=== PATIENT | male | born 1945 | race Caucasian/White ===

== ENCOUNTER 2017-04-10 08:46 | Day surgery (SDC) | payer OTHER ==
[~2017-04-10 08:46] MED LIST: ASPI-630 PO; ATOR40TA PO; CHOL500016 PO; DULA1.5P SQ; GLIM4TAB2 PO; HYDR12.58 PO; HYDROmorphone 2 MG/ML VIAL IV PRN; INSU300I SQ; IOHEXOL 300 MG/ML 50 ML VIAL. ONE; IV RINGERS,LACTATED 1000ML 1,000 ML IV SCH; LEVO50TA PO; LIDOCAINE 1% 1 ML SYRINGE. ID PRN; METO25TA9 PO; MORPHINE SULFATE 2 MG/ML DISP.SYRIN. IV PRN; NIAC500T PO; ONDANSETRON PF 4 MG/2 ML VIAL. IV PRN; PROCHLORPERAZINE 10 MG/2 ML VIAL. IV PRN; fentaNYL PF VIAL 100 MCG/2 ML VIAL IV PRN
[2017-04-10] MEDS ORDERED: IV RINGERS,LACTATED 1000ML 1,000 ML IV SCH (10:30)
[2017-04-10] MEDS ORDERED: LIDOCAINE 2% PF Vial for OR 5 ML VIAL. ONE (11:03)
[2017-04-10] MEDS ORDERED: DEXAMETHASONE SOD PHOS 20 MG/5 ML VIAL. ONE (11:03)
[2017-04-10] MEDS ORDERED: PROPOFOL 20 ML IV ONE (11:03)
[2017-04-10] MEDS ORDERED: fentaNYL PF VIAL 100 MCG/2 ML VIAL ONE (11:03)
[2017-04-10] MEDS ORDERED: ONDANSETRON PF 4 MG/2 ML VIAL. ONE (11:03)
[2017-04-10] MEDS ORDERED: SEVOFLURANE 31 TO 60 MINUTES. IH ONE (12:05)
--- NOTE | 2017-04-10 12:33 | PDOC ---
BRIEF OPERATIVE NOTE Date: Apr 10, 2017 Pre-Op Diagnosis Left hydronephrosis, atrophic left kidney Post-Op Diagnosis same, obstructed Left ureter Procedure Performed Cystoscopy left retrograde pyelogram Surgeon Beverly Anesthesia Type: General Specimens Obtained None Findings obstructed left ureter-etiology? Complications None Additional Remarks Ureter obstructed at level of sacral-iliac joint left MORENO RODRIGUEZ DO Apr 10, 2017 12:33
--- NOTE | 2017-04-10 12:34 | DISCH ---
DISCHARGE INSTRUCTIONS Condition on Discharge Condition on Discharge: Stable Activity After Discharge Activity Instructions for Disc: Activity as tolerated Driving Instructions after Dis: Do not drive today Diet after Discharge Diet after Discharge: Regular Contacting the DR. after DC Call your doctor for: Concerns you may have Follow-Up Follow up with: follow up with MORENO Owen DO Apr 10, 2017 12:34
[2017-04-10] MEDS ORDERED: CIPR500T94 PO (12:40)
[2017-04-10 13:06] VITALS: BP 150/70
--- NOTE | 2017-04-10 15:50 | OP ---
DATE OF SURGERY: 04/10/2017 PREOPERATIVE DIAGNOSIS: Left hydronephrosis, renal insufficiency. POSTOPERATIVE DIAGNOSIS: Left hydronephrosis, renal insufficiency, and obstructed left ureter. PROCEDURE: Cystoscopy, left retrograde pyelograms. SURGEON: Moreno Rodriguez DO ANESTHESIA: General. INDICATIONS AND JUDGMENT: This is a 72-year-old obese male, patient of Dr. Hernandez, who has renal insufficiency and is found to have left hydronephrosis and atrophic left kidney. It was felt that he should undergo cystoscopy, left retrograde pyelogram to investigate the etiology. The procedure was explained to the patient. He appeared to understand and was agreeable. DESCRIPTION OF PROCEDURE: The patient was preloaded with IV antibiotic. He was taken to the Operating Room and placed on the operating room table in supine position, given a general anesthetic and then placed in a dorsal lithotomy position using Ezekiel stirrup since we do not have a cystoscopy table. A C-arm was moved into position. Rigid cystoscopy was performed with a 21-[place] rigid cystoscope. The urethra was normal in course and caliber. He has a very high bladder neck and tight suspensory ligament, and it was somewhat difficult to get into the bladder. Once into the bladder, I was able to find the left ureteral orifice which was difficult to cannulate. I initially cannulated with an 8-[place] cone tip catheter and injected contrast. There was a hook defect in the distal ureter, and the contrast only went up to the level of the sacroiliac junction. I then attempted to pass a guide wire, but it became obstructed at the same level. Therefore, I passed a 5-[place] open-ended ureteral catheter up the ureter and then passed a wire through that, and even at that, the wire would not pass this obstruction of the ureter at the level of the sacroiliac joint. I injected contrast, and contrast would not pass this level either. Apparently, something has completely obstructed that ureter at this level. I was not able to get any type of wire or stent or contrast past this obstruction. The instruments were removed. The patient tolerated the procedure well and was sent to Recovery Room in satisfactory condition. The patient has a history of atrophic left kidney. Today's procedure reveals a complete obstruction of the distal left ureter at the level of the sacroiliac joint. Etiology is uncertain. 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 If there is a desire to proceed, it would have to be percutaneously through the kidney which may be difficult since the kidney is severely atrophic. The patient will be sent home on 3 days of Cipro antibiotics. He will follow up with Dr. Hernandez. MORENO RODRIGUEZ DO DR: PURNIMA/marcial JOB#: [id number] / [id number] Dr. Beverly Conde Dr.
== END 2017-04-10 13:23 | disposition home or self-care (01) ==
LOC: SURG 08:46
PROVIDERS: ATTEND Urology
DX: N13.1 Hydronephrosis with ureteral stricture, not elsewhere classified (principal); N28.9 Disorder of kidney and ureter, unspecified; N26.1 Atrophy of kidney (terminal); E78.00 Pure hypercholesterolemia, unspecified; I10 Essential (primary) hypertension; E03.9 Hypothyroidism, unspecified; E11.9 Type 2 diabetes mellitus without complications; Z98.42 Cataract extraction status, left eye; Z86.39 Personal history of other endocrine, nutritional and metabolic disease
CPT/HCPCS: 52005; 74420; 82962; C1769; J1100; J1956; J2405; J2704; J3010; Q9967

== ENCOUNTER 2018-12-27 14:07 | Inpatient (IN) | payer OTHER ==
[~2018-12-27] VITALS: Ht 170.2 cm; Wt 101.2 kg
[~2018-12-27 14:07] MED LIST changes: +CIPR500T94 PO; -HYDROmorphone 2 MG/ML VIAL IV PRN; -IOHEXOL 300 MG/ML 50 ML VIAL. ONE; -IV RINGERS,LACTATED 1000ML 1,000 ML IV SCH; -LIDOCAINE 1% 1 ML SYRINGE. ID PRN; +METO-239 PO; -METO25TA9 PO; -MORPHINE SULFATE 2 MG/ML DISP.SYRIN. IV PRN; -ONDANSETRON PF 4 MG/2 ML VIAL. IV PRN; -PROCHLORPERAZINE 10 MG/2 ML VIAL. IV PRN; -fentaNYL PF VIAL 100 MCG/2 ML VIAL IV PRN
[2018-12-27 15:00] VITALS: BP 130/54
--- NOTE | 2018-12-27 15:00 | NUR ---
Dr. Erickson notified while on the floor of consult, this nurse will continue to assist as needed.
--- NOTE | 2018-12-27 16:30 | NUR ---
This nurse discussed with Astrid, patient's niece, at [phone] about patient's home medications. Reviewed patient's home medications, preferred pharmacy, discussed with Trever RN, and will continue to assist as needed.
[2018-12-27] MEDS ORDERED: DEXTROSE 50% 25 GM / 50ML DISP.SYRIN. IV PRN (16:45)
[2018-12-27] MEDS ORDERED: INSULIN LISPRO 300 UNITS/3 ML INSULN.PEN. SQ SCH (17:00)
--- NOTE | 2018-12-27 18:01 | PDOC1 ---
History and Physical Date of Admission Date of Admission DATE: 12/27/18 TIME: 17:56 Identification/Chief Complaint Chief Complaint dark toes Source Source: Chart review, Patient History of Present Illness History of Present Illness Mr. Watson was transferred from ER at [facility]. he presented there today when he noticed his toes on his right foot had turned black. 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 toes are dry. He describes injuring them trying to nahed them into a shoe last week. He walks with a walker at baseline and lives at home His PCP is Noelle Andre Past Medical History Cardiovascular: HTN CENTRAL NERVOUS SYSTEM: CVA Endocrine: Diabetes Past Surgical History Past Surgical History: Other Family History Family History: Diabetes Social History ALCOHOL: none Current Medications Current Medications Current Medications Insulin Human Lispro (HumaLOG) 0-9 UNITS TIDWMEALS SQ ; Start 12/27/18 at 17:00 Dextrose (Dextrose 50%-Water Syringe) 12.5 gm PRN Q15MIN PRN IV SEE COMMENTS; Start 12/27/18 at 16:45 Active Scripts Active Reported Cipro (Ciprofloxacin Hcl) 500 Mg Tablet 1 Tab PO BID Niaspan (Niacin) 500 Mg Tab.er.24h 500 Mg PO HS Hydrochlorothiazide Tablet (Hydrochlorothiazide) 12.5 Mg Tablet 25 Mg PO DAILY Metoprolol Succinate ( Xl ) (Metoprolol Succinate) 25 Mg Tab.er.24h 25 Mg PO DAILY Lipitor (Atorvastatin Calcium) 40 Mg Tablet 40 Mg PO HS Trulicity (Dulaglutide) 1.5 Mg/0.5 Ml Pen.injctr 1.5 Mg SQ WEEKLY Toujeo Solostar (Insulin Glargine,Hum.rec.anlog) 300 Unit/1 Ml Insuln.pen 40 Unit SQ HS Aspirin 81 Mg Tab.chew 81 Mg PO BID Glimepiride 4 Mg Tablet 4 Mg PO BIDAC Synthroid (Levothyroxine Sodium) 50 Mcg Tablet 50 Mcg PO DAILYAC Vitamin D3 (Cholecalciferol (Vitamin D3)) 5,000 Unit Tablet 5,000 Unit PO DAILY Allergies Allergies: Coded Allergies: No Known Drug Allergies (Unverified , 04/10/17) ROS General: No: Chills, Night Sweats, Fatigue, Malaise, Appetite, Other PSYCHOLOGICAL ROS: YES: Sleep disturbances; No: Anxiety, Behavioral Disorder, Concentration difficultie, Decreased libido , Depression, Disorientation, Hallucinations, Hostility, Irritablity, Memory difficulties, Mood Swings, Obsessive thoughts, Other Eyes: No Blurry vision, No Decreased vision, No Double vision, No Dry eyes, No Excessive tearing, No Eye Pain, No Itchy Eyes, No Loss of vision, No Photophobia , No Scotomata, No Uses contacts, No Uses glasses, No Other Respiratory: YES: Cough; No: Hemoptysis, Orthopnea, Pleuritic Pain, Shortness of breath, SOB with excertion, Sputum Changes, Stridor, Tachypnea, Wheezing, Other Cardiovascular: No Chest Pain, No Palpitations, No Orthopnea, No Paroxysmal Noc. Dyspnea, No Edema, No Lt Headedness, No Other Gastrointestinal: No Nausea, No Vomiting, No Abdominal Pain, No Diarrhea, No Constipation, No Melena, No Hematochezia, No Other Genitourinary: No Dysuria, No Frequency, No Incontinence, No Hematuria, No Retention, No Discharge, No Urgency, No Pain, No Flank Pain, No Other, No , No , No , No , No , No , No Musculoskeletal: No Gait Disturbance, No Joint Pain, No Joint Stiffness, No Joint Swelling, No Muscle Pain, No Muscular Weakness, No Pain In:, No Swelling In:, No Other Neurological: No Behavorial Changes, No Bowel/Bladder ControlChng, No Confusion , No Dizziness, No Gait Disturbance, No Headaches, No Impaired Coord/balance, No Memory Loss, No Numbness/Tingling, No Seizures, No Speech Problems, No Tremors, No Visual Changes, No Weakness, No Other Physical Exam General: Oriented X3, No acute distress HEENT: Atraumatic, PERRLA, EOMI Lungs: Normal air movement Heart: murmurs, jugular vein distention Abdomen: Normal bowel sounds, Soft Rectal Exam: not examined Extremities: No clubbing, No edema Skin: Other (left great toe with ulcer, black and dry toes to right foot, all and malordorous) Neuro: Normal gait, Normal speech, Normal tone, Sensation intact Psych/Mental Status: Mood NL Vitals Vitals Vital Signs Date Time Temp Pulse Resp B/P (MAP) Pulse Ox O2 Delivery O2 Flow Rate FiO2 12/27/18 16:03 Room Air 12/27/18 15:00 98.8 88 18 130/54 (79) 93 98.8 VTE Prophylaxis Ordered VTE Prophylaxis Devices: Yes VTE Pharmacological Prophylaxi: No Assessment/Plan Assessment/Plan dry gangrene, ischemic toes, peripheral vascular disease and osteomyelitis, will prob need amputation, consult Vascular and orhto DM2 prior CVA, vasculopathy, his family had stopped his aspirin and substituted tylenol obese, BMI 33 admit KARLA RODRIGUEZ MD Dec 27, 2018 18:01
[2018-12-27 18:02] LABS: BASO # 0.1 x10^3/uL (0.0-0.2); BASO % 1 % (0-3); EOS # 0.1 x10^3/uL (0.0-0.7); EOS % 1 % (0-3); HEMATOCRIT 34.1 % (39.0-53.0); HEMOGLOBIN 11.1 g/dL (13.0-17.5); LYMPH # 1.6 x10^3/uL (1.0-4.8); LYMPH % 12 % (24-48); MEAN CORPUSCULAR HEMOGLOBIN 30 pg (25-35); MEAN CORPUSCULAR HGB CONC 33 g/dL (31-37); MEAN CORPUSCULAR VOLUME 91 fL (79-100); MONO # 1.2 x10^3/uL (0.0-1.1); MONO % 9 % (0-9); NEUT # 10.4 x10^3uL (1.8-7.7); NEUT % 77 % (31-73); PLATELET COUNT 505 x10^3/uL (140-400); RED BLOOD COUNT 3.75 x10^6/uL (4.30-5.70); RED CELL DISTRIBUTION WIDTH 13.8 % (11.5-14.5); WHITE BLOOD COUNT 13.5 x10^3/uL (4.0-11.0)
[2018-12-27 18:11] LABS: C-REACTIVE PROTEIN 71.8 mg/L (0-3.3); CALCIUM 9.2 mg/dL (8.5-10.1); CREATININE 1.9 mg/dL (0.7-1.3); POTASSIUM 4.3 mmol/L (3.5-5.1)
[2018-12-27] MEDS: GLIMEPIRIDE 2 MG TABLET. PO SCH (18:30)
[2018-12-27 19:00] VITALS: BP 142/67
[2018-12-27] MEDS: NIACIN ER 500 MG TABLET.ER PO SCH (21:18)
[2018-12-27] MEDS: ATORVASTATIN CALCIUM 40 MG TABLET. PO SCH (21:18)
[2018-12-27] MEDS: INSULIN GLARGINE 300 UNITS/3 ML INSULN.PEN. SQ SCH (21:24)
[2018-12-27 23:00] VITALS: BP 116/67
[2018-12-28 03:00] VITALS: BP 157/50
[2018-12-28] MEDS: LEVOTHYROXINE 50 MCG TABLET PO SCH (05:41)
[2018-12-28 06:45] LABS: ALBUMIN 2.5 g/dL (3.4-5.0); ALBUMIN/GLOBULIN RATIO 0.5 (1.0-1.7); CALCIUM 9.5 mg/dL (8.5-10.1); CREATININE 1.9 mg/dL (0.7-1.3); POTASSIUM 4.2 mmol/L (3.5-5.1); TOTAL BILIRUBIN 0.8 mg/dL (0.2-1.0); TOTAL PROTEIN 7.9 g/dL (6.4-8.2)
[2018-12-28 06:59] LABS: BASO # 0.1 x10^3/uL (0.0-0.2); BASO % 1 % (0-3); EOS # 0.1 x10^3/uL (0.0-0.7); EOS % 1 % (0-3); HEMATOCRIT 35.9 % (39.0-53.0); HEMOGLOBIN 11.7 g/dL (13.0-17.5); LYMPH # 1.3 x10^3/uL (1.0-4.8); LYMPH % 11 % (24-48); MEAN CORPUSCULAR HEMOGLOBIN 30 pg (25-35); MEAN CORPUSCULAR HGB CONC 33 g/dL (31-37); MEAN CORPUSCULAR VOLUME 91 fL (79-100); MONO # 0.9 x10^3/uL (0.0-1.1); MONO % 8 % (0-9); NEUT % 79 % (31-73); PLATELET COUNT 472 x10^3/uL (140-400); RED BLOOD COUNT 3.94 x10^6/uL (4.30-5.70); WHITE BLOOD COUNT 11.4 x10^3/uL (4.0-11.0)
[2018-12-28 07:00] VITALS: BP 108/49
[2018-12-28] MEDS ORDERED: LABETALOL 20 MG/4 ML DISP.SYRIN. IVP PRN (08:00)
[2018-12-28] MEDS ORDERED: ONDANSETRON PF 4 MG/2 ML VIAL. IV PRN (08:00)
[2018-12-28] MEDS ORDERED: ACETAMINOPHEN 500 MG TABLET PO PRN (08:00)
[2018-12-28] MEDS ORDERED: ONDANSETRON ODT 4 MG TAB.RAPDIS. PO PRN (08:00)
[2018-12-28] MEDS ORDERED: ACETAMINOPHEN/CODEINE 300/30MG TABLET. PO PRN (08:00)
--- NOTE | 2018-12-28 08:37 | NUR ---
SW reviewed pt's chart and evaluated for dc needs. Pt is from home and was admitted for gangrene and may need toes amputated. PT/OT has been ordered. SW will await PT/OT recommendations and proceed accordingly.
--- NOTE | 2018-12-28 08:50 | PDOC2 ---
CONSULT Date of Consult Date of Consult DATE: 12/28/18 TIME: 08:15 Reason for Consult Reason for Consult: Right foot gangrene Referring Physician Referring Physician: Noni Mcclendon MD History of Present Illness Reason for Visit: Pt is a pleasant 73 year old male with history of CAD, DM, PAD, CVA, eye problems who is admitted for right foot black toes. He reports he only noticed this 4 or 5 days ago, however he's been told in the past to keep his feet covered to protect them without checking them often and he can't see well so it may have been present longer. He believes it was injury related because he repeatedly "shoved" his feet into shoes that were too small and that it started with a sore on his 5th toe. He does not have any pain associated with this, but does report some discomfort to the balls of his feet. All 5 of his toes are black on his right foot and he has noticed some swelling and redness. The patient reports he used to smoke for many years, but quit in 2004 when he had his heart stent placed. The patient reports having a doctor in [place] look at the circulation in his legs where they "opened em up" and his foot pain resolved, he denies peripheral stents. He had heart stent placed in 2004. The patient reports having a CVA in September of 2018, without residual deficits. Unsure if his carotids have been examined. He denies recent antibiotic use. His arterial duplex shows monophasic flow from distal SFA throughout distal right leg. His left leg has triphasic flow throughout common fem to popliteal, monophasic from Posterior tib to dorsalis pedis. Surgical history consists of abdominal surgery (pt has scar, but reports it was a colonoscopy) and right ankle surgery with metal repair. The patient reports he only has one kidney. Past Medical History Cardiovascular: HTN CENTRAL NERVOUS SYSTEM: CVA Endocrine: Diabetes Past Surgical History Past Surgical History: Other Family History Family History Mother - DM and parkinsons disease Father - DM Family History: Diabetes Social History ALCOHOL: none Current Medications Current Medications Current Medications Insulin Human Lispro (HumaLOG) 0-9 UNITS TIDWMEALS SQ Last administered on 12/27at 18:33; Start 12/27/18 at 17:00; Stop 12/28/18 at 07:59; Status DC Dextrose (Dextrose 50%-Water Syringe) 12.5 gm PRN Q15MIN PRN IV SEE COMMENTS; Start 12/27/18 at 16:45 Atorvastatin Calcium (Lipitor) 40 mg HS PO Last administered on 12/27/18at 21:18 ; Start 12/27/18 at 21:00 Metoprolol Succinate (Toprol Xl) 25 mg DAILY PO ; Start 12/28/18 at 09:00 Niacin (Slo-Niacin) 500 mg HS PO Last administered on 12/27/18at 21:18; Start at 21:00 Vitamin D (Vitamin D3) 5,000 unit DAILY PO ; Start 12/28/18 at 09:00 Non-Formulary Medication (Dulaglutide (Trulicity)) 1.5 mg WEEKLY SQ ; Start 01/03 at 09:00; Status UNV Glimepiride (Amaryl) 4 mg BIDAC PO Last administered on 12/27/18at 18:30; Start 12/27/18 at 18:30 Hydrochlorothiazide (Hydrodiuril) 25 mg DAILY PO ; Start 12/28/18 at 09:00 Insulin Glargine (Lantus) 32 units QHS SQ Last administered on 12/27/18at 21:24 ; Start 12/27/18 at 21:00 Levothyroxine Sodium (Synthroid) 50 mcg DAILY06 PO Last administered on at 05:41; Start 12/28/18 at 06:00 Insulin Human Lispro (HumaLOG) 0-9 UNITS TIDACHC SQ ; Start 12/28/18 at 11:30; Status UNV Labetalol HCl (Normodyne Iv Push) 10 mg PRN Q2HR PRN IVP HYPERTENSION, SEE COMMENTS; Start 12/28/18 at 08:00; Status UNV Acetaminophen (Tylenol) 500 mg PRN Q6HRS PRN PO MILD PAIN / TEMP; Start at 08:00; Status UNV Acetaminophen/ Codeine Phosphate (Tylenol #3) 1 tab PRN Q6HRS PRN PO PAIN; Start 12/28/18 at 08:00; Status UNV Ondansetron HCl (Zofran) 4 mg PRN Q6HRS PRN IV NAUSEA/VOMITING; Start 12/28/18 at 08:00; Status UNV Ondansetron HCl (Zofran Odt) 4 mg PRN Q6HRS PRN PO NAUSEA/VOMITING; Start 12/28 at 08:00; Status UNV Active Scripts Active Reported Cipro (Ciprofloxacin Hcl) 500 Mg Tablet 1 Tab PO BID Niaspan (Niacin) 500 Mg Tab.er.24h 500 Mg PO HS Hydrochlorothiazide Tablet (Hydrochlorothiazide) 12.5 Mg Tablet 25 Mg PO DAILY Metoprolol Succinate ( Xl ) (Metoprolol Succinate) 25 Mg Tab.er.24h 25 Mg PO DAILY Lipitor (Atorvastatin Calcium) 40 Mg Tablet 40 Mg PO HS Trulicity (Dulaglutide) 1.5 Mg/0.5 Ml Pen.injctr 1.5 Mg SQ WEEKLY Toujeo Solostar (Insulin Glargine,Hum.rec.anlog) 300 Unit/1 Ml Insuln.pen 40 Unit SQ HS Aspirin 81 Mg Tab.chew 81 Mg PO BID Glimepiride 4 Mg Tablet 4 Mg PO BIDAC Synthroid (Levothyroxine Sodium) 50 Mcg Tablet 50 Mcg PO DAILYAC Vitamin D3 (Cholecalciferol (Vitamin D3)) 5,000 Unit Tablet 5,000 Unit PO DAILY Allergies Allergies: Coded Allergies: No Known Drug Allergies (Unverified , 04/10/17) ROS General: No: Chills, Fatigue PSYCHOLOGICAL ROS: No: Anxiety, Depression Eyes: Yes Blurry vision, Yes Decreased vision, Yes Loss of vision HEENT: No: Heacaches, Nasal congestion ALLERGY AND IMMUNOLOGY: No: Nasal Congestion Hematological and Lymphatic: No: Bleeding Problems, Blood Clots, Brusing Respiratory: No: Cough, Shortness of breath Cardiovascular: No Chest Pain, No Palpitations Gastrointestinal: No Nausea, No Vomiting, No Abdominal Pain, No Diarrhea Musculoskeletal: Yes Swelling In: (right foot); No Gait Disturbance, No Joint Pain, No Muscular Weakness Neurological: No Behavorial Changes, No Confusion, No Gait Disturbance Skin: Yes Dry Skin, Yes Rash, Yes Skin Lesion Changes Physical Exam General: Alert, Oriented X3, Cooperative, No acute distress HEENT: Atraumatic Lungs: Clear to auscultation, Normal air movement Heart: Regular rate, Normal S1, Normal S2, No murmurs Abdomen: Soft, No tenderness Extremities: No clubbing, No cyanosis, Other (Right foot edema up to mid armijo) Skin: Other (Left foot with hard calloused ulcer to left great toe medial plantar surface. Right foot with dry, hard eschar to all 5 toes, more prominent on plantar surface. There is no drainage throughout. The right foot had erythema and edema extending just above ankle. ) Neuro: Normal speech, Other (Poor sensation to right plantar foot, limited to proximal plantar surface. Same on left foot. ) Psych/Mental Status: Mental status NL, Mood NL Vitals VITALS Vital Signs Date Time Temp Pulse Resp B/P (MAP) Pulse Ox O2 Delivery O2 Flow Rate FiO2 12/28/18 03:00 98.0 86 18 157/50 (85) 92 Room Air 98.0 Labs Labs Laboratory Tests Test 12/27/18 17:20 12/27/18 20:55 12/28/18 05:00 White Blood Count 13.5 x10^3/uL (4.0-11.0) 11.4 x10^3/uL (4.0-11.0) Red Blood Count 3.75 x10^6/uL (4.30-5.70) 3.94 x10^6/uL (4.30-5.70) Hemoglobin 11.1 g/dL (13.0-17.5) 11.7 g/dL (13.0-17.5) Hematocrit 34.1 % (39.0-53.0) 35.9 % (39.0-53.0) Mean Corpuscular Volume 91 fL (79-100) 91 fL (79-100) Mean Corpuscular Hemoglobin 30 pg (25-35) 30 pg (25-35) Mean Corpuscular Hemoglobin Concent 33 g/dL (31-37) 33 g/dL (31-37) Red Cell Distribution Width 13.8 % (11.5-14.5) 14.0 % (11.5-14.5) Platelet Count 505 x10^3/uL (140-400) 472 x10^3/uL (140-400) Neutrophils (%) (Auto) 77 % (31-73) 79 % (31-73) Lymphocytes (%) (Auto) 12 % (24-48) 11 % (24-48) Monocytes (%) (Auto) 9 % (0-9) 8 % (0-9) Eosinophils (%) (Auto) 1 % (0-3) 1 % (0-3) Basophils (%) (Auto) 1 % (0-3) 1 % (0-3) Neutrophils # (Auto) 10.4 x10^3uL (1.8-7.7) 9.0 x10^3uL (1.8-7.7) Lymphocytes # (Auto) 1.6 x10^3/uL (1.0-4.8) 1.3 x10^3/uL (1.0-4.8) Monocytes # (Auto) 1.2 x10^3/uL (0.0-1.1) 0.9 x10^3/uL (0.0-1.1) Eosinophils # (Auto) 0.1 x10^3/uL (0.0-0.7) 0.1 x10^3/uL (0.0-0.7) Basophils # (Auto) 0.1 x10^3/uL (0.0-0.2) 0.1 x10^3/uL (0.0-0.2) Sodium Level 139 mmol/L (136-145) 142 mmol/L (136-145) Potassium Level 4.3 mmol/L (3.5-5.1) 4.2 mmol/L (3.5-5.1) Chloride Level 100 mmol/L (98-107) 102 mmol/L (98-107) Carbon Dioxide Level 27 mmol/L (21-32) 27 mmol/L (21-32) Anion Gap 12 (6-14) 13 (6-14) Blood Urea Nitrogen 41 mg/dL (8-26) 38 mg/dL (8-26) Creatinine 1.9 mg/dL (0.7-1.3) 1.9 mg/dL (0.7-1.3) Estimated GFR (Cockcroft-Gault) 35.0 35.0 Glucose Level 189 mg/dL (70-99) 106 mg/dL (70-99) Calcium Level 9.2 mg/dL (8.5-10.1) 9.5 mg/dL (8.5-10.1) C-Reactive Protein, Quantitative 71.8 mg/L (0-3.3) Procalcitonin < 0.10 ng/mL (0.00-0.10) Glucose (Fingerstick) 142 mg/dL (70-99) BUN/Creatinine Ratio 20 (6-20) Total Bilirubin 0.8 mg/dL (0.2-1.0) Aspartate Amino Transf (AST/SGOT) 20 U/L (15-37) Alanine Aminotransferase (ALT/SGPT) 18 U/L (16-63) Alkaline Phosphatase 129 U/L (46-116) Total Protein 7.9 g/dL (6.4-8.2) Albumin 2.5 g/dL (3.4-5.0) Albumin/Globulin Ratio 0.5 (1.0-1.7) Laboratory Tests Test 12/27/18 17:20 12/27/18 20:55 12/28/18 05:00 White Blood Count 13.5 x10^3/uL (4.0-11.0) 11.4 x10^3/uL (4.0-11.0) Red Blood Count 3.75 x10^6/uL (4.30-5.70) 3.94 x10^6/uL (4.30-5.70) Hemoglobin 11.1 g/dL (13.0-17.5) 11.7 g/dL (13.0-17.5) Hematocrit 34.1 % (39.0-53.0) 35.9 % (39.0-53.0) Mean Corpuscular Volume 91 fL (79-100) 91 fL (79-100) Mean Corpuscular Hemoglobin 30 pg (25-35) 30 pg (25-35) Mean Corpuscular Hemoglobin Concent 33 g/dL (31-37) 33 g/dL (31-37) Red Cell Distribution Width 13.8 % (11.5-14.5) 14.0 % (11.5-14.5) Platelet Count 505 x10^3/uL (140-400) 472 x10^3/uL (140-400) Neutrophils (%) (Auto) 77 % (31-73) 79 % (31-73) Lymphocytes (%) (Auto) 12 % (24-48) 11 % (24-48) Monocytes (%) (Auto) 9 % (0-9) 8 % (0-9) Eosinophils (%) (Auto) 1 % (0-3) 1 % (0-3) Basophils (%) (Auto) 1 % (0-3) 1 % (0-3) Neutrophils # (Auto) 10.4 x10^3uL (1.8-7.7) 9.0 x10^3uL (1.8-7.7) Lymphocytes # (Auto) 1.6 x10^3/uL (1.0-4.8) 1.3 x10^3/uL (1.0-4.8) Monocytes # (Auto) 1.2 x10^3/uL (0.0-1.1) 0.9 x10^3/uL (0.0-1.1) Eosinophils # (Auto) 0.1 x10^3/uL (0.0-0.7) 0.1 x10^3/uL (0.0-0.7) Basophils # (Auto) 0.1 x10^3/uL (0.0-0.2) 0.1 x10^3/uL (0.0-0.2) Sodium Level 139 mmol/L (136-145) 142 mmol/L (136-145) Potassium Level 4.3 mmol/L (3.5-5.1) 4.2 mmol/L (3.5-5.1) Chloride Level 100 mmol/L (98-107) 102 mmol/L (98-107) Carbon Dioxide Level 27 mmol/L (21-32) 27 mmol/L (21-32) Anion Gap 12 (6-14) 13 (6-14) Blood Urea Nitrogen 41 mg/dL (8-26) 38 mg/dL (8-26) Creatinine 1.9 mg/dL (0.7-1.3) 1.9 mg/dL (0.7-1.3) Estimated GFR (Cockcroft-Gault) 35.0 35.0 Glucose Level 189 mg/dL (70-99) 106 mg/dL (70-99) Calcium Level 9.2 mg/dL (8.5-10.1) 9.5 mg/dL (8.5-10.1) C-Reactive Protein, Quantitative 71.8 mg/L (0-3.3) Procalcitonin < 0.10 ng/mL (0.00-0.10) Glucose (Fingerstick) 142 mg/dL (70-99) BUN/Creatinine Ratio 20 (6-20) Total Bilirubin 0.8 mg/dL (0.2-1.0) Aspartate Amino Transf (AST/SGOT) 20 U/L (15-37) Alanine Aminotransferase (ALT/SGPT) 18 U/L (16-63) Alkaline Phosphatase 129 U/L (46-116) Total Protein 7.9 g/dL (6.4-8.2) Albumin 2.5 g/dL (3.4-5.0) Albumin/Globulin Ratio 0.5 (1.0-1.7) Assessment/Plan Assessment/Plan Diabetic patient with dry gangrene to all 5 of his right toes. Arterial US showed monophasic flow from distal SFA throughout distal right leg. His left leg has triphasic flow throughout common fem to popliteal, monophasic from Posterior tib to dorsalis pedis. He reportedly has had arteriogram in the past with likely intervention, however the patient denies stents. I have been unable to find records of this, he reports it was done in [place]. The patient has mild leukocytosis. We recommend repeat arteriogram with possible intervention to optimize circulation for healing. The patient will then require a right transmetatarsal amputation. I have discussed this at length with the patient who exhibited understanding and agreed to proceed. I will get a foot xray to see exact location of the metal plate and screws from his right ankle reconstructive surgery. We recommend the patient begin daily baby aspirin and be started on antibiotics as there is some cellulitic changes to proximal right foot and ankle. The arteriogram will take place tomorrow with Dr. Yung at 1330. TATI HATCH Dec 28, 2018 08:50
--- NOTE | 2018-12-28 09:05 | PDOC ---
PROGRESS NOTES Subjective Subjective Problems overnight: Objective Vital Signs Vital Signs Date Time Temp Pulse Resp B/P (MAP) Pulse Ox O2 Delivery O2 Flow Rate FiO2 12/28/18 07:00 97.8 90 18 108/49 (68) 95 Room Air 97.8 Labs Laboratory Tests Test 12/27/18 17:20 12/27/18 20:55 12/28/18 05:00 12/28/18 07:28 White Blood Count 13.5 x10^3/uL (4.0-11.0) 11.4 x10^3/uL (4.0-11.0) Red Blood Count 3.75 x10^6/uL (4.30-5.70) 3.94 x10^6/uL (4.30-5.70) Hemoglobin 11.1 g/dL (13.0-17.5) 11.7 g/dL (13.0-17.5) Hematocrit 34.1 % (39.0-53.0) 35.9 % (39.0-53.0) Mean Corpuscular Volume 91 fL (79-100) 91 fL (79-100) Mean Corpuscular Hemoglobin 30 pg (25-35) 30 pg (25-35) Mean Corpuscular Hemoglobin Concent 33 g/dL (31-37) 33 g/dL (31-37) Red Cell Distribution Width 13.8 % (11.5-14.5) 14.0 % (11.5-14.5) Platelet Count 505 x10^3/uL (140-400) 472 x10^3/uL (140-400) Neutrophils (%) (Auto) 77 % (31-73) 79 % (31-73) Lymphocytes (%) (Auto) 12 % (24-48) 11 % (24-48) Monocytes (%) (Auto) 9 % (0-9) 8 % (0-9) Eosinophils (%) (Auto) 1 % (0-3) 1 % (0-3) Basophils (%) (Auto) 1 % (0-3) 1 % (0-3) Neutrophils # (Auto) 10.4 x10^3uL (1.8-7.7) 9.0 x10^3uL (1.8-7.7) Lymphocytes # (Auto) 1.6 x10^3/uL (1.0-4.8) 1.3 x10^3/uL (1.0-4.8) Monocytes # (Auto) 1.2 x10^3/uL (0.0-1.1) 0.9 x10^3/uL (0.0-1.1) Eosinophils # (Auto) 0.1 x10^3/uL (0.0-0.7) 0.1 x10^3/uL (0.0-0.7) Basophils # (Auto) 0.1 x10^3/uL (0.0-0.2) 0.1 x10^3/uL (0.0-0.2) Sodium Level 139 mmol/L (136-145) 142 mmol/L (136-145) Potassium Level 4.3 mmol/L (3.5-5.1) 4.2 mmol/L (3.5-5.1) Chloride Level 100 mmol/L (98-107) 102 mmol/L (98-107) Carbon Dioxide Level 27 mmol/L (21-32) 27 mmol/L (21-32) Anion Gap 12 (6-14) 13 (6-14) Blood Urea Nitrogen 41 mg/dL (8-26) 38 mg/dL (8-26) Creatinine 1.9 mg/dL (0.7-1.3) 1.9 mg/dL (0.7-1.3) Estimated GFR (Cockcroft-Gault) 35.0 35.0 Glucose Level 189 mg/dL (70-99) 106 mg/dL (70-99) Calcium Level 9.2 mg/dL (8.5-10.1) 9.5 mg/dL (8.5-10.1) C-Reactive Protein, Quantitative 71.8 mg/L (0-3.3) Procalcitonin < 0.10 ng/mL (0.00-0.10) Glucose (Fingerstick) 142 mg/dL (70-99) 95 mg/dL (70-99) BUN/Creatinine Ratio 20 (6-20) Total Bilirubin 0.8 mg/dL (0.2-1.0) Aspartate Amino Transf (AST/SGOT) 20 U/L (15-37) Alanine Aminotransferase (ALT/SGPT) 18 U/L (16-63) Alkaline Phosphatase 129 U/L (46-116) Total Protein 7.9 g/dL (6.4-8.2) Albumin 2.5 g/dL (3.4-5.0) Albumin/Globulin Ratio 0.5 (1.0-1.7) Laboratory Tests Test 12/27/18 17:20 12/27/18 20:55 12/28/18 05:00 12/28/18 07:28 White Blood Count 13.5 x10^3/uL (4.0-11.0) 11.4 x10^3/uL (4.0-11.0) Red Blood Count 3.75 x10^6/uL (4.30-5.70) 3.94 x10^6/uL (4.30-5.70) Hemoglobin 11.1 g/dL (13.0-17.5) 11.7 g/dL (13.0-17.5) Hematocrit 34.1 % (39.0-53.0) 35.9 % (39.0-53.0) Mean Corpuscular Volume 91 fL (79-100) 91 fL (79-100) Mean Corpuscular Hemoglobin 30 pg (25-35) 30 pg (25-35) Mean Corpuscular Hemoglobin Concent 33 g/dL (31-37) 33 g/dL (31-37) Red Cell Distribution Width 13.8 % (11.5-14.5) 14.0 % (11.5-14.5) Platelet Count 505 x10^3/uL (140-400) 472 x10^3/uL (140-400) Neutrophils (%) (Auto) 77 % (31-73) 79 % (31-73) Lymphocytes (%) (Auto) 12 % (24-48) 11 % (24-48) Monocytes (%) (Auto) 9 % (0-9) 8 % (0-9) Eosinophils (%) (Auto) 1 % (0-3) 1 % (0-3) Basophils (%) (Auto) 1 % (0-3) 1 % (0-3) Neutrophils # (Auto) 10.4 x10^3uL (1.8-7.7) 9.0 x10^3uL (1.8-7.7) Lymphocytes # (Auto) 1.6 x10^3/uL (1.0-4.8) 1.3 x10^3/uL (1.0-4.8) Monocytes # (Auto) 1.2 x10^3/uL (0.0-1.1) 0.9 x10^3/uL (0.0-1.1) Eosinophils # (Auto) 0.1 x10^3/uL (0.0-0.7) 0.1 x10^3/uL (0.0-0.7) Basophils # (Auto) 0.1 x10^3/uL (0.0-0.2) 0.1 x10^3/uL (0.0-0.2) Sodium Level 139 mmol/L (136-145) 142 mmol/L (136-145) Potassium Level 4.3 mmol/L (3.5-5.1) 4.2 mmol/L (3.5-5.1) Chloride Level 100 mmol/L (98-107) 102 mmol/L (98-107) Carbon Dioxide Level 27 mmol/L (21-32) 27 mmol/L (21-32) Anion Gap 12 (6-14) 13 (6-14) Blood Urea Nitrogen 41 mg/dL (8-26) 38 mg/dL (8-26) Creatinine 1.9 mg/dL (0.7-1.3) 1.9 mg/dL (0.7-1.3) Estimated GFR (Cockcroft-Gault) 35.0 35.0 Glucose Level 189 mg/dL (70-99) 106 mg/dL (70-99) Calcium Level 9.2 mg/dL (8.5-10.1) 9.5 mg/dL (8.5-10.1) C-Reactive Protein, Quantitative 71.8 mg/L (0-3.3) Procalcitonin < 0.10 ng/mL (0.00-0.10) Glucose (Fingerstick) 142 mg/dL (70-99) 95 mg/dL (70-99) BUN/Creatinine Ratio 20 (6-20) Total Bilirubin 0.8 mg/dL (0.2-1.0) Aspartate Amino Transf (AST/SGOT) 20 U/L (15-37) Alanine Aminotransferase (ALT/SGPT) 18 U/L (16-63) Alkaline Phosphatase 129 U/L (46-116) Total Protein 7.9 g/dL (6.4-8.2) Albumin 2.5 g/dL (3.4-5.0) Albumin/Globulin Ratio 0.5 (1.0-1.7) Assessment Assessment POD# [], S/P [] Plan Plan of Care [employer] surgery consult at and following due to circulatory issues including peripheral vascular disease and question of previous intervention with foot necrosis Plans noted for arteriogram and likely amputation with possible other vascular intervention No need for orthopedic intervention as a result SMITA KEANE MD Dec 28, 2018 09:05
[2018-12-28] MEDS: CHOLECALCIFEROL (VITAMIN D3) 5,000 UNIT CAPSULE PO SCH (09:06)
[2018-12-28] MEDS: hydroCHLOROthiazide 25 MG TABLET PO SCH (09:06)
[2018-12-28] MEDS: GLIMEPIRIDE 2 MG TABLET. PO SCH ×2 (09:07→16:30)
[2018-12-28] MEDS: METOPROLOL SUCC 24HR ER 25 MG TAB.ER.24H. PO SCH (09:07)
--- NOTE | 2018-12-28 09:44 | PDOC ---
PROGRESS NOTES Chief Complaint Chief Complaint dry gangrene, ischemic toes, peripheral vascular disease and poss osteo? will prob need amputation, DM2 prior CVA, vasculopathy, his family had stopped his aspirin and substituted tylenol obese, BMI 33 History of Present Illness History of Present Illness Right foot inspected, all 4 toes gangrenous Minimal sensation on that extremity Surgeon has seen the patient - talks about vein mapping? IR involvement? Blood sugars okay, unknown hemoglobin A1c Patient tells me he takes trulicity and another medication for DM WBC 11, hemoglobin 11, platelets 482, creatinine 1.9-likely CK D component PLAN: xray RT foot and duplex bilateral extremities ordered Continue current insulin regimen seems to be working Hemoglobin A1c still pending Blood pressure high, add labetalol when necessary Avoid Nephrotoxins-creatinine 1.9 in this diabetic with PVD CAn ff up OP renal Vitals Vitals Vital Signs Date Time Temp Pulse Resp B/P (MAP) Pulse Ox O2 Delivery O2 Flow Rate FiO2 12/28/18 09:07 90 108/49 12/28/18 07:00 97.8 18 95 Room Air 97.8 Physical Exam General: Alert, Oriented X3, Cooperative, No acute distress Heart: Regular rate, Normal S1, Normal S2, No murmurs Abdomen: Soft, No tenderness Extremities: No clubbing, No cyanosis, Other (Right foot edema up to mid armijo) Skin: Other (Left foot with hard calloused ulcer to left great toe medial plantar surface. Right foot with dry, hard eschar to all 5 toes, more prominent on plantar surface. There is no drainage throughout. The right foot had erythema and edema extending just above ankle. ) Labs LABS Laboratory Tests Test 12/27/18 17:20 12/27/18 20:55 12/28/18 05:00 12/28/18 07:28 White Blood Count 13.5 x10^3/uL (4.0-11.0) 11.4 x10^3/uL (4.0-11.0) Red Blood Count 3.75 x10^6/uL (4.30-5.70) 3.94 x10^6/uL (4.30-5.70) Hemoglobin 11.1 g/dL (13.0-17.5) 11.7 g/dL (13.0-17.5) Hematocrit 34.1 % (39.0-53.0) 35.9 % (39.0-53.0) Mean Corpuscular Volume 91 fL (79-100) 91 fL (79-100) Mean Corpuscular Hemoglobin 30 pg (25-35) 30 pg (25-35) Mean Corpuscular Hemoglobin Concent 33 g/dL (31-37) 33 g/dL (31-37) Red Cell Distribution Width 13.8 % (11.5-14.5) 14.0 % (11.5-14.5) Platelet Count 505 x10^3/uL (140-400) 472 x10^3/uL (140-400) Neutrophils (%) (Auto) 77 % (31-73) 79 % (31-73) Lymphocytes (%) (Auto) 12 % (24-48) 11 % (24-48) Monocytes (%) (Auto) 9 % (0-9) 8 % (0-9) Eosinophils (%) (Auto) 1 % (0-3) 1 % (0-3) Basophils (%) (Auto) 1 % (0-3) 1 % (0-3) Neutrophils # (Auto) 10.4 x10^3uL (1.8-7.7) 9.0 x10^3uL (1.8-7.7) Lymphocytes # (Auto) 1.6 x10^3/uL (1.0-4.8) 1.3 x10^3/uL (1.0-4.8) Monocytes # (Auto) 1.2 x10^3/uL (0.0-1.1) 0.9 x10^3/uL (0.0-1.1) Eosinophils # (Auto) 0.1 x10^3/uL (0.0-0.7) 0.1 x10^3/uL (0.0-0.7) Basophils # (Auto) 0.1 x10^3/uL (0.0-0.2) 0.1 x10^3/uL (0.0-0.2) Sodium Level 139 mmol/L (136-145) 142 mmol/L (136-145) Potassium Level 4.3 mmol/L (3.5-5.1) 4.2 mmol/L (3.5-5.1) Chloride Level 100 mmol/L (98-107) 102 mmol/L (98-107) Carbon Dioxide Level 27 mmol/L (21-32) 27 mmol/L (21-32) Anion Gap 12 (6-14) 13 (6-14) Blood Urea Nitrogen 41 mg/dL (8-26) 38 mg/dL (8-26) Creatinine 1.9 mg/dL (0.7-1.3) 1.9 mg/dL (0.7-1.3) Estimated GFR (Cockcroft-Gault) 35.0 35.0 Glucose Level 189 mg/dL (70-99) 106 mg/dL (70-99) Calcium Level 9.2 mg/dL (8.5-10.1) 9.5 mg/dL (8.5-10.1) C-Reactive Protein, Quantitative 71.8 mg/L (0-3.3) Procalcitonin < 0.10 ng/mL (0.00-0.10) Glucose (Fingerstick) 142 mg/dL (70-99) 95 mg/dL (70-99) Erythrocyte Sedimentation Rate 120 (0-15) BUN/Creatinine Ratio 20 (6-20) Total Bilirubin 0.8 mg/dL (0.2-1.0) Aspartate Amino Transf (AST/SGOT) 20 U/L (15-37) Alanine Aminotransferase (ALT/SGPT) 18 U/L (16-63) Alkaline Phosphatase 129 U/L (46-116) Total Protein 7.9 g/dL (6.4-8.2) Albumin 2.5 g/dL (3.4-5.0) Albumin/Globulin Ratio 0.5 (1.0-1.7) Review of Systems Review of Systems A 14 point ROS was completed with the following noted as positive: Other systems reviewed and negative. \CONSTITUTIONAL: No fever or chills EYES: No recent changes SKIN: No rash or itching CARDIOVASCULAR: No chest pain, syncope, palpitations, or edema RESPIRATORY: No SOB or cough GASTROINTESTINAL: No nausea, vomiting or abdominal pain NEUROLOGICAL: No headaches or weakness ENDOCRINE: No cold or heat intolerance GENITOURINARY: No urgency or frequency of urination MUSCULOSKELETAL: No back pain or joint pain LYMPHATICS: No enlarged lymph nodes PSYCHIATRIC: No anxiety or depression Comment Review of Relevant I have reviewed the following items magalie (where applicable) has been applied. Labs Laboratory Tests Test 12/27/18 17:20 12/27/18 20:55 12/28/18 05:00 12/28/18 07:28 White Blood Count 13.5 x10^3/uL (4.0-11.0) 11.4 x10^3/uL (4.0-11.0) Red Blood Count 3.75 x10^6/uL (4.30-5.70) 3.94 x10^6/uL (4.30-5.70) Hemoglobin 11.1 g/dL (13.0-17.5) 11.7 g/dL (13.0-17.5) Hematocrit 34.1 % (39.0-53.0) 35.9 % (39.0-53.0) Mean Corpuscular Volume 91 fL (79-100) 91 fL (79-100) Mean Corpuscular Hemoglobin 30 pg (25-35) 30 pg (25-35) Mean Corpuscular Hemoglobin Concent 33 g/dL (31-37) 33 g/dL (31-37) Red Cell Distribution Width 13.8 % (11.5-14.5) 14.0 % (11.5-14.5) Platelet Count 505 x10^3/uL (140-400) 472 x10^3/uL (140-400) Neutrophils (%) (Auto) 77 % (31-73) 79 % (31-73) Lymphocytes (%) (Auto) 12 % (24-48) 11 % (24-48) Monocytes (%) (Auto) 9 % (0-9) 8 % (0-9) Eosinophils (%) (Auto) 1 % (0-3) 1 % (0-3) Basophils (%) (Auto) 1 % (0-3) 1 % (0-3) Neutrophils # (Auto) 10.4 x10^3uL (1.8-7.7) 9.0 x10^3uL (1.8-7.7) Lymphocytes # (Auto) 1.6 x10^3/uL (1.0-4.8) 1.3 x10^3/uL (1.0-4.8) Monocytes # (Auto) 1.2 x10^3/uL (0.0-1.1) 0.9 x10^3/uL (0.0-1.1) Eosinophils # (Auto) 0.1 x10^3/uL (0.0-0.7) 0.1 x10^3/uL (0.0-0.7) Basophils # (Auto) 0.1 x10^3/uL (0.0-0.2) 0.1 x10^3/uL (0.0-0.2) Sodium Level 139 mmol/L (136-145) 142 mmol/L (136-145) Potassium Level 4.3 mmol/L (3.5-5.1) 4.2 mmol/L (3.5-5.1) Chloride Level 100 mmol/L (98-107) 102 mmol/L (98-107) Carbon Dioxide Level 27 mmol/L (21-32) 27 mmol/L (21-32) Anion Gap 12 (6-14) 13 (6-14) Blood Urea Nitrogen 41 mg/dL (8-26) 38 mg/dL (8-26) Creatinine 1.9 mg/dL (0.7-1.3) 1.9 mg/dL (0.7-1.3) Estimated GFR (Cockcroft-Gault) 35.0 35.0 Glucose Level 189 mg/dL (70-99) 106 mg/dL (70-99) Calcium Level 9.2 mg/dL (8.5-10.1) 9.5 mg/dL (8.5-10.1) C-Reactive Protein, Quantitative 71.8 mg/L (0-3.3) Procalcitonin < 0.10 ng/mL (0.00-0.10) Glucose (Fingerstick) 142 mg/dL (70-99) 95 mg/dL (70-99) Erythrocyte Sedimentation Rate 120 (0-15) BUN/Creatinine Ratio 20 (6-20) Total Bilirubin 0.8 mg/dL (0.2-1.0) Aspartate Amino Transf (AST/SGOT) 20 U/L (15-37) Alanine Aminotransferase (ALT/SGPT) 18 U/L (16-63) Alkaline Phosphatase 129 U/L (46-116) Total Protein 7.9 g/dL (6.4-8.2) Albumin 2.5 g/dL (3.4-5.0) Albumin/Globulin Ratio 0.5 (1.0-1.7) Laboratory Tests Test 12/27/18 17:20 12/27/18 20:55 12/28/18 05:00 12/28/18 07:28 White Blood Count 13.5 x10^3/uL (4.0-11.0) 11.4 x10^3/uL (4.0-11.0) Red Blood Count 3.75 x10^6/uL (4.30-5.70) 3.94 x10^6/uL (4.30-5.70) Hemoglobin 11.1 g/dL (13.0-17.5) 11.7 g/dL (13.0-17.5) Hematocrit 34.1 % (39.0-53.0) 35.9 % (39.0-53.0) Mean Corpuscular Volume 91 fL (79-100) 91 fL (79-100) Mean Corpuscular Hemoglobin 30 pg (25-35) 30 pg (25-35) Mean Corpuscular Hemoglobin Concent 33 g/dL (31-37) 33 g/dL (31-37) Red Cell Distribution Width 13.8 % (11.5-14.5) 14.0 % (11.5-14.5) Platelet Count 505 x10^3/uL (140-400) 472 x10^3/uL (140-400) Neutrophils (%) (Auto) 77 % (31-73) 79 % (31-73) Lymphocytes (%) (Auto) 12 % (24-48) 11 % (24-48) Monocytes (%) (Auto) 9 % (0-9) 8 % (0-9) Eosinophils (%) (Auto) 1 % (0-3) 1 % (0-3) Basophils (%) (Auto) 1 % (0-3) 1 % (0-3) Neutrophils # (Auto) 10.4 x10^3uL (1.8-7.7) 9.0 x10^3uL (1.8-7.7) Lymphocytes # (Auto) 1.6 x10^3/uL (1.0-4.8) 1.3 x10^3/uL (1.0-4.8) Monocytes # (Auto) 1.2 x10^3/uL (0.0-1.1) 0.9 x10^3/uL (0.0-1.1) Eosinophils # (Auto) 0.1 x10^3/uL (0.0-0.7) 0.1 x10^3/uL (0.0-0.7) Basophils # (Auto) 0.1 x10^3/uL (0.0-0.2) 0.1 x10^3/uL (0.0-0.2) Sodium Level 139 mmol/L (136-145) 142 mmol/L (136-145) Potassium Level 4.3 mmol/L (3.5-5.1) 4.2 mmol/L (3.5-5.1) Chloride Level 100 mmol/L (98-107) 102 mmol/L (98-107) Carbon Dioxide Level 27 mmol/L (21-32) 27 mmol/L (21-32) Anion Gap 12 (6-14) 13 (6-14) Blood Urea Nitrogen 41 mg/dL (8-26) 38 mg/dL (8-26) Creatinine 1.9 mg/dL (0.7-1.3) 1.9 mg/dL (0.7-1.3) Estimated GFR (Cockcroft-Gault) 35.0 35.0 Glucose Level 189 mg/dL (70-99) 106 mg/dL (70-99) Calcium Level 9.2 mg/dL (8.5-10.1) 9.5 mg/dL (8.5-10.1) C-Reactive Protein, Quantitative 71.8 mg/L (0-3.3) Procalcitonin < 0.10 ng/mL (0.00-0.10) Glucose (Fingerstick) 142 mg/dL (70-99) 95 mg/dL (70-99) Erythrocyte Sedimentation Rate 120 (0-15) BUN/Creatinine Ratio 20 (6-20) Total Bilirubin 0.8 mg/dL (0.2-1.0) Aspartate Amino Transf (AST/SGOT) 20 U/L (15-37) Alanine Aminotransferase (ALT/SGPT) 18 U/L (16-63) Alkaline Phosphatase 129 U/L (46-116) Total Protein 7.9 g/dL (6.4-8.2) Albumin 2.5 g/dL (3.4-5.0) Albumin/Globulin Ratio 0.5 (1.0-1.7) Medications Current Medications Insulin Human Lispro (HumaLOG) 0-9 UNITS TIDWMEALS SQ Last administered on 12/27 18:33; Start 12/27/18 at 17:00; Stop 12/28/18 at 07:59; Status DC Dextrose (Dextrose 50%-Water Syringe) 12.5 gm PRN Q15MIN PRN IV SEE COMMENTS; Start 12/27/18 at 16:45 Atorvastatin Calcium (Lipitor) 40 mg HS PO Last administered on 12/27/18 21:18 ; Start 12/27/18 at 21:00 Metoprolol Succinate (Toprol Xl) 25 mg DAILY PO Last administered on 12/28/18 09:07; Start 12/28/18 at 09:00 Niacin (Slo-Niacin) 500 mg HS PO Last administered on 12/27/18 21:18; Start at 21:00 Vitamin D (Vitamin D3) 5,000 unit DAILY PO Last administered on 12/28/18 09:06 ; Start 12/28/18 at 09:00 Non-Formulary Medication (Dulaglutide (Trulicity)) 1.5 mg WEEKLY SQ ; Start 01/03 at 09:00; Status UNV Glimepiride (Amaryl) 4 mg BIDAC PO Last administered on 12/28/18 09:07; Start 12/27/18 at 18:30 Hydrochlorothiazide (Hydrodiuril) 25 mg DAILY PO Last administered on 09:06; Start 12/28/18 at 09:00 Insulin Glargine (Lantus) 32 units QHS SQ Last administered on 12/27/18 21:24 ; Start 12/27/18 at 21:00 Levothyroxine Sodium (Synthroid) 50 mcg DAILY06 PO Last administered on 05:41; Start 12/28/18 at 06:00 Insulin Human Lispro (HumaLOG) 0-9 UNITS TIDACHC SQ ; Start 12/28/18 at 11:30 Labetalol HCl (Normodyne Iv Push) 10 mg PRN Q2HR PRN IVP HYPERTENSION, SEE COMMENTS; Start 12/28/18 at 08:00 Acetaminophen (Tylenol) 500 mg PRN Q6HRS PRN PO MILD PAIN / TEMP; Start at 08:00 Acetaminophen/ Codeine Phosphate (Tylenol #3) 1 tab PRN Q6HRS PRN PO MODERATE PAIN; Start 12/28/18 at 08:00 Ondansetron HCl (Zofran) 4 mg PRN Q6HRS PRN IV NAUSEA/VOMITING; Start 12/28/18 at 08:00 Ondansetron HCl (Zofran Odt) 4 mg PRN Q6HRS PRN PO NAUSEA/VOMITING; Start 12/28 at 08:00 Active Scripts Active Reported Cipro (Ciprofloxacin Hcl) 500 Mg Tablet 1 Tab PO BID Niaspan (Niacin) 500 Mg Tab.er.24h 500 Mg PO HS Hydrochlorothiazide Tablet (Hydrochlorothiazide) 12.5 Mg Tablet 25 Mg PO DAILY Metoprolol Succinate ( Xl ) (Metoprolol Succinate) 25 Mg Tab.er.24h 25 Mg PO DAILY Lipitor (Atorvastatin Calcium) 40 Mg Tablet 40 Mg PO HS Trulicity (Dulaglutide) 1.5 Mg/0.5 Ml Pen.injctr 1.5 Mg SQ WEEKLY [place] Solostar (Insulin Glargine,Hum.rec.anlog) 300 Unit/1 Ml Insuln.pen 40 Unit SQ HS Aspirin 81 Mg Tab.chew 81 Mg PO BID Glimepiride 4 Mg Tablet 4 Mg PO BIDAC Synthroid (Levothyroxine Sodium) 50 Mcg Tablet 50 Mcg PO DAILYAC Vitamin D3 (Cholecalciferol (Vitamin D3)) 5,000 Unit Tablet 5,000 Unit PO DAILY Vitals/I & O Vital Sign - Last 24 Hours 12/27/18 12/27/18 12/27/18 12/27/18 15:00 16:03 19:00 19:29 Temp 98.8 97.8 98.8 97.8 Pulse 88 91 Resp 18 18 B/P (MAP) 130/54 (79) 142/67 (92) Pulse Ox 93 93 O2 Delivery Room Air Room Air Room Air Room Air 2/2412/28/18 12/28/18 12/28/18 23:00 03:00 07:00 09:07 Temp 97.5 98.0 97.8 97.5 98.0 97.8 Pulse 93 86 90 90 Resp 18 18 18 B/P (MAP) 116/67 (83) 157/50 (85) 108/49 (68) 108/49 Pulse Ox 92 92 95 O2 Delivery Room Air Room Air Room Air Intake and Output 12/27/18 12/27/18 12/28/18 14:59 22:59 06:59 Intake Total 250 ml Balance 250 ml SALLY ALEJANDRA MD Dec 28, 2018 09:44
[2018-12-28 11:00] VITALS: BP 132/70
--- NOTE | 2018-12-28 11:19 | RAD ---
DUPLEX SONOGRAPHY OF THE PERIPHERAL ARTERIAL SYSTEM OF [ ] Clinical indications: Right foot black toes i.e. necrosis. Left foot toe ulcer. Findings: Duplex sonography of the peripheral arterial system of both lower extremities including alcantar scale and color flow and spectral waveform analysis was performed. On the right side, monophasic waveform is seen within the anterior tibial artery. On the left side, monophasic waveform is seen within the proximal tibial artery. The distal left posterior tibial artery is not visualized. Biphasic waveforms are seen within the femoral popliteal segments bilaterally. No flow-limiting stenosis is identified within the femoral popliteal segment on either side. The measurements were performed using the NASCET criteria. Peak systolic flow velocities are as follows: Right leg: common femoral artery- 111 cm/sec, profunda femoral artery -122 cm/sec, proximal superficial femoral artery -92 cm/sec, mid superficial femoral artery -135 cm/sec, distal superficial femoral artery- 150 cm/sec, popliteal artery -148 cm/sec, proximal posterior tibial artery- 147 cm/sec, distal posterior tibial artery- 124 cm/sec, peroneal artery- 127 cm/sec, anterior tibial artery- 56 cm/sec, dorsalis pedis artery -41 cm/sec. Left leg: common femoral artery- 81 cm/sec, profunda femoral artery -52 cm/sec, proximal superficial femoral artery- 114cm/sec, mid superficial femoral artery- 103 cm/sec, distal superficial femoral artery- 123 cm/sec, popliteal artery -93 cm/sec, proximal posterior tibial artery -90 cm/sec, distal posterior tibial artery- not visualized, peroneal artery -113 cm/sec, anterior tibial artery -70 cm/sec, dorsalis pedis artery- 28 cm/sec. Impression: Distal left posterior tibial artery is not visualized and therefore may be occluded. Monophasic waveform is seen within the right anterior tibial artery indicative of a significant more distal stenosis. However, flow is evident within the right dorsalis pedis artery. No occlusive disease or flow-limiting stenosis is seen within the femoral popliteal segment on either side. Electronically signed by: Lamont Mcpherson MD (12/28/2018 11:16 AM) [facility]
--- NOTE | 2018-12-28 11:27 | RAD ---
Three-view right foot study Clinical indications: Preoperative evaluation. History of metallic plates. FINDINGS: There is cortical disruption of the lateral aspect of the proximal metaphysis of the fifth proximal phalanx seen in only one view. This may represent a nondisplaced fracture. No lytic process is seen. No dislocation is seen. Metallic surgical hardware is seen within the distal tibia including the medial malleolus and the distal fibula. There is a moderate-sized plantar spur of the calcaneus. Arterial calcified atheromatous disease is seen which may be noted with diabetes. IMPRESSION: Possible fracture of the fifth proximal phalanx. Clinical correlation is recommended. No lytic process. Electronically signed by: Lamont Mcpherson MD (12/28/2018 11:24 AM) [facility]
[2018-12-28] MEDS: INSULIN LISPRO 300 UNITS/3 ML INSULN.PEN. SQ SCH ×3 (11:30→21:00)
[2018-12-28] MEDS ORDERED: IV NORMAL SALINE 1000ML BAG 1,000 ML IV ONE (14:30)
[2018-12-28 15:00] VITALS: BP 136/62
[2018-12-28 15:12] LABS: PROTHROMBIN TIME PATIENT 15.2 SEC (11.7-14.0)
--- NOTE | 2018-12-28 16:15 | NUR ---
wound care patient seen per wound care consult. see wound assessment. patient has DFU's to all 5 toes on the right foot that are blackened with bright red periwound, no drainage noted from the toes. patient also has a DFU to the left plantar great toe the wound was cleaned, measured and redressed at this time with Iodoflex, and a Telfa dressing. patient assessed from head to toe and no other wounds noted at this time. patient has some some calloused areas to bilateral buttocks, recommendations of Calazime cream, prn. patient educated about pressure ulcer prevention. wound care team will continue to f/u.
[2018-12-28 19:00] VITALS: BP 135/53
[2018-12-28] MEDS: INSULIN GLARGINE 300 UNITS/3 ML INSULN.PEN. SQ SCH (21:00)
[2018-12-28] MEDS: NIACIN ER 500 MG TABLET.ER PO SCH (22:13)
[2018-12-28] MEDS: ATORVASTATIN CALCIUM 40 MG TABLET. PO SCH (22:13)
[2018-12-28 22:56] VITALS: BP 142/54
[2018-12-28 23:13] LABS: HEMOGLOBIN A1C 8.4 % (4.8-5.6)
--- NOTE | 2018-12-28 23:42 | NUR ---
at 2100 cap blood sugar 61, treated per protocol, re-checked at 2200, blood sugar 83, pt denies discomfort, Dr Bandar Cotter notified made new order to hold insulin tonight.
[2018-12-29 02:49] VITALS: BP 119/55
[2018-12-29 07:00] VITALS: BP 147/69
[2018-12-29] MEDS: LEVOTHYROXINE 50 MCG TABLET PO SCH (07:01)
[2018-12-29] MEDS: GLIMEPIRIDE 2 MG TABLET. PO SCH ×2 (07:24→16:59)
[2018-12-29] MEDS: INSULIN LISPRO 300 UNITS/3 ML INSULN.PEN. SQ SCH ×4 (07:30→21:00)
[2018-12-29] MEDS: METOPROLOL SUCC 24HR ER 25 MG TAB.ER.24H. PO SCH (08:50)
[2018-12-29] MEDS: CHOLECALCIFEROL (VITAMIN D3) 5,000 UNIT CAPSULE PO SCH (08:52)
[2018-12-29] MEDS: hydroCHLOROthiazide 25 MG TABLET PO SCH (08:52)
[2018-12-29 11:00] VITALS: BP 145/63
[2018-12-29] MEDS ORDERED: IV NORMAL SALINE 500ML BAG 500 ML IV ONE (11:00)
--- NOTE | 2018-12-29 11:43 | PDOC ---
Provider Note Provider Note no complaints AF VSS awake and alert right forefoot with dry gangrene of all toes, erythema of the forefoot, no palpable pulses left 1st toe with small clean ulcer A/P 73 year old male with right leg peripheral artery disease and gangrene of all toes with cellulitis of the foot, left 1st toe ulcer with mild peripheral artery disease on duplex scan - plan angiogram of the right leg with possible intervention tomorrow, will angio the left leg if low amount of contrast is used - will need right transmetatarsal amputation for the gangrene, will schedule on or friday pending angio results - start antibiotics and consult ID - start daily aspirin - continue wound care to the left 1st toe ulcer BRADLEY HENDRICKS MD Dec 29, 2018 11:43
[2018-12-29] MEDS ORDERED: PIP/TAZO PER PHARMACY MC PRN (11:45)
[2018-12-29] MEDS: ASPIRIN ENTERIC COATED 81 MG TABLET.DR. PO SCH (12:11)
[2018-12-29] MEDS: PIPERACILLIN/TAZOBACTAM 3.375 GM in IV NORMAL SALINE 50ML 50 ML IV SCH ×2 (12:11→17:55)
--- NOTE | 2018-12-29 12:40 | NUR ---
Patient request that his flu vaccine be given at discharge.
[2018-12-29 15:00] VITALS: BP 106/56
[2018-12-29 19:00] VITALS: BP 119/38
--- NOTE | 2018-12-29 19:45 | PDOC ---
PROGRESS NOTES Chief Complaint Chief Complaint dry gangrene, ischemic toes, peripheral vascular disease and poss osteo will prob need amputation, DM2 prior CVA, vasculopathy, his family had stopped his aspirin and substituted tylenol obese, BMI 33 History of Present Illness History of Present Illness Right foot inspected, all 4 toes gangrenous Minimal sensation on that extremity Surgeon has seen the patient -vascular surgery consulted recommendations greatly appreciated Blood sugars okay, unknown hemoglobin A1c Patient resting comfortably in bed PLAN: Scooter studies as per [facility] w[facility] consultant Continue current insulin regimen seems to be working Continue current antibiotics with Zyvox and Zosyn Follow Hemoglobin A1c Blood pressure high, add labetalol when necessary Avoid Nephrotoxins-creatinine 1.9 in this diabetic with PVD Vitals Vitals Vital Signs Date Time Temp Pulse Resp B/P (MAP) Pulse Ox O2 Delivery O2 Flow Rate FiO2 12/29/18 15:00 97.8 83 18 106/56 (73) 97 Room Air 97.8 Physical Exam General: Alert, Oriented X3, Cooperative, No acute distress Heart: Regular rate, Normal S1, Normal S2, No murmurs Abdomen: Soft, No tenderness Extremities: No clubbing, No cyanosis, Other (Right foot edema up to mid armijo) Skin: Other (Left foot with hard calloused ulcer to left great toe medial plantar surface. Right foot with dry, hard eschar to all 5 toes, more prominent on plantar surface. There is no drainage throughout. The right foot had erythema and edema extending just above ankle. ) Labs LABS Laboratory Tests Test 12/28/18 21:07 12/28/18 22:14 12/29/18 07:52 12/29/18 11:02 Glucose (Fingerstick) 61 mg/dL (70-99) 83 mg/dL (70-99) 126 mg/dL (70-99) 157 mg/dL (70-99) Test 12/29/18 16:46 Glucose (Fingerstick) 178 mg/dL (70-99) Review of Systems Review of Systems Pertinent as per history of present illness otherwise 14 point review of system is negative Comment Review of Relevant I have reviewed the following items magalie (where applicable) has been applied. Labs Laboratory Tests Test 12/27/18 20:55 12/28/18 05:00 12/28/18 07:28 12/28/18 11:31 Glucose (Fingerstick) 142 mg/dL (70-99) 95 mg/dL (70-99) 104 mg/dL (70-99) White Blood Count 11.4 x10^3/uL (4.0-11.0) Red Blood Count 3.94 x10^6/uL (4.30-5.70) Hemoglobin 11.7 g/dL (13.0-17.5) Hematocrit 35.9 % (39.0-53.0) Mean Corpuscular Volume 91 fL (79-100) Mean Corpuscular Hemoglobin 30 pg (25-35) Mean Corpuscular Hemoglobin Concent 33 g/dL (31-37) Red Cell Distribution Width 14.0 % (11.5-14.5) Platelet Count 472 x10^3/uL (140-400) Neutrophils (%) (Auto) 79 % (31-73) Lymphocytes (%) (Auto) 11 % (24-48) Monocytes (%) (Auto) 8 % (0-9) Eosinophils (%) (Auto) 1 % (0-3) Basophils (%) (Auto) 1 % (0-3) Neutrophils # (Auto) 9.0 x10^3uL (1.8-7.7) Lymphocytes # (Auto) 1.3 x10^3/uL (1.0-4.8) Monocytes # (Auto) 0.9 x10^3/uL (0.0-1.1) Eosinophils # (Auto) 0.1 x10^3/uL (0.0-0.7) Basophils # (Auto) 0.1 x10^3/uL (0.0-0.2) Erythrocyte Sedimentation Rate 120 (0-15) Sodium Level 142 mmol/L (136-145) Potassium Level 4.2 mmol/L (3.5-5.1) Chloride Level 102 mmol/L (98-107) Carbon Dioxide Level 27 mmol/L (21-32) Anion Gap 13 (6-14) Blood Urea Nitrogen 38 mg/dL (8-26) Creatinine 1.9 mg/dL (0.7-1.3) Estimated GFR (Cockcroft-Gault) 35.0 BUN/Creatinine Ratio 20 (6-20) Glucose Level 106 mg/dL (70-99) Hemoglobin A1c 8.4 % (4.8-5.6) Calcium Level 9.5 mg/dL (8.5-10.1) Total Bilirubin 0.8 mg/dL (0.2-1.0) Aspartate Amino Transf (AST/SGOT) 20 U/L (15-37) Alanine Aminotransferase (ALT/SGPT) 18 U/L (16-63) Alkaline Phosphatase 129 U/L (46-116) Total Protein 7.9 g/dL (6.4-8.2) Albumin 2.5 g/dL (3.4-5.0) Albumin/Globulin Ratio 0.5 (1.0-1.7) Test 12/28/18 15:00 12/28/18 16:42 12/28/18 21:07 12/28/18 22:14 Prothrombin Time 15.2 SEC (11.7-14.0) Prothromb Time International Ratio 1.2 (0.8-1.1) Glucose (Fingerstick) 152 mg/dL (70-99) 61 mg/dL (70-99) 83 mg/dL (70-99) Test 12/29/18 07:52 12/29/18 11:02 12/29/18 16:46 Glucose (Fingerstick) 126 mg/dL (70-99) 157 mg/dL (70-99) 178 mg/dL (70-99) Laboratory Tests Test 12/28/18 21:07 12/28/18 22:14 12/29/18 07:52 12/29/18 11:02 Glucose (Fingerstick) 61 mg/dL (70-99) 83 mg/dL (70-99) 126 mg/dL (70-99) 157 mg/dL (70-99) Test 12/29/18 16:46 Glucose (Fingerstick) 178 mg/dL (70-99) Medications Current Medications Insulin Human Lispro (HumaLOG) 0-9 UNITS TIDWMEALS SQ Last administered on 12/27at 18:33; Start 12/27/18 at 17:00; Stop 12/28/18 at 07:59; Status DC Dextrose (Dextrose 50%-Water Syringe) 12.5 gm PRN Q15MIN PRN IV SEE COMMENTS; Start 12/27/18 at 16:45 Atorvastatin Calcium (Lipitor) 40 mg HS PO Last administered on 12/28/18 22:13 ; Start 12/27/18 at 21:00 Metoprolol Succinate (Toprol Xl) 25 mg DAILY PO Last administered on 12/29/18at 08:50; Start 12/28/18 at 09:00 Niacin (Slo-Niacin) 500 mg HS PO Last administered on 12/28/18 22:13; Start at 21:00 Vitamin D (Vitamin D3) 5,000 unit DAILY PO Last administered on 12/28/18at 09:06 ; Start 12/28/18 at 09:00 Non-Formulary Medication (Dulaglutide (Trulicity)) 1.5 mg WEEKLY SQ ; Start 01/03 at 09:00; Status UNV Glimepiride (Amaryl) 4 mg BIDAC PO Last administered on 12/29/18at 16:59; Start 12/27/18 at 18:30 Hydrochlorothiazide (Hydrodiuril) 25 mg DAILY PO Last administered on 09:06; Start 12/28/18 at 09:00 Insulin Glargine (Lantus) 32 units QHS SQ Last administered on 12/27/18 21:24 ; Start 12/27/18 at 21:00 Levothyroxine Sodium (Synthroid) 50 mcg DAILY06 PO Last administered on at 07:01; Start 12/28/18 at 06:00 Insulin Human Lispro (HumaLOG) 0-9 UNITS TIDACHC SQ Last administered on at 17:02; Start 12/28/18 at 11:30 Labetalol HCl (Normodyne Iv Push) 10 mg PRN Q2HR PRN IVP HYPERTENSION, SEE COMMENTS; Start 12/28/18 at 08:00 Acetaminophen (Tylenol) 500 mg PRN Q6HRS PRN PO MILD PAIN / TEMP; Start at 08:00 Acetaminophen/ Codeine Phosphate (Tylenol #3) 1 tab PRN Q6HRS PRN PO MODERATE PAIN; Start 12/28/18 at 08:00 Ondansetron HCl (Zofran) 4 mg PRN Q6HRS PRN IV NAUSEA/VOMITING; Start 12/28/18 at 08:00 Ondansetron HCl (Zofran Odt) 4 mg PRN Q6HRS PRN PO NAUSEA/VOMITING; Start 12/28 at 08:00 Sodium Chloride 1,000 ml @ 75 mls/hr 1X ONCE IV Last administered on at 15:23; Start 12/28/18 at 14:30; Stop 12/29/18 at 03:49; Status DC Sodium Chloride 500 ml @ 250 mls/hr 1X ONCE IV ; Start 12/29/18 at 11:00; Stop 12/29/18 at 12:51; Status DC Influenza Virus Vaccine (Afluria Trivalent [id number] Syringe) 0.5 ml ONCE ONCE VAX IM ; Start 12/29/18 at 10:00; Stop 12/29/18 at 10:01; Status DC Piperacillin Sod/ Tazobactam Sod (Zosyn Per Pharmacy) 1 each PRN DAILY PRN MC SEE COMMENTS; Start 12/29/18 at 11:45 Aspirin (Ecotrin) 81 mg DAILYWBKFT PO Last administered on 12/29/18at 12:11; Start 12/29/18 at 12:00 Piperacillin Sod/ Tazobactam Sod 3.375 gm/Sodium Chloride 50 ml @ 100 mls/hr Q6HRS IV Last administered on 12/29/18at 17:55; Start 12/29/18 at 12:00 Sodium Chloride 1,000 ml @ 75 mls/hr 1X ONCE IV ; Start 12/30/18 at 00:00; Stop 12/30/18 at 13:19 Sodium Chloride 500 ml @ 250 mls/hr 1X ONCE IV ; Start 12/30/18 at 09:30; Stop 12/30/18 at 11:29 Lactobacillus Rhamnosus (Culturelle) 1 cap BID PO ; Start 12/29/18 at 21:00 Multivitamins (Thera M Plus) 1 tab DAILY PO ; Start 12/30/18 at 09:00 Linezolid/Dextrose 300 ml @ 300 mls/hr Q12HR IV Last administered on at 15:50; Start 12/29/18 at 15:00 Active Scripts Active Reported Cipro (Ciprofloxacin Hcl) 500 Mg Tablet 1 Tab PO BID Niaspan (Niacin) 500 Mg Tab.er.24h 500 Mg PO HS Hydrochlorothiazide Tablet (Hydrochlorothiazide) 12.5 Mg Tablet 25 Mg PO DAILY Metoprolol Succinate ( Xl ) (Metoprolol Succinate) 25 Mg Tab.er.24h 25 Mg PO DAILY Lipitor (Atorvastatin Calcium) 40 Mg Tablet 40 Mg PO HS Trulicity (Dulaglutide) 1.5 Mg/0.5 Ml Pen.injctr 1.5 Mg SQ WEEKLY [place] Solostar (Insulin Glargine,Hum.rec.anlog) 300 Unit/1 Ml Insuln.pen 40 Unit SQ HS Aspirin 81 Mg Tab.chew 81 Mg PO BID Glimepiride 4 Mg Tablet 4 Mg PO BIDAC Synthroid (Levothyroxine Sodium) 50 Mcg Tablet 50 Mcg PO DAILYAC Vitamin D3 (Cholecalciferol (Vitamin D3)) 5,000 Unit Tablet 5,000 Unit PO DAILY Vitals/I & O Vital Sign - Last 24 Hours 12/28/18 12/28/18 12/29/18 12/29/18 20:00 22:56 02:49 07:00 Temp 98.9 98.7 97.9 98.9 98.7 97.9 Pulse 91 93 80 Resp 16 18 18 B/P (MAP) 142/54 (83) 119/55 (76) 147/69 (95) Pulse Ox 98 97 97 O2 Delivery Room Air Room Air Room Air Room Air 12/29/18 12/29/18 12/29/18 12/29/18 08:00 08:50 11:00 15:00 Temp 98.3 97.8 98.3 97.8 Pulse 80 88 83 Resp 18 18 B/P (MAP) 147/69 145/63 (90) 106/56 (73) Pulse Ox 96 97 O2 Delivery Room Air Room Air Room Air MARY CARMEN DE GUZMAN MD Dec 29, 2018 19:45
[2018-12-29] MEDS: LACTOBACILLUS RHAMNOSUS GG 1 CAPSULE. PO SCH (19:59)
[2018-12-29] MEDS: NIACIN ER 500 MG TABLET.ER PO SCH (19:59)
[2018-12-29] MEDS: ATORVASTATIN CALCIUM 40 MG TABLET. PO SCH (19:59)
[2018-12-29] MEDS: INSULIN GLARGINE 300 UNITS/3 ML INSULN.PEN. SQ SCH (21:00)
[2018-12-29 22:35] VITALS: BP 134/52
[2018-12-30] VITALS (14 sets, daily range): BP systolic 85–150; BP diastolic 34–83
[2018-12-30] MEDS ORDERED: IV NORMAL SALINE 1000ML BAG 1,000 ML IV ONE
[2018-12-30] MEDS: PIPERACILLIN/TAZOBACTAM 3.375 GM in IV NORMAL SALINE 50ML 50 ML IV SCH ×5 (01:12→23:56)
--- NOTE | 2018-12-30 01:41 | CONS ---
DATE OF CONSULTATION: 12/29/2018 REQUESTING PHYSICIAN: Dr. Garrison. REASON FOR CONSULTATION: Foot cellulitis and gangrene. HISTORY OF PRESENT ILLNESS: This is a 73-year-old gentleman, with history of diabetes, who came in with right foot gangrene. The patient has also redness of the foot, leukocytosis and gangrenous, all the toes. The patient is supposed to have an angiogram today and subsequently, he is going need a TMA. His sed rate is 120. The patient has been put on Zosyn and consult has been requested. The patient denies any nausea, vomiting, diarrhea. Denies any fever, denies any trauma. Denies any other complaints. PAST MEDICAL HISTORY: Positive for diabetes mellitus, hypertension, CVA, coronary artery disease with stenting done. SOCIAL HISTORY: Remote history positive for smoking and alcohol use, but now, he quit. ALLERGIES: No known drug allergies. CURRENT MEDICATIONS: Reviewed. REVIEW OF SYSTEMS: As per HPI. All other systems reviewed are negative. PHYSICAL EXAMINATION: GENERAL: Alert, oriented gentleman, not in distress. VITAL SIGNS: Stable, afebrile. HEENT: NAD. NECK: Supple, no JVP, no lymphadenopathy. LUNGS: Clear. HEART: S1, S2 regular. ABDOMEN: Benign. EXTREMITIES: Left lower extremity is unremarkable. Right lower extremity has extensive gangrene of all the toes with crusted skin with some drainage and smell to it. There is erythema of the foot, and pulses are not palpable. NEUROLOGIC: Alert, awake and appropriate. No focal neurologic deficit. LABORATORY DATA: White count is 13.5. Sed rate 120. BUN and creatinine is 41 and 1.9. Foot x-ray is showing fracture of the fifth proximal phalanx. Duplex arterial scan showed distal left posterior tibial artery not visualized and likely occluded, monophasic waveform, right anterior tibial indicative of significant distal stenosis. IMPRESSION: 1. Right foot cellulitis. 2. Right foot all toes gangrene. 3. Leukocytosis. 4. Diabetes. 5. Coronary artery disease. 6. Renal insufficiency. RECOMMENDATIONS: Continue Zosyn, add Zyvox. Leg elevation, supportive care. Angiogram and TMA is pending. Thank you very much, Dr. Garrison, for giving me the opportunity to participate in this patient's care. JUAN DAVID CALLAHAN MD DR: FLAVIO/marcial JOB#: [id number] / [id number]
[2018-12-30 04:22] LABS: HEMATOCRIT 36.4 % (39.0-53.0); HEMOGLOBIN 11.9 g/dL (13.0-17.5); RED BLOOD COUNT 3.99 x10^6/uL (4.30-5.70); RED CELL DISTRIBUTION WIDTH 13.7 % (11.5-14.5); WHITE BLOOD COUNT 11.9 x10^3/uL (4.0-11.0)
[2018-12-30 05:36] LABS: CALCIUM 9.4 mg/dL (8.5-10.1); CREATININE 2.1 mg/dL (0.7-1.3); GFR 31.2; POTASSIUM 3.6 mmol/L (3.5-5.1)
[2018-12-30] MEDS: LEVOTHYROXINE 50 MCG TABLET PO SCH (06:00)
[2018-12-30] MEDS: INSULIN LISPRO 300 UNITS/3 ML INSULN.PEN. SQ SCH ×4 (07:30→20:53)
[2018-12-30] MEDS: GLIMEPIRIDE 2 MG TABLET. PO SCH ×2 (07:30→17:08)
[2018-12-30] MEDS: ASPIRIN ENTERIC COATED 81 MG TABLET.DR. PO SCH (07:36)
[2018-12-30] MEDS ORDERED: HEPARIN for IV BOLUS 10,000 UNIT/10 ML VIAL. ONE (08:07)
[2018-12-30] MEDS ORDERED: LIDOCAINE 1% Multi-Dose 20 ML VIAL. ONE ×2 (08:07→10:06)
[2018-12-30] MEDS ORDERED: fentaNYL PF VIAL 100 MCG/2 ML VIAL ONE (08:07)
[2018-12-30] MEDS ORDERED: HEPARIN for ARTERIAL LINE 1,500 ML ONE (08:07)
[2018-12-30] MEDS ORDERED: MIDAZOLAM HCL/PF 5 MG/5 ML VIAL. ONE (08:07)
[2018-12-30] MEDS ORDERED: IODIXANOL 320 MG/ML 100 ML VIAL. ONE ×2 (08:07→09:42)
--- NOTE | 2018-12-30 08:15 | PDOC ---
Infectious Disease Note Subjective Subjective feeling good ROS ROS no n/v/d/sob/fever Vital Sign Vital Signs Vital Signs Date Time Temp Pulse Resp B/P (MAP) Pulse Ox O2 Delivery O2 Flow Rate FiO2 12/30/18 03:00 98.6 75 18 114/53 (73) 97 Room Air 98.6 Physical Exam PHYSICAL EXAM GENERAL: Alert, oriented gentleman, not in distress. VITAL SIGNS: Stable, afebrile. HEENT: NAD. NECK: Supple, no JVP, no lymphadenopathy. LUNGS: Clear. HEART: S1, S2 regular. ABDOMEN: Benign. EXTREMITIES: Left lower extremity is unremarkable. Right lower extremity has extensive gangrene of all the toes with crusted skin with some drainage and smell to it. There is erythema of the foot, and pulses are not palpable. NEUROLOGIC: Alert, awake and appropriate. No focal neurologic deficit. Labs Lab Laboratory Tests Test 12/29/18 11:02 12/29/18 16:46 12/29/18 20:33 12/30/18 03:05 Glucose (Fingerstick) 157 mg/dL (70-99) 178 mg/dL (70-99) 92 mg/dL (70-99) White Blood Count 11.9 x10^3/uL (4.0-11.0) Red Blood Count 3.99 x10^6/uL (4.30-5.70) Hemoglobin 11.9 g/dL (13.0-17.5) Hematocrit 36.4 % (39.0-53.0) Mean Corpuscular Volume 91 fL (79-100) Mean Corpuscular Hemoglobin 30 pg (25-35) Mean Corpuscular Hemoglobin Concent 33 g/dL (31-37) Red Cell Distribution Width 13.7 % (11.5-14.5) Platelet Count 505 x10^3/uL (140-400) Sodium Level 141 mmol/L (136-145) Potassium Level 3.6 mmol/L (3.5-5.1) Chloride Level 101 mmol/L (98-107) Carbon Dioxide Level 28 mmol/L (21-32) Anion Gap 12 (6-14) Blood Urea Nitrogen 31 mg/dL (8-26) Creatinine 2.1 mg/dL (0.7-1.3) Estimated GFR (Cockcroft-Gault) 31.2 Glucose Level 136 mg/dL (70-99) Calcium Level 9.4 mg/dL (8.5-10.1) Test 12/30/18 07:27 Glucose (Fingerstick) 114 mg/dL (70-99) Objective Assessment 1. Right foot cellulitis. 2. Right foot all toes gangrene. 3. Leukocytosis. 4. Diabetes. 5. Coronary artery disease. 6. Renal insufficiency. Plan Plan of Care angio today TMA later cont antibiotics cont supportive care JUAN DAVID CALLAHAN MD Dec 30, 2018 08:15
[2018-12-30] MEDS: METOPROLOL SUCC 24HR ER 25 MG TAB.ER.24H. PO SCH (08:25)
[2018-12-30] MEDS: MULTIVITAMIN with MINERAL TABLET. PO SCH (08:29)
[2018-12-30] MEDS: hydroCHLOROthiazide 25 MG TABLET PO SCH (08:29)
[2018-12-30] MEDS: LACTOBACILLUS RHAMNOSUS GG 1 CAPSULE. PO SCH ×2 (08:29→20:53)
[2018-12-30] MEDS: CHOLECALCIFEROL (VITAMIN D3) 5,000 UNIT CAPSULE PO SCH (08:30)
[2018-12-30] MEDS ORDERED: fentaNYL PF VIAL 100 MCG/2 ML VIAL IV ONE (09:15)
[2018-12-30] MEDS ORDERED: MIDAZOLAM HCL/PF 5 MG/5 ML VIAL. IV ONE (09:15)
[2018-12-30] MEDS ORDERED: LIDOCAINE 1% Multi-Dose 20 ML VIAL. INJ ONE (09:15)
[2018-12-30] MEDS ORDERED: IODIXANOL 320 MG/ML 100 ML VIAL. IART ONE (09:15)
[2018-12-30] MEDS ORDERED: HEPARIN for IV BOLUS 10,000 UNIT/10 ML VIAL. IV ONE (09:16)
[2018-12-30] MEDS ORDERED: IV NORMAL SALINE 500ML BAG 500 ML IV ONE (09:30)
[2018-12-30] MEDS ORDERED: NITROGLYCERIN 200 MCG/2 ML SYRINGE FOR CATH/VASC LAB. IART ONE (10:15)
--- NOTE | 2018-12-30 10:34 | NUR ---
SW following, discussed with RN. Pt is from home with sister and uses a walker at home. RN advised no SW needs at this time. SW will continue to follow.
[2018-12-30] MEDS ORDERED: PROTAMINE 50 MG/5 ML VIAL. IV ONE ×2 (10:39→10:48)
--- NOTE | 2018-12-30 11:28 | PDOC4 ---
OPERATIVE NOTE Date: Date: Dec 30, 2018 Pre-Op Diagnosis: Atherosclerosis of [place] arteries of right lower extremity with gangrene of the toes (other part of the foot) Post-Op Diagnosis: same as above Procedure Performed: 1) Ultrasound guided access right COMPUTER ARCHITECT in an antegrade approach 2) right leg runoff S&I [id number] (no previous contrast imaging of the leg) 3) Right peroneal artery angioplasty (CPT 28099) 4) placement of closure device right COMPUTER ARCHITECT Surgeon: hAsan Rodriguez MD Anesthesia Type: Conscious sedation under RN and physician supervision Fentanyl 100 g Versed 4 mg 133 minutes total sedationinitial 15 minutes 1, subsequent 15 minutes x 8 Blood Loss: 10cc Specimans Obtained: none Findings: 1) right common and superficial femoral and popliteal arteries are widely patent 2) right PT is small but gives in-line flow to the foot 3) right peroneal occludes in the distal segment and then reconstitutes via collaterals --> recanalized with 2.5 mm balloon angioplasty with minimal residual stenosis 4) right JULIO CESAR occludes shortly after the origin then reconstitues as a very small dorsalis pedis in the distal foot -- was unable to cross this Complications: none Operative Note: The patient was escorted to the Ecclesiastical Worker and placed supine on the table. The bilateral groins were prepped and draped in usual sterile fashion. An appropriate timeout was performed. With appropriate monitoring devices in place , sedation was induced with intravenous fentanyl and Versed under M.D. and RN supervision. Attention was directed to the right groin where the common femoral artery was marked or the femoral head using fluoroscopy and then examined with ultrasound. On ultrasound the vessels found to be widely patent with good flow and imaging vessels taken and saved for the medical record. Number real-time ultrasound guidance local anesthetic was injected in the right groin and the right common femoral artery was accessed in an antegrade fashion using a micropuncture needle. This was used to pass a Inderjit puncture wire into the SFA under fluoroscopic guidance and exchanged the needle for a micropuncture sheath which backbled easily. This was used to introduce a long J- wire into the right SFA and exchanged the micropuncture sheath for a 5 Tunisian 10cm sheath which was aspirated and flushed without difficulty. The patient was given intravenous heparin. This sheath was used to perform carbon dioxide angiography of the SFA and tibial vessels. I introduce a Cosme wire and passed angled glide catheter over this. I used this to perform selective tibial and grams using carbon dioxide and then dilute 50% contrast. I decided to try to intervene of the tibial vessels for limb salvage. I advanced supra core wire into the popliteal artery under fluoroscopic guidance , removed the catheter, and used this wire to exchange the 5 Tunisian sheath for a 6 Tunisian 45 cm trauma destination sheath passed in antegrade fashion to the popliteal artery under fluoroscopic guidance. I used this to introduce an angled catheter, a 0.018 Glidewire advantage, and a quick cross catheter and used this to cross the peroneal artery WEALTH MANAGEMENT CONSULTANT and reenter the true lumen distally. I treated this with balloon angioplasty with a 2.5 x 150 Terumo angioplasty balloon with good results. Follow-up angiogram showed the peroneal artery was now widely patent with good collaterals into the foot with no residual stenosis and no dissection or complication. I pulled the catheter back and used the angled catheter and the Glidewire advantage and in the 18 to select to the anterior tibial artery origin and try to cross the JULIO CESAR long segment occlusion. I was unable to do so. I directed attention to the right foot which was prepped and draped in usual sterile fashion and attempted retrograde pedal access however this was a small vessel circumferentially calcified with perhaps a 1 mm lumen and I was unable to successfully do so. Antrum showed in-line flow to the foot via the posterior tibial and improved flow to the 4 foot via the peroneal wounds collaterals. I felt that this should be adequate for healing is transmetatarsal amputation. 30 mg of protamine was given to reverse the heparin. The right femoral sheath was removed over a wire and the access site was closed with a 6 Tunisian Angio-Seal device which was deployed without difficulty with excellent hemostasis. The groin was examined, excellent hemostasis was ensured, there was no evidence of extravasation or access site complication, and there was an excellent posterior tibial and peroneal signal in the foot. I discussed the findings with the patient and we will plan on right transmetatarsal amputation in the morning AHSAN RODRIGUEZ MD Dec 30, 2018 11:28
--- NOTE | 2018-12-30 15:00 | NUR ---
Assisted pt to restroom using walker. Gait is unsteady and weaving side to side. Asked pt if he was feeling ok. He stated "he was fine just weak from not moving much." While in the restroom pt requesting to stand at the toilet to void. Requested pt sit on toilet and use the urinal but he refused. He pushed the walker all the way to the back of the toilet. Asked pt to move his feet forward so they would be lined up better. As he was moving his feet he began to fall backwards. Assisted pt to the floor. No injury occurred. Dr. Santos notified. Assisted pt to chair. Family at bedside. Call light within reach. Pt RN was updated and in the room taking vitals.
--- NOTE | 2018-12-30 17:44 | PDOC ---
PROGRESS NOTES Chief Complaint Chief Complaint dry gangrene, ischemic toes, peripheral vascular disease and poss osteo will prob need amputation, DM2 prior CVA, vasculopathy, his family had stopped his aspirin and substituted tylenol obese, BMI 33 History of Present Illness History of Present Illness Right foot inspected, all 4 toes gangrenous Minimal sensation on that extremity Surgeon has seen the patient -vascular surgery consulted recommendations greatly appreciated Blood sugars okay, unknown hemoglobin A1c Patient resting comfortably in bed PLAN: Continue current insulin regimen seems to be working Continue current antibiotics with Zyvox and Zosyn further recommendations as per vascular discussed with son at bedside, patient is probably uncergoing amputation on Friday Blood pressure high, add labetalol when necessary Avoid Nephrotoxins-creatinine 1.9 in this diabetic with PVD Vitals Vitals Vital Signs Date Time Temp Pulse Resp B/P (MAP) Pulse Ox O2 Delivery O2 Flow Rate FiO2 12/30/18 15:00 99.0 75 16 140/71 (94) 96 Room Air 99.0 12/30/18 10:57 2.0 Physical Exam Physical Exam GENERAL: Alert, oriented gentleman, not in distress. VITAL SIGNS: Stable, afebrile. HEENT: NAD. NECK: Supple, no JVP, no lymphadenopathy. LUNGS: Clear. HEART: S1, S2 regular. ABDOMEN: Benign. EXTREMITIES: Left lower extremity is unremarkable. Right lower extremity has extensive gangrene of all the toes with crusted skin with some drainage and smell to it. There is erythema of the foot, and pulses are not palpable. NEUROLOGIC: Alert, awake and appropriate. No focal neurologic deficit. General: Alert, Oriented X3, Cooperative, No acute distress Heart: Regular rate, Normal S1, Normal S2, No murmurs Abdomen: Soft, No tenderness Extremities: No clubbing, No cyanosis, Other (Right foot edema up to mid armijo) Skin: Other (Left foot with hard calloused ulcer to left great toe medial plantar surface. Right foot with dry, hard eschar to all 5 toes, more prominent on plantar surface. There is no drainage throughout. The right foot had erythema and edema extending just above ankle. ) Labs LABS Laboratory Tests Test 12/29/18 20:33 12/30/18 03:05 12/30/18 07:27 12/30/18 09:57 Glucose (Fingerstick) 92 mg/dL (70-99) 114 mg/dL (70-99) White Blood Count 11.9 x10^3/uL (4.0-11.0) Red Blood Count 3.99 x10^6/uL (4.30-5.70) Hemoglobin 11.9 g/dL (13.0-17.5) Hematocrit 36.4 % (39.0-53.0) Mean Corpuscular Volume 91 fL (79-100) Mean Corpuscular Hemoglobin 30 pg (25-35) Mean Corpuscular Hemoglobin Concent 33 g/dL (31-37) Red Cell Distribution Width 13.7 % (11.5-14.5) Platelet Count 505 x10^3/uL (140-400) Sodium Level 141 mmol/L (136-145) Potassium Level 3.6 mmol/L (3.5-5.1) Chloride Level 101 mmol/L (98-107) Carbon Dioxide Level 28 mmol/L (21-32) Anion Gap 12 (6-14) Blood Urea Nitrogen 31 mg/dL (8-26) Creatinine 2.1 mg/dL (0.7-1.3) Estimated GFR (Cockcroft-Gault) 31.2 Glucose Level 136 mg/dL (70-99) Calcium Level 9.4 mg/dL (8.5-10.1) Activated Clotting Time 213 sec (92-181) Test 12/30/18 11:19 12/30/18 16:29 Glucose (Fingerstick) 112 mg/dL (70-99) 111 mg/dL (70-99) Review of Systems Review of Systems negative 10 point ROS only pertinent as per HPI Comment Review of Relevant I have reviewed the following items magalie (where applicable) has been applied. Labs Laboratory Tests Test 12/28/18 21:07 12/28/18 22:14 12/29/18 07:52 12/29/18 11:02 Glucose (Fingerstick) 61 mg/dL (70-99) 83 mg/dL (70-99) 126 mg/dL (70-99) 157 mg/dL (70-99) Test 12/29/18 16:46 12/29/18 20:33 12/30/18 03:05 12/30/18 07:27 Glucose (Fingerstick) 178 mg/dL (70-99) 92 mg/dL (70-99) 114 mg/dL (70-99) White Blood Count 11.9 x10^3/uL (4.0-11.0) Red Blood Count 3.99 x10^6/uL (4.30-5.70) Hemoglobin 11.9 g/dL (13.0-17.5) Hematocrit 36.4 % (39.0-53.0) Mean Corpuscular Volume 91 fL (79-100) Mean Corpuscular Hemoglobin 30 pg (25-35) Mean Corpuscular Hemoglobin Concent 33 g/dL (31-37) Red Cell Distribution Width 13.7 % (11.5-14.5) Platelet Count 505 x10^3/uL (140-400) Sodium Level 141 mmol/L (136-145) Potassium Level 3.6 mmol/L (3.5-5.1) Chloride Level 101 mmol/L (98-107) Carbon Dioxide Level 28 mmol/L (21-32) Anion Gap 12 (6-14) Blood Urea Nitrogen 31 mg/dL (8-26) Creatinine 2.1 mg/dL (0.7-1.3) Estimated GFR (Cockcroft-Gault) 31.2 Glucose Level 136 mg/dL (70-99) Calcium Level 9.4 mg/dL (8.5-10.1) Test 12/30/18 09:57 12/30/18 11:19 12/30/18 16:29 Activated Clotting Time 213 sec (92-181) Glucose (Fingerstick) 112 mg/dL (70-99) 111 mg/dL (70-99) Laboratory Tests Test 12/29/18 20:33 12/30/18 03:05 12/30/18 07:27 12/30/18 09:57 Glucose (Fingerstick) 92 mg/dL (70-99) 114 mg/dL (70-99) White Blood Count 11.9 x10^3/uL (4.0-11.0) Red Blood Count 3.99 x10^6/uL (4.30-5.70) Hemoglobin 11.9 g/dL (13.0-17.5) Hematocrit 36.4 % (39.0-53.0) Mean Corpuscular Volume 91 fL (79-100) Mean Corpuscular Hemoglobin 30 pg (25-35) Mean Corpuscular Hemoglobin Concent 33 g/dL (31-37) Red Cell Distribution Width 13.7 % (11.5-14.5) Platelet Count 505 x10^3/uL (140-400) Sodium Level 141 mmol/L (136-145) Potassium Level 3.6 mmol/L (3.5-5.1) Chloride Level 101 mmol/L (98-107) Carbon Dioxide Level 28 mmol/L (21-32) Anion Gap 12 (6-14) Blood Urea Nitrogen 31 mg/dL (8-26) Creatinine 2.1 mg/dL (0.7-1.3) Estimated GFR (Cockcroft-Gault) 31.2 Glucose Level 136 mg/dL (70-99) Calcium Level 9.4 mg/dL (8.5-10.1) Activated Clotting Time 213 sec (92-181) Test 12/30/18 11:19 12/30/18 16:29 Glucose (Fingerstick) 112 mg/dL (70-99) 111 mg/dL (70-99) Medications Current Medications Insulin Human Lispro (HumaLOG) 0-9 UNITS TIDWMEALS SQ Last administered on 12/27at 18:33; Start 12/27/18 at 17:00; Stop 12/28/18 at 07:59; Status DC Dextrose (Dextrose 50%-Water Syringe) 12.5 gm PRN Q15MIN PRN IV SEE COMMENTS; Start 12/27/18 at 16:45 Atorvastatin Calcium (Lipitor) 40 mg HS PO Last administered on 12/29/18at 19:59 ; Start 12/27/18 at 21:00 Metoprolol Succinate (Toprol Xl) 25 mg DAILY PO Last administered on 12/30/18at 08:25; Start 12/28/18 at 09:00 Niacin (Slo-Niacin) 500 mg HS PO Last administered on 12/29/18at 19:59; Start at 21:00 Vitamin D (Vitamin D3) 5,000 unit DAILY PO Last administered on 12/28/18at 09:06 ; Start 12/28/18 at 09:00 Non-Formulary Medication (Dulaglutide (Trulicity)) 1.5 mg WEEKLY SQ ; Start 01/03 at 09:00; Status UNV Glimepiride (Amaryl) 4 mg BIDAC PO Last administered on 12/30/18at 17:08; Start 12/27/18 at 18:30 Hydrochlorothiazide (Hydrodiuril) 25 mg DAILY PO Last administered on at 09:06; Start 12/28/18 at 09:00 Insulin Glargine (Lantus) 32 units QHS SQ Last administered on 12/27/18at 21:24 ; Start 12/27/18 at 21:00 Levothyroxine Sodium (Synthroid) 50 mcg DAILY06 PO Last administered on at 07:01; Start 12/28/18 at 06:00 Insulin Human Lispro (HumaLOG) 0-9 UNITS TIDACHC SQ Last administered on at 17:02; Start 12/28/18 at 11:30 Labetalol HCl (Normodyne Iv Push) 10 mg PRN Q2HR PRN IVP HYPERTENSION, SEE COMMENTS; Start 12/28/18 at 08:00 Acetaminophen (Tylenol) 500 mg PRN Q6HRS PRN PO MILD PAIN / TEMP; Start at 08:00 Acetaminophen/ Codeine Phosphate (Tylenol #3) 1 tab PRN Q6HRS PRN PO MODERATE PAIN; Start 12/28/18 at 08:00 Ondansetron HCl (Zofran) 4 mg PRN Q6HRS PRN IV NAUSEA/VOMITING; Start 12/28/18 at 08:00 Ondansetron HCl (Zofran Odt) 4 mg PRN Q6HRS PRN PO NAUSEA/VOMITING; Start 12/28 at 08:00 Sodium Chloride 1,000 ml @ 75 mls/hr 1X ONCE IV Last administered on at 15:23; Start 12/28/18 at 14:30; Stop 12/29/18 at 03:49; Status DC Sodium Chloride 500 ml @ 250 mls/hr 1X ONCE IV ; Start 12/29/18 at 11:00; Stop 12/29/18 at 12:51; Status DC Influenza Virus Vaccine (Afluria Trivalent [id number] Syringe) 0.5 ml ONCE ONCE VAX IM ; Start 12/29/18 at 10:00; Stop 12/29/18 at 10:01; Status DC Piperacillin Sod/ Tazobactam Sod (Zosyn Per Pharmacy) 1 each PRN DAILY PRN MC SEE COMMENTS; Start 12/29/18 at 11:45 Aspirin (Ecotrin) 81 mg DAILYWBKFT PO Last administered on 12/29/18at 12:11; Start 12/29/18 at 12:00 Piperacillin Sod/ Tazobactam Sod 3.375 gm/Sodium Chloride 50 ml @ 100 mls/hr Q6HRS IV Last administered on 12/30/18at 17:32; Start 12/29/18 at 12:00 Sodium Chloride 1,000 ml @ 75 mls/hr 1X ONCE IV Last administered on at 01:12; Start 12/30/18 at 00:00; Stop 12/30/18 at 13:19; Status DC Sodium Chloride 500 ml @ 250 mls/hr 1X ONCE IV Last administered on at 08:13; Start 12/30/18 at 09:30; Stop 12/30/18 at 11:29; Status DC Lactobacillus Rhamnosus (Culturelle) 1 cap BID PO Last administered on at 19:59; Start 12/29/18 at 21:00 Multivitamins (Thera M Plus) 1 tab DAILY PO ; Start 12/30/18 at 09:00 Linezolid/Dextrose 300 ml @ 300 mls/hr Q12HR IV Last administered on at 22:43; Start 12/29/18 at 15:00 Midazolam HCl (Versed) 5 mg STK-MED ONCE .ROUTE ; Start 12/30/18 at 08:07; Stop 12/30/18 at 08:08; Status DC Fentanyl Citrate (Fentanyl 2ml Vial) 100 mcg STK-MED ONCE .ROUTE ; Start at 08:07; Stop 12/30/18 at 08:08; Status DC Heparin Sodium (Porcine) (Heparin Sodium) 10,000 unit STK-MED ONCE .ROUTE ; Start 12/30/18 at 08:07; Stop 12/30/18 at 08:08; Status DC Iodixanol (Visipaque 320) 100 ml STK-MED ONCE .ROUTE ; Start 12/30/18 at 08:07; Stop 12/30/18 at 08:08; Status DC Lidocaine HCl (Lidocaine 1% 20ml Vial) 20 ml STK-MED ONCE .ROUTE ; Start at 08:07; Stop 12/30/18 at 08:08; Status DC Heparin Sodium/ Sodium Chloride 1,500 ml @ As Directed STK-MED ONCE .ROUTE ; Start 12/30/18 at 08:07; Stop 12/30/18 at 08:08; Status DC Heparin Sodium/ Sodium Chloride (HEPARIN for ARTERIAL LINE FLUSH) 1,000 unit 1X ONCE IART Last administered on 12/30/18at 10:53; Start 12/30/18 at 09:15; Stop 12/30/18 at 09:16; Status DC Midazolam HCl (Versed) 5 mg 1X ONCE IV Last administered on 12/30/18at 11:01; Start 12/30/18 at 09:15; Stop 12/30/18 at 09:16; Status DC Fentanyl Citrate (Fentanyl 2ml Vial) 100 mcg 1X ONCE IV Last administered on at 10:55; Start 12/30/18 at 09:15; Stop 12/30/18 at 09:16; Status DC Iodixanol (Visipaque 320) 100 ml 1X ONCE IART Last administered on 12/30/18at 11:01; Start 12/30/18 at 09:15; Stop 12/30/18 at 09:16; Status DC Lidocaine HCl (Lidocaine 1% 20ml Vial) 20 ml 1X ONCE INJ Last administered on 12/30/18 11:01; Start 12/30/18 at 09:15; Stop 12/30/18 at 09:16; Status DC Iodixanol (Visipaque 320) 100 ml STK-MED ONCE .ROUTE ; Start 12/30/18 at 09:42; Stop 12/30/18 at 09:43; Status DC Heparin Sodium (Porcine) (Heparin Sodium) 6,000 unit 1X ONCE IV Last administered on 12/30/18at 11:00; Start 12/30/18 at 09:16; Stop 12/30/18 at 10:06 ; Status DC Lidocaine HCl (Lidocaine 1% 20ml Vial) 20 ml STK-MED ONCE .ROUTE ; Start at 10:06; Stop 12/30/18 at 10:07; Status DC Nitroglycerin (Nitroglycerin) 200 mcg 1X ONCE IART Last administered on at 11:01; Start 12/30/18 at 10:15; Stop 12/30/18 at 10:16; Status DC Protamine Sulfate (Protamine) 50 mg STK-MED ONCE IV ; Start 12/30/18 at 10:39; Stop 12/30/18 at 10:40; Status DC Protamine Sulfate (Protamine) 30 mg 1X ONCE IV Last administered on 12/30/18at 10:48; Start 12/30/18 at 10:48; Stop 12/30/18 at 10:58; Status DC Morphine Sulfate (Morphine Sulfate) 1 mg PRN Q10MIN PRN IV SEVERE PAIN; Start 12/31/18 at 07:00; Stop 01/01/19 at 06:59 Ringer's Solution 1,000 ml @ 30 mls/hr Q24H IV ; Start 12/31/18 at 07:00; Stop 12/31/18 at 18:59 Lidocaine HCl (Xylocaine-Mpf 1% 2ml Vial) 2 ml PRN 1X PRN ID PRIOR TO IV START ; Start 12/31/18 at 07:00; Stop 01/01/19 at 06:59 Hydromorphone HCl (Dilaudid) 0.5 mg PRN Q10MIN PRN IV SEV PAIN, Second choice; Start 12/31/18 at 07:00; Stop 01/01/19 at 06:59 Prochlorperazine Edisylate (Compazine) 5 mg PACU PRN PRN IV NAUSEA, MRX1; Start 12/31/18 at 07:00; Stop 01/01/19 at 06:59 Active Scripts Active Reported Cipro (Ciprofloxacin Hcl) 500 Mg Tablet 1 Tab PO BID Niaspan (Niacin) 500 Mg Tab.er.24h 500 Mg PO HS Hydrochlorothiazide Tablet (Hydrochlorothiazide) 12.5 Mg Tablet 25 Mg PO DAILY Metoprolol Succinate ( Xl ) (Metoprolol Succinate) 25 Mg Tab.er.24h 25 Mg PO DAILY Lipitor (Atorvastatin Calcium) 40 Mg Tablet 40 Mg PO HS Trulicity (Dulaglutide) 1.5 Mg/0.5 Ml Pen.injctr 1.5 Mg SQ WEEKLY [place] Solostar (Insulin Glargine,Hum.rec.anlog) 300 Unit/1 Ml Insuln.pen 40 Unit SQ HS Aspirin 81 Mg Tab.chew 81 Mg PO BID Glimepiride 4 Mg Tablet 4 Mg PO BIDAC Synthroid (Levothyroxine Sodium) 50 Mcg Tablet 50 Mcg PO DAILYAC Vitamin D3 (Cholecalciferol (Vitamin D3)) 5,000 Unit Tablet 5,000 Unit PO DAILY Vitals/I & O Vital Sign - Last 24 Hours 12/29/18 12/29/18 12/29/18 12/30/18 19:00 20:00 22:35 03:00 Temp 98.1 98.4 98.6 98.1 98.4 98.6 Pulse 81 73 75 Resp 18 18 18 B/P (MAP) 119/38 (65) 134/52 (79) 114/53 (73) Pulse Ox 97 97 97 O2 Delivery Room Air Room Air Room Air Room Air 12/30/18 12/30/18 12/30/18 12/30/18 07:00 08:00 08:25 10:55 Temp 97.7 97.7 Pulse 74 74 Resp 18 16 B/P (MAP) 115/57 (76) 115/57 Pulse Ox 98 99 O2 Delivery Room Air Room Air Nasal Cannula O2 Flow Rate 2.0 12/30/18 12/30/18 12/30/18 12/30/18 10:57 11:15 11:30 11:45 Temp 98.4 98.4 Pulse 78 84 76 78 Resp 16 18 18 18 B/P (MAP) 133/60 (84) 130/60 (83) 125/65 (85) Pulse Ox 99 98 98 94 O2 Delivery Nasal Cannula Room Air Room Air Room Air O2 Flow Rate 2.0 12/30/18 12/30/18 12/30/18 12/30/18 12:00 12:15 12:45 13:15 Pulse 76 84 75 72 Resp 18 18 18 18 B/P (MAP) 128/68 (88) 127/69 (88) 136/71 (92) 128/58 (81) Pulse Ox 98 99 94 99 O2 Delivery Room Air Room Air Room Air Room Air 12/30/18 12/30/18 13:45 15:00 Temp 99.0 99.0 Pulse 88 75 Resp 18 16 B/P (MAP) 94/49 (64) 140/71 (94) Pulse Ox 96 96 O2 Delivery Room Air Room Air Intake and Output 12/29/18 12/29/18 12/30/18 15:00 23:00 07:00 Intake Total 0 ml Output Total 500 ml Balance -500 ml MARY CARMEN DE GUZMAN MD Dec 30, 2018 17:44
[2018-12-30] MEDS: NIACIN ER 500 MG TABLET.ER PO SCH (20:52)
[2018-12-30] MEDS: ATORVASTATIN CALCIUM 40 MG TABLET. PO SCH (20:52)
[2018-12-30] MEDS: INSULIN GLARGINE 300 UNITS/3 ML INSULN.PEN. SQ SCH (20:55)
[2018-12-31] VITALS (11 sets, daily range): BP systolic 114–166; BP diastolic 50–89
[2018-12-31] MEDS: LEVOTHYROXINE 50 MCG TABLET PO SCH (05:53)
[2018-12-31] MEDS: PIPERACILLIN/TAZOBACTAM 3.375 GM in IV NORMAL SALINE 50ML 50 ML IV SCH ×3 (05:53→17:30)
[2018-12-31] MEDS ORDERED: PROCHLORPERAZINE 10 MG/2 ML VIAL. IV PRN (07:00)
[2018-12-31] MEDS ORDERED: IV RINGERS,LACTATED 1000ML 1,000 ML IV SCH (07:00)
[2018-12-31] MEDS ORDERED: HYDROmorphone 2 MG/ML VIAL IV PRN (07:00)
[2018-12-31] MEDS ORDERED: LIDOCAINE 1% PF 2 ML VIAL. ID PRN (07:00)
[2018-12-31] MEDS ORDERED: MORPHINE SULFATE 2 MG/ML VIAL. IV PRN (07:00)
[2018-12-31] MEDS ORDERED: BUPIVACAINE MPF 0.5% 30 ML VIAL. ONE (07:02)
[2018-12-31] MEDS ORDERED: LIDOCAINE 1% PF 30 ML VIAL. ONE ×2 (07:02)
[2018-12-31] MEDS ORDERED: LIDOCAINE 2% PF 5 ML VIAL. ONE (07:05)
[2018-12-31] MEDS ORDERED: PROPOFOL 20 ML IV ONE (07:05)
[2018-12-31] MEDS ORDERED: DEXAMETHASONE SOD PHOS 20 MG/5 ML VIAL. ONE (07:05)
[2018-12-31] MEDS ORDERED: FAMOTIDINE 20 MG/2 ML VIAL ONE (07:05)
[2018-12-31] MEDS ORDERED: ONDANSETRON PF 4 MG/2 ML VIAL. ONE ×2 (07:05→09:39)
[2018-12-31] MEDS ORDERED: fentaNYL PF VIAL 100 MCG/2 ML VIAL ONE (07:06)
--- NOTE | 2018-12-31 07:18 | PDOC ---
PROGRESS NOTES Subjective Subjective Pt has no c/o he denies any pain or fullness in the right groin at the access site for yesterday's angiogram We discussed the procedure today (right trans-metatarsal amputation and left great toe wound debridement) and he and his son (present for discussion) wish to proceed Right foot and left great toe marked consent signed he was seen and examined this morning and there are no changes other than now improved blood flow to the right foot from yesterday's angiogram plan to proceed with RIGHT trans-met amputation and debridement of LEFT great toe wound Objective Objective Vital Signs Date Time Temp Pulse Resp B/P (MAP) Pulse Ox O2 Delivery O2 Flow Rate FiO2 12/31/18 03:00 98.3 80 18 114/50 (71) 93 Room Air 98.3 12/30/18 10:57 2.0 Intake and Output 12/31/18 06:59 Intake Total 250 ml Output Total 450 ml Balance -200 ml Intake Oral 250 ml Output Urine Total 450 ml # Voids 8 Physical Exam COMMENT right groin access site soft, non-tender no mass no hematoma excellent right peroneal and PT signals at the ankle right forefoot marked; left great toe marked otherwise no changes to previous Diagnosis DIAGNOSIS 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 Labs Laboratory Tests Test 12/29/18 07:52 12/29/18 11:02 12/29/18 16:46 12/29/18 20:33 Glucose (Fingerstick) 126 mg/dL (70-99) 157 mg/dL (70-99) 178 mg/dL (70-99) 92 mg/dL (70-99) Test 12/30/18 03:05 12/30/18 07:27 12/30/18 09:57 12/30/18 11:19 White Blood Count 11.9 x10^3/uL (4.0-11.0) Red Blood Count 3.99 x10^6/uL (4.30-5.70) Hemoglobin 11.9 g/dL (13.0-17.5) Hematocrit 36.4 % (39.0-53.0) Mean Corpuscular Volume 91 fL (79-100) Mean Corpuscular Hemoglobin 30 pg (25-35) Mean Corpuscular Hemoglobin Concent 33 g/dL (31-37) Red Cell Distribution Width 13.7 % (11.5-14.5) Platelet Count 505 x10^3/uL (140-400) Sodium Level 141 mmol/L (136-145) Potassium Level 3.6 mmol/L (3.5-5.1) Chloride Level 101 mmol/L (98-107) Carbon Dioxide Level 28 mmol/L (21-32) Anion Gap 12 (6-14) Blood Urea Nitrogen 31 mg/dL (8-26) Creatinine 2.1 mg/dL (0.7-1.3) Estimated GFR (Cockcroft-Gault) 31.2 Glucose Level 136 mg/dL (70-99) Calcium Level 9.4 mg/dL (8.5-10.1) Glucose (Fingerstick) 114 mg/dL (70-99) 112 mg/dL (70-99) Activated Clotting Time 213 sec (92-181) Test 12/30/18 16:29 12/30/18 20:37 Glucose (Fingerstick) 111 mg/dL (70-99) 180 mg/dL (70-99) Laboratory Tests Test 12/30/18 07:27 12/30/18 09:57 12/30/18 11:19 12/30/18 16:29 Glucose (Fingerstick) 114 mg/dL (70-99) 112 mg/dL (70-99) 111 mg/dL (70-99) Activated Clotting Time 213 sec (92-181) Test 12/30/18 20:37 Glucose (Fingerstick) 180 mg/dL (70-99) Medications Current Medications Insulin Human Lispro (HumaLOG) 0-9 UNITS TIDWMEALS SQ Last administered on 12/27at 18:33; Start 12/27/18 at 17:00; Stop 12/28/18 at 07:59; Status DC Dextrose (Dextrose 50%-Water Syringe) 12.5 gm PRN Q15MIN PRN IV SEE COMMENTS; Start 12/27/18 at 16:45 Atorvastatin Calcium (Lipitor) 40 mg HS PO Last administered on 12/30/18at 20:52 ; Start 12/27/18 at 21:00 Metoprolol Succinate (Toprol Xl) 25 mg DAILY PO Last administered on 12/30/18 08:25; Start 12/28/18 at 09:00 Niacin (Slo-Niacin) 500 mg HS PO Last administered on 12/30/18at 20:52; Start at 21:00 Vitamin D (Vitamin D3) 5,000 unit DAILY PO Last administered on 12/28/18 09:06 ; Start 12/28/18 at 09:00 Non-Formulary Medication (Dulaglutide (Trulicity)) 1.5 mg WEEKLY SQ ; Start 01/03 at 09:00; Status UNV Glimepiride (Amaryl) 4 mg BIDAC PO Last administered on 12/30/18 17:08; Start 12/27/18 at 18:30 Hydrochlorothiazide (Hydrodiuril) 25 mg DAILY PO Last administered on 09:06; Start 12/28/18 at 09:00 Insulin Glargine (Lantus) 32 units QHS SQ Last administered on 12/30/18 20:55 ; Start 12/27/18 at 21:00 Levothyroxine Sodium (Synthroid) 50 mcg DAILY06 PO Last administered on 07:01; Start 12/28/18 at 06:00 Insulin Human Lispro (HumaLOG) 0-9 UNITS TIDACHC SQ Last administered on at 17:02; Start 12/28/18 at 11:30 Labetalol HCl (Normodyne Iv Push) 10 mg PRN Q2HR PRN IVP HYPERTENSION, SEE COMMENTS; Start 12/28/18 at 08:00 Acetaminophen (Tylenol) 500 mg PRN Q6HRS PRN PO MILD PAIN / TEMP; Start at 08:00 Acetaminophen/ Codeine Phosphate (Tylenol #3) 1 tab PRN Q6HRS PRN PO MODERATE PAIN; Start 12/28/18 at 08:00 Ondansetron HCl (Zofran) 4 mg PRN Q6HRS PRN IV NAUSEA/VOMITING; Start 12/28/18 at 08:00 Ondansetron HCl (Zofran Odt) 4 mg PRN Q6HRS PRN PO NAUSEA/VOMITING; Start 12/28 at 08:00 Sodium Chloride 1,000 ml @ 75 mls/hr 1X ONCE IV Last administered on at 15:23; Start 12/28/18 at 14:30; Stop 12/29/18 at 03:49; Status DC Sodium Chloride 500 ml @ 250 mls/hr 1X ONCE IV ; Start 12/29/18 at 11:00; Stop 12/29/18 at 12:51; Status DC Influenza Virus Vaccine (Afluria Trivalent [id number] Syringe) 0.5 ml ONCE ONCE VAX IM ; Start 12/29/18 at 10:00; Stop 12/29/18 at 10:01; Status DC Piperacillin Sod/ Tazobactam Sod (Zosyn Per Pharmacy) 1 each PRN DAILY PRN MC SEE COMMENTS; Start 12/29/18 at 11:45 Aspirin (Ecotrin) 81 mg DAILYWBKFT PO Last administered on 12/29/18at 12:11; Start 12/29/18 at 12:00 Piperacillin Sod/ Tazobactam Sod 3.375 gm/Sodium Chloride 50 ml @ 100 mls/hr Q6HRS IV Last administered on 12/31/18at 05:53; Start 12/29/18 at 12:00 Sodium Chloride 1,000 ml @ 75 mls/hr 1X ONCE IV Last administered on at 01:12; Start 12/30/18 at 00:00; Stop 12/30/18 at 13:19; Status DC Sodium Chloride 500 ml @ 250 mls/hr 1X ONCE IV Last administered on at 08:13; Start 12/30/18 at 09:30; Stop 12/30/18 at 11:29; Status DC Lactobacillus Rhamnosus (Culturelle) 1 cap BID PO Last administered on at 20:53; Start 12/29/18 at 21:00 Multivitamins (Thera M Plus) 1 tab DAILY PO ; Start 12/30/18 at 09:00 Linezolid/Dextrose 300 ml @ 300 mls/hr Q12HR IV Last administered on at 20:57; Start 12/29/18 at 15:00 Midazolam HCl (Versed) 5 mg STK-MED ONCE .ROUTE ; Start 12/30/18 at 08:07; Stop 12/30/18 at 08:08; Status DC Fentanyl Citrate (Fentanyl 2ml Vial) 100 mcg STK-MED ONCE .ROUTE ; Start at 08:07; Stop 12/30/18 at 08:08; Status DC Heparin Sodium (Porcine) (Heparin Sodium) 10,000 unit STK-MED ONCE .ROUTE ; Start 12/30/18 at 08:07; Stop 12/30/18 at 08:08; Status DC Iodixanol (Visipaque 320) 100 ml STK-MED ONCE .ROUTE ; Start 12/30/18 at 08:07; Stop 12/30/18 at 08:08; Status DC Lidocaine HCl (Lidocaine 1% 20ml Vial) 20 ml STK-MED ONCE .ROUTE ; Start at 08:07; Stop 12/30/18 at 08:08; Status DC Heparin Sodium/ Sodium Chloride 1,500 ml @ As Directed STK-MED ONCE .ROUTE ; Start 12/30/18 at 08:07; Stop 12/30/18 at 08:08; Status DC Heparin Sodium/ Sodium Chloride (HEPARIN for ARTERIAL LINE FLUSH) 1,000 unit 1X ONCE IART Last administered on 12/30/18at 10:53; Start 12/30/18 at 09:15; Stop 12/30/18 at 09:16; Status DC Midazolam HCl (Versed) 5 mg 1X ONCE IV Last administered on 12/30/18at 11:01; Start 12/30/18 at 09:15; Stop 12/30/18 at 09:16; Status DC Fentanyl Citrate (Fentanyl 2ml Vial) 100 mcg 1X ONCE IV Last administered on at 10:55; Start 12/30/18 at 09:15; Stop 12/30/18 at 09:16; Status DC Iodixanol (Visipaque 320) 100 ml 1X ONCE IART Last administered on 12/30/18at 11:01; Start 12/30/18 at 09:15; Stop 12/30/18 at 09:16; Status DC Lidocaine HCl (Lidocaine 1% 20ml Vial) 20 ml 1X ONCE INJ Last administered on 12/30/18at 11:01; Start 12/30/18 at 09:15; Stop 12/30/18 at 09:16; Status DC Iodixanol (Visipaque 320) 100 ml STK-MED ONCE .ROUTE ; Start 12/30/18 at 09:42; Stop 12/30/18 at 09:43; Status DC Heparin Sodium (Porcine) (Heparin Sodium) 6,000 unit 1X ONCE IV Last administered on 12/30/18at 11:00; Start 12/30/18 at 09:16; Stop 12/30/18 at 10:06 ; Status DC Lidocaine HCl (Lidocaine 1% 20ml Vial) 20 ml STK-MED ONCE .ROUTE ; Start at 10:06; Stop 12/30/18 at 10:07; Status DC Nitroglycerin (Nitroglycerin) 200 mcg 1X ONCE IART Last administered on at 11:01; Start 12/30/18 at 10:15; Stop 12/30/18 at 10:16; Status DC Protamine Sulfate (Protamine) 50 mg STK-MED ONCE IV ; Start 12/30/18 at 10:39; Stop 12/30/18 at 10:40; Status DC Protamine Sulfate (Protamine) 30 mg 1X ONCE IV Last administered on 12/30/18at 10:48; Start 12/30/18 at 10:48; Stop 12/30/18 at 10:58; Status DC Morphine Sulfate (Morphine Sulfate) 1 mg PRN Q10MIN PRN IV SEVERE PAIN; Start 12/31/18 at 07:00; Stop 01/01/19 at 06:59 Ringer's Solution 1,000 ml @ 30 mls/hr Q24H IV ; Start 12/31/18 at 07:00; Stop 12/31/18 at 18:59 Lidocaine HCl (Xylocaine-Mpf 1% 2ml Vial) 2 ml PRN 1X PRN ID PRIOR TO IV START ; Start 12/31/18 at 07:00; Stop 01/01/19 at 06:59 Hydromorphone HCl (Dilaudid) 0.5 mg PRN Q10MIN PRN IV SEV PAIN, Second choice; Start 12/31/18 at 07:00; Stop 01/01/19 at 06:59 Prochlorperazine Edisylate (Compazine) 5 mg PACU PRN PRN IV NAUSEA, MRX1; Start 12/31/18 at 07:00; Stop 01/01/19 at 06:59 Lidocaine HCl (Xylocaine 1% Pf 30ml Vial) 30 ml STK-MED ONCE .ROUTE ; Start at 07:02; Stop 12/31/18 at 07:03; Status DC Lidocaine HCl (Xylocaine 1% Pf 30ml Vial) 30 ml STK-MED ONCE .ROUTE ; Start at 07:02; Stop 12/31/18 at 07:03; Status DC Bupivacaine HCl (Sensorcaine Mpf 0.5%) 30 ml STK-MED ONCE .ROUTE ; Start at 07:02; Stop 12/31/18 at 07:03; Status DC Ondansetron HCl (Zofran) 4 mg STK-MED ONCE .ROUTE ; Start 12/31/18 at 07:05; Stop 12/31/18 at 07:06; Status DC Lidocaine HCl (Lidocaine Pf 2% Vial) 5 ml STK-MED ONCE .ROUTE ; Start 12/31/18 at 07:05; Stop 12/31/18 at 07:06; Status DC Propofol 20 ml @ As Directed STK-MED ONCE IV ; Start 12/31/18 at 07:05; Stop at 07:06; Status DC Famotidine (Pepcid Vial) 20 mg STK-MED ONCE .ROUTE ; Start 12/31/18 at 07:05; Stop 12/31/18 at 07:06; Status DC Dexamethasone Sodium Phosphate (Decadron) 20 mg STK-MED ONCE .ROUTE ; Start at 07:05; Stop 12/31/18 at 07:06; Status DC Fentanyl Citrate (Fentanyl 2ml Vial) 100 mcg STK-MED ONCE .ROUTE ; Start at 07:06; Stop 12/31/18 at 07:07; Status DC Active Scripts Active Reported Cipro (Ciprofloxacin Hcl) 500 Mg Tablet 1 Tab PO BID Niaspan (Niacin) 500 Mg Tab.er.24h 500 Mg PO HS Hydrochlorothiazide Tablet (Hydrochlorothiazide) 12.5 Mg Tablet 25 Mg PO DAILY Metoprolol Succinate ( Xl ) (Metoprolol Succinate) 25 Mg Tab.er.24h 25 Mg PO DAILY Lipitor (Atorvastatin Calcium) 40 Mg Tablet 40 Mg PO HS Trulicity (Dulaglutide) 1.5 Mg/0.5 Ml Pen.injctr 1.5 Mg SQ WEEKLY Re Solostar (Insulin Glargine,Hum.rec.anlog) 300 Unit/1 Ml Insuln.pen 40 Unit SQ HS Aspirin 81 Mg Tab.chew 81 Mg PO BID Glimepiride 4 Mg Tablet 4 Mg PO BIDAC Synthroid (Levothyroxine Sodium) 50 Mcg Tablet 50 Mcg PO DAILYAC Vitamin D3 (Cholecalciferol (Vitamin D3)) 5,000 Unit Tablet 5,000 Unit PO DAILY Vitals/I & O Vital Sign - Last 24 Hours 12/30/18 12/30/18 12/30/18 12/30/18 08:00 08:25 10:55 10:57 Pulse 74 78 Resp 16 16 B/P (MAP) 115/57 Pulse Ox 99 99 O2 Delivery Room Air Nasal Cannula Nasal Cannula O2 Flow Rate 2.0 2.0 12/30/18 12/30/18 12/30/18 12/30/18 11:15 11:30 11:45 12:00 Temp 98.4 98.4 Pulse 84 76 78 76 Resp 18 18 18 18 B/P (MAP) 133/60 (84) 130/60 (83) 125/65 (85) 128/68 (88) Pulse Ox 98 98 94 98 O2 Delivery Room Air Room Air Room Air Room Air 12/30/18 12/30/18 12/30/18 12/30/18 12:15 12:45 13:15 13:45 Pulse 84 75 72 88 Resp 18 18 18 18 B/P (MAP) 127/69 (88) 136/71 (92) 128/58 (81) 94/49 (64) Pulse Ox 99 94 99 96 O2 Delivery Room Air Room Air Room Air Room Air 12/30/18 12/30/18 12/30/18 12/30/18 15:00 19:00 20:03 23:00 Temp 99.0 98.1 98.4 99.0 98.1 98.4 Pulse 75 82 84 Resp 16 18 18 B/P (MAP) 140/71 (94) 85/34 (51) 111/44 (66) Pulse Ox 96 90 92 O2 Delivery Room Air Room Air Room Air Room Air 12/31/18 03:00 Temp 98.3 98.3 Pulse 80 Resp 18 B/P (MAP) 114/50 (71) Pulse Ox 93 O2 Delivery Room Air Intake and Output 12/30/18 12/30/18 12/31/18 14:59 22:59 06:59 Intake Total 250 ml Output Total 450 ml Balance 250 ml -450 ml RILEY RODRIGUEZ MD Dec 31, 2018 07:18
[2018-12-31] MEDS: INSULIN LISPRO 300 UNITS/3 ML INSULN.PEN. SQ SCH ×4 (07:30→21:12)
[2018-12-31] MEDS: GLIMEPIRIDE 2 MG TABLET. PO SCH ×2 (07:30→17:30)
[2018-12-31] MEDS ORDERED: DESFLURANE 61 TO 120 MINUTES IH ONE (08:45)
[2018-12-31] MEDS ORDERED: PROCHLORPERAZINE 10 MG/2 ML VIAL. ONE (08:57)
--- NOTE | 2018-12-31 09:07 | PDOC4 ---
OPERATIVE NOTE Date: Date: Dec 31, 2018 Pre-Op Diagnosis: 1) Gangrene right 1st through 5th toes 2) Open ulcer left great toe Post-Op Diagnosis: same as above Procedure Performed: 1) right transmetatarsal amputation with primary closure (dry gangrene on Abx) 2) debridement of left great toe ulcer less than 20 sq cm skin and deep tissues to the level of bone and tendon Surgeon: Riley Rodriguez MD Anesthesia Type: general Blood Loss: minimal -- less than 10cc Specimans Obtained: right forefoot Findings: 1) good blood flow at the posterior flap and anterior skin edge and at all of the wound edges at right trans-met amputation 2) left toe debridement site taken to healthy skin edges Complications: none Operative Note: The patient was escorted operating room placed supine on the table. Anesthesia was induced without difficulty after placement of appropriate lines and monitoring devices. Both feet were prepped and draped in the usual sterile fashion. An appropriate timeout was performed. Attention was directed to the right foot or marking pen was used to magalie the area for incision in the standard posterior flap approach for a transmetatarsal amputation. Local anesthetic was injected in a #10 scalpel was used to make an incision of the dorsal aspect of the foot along the skin line. This was carried down with Bovie cautery through the underlying tissue. Good bleeding was observed and excellent hemostasis was obtained with the cautery. This is carried down until the metatarsal bones were identified and then a periosteal elevator was used to free these up proximal incision. Once these were freely mobilized the posterior skin was incised with a #10 scalpel and again there was good bleeding and good hemostasis was achieved with the Bovie cautery. The transmetatarsal bones were divided with a saw and then shortened with a rongeur and smoothed up with the saw. The wound was irrigated aggressively next hemostasis was ensured throughout the wound bed. The tissue edges all appeared viable without evidence of infection and with good bleeding. The tendons were removed as proximally within the wound as possible. The posterior flap was brought forward and found to have good closure of the wound with no tension. The wound was then closed with deep interrupted buried [id number] sutures with the 3-0 Vicryl and running subdermal 3-0 Vicryl. The skin was then closed with a series of interrupted vertical mattress sutures using 2-0 nylon. Attention was then directed to the left foot where an ulcer in the plantar aspect of the left great toe was examined. There was necrotic tissue at the edges of this and this was debrided by cutting away the tissue with a curet and Bovie cautery. This was done until all tissue was removed and it was healthy tissue at all skin edges. Hemostasis was assured and the wound was packed with strip gauze. Both feet were cleaned and dried and sterile dressings were placed over the incisions/wounds. The patient was awakened in the operating room and escorted to recovery in stable condition. Her were No complications. The patient tolerated the procedure well throughout and at the end of the case all sponge, needle, and instrument counts reported to me as correct 2 RILEY RODRIGUEZ MD Dec 31, 2018 09:07
--- NOTE | 2018-12-31 09:22 | NUR ---
SW following for discharge planning. Discussed with RN, pt having surgery today. SW will continue to follow for PT/OT recommendations upon discharge.
--- NOTE | 2018-12-31 10:55 | PDOC ---
Provider Note Provider Note Pt seen in recovery s/p trans-met amputation he is awake and alert, VSS I discussed findings with Pt and his son -- successful trans-met with good bleeding, expect it to heal Will plan on left leg angiogram on Friday -- will need IVF overnight on Friday RILEY RODRIGUEZ MD Dec 31, 2018 10:55
--- NOTE | 2018-12-31 11:00 | NUR ---
Pt returning from surgery via bed. Report received from SUMMER Donahue. A&O x2 confused, dressings CDI, IVF infusing. Lunch tray ordered, water pitcher filled. Family at bedside. Call light within reach. Will continue to monitor.
[2018-12-31] MEDS: LACTOBACILLUS RHAMNOSUS GG 1 CAPSULE. PO SCH ×2 (11:22→21:05)
[2018-12-31] MEDS: MULTIVITAMIN with MINERAL TABLET. PO SCH (11:22)
[2018-12-31] MEDS: hydroCHLOROthiazide 25 MG TABLET PO SCH (11:22)
[2018-12-31] MEDS: CHOLECALCIFEROL (VITAMIN D3) 5,000 UNIT CAPSULE PO SCH (11:22)
[2018-12-31] MEDS: METOPROLOL SUCC 24HR ER 25 MG TAB.ER.24H. PO SCH (11:24)
[2018-12-31] MEDS: ASPIRIN ENTERIC COATED 81 MG TABLET.DR. PO SCH (11:26)
--- NOTE | 2018-12-31 11:55 | PDOC ---
PROGRESS NOTES Chief Complaint Chief Complaint dry gangrene, ischemic toes, atherosclerosis of [place] arteries of right leg with gangrene of all toes --> s/ p perc revascularization yesterday --> 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 severe peripheral vascular disease DM2 prior CVA, vasculopathy, his family had stopped his aspirin and substituted tylenol obese, BMI 33 History of Present Illness History of Present Illness Right foot with surgical dressings status post ransmetatarsal amputation Patient resting comfortably in bed PLAN: Continue current insulin regimen seems to be working Continue current antibiotics with Zyvox and Zosyn further recommendations as per vascular discussed with son at bedside Blood pressure fairly controlled, add labetalol when necessary Avoid Nephrotoxins-creatinine 1.9 in this diabetic with PVD Vitals Vitals Vital Signs Date Time Temp Pulse Resp B/P (MAP) Pulse Ox O2 Delivery O2 Flow Rate FiO2 12/31/18 11:24 80 165/89 12/31/18 09:55 97.7 20 94 Room Air 97.7 12/31/18 09:10 10 Physical Exam Physical Exam GENERAL: Alert, oriented gentleman, not in distress. VITAL SIGNS: Stable, afebrile. HEENT: NAD. NECK: Supple, no JVP, no lymphadenopathy. LUNGS: Clear. HEART: S1, S2 regular. ABDOMEN: Benign. EXTREMITIES: Left lower extremity is unremarkable. Right lower extremity has extensive gangrene of all the toes with crusted skin with some drainage and smell to it. There is erythema of the foot, and pulses are not palpable. NEUROLOGIC: Alert, awake and appropriate. No focal neurologic deficit. General: Alert, Oriented X3, Cooperative, No acute distress Heart: Regular rate, Normal S1, Normal S2, No murmurs Abdomen: Soft, No tenderness Extremities: No clubbing, No cyanosis, Other (Right foot edema up to mid armijo) Skin: Other (Left foot with hard calloused ulcer to left great toe medial plantar surface. Right foot with dry, hard eschar to all 5 toes, more prominent on plantar surface. There is no drainage throughout. The right foot had erythema and edema extending just above ankle. ) Labs LABS Laboratory Tests Test 12/30/18 16:29 12/30/18 20:37 12/31/18 09:57 12/31/18 11:26 Glucose (Fingerstick) 111 mg/dL (70-99) 180 mg/dL (70-99) 95 mg/dL (70-99) 114 mg/dL (70-99) Review of Systems Review of Systems 10 point review of system is negative Comment Review of Relevant I have reviewed the following items magalie (where applicable) has been applied. Labs Laboratory Tests Test 12/29/18 16:46 12/29/18 20:33 12/30/18 03:05 12/30/18 07:27 Glucose (Fingerstick) 178 mg/dL (70-99) 92 mg/dL (70-99) 114 mg/dL (70-99) White Blood Count 11.9 x10^3/uL (4.0-11.0) Red Blood Count 3.99 x10^6/uL (4.30-5.70) Hemoglobin 11.9 g/dL (13.0-17.5) Hematocrit 36.4 % (39.0-53.0) Mean Corpuscular Volume 91 fL (79-100) Mean Corpuscular Hemoglobin 30 pg (25-35) Mean Corpuscular Hemoglobin Concent 33 g/dL (31-37) Red Cell Distribution Width 13.7 % (11.5-14.5) Platelet Count 505 x10^3/uL (140-400) Sodium Level 141 mmol/L (136-145) Potassium Level 3.6 mmol/L (3.5-5.1) Chloride Level 101 mmol/L (98-107) Carbon Dioxide Level 28 mmol/L (21-32) Anion Gap 12 (6-14) Blood Urea Nitrogen 31 mg/dL (8-26) Creatinine 2.1 mg/dL (0.7-1.3) Estimated GFR (Cockcroft-Gault) 31.2 Glucose Level 136 mg/dL (70-99) Calcium Level 9.4 mg/dL (8.5-10.1) Test 12/30/18 09:57 12/30/18 11:19 12/30/18 16:29 12/30/18 20:37 Activated Clotting Time 213 sec (92-181) Glucose (Fingerstick) 112 mg/dL (70-99) 111 mg/dL (70-99) 180 mg/dL (70-99) Test 12/31/18 09:57 12/31/18 11:26 Glucose (Fingerstick) 95 mg/dL (70-99) 114 mg/dL (70-99) Laboratory Tests Test 12/30/18 16:29 12/30/18 20:37 12/31/18 09:57 12/31/18 11:26 Glucose (Fingerstick) 111 mg/dL (70-99) 180 mg/dL (70-99) 95 mg/dL (70-99) 114 mg/dL (70-99) Medications Current Medications Insulin Human Lispro (HumaLOG) 0-9 UNITS TIDWMEALS SQ Last administered on 12/27 18:33; Start 12/27/18 at 17:00; Stop 12/28/18 at 07:59; Status DC Dextrose (Dextrose 50%-Water Syringe) 12.5 gm PRN Q15MIN PRN IV SEE COMMENTS; Start 12/27/18 at 16:45 Atorvastatin Calcium (Lipitor) 40 mg HS PO Last administered on 12/30/18at 20:52 ; Start 12/27/18 at 21:00 Metoprolol Succinate (Toprol Xl) 25 mg DAILY PO Last administered on 12/31/18 11:24; Start 12/28/18 at 09:00 Niacin (Slo-Niacin) 500 mg HS PO Last administered on 12/30/18 20:52; Start at 21:00 Vitamin D (Vitamin D3) 5,000 unit DAILY PO Last administered on 12/31/18 11:22 ; Start 12/28/18 at 09:00 Non-Formulary Medication (Dulaglutide (Trulicity)) 1.5 mg WEEKLY SQ ; Start 01/03 at 09:00; Status UNV Glimepiride (Amaryl) 4 mg BIDAC PO Last administered on 12/30/18at 17:08; Start 12/27/18 at 18:30 Hydrochlorothiazide (Hydrodiuril) 25 mg DAILY PO Last administered on 11:22; Start 12/28/18 at 09:00 Insulin Glargine (Lantus) 32 units QHS SQ Last administered on 12/30/18at 20:55 ; Start 12/27/18 at 21:00 Levothyroxine Sodium (Synthroid) 50 mcg DAILY06 PO Last administered on at 07:01; Start 12/28/18 at 06:00 Insulin Human Lispro (HumaLOG) 0-9 UNITS TIDACHC SQ Last administered on at 17:02; Start 12/28/18 at 11:30 Labetalol HCl (Normodyne Iv Push) 10 mg PRN Q2HR PRN IVP HYPERTENSION, SEE COMMENTS; Start 12/28/18 at 08:00 Acetaminophen (Tylenol) 500 mg PRN Q6HRS PRN PO MILD PAIN / TEMP; Start at 08:00 Acetaminophen/ Codeine Phosphate (Tylenol #3) 1 tab PRN Q6HRS PRN PO MODERATE PAIN; Start 12/28/18 at 08:00 Ondansetron HCl (Zofran) 4 mg PRN Q6HRS PRN IV NAUSEA/VOMITING; Start 12/28/18 at 08:00 Ondansetron HCl (Zofran Odt) 4 mg PRN Q6HRS PRN PO NAUSEA/VOMITING; Start 12/28 at 08:00 Sodium Chloride 1,000 ml @ 75 mls/hr 1X ONCE IV Last administered on at 15:23; Start 12/28/18 at 14:30; Stop 12/29/18 at 03:49; Status DC Sodium Chloride 500 ml @ 250 mls/hr 1X ONCE IV ; Start 12/29/18 at 11:00; Stop 12/29/18 at 12:51; Status DC Influenza Virus Vaccine (Afluria Trivalent [id number] Syringe) 0.5 ml ONCE ONCE VAX IM ; Start 12/29/18 at 10:00; Stop 12/29/18 at 10:01; Status DC Piperacillin Sod/ Tazobactam Sod (Zosyn Per Pharmacy) 1 each PRN DAILY PRN MC SEE COMMENTS; Start 12/29/18 at 11:45 Aspirin (Ecotrin) 81 mg DAILYWBKFT PO Last administered on 12/31/18at 11:26; Start 12/29/18 at 12:00 Piperacillin Sod/ Tazobactam Sod 3.375 gm/Sodium Chloride 50 ml @ 100 mls/hr Q6HRS IV Last administered on 12/31/18at 05:53; Start 12/29/18 at 12:00 Sodium Chloride 1,000 ml @ 75 mls/hr 1X ONCE IV Last administered on at 01:12; Start 12/30/18 at 00:00; Stop 12/30/18 at 13:19; Status DC Sodium Chloride 500 ml @ 250 mls/hr 1X ONCE IV Last administered on at 08:13; Start 12/30/18 at 09:30; Stop 12/30/18 at 11:29; Status DC Lactobacillus Rhamnosus (Culturelle) 1 cap BID PO Last administered on at 11:22; Start 12/29/18 at 21:00 Multivitamins (Thera M Plus) 1 tab DAILY PO Last administered on 12/31/18at 11: 22; Start 12/30/18 at 09:00 Linezolid/Dextrose 300 ml @ 300 mls/hr Q12HR IV Last administered on at 11:21; Start 12/29/18 at 15:00 Midazolam HCl (Versed) 5 mg STK-MED ONCE .ROUTE ; Start 12/30/18 at 08:07; Stop 12/30/18 at 08:08; Status DC Fentanyl Citrate (Fentanyl 2ml Vial) 100 mcg STK-MED ONCE .ROUTE ; Start at 08:07; Stop 12/30/18 at 08:08; Status DC Heparin Sodium (Porcine) (Heparin Sodium) 10,000 unit STK-MED ONCE .ROUTE ; Start 12/30/18 at 08:07; Stop 12/30/18 at 08:08; Status DC Iodixanol (Visipaque 320) 100 ml STK-MED ONCE .ROUTE ; Start 12/30/18 at 08:07; Stop 12/30/18 at 08:08; Status DC Lidocaine HCl (Lidocaine 1% 20ml Vial) 20 ml STK-MED ONCE .ROUTE ; Start at 08:07; Stop 12/30/18 at 08:08; Status DC Heparin Sodium/ Sodium Chloride 1,500 ml @ As Directed STK-MED ONCE .ROUTE ; Start 12/30/18 at 08:07; Stop 12/30/18 at 08:08; Status DC Heparin Sodium/ Sodium Chloride (HEPARIN for ARTERIAL LINE FLUSH) 1,000 unit 1X ONCE IART Last administered on 12/30/18at 10:53; Start 12/30/18 at 09:15; Stop 12/30/18 at 09:16; Status DC Midazolam HCl (Versed) 5 mg 1X ONCE IV Last administered on 12/30/18 11:01; Start 12/30/18 at 09:15; Stop 12/30/18 at 09:16; Status DC Fentanyl Citrate (Fentanyl 2ml Vial) 100 mcg 1X ONCE IV Last administered on 10:55; Start 12/30/18 at 09:15; Stop 12/30/18 at 09:16; Status DC Iodixanol (Visipaque 320) 100 ml 1X ONCE IART Last administered on 12/30/18 11:01; Start 12/30/18 at 09:15; Stop 12/30/18 at 09:16; Status DC Lidocaine HCl (Lidocaine 1% 20ml Vial) 20 ml 1X ONCE INJ Last administered on 12/30/18 11:01; Start 12/30/18 at 09:15; Stop 12/30/18 at 09:16; Status DC Iodixanol (Visipaque 320) 100 ml STK-MED ONCE .ROUTE ; Start 12/30/18 at 09:42; Stop 12/30/18 at 09:43; Status DC Heparin Sodium (Porcine) (Heparin Sodium) 6,000 unit 1X ONCE IV Last administered on 12/30/18 11:00; Start 12/30/18 at 09:16; Stop 12/30/18 at 10:06 ; Status DC Lidocaine HCl (Lidocaine 1% 20ml Vial) 20 ml STK-MED ONCE .ROUTE ; Start at 10:06; Stop 12/30/18 at 10:07; Status DC Nitroglycerin (Nitroglycerin) 200 mcg 1X ONCE IART Last administered on 11:01; Start 12/30/18 at 10:15; Stop 12/30/18 at 10:16; Status DC Protamine Sulfate (Protamine) 50 mg STK-MED ONCE IV ; Start 12/30/18 at 10:39; Stop 12/30/18 at 10:40; Status DC Protamine Sulfate (Protamine) 30 mg 1X ONCE IV Last administered on 12/30/18at 10:48; Start 12/30/18 at 10:48; Stop 12/30/18 at 10:58; Status DC Morphine Sulfate (Morphine Sulfate) 1 mg PRN Q10MIN PRN IV SEVERE PAIN; Start 12/31/18 at 07:00; Stop 01/01/19 at 06:59 Ringer's Solution 1,000 ml @ 30 mls/hr Q24H IV ; Start 12/31/18 at 07:00; Stop 12/31/18 at 18:59 Lidocaine HCl (Xylocaine-Mpf 1% 2ml Vial) 2 ml PRN 1X PRN ID PRIOR TO IV START ; Start 12/31/18 at 07:00; Stop 01/01/19 at 06:59 Hydromorphone HCl (Dilaudid) 0.5 mg PRN Q10MIN PRN IV SEV PAIN, Second choice; Start 12/31/18 at 07:00; Stop 01/01/19 at 06:59 Prochlorperazine Edisylate (Compazine) 5 mg PACU PRN PRN IV NAUSEA, MRX1 Last administered on 12/31/18at 09:31; Start 12/31/18 at 07:00; Stop 01/01/19 at 06:59 Lidocaine HCl (Xylocaine 1% Pf 30ml Vial) 30 ml STK-MED ONCE .ROUTE Last administered on 12/31/18at 07:18; Start 12/31/18 at 07:02; Stop 12/31/18 at 07:03 ; Status DC Lidocaine HCl (Xylocaine 1% Pf 30ml Vial) 30 ml STK-MED ONCE .ROUTE ; Start at 07:02; Stop 12/31/18 at 07:03; Status DC Bupivacaine HCl (Sensorcaine Mpf 0.5%) 30 ml STK-MED ONCE .ROUTE Last administered on 12/31/18at 07:18; Start 12/31/18 at 07:02; Stop 12/31/18 at 07:03 ; Status DC Ondansetron HCl (Zofran) 4 mg STK-MED ONCE .ROUTE ; Start 12/31/18 at 07:05; Stop 12/31/18 at 07:06; Status DC Lidocaine HCl (Lidocaine Pf 2% Vial) 5 ml STK-MED ONCE .ROUTE ; Start 12/31/18 at 07:05; Stop 12/31/18 at 07:06; Status DC Propofol 20 ml @ As Directed STK-MED ONCE IV ; Start 12/31/18 at 07:05; Stop at 07:06; Status DC Famotidine (Pepcid Vial) 20 mg STK-MED ONCE .ROUTE ; Start 12/31/18 at 07:05; Stop 12/31/18 at 07:06; Status DC Dexamethasone Sodium Phosphate (Decadron) 20 mg STK-MED ONCE .ROUTE ; Start at 07:05; Stop 12/31/18 at 07:06; Status DC Fentanyl Citrate (Fentanyl 2ml Vial) 100 mcg STK-MED ONCE .ROUTE ; Start at 07:06; Stop 12/31/18 at 07:07; Status DC Desflurane (Suprane) 60 ml STK-MED ONCE IH ; Start 12/31/18 at 08:45; Stop 12/31 at 08:46; Status DC Prochlorperazine Edisylate (Compazine) 10 mg STK-MED ONCE .ROUTE ; Start at 08:57; Stop 12/31/18 at 08:58; Status DC Ondansetron HCl (Zofran) 4 mg STK-MED ONCE .ROUTE ; Start 12/31/18 at 09:39; Stop 12/31/18 at 09:40; Status DC Active Scripts Active Reported Cipro (Ciprofloxacin Hcl) 500 Mg Tablet 1 Tab PO BID Niaspan (Niacin) 500 Mg Tab.er.24h 500 Mg PO HS Hydrochlorothiazide Tablet (Hydrochlorothiazide) 12.5 Mg Tablet 25 Mg PO DAILY Metoprolol Succinate ( Xl ) (Metoprolol Succinate) 25 Mg Tab.er.24h 25 Mg PO DAILY Lipitor (Atorvastatin Calcium) 40 Mg Tablet 40 Mg PO HS Trulicity (Dulaglutide) 1.5 Mg/0.5 Ml Pen.injctr 1.5 Mg SQ WEEKLY [place] Solostar (Insulin Glargine,Hum.rec.anlog) 300 Unit/1 Ml Insuln.pen 40 Unit SQ HS Aspirin 81 Mg Tab.chew 81 Mg PO BID Glimepiride 4 Mg Tablet 4 Mg PO BIDAC Synthroid (Levothyroxine Sodium) 50 Mcg Tablet 50 Mcg PO DAILYAC Vitamin D3 (Cholecalciferol (Vitamin D3)) 5,000 Unit Tablet 5,000 Unit PO DAILY Vitals/I & O Vital Sign - Last 24 Hours 12/30/18 12/30/18 12/30/18 12/30/18 11:45 12:00 12:15 12:45 Pulse 78 76 84 75 Resp 18 18 18 18 B/P (MAP) 125/65 (85) 128/68 (88) 127/69 (88) 136/71 (92) Pulse Ox 94 98 99 94 O2 Delivery Room Air Room Air Room Air Room Air 12/30/18 12/30/18 12/30/18 12/30/18 13:15 13:45 15:00 19:00 Temp 99.0 98.1 99.0 98.1 Pulse 72 88 75 82 Resp 18 18 16 18 B/P (MAP) 128/58 (81) 94/49 (64) 140/71 (94) 85/34 (51) Pulse Ox 99 96 96 90 O2 Delivery Room Air Room Air Room Air Room Air 12/30/18 12/30/18 12/31/18 12/31/18 20:03 23:00 03:00 07:04 Temp 98.4 98.3 97.7 98.4 98.3 97.7 Pulse 84 80 75 Resp 18 18 20 B/P (MAP) 111/44 (66) 114/50 (71) 158/71 Pulse Ox 92 93 99 O2 Delivery Room Air Room Air Room Air Room Air 12/31/18 12/31/18 12/31/18 12/31/18 08:55 09:00 09:10 09:25 Temp 97.7 97.7 97.7 97.7 97.7 97.7 Pulse 83 80 79 Resp 16 18 18 B/P (MAP) 144/74 144/66 149/62 Pulse Ox 99 93 94 O2 Delivery Simple Mask Room Air Simple Mask Room Air O2 Flow Rate 10 10 10 12/31/18 12/31/18 12/31/18 09:40 09:55 11:24 Temp 97.7 97.7 97.7 97.7 Pulse 76 78 80 Resp 18 20 B/P (MAP) 147/70 152/70 165/89 Pulse Ox 93 94 O2 Delivery Room Air Room Air Intake and Output 12/30/18 12/30/18 12/31/18 15:00 23:00 07:00 Intake Total 250 ml Output Total 450 ml Balance 250 ml -450 ml MARY CARMEN DE GUZMAN MD Dec 31, 2018 11:55
--- NOTE | 2018-12-31 11:59 | PDOC ---
Infectious Disease Note Subjective Subjective feeling good ROS ROS no n/v/d/sob Vital Sign Vital Signs Vital Signs Date Time Temp Pulse Resp B/P (MAP) Pulse Ox O2 Delivery O2 Flow Rate FiO2 12/31/18 11:24 80 165/89 12/31/18 09:55 97.7 20 94 Room Air 97.7 12/31/18 09:10 10 Physical Exam PHYSICAL EXAM GENERAL: Alert, oriented gentleman, not in distress. VITAL SIGNS: Stable, afebrile. HEENT: NAD. NECK: Supple, no JVP, no lymphadenopathy. LUNGS: Clear. HEART: S1, S2 regular. ABDOMEN: Benign. EXTREMITIES: Left lower extremity ulcer debrided, rt closed TMA, dressing not opened NEUROLOGIC: Alert, awake and appropriate. No focal neurologic deficit. Labs Lab Laboratory Tests Test 12/30/18 16:29 12/30/18 20:37 12/31/18 09:57 12/31/18 11:26 Glucose (Fingerstick) 111 mg/dL (70-99) 180 mg/dL (70-99) 95 mg/dL (70-99) 114 mg/dL (70-99) Objective Assessment 1. Right foot cellulitis. 2. Right foot all toes gangrene. s/p TMA 3. Leukocytosis. 4. Diabetes. 5. Coronary artery disease. 6. Renal insufficiency. 7. Left big toe ulcer s/p debridement Plan Plan of Care cont antibiotics cont supportive care d/w son JUAN DAVID CALLAHAN MD Dec 31, 2018 11:59
--- NOTE | 2018-12-31 12:00 | NUR ---
SW following for discharge planning. Discussed with RN, pt will be switched to PO abx and will follow with wound care center at [facility]. Pt does not have a primary care doctor and does not have a permanent location to stay. SW will continue to follow. Addendum: 12/31/18 at 1203 by ARON ZARAGOZA AMEND charted on incorrect patient. Disregard this note.
--- NOTE | 2018-12-31 15:37 | NUR ---
SW following for discharge planning. Discussed with RN, pt had surgery today. SW will continue to follow for PT/OT recommendations upon discharge.
[2018-12-31] MEDS: NIACIN ER 500 MG TABLET.ER PO SCH (21:05)
[2018-12-31] MEDS: INSULIN GLARGINE 300 UNITS/3 ML INSULN.PEN. SQ SCH (21:15)
[2018-12-31] MEDS: ATORVASTATIN CALCIUM 40 MG TABLET. PO SCH (21:18)
[2019-01-01] MEDS: PIPERACILLIN/TAZOBACTAM 3.375 GM in IV NORMAL SALINE 50ML 50 ML IV SCH ×5 (00:15→23:00)
[2019-01-01 03:06] VITALS: BP 126/69
[2019-01-01] MEDS: LEVOTHYROXINE 50 MCG TABLET PO SCH (06:00)
[2019-01-01 07:00] VITALS: BP 120/48
[2019-01-01] MEDS: INSULIN LISPRO 300 UNITS/3 ML INSULN.PEN. SQ SCH ×4 (07:30→21:13)
--- NOTE | 2019-01-01 09:21 | PDOC ---
Infectious Disease Note Subjective Subjective feeling good ROS ROS no n/v/d/sob Vital Sign Vital Signs Vital Signs Date Time Temp Pulse Resp B/P (MAP) Pulse Ox O2 Delivery O2 Flow Rate FiO2 01/01/19 07:00 97.7 74 18 120/48 (72) 98 Room Air 97.7 12/31/18 09:10 10 Physical Exam PHYSICAL EXAM GENERAL: Alert, oriented gentleman, not in distress. VITAL SIGNS: Stable, afebrile. HEENT: NAD. NECK: Supple, no JVP, no lymphadenopathy. LUNGS: Clear. HEART: S1, S2 regular. ABDOMEN: Benign. EXTREMITIES: Left lower extremity ulcer debrided, rt closed TMA, dressing not opened NEUROLOGIC: Alert, awake and appropriate. No focal neurologic deficit. Labs Lab Laboratory Tests Test 12/31/18 09:57 12/31/18 11:26 12/31/18 17:11 12/31/18 21:09 Glucose (Fingerstick) 95 mg/dL (70-99) 114 mg/dL (70-99) 229 mg/dL (70-99) 204 mg/dL (70-99) Objective Assessment 1. Right foot cellulitis. 2. Right foot all toes gangrene. s/p TMA 3. Leukocytosis. 4. Diabetes. 5. Coronary artery disease. 6. Renal insufficiency. 7. Left big toe ulcer s/p debridement Plan Plan of Care cont antibiotics cont supportive care d/w vascular surgery JUAN DAVID CALLAHAN MD Jan 01, 2019 09:21
[2019-01-01] MEDS: METOPROLOL SUCC 24HR ER 25 MG TAB.ER.24H. PO SCH (09:40)
[2019-01-01] MEDS: hydroCHLOROthiazide 25 MG TABLET PO SCH (09:41)
[2019-01-01] MEDS: LACTOBACILLUS RHAMNOSUS GG 1 CAPSULE. PO SCH ×2 (09:41→21:09)
[2019-01-01] MEDS: ASPIRIN ENTERIC COATED 81 MG TABLET.DR. PO SCH (09:41)
[2019-01-01] MEDS: MULTIVITAMIN with MINERAL TABLET. PO SCH (09:41)
[2019-01-01] MEDS: CHOLECALCIFEROL (VITAMIN D3) 5,000 UNIT CAPSULE PO SCH (09:41)
[2019-01-01] MEDS: GLIMEPIRIDE 2 MG TABLET. PO SCH ×2 (09:48→16:54)
--- NOTE | 2019-01-01 09:51 | PDOC ---
PROGRESS NOTES Subjective Subjective Patient seen and examined in room. No complaints. Objective Objective Vital Signs Date Time Temp Pulse Resp B/P (MAP) Pulse Ox O2 Delivery O2 Flow Rate FiO2 01/01/19 07:00 97.7 74 18 120/48 (72) 98 Room Air 97.7 12/31/18 09:10 10 Intake and Output 01/01/19 06:59 Intake Total 1480 ml Output Total 1110 ml Balance 370 ml Intake Oral 1080 ml IV Total 400 ml Output Urine Total 1100 ml Estimated Blood Loss 10 ml # Voids 1 # Bowel Movements 1 Physical Exam Physical Exam Awake and alert Right TMA site incision dry and intact, foot warm, mild swelling and erythema in forefoot. Biphasic Doppler PT and DP. Left toe with small open ulcer, clean, foot warm. 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 Yung IVF hydration ordered and NPO after MN ordered Repeat labs in am 01/04/2019 Comment Review of Relevant I have reviewed the following items magalie (where applicable) has been applied. Labs Laboratory Tests Test 12/30/18 09:57 12/30/18 11:19 12/30/18 16:29 12/30/18 20:37 Activated Clotting Time 213 sec (92-181) Glucose (Fingerstick) 112 mg/dL (70-99) 111 mg/dL (70-99) 180 mg/dL (70-99) Test 12/31/18 09:57 12/31/18 11:26 12/31/18 17:11 12/31/18 21:09 Glucose (Fingerstick) 95 mg/dL (70-99) 114 mg/dL (70-99) 229 mg/dL (70-99) 204 mg/dL (70-99) Laboratory Tests Test 12/31/18 09:57 12/31/18 11:26 12/31/18 17:11 12/31/18 21:09 Glucose (Fingerstick) 95 mg/dL (70-99) 114 mg/dL (70-99) 229 mg/dL (70-99) 204 mg/dL (70-99) Medications Current Medications Insulin Human Lispro (HumaLOG) 0-9 UNITS TIDWMEALS SQ Last administered on 12/27 18:33; Start 12/27/18 at 17:00; Stop 12/28/18 at 07:59; Status DC Dextrose (Dextrose 50%-Water Syringe) 12.5 gm PRN Q15MIN PRN IV SEE COMMENTS; Start 12/27/18 at 16:45 Atorvastatin Calcium (Lipitor) 40 mg HS PO Last administered on 12/31/18 21:18 ; Start 12/27/18 at 21:00 Metoprolol Succinate (Toprol Xl) 25 mg DAILY PO Last administered on 12/31/18 11:24; Start 12/28/18 at 09:00 Niacin (Slo-Niacin) 500 mg HS PO Last administered on 12/31/18 21:05; Start at 21:00 Vitamin D (Vitamin D3) 5,000 unit DAILY PO Last administered on 12/31/18 11:22 ; Start 12/28/18 at 09:00 Non-Formulary Medication (Dulaglutide (Trulicity)) 1.5 mg WEEKLY SQ ; Start 01/03 at 09:00; Status UNV Glimepiride (Amaryl) 4 mg BIDAC PO Last administered on 12/31/18 17:30; Start 12/27/18 at 18:30 Hydrochlorothiazide (Hydrodiuril) 25 mg DAILY PO Last administered on 11:22; Start 12/28/18 at 09:00 Insulin Glargine (Lantus) 32 units QHS SQ Last administered on 12/31/18 21:15 ; Start 12/27/18 at 21:00 Levothyroxine Sodium (Synthroid) 50 mcg DAILY06 PO Last administered on 06:00; Start 12/28/18 at 06:00 Insulin Human Lispro (HumaLOG) 0-9 UNITS TIDACHC SQ Last administered on 2/28/ 19at 21:12; Start 12/28/18 at 11:30 Labetalol HCl (Normodyne Iv Push) 10 mg PRN Q2HR PRN IVP HYPERTENSION, SEE COMMENTS; Start 12/28/18 at 08:00 Acetaminophen (Tylenol) 500 mg PRN Q6HRS PRN PO MILD PAIN / TEMP; Start at 08:00 Acetaminophen/ Codeine Phosphate (Tylenol #3) 1 tab PRN Q6HRS PRN PO MODERATE PAIN; Start 12/28/18 at 08:00 Ondansetron HCl (Zofran) 4 mg PRN Q6HRS PRN IV NAUSEA/VOMITING; Start 12/28/18 at 08:00 Ondansetron HCl (Zofran Odt) 4 mg PRN Q6HRS PRN PO NAUSEA/VOMITING; Start 12/28 at 08:00 Sodium Chloride 1,000 ml @ 75 mls/hr 1X ONCE IV Last administered on at 15:23; Start 12/28/18 at 14:30; Stop 12/29/18 at 03:49; Status DC Sodium Chloride 500 ml @ 250 mls/hr 1X ONCE IV ; Start 12/29/18 at 11:00; Stop 12/29/18 at 12:51; Status DC Influenza Virus Vaccine (Afluria Trivalent [id number] Syringe) 0.5 ml ONCE ONCE VAX IM ; Start 12/29/18 at 10:00; Stop 12/29/18 at 10:01; Status DC Piperacillin Sod/ Tazobactam Sod (Zosyn Per Pharmacy) 1 each PRN DAILY PRN MC SEE COMMENTS; Start 12/29/18 at 11:45 Aspirin (Ecotrin) 81 mg DAILYWBKFT PO Last administered on 12/31/18at 11:26; Start 12/29/18 at 12:00 Piperacillin Sod/ Tazobactam Sod 3.375 gm/Sodium Chloride 50 ml @ 100 mls/hr Q6HRS IV Last administered on 01/01/19at 06:01; Start 12/29/18 at 12:00 Sodium Chloride 1,000 ml @ 75 mls/hr 1X ONCE IV Last administered on at 01:12; Start 12/30/18 at 00:00; Stop 12/30/18 at 13:19; Status DC Sodium Chloride 500 ml @ 250 mls/hr 1X ONCE IV Last administered on at 08:13; Start 12/30/18 at 09:30; Stop 12/30/18 at 11:29; Status DC Lactobacillus Rhamnosus (Culturelle) 1 cap BID PO Last administered on at 21:05; Start 12/29/18 at 21:00 Multivitamins (Thera M Plus) 1 tab DAILY PO Last administered on 12/31/18at 11: 22; Start 12/30/18 at 09:00 Linezolid/Dextrose 300 ml @ 300 mls/hr Q12HR IV Last administered on at 21:04; Start 12/29/18 at 15:00 Midazolam HCl (Versed) 5 mg STK-MED ONCE .ROUTE ; Start 12/30/18 at 08:07; Stop 12/30/18 at 08:08; Status DC Fentanyl Citrate (Fentanyl 2ml Vial) 100 mcg STK-MED ONCE .ROUTE ; Start at 08:07; Stop 12/30/18 at 08:08; Status DC Heparin Sodium (Porcine) (Heparin Sodium) 10,000 unit STK-MED ONCE .ROUTE ; Start 12/30/18 at 08:07; Stop 12/30/18 at 08:08; Status DC Iodixanol (Visipaque 320) 100 ml STK-MED ONCE .ROUTE ; Start 12/30/18 at 08:07; Stop 12/30/18 at 08:08; Status DC Lidocaine HCl (Lidocaine 1% 20ml Vial) 20 ml STK-MED ONCE .ROUTE ; Start at 08:07; Stop 12/30/18 at 08:08; Status DC Heparin Sodium/ Sodium Chloride 1,500 ml @ As Directed STK-MED ONCE .ROUTE ; Start 12/30/18 at 08:07; Stop 12/30/18 at 08:08; Status DC Heparin Sodium/ Sodium Chloride (HEPARIN for ARTERIAL LINE FLUSH) 1,000 unit 1X ONCE IART Last administered on 12/30/18at 10:53; Start 12/30/18 at 09:15; Stop 12/30/18 at 09:16; Status DC Midazolam HCl (Versed) 5 mg 1X ONCE IV Last administered on 12/30/18 11:01; Start 12/30/18 at 09:15; Stop 12/30/18 at 09:16; Status DC Fentanyl Citrate (Fentanyl 2ml Vial) 100 mcg 1X ONCE IV Last administered on at 10:55; Start 12/30/18 at 09:15; Stop 12/30/18 at 09:16; Status DC Iodixanol (Visipaque 320) 100 ml 1X ONCE IART Last administered on 12/30/18 11:01; Start 12/30/18 at 09:15; Stop 12/30/18 at 09:16; Status DC Lidocaine HCl (Lidocaine 1% 20ml Vial) 20 ml 1X ONCE INJ Last administered on 12/30/18 11:01; Start 12/30/18 at 09:15; Stop 12/30/18 at 09:16; Status DC Iodixanol (Visipaque 320) 100 ml STK-MED ONCE .ROUTE ; Start 12/30/18 at 09:42; Stop 12/30/18 at 09:43; Status DC Heparin Sodium (Porcine) (Heparin Sodium) 6,000 unit 1X ONCE IV Last administered on 12/30/18 11:00; Start 12/30/18 at 09:16; Stop 12/30/18 at 10:06 ; Status DC Lidocaine HCl (Lidocaine 1% 20ml Vial) 20 ml STK-MED ONCE .ROUTE ; Start at 10:06; Stop 12/30/18 at 10:07; Status DC Nitroglycerin (Nitroglycerin) 200 mcg 1X ONCE IART Last administered on 11:01; Start 12/30/18 at 10:15; Stop 12/30/18 at 10:16; Status DC Protamine Sulfate (Protamine) 50 mg STK-MED ONCE IV ; Start 12/30/18 at 10:39; Stop 12/30/18 at 10:40; Status DC Protamine Sulfate (Protamine) 30 mg 1X ONCE IV Last administered on 12/30/18at 10:48; Start 12/30/18 at 10:48; Stop 12/30/18 at 10:58; Status DC Morphine Sulfate (Morphine Sulfate) 1 mg PRN Q10MIN PRN IV SEVERE PAIN; Start 12/31/18 at 07:00; Stop 01/01/19 at 06:59; Status DC Ringer's Solution 1,000 ml @ 30 mls/hr Q24H IV ; Start 12/31/18 at 07:00; Stop 12/31/18 at 18:59; Status DC Lidocaine HCl (Xylocaine-Mpf 1% 2ml Vial) 2 ml PRN 1X PRN ID PRIOR TO IV START ; Start 12/31/18 at 07:00; Stop 01/01/19 at 06:59; Status DC Hydromorphone HCl (Dilaudid) 0.5 mg PRN Q10MIN PRN IV SEV PAIN, Second choice; Start 12/31/18 at 07:00; Stop 01/01/19 at 06:59; Status DC Prochlorperazine Edisylate (Compazine) 5 mg PACU PRN PRN IV NAUSEA, MRX1 Last administered on 12/31/18at 09:31; Start 12/31/18 at 07:00; Stop 01/01/19 at 06:59 ; Status DC Lidocaine HCl (Xylocaine 1% Pf 30ml Vial) 30 ml STK-MED ONCE .ROUTE Last administered on 12/31/18at 07:18; Start 12/31/18 at 07:02; Stop 12/31/18 at 07:03 ; Status DC Lidocaine HCl (Xylocaine 1% Pf 30ml Vial) 30 ml STK-MED ONCE .ROUTE ; Start at 07:02; Stop 12/31/18 at 07:03; Status DC Bupivacaine HCl (Sensorcaine Mpf 0.5%) 30 ml STK-MED ONCE .ROUTE Last administered on 12/31/18at 07:18; Start 12/31/18 at 07:02; Stop 12/31/18 at 07:03 ; Status DC Ondansetron HCl (Zofran) 4 mg STK-MED ONCE .ROUTE ; Start 12/31/18 at 07:05; Stop 12/31/18 at 07:06; Status DC Lidocaine HCl (Lidocaine Pf 2% Vial) 5 ml STK-MED ONCE .ROUTE ; Start 12/31/18 at 07:05; Stop 12/31/18 at 07:06; Status DC Propofol 20 ml @ As Directed STK-MED ONCE IV ; Start 12/31/18 at 07:05; Stop at 07:06; Status DC Famotidine (Pepcid Vial) 20 mg STK-MED ONCE .ROUTE ; Start 12/31/18 at 07:05; Stop 12/31/18 at 07:06; Status DC Dexamethasone Sodium Phosphate (Decadron) 20 mg STK-MED ONCE .ROUTE ; Start at 07:05; Stop 12/31/18 at 07:06; Status Cancel Fentanyl Citrate (Fentanyl 2ml Vial) 100 mcg STK-MED ONCE .ROUTE ; Start at 07:06; Stop 12/31/18 at 07:07; Status DC Desflurane (Suprane) 60 ml STK-MED ONCE IH ; Start 12/31/18 at 08:45; Stop 12/31 at 08:46; Status DC Prochlorperazine Edisylate (Compazine) 10 mg STK-MED ONCE .ROUTE ; Start at 08:57; Stop 12/31/18 at 08:58; Status DC Ondansetron HCl (Zofran) 4 mg STK-MED ONCE .ROUTE ; Start 12/31/18 at 09:39; Stop 12/31/18 at 09:40; Status DC Sodium Chloride 1,000 ml @ 100 mls/hr Q10H IV ; Start 01/03/19 at 12:00 Active Scripts Active Reported Cipro (Ciprofloxacin Hcl) 500 Mg Tablet 1 Tab PO BID Niaspan (Niacin) 500 Mg Tab.er.24h 500 Mg PO HS Hydrochlorothiazide Tablet (Hydrochlorothiazide) 12.5 Mg Tablet 25 Mg PO DAILY Metoprolol Succinate ( Xl ) (Metoprolol Succinate) 25 Mg Tab.er.24h 25 Mg PO DAILY Lipitor (Atorvastatin Calcium) 40 Mg Tablet 40 Mg PO HS Trulicity (Dulaglutide) 1.5 Mg/0.5 Ml Pen.injctr 1.5 Mg SQ WEEKLY [place] Solostar (Insulin Glargine,Hum.rec.anlog) 300 Unit/1 Ml Insuln.pen 40 Unit SQ HS Aspirin 81 Mg Tab.chew 81 Mg PO BID Glimepiride 4 Mg Tablet 4 Mg PO BIDAC Synthroid (Levothyroxine Sodium) 50 Mcg Tablet 50 Mcg PO DAILYAC Vitamin D3 (Cholecalciferol (Vitamin D3)) 5,000 Unit Tablet 5,000 Unit PO DAILY Vitals/I & O Vital Sign - Last 24 Hours 12/31/18 12/31/18 12/31/18 12/31/18 09:55 10:15 10:30 10:45 Temp 97.7 98.7 97.7 98.7 Pulse 78 81 78 80 Resp 20 18 18 18 B/P (MAP) 152/70 155/75 (101) 154/71 (98) 160/80 (106) Pulse Ox 94 93 94 95 O2 Delivery Room Air Room Air Room Air Room Air 12/31/18 12/31/18 12/31/18 12/31/18 11:00 11:00 11:15 11:24 Pulse 83 81 80 Resp 18 B/P (MAP) 166/79 (108) 165/89 (114) 165/89 Pulse Ox 94 94 O2 Delivery Room Air Room Air Room Air 12/31/18 12/31/18 12/31/18 12/31/18 11:45 12:45 15:22 19:15 Temp 97.9 97.3 97.9 97.3 Pulse 87 87 71 75 Resp 18 17 18 B/P (MAP) 164/76 (105) 164/77 (106) 138/68 (91) 140/66 (90) Pulse Ox 92 92 93 93 O2 Delivery Room Air Room Air Room Air Room Air 12/31/18 12/31/18 01/01/19 01/01/19 20:02 23:09 03:06 07:00 Temp 98.8 98.3 97.7 98.8 98.3 97.7 Pulse 74 83 74 Resp 18 18 B/P (MAP) 125/55 (78) 126/69 (88) 120/48 (72) Pulse Ox 94 95 98 O2 Delivery Room Air Room Air Room Air Room Air Intake and Output 12/31/18 12/31/18 01/01/19 14:59 22:59 06:59 Intake Total 750 ml 250 ml 480 ml Output Total 10 ml 600 ml 500 ml Balance 740 ml -350 ml -20 ml CHRISTIE ARECHIGA APRN Jan 01, 2019 09:51
--- NOTE | 2019-01-01 10:05 | NUR ---
SW following. Discussed with RN, pt is from home with sister and has a very involved son. Pt is confused currently. RN advised pt is having a procedure on Friday (01/04/19). PT/OT needs to be reordered. RN notified. SW will continue to follow.
[2019-01-01 11:00] VITALS: BP 103/37
--- NOTE | 2019-01-01 13:44 | NUR ---
Wound Care Wound care follow up for post op assessment. R TMA and left great toe pictured, measured and redressed. TMA with Xeroform and Kerlix, recommend to change daily. Left great toe packed with Iodoflex and covered with bandaid, recommend to change every 2-3 days. No other wounds noted on full skin inspection. Pt was very restless during visit and tried to remove gown and blankets multiple times. Pt educated on PU prevention. No other wounds noted on full skin inspection. WC will continue to follow for possible changes.
[2019-01-01 15:00] VITALS: BP 119/56
--- NOTE | 2019-01-01 15:54 | PDOC ---
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 --> s/ p perc revascularization yesterday --> 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 severe peripheral vascular disease DM2 prior CVA, vasculopathy, his family had stopped his aspirin and substituted tylenol obese, BMI 33 History of Present Illness History of Present Illness Right foot with surgical dressings status post ransmetatarsal amputation Patient resting comfortably in bed Continue current insulin regimen seems to be working Continue current antibiotics with Zyvox and Zosyn further recommendations as per vascular discussed with son at bedside Blood pressure fairly controlled, add labetalol when necessary Avoid Nephrotoxins-creatinine 1.9 in this diabetic with PVD Vitals Vitals Vital Signs Date Time Temp Pulse Resp B/P (MAP) Pulse Ox O2 Delivery O2 Flow Rate FiO2 01/01/19 11:00 97.9 83 18 103/37 (59) 95 Room Air 97.9 12/31/18 09:10 10 Physical Exam Physical Exam GENERAL: Alert, oriented gentleman, not in distress. VITAL SIGNS: Stable, afebrile. HEENT: NAD. NECK: Supple, no JVP, no lymphadenopathy. LUNGS: Clear. HEART: S1, S2 regular. ABDOMEN: Benign. EXTREMITIES: Left lower extremity ulcer debrided, rt closed TMA, dressing not opened NEUROLOGIC: Alert, awake and appropriate. No focal neurologic deficit. General: Alert, Oriented X3, Cooperative, No acute distress Heart: Regular rate, Normal S1, Normal S2, No murmurs Abdomen: Soft, No tenderness Extremities: No clubbing, No cyanosis, Other (Right foot edema up to mid armijo) Skin: Other (Left foot with hard calloused ulcer to left great toe medial plantar surface. Right foot with dry, hard eschar to all 5 toes, more prominent on plantar surface. There is no drainage throughout. The right foot had erythema and edema extending just above ankle. ) Labs LABS Laboratory Tests Test 12/31/18 17:11 12/31/18 21:09 01/01/19 07:36 01/01/19 11:18 Glucose (Fingerstick) 229 mg/dL (70-99) 204 mg/dL (70-99) 129 mg/dL (70-99) 234 mg/dL (70-99) Review of Systems Review of Systems no n.vd. Comment Review of Relevant I have reviewed the following items magalie (where applicable) has been applied. Labs Laboratory Tests Test 12/30/18 16:29 12/30/18 20:37 12/31/18 09:57 12/31/18 11:26 Glucose (Fingerstick) 111 mg/dL (70-99) 180 mg/dL (70-99) 95 mg/dL (70-99) 114 mg/dL (70-99) Test 12/31/18 17:11 12/31/18 21:09 01/01/19 07:36 01/01/19 11:18 Glucose (Fingerstick) 229 mg/dL (70-99) 204 mg/dL (70-99) 129 mg/dL (70-99) 234 mg/dL (70-99) Laboratory Tests Test 12/31/18 17:11 12/31/18 21:09 01/01/19 07:36 01/01/19 11:18 Glucose (Fingerstick) 229 mg/dL (70-99) 204 mg/dL (70-99) 129 mg/dL (70-99) 234 mg/dL (70-99) Medications Current Medications Insulin Human Lispro (HumaLOG) 0-9 UNITS TIDWMEALS SQ Last administered on 12/27at 18:33; Start 12/27/18 at 17:00; Stop 12/28/18 at 07:59; Status DC Dextrose (Dextrose 50%-Water Syringe) 12.5 gm PRN Q15MIN PRN IV SEE COMMENTS; Start 12/27/18 at 16:45 Atorvastatin Calcium (Lipitor) 40 mg HS PO Last administered on 12/31/18at 21:18 ; Start 12/27/18 at 21:00 Metoprolol Succinate (Toprol Xl) 25 mg DAILY PO Last administered on 01/01/19at 09:40; Start 12/28/18 at 09:00 Niacin (Slo-Niacin) 500 mg HS PO Last administered on 12/31/18at 21:05; Start at 21:00 Vitamin D (Vitamin D3) 5,000 unit DAILY PO Last administered on 01/01/19at 09:41 ; Start 12/28/18 at 09:00 Non-Formulary Medication (Dulaglutide (Trulicity)) 1.5 mg WEEKLY SQ ; Start 01/03 at 09:00; Status UNV Glimepiride (Amaryl) 4 mg BIDAC PO Last administered on 01/01/19at 09:48; Start 12/27/18 at 18:30 Hydrochlorothiazide (Hydrodiuril) 25 mg DAILY PO Last administered on 01/01/19at 09:41; Start 12/28/18 at 09:00 Insulin Glargine (Lantus) 32 units QHS SQ Last administered on 12/31/18at 21:15 ; Start 12/27/18 at 21:00 Levothyroxine Sodium (Synthroid) 50 mcg DAILY06 PO Last administered on at 06:00; Start 12/28/18 at 06:00 Insulin Human Lispro (HumaLOG) 0-9 UNITS TIDACHC SQ Last administered on at 12:48; Start 12/28/18 at 11:30 Labetalol HCl (Normodyne Iv Push) 10 mg PRN Q2HR PRN IVP HYPERTENSION, SEE COMMENTS; Start 12/28/18 at 08:00 Acetaminophen (Tylenol) 500 mg PRN Q6HRS PRN PO MILD PAIN / TEMP; Start at 08:00 Acetaminophen/ Codeine Phosphate (Tylenol #3) 1 tab PRN Q6HRS PRN PO MODERATE PAIN; Start 12/28/18 at 08:00 Ondansetron HCl (Zofran) 4 mg PRN Q6HRS PRN IV NAUSEA/VOMITING; Start 12/28/18 at 08:00 Ondansetron HCl (Zofran Odt) 4 mg PRN Q6HRS PRN PO NAUSEA/VOMITING; Start 12/28 at 08:00 Sodium Chloride 1,000 ml @ 75 mls/hr 1X ONCE IV Last administered on at 15:23; Start 12/28/18 at 14:30; Stop 12/29/18 at 03:49; Status DC Sodium Chloride 500 ml @ 250 mls/hr 1X ONCE IV ; Start 12/29/18 at 11:00; Stop 12/29/18 at 12:51; Status DC Influenza Virus Vaccine (Afluria Trivalent [id number] Syringe) 0.5 ml ONCE ONCE VAX IM ; Start 12/29/18 at 10:00; Stop 12/29/18 at 10:01; Status DC Piperacillin Sod/ Tazobactam Sod (Zosyn Per Pharmacy) 1 each PRN DAILY PRN MC SEE COMMENTS; Start 12/29/18 at 11:45 Aspirin (Ecotrin) 81 mg DAILYWBKFT PO Last administered on 01/01/19at 09:41; Start 12/29/18 at 12:00 Piperacillin Sod/ Tazobactam Sod 3.375 gm/Sodium Chloride 50 ml @ 100 mls/hr Q6HRS IV Last administered on 01/01/19at 12:50; Start 12/29/18 at 12:00 Sodium Chloride 1,000 ml @ 75 mls/hr 1X ONCE IV Last administered on at 01:12; Start 12/30/18 at 00:00; Stop 12/30/18 at 13:19; Status DC Sodium Chloride 500 ml @ 250 mls/hr 1X ONCE IV Last administered on at 08:13; Start 12/30/18 at 09:30; Stop 12/30/18 at 11:29; Status DC Lactobacillus Rhamnosus (Culturelle) 1 cap BID PO Last administered on at 09:41; Start 12/29/18 at 21:00 Multivitamins (Thera M Plus) 1 tab DAILY PO Last administered on 01/01/19at 09:41 ; Start 12/30/18 at 09:00 Linezolid/Dextrose 300 ml @ 300 mls/hr Q12HR IV Last administered on 01/01/19at 09:42; Start 12/29/18 at 15:00 Midazolam HCl (Versed) 5 mg STK-MED ONCE .ROUTE ; Start 12/30/18 at 08:07; Stop 12/30/18 at 08:08; Status DC Fentanyl Citrate (Fentanyl 2ml Vial) 100 mcg STK-MED ONCE .ROUTE ; Start at 08:07; Stop 12/30/18 at 08:08; Status DC Heparin Sodium (Porcine) (Heparin Sodium) 10,000 unit STK-MED ONCE .ROUTE ; Start 12/30/18 at 08:07; Stop 12/30/18 at 08:08; Status DC Iodixanol (Visipaque 320) 100 ml STK-MED ONCE .ROUTE ; Start 12/30/18 at 08:07; Stop 12/30/18 at 08:08; Status DC Lidocaine HCl (Lidocaine 1% 20ml Vial) 20 ml STK-MED ONCE .ROUTE ; Start at 08:07; Stop 12/30/18 at 08:08; Status DC Heparin Sodium/ Sodium Chloride 1,500 ml @ As Directed STK-MED ONCE .ROUTE ; Start 12/30/18 at 08:07; Stop 12/30/18 at 08:08; Status DC Heparin Sodium/ Sodium Chloride (HEPARIN for ARTERIAL LINE FLUSH) 1,000 unit 1X ONCE IART Last administered on 12/30/18at 10:53; Start 12/30/18 at 09:15; Stop 12/30/18 at 09:16; Status DC Midazolam HCl (Versed) 5 mg 1X ONCE IV Last administered on 12/30/18at 11:01; Start 12/30/18 at 09:15; Stop 12/30/18 at 09:16; Status DC Fentanyl Citrate (Fentanyl 2ml Vial) 100 mcg 1X ONCE IV Last administered on at 10:55; Start 12/30/18 at 09:15; Stop 12/30/18 at 09:16; Status DC Iodixanol (Visipaque 320) 100 ml 1X ONCE IART Last administered on 12/30/18at 11:01; Start 12/30/18 at 09:15; Stop 12/30/18 at 09:16; Status DC Lidocaine HCl (Lidocaine 1% 20ml Vial) 20 ml 1X ONCE INJ Last administered on 12/30/18at 11:01; Start 12/30/18 at 09:15; Stop 12/30/18 at 09:16; Status DC Iodixanol (Visipaque 320) 100 ml STK-MED ONCE .ROUTE ; Start 12/30/18 at 09:42; Stop 12/30/18 at 09:43; Status DC Heparin Sodium (Porcine) (Heparin Sodium) 6,000 unit 1X ONCE IV Last administered on 12/30/18at 11:00; Start 12/30/18 at 09:16; Stop 12/30/18 at 10:06 ; Status DC Lidocaine HCl (Lidocaine 1% 20ml Vial) 20 ml STK-MED ONCE .ROUTE ; Start at 10:06; Stop 12/30/18 at 10:07; Status DC Nitroglycerin (Nitroglycerin) 200 mcg 1X ONCE IART Last administered on at 11:01; Start 12/30/18 at 10:15; Stop 12/30/18 at 10:16; Status DC Protamine Sulfate (Protamine) 50 mg STK-MED ONCE IV ; Start 12/30/18 at 10:39; Stop 12/30/18 at 10:40; Status DC Protamine Sulfate (Protamine) 30 mg 1X ONCE IV Last administered on 12/30/18at 10:48; Start 12/30/18 at 10:48; Stop 12/30/18 at 10:58; Status DC Morphine Sulfate (Morphine Sulfate) 1 mg PRN Q10MIN PRN IV SEVERE PAIN; Start 12/31/18 at 07:00; Stop 01/01/19 at 06:59; Status DC Ringer's Solution 1,000 ml @ 30 mls/hr Q24H IV ; Start 12/31/18 at 07:00; Stop 12/31/18 at 18:59; Status DC Lidocaine HCl (Xylocaine-Mpf 1% 2ml Vial) 2 ml PRN 1X PRN ID PRIOR TO IV START ; Start 12/31/18 at 07:00; Stop 01/01/19 at 06:59; Status DC Hydromorphone HCl (Dilaudid) 0.5 mg PRN Q10MIN PRN IV SEV PAIN, Second choice; Start 12/31/18 at 07:00; Stop 01/01/19 at 06:59; Status DC Prochlorperazine Edisylate (Compazine) 5 mg PACU PRN PRN IV NAUSEA, MRX1 Last administered on 12/31/18at 09:31; Start 12/31/18 at 07:00; Stop 01/01/19 at 06:59 ; Status DC Lidocaine HCl (Xylocaine 1% Pf 30ml Vial) 30 ml STK-MED ONCE .ROUTE Last administered on 12/31/18at 07:18; Start 12/31/18 at 07:02; Stop 12/31/18 at 07:03 ; Status DC Lidocaine HCl (Xylocaine 1% Pf 30ml Vial) 30 ml STK-MED ONCE .ROUTE ; Start at 07:02; Stop 12/31/18 at 07:03; Status DC Bupivacaine HCl (Sensorcaine Mpf 0.5%) 30 ml STK-MED ONCE .ROUTE Last administered on 12/31/18at 07:18; Start 12/31/18 at 07:02; Stop 12/31/18 at 07:03 ; Status DC Ondansetron HCl (Zofran) 4 mg STK-MED ONCE .ROUTE ; Start 12/31/18 at 07:05; Stop 12/31/18 at 07:06; Status DC Lidocaine HCl (Lidocaine Pf 2% Vial) 5 ml STK-MED ONCE .ROUTE ; Start 12/31/18 at 07:05; Stop 12/31/18 at 07:06; Status DC Propofol 20 ml @ As Directed STK-MED ONCE IV ; Start 12/31/18 at 07:05; Stop at 07:06; Status DC Famotidine (Pepcid Vial) 20 mg STK-MED ONCE .ROUTE ; Start 12/31/18 at 07:05; Stop 12/31/18 at 07:06; Status DC Dexamethasone Sodium Phosphate (Decadron) 20 mg STK-MED ONCE .ROUTE ; Start at 07:05; Stop 12/31/18 at 07:06; Status Cancel Fentanyl Citrate (Fentanyl 2ml Vial) 100 mcg STK-MED ONCE .ROUTE ; Start at 07:06; Stop 12/31/18 at 07:07; Status DC Desflurane (Suprane) 60 ml STK-MED ONCE IH ; Start 12/31/18 at 08:45; Stop 12/31 at 08:46; Status DC Prochlorperazine Edisylate (Compazine) 10 mg STK-MED ONCE .ROUTE ; Start at 08:57; Stop 12/31/18 at 08:58; Status DC Ondansetron HCl (Zofran) 4 mg STK-MED ONCE .ROUTE ; Start 12/31/18 at 09:39; Stop 12/31/18 at 09:40; Status DC Sodium Chloride 1,000 ml @ 100 mls/hr Q10H IV ; Start 01/03/19 at 12:00 Active Scripts Active Reported Cipro (Ciprofloxacin Hcl) 500 Mg Tablet 1 Tab PO BID Niaspan (Niacin) 500 Mg Tab.er.24h 500 Mg PO HS Hydrochlorothiazide Tablet (Hydrochlorothiazide) 12.5 Mg Tablet 25 Mg PO DAILY Metoprolol Succinate ( Xl ) (Metoprolol Succinate) 25 Mg Tab.er.24h 25 Mg PO DAILY Lipitor (Atorvastatin Calcium) 40 Mg Tablet 40 Mg PO HS Trulicity (Dulaglutide) 1.5 Mg/0.5 Ml Pen.injctr 1.5 Mg SQ WEEKLY Toujeo Solostar (Insulin Glargine,Hum.rec.anlog) 300 Unit/1 Ml Insuln.pen 40 Unit SQ HS Aspirin 81 Mg Tab.chew 81 Mg PO BID Glimepiride 4 Mg Tablet 4 Mg PO BIDAC Synthroid (Levothyroxine Sodium) 50 Mcg Tablet 50 Mcg PO DAILYAC Vitamin D3 (Cholecalciferol (Vitamin D3)) 5,000 Unit Tablet 5,000 Unit PO DAILY Vitals/I & O Vital Sign - Last 24 Hours 12/31/18 12/31/18 12/31/18 01/01/19 19:15 20:02 23:09 03:06 Temp 97.3 98.8 98.3 97.3 98.8 98.3 Pulse 75 74 83 Resp 18 18 18 B/P (MAP) 140/66 (90) 125/55 (78) 126/69 (88) Pulse Ox 93 94 95 O2 Delivery Room Air Room Air Room Air Room Air 01/01/19 01/01/19 01/01/19 01/01/19 07:00 07:45 09:40 11:00 Temp 97.7 97.9 97.7 97.9 Pulse 74 74 83 Resp 18 18 B/P (MAP) 120/48 (72) 120/48 103/37 (59) Pulse Ox 98 95 O2 Delivery Room Air Room Air Room Air Intake and Output 12/31/18 12/31/18 01/01/19 15:00 23:00 07:00 Intake Total 750 ml 250 ml 480 ml Output Total 10 ml 600 ml 500 ml Balance 740 ml -350 ml -20 ml KARLA RODRIGUEZ MD Jan 01, 2019 15:54
[2019-01-01] MEDS: NIACIN ER 500 MG TABLET.ER PO SCH (21:09)
[2019-01-01] MEDS: ATORVASTATIN CALCIUM 40 MG TABLET. PO SCH (21:13)
[2019-01-01] MEDS: INSULIN GLARGINE 300 UNITS/3 ML INSULN.PEN. SQ SCH (21:16)
--- NOTE | 2019-01-01 22:50 | NUR ---
Pt. noted to be anxious and after frequent attempts of getting out of bed, Dr. Yoana alarcon, orders received,will continue to monitor.
[2019-01-01 23:00] VITALS: BP 145/62
[2019-01-01] MEDS: LORazepam 0.5 MG TABLET PO PRN (23:00)
[2019-01-02 03:00] VITALS: BP 148/52
[2019-01-02] MEDS: LEVOTHYROXINE 50 MCG TABLET PO SCH (05:50)
[2019-01-02] MEDS: PIPERACILLIN/TAZOBACTAM 3.375 GM in IV NORMAL SALINE 50ML 50 ML IV SCH ×3 (05:50→18:05)
--- NOTE | 2019-01-02 06:53 | PDOC ---
Infectious Disease Note Subjective Subjective feeling good ROS ROS no n/v/d/sob Vital Sign Vital Signs Vital Signs Date Time Temp Pulse Resp B/P (MAP) Pulse Ox O2 Delivery O2 Flow Rate FiO2 01/02/19 03:18 16 Room Air 01/02/19 03:00 98.8 78 148/52 (84) 98 98.8 01/01/19 20:15 10.0 Physical Exam PHYSICAL EXAM GENERAL: Alert, oriented gentleman, not in distress. VITAL SIGNS: Stable, afebrile. HEENT: NAD. NECK: Supple, no JVP, no lymphadenopathy. LUNGS: Clear. HEART: S1, S2 regular. ABDOMEN: Benign. EXTREMITIES: Left lower extremity ulcer debrided, rt closed TMA, dressing not opened NEUROLOGIC: Alert, awake and appropriate. No focal neurologic deficit. Labs Lab Laboratory Tests Test 01/01/19 07:36 01/01/19 11:18 01/01/19 16:27 01/01/19 21:06 Glucose (Fingerstick) 129 mg/dL (70-99) 234 mg/dL (70-99) 133 mg/dL (70-99) 232 mg/dL (70-99) Objective Assessment 1. Right foot cellulitis. 2. Right foot all toes gangrene. s/p TMA 3. Leukocytosis. 4. Diabetes. 5. Coronary artery disease. 6. Renal insufficiency. 7. Left big toe ulcer s/p debridement Plan Plan of Care cont antibiotics cont supportive care d/w vascular surgery JUAN DAVID CALLAHAN MD Jan 02, 2019 06:53
[2019-01-02 07:00] VITALS: BP 105/52
[2019-01-02] MEDS: GLIMEPIRIDE 2 MG TABLET. PO SCH ×2 (07:30→17:03)
[2019-01-02] MEDS: INSULIN LISPRO 300 UNITS/3 ML INSULN.PEN. SQ SCH ×4 (07:30→21:00)
[2019-01-02] MEDS: CHOLECALCIFEROL (VITAMIN D3) 5,000 UNIT CAPSULE PO SCH (08:42)
[2019-01-02] MEDS: LACTOBACILLUS RHAMNOSUS GG 1 CAPSULE. PO SCH ×2 (08:42→21:51)
[2019-01-02] MEDS: MULTIVITAMIN with MINERAL TABLET. PO SCH (08:42)
[2019-01-02] MEDS: ASPIRIN ENTERIC COATED 81 MG TABLET.DR. PO SCH (08:42)
[2019-01-02 11:00] VITALS: BP 118/64
--- NOTE | 2019-01-02 12:13 | PDOC ---
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 --> s/ p perc revascularization yesterday --> 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 severe peripheral vascular disease DM2 prior CVA, vasculopathy, his family had stopped his aspirin and substituted tylenol obese, BMI 33 History of Present Illness History of Present Illness Right foot with surgical dressings status post amputation Has been oob with assist, Continue insulin Continue current antibiotics further recommendations as per vascular discussed with son at bedside Blood pressure fairly controlled, add labetalol when necessary Vitals Vitals Vital Signs Date Time Temp Pulse Resp B/P (MAP) Pulse Ox O2 Delivery O2 Flow Rate FiO2 01/02/19 08:15 Room Air 01/02/19 07:00 97.9 65 18 105/52 (69) 96 97.9 01/01/19 20:15 10.0 Physical Exam Physical Exam GENERAL: Alert, oriented gentleman, not in distress. VITAL SIGNS: Stable, afebrile. HEENT: NAD. NECK: Supple, no JVP, no lymphadenopathy. LUNGS: Clear. HEART: S1, S2 regular. ABDOMEN: Benign. EXTREMITIES: Left lower extremity ulcer debrided, rt closed TMA, dressing not opened NEUROLOGIC: Alert, awake and appropriate. No focal neurologic deficit. General: Alert, Oriented X3, Cooperative, No acute distress Heart: Regular rate, Normal S1, Normal S2, No murmurs Abdomen: Soft, No tenderness Extremities: No clubbing, No cyanosis, Other (Right foot edema up to mid [place]ijo) Skin: Other (Left foot with hard calloused ulcer to left great toe medial plantar surface. Right foot with dry, hard eschar to all 5 toes, more prominent on plantar surface. There is no drainage throughout. The right foot had erythema and edema extending just above ankle. ) Labs LABS Laboratory Tests Test 01/01/19 16:27 01/01/19 21:06 01/02/19 08:16 01/02/19 08:43 Glucose (Fingerstick) 133 mg/dL (70-99) 232 mg/dL (70-99) 64 mg/dL (70-99) 64 mg/dL (70-99) Test 01/02/19 09:23 01/02/19 11:51 Glucose (Fingerstick) 129 mg/dL (70-99) 192 mg/dL (70-99) Review of Systems Review of Systems no n.v.d str ok Comment Review of Relevant I have reviewed the following items magalie (where applicable) has been applied. Labs Laboratory Tests Test 12/31/18 17:11 12/31/18 21:09 01/01/19 07:36 01/01/19 11:18 Glucose (Fingerstick) 229 mg/dL (70-99) 204 mg/dL (70-99) 129 mg/dL (70-99) 234 mg/dL (70-99) Test 01/01/19 16:27 01/01/19 21:06 01/02/19 08:16 01/02/19 08:43 Glucose (Fingerstick) 133 mg/dL (70-99) 232 mg/dL (70-99) 64 mg/dL (70-99) 64 mg/dL (70-99) Test 01/02/19 09:23 01/02/19 11:51 Glucose (Fingerstick) 129 mg/dL (70-99) 192 mg/dL (70-99) Laboratory Tests Test 01/01/19 16:27 01/01/19 21:06 01/02/19 08:16 01/02/19 08:43 Glucose (Fingerstick) 133 mg/dL (70-99) 232 mg/dL (70-99) 64 mg/dL (70-99) 64 mg/dL (70-99) Test 01/02/19 09:23 01/02/19 11:51 Glucose (Fingerstick) 129 mg/dL (70-99) 192 mg/dL (70-99) Medications Current Medications Insulin Human Lispro (HumaLOG) 0-9 UNITS TIDWMEALS SQ Last administered on 12/27at 18:33; Start 12/27/18 at 17:00; Stop 12/28/18 at 07:59; Status DC Dextrose (Dextrose 50%-Water Syringe) 12.5 gm PRN Q15MIN PRN IV SEE COMMENTS; Start 12/27/18 at 16:45 Atorvastatin Calcium (Lipitor) 40 mg HS PO Last administered on 01/01/19at 21:13 ; Start 12/27/18 at 21:00 Metoprolol Succinate (Toprol Xl) 25 mg DAILY PO Last administered on 01/01/19 09:40; Start 12/28/18 at 09:00 Niacin (Slo-Niacin) 500 mg HS PO Last administered on 01/01/19 21:09; Start at 21:00 Vitamin D (Vitamin D3) 5,000 unit DAILY PO Last administered on 01/02/19 08:42 ; Start 12/28/18 at 09:00 Non-Formulary Medication (Dulaglutide (Trulicity)) 1.5 mg WEEKLY SQ ; Start 01/03 at 09:00; Status UNV Glimepiride (Amaryl) 4 mg BIDAC PO Last administered on 01/01/19 16:54; Start 12/27/18 at 18:30 Hydrochlorothiazide (Hydrodiuril) 25 mg DAILY PO Last administered on 01/01/19 09:41; Start 12/28/18 at 09:00 Insulin Glargine (Lantus) 32 units QHS SQ Last administered on 01/01/19 21:16; Start 12/27/18 at 21:00 Levothyroxine Sodium (Synthroid) 50 mcg DAILY06 PO Last administered on 05:50; Start 12/28/18 at 06:00 Insulin Human Lispro (HumaLOG) 0-9 UNITS TIDACHC SQ Last administered on 21:13; Start 12/28/18 at 11:30 Labetalol HCl (Normodyne Iv Push) 10 mg PRN Q2HR PRN IVP HYPERTENSION, SEE COMMENTS; Start 12/28/18 at 08:00 Acetaminophen (Tylenol) 500 mg PRN Q6HRS PRN PO MILD PAIN / TEMP; Start at 08:00 Acetaminophen/ Codeine Phosphate (Tylenol #3) 1 tab PRN Q6HRS PRN PO MODERATE PAIN Last administered on 01/02/19 02:15; Start 12/28/18 at 08:00 Ondansetron HCl (Zofran) 4 mg PRN Q6HRS PRN IV NAUSEA/VOMITING; Start 12/28/18 at 08:00 Ondansetron HCl (Zofran Odt) 4 mg PRN Q6HRS PRN PO NAUSEA/VOMITING; Start 12/28 at 08:00 Sodium Chloride 1,000 ml @ 75 mls/hr 1X ONCE IV Last administered on at 15:23; Start 12/28/18 at 14:30; Stop 12/29/18 at 03:49; Status DC Sodium Chloride 500 ml @ 250 mls/hr 1X ONCE IV ; Start 12/29/18 at 11:00; Stop 12/29/18 at 12:51; Status DC Influenza Virus Vaccine (Afluria Trivalent [id number] Syringe) 0.5 ml ONCE ONCE VAX IM ; Start 12/29/18 at 10:00; Stop 12/29/18 at 10:01; Status DC Piperacillin Sod/ Tazobactam Sod (Zosyn Per Pharmacy) 1 each PRN DAILY PRN MC SEE COMMENTS; Start 12/29/18 at 11:45 Aspirin (Ecotrin) 81 mg DAILYWBKFT PO Last administered on 01/02/19at 08:42; Start 12/29/18 at 12:00 Piperacillin Sod/ Tazobactam Sod 3.375 gm/Sodium Chloride 50 ml @ 100 mls/hr Q6HRS IV Last administered on 01/02/19at 05:50; Start 12/29/18 at 12:00 Sodium Chloride 1,000 ml @ 75 mls/hr 1X ONCE IV Last administered on at 01:12; Start 12/30/18 at 00:00; Stop 12/30/18 at 13:19; Status DC Sodium Chloride 500 ml @ 250 mls/hr 1X ONCE IV Last administered on at 08:13; Start 12/30/18 at 09:30; Stop 12/30/18 at 11:29; Status DC Lactobacillus Rhamnosus (Culturelle) 1 cap BID PO Last administered on at 08:42; Start 12/29/18 at 21:00 Multivitamins (Thera M Plus) 1 tab DAILY PO Last administered on 01/02/19at 08:42 ; Start 12/30/18 at 09:00 Linezolid/Dextrose 300 ml @ 300 mls/hr Q12HR IV Last administered on 01/02/19at 08:43; Start 12/29/18 at 15:00 Midazolam HCl (Versed) 5 mg STK-MED ONCE .ROUTE ; Start 12/30/18 at 08:07; Stop 12/30/18 at 08:08; Status DC Fentanyl Citrate (Fentanyl 2ml Vial) 100 mcg STK-MED ONCE .ROUTE ; Start at 08:07; Stop 12/30/18 at 08:08; Status DC Heparin Sodium (Porcine) (Heparin Sodium) 10,000 unit STK-MED ONCE .ROUTE ; Start 12/30/18 at 08:07; Stop 12/30/18 at 08:08; Status DC Iodixanol (Visipaque 320) 100 ml STK-MED ONCE .ROUTE ; Start 12/30/18 at 08:07; Stop 12/30/18 at 08:08; Status DC Lidocaine HCl (Lidocaine 1% 20ml Vial) 20 ml STK-MED ONCE .ROUTE ; Start at 08:07; Stop 12/30/18 at 08:08; Status DC Heparin Sodium/ Sodium Chloride 1,500 ml @ As Directed STK-MED ONCE .ROUTE ; Start 12/30/18 at 08:07; Stop 12/30/18 at 08:08; Status DC Heparin Sodium/ Sodium Chloride (HEPARIN for ARTERIAL LINE FLUSH) 1,000 unit 1X ONCE IART Last administered on 12/30/18at 10:53; Start 12/30/18 at 09:15; Stop 12/30/18 at 09:16; Status DC Midazolam HCl (Versed) 5 mg 1X ONCE IV Last administered on 12/30/18at 11:01; Start 12/30/18 at 09:15; Stop 12/30/18 at 09:16; Status DC Fentanyl Citrate (Fentanyl 2ml Vial) 100 mcg 1X ONCE IV Last administered on at 10:55; Start 12/30/18 at 09:15; Stop 12/30/18 at 09:16; Status DC Iodixanol (Visipaque 320) 100 ml 1X ONCE IART Last administered on 12/30/18at 11:01; Start 12/30/18 at 09:15; Stop 12/30/18 at 09:16; Status DC Lidocaine HCl (Lidocaine 1% 20ml Vial) 20 ml 1X ONCE INJ Last administered on 12/30/18at 11:01; Start 12/30/18 at 09:15; Stop 12/30/18 at 09:16; Status DC Iodixanol (Visipaque 320) 100 ml STK-MED ONCE .ROUTE ; Start 12/30/18 at 09:42; Stop 12/30/18 at 09:43; Status DC Heparin Sodium (Porcine) (Heparin Sodium) 6,000 unit 1X ONCE IV Last administered on 12/30/18at 11:00; Start 12/30/18 at 09:16; Stop 12/30/18 at 10:06 ; Status DC Lidocaine HCl (Lidocaine 1% 20ml Vial) 20 ml STK-MED ONCE .ROUTE ; Start at 10:06; Stop 12/30/18 at 10:07; Status DC Nitroglycerin (Nitroglycerin) 200 mcg 1X ONCE IART Last administered on at 11:01; Start 12/30/18 at 10:15; Stop 12/30/18 at 10:16; Status DC Protamine Sulfate (Protamine) 50 mg STK-MED ONCE IV ; Start 12/30/18 at 10:39; Stop 12/30/18 at 10:40; Status DC Protamine Sulfate (Protamine) 30 mg 1X ONCE IV Last administered on 12/30/18at 10:48; Start 12/30/18 at 10:48; Stop 12/30/18 at 10:58; Status DC Morphine Sulfate (Morphine Sulfate) 1 mg PRN Q10MIN PRN IV SEVERE PAIN; Start 12/31/18 at 07:00; Stop 01/01/19 at 06:59; Status DC Ringer's Solution 1,000 ml @ 30 mls/hr Q24H IV ; Start 12/31/18 at 07:00; Stop 12/31/18 at 18:59; Status DC Lidocaine HCl (Xylocaine-Mpf 1% 2ml Vial) 2 ml PRN 1X PRN ID PRIOR TO IV START ; Start 12/31/18 at 07:00; Stop 01/01/19 at 06:59; Status DC Hydromorphone HCl (Dilaudid) 0.5 mg PRN Q10MIN PRN IV SEV PAIN, Second choice; Start 12/31/18 at 07:00; Stop 01/01/19 at 06:59; Status DC Prochlorperazine Edisylate (Compazine) 5 mg PACU PRN PRN IV NAUSEA, MRX1 Last administered on 12/31/18at 09:31; Start 12/31/18 at 07:00; Stop 01/01/19 at 06:59 ; Status DC Lidocaine HCl (Xylocaine 1% Pf 30ml Vial) 30 ml STK-MED ONCE .ROUTE Last administered on 12/31/18at 07:18; Start 12/31/18 at 07:02; Stop 12/31/18 at 07:03 ; Status DC Lidocaine HCl (Xylocaine 1% Pf 30ml Vial) 30 ml STK-MED ONCE .ROUTE ; Start at 07:02; Stop 12/31/18 at 07:03; Status DC Bupivacaine HCl (Sensorcaine Mpf 0.5%) 30 ml STK-MED ONCE .ROUTE Last administered on 12/31/18at 07:18; Start 12/31/18 at 07:02; Stop 12/31/18 at 07:03 ; Status DC Ondansetron HCl (Zofran) 4 mg STK-MED ONCE .ROUTE ; Start 12/31/18 at 07:05; Stop 12/31/18 at 07:06; Status DC Lidocaine HCl (Lidocaine Pf 2% Vial) 5 ml STK-MED ONCE .ROUTE ; Start 12/31/18 at 07:05; Stop 12/31/18 at 07:06; Status DC Propofol 20 ml @ As Directed STK-MED ONCE IV ; Start 12/31/18 at 07:05; Stop at 07:06; Status DC Famotidine (Pepcid Vial) 20 mg STK-MED ONCE .ROUTE ; Start 12/31/18 at 07:05; Stop 12/31/18 at 07:06; Status DC Dexamethasone Sodium Phosphate (Decadron) 20 mg STK-MED ONCE .ROUTE ; Start at 07:05; Stop 12/31/18 at 07:06; Status Cancel Fentanyl Citrate (Fentanyl 2ml Vial) 100 mcg STK-MED ONCE .ROUTE ; Start at 07:06; Stop 12/31/18 at 07:07; Status DC Desflurane (Suprane) 60 ml STK-MED ONCE IH ; Start 12/31/18 at 08:45; Stop 12/31 at 08:46; Status DC Prochlorperazine Edisylate (Compazine) 10 mg STK-MED ONCE .ROUTE ; Start at 08:57; Stop 12/31/18 at 08:58; Status DC Ondansetron HCl (Zofran) 4 mg STK-MED ONCE .ROUTE ; Start 12/31/18 at 09:39; Stop 12/31/18 at 09:40; Status DC Sodium Chloride 1,000 ml @ 100 mls/hr Q10H IV ; Start 01/03/19 at 12:00 Lorazepam (Ativan) 0.5 mg PRN Q6HRS PRN PO ANXIETY / AGITATION Last administered on 01/01/19at 23:00; Start 01/01/19 at 23:00 Active Scripts Active Reported Cipro (Ciprofloxacin Hcl) 500 Mg Tablet 1 Tab PO BID Niaspan (Niacin) 500 Mg Tab.er.24h 500 Mg PO HS Hydrochlorothiazide Tablet (Hydrochlorothiazide) 12.5 Mg Tablet 25 Mg PO DAILY Metoprolol Succinate ( Xl ) (Metoprolol Succinate) 25 Mg Tab.er.24h 25 Mg PO DAILY Lipitor (Atorvastatin Calcium) 40 Mg Tablet 40 Mg PO HS Trulicity (Dulaglutide) 1.5 Mg/0.5 Ml Pen.injctr 1.5 Mg SQ WEEKLY [place] Solostar (Insulin Glargine,Hum.rec.anlog) 300 Unit/1 Ml Insuln.pen 40 Unit SQ HS Aspirin 81 Mg Tab.chew 81 Mg PO BID Glimepiride 4 Mg Tablet 4 Mg PO BIDAC Synthroid (Levothyroxine Sodium) 50 Mcg Tablet 50 Mcg PO DAILYAC Vitamin D3 (Cholecalciferol (Vitamin D3)) 5,000 Unit Tablet 5,000 Unit PO DAILY Vitals/I & O Vital Sign - Last 24 Hours 01/01/19 01/01/19 01/01/19 01/02/19 15:00 20:15 23:00 02:15 Temp 97.4 98.0 97.4 98.0 Pulse 78 53 Resp 18 18 18 B/P (MAP) 119/56 (77) 145/62 (89) Pulse Ox 94 93 O2 Delivery Room Air Room Air Room Air Room Air O2 Flow Rate 10.0 01/02/19 01/02/19 01/02/19 01/02/19 03:00 03:18 07:00 08:15 Temp 98.8 97.9 98.8 97.9 Pulse 78 65 Resp 18 16 18 B/P (MAP) 148/52 (84) 105/52 (69) Pulse Ox 98 96 O2 Delivery Room Air Room Air Room Air Room Air Intake and Output 01/01/19 01/01/19 01/02/19 15:00 23:00 07:00 Output Total 100 ml 100 ml Balance -100 ml -100 ml KARLA RODRIGUEZ MD Jan 02, 2019 12:12
--- NOTE | 2019-01-02 13:19 | PDOC ---
Provider Note Provider Note AF VSS awake and alert right TMA incision intact with sutures, mild improving erythema on dorsal foot, minimal bloody drainage left 1st toe ulcer A/P s/p right leg arterial angioplasty and closed TMA - dry dressing to the right foot daily, dressing care to left toe ulcer - plan angiogram with possible left leg angioplasty on friday with Dr. Yung - aspirin and plavix - antibiotics per BRADLEY CALERO MD Jan 02, 2019 13:19
[2019-01-02] MEDS: hydroCHLOROthiazide 25 MG TABLET PO SCH (13:37)
[2019-01-02] MEDS: METOPROLOL SUCC 24HR ER 25 MG TAB.ER.24H. PO SCH (13:38)
[2019-01-02] MEDS: CLOPIDOGREL BISULFATE 75 MG TABLET PO SCH (13:38)
[2019-01-02 15:00] VITALS: BP 139/70
[2019-01-02 19:15] VITALS: BP 119/48
[2019-01-02] MEDS: ATORVASTATIN CALCIUM 40 MG TABLET. PO SCH (21:51)
[2019-01-02] MEDS: NIACIN ER 500 MG TABLET.ER PO SCH (21:51)
[2019-01-02] MEDS: INSULIN GLARGINE 300 UNITS/3 ML INSULN.PEN. SQ SCH (22:05)
[2019-01-02 23:18] VITALS: BP 126/52
[2019-01-03] MEDS: PIPERACILLIN/TAZOBACTAM 3.375 GM in IV NORMAL SALINE 50ML 50 ML IV SCH ×4 (00:06→18:02)
[2019-01-03 03:04] VITALS: BP 150/67
[2019-01-03] MEDS: LEVOTHYROXINE 50 MCG TABLET PO SCH (06:38)
[2019-01-03 07:00] VITALS: BP 124/106
[2019-01-03] MEDS: GLIMEPIRIDE 2 MG TABLET. PO SCH ×2 (07:30→18:02)
[2019-01-03] MEDS: INSULIN LISPRO 300 UNITS/3 ML INSULN.PEN. SQ SCH ×4 (07:30→21:00)
[2019-01-03] MEDS ORDERED: NON FORMULARY ITEM (Dulaglutide (Trulicity) 1.5 MG) SQ SCH (09:00)
[2019-01-03] MEDS: LACTOBACILLUS RHAMNOSUS GG 1 CAPSULE. PO SCH ×2 (09:29→22:12)
[2019-01-03] MEDS: METOPROLOL SUCC 24HR ER 25 MG TAB.ER.24H. PO SCH (09:29)
[2019-01-03] MEDS: CHOLECALCIFEROL (VITAMIN D3) 5,000 UNIT CAPSULE PO SCH (09:30)
[2019-01-03] MEDS: MULTIVITAMIN with MINERAL TABLET. PO SCH (09:30)
[2019-01-03] MEDS: hydroCHLOROthiazide 25 MG TABLET PO SCH (09:30)
[2019-01-03] MEDS: ASPIRIN ENTERIC COATED 81 MG TABLET.DR. PO SCH (09:30)
[2019-01-03] MEDS: CLOPIDOGREL BISULFATE 75 MG TABLET PO SCH (09:30)
--- NOTE | 2019-01-03 09:59 | PDOC ---
Infectious Disease Note Subjective Subjective c/o pain on ball of right foot Also says has diarrhea Appetite good Denies cramps/bloating/N/V or loss of appetite No F/C/S ROS ROS per HPI otherwise neg Vital Sign Vital Signs Vital Signs Date Time Temp Pulse Resp B/P (MAP) Pulse Ox O2 Delivery O2 Flow Rate FiO2 01/03/19 09:29 66 124/106 01/03/19 07:00 98.0 18 96 Room Air 98.0 Physical Exam PHYSICAL EXAM GENERAL: Sitting in the chair, alert, NAD HEENT: Oral cavity clear NECK: Supple LUNGS: Clear. HEART: S1, S2 ABDOMEN: Obese, soft, NT, BS present EXTREMITIES: 2+ edema BLE. Right foot bandaged NEUROLOGIC: Alert, responds appropriately PIV ok Labs Lab Laboratory Tests Test 01/02/19 11:51 01/02/19 16:22 01/02/19 20:53 01/03/19 07:37 Glucose (Fingerstick) 192 mg/dL (70-99) 145 mg/dL (70-99) 126 mg/dL (70-99) 77 mg/dL (70-99) Objective Assessment Right foot cellulitis. Right foot all toes gangrene. s/p right leg angioplasty and TMA w/ primary closure on 12/31. Left big toe ulcer s/p debridement to level of bone and tendon on 12/31 Leukocytosis. Diabetes. Coronary artery disease. Renal insufficiency. Diarrhea Plan Plan of Care Zyvox, Zosyn Probiotics Wound care C. diff PCR pending Possible left leg angioplasty on Friday with Dr. Yung Supportive care D/w nursing Attending Co-Sign The patient was seen and interviewed as well as examined at the bedside. The chart was reviewed. The case was discussed. Agree with the plan of care. PAUL CRAIG APRN Jan 03, 2019 09:59 JUAN DAVID CALLAHAN MD Jan 03, 2019 11:31
[2019-01-03 11:00] VITALS: BP 148/67
[2019-01-03] MEDS ORDERED: IV NORMAL SALINE 1000ML BAG 1,000 ML IV SCH (12:00)
[2019-01-03] MEDS: IV NORMAL SALINE 1000ML BAG 1,000 ML IV SCH (12:18)
--- NOTE | 2019-01-03 12:38 | PDOC ---
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 --> s/ p perc revascularization yesterday --> 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 severe peripheral vascular disease DM2 prior CVA, vasculopathy, his family had stopped his aspirin and substituted tylenol obese, BMI 33 History of Present Illness History of Present Illness Right foot with surgical dressings status post amputation Has been oob with assist, Continue insulin Continue current antibiotics further recommendations as per vascular discussed with son at bedside Blood pressure fairly controlled, add labetalol when necessary Vitals Vitals Vital Signs Date Time Temp Pulse Resp B/P (MAP) Pulse Ox O2 Delivery O2 Flow Rate FiO2 01/03/19 09:29 66 124/106 01/03/19 07:00 98.0 18 96 Room Air 98.0 Physical Exam Physical Exam GENERAL: Sitting in the chair, alert, NAD HEENT: Oral cavity clear NECK: Supple LUNGS: Clear. HEART: S1, S2 ABDOMEN: Obese, soft, NT, BS present EXTREMITIES: 2+ edema BLE. Right foot bandaged NEUROLOGIC: Alert, responds appropriately PIV ok General: Alert, Oriented X3, Cooperative, No acute distress Heart: Regular rate, Normal S1, Normal S2, No murmurs Abdomen: Soft, No tenderness Extremities: No clubbing, No cyanosis, Other (Right foot edema up to mid armijo) Skin: Other (Left foot with hard calloused ulcer to left great toe medial plantar surface. Right foot with dry, hard eschar to all 5 toes, more prominent on plantar surface. There is no drainage throughout. The right foot had erythema and edema extending just above ankle. ) Labs LABS Laboratory Tests Test 01/02/19 16:22 01/02/19 20:53 01/03/19 07:37 Glucose (Fingerstick) 145 mg/dL (70-99) 126 mg/dL (70-99) 77 mg/dL (70-99) Review of Systems Review of Systems some confusion today, able to orient fully no n.v.d Comment Review of Relevant I have reviewed the following items magalie (where applicable) has been applied. Labs Laboratory Tests Test 01/01/19 16:27 01/01/19 21:06 01/02/19 08:16 01/02/19 08:43 Glucose (Fingerstick) 133 mg/dL (70-99) 232 mg/dL (70-99) 64 mg/dL (70-99) 64 mg/dL (70-99) Test 01/02/19 09:23 01/02/19 11:51 01/02/19 16:22 01/02/19 20:53 Glucose (Fingerstick) 129 mg/dL (70-99) 192 mg/dL (70-99) 145 mg/dL (70-99) 126 mg/dL (70-99) Test 01/03/19 07:37 Glucose (Fingerstick) 77 mg/dL (70-99) Laboratory Tests Test 01/02/19 16:22 01/02/19 20:53 01/03/19 07:37 Glucose (Fingerstick) 145 mg/dL (70-99) 126 mg/dL (70-99) 77 mg/dL (70-99) Medications Current Medications Insulin Human Lispro (HumaLOG) 0-9 UNITS TIDWMEALS SQ Last administered on 12/27at 18:33; Start 12/27/18 at 17:00; Stop 12/28/18 at 07:59; Status DC Dextrose (Dextrose 50%-Water Syringe) 12.5 gm PRN Q15MIN PRN IV SEE COMMENTS; Start 12/27/18 at 16:45 Atorvastatin Calcium (Lipitor) 40 mg HS PO Last administered on 01/02/19at 21:51 ; Start 12/27/18 at 21:00 Metoprolol Succinate (Toprol Xl) 25 mg DAILY PO Last administered on 01/03/19at 09:29; Start 12/28/18 at 09:00 Niacin (Slo-Niacin) 500 mg HS PO Last administered on 01/02/19at 21:51; Start at 21:00 Vitamin D (Vitamin D3) 5,000 unit DAILY PO Last administered on 01/03/19at 09:30 ; Start 12/28/18 at 09:00 Non-Formulary Medication (Dulaglutide (Trulicity)) 1.5 mg WEEKLY SQ ; Start 01/03 at 09:00; Status UNV Glimepiride (Amaryl) 4 mg BIDAC PO Last administered on 01/02/19at 17:03; Start 12/27/18 at 18:30 Hydrochlorothiazide (Hydrodiuril) 25 mg DAILY PO Last administered on 01/03/19at 09:30; Start 12/28/18 at 09:00 Insulin Glargine (Lantus) 32 units QHS SQ Last administered on 01/02/19at 22:05; Start 12/27/18 at 21:00 Levothyroxine Sodium (Synthroid) 50 mcg DAILY06 PO Last administered on at 06:38; Start 12/28/18 at 06:00 Insulin Human Lispro (HumaLOG) 0-9 UNITS TIDACHC SQ Last administered on at 12:31; Start 12/28/18 at 11:30 Labetalol HCl (Normodyne Iv Push) 10 mg PRN Q2HR PRN IVP HYPERTENSION, SEE COMMENTS; Start 12/28/18 at 08:00 Acetaminophen (Tylenol) 500 mg PRN Q6HRS PRN PO MILD PAIN / TEMP; Start at 08:00 Acetaminophen/ Codeine Phosphate (Tylenol #3) 1 tab PRN Q6HRS PRN PO MODERATE TO SEVERE PAIN Last administered on 01/02/19at 02:15; Start 12/28/18 at 08:00 Ondansetron HCl (Zofran) 4 mg PRN Q6HRS PRN IV NAUSEA/VOMITING; Start 12/28/18 at 08:00 Ondansetron HCl (Zofran Odt) 4 mg PRN Q6HRS PRN PO NAUSEA/VOMITING; Start 12/28 at 08:00 Sodium Chloride 1,000 ml @ 75 mls/hr 1X ONCE IV Last administered on at 15:23; Start 12/28/18 at 14:30; Stop 12/29/18 at 03:49; Status DC Sodium Chloride 500 ml @ 250 mls/hr 1X ONCE IV ; Start 12/29/18 at 11:00; Stop 12/29/18 at 12:51; Status DC Influenza Virus Vaccine (Afluria Trivalent [id number] Syringe) 0.5 ml ONCE ONCE VAX IM ; Start 12/29/18 at 10:00; Stop 12/29/18 at 10:01; Status DC Piperacillin Sod/ Tazobactam Sod (Zosyn Per Pharmacy) 1 each PRN DAILY PRN MC SEE COMMENTS; Start 12/29/18 at 11:45 Aspirin (Ecotrin) 81 mg DAILYWBKFT PO Last administered on 01/03/19at 09:30; Start 12/29/18 at 12:00 Piperacillin Sod/ Tazobactam Sod 3.375 gm/Sodium Chloride 50 ml @ 100 mls/hr Q6HRS IV Last administered on 01/03/19at 12:17; Start 12/29/18 at 12:00 Sodium Chloride 1,000 ml @ 75 mls/hr 1X ONCE IV Last administered on at 01:12; Start 12/30/18 at 00:00; Stop 12/30/18 at 13:19; Status DC Sodium Chloride 500 ml @ 250 mls/hr 1X ONCE IV Last administered on at 08:13; Start 12/30/18 at 09:30; Stop 12/30/18 at 11:29; Status DC Lactobacillus Rhamnosus (Culturelle) 1 cap BID PO Last administered on at 09:29; Start 12/29/18 at 21:00 Multivitamins (Thera M Plus) 1 tab DAILY PO Last administered on 01/03/19at 09:30 ; Start 12/30/18 at 09:00 Linezolid/Dextrose 300 ml @ 300 mls/hr Q12HR IV Last administered on 01/03/19at 09:29; Start 12/29/18 at 15:00 Midazolam HCl (Versed) 5 mg STK-MED ONCE .ROUTE ; Start 12/30/18 at 08:07; Stop 12/30/18 at 08:08; Status DC Fentanyl Citrate (Fentanyl 2ml Vial) 100 mcg STK-MED ONCE .ROUTE ; Start at 08:07; Stop 12/30/18 at 08:08; Status DC Heparin Sodium (Porcine) (Heparin Sodium) 10,000 unit STK-MED ONCE .ROUTE ; Start 12/30/18 at 08:07; Stop 12/30/18 at 08:08; Status DC Iodixanol (Visipaque 320) 100 ml STK-MED ONCE .ROUTE ; Start 12/30/18 at 08:07; Stop 12/30/18 at 08:08; Status DC Lidocaine HCl (Lidocaine 1% 20ml Vial) 20 ml STK-MED ONCE .ROUTE ; Start at 08:07; Stop 12/30/18 at 08:08; Status DC Heparin Sodium/ Sodium Chloride 1,500 ml @ As Directed STK-MED ONCE .ROUTE ; Start 12/30/18 at 08:07; Stop 12/30/18 at 08:08; Status DC Heparin Sodium/ Sodium Chloride (HEPARIN for ARTERIAL LINE FLUSH) 1,000 unit 1X ONCE IART Last administered on 12/30/18at 10:53; Start 12/30/18 at 09:15; Stop 12/30/18 at 09:16; Status DC Midazolam HCl (Versed) 5 mg 1X ONCE IV Last administered on 12/30/18 11:01; Start 12/30/18 at 09:15; Stop 12/30/18 at 09:16; Status DC Fentanyl Citrate (Fentanyl 2ml Vial) 100 mcg 1X ONCE IV Last administered on at 10:55; Start 12/30/18 at 09:15; Stop 12/30/18 at 09:16; Status DC Iodixanol (Visipaque 320) 100 ml 1X ONCE IART Last administered on 12/30/18 11:01; Start 12/30/18 at 09:15; Stop 12/30/18 at 09:16; Status DC Lidocaine HCl (Lidocaine 1% 20ml Vial) 20 ml 1X ONCE INJ Last administered on 12/30/18 11:01; Start 12/30/18 at 09:15; Stop 12/30/18 at 09:16; Status DC Iodixanol (Visipaque 320) 100 ml STK-MED ONCE .ROUTE ; Start 12/30/18 at 09:42; Stop 12/30/18 at 09:43; Status DC Heparin Sodium (Porcine) (Heparin Sodium) 6,000 unit 1X ONCE IV Last administered on 12/30/18at 11:00; Start 12/30/18 at 09:16; Stop 12/30/18 at 10:06 ; Status DC Lidocaine HCl (Lidocaine 1% 20ml Vial) 20 ml STK-MED ONCE .ROUTE ; Start at 10:06; Stop 12/30/18 at 10:07; Status DC Nitroglycerin (Nitroglycerin) 200 mcg 1X ONCE IART Last administered on at 11:01; Start 12/30/18 at 10:15; Stop 12/30/18 at 10:16; Status DC Protamine Sulfate (Protamine) 50 mg STK-MED ONCE IV ; Start 12/30/18 at 10:39; Stop 12/30/18 at 10:40; Status DC Protamine Sulfate (Protamine) 30 mg 1X ONCE IV Last administered on 12/30/18at 10:48; Start 12/30/18 at 10:48; Stop 12/30/18 at 10:58; Status DC Morphine Sulfate (Morphine Sulfate) 1 mg PRN Q10MIN PRN IV SEVERE PAIN; Start 12/31/18 at 07:00; Stop 01/01/19 at 06:59; Status DC Ringer's Solution 1,000 ml @ 30 mls/hr Q24H IV ; Start 12/31/18 at 07:00; Stop 12/31/18 at 18:59; Status DC Lidocaine HCl (Xylocaine-Mpf 1% 2ml Vial) 2 ml PRN 1X PRN ID PRIOR TO IV START ; Start 12/31/18 at 07:00; Stop 01/01/19 at 06:59; Status DC Hydromorphone HCl (Dilaudid) 0.5 mg PRN Q10MIN PRN IV SEV PAIN, Second choice; Start 12/31/18 at 07:00; Stop 01/01/19 at 06:59; Status DC Prochlorperazine Edisylate (Compazine) 5 mg PACU PRN PRN IV NAUSEA, MRX1 Last administered on 12/31/18at 09:31; Start 12/31/18 at 07:00; Stop 01/01/19 at 06:59 ; Status DC Lidocaine HCl (Xylocaine 1% Pf 30ml Vial) 30 ml STK-MED ONCE .ROUTE Last administered on 12/31/18at 07:18; Start 12/31/18 at 07:02; Stop 12/31/18 at 07:03 ; Status DC Lidocaine HCl (Xylocaine 1% Pf 30ml Vial) 30 ml STK-MED ONCE .ROUTE ; Start at 07:02; Stop 12/31/18 at 07:03; Status DC Bupivacaine HCl (Sensorcaine Mpf 0.5%) 30 ml STK-MED ONCE .ROUTE Last administered on 12/31/18at 07:18; Start 12/31/18 at 07:02; Stop 12/31/18 at 07:03 ; Status DC Ondansetron HCl (Zofran) 4 mg STK-MED ONCE .ROUTE ; Start 12/31/18 at 07:05; Stop 12/31/18 at 07:06; Status DC Lidocaine HCl (Lidocaine Pf 2% Vial) 5 ml STK-MED ONCE .ROUTE ; Start 12/31/18 at 07:05; Stop 12/31/18 at 07:06; Status DC Propofol 20 ml @ As Directed STK-MED ONCE IV ; Start 12/31/18 at 07:05; Stop at 07:06; Status DC Famotidine (Pepcid Vial) 20 mg STK-MED ONCE .ROUTE ; Start 12/31/18 at 07:05; Stop 12/31/18 at 07:06; Status DC Dexamethasone Sodium Phosphate (Decadron) 20 mg STK-MED ONCE .ROUTE ; Start at 07:05; Stop 12/31/18 at 07:06; Status Cancel Fentanyl Citrate (Fentanyl 2ml Vial) 100 mcg STK-MED ONCE .ROUTE ; Start at 07:06; Stop 12/31/18 at 07:07; Status DC Desflurane (Suprane) 60 ml STK-MED ONCE IH ; Start 12/31/18 at 08:45; Stop 12/31 at 08:46; Status DC Prochlorperazine Edisylate (Compazine) 10 mg STK-MED ONCE .ROUTE ; Start at 08:57; Stop 12/31/18 at 08:58; Status DC Ondansetron HCl (Zofran) 4 mg STK-MED ONCE .ROUTE ; Start 12/31/18 at 09:39; Stop 12/31/18 at 09:40; Status DC Sodium Chloride 1,000 ml @ 100 mls/hr Q10H IV ; Start 01/03/19 at 12:00; Stop at 12:00; Status DC Lorazepam (Ativan) 0.5 mg PRN Q6HRS PRN PO ANXIETY / AGITATION Last administered on 01/01/19at 23:00; Start 01/01/19 at 23:00 Clopidogrel Bisulfate (Plavix) 75 mg DAILYWBKFT PO Last administered on at 09:30; Start 01/02/19 at 14:00 Sodium Chloride 1,000 ml @ 75 mls/hr [id number] IV Last administered on 01/03/19at 12:18; Start 01/03/19 at 12:00 Active Scripts Active Reported Cipro (Ciprofloxacin Hcl) 500 Mg Tablet 1 Tab PO BID Niaspan (Niacin) 500 Mg Tab.er.24h 500 Mg PO HS Hydrochlorothiazide Tablet (Hydrochlorothiazide) 12.5 Mg Tablet 25 Mg PO DAILY Metoprolol Succinate ( Xl ) (Metoprolol Succinate) 25 Mg Tab.er.24h 25 Mg PO DAILY Lipitor (Atorvastatin Calcium) 40 Mg Tablet 40 Mg PO HS Trulicity (Dulaglutide) 1.5 Mg/0.5 Ml Pen.injctr 1.5 Mg SQ WEEKLY Toujeo Solostar (Insulin Glargine,Hum.rec.anlog) 300 Unit/1 Ml Insuln.pen 40 Unit SQ HS Aspirin 81 Mg Tab.chew 81 Mg PO BID Glimepiride 4 Mg Tablet 4 Mg PO BIDAC Synthroid (Levothyroxine Sodium) 50 Mcg Tablet 50 Mcg PO DAILYAC Vitamin D3 (Cholecalciferol (Vitamin D3)) 5,000 Unit Tablet 5,000 Unit PO DAILY Vitals/I & O Vital Sign - Last 24 Hours 01/02/19 01/02/19 01/02/19 01/02/19 13:38 15:00 19:15 20:00 Temp 98.0 98.0 98.0 98.0 Pulse 76 66 87 Resp 18 16 B/P (MAP) 118/64 139/70 (93) 119/48 (71) Pulse Ox 98 93 O2 Delivery Room Air Room Air Room Air 01/02/19 01/03/19 01/03/19 01/03/19 23:18 03:04 07:00 09:29 Temp 98.7 98.5 98.0 98.7 98.5 98.0 Pulse 74 78 66 66 Resp 20 18 18 B/P (MAP) 126/52 (76) 150/67 (94) 124/106 (112) 124/106 Pulse Ox 92 95 96 O2 Delivery Room Air Room Air Room Air Intake and Output 301/02/19 01/03/19 15:00 23:00 07:00 Intake Total 200 ml 440 ml Output Total 3 ml Balance 200 ml 437 ml KARLA RODRIGUEZ MD Jan 03, 2019 12:38
[2019-01-03 15:00] VITALS: BP 132/59
[2019-01-03] MEDS: NIACIN ER 500 MG TABLET.ER PO SCH (22:12)
[2019-01-03] MEDS: ATORVASTATIN CALCIUM 40 MG TABLET. PO SCH (22:12)
[2019-01-03] MEDS: LORazepam 0.5 MG TABLET PO PRN (22:12)
[2019-01-03] MEDS: INSULIN GLARGINE 300 UNITS/3 ML INSULN.PEN. SQ SCH (22:15)
[2019-01-03 23:09] VITALS: BP 111/52
[2019-01-04] VITALS (13 sets, daily range): BP systolic 120–177; BP diastolic 51–89
[2019-01-04 05:14] LABS: CALCIUM 8.6 mg/dL (8.5-10.1); CREATININE 2.1 mg/dL (0.7-1.3); GFR 31.2; POTASSIUM 3.5 mmol/L (3.5-5.1)
[2019-01-04] MEDS: LEVOTHYROXINE 50 MCG TABLET PO SCH (05:50)
[2019-01-04] MEDS: PIPERACILLIN/TAZOBACTAM 3.375 GM in IV NORMAL SALINE 50ML 50 ML IV SCH ×5 (05:50→18:16)
[2019-01-04] MEDS: GLIMEPIRIDE 2 MG TABLET. PO SCH (07:30)
[2019-01-04] MEDS: INSULIN LISPRO 300 UNITS/3 ML INSULN.PEN. SQ SCH ×4 (07:30→20:38)
[2019-01-04] MEDS: CHOLECALCIFEROL (VITAMIN D3) 5,000 UNIT CAPSULE PO SCH (07:33)
[2019-01-04] MEDS: CLOPIDOGREL BISULFATE 75 MG TABLET PO SCH (07:33)
[2019-01-04] MEDS: LACTOBACILLUS RHAMNOSUS GG 1 CAPSULE. PO SCH ×2 (07:33→20:32)
[2019-01-04] MEDS: ASPIRIN ENTERIC COATED 81 MG TABLET.DR. PO SCH (07:33)
[2019-01-04] MEDS: MULTIVITAMIN with MINERAL TABLET. PO SCH (07:33)
--- NOTE | 2019-01-04 07:49 | PDOC ---
PROGRESS NOTES Chief Complaint Chief Complaint dry gangrene, ischemic toes, atherosclerosis of north fork arteries of right leg with gangrene of all toes --> s/ p perc revascularization 01/02/19 --> 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 severe peripheral vascular disease DM2 prior CVA, vasculopathy, his family had stopped his aspirin and substituted tylenol obese, BMI 33 History of Present Illness History of Present Illness Right foot with surgical dressings status post amputation Has been oob with assist. He is seen ambulating halls today. He is anxious about plan for left leg angioplasty today with vascular surgery. Pain reasonably controlled. Plan: Continue insulin Continue current antibiotics Will d/c nephrotoxic meds ID consulted for antibiotic recs further recommendations as per vascular discussed with son at bedside Blood pressure fairly controlled, add labetalol when necessary Vitals Vitals Vital Signs Date Time Temp Pulse Resp B/P (MAP) Pulse Ox O2 Delivery O2 Flow Rate FiO2 01/04/19 07:00 98.4 80 18 131/71 (91) 99 Room Air 98.4 Physical Exam Physical Exam GENERAL: Sitting in the chair, alert, NAD HEENT: Oral cavity clear NECK: Supple LUNGS: Clear. HEART: S1, S2 ABDOMEN: Obese, soft, NT, BS present EXTREMITIES: 2+ edema BLE. Right foot bandaged NEUROLOGIC: Alert, responds appropriately PIV ok General: Alert, Oriented X3, Cooperative, No acute distress Heart: Regular rate, Normal S1, Normal S2, No murmurs Abdomen: Soft, No tenderness Extremities: No clubbing, No cyanosis, Other (Right foot edema up to mid armijo) Skin: Other (Left foot with hard calloused ulcer to left great toe medial plantar surface. Right foot with dry, hard eschar to all 5 toes, more prominent on plantar surface. There is no drainage throughout. The right foot had erythema and edema extending just above ankle. ) Labs LABS Laboratory Tests Test 01/03/19 16:44 01/03/19 21:07 01/04/19 04:23 01/04/19 07:07 Glucose (Fingerstick) 126 mg/dL (70-99) 170 mg/dL (70-99) 103 mg/dL (70-99) Prothrombin Time 15.0 SEC (11.7-14.0) Prothromb Time International Ratio 1.2 (0.8-1.1) Sodium Level 143 mmol/L (136-145) Potassium Level 3.5 mmol/L (3.5-5.1) Chloride Level 103 mmol/L (98-107) Carbon Dioxide Level 23 mmol/L (21-32) Anion Gap 17 (6-14) Blood Urea Nitrogen 24 mg/dL (8-26) Creatinine 2.1 mg/dL (0.7-1.3) Estimated GFR (Cockcroft-Gault) 31.2 Glucose Level 119 mg/dL (70-99) Calcium Level 8.6 mg/dL (8.5-10.1) Comment Review of Relevant I have reviewed the following items magalie (where applicable) has been applied. Labs Laboratory Tests Test 01/02/19 08:16 01/02/19 08:43 01/02/19 09:23 01/02/19 11:51 Glucose (Fingerstick) 64 mg/dL (70-99) 64 mg/dL (70-99) 129 mg/dL (70-99) 192 mg/dL (70-99) Test 01/02/19 16:22 01/02/19 20:53 01/03/19 07:37 01/03/19 16:44 Glucose (Fingerstick) 145 mg/dL (70-99) 126 mg/dL (70-99) 77 mg/dL (70-99) 126 mg/dL (70-99) Test 01/03/19 21:07 01/04/19 04:23 01/04/19 07:07 Glucose (Fingerstick) 170 mg/dL (70-99) 103 mg/dL (70-99) Prothrombin Time 15.0 SEC (11.7-14.0) Prothromb Time International Ratio 1.2 (0.8-1.1) Sodium Level 143 mmol/L (136-145) Potassium Level 3.5 mmol/L (3.5-5.1) Chloride Level 103 mmol/L (98-107) Carbon Dioxide Level 23 mmol/L (21-32) Anion Gap 17 (6-14) Blood Urea Nitrogen 24 mg/dL (8-26) Creatinine 2.1 mg/dL (0.7-1.3) Estimated GFR (Cockcroft-Gault) 31.2 Glucose Level 119 mg/dL (70-99) Calcium Level 8.6 mg/dL (8.5-10.1) Laboratory Tests Test 01/03/19 16:44 01/03/19 21:07 01/04/19 04:23 01/04/19 07:07 Glucose (Fingerstick) 126 mg/dL (70-99) 170 mg/dL (70-99) 103 mg/dL (70-99) Prothrombin Time 15.0 SEC (11.7-14.0) Prothromb Time International Ratio 1.2 (0.8-1.1) Sodium Level 143 mmol/L (136-145) Potassium Level 3.5 mmol/L (3.5-5.1) Chloride Level 103 mmol/L (98-107) Carbon Dioxide Level 23 mmol/L (21-32) Anion Gap 17 (6-14) Blood Urea Nitrogen 24 mg/dL (8-26) Creatinine 2.1 mg/dL (0.7-1.3) Estimated GFR (Cockcroft-Gault) 31.2 Glucose Level 119 mg/dL (70-99) Calcium Level 8.6 mg/dL (8.5-10.1) Medications Current Medications Insulin Human Lispro (HumaLOG) 0-9 UNITS TIDWMEALS SQ Last administered on 12/27 18:33; Start 12/27/18 at 17:00; Stop 12/28/18 at 07:59; Status DC Dextrose (Dextrose 50%-Water Syringe) 12.5 gm PRN Q15MIN PRN IV SEE COMMENTS; Start 12/27/18 at 16:45 Atorvastatin Calcium (Lipitor) 40 mg HS PO Last administered on 01/03/19at 22:12 ; Start 12/27/18 at 21:00 Metoprolol Succinate (Toprol Xl) 25 mg DAILY PO Last administered on 01/03/19at 09:29; Start 12/28/18 at 09:00 Niacin (Slo-Niacin) 500 mg HS PO Last administered on 01/03/19at 22:12; Start at 21:00 Vitamin D (Vitamin D3) 5,000 unit DAILY PO Last administered on 01/03/19at 09:30 ; Start 12/28/18 at 09:00 Non-Formulary Medication (Dulaglutide (Trulicity)) 1.5 mg WEEKLY SQ ; Start 01/03 at 09:00; Status UNV Glimepiride (Amaryl) 4 mg BIDAC PO Last administered on 01/03/19 18:02; Start 12/27/18 at 18:30 Hydrochlorothiazide (Hydrodiuril) 25 mg DAILY PO Last administered on 01/03/19 09:30; Start 12/28/18 at 09:00 Insulin Glargine (Lantus) 32 units QHS SQ Last administered on 01/03/19at 22:15; Start 12/27/18 at 21:00 Levothyroxine Sodium (Synthroid) 50 mcg DAILY06 PO Last administered on 05:50; Start 12/28/18 at 06:00 Insulin Human Lispro (HumaLOG) 0-9 UNITS TIDACHC SQ Last administered on at 12:31; Start 12/28/18 at 11:30 Labetalol HCl (Normodyne Iv Push) 10 mg PRN Q2HR PRN IVP HYPERTENSION, SEE COMMENTS; Start 12/28/18 at 08:00 Acetaminophen (Tylenol) 500 mg PRN Q6HRS PRN PO MILD PAIN / TEMP; Start at 08:00 Acetaminophen/ Codeine Phosphate (Tylenol #3) 1 tab PRN Q6HRS PRN PO MODERATE TO SEVERE PAIN Last administered on 01/02/19 02:15; Start 12/28/18 at 08:00 Ondansetron HCl (Zofran) 4 mg PRN Q6HRS PRN IV NAUSEA/VOMITING; Start 12/28/18 at 08:00 Ondansetron HCl (Zofran Odt) 4 mg PRN Q6HRS PRN PO NAUSEA/VOMITING; Start 12/28 at 08:00 Sodium Chloride 1,000 ml @ 75 mls/hr 1X ONCE IV Last administered on 15:23; Start 12/28/18 at 14:30; Stop 12/29/18 at 03:49; Status DC Sodium Chloride 500 ml @ 250 mls/hr 1X ONCE IV ; Start 12/29/18 at 11:00; Stop 12/29/18 at 12:51; Status DC Influenza Virus Vaccine (Afluria Trivalent 6084-6080 Syringe) 0.5 ml ONCE ONCE VAX IM ; Start 12/29/18 at 10:00; Stop 12/29/18 at 10:01; Status DC Piperacillin Sod/ Tazobactam Sod (Zosyn Per Pharmacy) 1 each PRN DAILY PRN MC SEE COMMENTS; Start 12/29/18 at 11:45 Aspirin (Ecotrin) 81 mg DAILYWBKFT PO Last administered on 01/03/19at 09:30; Start 12/29/18 at 12:00 Piperacillin Sod/ Tazobactam Sod 3.375 gm/Sodium Chloride 50 ml @ 100 mls/hr Q6HRS IV Last administered on 01/04/19at 05:50; Start 12/29/18 at 12:00 Sodium Chloride 1,000 ml @ 75 mls/hr 1X ONCE IV Last administered on at 01:12; Start 12/30/18 at 00:00; Stop 12/30/18 at 13:19; Status DC Sodium Chloride 500 ml @ 250 mls/hr 1X ONCE IV Last administered on at 08:13; Start 12/30/18 at 09:30; Stop 12/30/18 at 11:29; Status DC Lactobacillus Rhamnosus (Culturelle) 1 cap BID PO Last administered on at 22:12; Start 12/29/18 at 21:00 Multivitamins (Thera M Plus) 1 tab DAILY PO Last administered on 01/03/19at 09:30 ; Start 12/30/18 at 09:00 Linezolid/Dextrose 300 ml @ 300 mls/hr Q12HR IV Last administered on 01/03/19at 22:13; Start 12/29/18 at 15:00 Midazolam HCl (Versed) 5 mg STK-MED ONCE .ROUTE ; Start 12/30/18 at 08:07; Stop 12/30/18 at 08:08; Status DC Fentanyl Citrate (Fentanyl 2ml Vial) 100 mcg STK-MED ONCE .ROUTE ; Start at 08:07; Stop 12/30/18 at 08:08; Status DC Heparin Sodium (Porcine) (Heparin Sodium) 10,000 unit STK-MED ONCE .ROUTE ; Start 12/30/18 at 08:07; Stop 12/30/18 at 08:08; Status DC Iodixanol (Visipaque 320) 100 ml STK-MED ONCE .ROUTE ; Start 12/30/18 at 08:07; Stop 12/30/18 at 08:08; Status DC Lidocaine HCl (Lidocaine 1% 20ml Vial) 20 ml STK-MED ONCE .ROUTE ; Start at 08:07; Stop 12/30/18 at 08:08; Status DC Heparin Sodium/ Sodium Chloride 1,500 ml @ As Directed STK-MED ONCE .ROUTE ; Start 12/30/18 at 08:07; Stop 12/30/18 at 08:08; Status DC Heparin Sodium/ Sodium Chloride (HEPARIN for ARTERIAL LINE FLUSH) 1,000 unit 1X ONCE IART Last administered on 12/30/18at 10:53; Start 12/30/18 at 09:15; Stop 12/30/18 at 09:16; Status DC Midazolam HCl (Versed) 5 mg 1X ONCE IV Last administered on 12/30/18at 11:01; Start 12/30/18 at 09:15; Stop 12/30/18 at 09:16; Status DC Fentanyl Citrate (Fentanyl 2ml Vial) 100 mcg 1X ONCE IV Last administered on at 10:55; Start 12/30/18 at 09:15; Stop 12/30/18 at 09:16; Status DC Iodixanol (Visipaque 320) 100 ml 1X ONCE IART Last administered on 12/30/18at 11:01; Start 12/30/18 at 09:15; Stop 12/30/18 at 09:16; Status DC Lidocaine HCl (Lidocaine 1% 20ml Vial) 20 ml 1X ONCE INJ Last administered on 12/30/18at 11:01; Start 12/30/18 at 09:15; Stop 12/30/18 at 09:16; Status DC Iodixanol (Visipaque 320) 100 ml STK-MED ONCE .ROUTE ; Start 12/30/18 at 09:42; Stop 12/30/18 at 09:43; Status DC Heparin Sodium (Porcine) (Heparin Sodium) 6,000 unit 1X ONCE IV Last administered on 12/30/18at 11:00; Start 12/30/18 at 09:16; Stop 12/30/18 at 10:06 ; Status DC Lidocaine HCl (Lidocaine 1% 20ml Vial) 20 ml STK-MED ONCE .ROUTE ; Start at 10:06; Stop 12/30/18 at 10:07; Status DC Nitroglycerin (Nitroglycerin) 200 mcg 1X ONCE IART Last administered on at 11:01; Start 12/30/18 at 10:15; Stop 12/30/18 at 10:16; Status DC Protamine Sulfate (Protamine) 50 mg STK-MED ONCE IV ; Start 12/30/18 at 10:39; Stop 12/30/18 at 10:40; Status DC Protamine Sulfate (Protamine) 30 mg 1X ONCE IV Last administered on 12/30/18at 10:48; Start 12/30/18 at 10:48; Stop 12/30/18 at 10:58; Status DC Morphine Sulfate (Morphine Sulfate) 1 mg PRN Q10MIN PRN IV SEVERE PAIN; Start 12/31/18 at 07:00; Stop 01/01/19 at 06:59; Status DC Ringer's Solution 1,000 ml @ 30 mls/hr Q24H IV ; Start 12/31/18 at 07:00; Stop 12/31/18 at 18:59; Status DC Lidocaine HCl (Xylocaine-Mpf 1% 2ml Vial) 2 ml PRN 1X PRN ID PRIOR TO IV START ; Start 12/31/18 at 07:00; Stop 01/01/19 at 06:59; Status DC Hydromorphone HCl (Dilaudid) 0.5 mg PRN Q10MIN PRN IV SEV PAIN, Second choice; Start 12/31/18 at 07:00; Stop 01/01/19 at 06:59; Status DC Prochlorperazine Edisylate (Compazine) 5 mg PACU PRN PRN IV NAUSEA, MRX1 Last administered on 12/31/18at 09:31; Start 12/31/18 at 07:00; Stop 01/01/19 at 06:59 ; Status DC Lidocaine HCl (Xylocaine 1% Pf 30ml Vial) 30 ml STK-MED ONCE .ROUTE Last administered on 12/31/18at 07:18; Start 12/31/18 at 07:02; Stop 12/31/18 at 07:03 ; Status DC Lidocaine HCl (Xylocaine 1% Pf 30ml Vial) 30 ml STK-MED ONCE .ROUTE ; Start at 07:02; Stop 12/31/18 at 07:03; Status DC Bupivacaine HCl (Sensorcaine Mpf 0.5%) 30 ml STK-MED ONCE .ROUTE Last administered on 12/31/18at 07:18; Start 12/31/18 at 07:02; Stop 12/31/18 at 07:03 ; Status DC Ondansetron HCl (Zofran) 4 mg STK-MED ONCE .ROUTE ; Start 12/31/18 at 07:05; Stop 12/31/18 at 07:06; Status DC Lidocaine HCl (Lidocaine Pf 2% Vial) 5 ml STK-MED ONCE .ROUTE ; Start 12/31/18 at 07:05; Stop 12/31/18 at 07:06; Status DC Propofol 20 ml @ As Directed STK-MED ONCE IV ; Start 12/31/18 at 07:05; Stop at 07:06; Status DC Famotidine (Pepcid Vial) 20 mg STK-MED ONCE .ROUTE ; Start 12/31/18 at 07:05; Stop 12/31/18 at 07:06; Status DC Dexamethasone Sodium Phosphate (Decadron) 20 mg STK-MED ONCE .ROUTE ; Start at 07:05; Stop 12/31/18 at 07:06; Status Cancel Fentanyl Citrate (Fentanyl 2ml Vial) 100 mcg STK-MED ONCE .ROUTE ; Start at 07:06; Stop 12/31/18 at 07:07; Status DC Desflurane (Suprane) 60 ml STK-MED ONCE IH ; Start 12/31/18 at 08:45; Stop 12/31 at 08:46; Status DC Prochlorperazine Edisylate (Compazine) 10 mg STK-MED ONCE .ROUTE ; Start at 08:57; Stop 12/31/18 at 08:58; Status DC Ondansetron HCl (Zofran) 4 mg STK-MED ONCE .ROUTE ; Start 12/31/18 at 09:39; Stop 12/31/18 at 09:40; Status DC Sodium Chloride 1,000 ml @ 100 mls/hr Q10H IV ; Start 01/03/19 at 12:00; Stop at 12:00; Status DC Lorazepam (Ativan) 0.5 mg PRN Q6HRS PRN PO ANXIETY / AGITATION Last administered on 01/03/19at 22:12; Start 01/01/19 at 23:00 Clopidogrel Bisulfate (Plavix) 75 mg DAILYWBKFT PO Last administered on at 09:30; Start 01/02/19 at 14:00 Sodium Chloride 1,000 ml @ 75 mls/hr [id number] IV Last administered on 01/03/19at 12:18; Start 01/03/19 at 12:00 Active Scripts Active Reported Cipro (Ciprofloxacin Hcl) 500 Mg Tablet 1 Tab PO BID Niaspan (Niacin) 500 Mg Tab.er.24h 500 Mg PO HS Hydrochlorothiazide Tablet (Hydrochlorothiazide) 12.5 Mg Tablet 25 Mg PO DAILY Metoprolol Succinate ( Xl ) (Metoprolol Succinate) 25 Mg Tab.er.24h 25 Mg PO DAILY Lipitor (Atorvastatin Calcium) 40 Mg Tablet 40 Mg PO HS Trulicity (Dulaglutide) 1.5 Mg/0.5 Ml Pen.injctr 1.5 Mg SQ WEEKLY Toujeo Solostar (Insulin Glargine,Hum.rec.anlog) 300 Unit/1 Ml Insuln.pen 40 Unit SQ HS Aspirin 81 Mg Tab.chew 81 Mg PO BID Glimepiride 4 Mg Tablet 4 Mg PO BIDAC Synthroid (Levothyroxine Sodium) 50 Mcg Tablet 50 Mcg PO DAILYAC Vitamin D3 (Cholecalciferol (Vitamin D3)) 5,000 Unit Tablet 5,000 Unit PO DAILY Vitals/I & O Vital Sign - Last 24 Hours 01/03/19 01/03/19 01/03/19 01/03/19 08:00 09:29 11:00 15:00 Temp 98.0 98.9 98.0 98.9 Pulse 66 73 62 Resp 18 18 B/P (MAP) 124/106 148/67 (94) 132/59 (83) Pulse Ox 96 96 O2 Delivery Room Air Room Air Room Air 01/03/19 01/03/19 01/04/19 01/04/19 20:00 23:09 03:18 07:00 Temp 98.1 98.2 98.4 98.1 98.2 98.4 Pulse 72 78 80 Resp 18 18 18 B/P (MAP) 111/52 (71) 120/51 (74) 131/71 (91) Pulse Ox 93 94 99 O2 Delivery Room Air Room Air Room Air Room Air Intake and Output 01/03/19 01/03/19 01/04/19 14:59 22:59 06:59 Intake Total 240 ml 240 ml 360 ml Balance 240 ml 240 ml 360 ml RASHARD PATEL MD Jan 04, 2019 07:48
[2019-01-04] MEDS ORDERED: POTASSIUM CHLORIDE 20 MEQ TABLET.ER. PO ONE (08:30)
--- NOTE | 2019-01-04 09:00 | PDOC ---
Infectious Disease Note Subjective: Subjective c/o pain on ball of right foot Appetite good awaiting arteriogram this am Denies cramps/bloating/N/V or loss of appetite No F/C/S has some diarrhea ROS: ROS Negative except for above. Vital Signs: Vital Signs Vital Signs Date Time Temp Pulse Resp B/P (MAP) Pulse Ox O2 Delivery O2 Flow Rate FiO2 01/04/19 07:00 98.4 80 18 131/71 (91) 99 Room Air 98.4 Physical Exam: PHYSICAL EXAM GENERAL: Sitting in the chair, alert, NAD HEENT: Oral cavity clear NECK: Supple LUNGS: Clear. HEART: S1, S2 ABDOMEN: Obese, soft, NT, BS present EXTREMITIES: 2+ edema BLE. Right foot bandaged NEUROLOGIC: Alert, responds appropriately PIV ok Medications: Inpatient Meds: Current Medications Medications (Trade) Dose Ordered Sig/Zeeshan Start Time Stop Time Status Last Admin Dose Admin Acetaminophen (Tylenol) 500 mg PRN Q6HRS PRN 12/28/18 08:00 Acetaminophen/ Codeine Phosphate (Tylenol #3) 1 tab PRN Q6HRS PRN 12/28/18 08:00 01/02/19 02:15 1 TAB Aspirin (Ecotrin) 81 mg DAILYWBKFT 12/29/18 12:00 01/03/19 09:30 81 MG Atorvastatin Calcium (Lipitor) 40 mg HS 12/27/18 21:00 01/03/19 22:12 40 MG Bupivacaine HCl (Sensorcaine Mpf 0.5%) 30 ml STK-MED ONCE 12/31/18 07:02 12/31/18 07:03 DC 12/31/18 07:18 4 ML Clopidogrel Bisulfate (Plavix) 75 mg DAILYWBKFT 01/02/19 14:00 01/03/19 09:30 75 MG Desflurane (Suprane) 60 ml STK-MED ONCE 12/31/18 08:45 12/31/18 08:46 DC Dexamethasone Sodium Phosphate (Decadron) 20 mg STK-MED ONCE 12/31/18 07:05 12/31/18 07:06 Cancel Dextrose (Dextrose 50%-Water Syringe) 12.5 gm PRN Q15MIN PRN 12/27/18 16:45 Famotidine (Pepcid Vial) 20 mg STK-MED ONCE 12/31/18 07:05 12/31/18 07:06 DC Fentanyl Citrate (Fentanyl 2ml Vial) 100 mcg STK-MED ONCE 12/31/18 07:06 12/31/18 07:07 DC Glimepiride (Amaryl) 4 mg BIDAC 12/27/18 18:30 01/04/19 07:48 DC 01/03/19 18:02 4 MG Heparin Sodium (Porcine) (Heparin Sodium) 6,000 unit 1X ONCE 12/30/18 09:16 12/30/18 10:06 DC 12/30/18 11:00 8,000 UNIT Heparin Sodium/ Sodium Chloride (HEPARIN for ARTERIAL LINE FLUSH) 1,000 unit 1X ONCE 12/30/18 09:15 12/30/18 09:16 DC 12/30/18 10:53 1,000 UNIT Hydrochlorothiazide (Hydrodiuril) 25 mg DAILY 12/28/18 09:00 01/04/19 07:48 DC 01/03/19 09:30 25 MG Hydromorphone HCl (Dilaudid) 0.5 mg PRN Q10MIN PRN 12/31/18 07:00 01/01/19 06:59 DC Influenza Virus Vaccine (Afluria Trivalent [id number] Syringe) 0.5 ml ONCE ONCE 12/29/18 10:00 12/29/18 10:01 DC Insulin Glargine (Lantus) 32 units QHS 12/27/18 21:00 01/03/19 22:15 16 UNITS Insulin Human Lispro (HumaLOG) 0-9 UNITS TIDACHC 12/28/18 11:30 01/03/19 12:31 5 UNITS Iodixanol (Visipaque 320) 100 ml STK-MED ONCE 12/30/18 09:42 12/30/18 09:43 DC Labetalol HCl (Normodyne Iv Push) 10 mg PRN Q2HR PRN 12/28/18 08:00 Lactobacillus Rhamnosus (Culturelle) 1 cap BID 12/29/18 21:00 01/03/19 22:12 1 CAP Levothyroxine Sodium (Synthroid) 50 mcg DAILY06 12/28/18 06:00 01/04/19 05:50 50 MCG Lidocaine HCl (Lidocaine 1% 20ml Vial) 20 ml STK-MED ONCE 12/30/18 10:06 12/30/18 10:07 DC Lidocaine HCl (Lidocaine Pf 2% Vial) 5 ml STK-MED ONCE 12/31/18 07:05 12/31/18 07:06 DC Lidocaine HCl (Xylocaine 1% Pf 30ml Vial) 30 ml STK-MED ONCE 12/31/18 07:02 12/31/18 07:03 DC Lidocaine HCl (Xylocaine-Mpf 1% 2ml Vial) 2 ml PRN 1X PRN 12/31/18 07:00 01/01/19 06:59 DC Linezolid/Dextrose 300 ml @ 300 mls/hr Q12HR 12/29/18 15:00 01/03/19 22:13 300 MLS/HR Lorazepam (Ativan) 0.5 mg PRN Q6HRS PRN 01/01/19 23:00 01/03/19 22:12 0.5 MG Metoprolol Succinate (Toprol Xl) 25 mg DAILY 12/28/18 09:00 01/03/19 09:29 25 MG Midazolam HCl (Versed) 5 mg 1X ONCE 12/30/18 09:15 12/30/18 09:16 DC 12/30/18 11:01 4 MG Morphine Sulfate (Morphine Sulfate) 1 mg PRN Q10MIN PRN 12/31/18 07:00 01/01/19 06:59 DC Multivitamins (Thera M Plus) 1 tab DAILY 12/30/18 09:00 01/03/19 09:30 1 TAB Niacin (Slo-Niacin) 500 mg HS 12/27/18 21:00 01/03/19 22:12 500 MG Nitroglycerin (Nitroglycerin) 200 mcg 1X ONCE 12/30/18 10:15 12/30/18 10:16 DC 12/30/18 11:01 400 MCG Non-Formulary Medication (Dulaglutide (Trulicity)) 1.5 mg WEEKLY 01/03/19 09:00 UNV Ondansetron HCl (Zofran Odt) 4 mg PRN Q6HRS PRN 12/28/18 08:00 Ondansetron HCl (Zofran) 4 mg STK-MED ONCE 12/31/18 09:39 12/31/18 09:40 DC Piperacillin Sod/ Tazobactam Sod (Zosyn Per Pharmacy) 1 each PRN DAILY PRN 12/29/18 11:45 Piperacillin Sod/ Tazobactam Sod 3.375 gm/Sodium Chloride 50 ml @ 100 mls/hr Q6HRS 12/29/18 12:00 01/04/19 05:50 100 MLS/HR Potassium Chloride (Klor-Con) 20 meq 1X ONCE 01/04/19 08:30 01/04/19 08:31 DC Prochlorperazine Edisylate (Compazine) 10 mg STK-MED ONCE 12/31/18 08:57 12/31/18 08:58 DC Propofol 20 ml @ As Directed STK-MED ONCE 12/31/18 07:05 12/31/18 07:06 DC Protamine Sulfate (Protamine) 30 mg 1X ONCE 12/30/18 10:48 12/30/18 10:58 DC 12/30/18 10:48 30 MG Ringer's Solution 1,000 ml @ 30 mls/hr Q24H 12/31/18 07:00 12/31/18 18:59 DC Sodium Chloride 1,000 ml @ 75 mls/hr [id number] 01/03/19 12:00 01/03/19 12:18 75 MLS/HR Vitamin D (Vitamin D3) 5,000 unit DAILY 12/28/18 09:00 01/03/19 09:30 5,000 UNIT Labs: Lab Laboratory Tests Test 01/03/19 16:44 01/03/19 21:07 01/04/19 04:23 01/04/19 07:07 Glucose (Fingerstick) 126 mg/dL (70-99) 170 mg/dL (70-99) 103 mg/dL (70-99) Prothrombin Time 15.0 SEC (11.7-14.0) Prothromb Time International Ratio 1.2 (0.8-1.1) Sodium Level 143 mmol/L (136-145) Potassium Level 3.5 mmol/L (3.5-5.1) Chloride Level 103 mmol/L (98-107) Carbon Dioxide Level 23 mmol/L (21-32) Anion Gap 17 (6-14) Blood Urea Nitrogen 24 mg/dL (8-26) Creatinine 2.1 mg/dL (0.7-1.3) Estimated GFR (Cockcroft-Gault) 31.2 Glucose Level 119 mg/dL (70-99) Calcium Level 8.6 mg/dL (8.5-10.1) Objective: Assessment: Right foot cellulitis. Right foot all toes gangrene. s/p right leg angioplasty and TMA w/ primary closure on 12/31. Left big toe ulcer s/p debridement to level of bone and tendon on 12/31 Leukocytosis. Diabetes. Coronary artery disease. Renal insufficiency. Diarrhea Plan: Plan of Care Zyvox, Zosyn Probiotics Wound care C. diff PCR pending awaiting arteriogram and then possible left leg angioplasty per vascular surgery Supportive care D/w nursing JESSA CALLAHAN MD Jan 04, 2019 09:00
[2019-01-04] MEDS: METOPROLOL SUCC 24HR ER 25 MG TAB.ER.24H. PO SCH (09:13)
[2019-01-04] MEDS: IV NORMAL SALINE 1000ML BAG 1,000 ML IV SCH ×3 (09:14→18:16)
--- NOTE | 2019-01-04 11:23 | NUR ---
SW following. Discussed with RN, pt having a procedure today. SW awaiting PT/OT recommendations after procedure. SW will continue to follow.
--- NOTE | 2019-01-04 14:14 | PATHOLOGY ---
[facility] Accession Number: [id number] . 01 Material submitted: . RIGHT FOOT METATARSALS . 01 Clinical history: . None provided. . 02 Diagnosis: Right foot transmetatarsal amputation: - Gangrenous necrosis and ulceration of all five toes with acute cellulitis and focal acute osteomyelitis. - Proximal skin and subcutaneous tissue and bone amputation margins appear viable. (JPM:fish; 01/04/2019) QMS/01/04/2019 . 02 Electronically signed: . Wai Cain MD, Pathologist NPI- [id number] . 01 Gross description: . Received in formalin labeled "Tyler Watson, right foot metatarsals" is a right transmetatarsal amputation specimen measuring 9.6 cm from medial to lateral, 9.1 cm from proximal to distal, and 3.6 cm from dorsal to plantar. The proximal skin and soft tissue margin is smooth and grossly viable and is inked black. The proximal bone margins are smooth and consistent with surgical margins. The specimen displays 5 intact toes, which are diffusely green-alcantar and necrotic over a 10.2 x 4.5 x 2.4 cm total area. This area is located 0.8 cm from the closest skin margin (lateral aspect) and 2.0 cm from the closest resection margin (fifth metatarsal). The uninvolved skin is mesa-white. [employer] sections of the specimen are submitted as follows: A1 discolored area to closest skin and soft tissue margin A2 first metatarsal margin (decalcified) A3 second and third metatarsal margin (decalcified) A4 fourth and fifth metatarsal margin (decalcified) A5 discolored area to fourth toe bone (decalcified) A6 discolored area to fifth toe bone (decalcified) [place] [place] SYC/SYC . 02 Pathologist provided ICD-10: M86.171, L03.031, I96 . 02 CPT . 810323, 679333 Specimen Comment: A courtesy copy of this report has been sent to Specimen Comment: [phone], , . Specimen Comment: Report sent to ,DR RODRIGUEZ / DR WALLER Specimen Comment: A duplicate report has been generated due to demographic updates. Performed at: 01 [facility] [address] [facility] [address], [place] [id number] MD Mychal Cosme MD Phone: [phone] Performed at: 02 [facility] [address] [place], [place] [id number] MD Wai Cain MD Phone: [phone]
[2019-01-04] MEDS ORDERED: LIDOCAINE 1% Multi-Dose 20 ML VIAL. ONE (14:40)
[2019-01-04] MEDS ORDERED: MIDAZOLAM HCL/PF 5 MG/5 ML VIAL. ONE (14:44)
[2019-01-04] MEDS ORDERED: HEPARIN for IV BOLUS 10,000 UNIT/10 ML VIAL. ONE (14:45)
[2019-01-04] MEDS ORDERED: fentaNYL PF VIAL 100 MCG/2 ML VIAL ONE (14:45)
[2019-01-04] MEDS ORDERED: HEPARIN for IV BOLUS 10,000 UNIT/10 ML VIAL. IV ONE (15:30)
[2019-01-04] MEDS ORDERED: fentaNYL PF VIAL 100 MCG/2 ML VIAL IV ONE (15:30)
[2019-01-04] MEDS ORDERED: MIDAZOLAM HCL/PF 5 MG/5 ML VIAL. IV ONE (15:30)
[2019-01-04] MEDS ORDERED: LIDOCAINE 1% Multi-Dose 20 ML VIAL. INJ ONE (15:30)
[2019-01-04] MEDS ORDERED: IODIXANOL 320 MG/ML 100 ML VIAL. IART ONE ×2 (15:30→16:30)
--- NOTE | 2019-01-04 15:47 | NUR ---
Pt will transfer to room 207 after surgery. Called and gave report to SUMMER Thorpe
[2019-01-04] MEDS ORDERED: CONTRAST GIVEN. MC PRN (16:30)
--- NOTE | 2019-01-04 17:51 | PDOC ---
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 Post-Op Diagnosis SAME Procedure Performed RIGHT MANAGER CLIENT ACCESS LEFT SFA ANGIOPLASTY LEFT TIBIAL ANGIOPLASTY Surgeon Diana RODRIGUEZ MD Machine Quilt Stuffer NONE Blood Loss 50CC IV Fluid SALINE 100 CC PER HOUR Specimens Obtained NONE Findings LEFT DISTAL SFA HIGH GRADE STENOSIS --> ANGIOPLASTY LEFT PT TOTALLY OCCLUDED LEFT JULIO CESAR TOTALLY OCCLUDED LEFT PERONEAL WITH STENOSIS --> ANGIOPLASTY Complications NONE Operative Note RIGHT MANAGER CLIENT ACCESS, UP AND OVER AND LEFT SFA ANGIOPLASTY, LEFT TIBIAL ANGIOPLASTY ABOVE SEE FULL OP NOTE FOR DETAILS RILEY RODRIGUEZ MD Jan 04, 2019 17:51
[2019-01-04] MEDS: ATORVASTATIN CALCIUM 40 MG TABLET. PO SCH (20:32)
[2019-01-04] MEDS: NIACIN ER 500 MG TABLET.ER PO SCH (20:32)
[2019-01-04] MEDS: INSULIN GLARGINE 300 UNITS/3 ML INSULN.PEN. SQ SCH (20:45)
[2019-01-05] MEDS: PIPERACILLIN/TAZOBACTAM 3.375 GM in IV NORMAL SALINE 50ML 50 ML IV SCH ×5 (00:14→23:06)
[2019-01-05 03:10] VITALS: BP 170/79
[2019-01-05] MEDS: LEVOTHYROXINE 50 MCG TABLET PO SCH (05:56)
[2019-01-05 07:00] VITALS: BP 150/71
[2019-01-05] MEDS: INSULIN LISPRO 300 UNITS/3 ML INSULN.PEN. SQ SCH ×4 (07:30→21:00)
[2019-01-05] MEDS ORDERED: IPRATRPIUM/ALBUTEROL 0.5/2.5MG 3 ML NEBU. NEB SCH (08:00)
--- NOTE | 2019-01-05 08:56 | PDOC ---
Infectious Disease Note Subjective: Subjective pt says feels ok underwent angioplasty yesterday Appetite good Denies cramps/bloating/N/V or loss of appetite No F/C/S has some diarrhea ROS: ROS Negative except for above. Vital Signs: Vital Signs Vital Signs Date Time Temp Pulse Resp B/P (MAP) Pulse Ox O2 Delivery O2 Flow Rate FiO2 01/05/19 07:58 Room Air 01/05/19 07:00 98.5 81 20 150/71 (97) 97 98.5 01/04/19 17:50 2.0 Physical Exam: PHYSICAL EXAM GENERAL: Sitting in the chair, alert, NAD HEENT: Oral cavity clear NECK: Supple LUNGS: Clear. HEART: S1, S2 ABDOMEN: Obese, soft, NT, BS present EXTREMITIES: 2+ edema BLE. Right foot bandaged NEUROLOGIC: Alert, responds appropriately PIV ok Medications: Inpatient Meds: Current Medications Medications (Trade) Dose Ordered Sig/Zeeshan Start Time Stop Time Status Last Admin Dose Admin Acetaminophen (Tylenol) 500 mg PRN Q6HRS PRN 12/28/18 08:00 Acetaminophen/ Codeine Phosphate (Tylenol #3) 1 tab PRN Q6HRS PRN 12/28/18 08:00 01/02/19 02:15 1 TAB Albuterol/ Ipratropium (Duoneb) 3 ml RTQID 01/05/19 08:00 01/05/19 08:00 DC Aspirin (Ecotrin) 81 mg DAILYWBKFT 12/29/18 12:00 01/03/19 09:30 81 MG Atorvastatin Calcium (Lipitor) 40 mg HS 12/27/18 21:00 01/04/19 20:32 40 MG Bupivacaine HCl (Sensorcaine Mpf 0.5%) 30 ml STK-MED ONCE 12/31/18 07:02 12/31/18 07:03 DC 12/31/18 07:18 4 ML Clopidogrel Bisulfate (Plavix) 75 mg DAILYWBKFT 01/02/19 14:00 01/03/19 09:30 75 MG Desflurane (Suprane) 60 ml STK-MED ONCE 12/31/18 08:45 12/31/18 08:46 DC Dexamethasone Sodium Phosphate (Decadron) 20 mg STK-MED ONCE 12/31/18 07:05 12/31/18 07:06 Cancel Dextrose (Dextrose 50%-Water Syringe) 12.5 gm PRN Q15MIN PRN 12/27/18 16:45 Famotidine (Pepcid Vial) 20 mg STK-MED ONCE 12/31/18 07:05 12/31/18 07:06 DC Fentanyl Citrate (Fentanyl 2ml Vial) 100 mcg 1X ONCE 01/04/19 15:30 01/04/19 15:38 DC 01/04/19 15:30 100 MCG Glimepiride (Amaryl) 4 mg BIDAC 12/27/18 18:30 01/04/19 07:48 DC 01/03/19 18:02 4 MG Heparin Sodium (Porcine) (Heparin Sodium) 5,000 unit 1X ONCE 01/04/19 15:30 01/04/19 15:39 DC 01/04/19 15:30 7,000 UNIT Heparin Sodium/ Sodium Chloride (HEPARIN for ARTERIAL LINE FLUSH) 1,000 unit 1X ONCE 01/04/19 15:30 01/04/19 15:38 DC 01/04/19 15:30 1,000 UNIT Hydrochlorothiazide (Hydrodiuril) 25 mg DAILY 12/28/18 09:00 01/04/19 07:48 DC 01/03/19 09:30 25 MG Hydromorphone HCl (Dilaudid) 0.5 mg PRN Q10MIN PRN 12/31/18 07:00 01/01/19 06:59 DC Influenza Virus Vaccine (Afluria Trivalent [id number] Syringe) 0.5 ml ONCE ONCE 12/29/18 10:00 12/29/18 10:01 DC Info (CONTRAST GIVEN -- Rx MONITORING) 1 each PRN DAILY PRN 01/04/19 16:30 01/06/19 16:29 Insulin Glargine (Lantus) 18 units QHS 01/04/19 21:00 01/04/19 20:45 18 UNITS Insulin Human Lispro (HumaLOG) 0-9 UNITS TIDACHC 12/28/18 11:30 01/03/19 12:31 5 UNITS Iodixanol (Visipaque 320) 100 ml 1X ONCE 01/04/19 16:30 01/04/19 16:31 DC 01/04/19 16:30 80 ML Labetalol HCl (Normodyne Iv Push) 10 mg PRN Q2HR PRN 12/28/18 08:00 Lactobacillus Rhamnosus (Culturelle) 1 cap BID 12/29/18 21:00 01/04/19 20:32 1 CAP Levothyroxine Sodium (Synthroid) 50 mcg DAILY06 12/28/18 06:00 01/05/19 05:56 50 MCG Lidocaine HCl (Lidocaine 1% 20ml Vial) 20 ml 1X ONCE 01/04/19 15:30 01/04/19 15:39 DC 01/04/19 15:30 6 ML Lidocaine HCl (Lidocaine Pf 2% Vial) 5 ml STK-MED ONCE 12/31/18 07:05 12/31/18 07:06 DC Lidocaine HCl (Xylocaine 1% Pf 30ml Vial) 30 ml STK-MED ONCE 12/31/18 07:02 12/31/18 07:03 DC Lidocaine HCl (Xylocaine-Mpf 1% 2ml Vial) 2 ml PRN 1X PRN 12/31/18 07:00 01/01/19 06:59 DC Linezolid/Dextrose 300 ml @ 300 mls/hr Q12HR 12/29/18 15:00 01/04/19 20:32 300 MLS/HR Lorazepam (Ativan) 0.5 mg PRN Q6HRS PRN 01/01/19 23:00 01/03/19 22:12 0.5 MG Metoprolol Succinate (Toprol Xl) 25 mg DAILY 12/28/18 09:00 01/04/19 09:13 25 MG Midazolam HCl (Versed) 5 mg 1X ONCE 01/04/19 15:30 01/04/19 15:38 DC 01/04/19 15:30 2 MG Morphine Sulfate (Morphine Sulfate) 1 mg PRN Q10MIN PRN 12/31/18 07:00 01/01/19 06:59 DC Multivitamins (Thera M Plus) 1 tab DAILY 12/30/18 09:00 01/03/19 09:30 1 TAB Niacin (Slo-Niacin) 500 mg HS 12/27/18 21:00 01/04/19 20:32 500 MG Nitroglycerin (Nitroglycerin) 200 mcg 1X ONCE 12/30/18 10:15 12/30/18 10:16 DC 12/30/18 11:01 400 MCG Non-Formulary Medication (Dulaglutide (Trulicity)) 1.5 mg WEEKLY 01/03/19 09:00 UNV Ondansetron HCl (Zofran Odt) 4 mg PRN Q6HRS PRN 12/28/18 08:00 Ondansetron HCl (Zofran) 4 mg STK-MED ONCE 12/31/18 09:39 12/31/18 09:40 DC Piperacillin Sod/ Tazobactam Sod (Zosyn Per Pharmacy) 1 each PRN DAILY PRN 12/29/18 11:45 Piperacillin Sod/ Tazobactam Sod 3.375 gm/Sodium Chloride 50 ml @ 100 mls/hr Q6HRS 12/29/18 12:00 01/05/19 05:56 100 MLS/HR Potassium Chloride (Klor-Con) 20 meq 1X ONCE 01/04/19 08:30 01/04/19 08:31 DC Prochlorperazine Edisylate (Compazine) 10 mg STK-MED ONCE 12/31/18 08:57 12/31/18 08:58 DC Propofol 20 ml @ As Directed STK-MED ONCE 12/31/18 07:05 12/31/18 07:06 DC Protamine Sulfate (Protamine) 30 mg 1X ONCE 12/30/18 10:48 12/30/18 10:58 DC 12/30/18 10:48 30 MG Ringer's Solution 1,000 ml @ 30 mls/hr Q24H 12/31/18 07:00 12/31/18 18:59 DC Sodium Chloride 1,000 ml @ 75 mls/hr [id number] 01/03/19 12:00 01/04/19 18:16 75 MLS/HR Vitamin D (Vitamin D3) 5,000 unit DAILY 12/28/18 09:00 01/03/19 09:30 5,000 UNIT Labs: Lab Laboratory Tests Test 01/04/19 11:37 01/04/19 18:13 01/04/19 20:36 01/05/19 08:17 Glucose (Fingerstick) 122 mg/dL (70-99) 72 mg/dL (70-99) 124 mg/dL (70-99) 108 mg/dL (70-99) Objective: Assessment: Right foot cellulitis. Right foot all toes gangrene. s/p right leg angioplasty and TMA w/ primary closure on 12/31. Left big toe ulcer s/p debridement to level of bone and tendon on 12/31 PAD Jan 04 2019 S/P LEFT SFA angioplasty,S/P LEFT TIBIAL angioplasty Leukocytosis. Diabetes. Coronary artery disease. Renal insufficiency. Diarrhea C diff neg Plan: Plan of Care Zyvox, Zosyn Probiotics Wound care awaiting angioplasty midweek Supportive care D/w nursing JESSA CALLAHAN MD Jan 05, 2019 08:56
[2019-01-05] MEDS: ASPIRIN ENTERIC COATED 81 MG TABLET.DR. PO SCH (09:02)
[2019-01-05] MEDS: MULTIVITAMIN with MINERAL TABLET. PO SCH (09:02)
[2019-01-05] MEDS: LACTOBACILLUS RHAMNOSUS GG 1 CAPSULE. PO SCH ×2 (09:02→21:12)
[2019-01-05] MEDS: METOPROLOL SUCC 24HR ER 25 MG TAB.ER.24H. PO SCH (09:03)
[2019-01-05] MEDS: CLOPIDOGREL BISULFATE 75 MG TABLET PO SCH (09:03)
[2019-01-05] MEDS: CHOLECALCIFEROL (VITAMIN D3) 5,000 UNIT CAPSULE PO SCH (09:07)
--- NOTE | 2019-01-05 09:53 | PDOC ---
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 PMH of HTN, CVA , DM2 Pt was seen and examined this morning Pt was resting in bed with NAD Discussed with RN Per RN, further imaging and potential surgery scheduled for 01/06 Vitals Vitals Vital Signs Date Time Temp Pulse Resp B/P (MAP) Pulse Ox O2 Delivery O2 Flow Rate FiO2 01/05/19 09:03 78 150/71 01/05/19 07:58 Room Air 01/05/19 07:00 98.5 20 97 98.5 01/04/19 17:50 2.0 Physical Exam General: Alert, Oriented X3, Cooperative, No acute distress Heart: Regular rate, Normal S1, Normal S2, No murmurs Lungs: Clear Abdomen: Soft, No tenderness Extremities: No clubbing, No cyanosis, Other (R foot with bandage CDI, L foot with bandage on dorsal aspect of MCP joint) Skin: Other (R groin surgical access site has a clean/dry/intact dressing ) Labs LABS Laboratory Tests Test 01/04/19 11:37 01/04/19 18:13 01/04/19 20:36 01/05/19 08:17 Glucose (Fingerstick) 122 mg/dL (70-99) 72 mg/dL (70-99) 124 mg/dL (70-99) 108 mg/dL (70-99) Review of Systems Review of Systems Pt denies CP, SOB, PEARSON, dizziness, weakness, N/V/D Assessment and Plan Assessmemt and Plan Assessment dry gangrene, ischemic toes, atherosclerosis of kiana arteries of right leg with gangrene of all toes --> s/ p perc revascularization 01/02/19 --> 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 Labs Laboratory Tests Test 01/03/19 16:44 01/03/19 21:07 01/04/19 04:23 01/04/19 07:07 Glucose (Fingerstick) 126 mg/dL (70-99) 170 mg/dL (70-99) 103 mg/dL (70-99) Prothrombin Time 15.0 SEC (11.7-14.0) Prothromb Time International Ratio 1.2 (0.8-1.1) Sodium Level 143 mmol/L (136-145) Potassium Level 3.5 mmol/L (3.5-5.1) Chloride Level 103 mmol/L (98-107) Carbon Dioxide Level 23 mmol/L (21-32) Anion Gap 17 (6-14) Blood Urea Nitrogen 24 mg/dL (8-26) Creatinine 2.1 mg/dL (0.7-1.3) Estimated GFR (Cockcroft-Gault) 31.2 Glucose Level 119 mg/dL (70-99) Calcium Level 8.6 mg/dL (8.5-10.1) Test 01/04/19 11:37 01/04/19 18:13 01/04/19 20:36 01/05/19 08:17 Glucose (Fingerstick) 122 mg/dL (70-99) 72 mg/dL (70-99) 124 mg/dL (70-99) 108 mg/dL (70-99) Laboratory Tests Test 01/04/19 11:37 01/04/19 18:13 01/04/19 20:36 01/05/19 08:17 Glucose (Fingerstick) 122 mg/dL (70-99) 72 mg/dL (70-99) 124 mg/dL (70-99) 108 mg/dL (70-99) Medications Current Medications Insulin Human Lispro (HumaLOG) 0-9 UNITS TIDWMEALS SQ Last administered on 12/27 18:33; Start 12/27/18 at 17:00; Stop 12/28/18 at 07:59; Status DC Dextrose (Dextrose 50%-Water Syringe) 12.5 gm PRN Q15MIN PRN IV SEE COMMENTS; Start 12/27/18 at 16:45 Atorvastatin Calcium (Lipitor) 40 mg HS PO Last administered on 01/04/19 20:32 ; Start 12/27/18 at 21:00 Metoprolol Succinate (Toprol Xl) 25 mg DAILY PO Last administered on 01/05/19 09:03; Start 12/28/18 at 09:00 Niacin (Slo-Niacin) 500 mg HS PO Last administered on 01/04/19 20:32; Start at 21:00 Vitamin D (Vitamin D3) 5,000 unit DAILY PO Last administered on 01/05/19 09:07 ; Start 12/28/18 at 09:00 Non-Formulary Medication (Dulaglutide (Trulicity)) 1.5 mg WEEKLY SQ ; Start 01/03 at 09:00; Status UNV Glimepiride (Amaryl) 4 mg BIDAC PO Last administered on 01/03/19 18:02; Start 12/27/18 at 18:30; Stop 01/04/19 at 07:48; Status DC Hydrochlorothiazide (Hydrodiuril) 25 mg DAILY PO Last administered on 01/03/19 09:30; Start 12/28/18 at 09:00; Stop 01/04/19 at 07:48; Status DC Insulin Glargine (Lantus) 32 units QHS SQ Last administered on 01/03/19 22:15; Start 12/27/18 at 21:00; Stop 01/04/19 at 16:05; Status DC Levothyroxine Sodium (Synthroid) 50 mcg DAILY06 PO Last administered on 05:56; Start 12/28/18 at 06:00 Insulin Human Lispro (HumaLOG) 0-9 UNITS TIDACHC SQ Last administered on 12:31; Start 12/28/18 at 11:30 Labetalol HCl (Normodyne Iv Push) 10 mg PRN Q2HR PRN IVP HYPERTENSION, SEE COMMENTS; Start 12/28/18 at 08:00 Acetaminophen (Tylenol) 500 mg PRN Q6HRS PRN PO MILD PAIN / TEMP; Start at 08:00 Acetaminophen/ Codeine Phosphate (Tylenol #3) 1 tab PRN Q6HRS PRN PO MODERATE TO SEVERE PAIN Last administered on 01/02/19at 02:15; Start 12/28/18 at 08:00 Ondansetron HCl (Zofran) 4 mg PRN Q6HRS PRN IV NAUSEA/VOMITING; Start 12/28/18 at 08:00 Ondansetron HCl (Zofran Odt) 4 mg PRN Q6HRS PRN PO NAUSEA/VOMITING; Start 12/28 at 08:00 Sodium Chloride 1,000 ml @ 75 mls/hr 1X ONCE IV Last administered on at 15:23; Start 12/28/18 at 14:30; Stop 12/29/18 at 03:49; Status DC Sodium Chloride 500 ml @ 250 mls/hr 1X ONCE IV ; Start 12/29/18 at 11:00; Stop 12/29/18 at 12:51; Status DC Influenza Virus Vaccine (Afluria Trivalent [id number] Syringe) 0.5 ml ONCE ONCE VAX IM ; Start 12/29/18 at 10:00; Stop 12/29/18 at 10:01; Status DC Piperacillin Sod/ Tazobactam Sod (Zosyn Per Pharmacy) 1 each PRN DAILY PRN MC SEE COMMENTS; Start 12/29/18 at 11:45 Aspirin (Ecotrin) 81 mg DAILYWBKFT PO Last administered on 01/05/19at 09:02; Start 12/29/18 at 12:00 Piperacillin Sod/ Tazobactam Sod 3.375 gm/Sodium Chloride 50 ml @ 100 mls/hr Q6HRS IV Last administered on 01/05/19at 05:56; Start 12/29/18 at 12:00 Sodium Chloride 1,000 ml @ 75 mls/hr 1X ONCE IV Last administered on at 01:12; Start 12/30/18 at 00:00; Stop 12/30/18 at 13:19; Status DC Sodium Chloride 500 ml @ 250 mls/hr 1X ONCE IV Last administered on at 08:13; Start 12/30/18 at 09:30; Stop 12/30/18 at 11:29; Status DC Lactobacillus Rhamnosus (Culturelle) 1 cap BID PO Last administered on at 09:02; Start 12/29/18 at 21:00 Multivitamins (Thera M Plus) 1 tab DAILY PO Last administered on 01/05/19 09:02 ; Start 12/30/18 at 09:00 Linezolid/Dextrose 300 ml @ 300 mls/hr Q12HR IV Last administered on 01/05/19at 09:07; Start 12/29/18 at 15:00 Midazolam HCl (Versed) 5 mg STK-MED ONCE .ROUTE ; Start 12/30/18 at 08:07; Stop 12/30/18 at 08:08; Status DC Fentanyl Citrate (Fentanyl 2ml Vial) 100 mcg STK-MED ONCE .ROUTE ; Start at 08:07; Stop 12/30/18 at 08:08; Status DC Heparin Sodium (Porcine) (Heparin Sodium) 10,000 unit STK-MED ONCE .ROUTE ; Start 12/30/18 at 08:07; Stop 12/30/18 at 08:08; Status DC Iodixanol (Visipaque 320) 100 ml STK-MED ONCE .ROUTE ; Start 12/30/18 at 08:07; Stop 12/30/18 at 08:08; Status DC Lidocaine HCl (Lidocaine 1% 20ml Vial) 20 ml STK-MED ONCE .ROUTE ; Start at 08:07; Stop 12/30/18 at 08:08; Status DC Heparin Sodium/ Sodium Chloride 1,500 ml @ As Directed STK-MED ONCE .ROUTE ; Start 12/30/18 at 08:07; Stop 12/30/18 at 08:08; Status DC Heparin Sodium/ Sodium Chloride (HEPARIN for ARTERIAL LINE FLUSH) 1,000 unit 1X ONCE IART Last administered on 12/30/18at 10:53; Start 12/30/18 at 09:15; Stop 12/30/18 at 09:16; Status DC Midazolam HCl (Versed) 5 mg 1X ONCE IV Last administered on 12/30/18at 11:01; Start 12/30/18 at 09:15; Stop 12/30/18 at 09:16; Status DC Fentanyl Citrate (Fentanyl 2ml Vial) 100 mcg 1X ONCE IV Last administered on at 10:55; Start 12/30/18 at 09:15; Stop 12/30/18 at 09:16; Status DC Iodixanol (Visipaque 320) 100 ml 1X ONCE IART Last administered on 12/30/18at 11:01; Start 12/30/18 at 09:15; Stop 12/30/18 at 09:16; Status DC Lidocaine HCl (Lidocaine 1% 20ml Vial) 20 ml 1X ONCE INJ Last administered on 12/30/18at 11:01; Start 12/30/18 at 09:15; Stop 12/30/18 at 09:16; Status DC Iodixanol (Visipaque 320) 100 ml STK-MED ONCE .ROUTE ; Start 12/30/18 at 09:42; Stop 12/30/18 at 09:43; Status DC Heparin Sodium (Porcine) (Heparin Sodium) 6,000 unit 1X ONCE IV Last administered on 12/30/18at 11:00; Start 12/30/18 at 09:16; Stop 12/30/18 at 10:06 ; Status DC Lidocaine HCl (Lidocaine 1% 20ml Vial) 20 ml STK-MED ONCE .ROUTE ; Start at 10:06; Stop 12/30/18 at 10:07; Status DC Nitroglycerin (Nitroglycerin) 200 mcg 1X ONCE IART Last administered on at 11:01; Start 12/30/18 at 10:15; Stop 12/30/18 at 10:16; Status DC Protamine Sulfate (Protamine) 50 mg STK-MED ONCE IV ; Start 12/30/18 at 10:39; Stop 12/30/18 at 10:40; Status DC Protamine Sulfate (Protamine) 30 mg 1X ONCE IV Last administered on 12/30/18at 10:48; Start 12/30/18 at 10:48; Stop 12/30/18 at 10:58; Status DC Morphine Sulfate (Morphine Sulfate) 1 mg PRN Q10MIN PRN IV SEVERE PAIN; Start 12/31/18 at 07:00; Stop 01/01/19 at 06:59; Status DC Ringer's Solution 1,000 ml @ 30 mls/hr Q24H IV ; Start 12/31/18 at 07:00; Stop 12/31/18 at 18:59; Status DC Lidocaine HCl (Xylocaine-Mpf 1% 2ml Vial) 2 ml PRN 1X PRN ID PRIOR TO IV START ; Start 12/31/18 at 07:00; Stop 01/01/19 at 06:59; Status DC Hydromorphone HCl (Dilaudid) 0.5 mg PRN Q10MIN PRN IV SEV PAIN, Second choice; Start 12/31/18 at 07:00; Stop 01/01/19 at 06:59; Status DC Prochlorperazine Edisylate (Compazine) 5 mg PACU PRN PRN IV NAUSEA, MRX1 Last administered on 12/31/18at 09:31; Start 12/31/18 at 07:00; Stop 01/01/19 at 06:59 ; Status DC Lidocaine HCl (Xylocaine 1% Pf 30ml Vial) 30 ml STK-MED ONCE .ROUTE Last administered on 12/31/18at 07:18; Start 12/31/18 at 07:02; Stop 12/31/18 at 07:03 ; Status DC Lidocaine HCl (Xylocaine 1% Pf 30ml Vial) 30 ml STK-MED ONCE .ROUTE ; Start at 07:02; Stop 12/31/18 at 07:03; Status DC Bupivacaine HCl (Sensorcaine Mpf 0.5%) 30 ml STK-MED ONCE .ROUTE Last administered on 12/31/18at 07:18; Start 12/31/18 at 07:02; Stop 12/31/18 at 07:03 ; Status DC Ondansetron HCl (Zofran) 4 mg STK-MED ONCE .ROUTE ; Start 12/31/18 at 07:05; Stop 12/31/18 at 07:06; Status DC Lidocaine HCl (Lidocaine Pf 2% Vial) 5 ml STK-MED ONCE .ROUTE ; Start 12/31/18 at 07:05; Stop 12/31/18 at 07:06; Status DC Propofol 20 ml @ As Directed STK-MED ONCE IV ; Start 12/31/18 at 07:05; Stop at 07:06; Status DC Famotidine (Pepcid Vial) 20 mg STK-MED ONCE .ROUTE ; Start 12/31/18 at 07:05; Stop 12/31/18 at 07:06; Status DC Dexamethasone Sodium Phosphate (Decadron) 20 mg STK-MED ONCE .ROUTE ; Start at 07:05; Stop 12/31/18 at 07:06; Status Cancel Fentanyl Citrate (Fentanyl 2ml Vial) 100 mcg STK-MED ONCE .ROUTE ; Start at 07:06; Stop 12/31/18 at 07:07; Status DC Desflurane (Suprane) 60 ml STK-MED ONCE IH ; Start 12/31/18 at 08:45; Stop 12/31 at 08:46; Status DC Prochlorperazine Edisylate (Compazine) 10 mg STK-MED ONCE .ROUTE ; Start at 08:57; Stop 12/31/18 at 08:58; Status DC Ondansetron HCl (Zofran) 4 mg STK-MED ONCE .ROUTE ; Start 12/31/18 at 09:39; Stop 12/31/18 at 09:40; Status DC Sodium Chloride 1,000 ml @ 100 mls/hr Q10H IV ; Start 01/03/19 at 12:00; Stop at 12:00; Status DC Lorazepam (Ativan) 0.5 mg PRN Q6HRS PRN PO ANXIETY / AGITATION Last administered on 01/03/19at 22:12; Start 01/01/19 at 23:00 Clopidogrel Bisulfate (Plavix) 75 mg DAILYWBKFT PO Last administered on at 09:03; Start 01/02/19 at 14:00 Sodium Chloride 1,000 ml @ 75 mls/hr [id number] IV Last administered on 01/04/19at 18:16; Start 01/03/19 at 12:00 Potassium Chloride (Klor-Con) 20 meq 1X ONCE PO ; Start 01/04/19 at 08:30; Stop 01/04/19 at 08:31; Status DC Lidocaine HCl (Lidocaine 1% 20ml Vial) 20 ml STK-MED ONCE .ROUTE ; Start at 14:40; Stop 01/04/19 at 14:41; Status DC Heparin Sodium/ Sodium Chloride 500 ml @ As Directed STK-MED ONCE .ROUTE ; Start 01/04/19 at 14:40; Stop 01/04/19 at 14:41; Status DC Midazolam HCl (Versed) 5 mg STK-MED ONCE .ROUTE ; Start 01/04/19 at 14:44; Stop 01/04/19 at 14:45; Status DC Fentanyl Citrate (Fentanyl 2ml Vial) 100 mcg STK-MED ONCE .ROUTE ; Start at 14:45; Stop 01/04/19 at 14:46; Status DC Heparin Sodium (Porcine) (Heparin Sodium) 10,000 unit STK-MED ONCE .ROUTE ; Start 01/04/19 at 14:45; Stop 01/04/19 at 14:46; Status DC Heparin Sodium/ Sodium Chloride (HEPARIN for ARTERIAL LINE FLUSH) 1,000 unit 1X ONCE IART Last administered on 01/04/19 15:30; Start 01/04/19 at 15:30; Stop 01/04/19 at 15:38; Status DC Midazolam HCl (Versed) 5 mg 1X ONCE IV Last administered on 01/04/19 15:30; Start 01/04/19 at 15:30; Stop 01/04/19 at 15:38; Status DC Fentanyl Citrate (Fentanyl 2ml Vial) 100 mcg 1X ONCE IV Last administered on 15:30; Start 01/04/19 at 15:30; Stop 01/04/19 at 15:38; Status DC Iodixanol (Visipaque 320) 100 ml 1X ONCE IART ; Start 01/04/19 at 15:30; Stop at 15:56; Status DC Heparin Sodium (Porcine) (Heparin Sodium) 5,000 unit 1X ONCE IV Last administered on 01/04/19 15:30; Start 01/04/19 at 15:30; Stop 01/04/19 at 15:39; Status DC Lidocaine HCl (Lidocaine 1% 20ml Vial) 20 ml 1X ONCE INJ Last administered on 01/04/19 15:30; Start 01/04/19 at 15:30; Stop 01/04/19 at 15:39; Status DC Insulin Glargine (Lantus) 18 units QHS SQ Last administered on 01/04/19at 20:45; Start 01/04/19 at 21:00 Iodixanol (Visipaque 320) 100 ml 1X ONCE IART Last administered on 01/04/19at 16 :30; Start 01/04/19 at 16:30; Stop 01/04/19 at 16:31; Status DC Info (CONTRAST GIVEN -- Rx MONITORING) 1 each PRN DAILY PRN MC SEE COMMENTS; Start 01/04/19 at 16:30; Stop 01/06/19 at 16:29 Albuterol/ Ipratropium (Duoneb) 3 ml RTQID NEB ; Start 01/05/19 at 08:00; Stop at 08:00; Status DC Amlodipine Besylate (Norvasc) 5 mg DAILY PO ; Start 01/06/19 at 09:00; Status UNV Active Scripts Active Reported Cipro (Ciprofloxacin Hcl) 500 Mg Tablet 1 Tab PO BID Niaspan (Niacin) 500 Mg Tab.er.24h 500 Mg PO HS Hydrochlorothiazide Tablet (Hydrochlorothiazide) 12.5 Mg Tablet 25 Mg PO DAILY Metoprolol Succinate ( Xl ) (Metoprolol Succinate) 25 Mg Tab.er.24h 25 Mg PO DAILY Lipitor (Atorvastatin Calcium) 40 Mg Tablet 40 Mg PO HS Trulicity (Dulaglutide) 1.5 Mg/0.5 Ml Pen.injctr 1.5 Mg SQ WEEKLY Toujeo Solostar (Insulin Glargine,Hum.rec.anlog) 300 Unit/1 Ml Insuln.pen 40 Unit SQ HS Aspirin 81 Mg Tab.chew 81 Mg PO BID Glimepiride 4 Mg Tablet 4 Mg PO BIDAC Synthroid (Levothyroxine Sodium) 50 Mcg Tablet 50 Mcg PO DAILYAC Vitamin D3 (Cholecalciferol (Vitamin D3)) 5,000 Unit Tablet 5,000 Unit PO DAILY Vitals/I & O Vital Sign - Last 24 Hours 01/04/19 01/04/19 01/04/19 01/04/19 11:00 15:30 17:50 18:00 Temp 97.7 97.7 Pulse 70 73 74 Resp 18 14 14 B/P (MAP) 156/63 (94) 177/76 (109) Pulse Ox 100 100 100 O2 Delivery Room Air Nasal Cannula Nasal Cannula O2 Flow Rate 2.0 2.0 01/04/19 01/04/19 01/04/19 01/04/19 18:15 18:19 18:30 18:45 Temp 98.0 98.0 Pulse 72 68 70 70 Resp 18 B/P (MAP) 161/75 (103) 177/76 (109) 159/74 (102) 156/71 (99) Pulse Ox 96 O2 Delivery Room Air 01/04/19 01/04/19 01/04/19 01/04/19 19:25 20:00 20:05 20:35 Temp 97.5 97.5 Pulse 70 73 80 Resp 20 B/P (MAP) 145/66 (92) 171/72 (105) 168/72 (104) Pulse Ox 97 O2 Delivery Room Air Room Air 01/04/19 01/05/19 01/05/19 01/05/19 23:15 03:10 07:00 07:58 Temp 97.8 97.8 98.5 97.8 97.8 98.5 Pulse 77 82 81 Resp 18 20 20 B/P (MAP) 162/70 (100) 170/79 (109) 150/71 (97) Pulse Ox 97 97 97 O2 Delivery Room Air Room Air Room Air Room Air 01/05/19 09:03 Pulse 78 B/P (MAP) 150/71 Intake and Output 01/04/19 01/04/19 01/05/19 15:00 23:00 07:00 Intake Total 300 ml 350 ml Output Total 300 ml 600 ml Balance 0 ml -250 ml PATIENCE ACUÑA III DO Jan 05, 2019 09:53
[2019-01-05] MEDS: amLODIPine BESYLATE 5 MG TABLET PO SCH (10:13)
[2019-01-05 11:00] VITALS: BP 142/108
--- NOTE | 2019-01-05 11:49 | NUR ---
SS following for discharge planning. PT/OT recommended half-way unit at discharge. SS met with pt to discuss discharge planning and pt requested that SS contact his son and sister. SS contacted pt's son and sister and discussed. Pt's son reported that pt was previously at [facility] and was dissatisfied with care. Pt's son requested that half-way referral be sent to [facility] and [facility] in [place], [place]. SS phoned and faxed referral to [facility], ; fax [phone]. SS will await acceptance decision and insurance determination and will proceed accordingly. Pt's RN notified.
[2019-01-05 15:00] VITALS: BP 144/67
--- NOTE | 2019-01-05 15:22 | PDOC ---
Provider Note Provider Note He was sitting up on commode. Dressing intact on both feet. He is tentatively scheduled for left leg arterial intervention to optimize healing of the left foot wound. Continue local wound care. SEGUNDO VIZCAINO MD Jan 05, 2019 15:22
--- NOTE | 2019-01-05 16:56 | PDOC4 ---
OPERATIVE NOTE Date: Date: Jan 04, 2019 Pre-Op Diagnosis: Atherosclerosis of [place] arteries of left lower extremity with ulceration of the great toe (other part of the foot) Post-Op Diagnosis: Same as above Procedure Performed: #1 ultrasound-guided access right common femoral artery #2 left leg runoff radiologic supervision interpretation (carbon dioxide angiography) #3 left SFA angioplasty #4 left peroneal artery angioplasty Surgeon: Riley Rodriguez M.D. 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 After placement of appropriate monitoring devices a timeout was performed and sedation was induced under nurse and physician supervision. The groins were prepped and draped in usual sterile fashion. Attention was directed the right common femoral artery which is fluoroscopically marked over the femoral head and examined with ultrasound. The vessels found to be widely patent with good flow and an image of the vessel was taken and saved for the medical record. Under real-time ultrasound guidance local anesthetic was injected in the right groin and the right common femoral artery was accessed in retrograde fashion with a magalie puncture needle. The knee was used to place a magalie puncture wire and the iliac artery under fluoroscopic guidance and exchanged the needle for a stiff Inderjit puncture sheath which backbled easily. This was used to introduce a Cosme wire aorta and exchanged the sheath for a 5 Micronesian sheath was aspirated and flushed with difficulty. I used a rim catheter and Glidewire advantage to cross the aortic bifurcation and passed the catheter to the left common femoral artery. Carbon dioxide angiography was used to perform left leg runoff. I then advanced along ankle catheter over the Glidewire advantage to the left distal SFA and carbon dioxide and limited contrast tibial angiography was performed. Patient was given intravenous heparin and along stiff wire was used to exchange the 5 Micronesian sheath for a 6 Micronesian 90 cm Terumo destination sheath passed up and over the bifurcation with the distal tip in the left SFA adductor canal. 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 I was unable to reenter the dorsalis pedis the ankle. The catheter was pulled back and I used the wire to cross a peroneal artery stenosis/occlusion. The treated with balloon angioplasty with a 2.5 mm balloon with in-line flow to the ankle via the peroneal and collaterals to the DP and lateral tarsal branch of the posterior tibial. At this point felt like I given her enough contrast given the patient's elevated creatinine and I deferred pedal access for retrograde cannulation of the JULIO CESAR. We'll bring the patient back in a couple days for pedal access and likely JULIO CESAR recanalization via the DP. Sheath was removed over a stiff wire and a 6 Micronesian Angio-Seal device was inflated the right groin with excellent hemostasis. Patient was escorted to recovery in stable condition. No complications. He had excellent peroneal and dorsalis pedis signal and access site was soft without evidence computation RILEY RODRIGUEZ MD Jan 05, 2019 16:56
[2019-01-05] MEDS: IV NORMAL SALINE 1000ML BAG 1,000 ML IV SCH (17:20)
[2019-01-05 19:30] VITALS: BP 145/66
[2019-01-05] MEDS: NIACIN ER 500 MG TABLET.ER PO SCH (21:12)
[2019-01-05] MEDS: ATORVASTATIN CALCIUM 40 MG TABLET. PO SCH (21:12)
[2019-01-05] MEDS: INSULIN GLARGINE 300 UNITS/3 ML INSULN.PEN. SQ SCH (21:23)
[2019-01-05 23:05] VITALS: BP 152/66
[2019-01-06 03:50] VITALS: BP 117/56
[2019-01-06] MEDS: LEVOTHYROXINE 50 MCG TABLET PO SCH (05:27)
[2019-01-06] MEDS: PIPERACILLIN/TAZOBACTAM 3.375 GM in IV NORMAL SALINE 50ML 50 ML IV SCH ×3 (05:27→18:01)
[2019-01-06 05:28] LABS: ALBUMIN 1.8 g/dL (3.4-5.0); ALBUMIN/GLOBULIN RATIO 0.4 (1.0-1.7); CALCIUM 8.5 mg/dL (8.5-10.1); CREATININE 1.8 mg/dL (0.7-1.3); GFR 37.3; POTASSIUM 3.2 mmol/L (3.5-5.1); TOTAL BILIRUBIN 0.7 mg/dL (0.2-1.0); TOTAL PROTEIN 6.3 g/dL (6.4-8.2)
[2019-01-06 07:26] VITALS: BP 157/69
[2019-01-06] MEDS: INSULIN LISPRO 300 UNITS/3 ML INSULN.PEN. SQ SCH ×4 (07:30→21:00)
--- NOTE | 2019-01-06 08:53 | PDOC ---
Infectious Disease Note Subjective: Subjective pt says feels ok Appetite good Denies cramps/bloating/N/V or loss of appetite No F/C/S has some diarrhea ROS: ROS Negative except for above. Vital Signs: Vital Signs Vital Signs Date Time Temp Pulse Resp B/P (MAP) Pulse Ox O2 Delivery O2 Flow Rate FiO2 01/06/19 07:26 98.7 82 20 157/69 (98) 97 Room Air 98.7 Physical Exam: PHYSICAL EXAM GENERAL: Sitting in the chair, alert, NAD HEENT: Oral cavity clear NECK: Supple LUNGS: Clear. HEART: S1, S2 ABDOMEN: Obese, soft, NT, BS present EXTREMITIES: 2+ edema BLE. Right foot bandaged NEUROLOGIC: Alert, responds appropriately PIV ok Medications: Inpatient Meds: Current Medications Medications (Trade) Dose Ordered Sig/Zeeshan Start Time Stop Time Status Last Admin Dose Admin Acetaminophen (Tylenol) 500 mg PRN Q6HRS PRN 12/28/18 08:00 Acetaminophen/ Codeine Phosphate (Tylenol #3) 1 tab PRN Q6HRS PRN 12/28/18 08:00 01/02/19 02:15 1 TAB Albuterol/ Ipratropium (Duoneb) 3 ml RTQID 01/05/19 08:00 01/05/19 08:00 DC Amlodipine Besylate (Norvasc) 5 mg DAILY 01/05/19 10:30 01/05/19 10:13 5 MG Aspirin (Ecotrin) 81 mg [id number] 12/29/18 12:00 01/05/19 09:02 81 MG Atorvastatin Calcium (Lipitor) 40 mg HS 12/27/18 21:00 01/05/19 21:12 40 MG Bupivacaine HCl (Sensorcaine Mpf 0.5%) 30 ml STK-MED ONCE 12/31/18 07:02 12/31/18 07:03 DC 12/31/18 07:18 4 ML Clopidogrel Bisulfate (Plavix) 75 mg DAILYWBKFT 01/02/19 14:00 01/05/19 09:03 75 MG Desflurane (Suprane) 60 ml STK-MED ONCE 12/31/18 08:45 12/31/18 08:46 DC Dexamethasone Sodium Phosphate (Decadron) 20 mg STK-MED ONCE 12/31/18 07:05 12/31/18 07:06 Cancel Dextrose (Dextrose 50%-Water Syringe) 12.5 gm PRN Q15MIN PRN 12/27/18 16:45 01/06/19 08:06 12.5 GM Famotidine (Pepcid Vial) 20 mg STK-MED ONCE 12/31/18 07:05 12/31/18 07:06 DC Fentanyl Citrate (Fentanyl 2ml Vial) 100 mcg 1X ONCE 01/04/19 15:30 01/04/19 15:38 DC 01/04/19 15:30 100 MCG Glimepiride (Amaryl) 4 mg BIDAC 12/27/18 18:30 01/04/19 07:48 DC 01/03/19 18:02 4 MG Heparin Sodium (Porcine) (Heparin Sodium) 5,000 unit 1X ONCE 01/04/19 15:30 01/04/19 15:39 DC 01/04/19 15:30 7,000 UNIT Heparin Sodium/ Sodium Chloride (HEPARIN for ARTERIAL LINE FLUSH) 1,000 unit 1X ONCE 01/04/19 15:30 01/04/19 15:38 DC 01/04/19 15:30 1,000 UNIT Hydrochlorothiazide (Hydrodiuril) 25 mg DAILY 12/28/18 09:00 01/04/19 07:48 DC 01/03/19 09:30 25 MG Hydromorphone HCl (Dilaudid) 0.5 mg PRN Q10MIN PRN 12/31/18 07:00 01/01/19 06:59 DC Influenza Virus Vaccine (Afluria Trivalent 2619-6490 Syringe) 0.5 ml ONCE ONCE 12/29/18 10:00 12/29/18 10:01 DC Info (CONTRAST GIVEN -- Rx MONITORING) 1 each PRN DAILY PRN 01/04/19 16:30 01/06/19 16:29 Insulin Glargine (Lantus) 18 units QHS 01/04/19 21:00 01/05/19 21:23 18 UNITS Insulin Human Lispro (HumaLOG) 0-9 UNITS TIDACHC 12/28/18 11:30 01/05/19 17:30 4 UNITS Iodixanol (Visipaque 320) 100 ml 1X ONCE 01/04/19 16:30 01/04/19 16:31 DC 01/04/19 16:30 80 ML Labetalol HCl (Normodyne Iv Push) 10 mg PRN Q2HR PRN 12/28/18 08:00 Lactobacillus Rhamnosus (Culturelle) 1 cap BID 12/29/18 21:00 01/05/19 21:12 1 CAP Levothyroxine Sodium (Synthroid) 50 mcg DAILY06 12/28/18 06:00 01/06/19 05:27 50 MCG Lidocaine HCl (Lidocaine 1% 20ml Vial) 20 ml 1X ONCE 01/04/19 15:30 01/04/19 15:39 DC 01/04/19 15:30 6 ML Lidocaine HCl (Lidocaine Pf 2% Vial) 5 ml STK-MED ONCE 12/31/18 07:05 12/31/18 07:06 DC Lidocaine HCl (Xylocaine 1% Pf 30ml Vial) 30 ml STK-MED ONCE 12/31/18 07:02 12/31/18 07:03 DC Lidocaine HCl (Xylocaine-Mpf 1% 2ml Vial) 2 ml PRN 1X PRN 12/31/18 07:00 01/01/19 06:59 DC Linezolid/Dextrose 300 ml @ 300 mls/hr Q12HR 12/29/18 15:00 01/05/19 21:12 300 MLS/HR Lorazepam (Ativan) 0.5 mg PRN Q6HRS PRN 01/01/19 23:00 01/03/19 22:12 0.5 MG Metoprolol Succinate (Toprol Xl) 25 mg DAILY 12/28/18 09:00 01/05/19 09:03 25 MG Midazolam HCl (Versed) 5 mg 1X ONCE 01/04/19 15:30 01/04/19 15:38 DC 01/04/19 15:30 2 MG Morphine Sulfate (Morphine Sulfate) 1 mg PRN Q10MIN PRN 12/31/18 07:00 01/01/19 06:59 DC Multivitamins (Thera M Plus) 1 tab DAILY 12/30/18 09:00 01/05/19 09:02 1 TAB Niacin (Slo-Niacin) 500 mg HS 12/27/18 21:00 01/05/19 21:12 500 MG Nitroglycerin (Nitroglycerin) 200 mcg 1X ONCE 12/30/18 10:15 12/30/18 10:16 DC 12/30/18 11:01 400 MCG Non-Formulary Medication (Dulaglutide (Trulicity)) 1.5 mg WEEKLY 01/03/19 09:00 UNV Ondansetron HCl (Zofran Odt) 4 mg PRN Q6HRS PRN 12/28/18 08:00 Ondansetron HCl (Zofran) 4 mg STK-MED ONCE 12/31/18 09:39 12/31/18 09:40 DC Piperacillin Sod/ Tazobactam Sod (Zosyn Per Pharmacy) 1 each PRN DAILY PRN 12/29/18 11:45 Piperacillin Sod/ Tazobactam Sod 3.375 gm/Sodium Chloride 50 ml @ 100 mls/hr Q6HRS 12/29/18 12:00 01/06/19 05:27 100 MLS/HR Potassium Chloride (Klor-Con) 20 meq 1X ONCE 01/04/19 08:30 01/04/19 08:31 DC Prochlorperazine Edisylate (Compazine) 10 mg STK-MED ONCE 12/31/18 08:57 12/31/18 08:58 DC Propofol 20 ml @ As Directed STK-MED ONCE 12/31/18 07:05 12/31/18 07:06 DC Protamine Sulfate (Protamine) 30 mg 1X ONCE 12/30/18 10:48 12/30/18 10:58 DC 12/30/18 10:48 30 MG Ringer's Solution 1,000 ml @ 30 mls/hr Q24H 12/31/18 07:00 12/31/18 18:59 DC Sodium Chloride 1,000 ml @ 75 mls/hr [id number] 01/03/19 12:00 01/05/19 18:17 DC 01/04/19 18:16 75 MLS/HR Vitamin D (Vitamin D3) 5,000 unit DAILY 12/28/18 09:00 01/05/19 09:07 5,000 UNIT Labs: Lab Laboratory Tests Test 01/05/19 12:07 01/05/19 17:24 01/05/19 21:19 01/06/19 04:25 Glucose (Fingerstick) 198 mg/dL (70-99) 168 mg/dL (70-99) 128 mg/dL (70-99) Sodium Level 142 mmol/L (136-145) Potassium Level 3.2 mmol/L (3.5-5.1) Chloride Level 104 mmol/L (98-107) Carbon Dioxide Level 28 mmol/L (21-32) Anion Gap 10 (6-14) Blood Urea Nitrogen 22 mg/dL (8-26) Creatinine 1.8 mg/dL (0.7-1.3) Estimated GFR (Cockcroft-Gault) 37.3 BUN/Creatinine Ratio 12 (6-20) Glucose Level 61 mg/dL (70-99) Calcium Level 8.5 mg/dL (8.5-10.1) Total Bilirubin 0.7 mg/dL (0.2-1.0) Aspartate Amino Transf (AST/SGOT) 18 U/L (15-37) Alanine Aminotransferase (ALT/SGPT) 15 U/L (16-63) Alkaline Phosphatase 68 U/L (46-116) Total Protein 6.3 g/dL (6.4-8.2) Albumin 1.8 g/dL (3.4-5.0) Albumin/Globulin Ratio 0.4 (1.0-1.7) Test 01/06/19 07:09 01/06/19 08:04 Glucose (Fingerstick) 51 mg/dL (70-99) 55 mg/dL (70-99) Objective: Assessment: Right foot cellulitis. Right foot all toes gangrene. s/p right leg angioplasty and TMA w/ primary closure on 12/31. Left big toe ulcer s/p debridement to level of bone and tendon on 12/31 PAD Jan 04 2019 S/P LEFT SFA angioplasty,S/P LEFT TIBIAL angioplasty Leukocytosis. Diabetes. Coronary artery disease. Renal insufficiency. Diarrhea C diff neg Plan: Plan of Care Zyvox, Zosyn Probiotics Wound care awaiting Lt arterial intervention Supportive care D/w nursing JESSA CALLAHAN MD Jan 06, 2019 08:53
--- NOTE | 2019-01-06 08:55 | PDOC ---
Provider Note Provider Note Vascular S: Patient without complaints. O: AF VSS awake and alert right TMA incision intact with sutures, mild improving erythema on dorsal foot, minimal bloody drainage, Doppler DP and PT left 1st toe ulcer, Doppler DP and PT Cr. 1.8 A/P: s/p right leg arterial angioplasty and closed TMA - dry dressing to the right foot daily, dressing care to left toe ulcer - left SFA and peroneal artery angioplasty - possible left pedal access with tibial angioplasty planned tentatively for tomorrow with Dr. Yung - aspirin and plavix - antibiotics per CHRISTIE RIGGS APRN Jan 06, 2019 08:55
[2019-01-06] MEDS: ASPIRIN ENTERIC COATED 81 MG TABLET.DR. PO SCH (10:03)
[2019-01-06] MEDS: CLOPIDOGREL BISULFATE 75 MG TABLET PO SCH (10:03)
[2019-01-06] MEDS: CHOLECALCIFEROL (VITAMIN D3) 5,000 UNIT CAPSULE PO SCH (10:03)
[2019-01-06] MEDS: MULTIVITAMIN with MINERAL TABLET. PO SCH (10:04)
[2019-01-06] MEDS: amLODIPine BESYLATE 5 MG TABLET PO SCH (10:04)
[2019-01-06] MEDS: METOPROLOL SUCC 24HR ER 25 MG TAB.ER.24H. PO SCH (10:04)
[2019-01-06] MEDS: LACTOBACILLUS RHAMNOSUS GG 1 CAPSULE. PO SCH ×2 (10:04→19:41)
[2019-01-06 10:52] VITALS: BP 128/44
[2019-01-06] MEDS ORDERED: POTASSIUM CHLORIDE 20 MEQ TABLET.ER. PO ONE (11:30)
--- NOTE | 2019-01-06 12:21 | PDOC2 ---
CONSULT Date of Consult Date of Consult DATE: 01/06/19 TIME: 12:11 History of Present Illness Reason for Visit: Pt was transferred from ER at [facility] to [facility], has been hospitalized since 12/27 with c/o toes on his right foot had turned black, denied any pain. He describes injuring them trying to nahed them into a shoe He has some expressive aphasia from prior CVA.He has Dx of DM2 poor control He states currently he feels ok, Appetite good Denies N/V ,No F/C/S. has some diarrhea s/p right leg angioplasty and TMA w/ primary closure on 12/31. Left big toe ulcer s/p debridement to level of bone and tendon on 12/31 S/P LEFT SFA angioplasty,S/P LEFT TIBIAL angioplasty 01/04/2019 Renal consulted today for CKD, he was seen in my office in Sep 2018 Past Medical History Cardiovascular: HTN CENTRAL NERVOUS SYSTEM: CVA Endocrine: Diabetes Past Surgical History Past Surgical History: Other Family History Family History: Diabetes Social History ALCOHOL: none Current Medications Current Medications Current Medications Insulin Human Lispro (HumaLOG) 0-9 UNITS TIDWMEALS SQ Last administered on 12/27 18:33; Start 12/27/18 at 17:00; Stop 12/28/18 at 07:59; Status DC Dextrose (Dextrose 50%-Water Syringe) 12.5 gm PRN Q15MIN PRN IV SEE COMMENTS Last administered on 01/06/19at 08:06; Start 12/27/18 at 16:45 Atorvastatin Calcium (Lipitor) 40 mg HS PO Last administered on 01/05/19at 21:12 ; Start 12/27/18 at 21:00 Metoprolol Succinate (Toprol Xl) 25 mg DAILY PO Last administered on 01/06/19at 10:04; Start 12/28/18 at 09:00 Niacin (Slo-Niacin) 500 mg HS PO Last administered on 01/05/19 21:12; Start at 21:00 Vitamin D (Vitamin D3) 5,000 unit DAILY PO Last administered on 01/06/19at 10:03 ; Start 12/28/18 at 09:00 Non-Formulary Medication (Dulaglutide (Trulicity)) 1.5 mg WEEKLY SQ ; Start 01/03 at 09:00; Status UNV Glimepiride (Amaryl) 4 mg BIDAC PO Last administered on 01/03/19 18:02; Start 12/27/18 at 18:30; Stop 01/04/19 at 07:48; Status DC Hydrochlorothiazide (Hydrodiuril) 25 mg DAILY PO Last administered on 01/03/19 09:30; Start 12/28/18 at 09:00; Stop 01/04/19 at 07:48; Status DC Insulin Glargine (Lantus) 32 units QHS SQ Last administered on 01/03/19at 22:15; Start 12/27/18 at 21:00; Stop 01/04/19 at 16:05; Status DC Levothyroxine Sodium (Synthroid) 50 mcg DAILY06 PO Last administered on at 05:27; Start 12/28/18 at 06:00 Insulin Human Lispro (HumaLOG) 0-9 UNITS TIDACHC SQ Last administered on at 17:30; Start 12/28/18 at 11:30 Labetalol HCl (Normodyne Iv Push) 10 mg PRN Q2HR PRN IVP HYPERTENSION, SEE COMMENTS; Start 12/28/18 at 08:00 Acetaminophen (Tylenol) 500 mg PRN Q6HRS PRN PO MILD PAIN / TEMP; Start at 08:00 Acetaminophen/ Codeine Phosphate (Tylenol #3) 1 tab PRN Q6HRS PRN PO MODERATE TO SEVERE PAIN Last administered on 01/02/19at 02:15; Start 12/28/18 at 08:00 Ondansetron HCl (Zofran) 4 mg PRN Q6HRS PRN IV NAUSEA/VOMITING; Start 12/28/18 at 08:00 Ondansetron HCl (Zofran Odt) 4 mg PRN Q6HRS PRN PO NAUSEA/VOMITING; Start 12/28 at 08:00 Sodium Chloride 1,000 ml @ 75 mls/hr 1X ONCE IV Last administered on at 15:23; Start 12/28/18 at 14:30; Stop 12/29/18 at 03:49; Status DC Sodium Chloride 500 ml @ 250 mls/hr 1X ONCE IV ; Start 12/29/18 at 11:00; Stop 12/29/18 at 12:51; Status DC Influenza Virus Vaccine (Afluria Trivalent [id number] Syringe) 0.5 ml ONCE ONCE VAX IM ; Start 12/29/18 at 10:00; Stop 12/29/18 at 10:01; Status DC Piperacillin Sod/ Tazobactam Sod (Zosyn Per Pharmacy) 1 each PRN DAILY PRN MC SEE COMMENTS; Start 12/29/18 at 11:45 Aspirin (Ecotrin) 81 mg DAILYWBKFT PO Last administered on 01/06/19at 10:03; Start 12/29/18 at 12:00 Piperacillin Sod/ Tazobactam Sod 3.375 gm/Sodium Chloride 50 ml @ 100 mls/hr Q6HRS IV Last administered on 01/06/19at 05:27; Start 12/29/18 at 12:00 Sodium Chloride 1,000 ml @ 75 mls/hr 1X ONCE IV Last administered on at 01:12; Start 12/30/18 at 00:00; Stop 12/30/18 at 13:19; Status DC Sodium Chloride 500 ml @ 250 mls/hr 1X ONCE IV Last administered on at 08:13; Start 12/30/18 at 09:30; Stop 12/30/18 at 11:29; Status DC Lactobacillus Rhamnosus (Culturelle) 1 cap BID PO Last administered on at 10:04; Start 12/29/18 at 21:00 Multivitamins (Thera M Plus) 1 tab DAILY PO Last administered on 01/06/19at 10:04 ; Start 12/30/18 at 09:00 Linezolid/Dextrose 300 ml @ 300 mls/hr Q12HR IV Last administered on 01/06/19at 10:04; Start 12/29/18 at 15:00 Midazolam HCl (Versed) 5 mg STK-MED ONCE .ROUTE ; Start 12/30/18 at 08:07; Stop 12/30/18 at 08:08; Status DC Fentanyl Citrate (Fentanyl 2ml Vial) 100 mcg STK-MED ONCE .ROUTE ; Start at 08:07; Stop 12/30/18 at 08:08; Status DC Heparin Sodium (Porcine) (Heparin Sodium) 10,000 unit STK-MED ONCE .ROUTE ; Start 12/30/18 at 08:07; Stop 12/30/18 at 08:08; Status DC Iodixanol (Visipaque 320) 100 ml STK-MED ONCE .ROUTE ; Start 12/30/18 at 08:07; Stop 12/30/18 at 08:08; Status DC Lidocaine HCl (Lidocaine 1% 20ml Vial) 20 ml STK-MED ONCE .ROUTE ; Start at 08:07; Stop 12/30/18 at 08:08; Status DC Heparin Sodium/ Sodium Chloride 1,500 ml @ As Directed STK-MED ONCE .ROUTE ; Start 12/30/18 at 08:07; Stop 12/30/18 at 08:08; Status DC Heparin Sodium/ Sodium Chloride (HEPARIN for ARTERIAL LINE FLUSH) 1,000 unit 1X ONCE IART Last administered on 12/30/18at 10:53; Start 12/30/18 at 09:15; Stop 12/30/18 at 09:16; Status DC Midazolam HCl (Versed) 5 mg 1X ONCE IV Last administered on 12/30/18at 11:01; Start 12/30/18 at 09:15; Stop 12/30/18 at 09:16; Status DC Fentanyl Citrate (Fentanyl 2ml Vial) 100 mcg 1X ONCE IV Last administered on at 10:55; Start 12/30/18 at 09:15; Stop 12/30/18 at 09:16; Status DC Iodixanol (Visipaque 320) 100 ml 1X ONCE IART Last administered on 12/30/18at 11:01; Start 12/30/18 at 09:15; Stop 12/30/18 at 09:16; Status DC Lidocaine HCl (Lidocaine 1% 20ml Vial) 20 ml 1X ONCE INJ Last administered on 12/30/18at 11:01; Start 12/30/18 at 09:15; Stop 12/30/18 at 09:16; Status DC Iodixanol (Visipaque 320) 100 ml STK-MED ONCE .ROUTE ; Start 12/30/18 at 09:42; Stop 12/30/18 at 09:43; Status DC Heparin Sodium (Porcine) (Heparin Sodium) 6,000 unit 1X ONCE IV Last administered on 12/30/18at 11:00; Start 12/30/18 at 09:16; Stop 12/30/18 at 10:06 ; Status DC Lidocaine HCl (Lidocaine 1% 20ml Vial) 20 ml STK-MED ONCE .ROUTE ; Start at 10:06; Stop 12/30/18 at 10:07; Status DC Nitroglycerin (Nitroglycerin) 200 mcg 1X ONCE IART Last administered on at 11:01; Start 12/30/18 at 10:15; Stop 12/30/18 at 10:16; Status DC Protamine Sulfate (Protamine) 50 mg STK-MED ONCE IV ; Start 12/30/18 at 10:39; Stop 12/30/18 at 10:40; Status DC Protamine Sulfate (Protamine) 30 mg 1X ONCE IV Last administered on 12/30/18at 10:48; Start 12/30/18 at 10:48; Stop 12/30/18 at 10:58; Status DC Morphine Sulfate (Morphine Sulfate) 1 mg PRN Q10MIN PRN IV SEVERE PAIN; Start 12/31/18 at 07:00; Stop 01/01/19 at 06:59; Status DC Ringer's Solution 1,000 ml @ 30 mls/hr Q24H IV ; Start 12/31/18 at 07:00; Stop 12/31/18 at 18:59; Status DC Lidocaine HCl (Xylocaine-Mpf 1% 2ml Vial) 2 ml PRN 1X PRN ID PRIOR TO IV START ; Start 12/31/18 at 07:00; Stop 01/01/19 at 06:59; Status DC Hydromorphone HCl (Dilaudid) 0.5 mg PRN Q10MIN PRN IV SEV PAIN, Second choice; Start 12/31/18 at 07:00; Stop 01/01/19 at 06:59; Status DC Prochlorperazine Edisylate (Compazine) 5 mg PACU PRN PRN IV NAUSEA, MRX1 Last administered on 12/31/18at 09:31; Start 12/31/18 at 07:00; Stop 01/01/19 at 06:59 ; Status DC Lidocaine HCl (Xylocaine 1% Pf 30ml Vial) 30 ml STK-MED ONCE .ROUTE Last administered on 12/31/18at 07:18; Start 12/31/18 at 07:02; Stop 12/31/18 at 07:03 ; Status DC Lidocaine HCl (Xylocaine 1% Pf 30ml Vial) 30 ml STK-MED ONCE .ROUTE ; Start at 07:02; Stop 12/31/18 at 07:03; Status DC Bupivacaine HCl (Sensorcaine Mpf 0.5%) 30 ml STK-MED ONCE .ROUTE Last administered on 12/31/18at 07:18; Start 12/31/18 at 07:02; Stop 12/31/18 at 07:03 ; Status DC Ondansetron HCl (Zofran) 4 mg STK-MED ONCE .ROUTE ; Start 12/31/18 at 07:05; Stop 12/31/18 at 07:06; Status DC Lidocaine HCl (Lidocaine Pf 2% Vial) 5 ml STK-MED ONCE .ROUTE ; Start 12/31/18 at 07:05; Stop 12/31/18 at 07:06; Status DC Propofol 20 ml @ As Directed STK-MED ONCE IV ; Start 12/31/18 at 07:05; Stop at 07:06; Status DC Famotidine (Pepcid Vial) 20 mg STK-MED ONCE .ROUTE ; Start 12/31/18 at 07:05; Stop 12/31/18 at 07:06; Status DC Dexamethasone Sodium Phosphate (Decadron) 20 mg STK-MED ONCE .ROUTE ; Start at 07:05; Stop 12/31/18 at 07:06; Status Cancel Fentanyl Citrate (Fentanyl 2ml Vial) 100 mcg STK-MED ONCE .ROUTE ; Start at 07:06; Stop 12/31/18 at 07:07; Status DC Desflurane (Suprane) 60 ml STK-MED ONCE IH ; Start 12/31/18 at 08:45; Stop 12/31 at 08:46; Status DC Prochlorperazine Edisylate (Compazine) 10 mg STK-MED ONCE .ROUTE ; Start at 08:57; Stop 12/31/18 at 08:58; Status DC Ondansetron HCl (Zofran) 4 mg STK-MED ONCE .ROUTE ; Start 12/31/18 at 09:39; Stop 12/31/18 at 09:40; Status DC Sodium Chloride 1,000 ml @ 100 mls/hr Q10H IV ; Start 01/03/19 at 12:00; Stop at 12:00; Status DC Lorazepam (Ativan) 0.5 mg PRN Q6HRS PRN PO ANXIETY / AGITATION Last administered on 01/03/19at 22:12; Start 01/01/19 at 23:00 Clopidogrel Bisulfate (Plavix) 75 mg DAILYWBKFT PO Last administered on at 10:03; Start 01/02/19 at 14:00 Sodium Chloride 1,000 ml @ 75 mls/hr [id number] IV Last administered on 01/04/19at 18:16; Start 01/03/19 at 12:00; Stop 01/05/19 at 18:17; Status DC Potassium Chloride (Klor-Con) 20 meq 1X ONCE PO ; Start 01/04/19 at 08:30; Stop 01/04/19 at 08:31; Status DC Lidocaine HCl (Lidocaine 1% 20ml Vial) 20 ml STK-MED ONCE .ROUTE ; Start at 14:40; Stop 01/04/19 at 14:41; Status DC Heparin Sodium/ Sodium Chloride 500 ml @ As Directed STK-MED ONCE .ROUTE ; Start 01/04/19 at 14:40; Stop 01/04/19 at 14:41; Status DC Midazolam HCl (Versed) 5 mg STK-MED ONCE .ROUTE ; Start 01/04/19 at 14:44; Stop 01/04/19 at 14:45; Status DC Fentanyl Citrate (Fentanyl 2ml Vial) 100 mcg STK-MED ONCE .ROUTE ; Start at 14:45; Stop 01/04/19 at 14:46; Status DC Heparin Sodium (Porcine) (Heparin Sodium) 10,000 unit STK-MED ONCE .ROUTE ; Start 01/04/19 at 14:45; Stop 01/04/19 at 14:46; Status DC Heparin Sodium/ Sodium Chloride (HEPARIN for ARTERIAL LINE FLUSH) 1,000 unit 1X ONCE IART Last administered on 01/04/19at 15:30; Start 01/04/19 at 15:30; Stop 01/04/19 at 15:38; Status DC Midazolam HCl (Versed) 5 mg 1X ONCE IV Last administered on 01/04/19 15:30; Start 01/04/19 at 15:30; Stop 01/04/19 at 15:38; Status DC Fentanyl Citrate (Fentanyl 2ml Vial) 100 mcg 1X ONCE IV Last administered on 15:30; Start 01/04/19 at 15:30; Stop 01/04/19 at 15:38; Status DC Iodixanol (Visipaque 320) 100 ml 1X ONCE IART ; Start 01/04/19 at 15:30; Stop at 15:56; Status DC Heparin Sodium (Porcine) (Heparin Sodium) 5,000 unit 1X ONCE IV Last administered on 01/04/19 15:30; Start 01/04/19 at 15:30; Stop 01/04/19 at 15:39; Status DC Lidocaine HCl (Lidocaine 1% 20ml Vial) 20 ml 1X ONCE INJ Last administered on 01/04/19 15:30; Start 01/04/19 at 15:30; Stop 01/04/19 at 15:39; Status DC Insulin Glargine (Lantus) 18 units QHS SQ Last administered on 01/05/19 21:23; Start 01/04/19 at 21:00 Iodixanol (Visipaque 320) 100 ml 1X ONCE IART Last administered on 01/04/19 16 :30; Start 01/04/19 at 16:30; Stop 01/04/19 at 16:31; Status DC Info (CONTRAST GIVEN -- Rx MONITORING) 1 each PRN DAILY PRN MC SEE COMMENTS; Start 01/04/19 at 16:30; Stop 01/06/19 at 16:29 Albuterol/ Ipratropium (Duoneb) 3 ml RTQID NEB ; Start 01/05/19 at 08:00; Stop at 08:00; Status DC Amlodipine Besylate (Norvasc) 5 mg DAILY PO Last administered on 01/06/19at 10:04 ; Start 01/05/19 at 10:30 Sodium Chloride 1,000 ml @ 75 mls/hr [id number] IV ; Start 01/06/19 at 18:00 Potassium Chloride (Klor-Con) 40 meq 1X ONCE PO ; Start 01/06/19 at 11:30; Stop 01/06/19 at 11:37; Status DC Active Scripts Active Reported Cipro (Ciprofloxacin Hcl) 500 Mg Tablet 1 Tab PO BID Niaspan (Niacin) 500 Mg Tab.er.24h 500 Mg PO HS Hydrochlorothiazide Tablet (Hydrochlorothiazide) 12.5 Mg Tablet 25 Mg PO DAILY Metoprolol Succinate ( Xl ) (Metoprolol Succinate) 25 Mg Tab.er.24h 25 Mg PO DAILY Lipitor (Atorvastatin Calcium) 40 Mg Tablet 40 Mg PO HS Trulicity (Dulaglutide) 1.5 Mg/0.5 Ml Pen.injctr 1.5 Mg SQ WEEKLY Toujeo Solostar (Insulin Glargine,Hum.rec.anlog) 300 Unit/1 Ml Insuln.pen 40 Unit SQ HS Aspirin 81 Mg Tab.chew 81 Mg PO BID Glimepiride 4 Mg Tablet 4 Mg PO BIDAC Synthroid (Levothyroxine Sodium) 50 Mcg Tablet 50 Mcg PO DAILYAC Vitamin D3 (Cholecalciferol (Vitamin D3)) 5,000 Unit Tablet 5,000 Unit PO DAILY Allergies Allergies: Coded Allergies: No Known Drug Allergies (Unverified , 04/10/17) ROS Review of System As per HPI Physical Exam Physical Exam GENERAL: NAD HEENT: Oral cavity clear NECK: Supple LUNGS: Clear. HEART: S1, S2 ABDOMEN: Obese, soft, NT, EXTREMITIES: 2+ edema BLE. Right foot bandaged NEUROLOGIC: Alert, responds appropriately - No [place] Skin No RASH Vital Signs Vital Signs Date Time Temp Pulse Resp B/P (MAP) Pulse Ox O2 Delivery O2 Flow Rate FiO2 01/06/19 10:52 98.0 72 20 128/44 (72) 99 Room Air 98.0 01/04/19 17:50 2.0 Assessment & Plan CKD 3- Renal function at baseline Follows with us, last seen by me in Sep 2018 Baseline Cr 1.8-2 with egFR cw stage 3 Hypokalemia- Mild Replace as needed Right foot cellulitis- On Abx Right foot all toes gangrene. s/p right leg angioplasty and TMA w/ primary closure on 12/31. Left big toe ulcer s/p debridement to level of bone and tendon on 12/31 PAD Jan 04 2019 S/P LEFT SFA angioplasty,S/P LEFT TIBIAL angioplasty Diabetes- as per Primary Coronary artery disease. Diarrhea C diff neg Discussed with pt and RN at bedside Labs Labs Laboratory Tests Test 01/04/19 18:13 01/04/19 20:36 01/05/19 08:17 01/05/19 12:07 Glucose (Fingerstick) 72 mg/dL (70-99) 124 mg/dL (70-99) 108 mg/dL (70-99) 198 mg/dL (70-99) Test 01/05/19 17:24 01/05/19 21:19 01/06/19 04:25 01/06/19 07:09 Glucose (Fingerstick) 168 mg/dL (70-99) 128 mg/dL (70-99) 51 mg/dL (70-99) Sodium Level 142 mmol/L (136-145) Potassium Level 3.2 mmol/L (3.5-5.1) Chloride Level 104 mmol/L (98-107) Carbon Dioxide Level 28 mmol/L (21-32) Anion Gap 10 (6-14) Blood Urea Nitrogen 22 mg/dL (8-26) Creatinine 1.8 mg/dL (0.7-1.3) Estimated GFR (Cockcroft-Gault) 37.3 BUN/Creatinine Ratio 12 (6-20) Glucose Level 61 mg/dL (70-99) Calcium Level 8.5 mg/dL (8.5-10.1) Total Bilirubin 0.7 mg/dL (0.2-1.0) Aspartate Amino Transf (AST/SGOT) 18 U/L (15-37) Alanine Aminotransferase (ALT/SGPT) 15 U/L (16-63) Alkaline Phosphatase 68 U/L (46-116) Total Protein 6.3 g/dL (6.4-8.2) Albumin 1.8 g/dL (3.4-5.0) Albumin/Globulin Ratio 0.4 (1.0-1.7) Test 01/06/19 08:04 01/06/19 08:50 Glucose (Fingerstick) 55 mg/dL (70-99) 120 mg/dL (70-99) Laboratory Tests Test 01/05/19 17:24 01/05/19 21:19 01/06/19 04:25 01/06/19 07:09 Glucose (Fingerstick) 168 mg/dL (70-99) 128 mg/dL (70-99) 51 mg/dL (70-99) Sodium Level 142 mmol/L (136-145) Potassium Level 3.2 mmol/L (3.5-5.1) Chloride Level 104 mmol/L (98-107) Carbon Dioxide Level 28 mmol/L (21-32) Anion Gap 10 (6-14) Blood Urea Nitrogen 22 mg/dL (8-26) Creatinine 1.8 mg/dL (0.7-1.3) Estimated GFR (Cockcroft-Gault) 37.3 BUN/Creatinine Ratio 12 (6-20) Glucose Level 61 mg/dL (70-99) Calcium Level 8.5 mg/dL (8.5-10.1) Total Bilirubin 0.7 mg/dL (0.2-1.0) Aspartate Amino Transf (AST/SGOT) 18 U/L (15-37) Alanine Aminotransferase (ALT/SGPT) 15 U/L (16-63) Alkaline Phosphatase 68 U/L (46-116) Total Protein 6.3 g/dL (6.4-8.2) Albumin 1.8 g/dL (3.4-5.0) Albumin/Globulin Ratio 0.4 (1.0-1.7) Test 01/06/19 08:04 01/06/19 08:50 Glucose (Fingerstick) 55 mg/dL (70-99) 120 mg/dL (70-99) Review All relevant outside records, renal labs, imaging studies, telemetry/EKG's were reviewed. RICHIE GONZALEZ MD Jan 06, 2019 12:21
--- NOTE | 2019-01-06 12:35 | PDOC ---
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 PMH of HTN, CVA , DM2 Pt was seen and examined this morning Pt was resting in bed with NAD Discussed with RN Further imaging of LLE scheduled for today Vitals Vitals Vital Signs Date Time Temp Pulse Resp B/P (MAP) Pulse Ox O2 Delivery O2 Flow Rate FiO2 01/06/19 10:52 98.0 72 20 128/44 (72) 99 Room Air 98.0 Physical Exam General: Alert, Oriented X3, Cooperative, No acute distress Heart: Regular rate, Normal S1, Normal S2, No murmurs Lungs: Clear Abdomen: Soft, No tenderness Extremities: No clubbing, No cyanosis, Other (R foot with bandage CDI, L foot with bandage on dorsal aspect of MCP joint) Skin: Other (R groin surgical access site has a clean/dry/intact dressing ) Labs LABS Laboratory Tests Test 01/05/19 17:24 01/05/19 21:19 01/06/19 04:25 01/06/19 07:09 Glucose (Fingerstick) 168 mg/dL (70-99) 128 mg/dL (70-99) 51 mg/dL (70-99) Sodium Level 142 mmol/L (136-145) Potassium Level 3.2 mmol/L (3.5-5.1) Chloride Level 104 mmol/L (98-107) Carbon Dioxide Level 28 mmol/L (21-32) Anion Gap 10 (6-14) Blood Urea Nitrogen 22 mg/dL (8-26) Creatinine 1.8 mg/dL (0.7-1.3) Estimated GFR (Cockcroft-Gault) 37.3 BUN/Creatinine Ratio 12 (6-20) Glucose Level 61 mg/dL (70-99) Calcium Level 8.5 mg/dL (8.5-10.1) Total Bilirubin 0.7 mg/dL (0.2-1.0) Aspartate Amino Transf (AST/SGOT) 18 U/L (15-37) Alanine Aminotransferase (ALT/SGPT) 15 U/L (16-63) Alkaline Phosphatase 68 U/L (46-116) Total Protein 6.3 g/dL (6.4-8.2) Albumin 1.8 g/dL (3.4-5.0) Albumin/Globulin Ratio 0.4 (1.0-1.7) Test 01/06/19 08:04 01/06/19 08:50 01/06/19 12:06 Glucose (Fingerstick) 55 mg/dL (70-99) 120 mg/dL (70-99) 185 mg/dL (70-99) Review of Systems Review of Systems Pt denies CP, SOB, N/V Assessment and Plan Assessmemt and Plan Assessment dry gangrene, ischemic toes, 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 Labs Laboratory Tests Test 01/04/19 18:13 01/04/19 20:36 01/05/19 08:17 01/05/19 12:07 Glucose (Fingerstick) 72 mg/dL (70-99) 124 mg/dL (70-99) 108 mg/dL (70-99) 198 mg/dL (70-99) Test 01/05/19 17:24 01/05/19 21:19 01/06/19 04:25 01/06/19 07:09 Glucose (Fingerstick) 168 mg/dL (70-99) 128 mg/dL (70-99) 51 mg/dL (70-99) Sodium Level 142 mmol/L (136-145) Potassium Level 3.2 mmol/L (3.5-5.1) Chloride Level 104 mmol/L (98-107) Carbon Dioxide Level 28 mmol/L (21-32) Anion Gap 10 (6-14) Blood Urea Nitrogen 22 mg/dL (8-26) Creatinine 1.8 mg/dL (0.7-1.3) Estimated GFR (Cockcroft-Gault) 37.3 BUN/Creatinine Ratio 12 (6-20) Glucose Level 61 mg/dL (70-99) Calcium Level 8.5 mg/dL (8.5-10.1) Total Bilirubin 0.7 mg/dL (0.2-1.0) Aspartate Amino Transf (AST/SGOT) 18 U/L (15-37) Alanine Aminotransferase (ALT/SGPT) 15 U/L (16-63) Alkaline Phosphatase 68 U/L (46-116) Total Protein 6.3 g/dL (6.4-8.2) Albumin 1.8 g/dL (3.4-5.0) Albumin/Globulin Ratio 0.4 (1.0-1.7) Test 01/06/19 08:04 01/06/19 08:50 01/06/19 12:06 Glucose (Fingerstick) 55 mg/dL (70-99) 120 mg/dL (70-99) 185 mg/dL (70-99) Laboratory Tests Test 01/05/19 17:24 01/05/19 21:19 01/06/19 04:25 01/06/19 07:09 Glucose (Fingerstick) 168 mg/dL (70-99) 128 mg/dL (70-99) 51 mg/dL (70-99) Sodium Level 142 mmol/L (136-145) Potassium Level 3.2 mmol/L (3.5-5.1) Chloride Level 104 mmol/L (98-107) Carbon Dioxide Level 28 mmol/L (21-32) Anion Gap 10 (6-14) Blood Urea Nitrogen 22 mg/dL (8-26) Creatinine 1.8 mg/dL (0.7-1.3) Estimated GFR (Cockcroft-Gault) 37.3 BUN/Creatinine Ratio 12 (6-20) Glucose Level 61 mg/dL (70-99) Calcium Level 8.5 mg/dL (8.5-10.1) Total Bilirubin 0.7 mg/dL (0.2-1.0) Aspartate Amino Transf (AST/SGOT) 18 U/L (15-37) Alanine Aminotransferase (ALT/SGPT) 15 U/L (16-63) Alkaline Phosphatase 68 U/L (46-116) Total Protein 6.3 g/dL (6.4-8.2) Albumin 1.8 g/dL (3.4-5.0) Albumin/Globulin Ratio 0.4 (1.0-1.7) Test 01/06/19 08:04 01/06/19 08:50 01/06/19 12:06 Glucose (Fingerstick) 55 mg/dL (70-99) 120 mg/dL (70-99) 185 mg/dL (70-99) Medications Current Medications Insulin Human Lispro (HumaLOG) 0-9 UNITS TIDWMEALS SQ Last administered on 12/27 18:33; Start 12/27/18 at 17:00; Stop 12/28/18 at 07:59; Status DC Dextrose (Dextrose 50%-Water Syringe) 12.5 gm PRN Q15MIN PRN IV SEE COMMENTS Last administered on 01/06/19 08:06; Start 12/27/18 at 16:45 Atorvastatin Calcium (Lipitor) 40 mg HS PO Last administered on 01/05/19 21:12 ; Start 12/27/18 at 21:00 Metoprolol Succinate (Toprol Xl) 25 mg DAILY PO Last administered on 01/06/19at 10:04; Start 12/28/18 at 09:00 Niacin (Slo-Niacin) 500 mg HS PO Last administered on 01/05/19 21:12; Start at 21:00 Vitamin D (Vitamin D3) 5,000 unit DAILY PO Last administered on 01/06/19 10:03 ; Start 12/28/18 at 09:00 Non-Formulary Medication (Dulaglutide (Trulicity)) 1.5 mg WEEKLY SQ ; Start 01/03 at 09:00; Status UNV Glimepiride (Amaryl) 4 mg BIDAC PO Last administered on 01/03/19 18:02; Start 12/27/18 at 18:30; Stop 01/04/19 at 07:48; Status DC Hydrochlorothiazide (Hydrodiuril) 25 mg DAILY PO Last administered on 01/03/19 09:30; Start 12/28/18 at 09:00; Stop 01/04/19 at 07:48; Status DC Insulin Glargine (Lantus) 32 units QHS SQ Last administered on 01/03/19at 22:15; Start 12/27/18 at 21:00; Stop 01/04/19 at 16:05; Status DC Levothyroxine Sodium (Synthroid) 50 mcg DAILY06 PO Last administered on at 05:27; Start 12/28/18 at 06:00 Insulin Human Lispro (HumaLOG) 0-9 UNITS TIDACHC SQ Last administered on at 17:30; Start 12/28/18 at 11:30 Labetalol HCl (Normodyne Iv Push) 10 mg PRN Q2HR PRN IVP HYPERTENSION, SEE COMMENTS; Start 12/28/18 at 08:00 Acetaminophen (Tylenol) 500 mg PRN Q6HRS PRN PO MILD PAIN / TEMP; Start at 08:00 Acetaminophen/ Codeine Phosphate (Tylenol #3) 1 tab PRN Q6HRS PRN PO MODERATE TO SEVERE PAIN Last administered on 01/02/19at 02:15; Start 12/28/18 at 08:00 Ondansetron HCl (Zofran) 4 mg PRN Q6HRS PRN IV NAUSEA/VOMITING; Start 12/28/18 at 08:00 Ondansetron HCl (Zofran Odt) 4 mg PRN Q6HRS PRN PO NAUSEA/VOMITING; Start 12/28 at 08:00 Sodium Chloride 1,000 ml @ 75 mls/hr 1X ONCE IV Last administered on at 15:23; Start 12/28/18 at 14:30; Stop 12/29/18 at 03:49; Status DC Sodium Chloride 500 ml @ 250 mls/hr 1X ONCE IV ; Start 12/29/18 at 11:00; Stop 12/29/18 at 12:51; Status DC Influenza Virus Vaccine (Afluria Trivalent [id number] Syringe) 0.5 ml ONCE ONCE VAX IM ; Start 12/29/18 at 10:00; Stop 12/29/18 at 10:01; Status DC Piperacillin Sod/ Tazobactam Sod (Zosyn Per Pharmacy) 1 each PRN DAILY PRN MC SEE COMMENTS; Start 12/29/18 at 11:45 Aspirin (Ecotrin) 81 mg DAILYWBKFT PO Last administered on 01/06/19at 10:03; Start 12/29/18 at 12:00 Piperacillin Sod/ Tazobactam Sod 3.375 gm/Sodium Chloride 50 ml @ 100 mls/hr Q6HRS IV Last administered on 01/06/19at 05:27; Start 12/29/18 at 12:00 Sodium Chloride 1,000 ml @ 75 mls/hr 1X ONCE IV Last administered on at 01:12; Start 12/30/18 at 00:00; Stop 12/30/18 at 13:19; Status DC Sodium Chloride 500 ml @ 250 mls/hr 1X ONCE IV Last administered on at 08:13; Start 12/30/18 at 09:30; Stop 12/30/18 at 11:29; Status DC Lactobacillus Rhamnosus (Culturelle) 1 cap BID PO Last administered on at 10:04; Start 12/29/18 at 21:00 Multivitamins (Thera M Plus) 1 tab DAILY PO Last administered on 01/06/19at 10:04 ; Start 12/30/18 at 09:00 Linezolid/Dextrose 300 ml @ 300 mls/hr Q12HR IV Last administered on 01/06/19at 10:04; Start 12/29/18 at 15:00 Midazolam HCl (Versed) 5 mg STK-MED ONCE .ROUTE ; Start 12/30/18 at 08:07; Stop 12/30/18 at 08:08; Status DC Fentanyl Citrate (Fentanyl 2ml Vial) 100 mcg STK-MED ONCE .ROUTE ; Start at 08:07; Stop 12/30/18 at 08:08; Status DC Heparin Sodium (Porcine) (Heparin Sodium) 10,000 unit STK-MED ONCE .ROUTE ; Start 12/30/18 at 08:07; Stop 12/30/18 at 08:08; Status DC Iodixanol (Visipaque 320) 100 ml STK-MED ONCE .ROUTE ; Start 12/30/18 at 08:07; Stop 12/30/18 at 08:08; Status DC Lidocaine HCl (Lidocaine 1% 20ml Vial) 20 ml STK-MED ONCE .ROUTE ; Start at 08:07; Stop 12/30/18 at 08:08; Status DC Heparin Sodium/ Sodium Chloride 1,500 ml @ As Directed STK-MED ONCE .ROUTE ; Start 12/30/18 at 08:07; Stop 12/30/18 at 08:08; Status DC Heparin Sodium/ Sodium Chloride (HEPARIN for ARTERIAL LINE FLUSH) 1,000 unit 1X ONCE IART Last administered on 12/30/18at 10:53; Start 12/30/18 at 09:15; Stop 12/30/18 at 09:16; Status DC Midazolam HCl (Versed) 5 mg 1X ONCE IV Last administered on 12/30/18 11:01; Start 12/30/18 at 09:15; Stop 12/30/18 at 09:16; Status DC Fentanyl Citrate (Fentanyl 2ml Vial) 100 mcg 1X ONCE IV Last administered on at 10:55; Start 12/30/18 at 09:15; Stop 12/30/18 at 09:16; Status DC Iodixanol (Visipaque 320) 100 ml 1X ONCE IART Last administered on 12/30/18 11:01; Start 12/30/18 at 09:15; Stop 12/30/18 at 09:16; Status DC Lidocaine HCl (Lidocaine 1% 20ml Vial) 20 ml 1X ONCE INJ Last administered on 12/30/18 11:01; Start 12/30/18 at 09:15; Stop 12/30/18 at 09:16; Status DC Iodixanol (Visipaque 320) 100 ml STK-MED ONCE .ROUTE ; Start 12/30/18 at 09:42; Stop 12/30/18 at 09:43; Status DC Heparin Sodium (Porcine) (Heparin Sodium) 6,000 unit 1X ONCE IV Last administered on 12/30/18at 11:00; Start 12/30/18 at 09:16; Stop 12/30/18 at 10:06 ; Status DC Lidocaine HCl (Lidocaine 1% 20ml Vial) 20 ml STK-MED ONCE .ROUTE ; Start at 10:06; Stop 12/30/18 at 10:07; Status DC Nitroglycerin (Nitroglycerin) 200 mcg 1X ONCE IART Last administered on at 11:01; Start 12/30/18 at 10:15; Stop 12/30/18 at 10:16; Status DC Protamine Sulfate (Protamine) 50 mg STK-MED ONCE IV ; Start 12/30/18 at 10:39; Stop 12/30/18 at 10:40; Status DC Protamine Sulfate (Protamine) 30 mg 1X ONCE IV Last administered on 12/30/18at 10:48; Start 12/30/18 at 10:48; Stop 12/30/18 at 10:58; Status DC Morphine Sulfate (Morphine Sulfate) 1 mg PRN Q10MIN PRN IV SEVERE PAIN; Start 12/31/18 at 07:00; Stop 01/01/19 at 06:59; Status DC Ringer's Solution 1,000 ml @ 30 mls/hr Q24H IV ; Start 12/31/18 at 07:00; Stop 12/31/18 at 18:59; Status DC Lidocaine HCl (Xylocaine-Mpf 1% 2ml Vial) 2 ml PRN 1X PRN ID PRIOR TO IV START ; Start 12/31/18 at 07:00; Stop 01/01/19 at 06:59; Status DC Hydromorphone HCl (Dilaudid) 0.5 mg PRN Q10MIN PRN IV SEV PAIN, Second choice; Start 12/31/18 at 07:00; Stop 01/01/19 at 06:59; Status DC Prochlorperazine Edisylate (Compazine) 5 mg PACU PRN PRN IV NAUSEA, MRX1 Last administered on 12/31/18at 09:31; Start 12/31/18 at 07:00; Stop 01/01/19 at 06:59 ; Status DC Lidocaine HCl (Xylocaine 1% Pf 30ml Vial) 30 ml STK-MED ONCE .ROUTE Last administered on 12/31/18at 07:18; Start 12/31/18 at 07:02; Stop 12/31/18 at 07:03 ; Status DC Lidocaine HCl (Xylocaine 1% Pf 30ml Vial) 30 ml STK-MED ONCE .ROUTE ; Start at 07:02; Stop 12/31/18 at 07:03; Status DC Bupivacaine HCl (Sensorcaine Mpf 0.5%) 30 ml STK-MED ONCE .ROUTE Last administered on 12/31/18at 07:18; Start 12/31/18 at 07:02; Stop 12/31/18 at 07:03 ; Status DC Ondansetron HCl (Zofran) 4 mg STK-MED ONCE .ROUTE ; Start 12/31/18 at 07:05; Stop 12/31/18 at 07:06; Status DC Lidocaine HCl (Lidocaine Pf 2% Vial) 5 ml STK-MED ONCE .ROUTE ; Start 12/31/18 at 07:05; Stop 12/31/18 at 07:06; Status DC Propofol 20 ml @ As Directed STK-MED ONCE IV ; Start 12/31/18 at 07:05; Stop at 07:06; Status DC Famotidine (Pepcid Vial) 20 mg STK-MED ONCE .ROUTE ; Start 12/31/18 at 07:05; Stop 12/31/18 at 07:06; Status DC Dexamethasone Sodium Phosphate (Decadron) 20 mg STK-MED ONCE .ROUTE ; Start at 07:05; Stop 12/31/18 at 07:06; Status Cancel Fentanyl Citrate (Fentanyl 2ml Vial) 100 mcg STK-MED ONCE .ROUTE ; Start at 07:06; Stop 12/31/18 at 07:07; Status DC Desflurane (Suprane) 60 ml STK-MED ONCE IH ; Start 12/31/18 at 08:45; Stop 12/31 at 08:46; Status DC Prochlorperazine Edisylate (Compazine) 10 mg STK-MED ONCE .ROUTE ; Start at 08:57; Stop 12/31/18 at 08:58; Status DC Ondansetron HCl (Zofran) 4 mg STK-MED ONCE .ROUTE ; Start 12/31/18 at 09:39; Stop 12/31/18 at 09:40; Status DC Sodium Chloride 1,000 ml @ 100 mls/hr Q10H IV ; Start 01/03/19 at 12:00; Stop at 12:00; Status DC Lorazepam (Ativan) 0.5 mg PRN Q6HRS PRN PO ANXIETY / AGITATION Last administered on 01/03/19 22:12; Start 01/01/19 at 23:00 Clopidogrel Bisulfate (Plavix) 75 mg DAILYWBKFT PO Last administered on at 10:03; Start 01/02/19 at 14:00 Sodium Chloride 1,000 ml @ 75 mls/hr [id number] IV Last administered on 01/04/19at 18:16; Start 01/03/19 at 12:00; Stop 01/05/19 at 18:17; Status DC Potassium Chloride (Klor-Con) 20 meq 1X ONCE PO ; Start 01/04/19 at 08:30; Stop 01/04/19 at 08:31; Status DC Lidocaine HCl (Lidocaine 1% 20ml Vial) 20 ml STK-MED ONCE .ROUTE ; Start at 14:40; Stop 01/04/19 at 14:41; Status DC Heparin Sodium/ Sodium Chloride 500 ml @ As Directed STK-MED ONCE .ROUTE ; Start 01/04/19 at 14:40; Stop 01/04/19 at 14:41; Status DC Midazolam HCl (Versed) 5 mg STK-MED ONCE .ROUTE ; Start 01/04/19 at 14:44; Stop 01/04/19 at 14:45; Status DC Fentanyl Citrate (Fentanyl 2ml Vial) 100 mcg STK-MED ONCE .ROUTE ; Start at 14:45; Stop 01/04/19 at 14:46; Status DC Heparin Sodium (Porcine) (Heparin Sodium) 10,000 unit STK-MED ONCE .ROUTE ; Start 01/04/19 at 14:45; Stop 01/04/19 at 14:46; Status DC Heparin Sodium/ Sodium Chloride (HEPARIN for ARTERIAL LINE FLUSH) 1,000 unit 1X ONCE IART Last administered on 01/04/19at 15:30; Start 01/04/19 at 15:30; Stop 01/04/19 at 15:38; Status DC Midazolam HCl (Versed) 5 mg 1X ONCE IV Last administered on 01/04/19at 15:30; Start 01/04/19 at 15:30; Stop 01/04/19 at 15:38; Status DC Fentanyl Citrate (Fentanyl 2ml Vial) 100 mcg 1X ONCE IV Last administered on at 15:30; Start 01/04/19 at 15:30; Stop 01/04/19 at 15:38; Status DC Iodixanol (Visipaque 320) 100 ml 1X ONCE IART ; Start 01/04/19 at 15:30; Stop at 15:56; Status DC Heparin Sodium (Porcine) (Heparin Sodium) 5,000 unit 1X ONCE IV Last administered on 01/04/19at 15:30; Start 01/04/19 at 15:30; Stop 01/04/19 at 15:39; Status DC Lidocaine HCl (Lidocaine 1% 20ml Vial) 20 ml 1X ONCE INJ Last administered on 01/04/19at 15:30; Start 01/04/19 at 15:30; Stop 01/04/19 at 15:39; Status DC Insulin Glargine (Lantus) 18 units QHS SQ Last administered on 01/05/19at 21:23; Start 01/04/19 at 21:00 Iodixanol (Visipaque 320) 100 ml 1X ONCE IART Last administered on 01/04/19at 16 :30; Start 01/04/19 at 16:30; Stop 01/04/19 at 16:31; Status DC Info (CONTRAST GIVEN -- Rx MONITORING) 1 each PRN DAILY PRN MC SEE COMMENTS; Start 01/04/19 at 16:30; Stop 01/06/19 at 16:29 Albuterol/ Ipratropium (Duoneb) 3 ml RTQID NEB ; Start 01/05/19 at 08:00; Stop at 08:00; Status DC Amlodipine Besylate (Norvasc) 5 mg DAILY PO Last administered on 01/06/19at 10:04 ; Start 01/05/19 at 10:30 Sodium Chloride 1,000 ml @ 75 mls/hr [id number] IV ; Start 01/06/19 at 18:00 Potassium Chloride (Klor-Con) 40 meq 1X ONCE PO ; Start 01/06/19 at 11:30; Stop 01/06/19 at 11:37; Status DC Active Scripts Active Reported Cipro (Ciprofloxacin Hcl) 500 Mg Tablet 1 Tab PO BID Niaspan (Niacin) 500 Mg Tab.er.24h 500 Mg PO HS Hydrochlorothiazide Tablet (Hydrochlorothiazide) 12.5 Mg Tablet 25 Mg PO DAILY Metoprolol Succinate ( Xl ) (Metoprolol Succinate) 25 Mg Tab.er.24h 25 Mg PO DAILY Lipitor (Atorvastatin Calcium) 40 Mg Tablet 40 Mg PO HS Trulicity (Dulaglutide) 1.5 Mg/0.5 Ml Pen.injctr 1.5 Mg SQ WEEKLY [place] Solostar (Insulin Glargine,Hum.rec.anlog) 300 Unit/1 Ml Insuln.pen 40 Unit SQ HS Aspirin 81 Mg Tab.chew 81 Mg PO BID Glimepiride 4 Mg Tablet 4 Mg PO BIDAC Synthroid (Levothyroxine Sodium) 50 Mcg Tablet 50 Mcg PO DAILYAC Vitamin D3 (Cholecalciferol (Vitamin D3)) 5,000 Unit Tablet 5,000 Unit PO DAILY Vitals/I & O Vital Sign - Last 24 Hours 01/05/19 01/05/19 01/05/19 01/05/19 15:00 19:30 20:00 23:05 Temp 98.0 98.0 97.7 98.0 98.0 97.7 Pulse 88 82 89 Resp 18 20 20 B/P (MAP) 144/67 (92) 145/66 (92) 152/66 (94) Pulse Ox 96 96 97 O2 Delivery Room Air Room Air Room Air Room Air 01/06/19 01/06/19 01/06/19 01/06/19 03:50 07:26 10:04 10:04 Temp 97.6 98.7 97.6 98.7 Pulse 71 82 82 82 Resp 20 20 B/P (MAP) 117/56 (76) 157/69 (98) 157/69 157/69 Pulse Ox 98 97 O2 Delivery Room Air Room Air 01/06/19 10:52 Temp 98.0 98.0 Pulse 72 Resp 20 B/P (MAP) 128/44 (72) Pulse Ox 99 O2 Delivery Room Air Intake and Output 01/05/19 01/05/19 01/06/19 15:00 23:00 07:00 Intake Total 350 ml 350 ml 200 ml Output Total 100 ml 100 ml Balance 250 ml 350 ml 100 ml PATIENCE ACUÑA III DO Jan 06, 2019 12:34
[2019-01-06 14:45] VITALS: BP 132/79
[2019-01-06] MEDS: IV NORMAL SALINE 1000ML BAG 1,000 ML IV SCH (18:01)
[2019-01-06 19:00] VITALS: BP_SYST 156; BP_SYST 161; BP_DIAS 67; BP_DIAS 93
[2019-01-06] MEDS: TAMSULOSIN 0.4 MG CAP.ER.24H. PO SCH (19:41)
[2019-01-06] MEDS: NIACIN ER 500 MG TABLET.ER PO SCH (19:41)
[2019-01-06] MEDS: LORazepam 0.5 MG TABLET PO PRN (19:41)
[2019-01-06] MEDS: ATORVASTATIN CALCIUM 40 MG TABLET. PO SCH (19:41)
[2019-01-06] MEDS: INSULIN GLARGINE 300 UNITS/3 ML INSULN.PEN. SQ SCH (21:21)
[2019-01-06 22:27] VITALS: BP 137/64
[2019-01-07] VITALS (20 sets, daily range): BP systolic 115–174; BP diastolic 56–83
[2019-01-07 05:05] LABS: BASO # 0.1 x10^3/uL (0.0-0.2); BASO % 1 % (0-3); EOS # 0.5 x10^3/uL (0.0-0.7); EOS % 5 % (0-3); HEMATOCRIT 29.1 % (39.0-53.0); HEMOGLOBIN 9.6 g/dL (13.0-17.5); LYMPH # 1.1 x10^3/uL (1.0-4.8); LYMPH % 11 % (24-48); MEAN CORPUSCULAR HEMOGLOBIN 30 pg (25-35); MEAN CORPUSCULAR HGB CONC 33 g/dL (31-37); MEAN CORPUSCULAR VOLUME 90 fL (79-100); MONO # 0.6 x10^3/uL (0.0-1.1); MONO % 6 % (0-9); NEUT # 7.5 x10^3uL (1.8-7.7); NEUT % 77 % (31-73); PLATELET COUNT 199 x10^3/uL (140-400); RED BLOOD COUNT 3.25 x10^6/uL (4.30-5.70); RED CELL DISTRIBUTION WIDTH 14.1 % (11.5-14.5); WHITE BLOOD COUNT 9.8 x10^3/uL (4.0-11.0)
[2019-01-07] MEDS: LEVOTHYROXINE 50 MCG TABLET PO SCH ×2 (05:25→05:26)
[2019-01-07 05:37] LABS: ALBUMIN/GLOBULIN RATIO 0.4 (1.0-1.7); CALCIUM 8.9 mg/dL (8.5-10.1); CREATININE 1.8 mg/dL (0.7-1.3); GFR 37.3; POTASSIUM 3.5 mmol/L (3.5-5.1); TOTAL BILIRUBIN 0.9 mg/dL (0.2-1.0); TOTAL PROTEIN 6.9 g/dL (6.4-8.2)
[2019-01-07] MEDS: IV NORMAL SALINE 1000ML BAG 1,000 ML IV SCH ×4 (07:20→20:21)
[2019-01-07] MEDS: INSULIN LISPRO 300 UNITS/3 ML INSULN.PEN. SQ SCH ×4 (07:30→21:00)
[2019-01-07] MEDS ORDERED: LIDOCAINE 1% Multi-Dose 20 ML VIAL. ONE (07:40)
[2019-01-07] MEDS ORDERED: IODIXANOL 320 MG/ML 100 ML VIAL. ONE (07:40)
[2019-01-07] MEDS ORDERED: HEPARIN for ARTERIAL LINE 1,500 ML ONE (07:40)
[2019-01-07] MEDS: ASPIRIN ENTERIC COATED 81 MG TABLET.DR. PO SCH (08:00)
[2019-01-07] MEDS: CLOPIDOGREL BISULFATE 75 MG TABLET PO SCH (08:00)
--- NOTE | 2019-01-07 08:31 | PDOC ---
Infectious Disease Note Subjective: Subjective pt says feels ok no f/c/n/v awaiting surgery lt leg today ROS: ROS Negative except for above. Vital Signs: Vital Signs Vital Signs Date Time Temp Pulse Resp B/P (MAP) Pulse Ox O2 Delivery O2 Flow Rate FiO2 01/07/19 07:00 97.4 120 20 115/57 (76) 97 Room Air 97.4 01/06/19 20:00 2.0 Physical Exam: PHYSICAL EXAM GENERAL: Sitting in the chair, alert, NAD HEENT: Oral cavity clear NECK: Supple LUNGS: Clear. HEART: S1, S2 ABDOMEN: Obese, soft, NT, BS present EXTREMITIES: 2+ edema BLE. Right foot bandaged NEUROLOGIC: Alert, responds appropriately PIV ok Medications: Inpatient Meds: Current Medications Medications (Trade) Dose Ordered Sig/Zeeshan Start Time Stop Time Status Last Admin Dose Admin Acetaminophen (Tylenol) 500 mg PRN Q6HRS PRN 12/28/18 08:00 Acetaminophen/ Codeine Phosphate (Tylenol #3) 1 tab PRN Q6HRS PRN 12/28/18 08:00 01/02/19 02:15 1 TAB Albuterol/ Ipratropium (Duoneb) 3 ml RTQID 01/05/19 08:00 01/05/19 08:00 DC Amlodipine Besylate (Norvasc) 5 mg DAILY 01/05/19 10:30 01/06/19 10:04 5 MG Aspirin (Ecotrin) 81 mg [id number] 12/29/18 12:00 01/06/19 10:03 81 MG Atorvastatin Calcium (Lipitor) 40 mg HS 12/27/18 21:00 01/06/19 19:41 40 MG Bupivacaine HCl (Sensorcaine Mpf 0.5%) 30 ml STK-MED ONCE 12/31/18 07:02 12/31/18 07:03 DC 12/31/18 07:18 4 ML Clopidogrel Bisulfate (Plavix) 75 mg DAILYWBKFT 01/02/19 14:00 01/06/19 10:03 75 MG Desflurane (Suprane) 60 ml STK-MED ONCE 12/31/18 08:45 12/31/18 08:46 DC Dexamethasone Sodium Phosphate (Decadron) 20 mg STK-MED ONCE 12/31/18 07:05 12/31/18 07:06 Cancel Dextrose (Dextrose 50%-Water Syringe) 12.5 gm PRN Q15MIN PRN 12/27/18 16:45 01/06/19 08:06 12.5 GM Famotidine (Pepcid Vial) 20 mg STK-MED ONCE 12/31/18 07:05 12/31/18 07:06 DC Fentanyl Citrate (Fentanyl 2ml Vial) 100 mcg 1X ONCE 01/04/19 15:30 01/04/19 15:38 DC 01/04/19 15:30 100 MCG Glimepiride (Amaryl) 4 mg BIDAC 12/27/18 18:30 01/04/19 07:48 DC 01/03/19 18:02 4 MG Heparin Sodium (Porcine) (Heparin Sodium) 5,000 unit 1X ONCE 01/04/19 15:30 01/04/19 15:39 DC 01/04/19 15:30 7,000 UNIT Heparin Sodium/ Sodium Chloride 1,500 ml @ As Directed STK-MED ONCE 01/07/19 07:40 01/07/19 07:41 DC Heparin Sodium/ Sodium Chloride (HEPARIN for ARTERIAL LINE FLUSH) 1,000 unit 1X ONCE 01/04/19 15:30 01/04/19 15:38 DC 01/04/19 15:30 1,000 UNIT Hydrochlorothiazide (Hydrodiuril) 25 mg DAILY 12/28/18 09:00 01/04/19 07:48 DC 01/03/19 09:30 25 MG Hydromorphone HCl (Dilaudid) 0.5 mg PRN Q10MIN PRN 12/31/18 07:00 01/01/19 06:59 DC Influenza Virus Vaccine (Afluria Trivalent [id number] Syringe) 0.5 ml ONCE ONCE 12/29/18 10:00 12/29/18 10:01 DC 01/06/19 17:59 0.5 ML Info (CONTRAST GIVEN -- Rx MONITORING) 1 each PRN DAILY PRN 01/04/19 16:30 01/06/19 16:29 DC Insulin Glargine (Lantus) 18 units QHS 01/04/19 21:00 01/06/19 21:21 18 UNITS Insulin Human Lispro (HumaLOG) 0-9 UNITS TIDACHC 12/28/18 11:30 01/06/19 13:01 4 UNITS Iodixanol (Visipaque 320) 100 ml STK-MED ONCE 01/07/19 07:40 01/07/19 07:41 DC Labetalol HCl (Normodyne Iv Push) 10 mg PRN Q2HR PRN 12/28/18 08:00 Lactobacillus Rhamnosus (Culturelle) 1 cap BID 12/29/18 21:00 01/06/19 19:41 1 CAP Levothyroxine Sodium (Synthroid) 50 mcg DAILY06 12/28/18 06:00 01/06/19 05:27 50 MCG Lidocaine HCl (Lidocaine 1% 20ml Vial) 20 ml STK-MED ONCE 01/07/19 07:40 01/07/19 07:41 DC Lidocaine HCl (Lidocaine Pf 2% Vial) 5 ml STK-MED ONCE 12/31/18 07:05 12/31/18 07:06 DC Lidocaine HCl (Xylocaine 1% Pf 30ml Vial) 30 ml STK-MED ONCE 12/31/18 07:02 12/31/18 07:03 DC Lidocaine HCl (Xylocaine-Mpf 1% 2ml Vial) 2 ml PRN 1X PRN 12/31/18 07:00 01/01/19 06:59 DC Linezolid/Dextrose 300 ml @ 300 mls/hr Q12HR 12/29/18 15:00 01/06/19 19:42 300 MLS/HR Lorazepam (Ativan) 0.5 mg PRN Q6HRS PRN 01/01/19 23:00 01/06/19 19:41 0.5 MG Metoprolol Succinate (Toprol Xl) 25 mg DAILY 12/28/18 09:00 01/06/19 10:04 25 MG Midazolam HCl (Versed) 5 mg 1X ONCE 01/04/19 15:30 01/04/19 15:38 DC 01/04/19 15:30 2 MG Morphine Sulfate (Morphine Sulfate) 1 mg PRN Q10MIN PRN 12/31/18 07:00 01/01/19 06:59 DC Multivitamins (Thera M Plus) 1 tab DAILY 12/30/18 09:00 01/06/19 10:04 1 TAB Niacin (Slo-Niacin) 500 mg HS 12/27/18 21:00 01/06/19 19:41 500 MG Nitroglycerin (Nitroglycerin) 200 mcg 1X ONCE 12/30/18 10:15 12/30/18 10:16 DC 12/30/18 11:01 400 MCG Non-Formulary Medication (Dulaglutide (Trulicity)) 1.5 mg WEEKLY 01/03/19 09:00 UNV Ondansetron HCl (Zofran Odt) 4 mg PRN Q6HRS PRN 12/28/18 08:00 Ondansetron HCl (Zofran) 4 mg STK-MED ONCE 12/31/18 09:39 12/31/18 09:40 DC Piperacillin Sod/ Tazobactam Sod (Zosyn Per Pharmacy) 1 each PRN DAILY PRN 12/29/18 11:45 Piperacillin Sod/ Tazobactam Sod 3.375 gm/Sodium Chloride 50 ml @ 100 mls/hr Q6HRS 12/29/18 12:00 01/07/19 00:00 100 MLS/HR Potassium Chloride (Klor-Con) 40 meq 1X ONCE 01/06/19 11:30 01/06/19 11:37 DC 01/06/19 12:50 40 MEQ Prochlorperazine Edisylate (Compazine) 10 mg STK-MED ONCE 12/31/18 08:57 12/31/18 08:58 DC Propofol 20 ml @ As Directed STK-MED ONCE 12/31/18 07:05 12/31/18 07:06 DC Protamine Sulfate (Protamine) 30 mg 1X ONCE 12/30/18 10:48 12/30/18 10:58 DC 12/30/18 10:48 30 MG Ringer's Solution 1,000 ml @ 30 mls/hr Q24H 12/31/18 07:00 12/31/18 18:59 DC Sodium Chloride 1,000 ml @ 75 mls/hr [id number] 01/06/19 18:00 01/06/19 18:01 75 MLS/HR Tamsulosin HCl (Flomax) 0.4 mg QHS 01/06/19 21:00 01/06/19 19:41 0.4 MG Vitamin D (Vitamin D3) 5,000 unit DAILY 12/28/18 09:00 01/06/19 10:03 5,000 UNIT Labs: Lab Laboratory Tests Test 01/06/19 08:50 01/06/19 12:06 01/06/19 17:12 01/06/19 20:59 Glucose (Fingerstick) 120 mg/dL (70-99) 185 mg/dL (70-99) 131 mg/dL (70-99) 170 mg/dL (70-99) Test 01/07/19 03:45 01/07/19 08:18 White Blood Count 9.8 x10^3/uL (4.0-11.0) Red Blood Count 3.25 x10^6/uL (4.30-5.70) Hemoglobin 9.6 g/dL (13.0-17.5) Hematocrit 29.1 % (39.0-53.0) Mean Corpuscular Volume 90 fL (79-100) Mean Corpuscular Hemoglobin 30 pg (25-35) Mean Corpuscular Hemoglobin Concent 33 g/dL (31-37) Red Cell Distribution Width 14.1 % (11.5-14.5) Platelet Count 199 x10^3/uL (140-400) Neutrophils (%) (Auto) 77 % (31-73) Lymphocytes (%) (Auto) 11 % (24-48) Monocytes (%) (Auto) 6 % (0-9) Eosinophils (%) (Auto) 5 % (0-3) Basophils (%) (Auto) 1 % (0-3) Neutrophils # (Auto) 7.5 x10^3uL (1.8-7.7) Lymphocytes # (Auto) 1.1 x10^3/uL (1.0-4.8) Monocytes # (Auto) 0.6 x10^3/uL (0.0-1.1) Eosinophils # (Auto) 0.5 x10^3/uL (0.0-0.7) Basophils # (Auto) 0.1 x10^3/uL (0.0-0.2) Sodium Level 142 mmol/L (136-145) Potassium Level 3.5 mmol/L (3.5-5.1) Chloride Level 104 mmol/L (98-107) Carbon Dioxide Level 27 mmol/L (21-32) Anion Gap 11 (6-14) Blood Urea Nitrogen 21 mg/dL (8-26) Creatinine 1.8 mg/dL (0.7-1.3) Estimated GFR (Cockcroft-Gault) 37.3 BUN/Creatinine Ratio 12 (6-20) Glucose Level 99 mg/dL (70-99) Calcium Level 8.9 mg/dL (8.5-10.1) Total Bilirubin 0.9 mg/dL (0.2-1.0) Aspartate Amino Transf (AST/SGOT) 20 U/L (15-37) Alanine Aminotransferase (ALT/SGPT) 17 U/L (16-63) Alkaline Phosphatase 74 U/L (46-116) Total Protein 6.9 g/dL (6.4-8.2) Albumin 2.0 g/dL (3.4-5.0) Albumin/Globulin Ratio 0.4 (1.0-1.7) Glucose (Fingerstick) 81 mg/dL (70-99) Objective: Assessment: Right foot cellulitis. Right foot all toes gangrene. s/p right leg angioplasty and TMA w/ primary closure on 12/31. Left big toe ulcer s/p debridement to level of bone and tendon on 12/31 PAD Jan 04 2019 S/P LEFT SFA angioplasty,S/P LEFT TIBIAL angioplasty Leukocytosis. Diabetes. Coronary artery disease. Renal insufficiency. Diarrhea C diff neg Plan: Plan of Care Zyvox, Zosyn Probiotics Wound care awaiting Lt leg arterial intervention Supportive care JESSA CALLAHAN MD Jan 07, 2019 08:31
[2019-01-07] MEDS: CHOLECALCIFEROL (VITAMIN D3) 5,000 UNIT CAPSULE PO SCH (09:00)
[2019-01-07] MEDS: METOPROLOL SUCC 24HR ER 25 MG TAB.ER.24H. PO SCH ×2 (09:00→18:49)
[2019-01-07] MEDS: LACTOBACILLUS RHAMNOSUS GG 1 CAPSULE. PO SCH ×2 (09:00→20:17)
[2019-01-07] MEDS: amLODIPine BESYLATE 5 MG TABLET PO SCH (09:00)
[2019-01-07] MEDS: MULTIVITAMIN with MINERAL TABLET. PO SCH (09:00)
[2019-01-07] MEDS ORDERED: fentaNYL PF VIAL 100 MCG/2 ML VIAL ONE ×2 (09:35→12:01)
[2019-01-07] MEDS ORDERED: MIDAZOLAM HCL/PF 2 MG/2 ML VIAL. ONE ×2 (09:35→12:00)
[2019-01-07] MEDS ORDERED: NITROGLYCERIN 200 MCG/2 ML SYRINGE FOR CATH/VASC LAB. ONE ×2 (09:58→12:26)
[2019-01-07] MEDS ORDERED: VERAPAMIL 5 MG/2 ML VIAL. ONE (09:58)
[2019-01-07] MEDS ORDERED: HEPARIN for IV BOLUS 10,000 UNIT/10 ML VIAL. ONE (09:58)
--- NOTE | 2019-01-07 10:16 | PDOC ---
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 PMH of HTN, CVA , DM2 Mr Watson was seen and examined this morning Pt was resting in chair at bedside, NAD, eating breakfast Discussed with RN Plan to have LLE angiogram TODAY Discussed with Pt discharge plans, likely D/C to SNF by early next week Vitals Vitals Vital Signs Date Time Temp Pulse Resp B/P (MAP) Pulse Ox O2 Delivery O2 Flow Rate FiO2 01/07/19 07:00 97.4 120 20 115/57 (76) 97 Room Air 97.4 01/06/19 20:00 2.0 Physical Exam General: Alert, Oriented X3, Cooperative, No acute distress Heart: Regular rate, Normal S1, Normal S2, No murmurs Lungs: Clear Abdomen: Soft, No tenderness Extremities: No clubbing, No cyanosis, Other (R foot with bandage CDI, L foot with bandage on dorsal aspect of MCP joint) Skin: Other (R groin surgical access site has a clean/dry/intact dressing ) Labs LABS Laboratory Tests Test 01/06/19 12:06 01/06/19 17:12 01/06/19 20:59 01/07/19 03:45 Glucose (Fingerstick) 185 mg/dL (70-99) 131 mg/dL (70-99) 170 mg/dL (70-99) White Blood Count 9.8 x10^3/uL (4.0-11.0) Red Blood Count 3.25 x10^6/uL (4.30-5.70) Hemoglobin 9.6 g/dL (13.0-17.5) Hematocrit 29.1 % (39.0-53.0) Mean Corpuscular Volume 90 fL (79-100) Mean Corpuscular Hemoglobin 30 pg (25-35) Mean Corpuscular Hemoglobin Concent 33 g/dL (31-37) Red Cell Distribution Width 14.1 % (11.5-14.5) Platelet Count 199 x10^3/uL (140-400) Neutrophils (%) (Auto) 77 % (31-73) Lymphocytes (%) (Auto) 11 % (24-48) Monocytes (%) (Auto) 6 % (0-9) Eosinophils (%) (Auto) 5 % (0-3) Basophils (%) (Auto) 1 % (0-3) Neutrophils # (Auto) 7.5 x10^3uL (1.8-7.7) Lymphocytes # (Auto) 1.1 x10^3/uL (1.0-4.8) Monocytes # (Auto) 0.6 x10^3/uL (0.0-1.1) Eosinophils # (Auto) 0.5 x10^3/uL (0.0-0.7) Basophils # (Auto) 0.1 x10^3/uL (0.0-0.2) Sodium Level 142 mmol/L (136-145) Potassium Level 3.5 mmol/L (3.5-5.1) Chloride Level 104 mmol/L (98-107) Carbon Dioxide Level 27 mmol/L (21-32) Anion Gap 11 (6-14) Blood Urea Nitrogen 21 mg/dL (8-26) Creatinine 1.8 mg/dL (0.7-1.3) Estimated GFR (Cockcroft-Gault) 37.3 BUN/Creatinine Ratio 12 (6-20) Glucose Level 99 mg/dL (70-99) Calcium Level 8.9 mg/dL (8.5-10.1) Total Bilirubin 0.9 mg/dL (0.2-1.0) Aspartate Amino Transf (AST/SGOT) 20 U/L (15-37) Alanine Aminotransferase (ALT/SGPT) 17 U/L (16-63) Alkaline Phosphatase 74 U/L (46-116) Total Protein 6.9 g/dL (6.4-8.2) Albumin 2.0 g/dL (3.4-5.0) Albumin/Globulin Ratio 0.4 (1.0-1.7) Test 01/07/19 08:18 Glucose (Fingerstick) 81 mg/dL (70-99) Review of Systems Review of Systems Pt denies CP, SOB, PEARSON, dizziness, weakness, n/v Assessment and Plan Assessmemt and Plan Assessment dry gangrene, ischemic toes, 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 with gangrene of all toes --> s/ p perc revascularization 01/02/19 --> 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 Labs Laboratory Tests Test 01/05/19 12:07 01/05/19 17:24 01/05/19 21:19 01/06/19 04:25 Glucose (Fingerstick) 198 mg/dL (70-99) 168 mg/dL (70-99) 128 mg/dL (70-99) Sodium Level 142 mmol/L (136-145) Potassium Level 3.2 mmol/L (3.5-5.1) Chloride Level 104 mmol/L (98-107) Carbon Dioxide Level 28 mmol/L (21-32) Anion Gap 10 (6-14) Blood Urea Nitrogen 22 mg/dL (8-26) Creatinine 1.8 mg/dL (0.7-1.3) Estimated GFR (Cockcroft-Gault) 37.3 BUN/Creatinine Ratio 12 (6-20) Glucose Level 61 mg/dL (70-99) Calcium Level 8.5 mg/dL (8.5-10.1) Total Bilirubin 0.7 mg/dL (0.2-1.0) Aspartate Amino Transf (AST/SGOT) 18 U/L (15-37) Alanine Aminotransferase (ALT/SGPT) 15 U/L (16-63) Alkaline Phosphatase 68 U/L (46-116) Total Protein 6.3 g/dL (6.4-8.2) Albumin 1.8 g/dL (3.4-5.0) Albumin/Globulin Ratio 0.4 (1.0-1.7) Test 01/06/19 07:09 01/06/19 08:04 01/06/19 08:50 01/06/19 12:06 Glucose (Fingerstick) 51 mg/dL (70-99) 55 mg/dL (70-99) 120 mg/dL (70-99) 185 mg/dL (70-99) Test 01/06/19 17:12 01/06/19 20:59 01/07/19 03:45 01/07/19 08:18 Glucose (Fingerstick) 131 mg/dL (70-99) 170 mg/dL (70-99) 81 mg/dL (70-99) White Blood Count 9.8 x10^3/uL (4.0-11.0) Red Blood Count 3.25 x10^6/uL (4.30-5.70) Hemoglobin 9.6 g/dL (13.0-17.5) Hematocrit 29.1 % (39.0-53.0) Mean Corpuscular Volume 90 fL (79-100) Mean Corpuscular Hemoglobin 30 pg (25-35) Mean Corpuscular Hemoglobin Concent 33 g/dL (31-37) Red Cell Distribution Width 14.1 % (11.5-14.5) Platelet Count 199 x10^3/uL (140-400) Neutrophils (%) (Auto) 77 % (31-73) Lymphocytes (%) (Auto) 11 % (24-48) Monocytes (%) (Auto) 6 % (0-9) Eosinophils (%) (Auto) 5 % (0-3) Basophils (%) (Auto) 1 % (0-3) Neutrophils # (Auto) 7.5 x10^3uL (1.8-7.7) Lymphocytes # (Auto) 1.1 x10^3/uL (1.0-4.8) Monocytes # (Auto) 0.6 x10^3/uL (0.0-1.1) Eosinophils # (Auto) 0.5 x10^3/uL (0.0-0.7) Basophils # (Auto) 0.1 x10^3/uL (0.0-0.2) Sodium Level 142 mmol/L (136-145) Potassium Level 3.5 mmol/L (3.5-5.1) Chloride Level 104 mmol/L (98-107) Carbon Dioxide Level 27 mmol/L (21-32) Anion Gap 11 (6-14) Blood Urea Nitrogen 21 mg/dL (8-26) Creatinine 1.8 mg/dL (0.7-1.3) Estimated GFR (Cockcroft-Gault) 37.3 BUN/Creatinine Ratio 12 (6-20) Glucose Level 99 mg/dL (70-99) Calcium Level 8.9 mg/dL (8.5-10.1) Total Bilirubin 0.9 mg/dL (0.2-1.0) Aspartate Amino Transf (AST/SGOT) 20 U/L (15-37) Alanine Aminotransferase (ALT/SGPT) 17 U/L (16-63) Alkaline Phosphatase 74 U/L (46-116) Total Protein 6.9 g/dL (6.4-8.2) Albumin 2.0 g/dL (3.4-5.0) Albumin/Globulin Ratio 0.4 (1.0-1.7) Laboratory Tests Test 01/06/19 12:06 01/06/19 17:12 01/06/19 20:59 01/07/19 03:45 Glucose (Fingerstick) 185 mg/dL (70-99) 131 mg/dL (70-99) 170 mg/dL (70-99) White Blood Count 9.8 x10^3/uL (4.0-11.0) Red Blood Count 3.25 x10^6/uL (4.30-5.70) Hemoglobin 9.6 g/dL (13.0-17.5) Hematocrit 29.1 % (39.0-53.0) Mean Corpuscular Volume 90 fL (79-100) Mean Corpuscular Hemoglobin 30 pg (25-35) Mean Corpuscular Hemoglobin Concent 33 g/dL (31-37) Red Cell Distribution Width 14.1 % (11.5-14.5) Platelet Count 199 x10^3/uL (140-400) Neutrophils (%) (Auto) 77 % (31-73) Lymphocytes (%) (Auto) 11 % (24-48) Monocytes (%) (Auto) 6 % (0-9) Eosinophils (%) (Auto) 5 % (0-3) Basophils (%) (Auto) 1 % (0-3) Neutrophils # (Auto) 7.5 x10^3uL (1.8-7.7) Lymphocytes # (Auto) 1.1 x10^3/uL (1.0-4.8) Monocytes # (Auto) 0.6 x10^3/uL (0.0-1.1) Eosinophils # (Auto) 0.5 x10^3/uL (0.0-0.7) Basophils # (Auto) 0.1 x10^3/uL (0.0-0.2) Sodium Level 142 mmol/L (136-145) Potassium Level 3.5 mmol/L (3.5-5.1) Chloride Level 104 mmol/L (98-107) Carbon Dioxide Level 27 mmol/L (21-32) Anion Gap 11 (6-14) Blood Urea Nitrogen 21 mg/dL (8-26) Creatinine 1.8 mg/dL (0.7-1.3) Estimated GFR (Cockcroft-Gault) 37.3 BUN/Creatinine Ratio 12 (6-20) Glucose Level 99 mg/dL (70-99) Calcium Level 8.9 mg/dL (8.5-10.1) Total Bilirubin 0.9 mg/dL (0.2-1.0) Aspartate Amino Transf (AST/SGOT) 20 U/L (15-37) Alanine Aminotransferase (ALT/SGPT) 17 U/L (16-63) Alkaline Phosphatase 74 U/L (46-116) Total Protein 6.9 g/dL (6.4-8.2) Albumin 2.0 g/dL (3.4-5.0) Albumin/Globulin Ratio 0.4 (1.0-1.7) Test 01/07/19 08:18 Glucose (Fingerstick) 81 mg/dL (70-99) Medications Current Medications Insulin Human Lispro (HumaLOG) 0-9 UNITS TIDWMEALS SQ Last administered on 12/27at 18:33; Start 12/27/18 at 17:00; Stop 12/28/18 at 07:59; Status DC Dextrose (Dextrose 50%-Water Syringe) 12.5 gm PRN Q15MIN PRN IV SEE COMMENTS Last administered on 01/06/19 08:06; Start 12/27/18 at 16:45 Atorvastatin Calcium (Lipitor) 40 mg HS PO Last administered on 01/06/19 19:41 ; Start 12/27/18 at 21:00 Metoprolol Succinate (Toprol Xl) 25 mg DAILY PO Last administered on 01/06/19 10:04; Start 12/28/18 at 09:00 Niacin (Slo-Niacin) 500 mg HS PO Last administered on 01/06/19 19:41; Start at 21:00 Vitamin D (Vitamin D3) 5,000 unit DAILY PO Last administered on 01/06/19 10:03 ; Start 12/28/18 at 09:00 Non-Formulary Medication (Dulaglutide (Trulicity)) 1.5 mg WEEKLY SQ ; Start 01/03 at 09:00; Status UNV Glimepiride (Amaryl) 4 mg BIDAC PO Last administered on 01/03/19 18:02; Start 12/27/18 at 18:30; Stop 01/04/19 at 07:48; Status DC Hydrochlorothiazide (Hydrodiuril) 25 mg DAILY PO Last administered on 01/03/19 09:30; Start 12/28/18 at 09:00; Stop 01/04/19 at 07:48; Status DC Insulin Glargine (Lantus) 32 units QHS SQ Last administered on 01/03/19 22:15; Start 12/27/18 at 21:00; Stop 01/04/19 at 16:05; Status DC Levothyroxine Sodium (Synthroid) 50 mcg DAILY06 PO Last administered on 05:27; Start 12/28/18 at 06:00 Insulin Human Lispro (HumaLOG) 0-9 UNITS TIDACHC SQ Last administered on 13:01; Start 12/28/18 at 11:30 Labetalol HCl (Normodyne Iv Push) 10 mg PRN Q2HR PRN IVP HYPERTENSION, SEE COMMENTS; Start 12/28/18 at 08:00 Acetaminophen (Tylenol) 500 mg PRN Q6HRS PRN PO MILD PAIN / TEMP; Start at 08:00 Acetaminophen/ Codeine Phosphate (Tylenol #3) 1 tab PRN Q6HRS PRN PO MODERATE TO SEVERE PAIN Last administered on 01/02/19at 02:15; Start 12/28/18 at 08:00 Ondansetron HCl (Zofran) 4 mg PRN Q6HRS PRN IV NAUSEA/VOMITING; Start 12/28/18 at 08:00 Ondansetron HCl (Zofran Odt) 4 mg PRN Q6HRS PRN PO NAUSEA/VOMITING; Start 12/28 at 08:00 Sodium Chloride 1,000 ml @ 75 mls/hr 1X ONCE IV Last administered on at 15:23; Start 12/28/18 at 14:30; Stop 12/29/18 at 03:49; Status DC Sodium Chloride 500 ml @ 250 mls/hr 1X ONCE IV ; Start 12/29/18 at 11:00; Stop 12/29/18 at 12:51; Status DC Influenza Virus Vaccine (Afluria Trivalent [id number] Syringe) 0.5 ml ONCE ONCE VAX IM Last administered on 01/06/19at 17:59; Start 12/29/18 at 10:00; Stop 12/29 at 10:01; Status DC Piperacillin Sod/ Tazobactam Sod (Zosyn Per Pharmacy) 1 each PRN DAILY PRN MC SEE COMMENTS; Start 12/29/18 at 11:45 Aspirin (Ecotrin) 81 mg DAILYWBKFT PO Last administered on 01/06/19at 10:03; Start 12/29/18 at 12:00 Piperacillin Sod/ Tazobactam Sod 3.375 gm/Sodium Chloride 50 ml @ 100 mls/hr Q6HRS IV Last administered on 01/07/19at 00:00; Start 12/29/18 at 12:00 Sodium Chloride 1,000 ml @ 75 mls/hr 1X ONCE IV Last administered on at 01:12; Start 12/30/18 at 00:00; Stop 12/30/18 at 13:19; Status DC Sodium Chloride 500 ml @ 250 mls/hr 1X ONCE IV Last administered on at 08:13; Start 12/30/18 at 09:30; Stop 12/30/18 at 11:29; Status DC Lactobacillus Rhamnosus (Culturelle) 1 cap BID PO Last administered on 19:41; Start 12/29/18 at 21:00 Multivitamins (Thera M Plus) 1 tab DAILY PO Last administered on 01/06/19at 10:04 ; Start 12/30/18 at 09:00 Linezolid/Dextrose 300 ml @ 300 mls/hr Q12HR IV Last administered on 01/06/19 19:42; Start 12/29/18 at 15:00 Midazolam HCl (Versed) 5 mg STK-MED ONCE .ROUTE ; Start 12/30/18 at 08:07; Stop 12/30/18 at 08:08; Status DC Fentanyl Citrate (Fentanyl 2ml Vial) 100 mcg STK-MED ONCE .ROUTE ; Start at 08:07; Stop 12/30/18 at 08:08; Status DC Heparin Sodium (Porcine) (Heparin Sodium) 10,000 unit STK-MED ONCE .ROUTE ; Start 12/30/18 at 08:07; Stop 12/30/18 at 08:08; Status DC Iodixanol (Visipaque 320) 100 ml STK-MED ONCE .ROUTE ; Start 12/30/18 at 08:07; Stop 12/30/18 at 08:08; Status DC Lidocaine HCl (Lidocaine 1% 20ml Vial) 20 ml STK-MED ONCE .ROUTE ; Start at 08:07; Stop 12/30/18 at 08:08; Status DC Heparin Sodium/ Sodium Chloride 1,500 ml @ As Directed STK-MED ONCE .ROUTE ; Start 12/30/18 at 08:07; Stop 12/30/18 at 08:08; Status DC Heparin Sodium/ Sodium Chloride (HEPARIN for ARTERIAL LINE FLUSH) 1,000 unit 1X ONCE IART Last administered on 12/30/18at 10:53; Start 12/30/18 at 09:15; Stop 12/30/18 at 09:16; Status DC Midazolam HCl (Versed) 5 mg 1X ONCE IV Last administered on 12/30/18at 11:01; Start 12/30/18 at 09:15; Stop 12/30/18 at 09:16; Status DC Fentanyl Citrate (Fentanyl 2ml Vial) 100 mcg 1X ONCE IV Last administered on at 10:55; Start 12/30/18 at 09:15; Stop 12/30/18 at 09:16; Status DC Iodixanol (Visipaque 320) 100 ml 1X ONCE IART Last administered on 12/30/18at 11:01; Start 12/30/18 at 09:15; Stop 12/30/18 at 09:16; Status DC Lidocaine HCl (Lidocaine 1% 20ml Vial) 20 ml 1X ONCE INJ Last administered on 12/30/18at 11:01; Start 12/30/18 at 09:15; Stop 12/30/18 at 09:16; Status DC Iodixanol (Visipaque 320) 100 ml STK-MED ONCE .ROUTE ; Start 12/30/18 at 09:42; Stop 12/30/18 at 09:43; Status DC Heparin Sodium (Porcine) (Heparin Sodium) 6,000 unit 1X ONCE IV Last administered on 12/30/18at 11:00; Start 12/30/18 at 09:16; Stop 12/30/18 at 10:06 ; Status DC Lidocaine HCl (Lidocaine 1% 20ml Vial) 20 ml STK-MED ONCE .ROUTE ; Start at 10:06; Stop 12/30/18 at 10:07; Status DC Nitroglycerin (Nitroglycerin) 200 mcg 1X ONCE IART Last administered on at 11:01; Start 12/30/18 at 10:15; Stop 12/30/18 at 10:16; Status DC Protamine Sulfate (Protamine) 50 mg STK-MED ONCE IV ; Start 12/30/18 at 10:39; Stop 12/30/18 at 10:40; Status DC Protamine Sulfate (Protamine) 30 mg 1X ONCE IV Last administered on 12/30/18at 10:48; Start 12/30/18 at 10:48; Stop 12/30/18 at 10:58; Status DC Morphine Sulfate (Morphine Sulfate) 1 mg PRN Q10MIN PRN IV SEVERE PAIN; Start 12/31/18 at 07:00; Stop 01/01/19 at 06:59; Status DC Ringer's Solution 1,000 ml @ 30 mls/hr Q24H IV ; Start 12/31/18 at 07:00; Stop 12/31/18 at 18:59; Status DC Lidocaine HCl (Xylocaine-Mpf 1% 2ml Vial) 2 ml PRN 1X PRN ID PRIOR TO IV START ; Start 12/31/18 at 07:00; Stop 01/01/19 at 06:59; Status DC Hydromorphone HCl (Dilaudid) 0.5 mg PRN Q10MIN PRN IV SEV PAIN, Second choice; Start 12/31/18 at 07:00; Stop 01/01/19 at 06:59; Status DC Prochlorperazine Edisylate (Compazine) 5 mg PACU PRN PRN IV NAUSEA, MRX1 Last administered on 12/31/18at 09:31; Start 12/31/18 at 07:00; Stop 01/01/19 at 06:59 ; Status DC Lidocaine HCl (Xylocaine 1% Pf 30ml Vial) 30 ml STK-MED ONCE .ROUTE Last administered on 12/31/18at 07:18; Start 12/31/18 at 07:02; Stop 12/31/18 at 07:03 ; Status DC Lidocaine HCl (Xylocaine 1% Pf 30ml Vial) 30 ml STK-MED ONCE .ROUTE ; Start at 07:02; Stop 12/31/18 at 07:03; Status DC Bupivacaine HCl (Sensorcaine Mpf 0.5%) 30 ml STK-MED ONCE .ROUTE Last administered on 12/31/18at 07:18; Start 12/31/18 at 07:02; Stop 12/31/18 at 07:03 ; Status DC Ondansetron HCl (Zofran) 4 mg STK-MED ONCE .ROUTE ; Start 12/31/18 at 07:05; Stop 12/31/18 at 07:06; Status DC Lidocaine HCl (Lidocaine Pf 2% Vial) 5 ml STK-MED ONCE .ROUTE ; Start 12/31/18 at 07:05; Stop 12/31/18 at 07:06; Status DC Propofol 20 ml @ As Directed STK-MED ONCE IV ; Start 12/31/18 at 07:05; Stop at 07:06; Status DC Famotidine (Pepcid Vial) 20 mg STK-MED ONCE .ROUTE ; Start 12/31/18 at 07:05; Stop 12/31/18 at 07:06; Status DC Dexamethasone Sodium Phosphate (Decadron) 20 mg STK-MED ONCE .ROUTE ; Start at 07:05; Stop 12/31/18 at 07:06; Status Cancel Fentanyl Citrate (Fentanyl 2ml Vial) 100 mcg STK-MED ONCE .ROUTE ; Start at 07:06; Stop 12/31/18 at 07:07; Status DC Desflurane (Suprane) 60 ml STK-MED ONCE IH ; Start 12/31/18 at 08:45; Stop 12/31 at 08:46; Status DC Prochlorperazine Edisylate (Compazine) 10 mg STK-MED ONCE .ROUTE ; Start at 08:57; Stop 12/31/18 at 08:58; Status DC Ondansetron HCl (Zofran) 4 mg STK-MED ONCE .ROUTE ; Start 12/31/18 at 09:39; Stop 12/31/18 at 09:40; Status DC Sodium Chloride 1,000 ml @ 100 mls/hr Q10H IV ; Start 01/03/19 at 12:00; Stop at 12:00; Status DC Lorazepam (Ativan) 0.5 mg PRN Q6HRS PRN PO ANXIETY / AGITATION Last administered on 01/06/19at 19:41; Start 01/01/19 at 23:00 Clopidogrel Bisulfate (Plavix) 75 mg DAILYWBKFT PO Last administered on at 10:03; Start 01/02/19 at 14:00 Sodium Chloride 1,000 ml @ 75 mls/hr [id number] IV Last administered on 01/04/19at 18:16; Start 01/03/19 at 12:00; Stop 01/05/19 at 18:17; Status DC Potassium Chloride (Klor-Con) 20 meq 1X ONCE PO ; Start 01/04/19 at 08:30; Stop 01/04/19 at 08:31; Status DC Lidocaine HCl (Lidocaine 1% 20ml Vial) 20 ml STK-MED ONCE .ROUTE ; Start at 14:40; Stop 01/04/19 at 14:41; Status DC Heparin Sodium/ Sodium Chloride 500 ml @ As Directed STK-MED ONCE .ROUTE ; Start 01/04/19 at 14:40; Stop 01/04/19 at 14:41; Status DC Midazolam HCl (Versed) 5 mg STK-MED ONCE .ROUTE ; Start 01/04/19 at 14:44; Stop 01/04/19 at 14:45; Status DC Fentanyl Citrate (Fentanyl 2ml Vial) 100 mcg STK-MED ONCE .ROUTE ; Start at 14:45; Stop 01/04/19 at 14:46; Status DC Heparin Sodium (Porcine) (Heparin Sodium) 10,000 unit STK-MED ONCE .ROUTE ; Start 01/04/19 at 14:45; Stop 01/04/19 at 14:46; Status DC Heparin Sodium/ Sodium Chloride (HEPARIN for ARTERIAL LINE FLUSH) 1,000 unit 1X ONCE IART Last administered on 01/04/19 15:30; Start 01/04/19 at 15:30; Stop 01/04/19 at 15:38; Status DC Midazolam HCl (Versed) 5 mg 1X ONCE IV Last administered on 01/04/19 15:30; Start 01/04/19 at 15:30; Stop 01/04/19 at 15:38; Status DC Fentanyl Citrate (Fentanyl 2ml Vial) 100 mcg 1X ONCE IV Last administered on 15:30; Start 01/04/19 at 15:30; Stop 01/04/19 at 15:38; Status DC Iodixanol (Visipaque 320) 100 ml 1X ONCE IART ; Start 01/04/19 at 15:30; Stop at 15:56; Status DC Heparin Sodium (Porcine) (Heparin Sodium) 5,000 unit 1X ONCE IV Last administered on 01/04/19 15:30; Start 01/04/19 at 15:30; Stop 01/04/19 at 15:39; Status DC Lidocaine HCl (Lidocaine 1% 20ml Vial) 20 ml 1X ONCE INJ Last administered on 01/04/19 15:30; Start 01/04/19 at 15:30; Stop 01/04/19 at 15:39; Status DC Insulin Glargine (Lantus) 18 units QHS SQ Last administered on 01/06/19 21:21; Start 01/04/19 at 21:00 Iodixanol (Visipaque 320) 100 ml 1X ONCE IART Last administered on 01/04/19at 16 :30; Start 01/04/19 at 16:30; Stop 01/04/19 at 16:31; Status DC Info (CONTRAST GIVEN -- Rx MONITORING) 1 each PRN DAILY PRN MC SEE COMMENTS; Start 01/04/19 at 16:30; Stop 01/06/19 at 16:29; Status DC Albuterol/ Ipratropium (Duoneb) 3 ml RTQID NEB ; Start 01/05/19 at 08:00; Stop at 08:00; Status DC Amlodipine Besylate (Norvasc) 5 mg DAILY PO Last administered on 01/06/19at 10:04 ; Start 01/05/19 at 10:30 Sodium Chloride 1,000 ml @ 75 mls/hr [id number] IV Last administered on 01/06/19at 18:01; Start 01/06/19 at 18:00 Potassium Chloride (Klor-Con) 40 meq 1X ONCE PO Last administered on 01/06/19at 12:50; Start 01/06/19 at 11:30; Stop 01/06/19 at 11:37; Status DC Tamsulosin HCl (Flomax) 0.4 mg QHS PO Last administered on 01/06/19at 19:41; Start 01/06/19 at 21:00 Iodixanol (Visipaque 320) 100 ml STK-MED ONCE .ROUTE ; Start 01/07/19 at 07:40; Stop 01/07/19 at 07:41; Status DC Lidocaine HCl (Lidocaine 1% 20ml Vial) 20 ml STK-MED ONCE .ROUTE ; Start at 07:40; Stop 01/07/19 at 07:41; Status DC Heparin Sodium/ Sodium Chloride 1,500 ml @ As Directed STK-MED ONCE .ROUTE ; Start 01/07/19 at 07:40; Stop 01/07/19 at 07:41; Status DC Midazolam HCl (Versed) 2 mg STK-MED ONCE .ROUTE ; Start 01/07/19 at 09:35; Stop 01/07/19 at 09:36; Status DC Fentanyl Citrate (Fentanyl 2ml Vial) 100 mcg STK-MED ONCE .ROUTE ; Start at 09:35; Stop 01/07/19 at 09:36; Status DC Verapamil HCl (Verapamil) 5 mg STK-MED ONCE .ROUTE ; Start 01/07/19 at 09:58; Stop 01/07/19 at 09:59; Status DC Heparin Sodium (Porcine) (Heparin Sodium) 10,000 unit STK-MED ONCE .ROUTE ; Start 01/07/19 at 09:58; Stop 01/07/19 at 09:59; Status DC Nitroglycerin (Nitroglycerin) 200 mcg STK-MED ONCE .ROUTE ; Start 01/07/19 at 09: 58; Stop 01/07/19 at 09:59; Status DC Active Scripts Active Reported Cipro (Ciprofloxacin Hcl) 500 Mg Tablet 1 Tab PO BID Niaspan (Niacin) 500 Mg Tab.er.24h 500 Mg PO HS Hydrochlorothiazide Tablet (Hydrochlorothiazide) 12.5 Mg Tablet 25 Mg PO DAILY Metoprolol Succinate ( Xl ) (Metoprolol Succinate) 25 Mg Tab.er.24h 25 Mg PO DAILY Lipitor (Atorvastatin Calcium) 40 Mg Tablet 40 Mg PO HS Trulicity (Dulaglutide) 1.5 Mg/0.5 Ml Pen.injctr 1.5 Mg SQ WEEKLY [place] Solostar (Insulin Glargine,Hum.rec.anlog) 300 Unit/1 Ml Insuln.pen 40 Unit SQ HS Aspirin 81 Mg Tab.chew 81 Mg PO BID Glimepiride 4 Mg Tablet 4 Mg PO BIDAC Synthroid (Levothyroxine Sodium) 50 Mcg Tablet 50 Mcg PO DAILYAC Vitamin D3 (Cholecalciferol (Vitamin D3)) 5,000 Unit Tablet 5,000 Unit PO DAILY Vitals/I & O Vital Sign - Last 24 Hours 01/06/19 01/06/19 01/06/19 01/06/19 10:52 14:45 19:00 20:00 Temp 98.0 97.9 98.0 98.0 97.9 98.0 Pulse 72 73 71 Resp 20 20 20 B/P (MAP) 128/44 (72) 132/79 (96) 161/67 (98) Pulse Ox 99 100 98 O2 Delivery Room Air Room Air Room Air Room Air O2 Flow Rate 2.0 01/06/19 01/07/19 01/07/19 01/07/19 22:27 03:10 05:45 07:00 Temp 98.0 97.6 97.4 98.0 97.6 97.4 Pulse 83 80 80 120 Resp 19 19 20 B/P (MAP) 137/64 (88) 174/83 (113) 116/56 (76) 115/57 (76) Pulse Ox 98 98 97 O2 Delivery Room Air Room Air Room Air Intake and Output 01/06/19 01/06/19 01/07/19 14:59 22:59 06:59 Intake Total 240 ml 800 ml 1300 ml Output Total 450 ml 600 ml Balance 240 ml 350 ml 700 ml PATIENCE ACUÑA III DO Jan 07, 2019 10:16
--- NOTE | 2019-01-07 11:10 | NUR ---
Patient left for procedure at approx 0930.
[2019-01-07] MEDS ORDERED: fentaNYL PF VIAL 100 MCG/2 ML VIAL IV ONE (11:30)
[2019-01-07] MEDS ORDERED: VERAPAMIL 5 MG/2 ML VIAL. IART ONE (11:30)
[2019-01-07] MEDS ORDERED: LIDOCAINE 1% Multi-Dose 20 ML VIAL. INJ ONE (11:30)
[2019-01-07] MEDS ORDERED: HEPARIN for IV BOLUS 10,000 UNIT/10 ML VIAL. IART ONE (11:30)
[2019-01-07] MEDS ORDERED: MIDAZOLAM HCL/PF 2 MG/2 ML VIAL. IV ONE (11:30)
[2019-01-07] MEDS ORDERED: NITROGLYCERIN 200 MCG/2 ML SYRINGE FOR CATH/VASC LAB. IART ONE (11:30)
[2019-01-07] MEDS ORDERED: HEPARIN for IV BOLUS 10,000 UNIT/10 ML VIAL. IV ONE (11:30)
[2019-01-07] MEDS ORDERED: IODIXANOL 320 MG/ML 100 ML VIAL. IART ONE (11:30)
--- NOTE | 2019-01-07 11:46 | PDOC ---
SUBJECTIVE ROS No complaints s/p Arteriogram today OBJECTIVE Vital Signs Vital Signs Date Time Temp Pulse Resp B/P (MAP) Pulse Ox O2 Delivery O2 Flow Rate FiO2 01/07/19 07:00 97.4 120 20 115/57 (76) 97 Room Air 97.4 01/06/19 20:00 2.0 I & 0 Intake and Output 01/07/19 07:00 Intake Total 2340 ml Output Total 1050 ml Balance 1290 ml Intake Oral 1040 ml Other 1300 ml Output Urine Total 1050 ml # Bowel Movements 3 PHYSICAL EXAM Physical Exam GENERAL: NAD HEENT: Oral cavity clear NECK: Supple LUNGS: Clear. HEART: S1, S2 ABDOMEN: Obese, soft, NT, EXTREMITIES: 2+ edema BLE. Right foot bandaged NEUROLOGIC: Alert, responds appropriately - No Alvares Skin No RASH DIAGNOSIS/ASSESSMENT Assessment & Plan CKD 3- Renal function at baseline Follows with us, last seen by me in Sep 2018 Baseline Cr 1.8-2 with egFR cw stage 3 Monitor for XAVIER Hypokalemia- normal Replace as needed Anemia- Noted drop in Hgb Defer to primary Right foot cellulitis- On Abx Right foot all toes gangrene. s/p right leg angioplasty and TMA w/ primary closure on 12/31. Left big toe ulcer s/p debridement to level of bone and tendon on 12/31 PAD Jan 04 2019 S/P LEFT SFA angioplasty,S/P LEFT TIBIAL angioplasty Diabetes- as per Primary Coronary artery disease. Diarrhea C diff neg COMMENT/RELEVANT DATA Meds Current Medications Medications (Trade) Dose Ordered Sig/Zeeshan Start Time Stop Time Status Last Admin Dose Admin Acetaminophen (Tylenol) 500 mg PRN Q6HRS PRN 12/28/18 08:00 Acetaminophen/ Codeine Phosphate (Tylenol #3) 1 tab PRN Q6HRS PRN 12/28/18 08:00 01/02/19 02:15 1 TAB Albuterol/ Ipratropium (Duoneb) 3 ml RTQID 01/05/19 08:00 01/05/19 08:00 DC Amlodipine Besylate (Norvasc) 5 mg DAILY 01/05/19 10:30 01/06/19 10:04 5 MG Aspirin (Ecotrin) 81 mg DAILYWBKFT 12/29/18 12:00 01/06/19 10:03 81 MG Atorvastatin Calcium (Lipitor) 40 mg HS 12/27/18 21:00 01/06/19 19:41 40 MG Bupivacaine HCl (Sensorcaine Mpf 0.5%) 30 ml STK-MED ONCE 12/31/18 07:02 12/31/18 07:03 DC 12/31/18 07:18 4 ML Clopidogrel Bisulfate (Plavix) 75 mg DAILYWBKFT 01/02/19 14:00 01/06/19 10:03 75 MG Desflurane (Suprane) 60 ml STK-MED ONCE 12/31/18 08:45 12/31/18 08:46 DC Dexamethasone Sodium Phosphate (Decadron) 20 mg STK-MED ONCE 12/31/18 07:05 12/31/18 07:06 Cancel Dextrose (Dextrose 50%-Water Syringe) 12.5 gm PRN Q15MIN PRN 12/27/18 16:45 01/06/19 08:06 12.5 GM Famotidine (Pepcid Vial) 20 mg STK-MED ONCE 12/31/18 07:05 12/31/18 07:06 DC Fentanyl Citrate (Fentanyl 2ml Vial) 100 mcg 1X ONCE 01/07/19 11:30 01/07/19 11:32 DC Glimepiride (Amaryl) 4 mg BIDAC 12/27/18 18:30 01/04/19 07:48 DC 01/03/19 18:02 4 MG Heparin Sodium (Porcine) (Heparin Sodium) 6,000 unit 1X ONCE 01/07/19 11:30 01/07/19 11:32 DC Heparin Sodium/ Sodium Chloride (HEPARIN for ARTERIAL LINE FLUSH) 1,000 unit 1X ONCE 01/07/19 11:30 01/07/19 11:32 DC Hydrochlorothiazide (Hydrodiuril) 25 mg DAILY 12/28/18 09:00 01/04/19 07:48 DC 01/03/19 09:30 25 MG Hydromorphone HCl (Dilaudid) 0.5 mg PRN Q10MIN PRN 12/31/18 07:00 01/01/19 06:59 DC Influenza Virus Vaccine (Afluria Trivalent [id number] Syringe) 0.5 ml ONCE ONCE 12/29/18 10:00 12/29/18 10:01 DC 01/06/19 17:59 0.5 ML Info (CONTRAST GIVEN -- Rx MONITORING) 1 each PRN DAILY PRN 01/04/19 16:30 01/06/19 16:29 DC Insulin Glargine (Lantus) 18 units QHS 01/04/19 21:00 01/06/19 21:21 18 UNITS Insulin Human Lispro (HumaLOG) 0-9 UNITS TIDACHC 12/28/18 11:30 01/06/19 13:01 4 UNITS Iodixanol (Visipaque 320) 100 ml 1X ONCE 01/07/19 11:30 01/07/19 11:32 DC Labetalol HCl (Normodyne Iv Push) 10 mg PRN Q2HR PRN 12/28/18 08:00 Lactobacillus Rhamnosus (Culturelle) 1 cap BID 12/29/18 21:00 01/06/19 19:41 1 CAP Levothyroxine Sodium (Synthroid) 50 mcg DAILY06 12/28/18 06:00 01/06/19 05:27 50 MCG Lidocaine HCl (Lidocaine 1% 20ml Vial) 20 ml 1X ONCE 01/07/19 11:30 01/07/19 11:32 DC Lidocaine HCl (Lidocaine Pf 2% Vial) 5 ml STK-MED ONCE 12/31/18 07:05 12/31/18 07:06 DC Lidocaine HCl (Xylocaine 1% Pf 30ml Vial) 30 ml STK-MED ONCE 12/31/18 07:02 12/31/18 07:03 DC Lidocaine HCl (Xylocaine-Mpf 1% 2ml Vial) 2 ml PRN 1X PRN 12/31/18 07:00 01/01/19 06:59 DC Linezolid/Dextrose 300 ml @ 300 mls/hr Q12HR 12/29/18 15:00 01/06/19 19:42 300 MLS/HR Lorazepam (Ativan) 0.5 mg PRN Q6HRS PRN 01/01/19 23:00 01/06/19 19:41 0.5 MG Metoprolol Succinate (Toprol Xl) 25 mg DAILY 12/28/18 09:00 01/06/19 10:04 25 MG Midazolam HCl (Versed) 2 mg 1X ONCE 01/07/19 11:30 01/07/19 11:32 DC Morphine Sulfate (Morphine Sulfate) 1 mg PRN Q10MIN PRN 12/31/18 07:00 01/01/19 06:59 DC Multivitamins (Thera M Plus) 1 tab DAILY 12/30/18 09:00 01/06/19 10:04 1 TAB Niacin (Slo-Niacin) 500 mg HS 12/27/18 21:00 01/06/19 19:41 500 MG Nitroglycerin (Nitroglycerin) 200 mcg 1X ONCE 01/07/19 11:30 01/07/19 11:32 DC Non-Formulary Medication (Dulaglutide (Trulicity)) 1.5 mg WEEKLY 01/03/19 09:00 UNV Ondansetron HCl (Zofran Odt) 4 mg PRN Q6HRS PRN 12/28/18 08:00 Ondansetron HCl (Zofran) 4 mg STK-MED ONCE 12/31/18 09:39 12/31/18 09:40 DC Piperacillin Sod/ Tazobactam Sod (Zosyn Per Pharmacy) 1 each PRN DAILY PRN 12/29/18 11:45 Piperacillin Sod/ Tazobactam Sod 3.375 gm/Sodium Chloride 50 ml @ 100 mls/hr Q6HRS 12/29/18 12:00 01/07/19 00:00 100 MLS/HR Potassium Chloride (Klor-Con) 40 meq 1X ONCE 01/06/19 11:30 01/06/19 11:37 DC 01/06/19 12:50 40 MEQ Prochlorperazine Edisylate (Compazine) 10 mg STK-MED ONCE 12/31/18 08:57 12/31/18 08:58 DC Propofol 20 ml @ As Directed STK-MED ONCE 12/31/18 07:05 12/31/18 07:06 DC Protamine Sulfate (Protamine) 30 mg 1X ONCE 12/30/18 10:48 12/30/18 10:58 DC 12/30/18 10:48 30 MG Ringer's Solution 1,000 ml @ 30 mls/hr Q24H 12/31/18 07:00 12/31/18 18:59 DC Sodium Chloride 1,000 ml @ 75 mls/hr [id number] 01/06/19 18:00 01/06/19 18:01 75 MLS/HR Tamsulosin HCl (Flomax) 0.4 mg QHS 01/06/19 21:00 01/06/19 19:41 0.4 MG Verapamil HCl (Verapamil) 2.5 mg 1X ONCE 01/07/19 11:30 01/07/19 11:32 DC Vitamin D (Vitamin D3) 5,000 unit DAILY 12/28/18 09:00 01/06/19 10:03 5,000 UNIT Lab Laboratory Tests Test 01/06/19 12:06 01/06/19 17:12 01/06/19 20:59 01/07/19 03:45 Glucose (Fingerstick) 185 mg/dL (70-99) 131 mg/dL (70-99) 170 mg/dL (70-99) White Blood Count 9.8 x10^3/uL (4.0-11.0) Red Blood Count 3.25 x10^6/uL (4.30-5.70) Hemoglobin 9.6 g/dL (13.0-17.5) Hematocrit 29.1 % (39.0-53.0) Mean Corpuscular Volume 90 fL (79-100) Mean Corpuscular Hemoglobin 30 pg (25-35) Mean Corpuscular Hemoglobin Concent 33 g/dL (31-37) Red Cell Distribution Width 14.1 % (11.5-14.5) Platelet Count 199 x10^3/uL (140-400) Neutrophils (%) (Auto) 77 % (31-73) Lymphocytes (%) (Auto) 11 % (24-48) Monocytes (%) (Auto) 6 % (0-9) Eosinophils (%) (Auto) 5 % (0-3) Basophils (%) (Auto) 1 % (0-3) Neutrophils # (Auto) 7.5 x10^3uL (1.8-7.7) Lymphocytes # (Auto) 1.1 x10^3/uL (1.0-4.8) Monocytes # (Auto) 0.6 x10^3/uL (0.0-1.1) Eosinophils # (Auto) 0.5 x10^3/uL (0.0-0.7) Basophils # (Auto) 0.1 x10^3/uL (0.0-0.2) Sodium Level 142 mmol/L (136-145) Potassium Level 3.5 mmol/L (3.5-5.1) Chloride Level 104 mmol/L (98-107) Carbon Dioxide Level 27 mmol/L (21-32) Anion Gap 11 (6-14) Blood Urea Nitrogen 21 mg/dL (8-26) Creatinine 1.8 mg/dL (0.7-1.3) Estimated GFR (Cockcroft-Gault) 37.3 BUN/Creatinine Ratio 12 (6-20) Glucose Level 99 mg/dL (70-99) Calcium Level 8.9 mg/dL (8.5-10.1) Total Bilirubin 0.9 mg/dL (0.2-1.0) Aspartate Amino Transf (AST/SGOT) 20 U/L (15-37) Alanine Aminotransferase (ALT/SGPT) 17 U/L (16-63) Alkaline Phosphatase 74 U/L (46-116) Total Protein 6.9 g/dL (6.4-8.2) Albumin 2.0 g/dL (3.4-5.0) Albumin/Globulin Ratio 0.4 (1.0-1.7) Test 01/07/19 08:18 Glucose (Fingerstick) 81 mg/dL (70-99) Results All relevant outside records, renal labs, imaging studies, telemetry/EKG's were reviewed. RICHIE GONZALEZ MD Jan 07, 2019 11:46
[2019-01-07] MEDS: PIPERACILLIN/TAZOBACTAM 3.375 GM in IV NORMAL SALINE 50ML 50 ML IV SCH ×4 (12:00→18:15)
[2019-01-07] MEDS ORDERED: PROTAMINE 50 MG/5 ML VIAL. IV ONE ×2 (12:28→12:45)
--- NOTE | 2019-01-07 13:23 | PDOC4 ---
OPERATIVE NOTE Date: Date: Jan 07, 2019 Pre-Op Diagnosis: Atherosclerosis of tejon arteries of left leg with ulceration of left great toe (other part of foot) Severe tibial occlusive disease Post-Op Diagnosis: same as above Procedure Performed: Ultrasound guided access left Dorsalis pedis artery Ultrasound guided access left common femoral artery Angioplasty of left Anterior tibial artery Angioplasty of left peroneal artery Surgeon: Riley Rodriguez MD Anesthesia Type: Conscious sedation under nurse and physician supervision Blood Loss: 20 mL Specimans Obtained: None Findings: Left anterior tibial artery completely occluded, recanalized via balloon angioplasty after body floss technique to cross long segment JULIO CESAR occlusion from left dorsalis pedis access and left common femoral access Left peroneal artery with focal stenosis improved with balloon angioplasty Complications: None Operative Note: Patient was escorted to the Security Infrastructure Engineer and placed supine on the table in the left groin and left foot were prepped and draped in usual sterile fashion. An appropriate timeout was performed. After placement of appropriate monitoring devices conscious patient was induced under physician and nurse supervision using intravenous fentanyl and Versed. 4 doses please see catheter lab report, 120 minutes total Tension was directed to the left dorsum of the foot where the ultrasound was used to guide examination the dorsalis pedis artery. Was found to be patent but with a very small lumen. An image of the vessels taken and saved for the medical record. The DP was identified and local anesthetic was injected in the foot. After couple of attempts we were able to access the left dorsalis pedis and retrograde fashion using a Bruin Brake Cables micropuncture kit and passed a Bruin Brake Cables micropuncture sheath retrograde in the dorsalis pedis artery. Angiography through the sheath confirmed luminal placement. I then introduced a V 18 wire retrograde into the anterior tibial artery and attempted across this only from a retrograde tibial approach but was unable to reenter the true lumen retrograde at the JULIO CESAR proximally. Unfortunately he did not have a small angled catheter to go through the sheath so I directed attention to the left groin with a left common femoral artery was fluoroscopically marked or the femoral head. This was examined under ultrasound and found to be widely patent with good flow. An image of the vessels taken and saved for the medical record. Under ultrasound guidance local anesthetic was injected in the left groin and left common femoral artery was accessed in antegrade fashion with Inderjit puncture needle. The Seldinger technique was used to pass a micro-puncture wire into the SFA under fluoroscopic guidance and exchanged the needle for a micropuncture sheath. This backbled easily and was used to introduce a supra core wire into the left popliteal artery under fluoroscopic guidance. This was used to exchange the micro-puncture sheath for a 6 Kinyarwanda 45 cm trauma destination sheath passed down to the popliteal artery under fluoroscopic guidance. Patient was given intravenous heparin. I used an angled Navicross catheter and a Glidewire to select origin anterior tibial artery and then passed another V 18 wire antegrade down the JULIO CESAR until the wires crossed. I attempted the past this out into the foot but it would not pass distally, even with the retrograde wire acting as a eda wire. The catheter was advanced down to the mid JULIO CESAR and then the V 18 from the foot was pulled back. I was able to then pass of the 18 wire retrograde from the foot into the JULIO CESAR and passed this under fluoroscopic guidance into the lumen of the Navicross catheter retrograde through the tip of the catheter. The wire was advanced until it came out the proximal end of the catheter at the groin and the patient was thus by flossed. At this point we do not have appropriate 0.018 balloon available and so I advanced the Navicross catheter all the way down to the ankle over the 018 wire and then removed the wire. I used this to pass a 0.014 command wire out into the pedal arch and then removed the pedal access sheath after angiography around the wire through the 035 catheter confirmed luminal placement of the wire. I then used the wire to introduce a series of angioplasty balloons including a 3.5 x 150 balloon to angioplasty the proximal two thirds of the JULIO CESAR and a 2.5 x 200 Jacobs balloon to angioplasty the very distal JULIO CESAR at the ankle and knee dorsalis pedis onto the foot. Completion angiogram showed in-line flow to the foot via a recannulated JULIO CESAR and her cells pedis with good collateralization onto the great toe over the wound is. There was a focal stenosis visualized and the peroneal artery and so the wire was pulled back in the popliteal redirected by the peroneal and a 2.5 mm balloon was advanced and the peroneal artery and used to angioplasty the stenosis of the peroneal with good results. Angiogram showed good 2 vessel runoff to the ankle with the JULIO CESAR and DP extending out into the foot. There was an excellent Doppler signal at the left dorsalis pedis and the midfoot. Protamine was used to reverse the heparin and after listening given adequate time for circulation the sheath was removed over the supra core wire and a Angio-Seal device was deployed at the left femoral access site with excellent hemostasis. After this was done there was still excellent signal in the left foot. Patient was escorted back to his room in stable condition without access site location with a good signal in the foot. He's artery on aspirin and Plavix, we' ll continue IV hydration overnight for renal insufficiency. RILEY RODRIGUEZ MD Jan 07, 2019 13:23
--- NOTE | 2019-01-07 16:37 | PDOC ---
Provider Note Provider Note Pt seen and examined in his hospital bed just now s/p left leg percutaneous revascularization earlier today He has no c/o other than wanting to sit up He denies any abdominal pain, groin pain, back pain, etc VSS left BRICKLAYER access site is soft, non-tender no mass no hematoma left ankle now with easily palpable DP pulse and strong peroneal signal right TMA dressing taken down -- looks good doing well May be up out of bed now forefoot wedge for both feet will need IV hydration overnight Likely home tomorrow -- will need wound care for left great toe wound RILEY RODRIGUEZ MD Jan 07, 2019 16:37
[2019-01-07] MEDS: ATORVASTATIN CALCIUM 40 MG TABLET. PO SCH (20:17)
[2019-01-07] MEDS: LORazepam 0.5 MG TABLET PO PRN (20:18)
[2019-01-07] MEDS: NIACIN ER 500 MG TABLET.ER PO SCH (20:18)
[2019-01-07] MEDS: TAMSULOSIN 0.4 MG CAP.ER.24H. PO SCH (20:18)
[2019-01-07] MEDS: INSULIN GLARGINE 300 UNITS/3 ML INSULN.PEN. SQ SCH (22:16)
[2019-01-08] MEDS: PIPERACILLIN/TAZOBACTAM 3.375 GM in IV NORMAL SALINE 50ML 50 ML IV SCH ×5 (01:07→21:07)
[2019-01-08 02:46] VITALS: BP 148/69
[2019-01-08 03:36] LABS: BASO # 0.1 x10^3/uL (0.0-0.2); BASO % 1 % (0-3); EOS # 0.2 x10^3/uL (0.0-0.7); EOS % 3 % (0-3); HEMATOCRIT 26.2 % (39.0-53.0); HEMOGLOBIN 8.6 g/dL (13.0-17.5); LYMPH # 0.7 x10^3/uL (1.0-4.8); LYMPH % 8 % (24-48); MEAN CORPUSCULAR HEMOGLOBIN 30 pg (25-35); MEAN CORPUSCULAR HGB CONC 33 g/dL (31-37); MEAN CORPUSCULAR VOLUME 91 fL (79-100); MONO # 0.6 x10^3/uL (0.0-1.1); MONO % 7 % (0-9); NEUT # 6.9 x10^3uL (1.8-7.7); NEUT % 81 % (31-73); PLATELET COUNT 148 x10^3/uL (140-400); RED BLOOD COUNT 2.88 x10^6/uL (4.30-5.70); RED CELL DISTRIBUTION WIDTH 13.9 % (11.5-14.5); WHITE BLOOD COUNT 8.5 x10^3/uL (4.0-11.0)
[2019-01-08 04:10] LABS: ALBUMIN 1.9 g/dL (3.4-5.0); ALBUMIN/GLOBULIN RATIO 0.4 (1.0-1.7); CALCIUM 8.4 mg/dL (8.5-10.1); CREATININE 1.7 mg/dL (0.7-1.3); GFR 39.8; POTASSIUM 4.3 mmol/L (3.5-5.1); TOTAL BILIRUBIN 0.7 mg/dL (0.2-1.0); TOTAL PROTEIN 6.2 g/dL (6.4-8.2)
[2019-01-08] MEDS: IV NORMAL SALINE 1000ML BAG 1,000 ML IV SCH ×3 (05:54→20:58)
[2019-01-08] MEDS: LEVOTHYROXINE 50 MCG TABLET PO SCH (05:56)
[2019-01-08 07:00] VITALS: BP 139/63
--- NOTE | 2019-01-08 07:29 | PDOC ---
Infectious Disease Note Subjective: Subjective pt sleepy ,arousable, says pain is under control no f/c/n/v occ loose bm ROS: ROS Negative except for above. Vital Signs: Vital Signs Vital Signs Date Time Temp Pulse Resp B/P (MAP) Pulse Ox O2 Delivery O2 Flow Rate FiO2 01/08/19 02:46 98.2 98 17 148/69 (95) 96 Room Air 98.2 01/07/19 20:00 2.0 Medications: Inpatient Meds: Current Medications Medications (Trade) Dose Ordered Sig/Zeeshan Start Time Stop Time Status Last Admin Dose Admin Acetaminophen (Tylenol) 500 mg PRN Q6HRS PRN 12/28/18 08:00 Acetaminophen/ Codeine Phosphate (Tylenol #3) 1 tab PRN Q6HRS PRN 12/28/18 08:00 01/02/19 02:15 1 TAB Albuterol/ Ipratropium (Duoneb) 3 ml RTQID 01/05/19 08:00 01/05/19 08:00 DC Amlodipine Besylate (Norvasc) 5 mg DAILY 01/05/19 10:30 01/07/19 09:00 5 MG Aspirin (Ecotrin) 81 mg DAILYWBKFT 12/29/18 12:00 01/06/19 10:03 81 MG Atorvastatin Calcium (Lipitor) 40 mg HS 12/27/18 21:00 01/07/19 20:17 40 MG Bupivacaine HCl (Sensorcaine Mpf 0.5%) 30 ml STK-MED ONCE 12/31/18 07:02 12/31/18 07:03 DC 12/31/18 07:18 4 ML Clopidogrel Bisulfate (Plavix) 75 mg DAILYWBKFT 01/02/19 14:00 01/06/19 10:03 75 MG Desflurane (Suprane) 60 ml STK-MED ONCE 12/31/18 08:45 12/31/18 08:46 DC Dexamethasone Sodium Phosphate (Decadron) 20 mg STK-MED ONCE 12/31/18 07:05 12/31/18 07:06 Cancel Dextrose (Dextrose 50%-Water Syringe) 12.5 gm PRN Q15MIN PRN 12/27/18 16:45 01/06/19 08:06 12.5 GM Famotidine (Pepcid Vial) 20 mg STK-MED ONCE 12/31/18 07:05 12/31/18 07:06 DC Fentanyl Citrate (Fentanyl 2ml Vial) 100 mcg STK-MED ONCE 01/07/19 12:01 01/07/19 12:02 DC Glimepiride (Amaryl) 4 mg BIDAC 12/27/18 18:30 01/04/19 07:48 DC 01/03/19 18:02 4 MG Heparin Sodium (Porcine) (Heparin Sodium) 6,000 unit 1X ONCE 01/07/19 11:30 01/07/19 11:32 DC 01/07/19 12:46 8,000 UNIT Heparin Sodium/ Sodium Chloride (HEPARIN for ARTERIAL LINE FLUSH) 1,000 unit 1X ONCE 01/07/19 11:30 01/07/19 11:32 DC 01/07/19 12:44 1,000 UNIT Hydrochlorothiazide (Hydrodiuril) 25 mg DAILY 12/28/18 09:00 01/04/19 07:48 DC 01/03/19 09:30 25 MG Hydromorphone HCl (Dilaudid) 0.5 mg PRN Q10MIN PRN 12/31/18 07:00 01/01/19 06:59 DC Influenza Virus Vaccine (Afluria Trivalent [id number] Syringe) 0.5 ml ONCE ONCE 12/29/18 10:00 12/29/18 10:01 DC 01/06/19 17:59 0.5 ML Info (CONTRAST GIVEN -- Rx MONITORING) 1 each PRN DAILY PRN 01/04/19 16:30 01/06/19 16:29 DC Insulin Glargine (Lantus) 18 units QHS 01/04/19 21:00 01/07/19 22:16 18 UNITS Insulin Human Lispro (HumaLOG) 0-9 UNITS TIDACHC 12/28/18 11:30 01/06/19 13:01 4 UNITS Iodixanol (Visipaque 320) 100 ml 1X ONCE 01/07/19 11:30 01/07/19 11:32 DC 01/07/19 12:46 45 ML Labetalol HCl (Normodyne Iv Push) 10 mg PRN Q2HR PRN 12/28/18 08:00 Lactobacillus Rhamnosus (Culturelle) 1 cap BID 12/29/18 21:00 01/07/19 20:17 1 CAP Levothyroxine Sodium (Synthroid) 50 mcg DAILY06 12/28/18 06:00 01/08/19 05:56 50 MCG Lidocaine HCl (Lidocaine 1% 20ml Vial) 20 ml 1X ONCE 01/07/19 11:30 01/07/19 11:32 DC 01/07/19 12:44 9 ML Lidocaine HCl (Lidocaine Pf 2% Vial) 5 ml STK-MED ONCE 12/31/18 07:05 12/31/18 07:06 DC Lidocaine HCl (Xylocaine 1% Pf 30ml Vial) 30 ml STK-MED ONCE 12/31/18 07:02 12/31/18 07:03 DC Lidocaine HCl (Xylocaine-Mpf 1% 2ml Vial) 2 ml PRN 1X PRN 12/31/18 07:00 01/01/19 06:59 DC Linezolid/Dextrose 300 ml @ 300 mls/hr Q12HR 12/29/18 15:00 01/07/19 20:17 300 MLS/HR Lorazepam (Ativan) 0.5 mg PRN Q6HRS PRN 01/01/19 23:00 01/07/19 20:18 0.5 MG Metoprolol Succinate (Toprol Xl) 25 mg DAILY 12/28/18 09:00 01/07/19 18:49 25 MG Midazolam HCl (Versed) 2 mg STK-MED ONCE 01/07/19 12:00 01/07/19 12:01 DC Morphine Sulfate (Morphine Sulfate) 1 mg PRN Q10MIN PRN 12/31/18 07:00 01/01/19 06:59 DC Multivitamins (Thera M Plus) 1 tab DAILY 12/30/18 09:00 01/06/19 10:04 1 TAB Niacin (Slo-Niacin) 500 mg HS 12/27/18 21:00 01/07/19 20:18 500 MG Nitroglycerin (Nitroglycerin) 200 mcg STK-MED ONCE 01/07/19 12:26 01/07/19 12:27 DC Non-Formulary Medication (Dulaglutide (Trulicity)) 1.5 mg WEEKLY 01/03/19 09:00 UNV Ondansetron HCl (Zofran Odt) 4 mg PRN Q6HRS PRN 12/28/18 08:00 Ondansetron HCl (Zofran) 4 mg STK-MED ONCE 12/31/18 09:39 12/31/18 09:40 DC Piperacillin Sod/ Tazobactam Sod (Zosyn Per Pharmacy) 1 each PRN DAILY PRN 12/29/18 11:45 Piperacillin Sod/ Tazobactam Sod 3.375 gm/Sodium Chloride 50 ml @ 100 mls/hr Q6HRS 12/29/18 12:00 01/08/19 05:54 100 MLS/HR Potassium Chloride (Klor-Con) 40 meq 1X ONCE 01/06/19 11:30 01/06/19 11:37 DC 01/06/19 12:50 40 MEQ Prochlorperazine Edisylate (Compazine) 10 mg STK-MED ONCE 12/31/18 08:57 12/31/18 08:58 DC Propofol 20 ml @ As Directed STK-MED ONCE 12/31/18 07:05 12/31/18 07:06 DC Protamine Sulfate (Protamine) 30 mg 1X ONCE 01/07/19 12:45 01/07/19 12:46 DC 01/07/19 12:45 30 MG Ringer's Solution 1,000 ml @ 30 mls/hr Q24H 12/31/18 07:00 12/31/18 18:59 DC Sodium Chloride 1,000 ml @ 150 mls/hr Q6H40M 01/07/19 13:15 01/08/19 09:00 01/08/19 05:54 150 MLS/HR Tamsulosin HCl (Flomax) 0.4 mg QHS 01/06/19 21:00 01/07/19 20:18 0.4 MG Verapamil HCl (Verapamil) 2.5 mg 1X ONCE 01/07/19 11:30 01/07/19 12:34 DC Vitamin D (Vitamin D3) 5,000 unit DAILY 12/28/18 09:00 01/06/19 10:03 5,000 UNIT Labs: Lab Laboratory Tests Test 01/07/19 08:18 01/07/19 12:22 01/07/19 17:51 01/07/19 21:39 Glucose (Fingerstick) 81 mg/dL (70-99) 152 mg/dL (70-99) 171 mg/dL (70-99) Activated Clotting Time 253 sec (92-181) Test 01/08/19 03:00 White Blood Count 8.5 x10^3/uL (4.0-11.0) Red Blood Count 2.88 x10^6/uL (4.30-5.70) Hemoglobin 8.6 g/dL (13.0-17.5) Hematocrit 26.2 % (39.0-53.0) Mean Corpuscular Volume 91 fL (79-100) Mean Corpuscular Hemoglobin 30 pg (25-35) Mean Corpuscular Hemoglobin Concent 33 g/dL (31-37) Red Cell Distribution Width 13.9 % (11.5-14.5) Platelet Count 148 x10^3/uL (140-400) Neutrophils (%) (Auto) 81 % (31-73) Lymphocytes (%) (Auto) 8 % (24-48) Monocytes (%) (Auto) 7 % (0-9) Eosinophils (%) (Auto) 3 % (0-3) Basophils (%) (Auto) 1 % (0-3) Neutrophils # (Auto) 6.9 x10^3uL (1.8-7.7) Lymphocytes # (Auto) 0.7 x10^3/uL (1.0-4.8) Monocytes # (Auto) 0.6 x10^3/uL (0.0-1.1) Eosinophils # (Auto) 0.2 x10^3/uL (0.0-0.7) Basophils # (Auto) 0.1 x10^3/uL (0.0-0.2) Sodium Level 140 mmol/L (136-145) Potassium Level 4.3 mmol/L (3.5-5.1) Chloride Level 104 mmol/L (98-107) Carbon Dioxide Level 28 mmol/L (21-32) Anion Gap 8 (6-14) Blood Urea Nitrogen 19 mg/dL (8-26) Creatinine 1.7 mg/dL (0.7-1.3) Estimated GFR (Cockcroft-Gault) 39.8 BUN/Creatinine Ratio 11 (6-20) Glucose Level 194 mg/dL (70-99) Calcium Level 8.4 mg/dL (8.5-10.1) Total Bilirubin 0.7 mg/dL (0.2-1.0) Aspartate Amino Transf (AST/SGOT) 24 U/L (15-37) Alanine Aminotransferase (ALT/SGPT) 18 U/L (16-63) Alkaline Phosphatase 70 U/L (46-116) Total Protein 6.2 g/dL (6.4-8.2) Albumin 1.9 g/dL (3.4-5.0) Albumin/Globulin Ratio 0.4 (1.0-1.7) Objective: Assessment: Right foot cellulitis. Right foot all toes gangrene. s/p right leg angioplasty and TMA w/ primary closure on 12/31. Left big toe ulcer s/p debridement to level of bone and tendon on 12/31 PAD Jan 04 2019 S/P LEFT SFA angioplasty,S/P LEFT TIBIAL angioplasty January 07 2019 Angioplasty of left Anterior tibial artery Angioplasty of left peroneal artery Leukocytosis. Diabetes. Coronary artery disease. Renal insufficiency. Diarrhea C diff neg Plan: Plan of Care Zyvox, Zosyn Probiotics Wound care Supportive care JESSA CALLAHAN MD Jan 08, 2019 07:29
[2019-01-08] MEDS: INSULIN LISPRO 300 UNITS/3 ML INSULN.PEN. SQ SCH ×4 (07:30→21:00)
[2019-01-08] MEDS: ASPIRIN ENTERIC COATED 81 MG TABLET.DR. PO SCH (08:46)
[2019-01-08] MEDS: LACTOBACILLUS RHAMNOSUS GG 1 CAPSULE. PO SCH ×2 (08:47→21:06)
[2019-01-08] MEDS: CHOLECALCIFEROL (VITAMIN D3) 5,000 UNIT CAPSULE PO SCH (08:47)
[2019-01-08] MEDS: MULTIVITAMIN with MINERAL TABLET. PO SCH (08:47)
[2019-01-08] MEDS: CLOPIDOGREL BISULFATE 75 MG TABLET PO SCH (08:47)
[2019-01-08] MEDS: amLODIPine BESYLATE 5 MG TABLET PO SCH (08:48)
[2019-01-08] MEDS: METOPROLOL SUCC 24HR ER 25 MG TAB.ER.24H. PO SCH (08:49)
--- NOTE | 2019-01-08 10:55 | SNU/HH DC ---
DISCHARGE ORDERS DISCHARGE INFORMATION: CONDITION ON DISCHARGE: Stable CODE STATUS: Code Status: Full ALF: SNF STAY <30 DAYS: Yes HOSPICE: HOSPICE: No HOSPICE EVAL & TREAT: No POST DISCHARGE ORDERS: WEIGHT BEARING STATUS: Partial weight bearing DIET AFTER DISCHARGE: Cardiac TREATMENT/EQUIPMENT ORDERS: Physical Therapy For: Evalulation/Treatment Occupational Therapy For: Evaluation/Treatment DISCHARGE MEDICATIONS: Home Meds Reported Medications Niacin (NIASPAN) 500 Mg Tab.er.24h, 500 MG PO HS, TAB.SR 04/09/17 Hydrochlorothiazide (HYDROCHLOROTHIAZIDE TABLET) 12.5 Mg Tablet, 25 MG PO DAILY for DIURETIC, TAB 0 Refills 04/09/17 Metoprolol Succinate (METOPROLOL SUCCINATE ( XL )) 25 Mg Tab.er.24h, 25 MG PO DAILY for FOR HYPERTENSION, #30 TAB 0 Refills 04/09/17 Atorvastatin Calcium (LIPITOR) 40 Mg Tablet, 40 MG PO HS for FOR CHOLESTEROL, # 30 TAB 0 Refills 04/09/17 Dulaglutide (Trulicity) 1.5 Mg/0.5 Ml Pen.injctr, 1.5 MG SQ WEEKLY, EACH 04/09/17 Insulin Glargine,Hum.rec.anlog (Re Solsarahi) 300 Unit/1 Ml Insuln.pen, 40 UNIT SQ HS, EACH 04/09/17 Aspirin (ASPIRIN) 81 Mg Tab.chew, 81 MG PO BID, TAB.CHEW 04/09/17 Glimepiride (GLIMEPIRIDE) 4 Mg Tablet, 4 MG PO BIDAC, TAB 04/09/17 Levothyroxine Sodium (SYNTHROID) 50 Mcg Tablet, 50 MCG PO DAILYAC for THYROID SUPPLEMENT, #30 TAB 0 Refills 04/09/17 Cholecalciferol (Vitamin D3) (VITAMIN D3) 5,000 Unit Tablet, 5000 UNIT PO DAILY , TAB 04/09/17 Discontinued Reported Medications Ciprofloxacin Hcl (CIPRO) 500 Mg Tablet, 1 TAB PO BID, #6 TAB 04/10/17 PATIENCE ACUÑA III DO Jan 08, 2019 10:55
[2019-01-08 11:00] VITALS: BP 120/51
--- NOTE | 2019-01-08 11:07 | PDOC ---
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 PMH of HTN, CVA , DM2 Mr Watson was seen and examined this morning, resting in chair at bedside, NAD Discussed with RN Discussed angiogram and angioplasty procedure done yesterday Discussed discharge plans, hope to D/C to SNF in the next few days Vitals Vitals Vital Signs Date Time Temp Pulse Resp B/P (MAP) Pulse Ox O2 Delivery O2 Flow Rate FiO2 01/08/19 08:49 84 139/63 01/08/19 07:00 98.1 16 93 Room Air 98.1 01/07/19 20:00 2.0 Physical Exam General: Alert, Oriented X3, Cooperative, No acute distress Heart: Regular rate, Normal S1, Normal S2, No murmurs Lungs: Clear Abdomen: Soft, No tenderness Extremities: No clubbing, No cyanosis, Other (R foot with bandage CDI, L foot with bandage on dorsal aspect of MCP joint) Skin: Other (R groin surgical access site has a clean/dry/intact dressing ) Labs LABS Laboratory Tests Test 01/07/19 12:22 01/07/19 17:51 01/07/19 21:39 01/08/19 03:00 Activated Clotting Time 253 sec (92-181) Glucose (Fingerstick) 152 mg/dL (70-99) 171 mg/dL (70-99) White Blood Count 8.5 x10^3/uL (4.0-11.0) Red Blood Count 2.88 x10^6/uL (4.30-5.70) Hemoglobin 8.6 g/dL (13.0-17.5) Hematocrit 26.2 % (39.0-53.0) Mean Corpuscular Volume 91 fL (79-100) Mean Corpuscular Hemoglobin 30 pg (25-35) Mean Corpuscular Hemoglobin Concent 33 g/dL (31-37) Red Cell Distribution Width 13.9 % (11.5-14.5) Platelet Count 148 x10^3/uL (140-400) Neutrophils (%) (Auto) 81 % (31-73) Lymphocytes (%) (Auto) 8 % (24-48) Monocytes (%) (Auto) 7 % (0-9) Eosinophils (%) (Auto) 3 % (0-3) Basophils (%) (Auto) 1 % (0-3) Neutrophils # (Auto) 6.9 x10^3uL (1.8-7.7) Lymphocytes # (Auto) 0.7 x10^3/uL (1.0-4.8) Monocytes # (Auto) 0.6 x10^3/uL (0.0-1.1) Eosinophils # (Auto) 0.2 x10^3/uL (0.0-0.7) Basophils # (Auto) 0.1 x10^3/uL (0.0-0.2) Sodium Level 140 mmol/L (136-145) Potassium Level 4.3 mmol/L (3.5-5.1) Chloride Level 104 mmol/L (98-107) Carbon Dioxide Level 28 mmol/L (21-32) Anion Gap 8 (6-14) Blood Urea Nitrogen 19 mg/dL (8-26) Creatinine 1.7 mg/dL (0.7-1.3) Estimated GFR (Cockcroft-Gault) 39.8 BUN/Creatinine Ratio 11 (6-20) Glucose Level 194 mg/dL (70-99) Calcium Level 8.4 mg/dL (8.5-10.1) Total Bilirubin 0.7 mg/dL (0.2-1.0) Aspartate Amino Transf (AST/SGOT) 24 U/L (15-37) Alanine Aminotransferase (ALT/SGPT) 18 U/L (16-63) Alkaline Phosphatase 70 U/L (46-116) Total Protein 6.2 g/dL (6.4-8.2) Albumin 1.9 g/dL (3.4-5.0) Albumin/Globulin Ratio 0.4 (1.0-1.7) Test 01/08/19 08:16 Glucose (Fingerstick) 164 mg/dL (70-99) Review of Systems Review of Systems Pt reports mild generalized weakness Pt denies CP, SOB, PEARSON, n/v Assessment and Plan Assessmemt and Plan dry gangrene, ischemic toes, atherosclerosis of [place] arteries of right leg with gangrene of all toes --> s/ p perc revascularization 01/02/19 --> 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 Labs Laboratory Tests Test 01/06/19 12:06 01/06/19 17:12 01/06/19 20:59 01/07/19 03:45 Glucose (Fingerstick) 185 mg/dL (70-99) 131 mg/dL (70-99) 170 mg/dL (70-99) White Blood Count 9.8 x10^3/uL (4.0-11.0) Red Blood Count 3.25 x10^6/uL (4.30-5.70) Hemoglobin 9.6 g/dL (13.0-17.5) Hematocrit 29.1 % (39.0-53.0) Mean Corpuscular Volume 90 fL (79-100) Mean Corpuscular Hemoglobin 30 pg (25-35) Mean Corpuscular Hemoglobin Concent 33 g/dL (31-37) Red Cell Distribution Width 14.1 % (11.5-14.5) Platelet Count 199 x10^3/uL (140-400) Neutrophils (%) (Auto) 77 % (31-73) Lymphocytes (%) (Auto) 11 % (24-48) Monocytes (%) (Auto) 6 % (0-9) Eosinophils (%) (Auto) 5 % (0-3) Basophils (%) (Auto) 1 % (0-3) Neutrophils # (Auto) 7.5 x10^3uL (1.8-7.7) Lymphocytes # (Auto) 1.1 x10^3/uL (1.0-4.8) Monocytes # (Auto) 0.6 x10^3/uL (0.0-1.1) Eosinophils # (Auto) 0.5 x10^3/uL (0.0-0.7) Basophils # (Auto) 0.1 x10^3/uL (0.0-0.2) Sodium Level 142 mmol/L (136-145) Potassium Level 3.5 mmol/L (3.5-5.1) Chloride Level 104 mmol/L (98-107) Carbon Dioxide Level 27 mmol/L (21-32) Anion Gap 11 (6-14) Blood Urea Nitrogen 21 mg/dL (8-26) Creatinine 1.8 mg/dL (0.7-1.3) Estimated GFR (Cockcroft-Gault) 37.3 BUN/Creatinine Ratio 12 (6-20) Glucose Level 99 mg/dL (70-99) Calcium Level 8.9 mg/dL (8.5-10.1) Total Bilirubin 0.9 mg/dL (0.2-1.0) Aspartate Amino Transf (AST/SGOT) 20 U/L (15-37) Alanine Aminotransferase (ALT/SGPT) 17 U/L (16-63) Alkaline Phosphatase 74 U/L (46-116) Total Protein 6.9 g/dL (6.4-8.2) Albumin 2.0 g/dL (3.4-5.0) Albumin/Globulin Ratio 0.4 (1.0-1.7) Test 01/07/19 08:18 01/07/19 12:22 01/07/19 17:51 01/07/19 21:39 Glucose (Fingerstick) 81 mg/dL (70-99) 152 mg/dL (70-99) 171 mg/dL (70-99) Activated Clotting Time 253 sec (92-181) Test 01/08/19 03:00 01/08/19 08:16 White Blood Count 8.5 x10^3/uL (4.0-11.0) Red Blood Count 2.88 x10^6/uL (4.30-5.70) Hemoglobin 8.6 g/dL (13.0-17.5) Hematocrit 26.2 % (39.0-53.0) Mean Corpuscular Volume 91 fL (79-100) Mean Corpuscular Hemoglobin 30 pg (25-35) Mean Corpuscular Hemoglobin Concent 33 g/dL (31-37) Red Cell Distribution Width 13.9 % (11.5-14.5) Platelet Count 148 x10^3/uL (140-400) Neutrophils (%) (Auto) 81 % (31-73) Lymphocytes (%) (Auto) 8 % (24-48) Monocytes (%) (Auto) 7 % (0-9) Eosinophils (%) (Auto) 3 % (0-3) Basophils (%) (Auto) 1 % (0-3) Neutrophils # (Auto) 6.9 x10^3uL (1.8-7.7) Lymphocytes # (Auto) 0.7 x10^3/uL (1.0-4.8) Monocytes # (Auto) 0.6 x10^3/uL (0.0-1.1) Eosinophils # (Auto) 0.2 x10^3/uL (0.0-0.7) Basophils # (Auto) 0.1 x10^3/uL (0.0-0.2) Sodium Level 140 mmol/L (136-145) Potassium Level 4.3 mmol/L (3.5-5.1) Chloride Level 104 mmol/L (98-107) Carbon Dioxide Level 28 mmol/L (21-32) Anion Gap 8 (6-14) Blood Urea Nitrogen 19 mg/dL (8-26) Creatinine 1.7 mg/dL (0.7-1.3) Estimated GFR (Cockcroft-Gault) 39.8 BUN/Creatinine Ratio 11 (6-20) Glucose Level 194 mg/dL (70-99) Calcium Level 8.4 mg/dL (8.5-10.1) Total Bilirubin 0.7 mg/dL (0.2-1.0) Aspartate Amino Transf (AST/SGOT) 24 U/L (15-37) Alanine Aminotransferase (ALT/SGPT) 18 U/L (16-63) Alkaline Phosphatase 70 U/L (46-116) Total Protein 6.2 g/dL (6.4-8.2) Albumin 1.9 g/dL (3.4-5.0) Albumin/Globulin Ratio 0.4 (1.0-1.7) Glucose (Fingerstick) 164 mg/dL (70-99) Laboratory Tests Test 01/07/19 12:22 01/07/19 17:51 01/07/19 21:39 01/08/19 03:00 Activated Clotting Time 253 sec (92-181) Glucose (Fingerstick) 152 mg/dL (70-99) 171 mg/dL (70-99) White Blood Count 8.5 x10^3/uL (4.0-11.0) Red Blood Count 2.88 x10^6/uL (4.30-5.70) Hemoglobin 8.6 g/dL (13.0-17.5) Hematocrit 26.2 % (39.0-53.0) Mean Corpuscular Volume 91 fL (79-100) Mean Corpuscular Hemoglobin 30 pg (25-35) Mean Corpuscular Hemoglobin Concent 33 g/dL (31-37) Red Cell Distribution Width 13.9 % (11.5-14.5) Platelet Count 148 x10^3/uL (140-400) Neutrophils (%) (Auto) 81 % (31-73) Lymphocytes (%) (Auto) 8 % (24-48) Monocytes (%) (Auto) 7 % (0-9) Eosinophils (%) (Auto) 3 % (0-3) Basophils (%) (Auto) 1 % (0-3) Neutrophils # (Auto) 6.9 x10^3uL (1.8-7.7) Lymphocytes # (Auto) 0.7 x10^3/uL (1.0-4.8) Monocytes # (Auto) 0.6 x10^3/uL (0.0-1.1) Eosinophils # (Auto) 0.2 x10^3/uL (0.0-0.7) Basophils # (Auto) 0.1 x10^3/uL (0.0-0.2) Sodium Level 140 mmol/L (136-145) Potassium Level 4.3 mmol/L (3.5-5.1) Chloride Level 104 mmol/L (98-107) Carbon Dioxide Level 28 mmol/L (21-32) Anion Gap 8 (6-14) Blood Urea Nitrogen 19 mg/dL (8-26) Creatinine 1.7 mg/dL (0.7-1.3) Estimated GFR (Cockcroft-Gault) 39.8 BUN/Creatinine Ratio 11 (6-20) Glucose Level 194 mg/dL (70-99) Calcium Level 8.4 mg/dL (8.5-10.1) Total Bilirubin 0.7 mg/dL (0.2-1.0) Aspartate Amino Transf (AST/SGOT) 24 U/L (15-37) Alanine Aminotransferase (ALT/SGPT) 18 U/L (16-63) Alkaline Phosphatase 70 U/L (46-116) Total Protein 6.2 g/dL (6.4-8.2) Albumin 1.9 g/dL (3.4-5.0) Albumin/Globulin Ratio 0.4 (1.0-1.7) Test 01/08/19 08:16 Glucose (Fingerstick) 164 mg/dL (70-99) Medications Current Medications Insulin Human Lispro (HumaLOG) 0-9 UNITS TIDWMEALS SQ Last administered on 12/27 18:33; Start 12/27/18 at 17:00; Stop 12/28/18 at 07:59; Status DC Dextrose (Dextrose 50%-Water Syringe) 12.5 gm PRN Q15MIN PRN IV SEE COMMENTS Last administered on 01/06/19at 08:06; Start 12/27/18 at 16:45 Atorvastatin Calcium (Lipitor) 40 mg HS PO Last administered on 01/07/19 20:17 ; Start 12/27/18 at 21:00 Metoprolol Succinate (Toprol Xl) 25 mg DAILY PO Last administered on 01/08/19at 08:49; Start 12/28/18 at 09:00 Niacin (Slo-Niacin) 500 mg HS PO Last administered on 01/07/19 20:18; Start at 21:00 Vitamin D (Vitamin D3) 5,000 unit DAILY PO Last administered on 01/08/19at 08:47 ; Start 12/28/18 at 09:00 Non-Formulary Medication (Dulaglutide (Trulicity)) 1.5 mg WEEKLY SQ ; Start 01/03 at 09:00; Status UNV Glimepiride (Amaryl) 4 mg BIDAC PO Last administered on 01/03/19 18:02; Start 12/27/18 at 18:30; Stop 01/04/19 at 07:48; Status DC Hydrochlorothiazide (Hydrodiuril) 25 mg DAILY PO Last administered on 01/03/19 09:30; Start 12/28/18 at 09:00; Stop 01/04/19 at 07:48; Status DC Insulin Glargine (Lantus) 32 units QHS SQ Last administered on 01/03/19 22:15; Start 12/27/18 at 21:00; Stop 01/04/19 at 16:05; Status DC Levothyroxine Sodium (Synthroid) 50 mcg DAILY06 PO Last administered on 05:56; Start 12/28/18 at 06:00 Insulin Human Lispro (HumaLOG) 0-9 UNITS TIDACHC SQ Last administered on at 13:01; Start 12/28/18 at 11:30 Labetalol HCl (Normodyne Iv Push) 10 mg PRN Q2HR PRN IVP HYPERTENSION, SEE COMMENTS; Start 12/28/18 at 08:00 Acetaminophen (Tylenol) 500 mg PRN Q6HRS PRN PO MILD PAIN / TEMP; Start at 08:00 Acetaminophen/ Codeine Phosphate (Tylenol #3) 1 tab PRN Q6HRS PRN PO MODERATE TO SEVERE PAIN Last administered on 01/02/19 02:15; Start 12/28/18 at 08:00 Ondansetron HCl (Zofran) 4 mg PRN Q6HRS PRN IV NAUSEA/VOMITING; Start 12/28/18 at 08:00 Ondansetron HCl (Zofran Odt) 4 mg PRN Q6HRS PRN PO NAUSEA/VOMITING; Start 12/28 at 08:00 Sodium Chloride 1,000 ml @ 75 mls/hr 1X ONCE IV Last administered on at 15:23; Start 12/28/18 at 14:30; Stop 12/29/18 at 03:49; Status DC Sodium Chloride 500 ml @ 250 mls/hr 1X ONCE IV ; Start 12/29/18 at 11:00; Stop 12/29/18 at 12:51; Status DC Influenza Virus Vaccine (Afluria Trivalent [id number] Syringe) 0.5 ml ONCE ONCE VAX IM Last administered on 01/06/19 17:59; Start 12/29/18 at 10:00; Stop 12/29 at 10:01; Status DC Piperacillin Sod/ Tazobactam Sod (Zosyn Per Pharmacy) 1 each PRN DAILY PRN MC SEE COMMENTS; Start 12/29/18 at 11:45 Aspirin (Ecotrin) 81 mg DAILYWBKFT PO Last administered on 01/08/19 08:46; Start 12/29/18 at 12:00 Piperacillin Sod/ Tazobactam Sod 3.375 gm/Sodium Chloride 50 ml @ 100 mls/hr Q6HRS IV Last administered on 01/08/19 05:54; Start 12/29/18 at 12:00 Sodium Chloride 1,000 ml @ 75 mls/hr 1X ONCE IV Last administered on at 01:12; Start 12/30/18 at 00:00; Stop 12/30/18 at 13:19; Status DC Sodium Chloride 500 ml @ 250 mls/hr 1X ONCE IV Last administered on at 08:13; Start 12/30/18 at 09:30; Stop 12/30/18 at 11:29; Status DC Lactobacillus Rhamnosus (Culturelle) 1 cap BID PO Last administered on 08:47; Start 12/29/18 at 21:00 Multivitamins (Thera M Plus) 1 tab DAILY PO Last administered on 01/08/19 08:47 ; Start 12/30/18 at 09:00 Linezolid/Dextrose 300 ml @ 300 mls/hr Q12HR IV Last administered on 01/08/19 08:49; Start 12/29/18 at 15:00 Midazolam HCl (Versed) 5 mg STK-MED ONCE .ROUTE ; Start 12/30/18 at 08:07; Stop 12/30/18 at 08:08; Status DC Fentanyl Citrate (Fentanyl 2ml Vial) 100 mcg STK-MED ONCE .ROUTE ; Start at 08:07; Stop 12/30/18 at 08:08; Status DC Heparin Sodium (Porcine) (Heparin Sodium) 10,000 unit STK-MED ONCE .ROUTE ; Start 12/30/18 at 08:07; Stop 12/30/18 at 08:08; Status DC Iodixanol (Visipaque 320) 100 ml STK-MED ONCE .ROUTE ; Start 12/30/18 at 08:07; Stop 12/30/18 at 08:08; Status DC Lidocaine HCl (Lidocaine 1% 20ml Vial) 20 ml STK-MED ONCE .ROUTE ; Start at 08:07; Stop 12/30/18 at 08:08; Status DC Heparin Sodium/ Sodium Chloride 1,500 ml @ As Directed STK-MED ONCE .ROUTE ; Start 12/30/18 at 08:07; Stop 12/30/18 at 08:08; Status DC Heparin Sodium/ Sodium Chloride (HEPARIN for ARTERIAL LINE FLUSH) 1,000 unit 1X ONCE IART Last administered on 12/30/18at 10:53; Start 12/30/18 at 09:15; Stop 12/30/18 at 09:16; Status DC Midazolam HCl (Versed) 5 mg 1X ONCE IV Last administered on 12/30/18at 11:01; Start 12/30/18 at 09:15; Stop 12/30/18 at 09:16; Status DC Fentanyl Citrate (Fentanyl 2ml Vial) 100 mcg 1X ONCE IV Last administered on at 10:55; Start 12/30/18 at 09:15; Stop 12/30/18 at 09:16; Status DC Iodixanol (Visipaque 320) 100 ml 1X ONCE IART Last administered on 12/30/18at 11:01; Start 12/30/18 at 09:15; Stop 12/30/18 at 09:16; Status DC Lidocaine HCl (Lidocaine 1% 20ml Vial) 20 ml 1X ONCE INJ Last administered on 12/30/18at 11:01; Start 12/30/18 at 09:15; Stop 12/30/18 at 09:16; Status DC Iodixanol (Visipaque 320) 100 ml STK-MED ONCE .ROUTE ; Start 12/30/18 at 09:42; Stop 12/30/18 at 09:43; Status DC Heparin Sodium (Porcine) (Heparin Sodium) 6,000 unit 1X ONCE IV Last administered on 12/30/18at 11:00; Start 12/30/18 at 09:16; Stop 12/30/18 at 10:06 ; Status DC Lidocaine HCl (Lidocaine 1% 20ml Vial) 20 ml STK-MED ONCE .ROUTE ; Start at 10:06; Stop 12/30/18 at 10:07; Status DC Nitroglycerin (Nitroglycerin) 200 mcg 1X ONCE IART Last administered on at 11:01; Start 12/30/18 at 10:15; Stop 12/30/18 at 10:16; Status DC Protamine Sulfate (Protamine) 50 mg STK-MED ONCE IV ; Start 12/30/18 at 10:39; Stop 12/30/18 at 10:40; Status DC Protamine Sulfate (Protamine) 30 mg 1X ONCE IV Last administered on 12/30/18at 10:48; Start 12/30/18 at 10:48; Stop 12/30/18 at 10:58; Status DC Morphine Sulfate (Morphine Sulfate) 1 mg PRN Q10MIN PRN IV SEVERE PAIN; Start 12/31/18 at 07:00; Stop 01/01/19 at 06:59; Status DC Ringer's Solution 1,000 ml @ 30 mls/hr Q24H IV ; Start 12/31/18 at 07:00; Stop 12/31/18 at 18:59; Status DC Lidocaine HCl (Xylocaine-Mpf 1% 2ml Vial) 2 ml PRN 1X PRN ID PRIOR TO IV START ; Start 12/31/18 at 07:00; Stop 01/01/19 at 06:59; Status DC Hydromorphone HCl (Dilaudid) 0.5 mg PRN Q10MIN PRN IV SEV PAIN, Second choice; Start 12/31/18 at 07:00; Stop 01/01/19 at 06:59; Status DC Prochlorperazine Edisylate (Compazine) 5 mg PACU PRN PRN IV NAUSEA, MRX1 Last administered on 12/31/18at 09:31; Start 12/31/18 at 07:00; Stop 01/01/19 at 06:59 ; Status DC Lidocaine HCl (Xylocaine 1% Pf 30ml Vial) 30 ml STK-MED ONCE .ROUTE Last administered on 12/31/18at 07:18; Start 12/31/18 at 07:02; Stop 12/31/18 at 07:03 ; Status DC Lidocaine HCl (Xylocaine 1% Pf 30ml Vial) 30 ml STK-MED ONCE .ROUTE ; Start at 07:02; Stop 12/31/18 at 07:03; Status DC Bupivacaine HCl (Sensorcaine Mpf 0.5%) 30 ml STK-MED ONCE .ROUTE Last administered on 12/31/18at 07:18; Start 12/31/18 at 07:02; Stop 12/31/18 at 07:03 ; Status DC Ondansetron HCl (Zofran) 4 mg STK-MED ONCE .ROUTE ; Start 12/31/18 at 07:05; Stop 12/31/18 at 07:06; Status DC Lidocaine HCl (Lidocaine Pf 2% Vial) 5 ml STK-MED ONCE .ROUTE ; Start 12/31/18 at 07:05; Stop 12/31/18 at 07:06; Status DC Propofol 20 ml @ As Directed STK-MED ONCE IV ; Start 12/31/18 at 07:05; Stop at 07:06; Status DC Famotidine (Pepcid Vial) 20 mg STK-MED ONCE .ROUTE ; Start 12/31/18 at 07:05; Stop 12/31/18 at 07:06; Status DC Dexamethasone Sodium Phosphate (Decadron) 20 mg STK-MED ONCE .ROUTE ; Start at 07:05; Stop 12/31/18 at 07:06; Status Cancel Fentanyl Citrate (Fentanyl 2ml Vial) 100 mcg STK-MED ONCE .ROUTE ; Start at 07:06; Stop 12/31/18 at 07:07; Status DC Desflurane (Suprane) 60 ml STK-MED ONCE IH ; Start 12/31/18 at 08:45; Stop 12/31 at 08:46; Status DC Prochlorperazine Edisylate (Compazine) 10 mg STK-MED ONCE .ROUTE ; Start at 08:57; Stop 12/31/18 at 08:58; Status DC Ondansetron HCl (Zofran) 4 mg STK-MED ONCE .ROUTE ; Start 12/31/18 at 09:39; Stop 12/31/18 at 09:40; Status DC Sodium Chloride 1,000 ml @ 100 mls/hr Q10H IV ; Start 01/03/19 at 12:00; Stop at 12:00; Status DC Lorazepam (Ativan) 0.5 mg PRN Q6HRS PRN PO ANXIETY / AGITATION Last administered on 01/07/19at 20:18; Start 01/01/19 at 23:00 Clopidogrel Bisulfate (Plavix) 75 mg DAILYWBKFT PO Last administered on at 08:47; Start 01/02/19 at 14:00 Sodium Chloride 1,000 ml @ 75 mls/hr [id number] IV Last administered on 01/04/19at 18:16; Start 01/03/19 at 12:00; Stop 01/05/19 at 18:17; Status DC Potassium Chloride (Klor-Con) 20 meq 1X ONCE PO ; Start 01/04/19 at 08:30; Stop 01/04/19 at 08:31; Status DC Lidocaine HCl (Lidocaine 1% 20ml Vial) 20 ml STK-MED ONCE .ROUTE ; Start at 14:40; Stop 01/04/19 at 14:41; Status DC Heparin Sodium/ Sodium Chloride 500 ml @ As Directed STK-MED ONCE .ROUTE ; Start 01/04/19 at 14:40; Stop 01/04/19 at 14:41; Status DC Midazolam HCl (Versed) 5 mg STK-MED ONCE .ROUTE ; Start 01/04/19 at 14:44; Stop 01/04/19 at 14:45; Status DC Fentanyl Citrate (Fentanyl 2ml Vial) 100 mcg STK-MED ONCE .ROUTE ; Start at 14:45; Stop 01/04/19 at 14:46; Status DC Heparin Sodium (Porcine) (Heparin Sodium) 10,000 unit STK-MED ONCE .ROUTE ; Start 01/04/19 at 14:45; Stop 01/04/19 at 14:46; Status DC Heparin Sodium/ Sodium Chloride (HEPARIN for ARTERIAL LINE FLUSH) 1,000 unit 1X ONCE IART Last administered on 01/04/19at 15:30; Start 01/04/19 at 15:30; Stop 01/04/19 at 15:38; Status DC Midazolam HCl (Versed) 5 mg 1X ONCE IV Last administered on 3/4/19at 15:30; Start 01/04/19 at 15:30; Stop 01/04/19 at 15:38; Status DC Fentanyl Citrate (Fentanyl 2ml Vial) 100 mcg 1X ONCE IV Last administered on 15:30; Start 01/04/19 at 15:30; Stop 01/04/19 at 15:38; Status DC Iodixanol (Visipaque 320) 100 ml 1X ONCE IART ; Start 01/04/19 at 15:30; Stop at 15:56; Status DC Heparin Sodium (Porcine) (Heparin Sodium) 5,000 unit 1X ONCE IV Last administered on 01/04/19 15:30; Start 01/04/19 at 15:30; Stop 01/04/19 at 15:39; Status DC Lidocaine HCl (Lidocaine 1% 20ml Vial) 20 ml 1X ONCE INJ Last administered on 01/04/19 15:30; Start 01/04/19 at 15:30; Stop 01/04/19 at 15:39; Status DC Insulin Glargine (Lantus) 18 units QHS SQ Last administered on 01/07/19 22:16; Start 01/04/19 at 21:00 Iodixanol (Visipaque 320) 100 ml 1X ONCE IART Last administered on 01/04/19 16 :30; Start 01/04/19 at 16:30; Stop 01/04/19 at 16:31; Status DC Info (CONTRAST GIVEN -- Rx MONITORING) 1 each PRN DAILY PRN MC SEE COMMENTS; Start 01/04/19 at 16:30; Stop 01/06/19 at 16:29; Status DC Albuterol/ Ipratropium (Duoneb) 3 ml RTQID NEB ; Start 01/05/19 at 08:00; Stop at 08:00; Status DC Amlodipine Besylate (Norvasc) 5 mg DAILY PO Last administered on 01/08/19 08:48 ; Start 01/05/19 at 10:30 Sodium Chloride 1,000 ml @ 75 mls/hr [id number] IV Last administered on 01/06/19 18:01; Start 01/06/19 at 18:00 Potassium Chloride (Klor-Con) 40 meq 1X ONCE PO Last administered on 01/06/19at 12:50; Start 01/06/19 at 11:30; Stop 01/06/19 at 11:37; Status DC Tamsulosin HCl (Flomax) 0.4 mg QHS PO Last administered on 01/07/19at 20:18; Start 01/06/19 at 21:00 Iodixanol (Visipaque 320) 100 ml STK-MED ONCE .ROUTE ; Start 01/07/19 at 07:40; Stop 01/07/19 at 07:41; Status DC Lidocaine HCl (Lidocaine 1% 20ml Vial) 20 ml STK-MED ONCE .ROUTE ; Start at 07:40; Stop 01/07/19 at 07:41; Status DC Heparin Sodium/ Sodium Chloride 1,500 ml @ As Directed STK-MED ONCE .ROUTE ; Start 01/07/19 at 07:40; Stop 01/07/19 at 07:41; Status DC Midazolam HCl (Versed) 2 mg STK-MED ONCE .ROUTE ; Start 01/07/19 at 09:35; Stop 01/07/19 at 09:36; Status DC Fentanyl Citrate (Fentanyl 2ml Vial) 100 mcg STK-MED ONCE .ROUTE ; Start at 09:35; Stop 01/07/19 at 09:36; Status DC Verapamil HCl (Verapamil) 5 mg STK-MED ONCE .ROUTE ; Start 01/07/19 at 09:58; Stop 01/07/19 at 09:59; Status DC Heparin Sodium (Porcine) (Heparin Sodium) 10,000 unit STK-MED ONCE .ROUTE ; Start 01/07/19 at 09:58; Stop 01/07/19 at 09:59; Status DC Nitroglycerin (Nitroglycerin) 200 mcg STK-MED ONCE .ROUTE ; Start 01/07/19 at 09: 58; Stop 01/07/19 at 09:59; Status DC Nitroglycerin (Nitroglycerin) 200 mcg 1X ONCE IART Last administered on at 12:44; Start 01/07/19 at 11:30; Stop 01/07/19 at 11:32; Status DC Verapamil HCl (Verapamil) 2.5 mg 1X ONCE IART ; Start 01/07/19 at 11:30; Stop at 12:34; Status DC Heparin Sodium (Porcine) (Heparin Sodium) 2,500 unit 1X ONCE IART ; Start at 11:30; Stop 01/07/19 at 12:34; Status DC Heparin Sodium/ Sodium Chloride (HEPARIN for ARTERIAL LINE FLUSH) 1,000 unit 1X ONCE IART Last administered on 01/07/19at 12:43; Start 01/07/19 at 11:30; Stop 01/07/19 at 11:32; Status DC Heparin Sodium/ Sodium Chloride (HEPARIN for ARTERIAL LINE FLUSH) 1,000 unit 1X ONCE IART Last administered on 01/07/19 12:44; Start 01/07/19 at 11:30; Stop 01/07/19 at 11:32; Status DC Midazolam HCl (Versed) 2 mg 1X ONCE IV Last administered on 01/07/19 12:45; Start 01/07/19 at 11:30; Stop 01/07/19 at 11:32; Status DC Fentanyl Citrate (Fentanyl 2ml Vial) 100 mcg 1X ONCE IV Last administered on 12:45; Start 01/07/19 at 11:30; Stop 01/07/19 at 11:32; Status DC Iodixanol (Visipaque 320) 100 ml 1X ONCE IART Last administered on 01/07/19 12 :46; Start 01/07/19 at 11:30; Stop 01/07/19 at 11:32; Status DC Heparin Sodium (Porcine) (Heparin Sodium) 6,000 unit 1X ONCE IV Last administered on 01/07/19 12:46; Start 01/07/19 at 11:30; Stop 01/07/19 at 11:32; Status DC Lidocaine HCl (Lidocaine 1% 20ml Vial) 20 ml 1X ONCE INJ Last administered on 01/07/19 12:44; Start 01/07/19 at 11:30; Stop 01/07/19 at 11:32; Status DC Midazolam HCl (Versed) 2 mg STK-MED ONCE .ROUTE ; Start 01/07/19 at 12:00; Stop 01/07/19 at 12:01; Status DC Fentanyl Citrate (Fentanyl 2ml Vial) 100 mcg STK-MED ONCE .ROUTE ; Start at 12:01; Stop 01/07/19 at 12:02; Status DC Nitroglycerin (Nitroglycerin) 200 mcg STK-MED ONCE .ROUTE ; Start 01/07/19 at 12: 26; Stop 01/07/19 at 12:27; Status DC Protamine Sulfate (Protamine) 50 mg STK-MED ONCE IV ; Start 01/07/19 at 12:28; Stop 01/07/19 at 12:29; Status DC Protamine Sulfate (Protamine) 30 mg 1X ONCE IV Last administered on 01/07/19at 12:45; Start 01/07/19 at 12:45; Stop 01/07/19 at 12:46; Status DC Sodium Chloride 1,000 ml @ 150 mls/hr [id number] IV Last administered on 01/08/19at 05:54; Start 01/07/19 at 13:15; Stop 01/08/19 at 09:00; Status DC Active Scripts Active Reported Niaspan (Niacin) 500 Mg Tab.er.24h 500 Mg PO HS Hydrochlorothiazide Tablet (Hydrochlorothiazide) 12.5 Mg Tablet 25 Mg PO DAILY Metoprolol Succinate ( Xl ) (Metoprolol Succinate) 25 Mg Tab.er.24h 25 Mg PO DAILY Lipitor (Atorvastatin Calcium) 40 Mg Tablet 40 Mg PO HS Trulicity (Dulaglutide) 1.5 Mg/0.5 Ml Pen.injctr 1.5 Mg SQ WEEKLY Toujeo Solostar (Insulin Glargine,Hum.rec.anlog) 300 Unit/1 Ml Insuln.pen 40 Unit SQ HS Aspirin 81 Mg Tab.chew 81 Mg PO BID Glimepiride 4 Mg Tablet 4 Mg PO BIDAC Synthroid (Levothyroxine Sodium) 50 Mcg Tablet 50 Mcg PO DAILYAC Vitamin D3 (Cholecalciferol (Vitamin D3)) 5,000 Unit Tablet 5,000 Unit PO DAILY Vitals/I & O Vital Sign - Last 24 Hours 01/07/19 01/07/19 01/07/19 01/07/19 12:45 13:04 13:15 13:30 Pulse 80 80 80 Resp 11 15 15 15 Pulse Ox 100 100 100 100 O2 Delivery Nasal Cannula Nasal Cannula Nasal Cannula Nasal Cannula O2 Flow Rate 4.0 2.0 2.0 2.0 01/07/19 01/07/19 01/07/19 01/07/19 13:45 13:45 14:00 14:00 Pulse 80 80 Resp 15 15 B/P (MAP) 140/67 (91) 138/66 (90) Pulse Ox 100 100 O2 Delivery Nasal Cannula Room Air Nasal Cannula Room Air O2 Flow Rate 2.0 2.0 01/07/19 01/07/19 01/07/19 01/07/19 14:15 14:30 14:30 15:00 Temp 97.5 97.5 Pulse 80 80 Resp 15 18 B/P (MAP) 158/71 (100) 147/71 (96) 141/64 (89) Pulse Ox 100 96 O2 Delivery Room Air Nasal Cannula Room Air Room Air O2 Flow Rate 2.0 01/07/19 01/07/19 01/07/19 01/07/19 15:00 15:00 15:30 15:30 Pulse 80 80 Resp 15 15 B/P (MAP) 125/60 (81) 115/58 (77) Pulse Ox 100 100 O2 Delivery Room Air Nasal Cannula Nasal Cannula Room Air O2 Flow Rate 2.0 2.0 01/07/19 01/07/19 01/07/19 01/07/19 16:00 16:00 16:30 17:00 Pulse 88 80 86 80 Resp 15 15 B/P (MAP) 141/64 (89) 151/67 (95) Pulse Ox 100 100 O2 Delivery Room Air Nasal Cannula Room Air Nasal Cannula O2 Flow Rate 2.0 2.0 01/07/19 01/07/19 01/07/19 01/07/19 17:30 18:00 18:30 18:49 Pulse 96 80 84 97 Resp 15 B/P (MAP) 170/77 (108) 155/68 (97) 155/68 Pulse Ox 100 O2 Delivery Room Air Nasal Cannula Room Air O2 Flow Rate 2.0 01/07/19 01/07/19 01/07/19 01/08/19 19:38 20:00 22:07 02:46 Temp 97.9 98.1 98.2 97.9 98.1 98.2 Pulse 93 88 98 Resp 18 20 17 B/P (MAP) 147/65 (92) 149/63 (91) 148/69 (95) Pulse Ox 97 96 96 O2 Delivery Room Air Room Air Room Air Room Air O2 Flow Rate 2.0 01/08/19 01/08/19 01/08/19 07:00 08:48 08:49 Temp 98.1 98.1 Pulse 89 80 84 Resp 16 B/P (MAP) 139/63 (88) 139/63 139/63 Pulse Ox 93 O2 Delivery Room Air Intake and Output 01/07/19 01/07/19 01/08/19 14:59 22:59 06:59 Intake Total 500 ml 800 ml Output Total 200 ml Balance 500 ml 600 ml PATIENCE ACUÑA III DO Jan 08, 2019 11:07
--- NOTE | 2019-01-08 11:34 | NUR ---
SS following up with discharge planning. Discharge orders received for [facility]. SS phoned and faxed discharge orders to [facility]. Pt is accepted pending insurance [facility].
--- NOTE | 2019-01-08 11:39 | PDOC ---
Provider Note Provider Note Vascular S: Patient without complaints. Awaiting placement to rehab. O: AF VSS awake and alert Dressing intact right TMA and left first toe. Bilateral groin dressings dry and intact. Doppler DP and PT Bilaterally. Cr. 1.7 A/P: s/p right leg arterial angioplasty and closed TMA - dry dressing to the right foot daily, dressing care to left toe ulcer - left SFA and peroneal artery angioplasty and anterior tibial angioplasty - aspirin and plavix - antibiotics per ID -Front off loading shoe right and post op shoe left - Follow up with Dr. Yung as scheduled. CHRISTIE ARECHIGA APRN Jan 08, 2019 11:39
--- NOTE | 2019-01-08 12:34 | DS ---
DATE OF DISCHARGE: 01/08/2019 ADMISSION DIAGNOSES: Severe peripheral vascular disease with dry gangrene and ischemic toes and osteomyelitis. DISCHARGE DIAGNOSES: 1. Postoperative day 1 angioplasty of the left anterior tibial artery and left peroneal artery. 2. Postoperative day 3 of the left leg runoff with carbon dioxide angiography and left superficial femoral artery angioplasty and left peroneal artery angioplasty. 3. Postoperative day 8 right transmetatarsal amputation with primary closure and debridement of a left great toe ulcer. 4. Postoperative day 9 right peroneal artery angioplasty and placement of closure device graft. 5. History of diabetes, previous stroke, vasculopathy and obesity. CONSULTS: Dr. Ahsan Yung, Dr. Vigil and Dr. Baljinder Hernandez. HOSPITAL COURSE: The patient is a pleasant middle-aged male who basically presented with dry gangrene of the toes on the left. He was admitted. The above consults were obtained. He had some renal failure. We did IV antibiotics and wound care for a few days, but his wounds were so severe he had to go for multiple procedures, please see above. Yesterday, he went for his final procedure. It was a reverse runoff with angioplasty. Overall, he looks great this morning. We plan to discharge to skilled. DISPOSITION: Skilled. ACTIVITY: As tolerated. DIET: Renal. MEDICATIONS: Please see the MRAD. TOTAL TIME: 39 minutes. PATIENCE ACUÑA DO DR: AALIYAH/marcial JOB#: [id number] / [id number]
--- NOTE | 2019-01-08 13:02 | PDOC ---
SUBJECTIVE ROS No complaints OBJECTIVE Vital Signs Vital Signs Date Time Temp Pulse Resp B/P (MAP) Pulse Ox O2 Delivery O2 Flow Rate FiO2 01/08/19 08:49 84 139/63 01/08/19 07:00 98.1 16 93 Room Air 98.1 01/07/19 20:00 2.0 I & 0 Intake and Output 01/08/19 06:59 Intake Total 1300 ml Output Total 200 ml Balance 1100 ml Intake Oral 1300 ml Output Urine Total 200 ml # Voids 4 # Bowel Movements 1 PHYSICAL EXAM Physical Exam GENERAL: NAD HEENT: Oral cavity clear NECK: Supple LUNGS: Clear. HEART: S1, S2 ABDOMEN: Obese, soft, NT, EXTREMITIES: 2+ edema BLE. Right foot bandaged NEUROLOGIC: Alert, responds appropriately - No Alvares Skin No RASH DIAGNOSIS/ASSESSMENT Assessment & Plan CKD 3- Renal function at baseline Follows with us, last seen by me in Sep 2018 Baseline Cr 1.8-2 with egFR cw stage 3 Hypokalemia- normal Replace as needed Anemia- Noted drop in Hgb Defer to primary Right foot cellulitis- On Abx Right foot all toes gangrene. s/p right leg angioplasty and TMA w/ primary closure on 12/31. Left big toe ulcer s/p debridement to level of bone and tendon on 12/31 PAD Jan 04 2019 S/P LEFT SFA angioplasty,S/P LEFT TIBIAL angioplasty Diabetes- as per Primary Coronary artery disease. Diarrhea C diff neg COMMENT/RELEVANT DATA Meds Current Medications Medications (Trade) Dose Ordered Sig/Zeeshan Start Time Stop Time Status Last Admin Dose Admin Acetaminophen (Tylenol) 500 mg PRN Q6HRS PRN 12/28/18 08:00 Acetaminophen/ Codeine Phosphate (Tylenol #3) 1 tab PRN Q6HRS PRN 12/28/18 08:00 01/02/19 02:15 1 TAB Albuterol/ Ipratropium (Duoneb) 3 ml RTQID 01/05/19 08:00 01/05/19 08:00 DC Amlodipine Besylate (Norvasc) 5 mg DAILY 01/05/19 10:30 01/08/19 08:48 5 MG Aspirin (Ecotrin) 81 mg DAILYWBKFT 12/29/18 12:00 01/08/19 08:46 81 MG Atorvastatin Calcium (Lipitor) 40 mg HS 12/27/18 21:00 01/07/19 20:17 40 MG Bupivacaine HCl (Sensorcaine Mpf 0.5%) 30 ml STK-MED ONCE 12/31/18 07:02 12/31/18 07:03 DC 12/31/18 07:18 4 ML Clopidogrel Bisulfate (Plavix) 75 mg DAILYWBKFT 01/02/19 14:00 01/08/19 08:47 75 MG Desflurane (Suprane) 60 ml STK-MED ONCE 12/31/18 08:45 12/31/18 08:46 DC Dexamethasone Sodium Phosphate (Decadron) 20 mg STK-MED ONCE 12/31/18 07:05 12/31/18 07:06 Cancel Dextrose (Dextrose 50%-Water Syringe) 12.5 gm PRN Q15MIN PRN 12/27/18 16:45 01/06/19 08:06 12.5 GM Famotidine (Pepcid Vial) 20 mg STK-MED ONCE 12/31/18 07:05 12/31/18 07:06 DC Fentanyl Citrate (Fentanyl 2ml Vial) 100 mcg STK-MED ONCE 01/07/19 12:01 01/07/19 12:02 DC Glimepiride (Amaryl) 4 mg BIDAC 12/27/18 18:30 01/04/19 07:48 DC 01/03/19 18:02 4 MG Heparin Sodium (Porcine) (Heparin Sodium) 6,000 unit 1X ONCE 01/07/19 11:30 01/07/19 11:32 DC 01/07/19 12:46 8,000 UNIT Heparin Sodium/ Sodium Chloride (HEPARIN for ARTERIAL LINE FLUSH) 1,000 unit 1X ONCE 01/07/19 11:30 01/07/19 11:32 DC 01/07/19 12:44 1,000 UNIT Hydrochlorothiazide (Hydrodiuril) 25 mg DAILY 12/28/18 09:00 01/04/19 07:48 DC 01/03/19 09:30 25 MG Hydromorphone HCl (Dilaudid) 0.5 mg PRN Q10MIN PRN 12/31/18 07:00 01/01/19 06:59 DC Influenza Virus Vaccine (Afluria Trivalent [id number] Syringe) 0.5 ml ONCE ONCE 12/29/18 10:00 12/29/18 10:01 DC 01/06/19 17:59 0.5 ML Info (CONTRAST GIVEN -- Rx MONITORING) 1 each PRN DAILY PRN 01/04/19 16:30 01/06/19 16:29 DC Insulin Glargine (Lantus) 18 units QHS 01/04/19 21:00 01/07/19 22:16 18 UNITS Insulin Human Lispro (HumaLOG) 0-9 UNITS TIDACHC 12/28/18 11:30 01/06/19 13:01 4 UNITS Iodixanol (Visipaque 320) 100 ml 1X ONCE 01/07/19 11:30 01/07/19 11:32 DC 01/07/19 12:46 45 ML Labetalol HCl (Normodyne Iv Push) 10 mg PRN Q2HR PRN 12/28/18 08:00 Lactobacillus Rhamnosus (Culturelle) 1 cap BID 12/29/18 21:00 01/08/19 08:47 1 CAP Levothyroxine Sodium (Synthroid) 50 mcg DAILY06 12/28/18 06:00 01/08/19 05:56 50 MCG Lidocaine HCl (Lidocaine 1% 20ml Vial) 20 ml 1X ONCE 01/07/19 11:30 01/07/19 11:32 DC 01/07/19 12:44 9 ML Lidocaine HCl (Lidocaine Pf 2% Vial) 5 ml STK-MED ONCE 12/31/18 07:05 12/31/18 07:06 DC Lidocaine HCl (Xylocaine 1% Pf 30ml Vial) 30 ml STK-MED ONCE 12/31/18 07:02 12/31/18 07:03 DC Lidocaine HCl (Xylocaine-Mpf 1% 2ml Vial) 2 ml PRN 1X PRN 12/31/18 07:00 01/01/19 06:59 DC Linezolid/Dextrose 300 ml @ 300 mls/hr Q12HR 12/29/18 15:00 01/08/19 08:49 300 MLS/HR Lorazepam (Ativan) 0.5 mg PRN Q6HRS PRN 01/01/19 23:00 01/07/19 20:18 0.5 MG Metoprolol Succinate (Toprol Xl) 25 mg DAILY 12/28/18 09:00 01/08/19 08:49 25 MG Midazolam HCl (Versed) 2 mg STK-MED ONCE 01/07/19 12:00 01/07/19 12:01 DC Morphine Sulfate (Morphine Sulfate) 1 mg PRN Q10MIN PRN 12/31/18 07:00 01/01/19 06:59 DC Multivitamins (Thera M Plus) 1 tab DAILY 12/30/18 09:00 01/08/19 08:47 1 TAB Niacin (Slo-Niacin) 500 mg HS 12/27/18 21:00 01/07/19 20:18 500 MG Nitroglycerin (Nitroglycerin) 200 mcg STK-MED ONCE 01/07/19 12:26 01/07/19 12:27 DC Non-Formulary Medication (Dulaglutide (Trulicity)) 1.5 mg WEEKLY 01/03/19 09:00 UNV Ondansetron HCl (Zofran Odt) 4 mg PRN Q6HRS PRN 12/28/18 08:00 Ondansetron HCl (Zofran) 4 mg STK-MED ONCE 12/31/18 09:39 12/31/18 09:40 DC Piperacillin Sod/ Tazobactam Sod (Zosyn Per Pharmacy) 1 each PRN DAILY PRN 12/29/18 11:45 Piperacillin Sod/ Tazobactam Sod 3.375 gm/Sodium Chloride 50 ml @ 100 mls/hr Q6HRS 12/29/18 12:00 01/08/19 05:54 100 MLS/HR Potassium Chloride (Klor-Con) 40 meq 1X ONCE 01/06/19 11:30 01/06/19 11:37 DC 01/06/19 12:50 40 MEQ Prochlorperazine Edisylate (Compazine) 10 mg STK-MED ONCE 12/31/18 08:57 12/31/18 08:58 DC Propofol 20 ml @ As Directed STK-MED ONCE 12/31/18 07:05 12/31/18 07:06 DC Protamine Sulfate (Protamine) 30 mg 1X ONCE 01/07/19 12:45 01/07/19 12:46 DC 01/07/19 12:45 30 MG Ringer's Solution 1,000 ml @ 30 mls/hr Q24H 12/31/18 07:00 12/31/18 18:59 DC Sodium Chloride 1,000 ml @ 150 mls/hr Q6H40M 01/07/19 13:15 01/08/19 09:00 DC 01/08/19 05:54 150 MLS/HR Tamsulosin HCl (Flomax) 0.4 mg QHS 01/06/19 21:00 01/07/19 20:18 0.4 MG Verapamil HCl (Verapamil) 2.5 mg 1X ONCE 01/07/19 11:30 01/07/19 12:34 DC Vitamin D (Vitamin D3) 5,000 unit DAILY 12/28/18 09:00 01/08/19 08:47 5,000 UNIT Lab Laboratory Tests Test 01/07/19 17:51 01/07/19 21:39 01/08/19 03:00 01/08/19 08:16 Glucose (Fingerstick) 152 mg/dL (70-99) 171 mg/dL (70-99) 164 mg/dL (70-99) White Blood Count 8.5 x10^3/uL (4.0-11.0) Red Blood Count 2.88 x10^6/uL (4.30-5.70) Hemoglobin 8.6 g/dL (13.0-17.5) Hematocrit 26.2 % (39.0-53.0) Mean Corpuscular Volume 91 fL (79-100) Mean Corpuscular Hemoglobin 30 pg (25-35) Mean Corpuscular Hemoglobin Concent 33 g/dL (31-37) Red Cell Distribution Width 13.9 % (11.5-14.5) Platelet Count 148 x10^3/uL (140-400) Neutrophils (%) (Auto) 81 % (31-73) Lymphocytes (%) (Auto) 8 % (24-48) Monocytes (%) (Auto) 7 % (0-9) Eosinophils (%) (Auto) 3 % (0-3) Basophils (%) (Auto) 1 % (0-3) Neutrophils # (Auto) 6.9 x10^3uL (1.8-7.7) Lymphocytes # (Auto) 0.7 x10^3/uL (1.0-4.8) Monocytes # (Auto) 0.6 x10^3/uL (0.0-1.1) Eosinophils # (Auto) 0.2 x10^3/uL (0.0-0.7) Basophils # (Auto) 0.1 x10^3/uL (0.0-0.2) Sodium Level 140 mmol/L (136-145) Potassium Level 4.3 mmol/L (3.5-5.1) Chloride Level 104 mmol/L (98-107) Carbon Dioxide Level 28 mmol/L (21-32) Anion Gap 8 (6-14) Blood Urea Nitrogen 19 mg/dL (8-26) Creatinine 1.7 mg/dL (0.7-1.3) Estimated GFR (Cockcroft-Gault) 39.8 BUN/Creatinine Ratio 11 (6-20) Glucose Level 194 mg/dL (70-99) Calcium Level 8.4 mg/dL (8.5-10.1) Total Bilirubin 0.7 mg/dL (0.2-1.0) Aspartate Amino Transf (AST/SGOT) 24 U/L (15-37) Alanine Aminotransferase (ALT/SGPT) 18 U/L (16-63) Alkaline Phosphatase 70 U/L (46-116) Total Protein 6.2 g/dL (6.4-8.2) Albumin 1.9 g/dL (3.4-5.0) Albumin/Globulin Ratio 0.4 (1.0-1.7) Test 01/08/19 11:26 Glucose (Fingerstick) 167 mg/dL (70-99) Results All relevant outside records, renal labs, imaging studies, telemetry/EKG's were reviewed. RICHIE GONZALEZ MD Jan 08, 2019 13:02
--- NOTE | 2019-01-08 14:41 | NUR ---
Wound Care Wound care follow up for follow up assessment. Left great toe pictured, measured and redressed. R TMA redressed with Xeroform and Kerlix, recommend to change daily. Left great toe packed with Iodoflex and covered with bandaid, recommend to change every 2-3 days. No other wounds noted on full skin inspection. Pt educated on PU prevention. No other wounds noted on full skin inspection. WC will continue to follow for possible changes.
[2019-01-08 15:00] VITALS: BP_SYST 106; BP_SYST 139; BP_DIAS 53; BP_DIAS 65
[2019-01-08 19:40] VITALS: BP 139/62
[2019-01-08] MEDS: TAMSULOSIN 0.4 MG CAP.ER.24H. PO SCH (21:06)
[2019-01-08] MEDS: ATORVASTATIN CALCIUM 40 MG TABLET. PO SCH (21:06)
[2019-01-08] MEDS: NIACIN ER 500 MG TABLET.ER PO SCH (21:06)
[2019-01-08] MEDS: INSULIN GLARGINE 300 UNITS/3 ML INSULN.PEN. SQ SCH (21:16)
[2019-01-08 23:36] VITALS: BP 141/64
[2019-01-09 03:47] VITALS: BP 134/50
[2019-01-09 03:52] LABS: BASO # 0.1 x10^3/uL (0.0-0.2); BASO % 1 % (0-3); EOS # 0.4 x10^3/uL (0.0-0.7); EOS % 6 % (0-3); HEMATOCRIT 25.3 % (39.0-53.0); HEMOGLOBIN 8.4 g/dL (13.0-17.5); LYMPH # 1.1 x10^3/uL (1.0-4.8); LYMPH % 17 % (24-48); MEAN CORPUSCULAR HEMOGLOBIN 30 pg (25-35); MEAN CORPUSCULAR HGB CONC 33 g/dL (31-37); MEAN CORPUSCULAR VOLUME 90 fL (79-100); MONO # 0.5 x10^3/uL (0.0-1.1); MONO % 8 % (0-9); NEUT # 4.5 x10^3uL (1.8-7.7); NEUT % 68 % (31-73); PLATELET COUNT 126 x10^3/uL (140-400); RED BLOOD COUNT 2.81 x10^6/uL (4.30-5.70); RED CELL DISTRIBUTION WIDTH 13.9 % (11.5-14.5); WHITE BLOOD COUNT 6.6 x10^3/uL (4.0-11.0)
[2019-01-09 04:34] LABS: ALBUMIN 1.9 g/dL (3.4-5.0); ALBUMIN/GLOBULIN RATIO 0.4 (1.0-1.7); CALCIUM 8.6 mg/dL (8.5-10.1); CREATININE 1.7 mg/dL (0.7-1.3); GFR 39.8; POTASSIUM 3.4 mmol/L (3.5-5.1); TOTAL BILIRUBIN 0.7 mg/dL (0.2-1.0); TOTAL PROTEIN 6.4 g/dL (6.4-8.2)
[2019-01-09] MEDS: LEVOTHYROXINE 50 MCG TABLET PO SCH (05:25)
[2019-01-09] MEDS: PIPERACILLIN/TAZOBACTAM 3.375 GM in IV NORMAL SALINE 50ML 50 ML IV SCH ×3 (05:29→19:00)
[2019-01-09] MEDS: INSULIN LISPRO 300 UNITS/3 ML INSULN.PEN. SQ SCH ×4 (07:30→21:00)
[2019-01-09 07:40] VITALS: BP 138/61
--- NOTE | 2019-01-09 09:36 | PDOC ---
SUBJECTIVE ROS No concerns voiced OBJECTIVE Vital Signs Vital Signs Date Time Temp Pulse Resp B/P (MAP) Pulse Ox O2 Delivery O2 Flow Rate FiO2 01/09/19 07:40 97.8 77 12 138/61 (86) 98 Room Air 97.8 01/08/19 20:00 2.0 I & 0 Intake and Output 01/09/19 06:59 Intake Total 660 ml Output Total 260 ml Balance 400 ml Intake Oral 260 ml Other 400 ml Output Urine Total 260 ml # Voids 1 # Bowel Movements 1 PHYSICAL EXAM Physical Exam GENERAL: NAD HEENT: Oral cavity clear NECK: Supple LUNGS: Clear. HEART: S1, S2 ABDOMEN: Obese, soft, NT, EXTREMITIES: 2+ edema BLE. Right foot bandaged NEUROLOGIC: Alert, responds appropriately - No Alvares Skin No RASH DIAGNOSIS/ASSESSMENT Assessment & Plan CKD 3- Renal function at baseline Follows with us, last seen by me in Sep 2018 Baseline Cr 1.8-2 with egFR cw stage 3 Hypokalemia- Replace as needed Anemia- Noted drop in Hgb Defer to primary Right foot cellulitis- On Abx Right foot all toes gangrene. s/p right leg angioplasty and TMA w/ primary closure on 12/31. Left big toe ulcer s/p debridement to level of bone and tendon on 12/31 PAD Jan 04 2019 S/P LEFT SFA angioplasty,S/P LEFT TIBIAL angioplasty Diabetes- as per Primary Coronary artery disease. Diarrhea C diff neg COMMENT/RELEVANT DATA Meds Current Medications Medications (Trade) Dose Ordered Sig/Zeeshan Start Time Stop Time Status Last Admin Dose Admin Acetaminophen (Tylenol) 500 mg PRN Q6HRS PRN 12/28/18 08:00 Acetaminophen/ Codeine Phosphate (Tylenol #3) 1 tab PRN Q6HRS PRN 12/28/18 08:00 01/02/19 02:15 1 TAB Albuterol/ Ipratropium (Duoneb) 3 ml RTQID 01/05/19 08:00 01/05/19 08:00 DC Amlodipine Besylate (Norvasc) 5 mg DAILY 01/05/19 10:30 01/08/19 08:48 5 MG Aspirin (Ecotrin) 81 mg DAILYWBKFT 12/29/18 12:00 01/08/19 08:46 81 MG Atorvastatin Calcium (Lipitor) 40 mg HS 12/27/18 21:00 01/08/19 21:06 40 MG Bupivacaine HCl (Sensorcaine Mpf 0.5%) 30 ml STK-MED ONCE 12/31/18 07:02 12/31/18 07:03 DC 12/31/18 07:18 4 ML Clopidogrel Bisulfate (Plavix) 75 mg DAILYWBKFT 01/02/19 14:00 01/08/19 08:47 75 MG Desflurane (Suprane) 60 ml STK-MED ONCE 12/31/18 08:45 12/31/18 08:46 DC Dexamethasone Sodium Phosphate (Decadron) 20 mg STK-MED ONCE 12/31/18 07:05 12/31/18 07:06 Cancel Dextrose (Dextrose 50%-Water Syringe) 12.5 gm PRN Q15MIN PRN 12/27/18 16:45 01/06/19 08:06 12.5 GM Famotidine (Pepcid Vial) 20 mg STK-MED ONCE 12/31/18 07:05 12/31/18 07:06 DC Fentanyl Citrate (Fentanyl 2ml Vial) 100 mcg STK-MED ONCE 01/07/19 12:01 01/07/19 12:02 DC Glimepiride (Amaryl) 4 mg BIDAC 12/27/18 18:30 01/04/19 07:48 DC 01/03/19 18:02 4 MG Heparin Sodium (Porcine) (Heparin Sodium) 6,000 unit 1X ONCE 01/07/19 11:30 01/07/19 11:32 DC 01/07/19 12:46 8,000 UNIT Heparin Sodium/ Sodium Chloride (HEPARIN for ARTERIAL LINE FLUSH) 1,000 unit 1X ONCE 01/07/19 11:30 01/07/19 11:32 DC 01/07/19 12:44 1,000 UNIT Hydrochlorothiazide (Hydrodiuril) 25 mg DAILY 12/28/18 09:00 01/04/19 07:48 DC 01/03/19 09:30 25 MG Hydromorphone HCl (Dilaudid) 0.5 mg PRN Q10MIN PRN 12/31/18 07:00 01/01/19 06:59 DC Influenza Virus Vaccine (Afluria Trivalent [id number] Syringe) 0.5 ml ONCE ONCE 12/29/18 10:00 12/29/18 10:01 DC 01/06/19 17:59 0.5 ML Info (CONTRAST GIVEN -- Rx MONITORING) 1 each PRN DAILY PRN 01/04/19 16:30 01/06/19 16:29 DC Insulin Glargine (Lantus) 18 units QHS 01/04/19 21:00 01/08/19 21:16 18 UNITS Insulin Human Lispro (HumaLOG) 0-9 UNITS TIDACHC 12/28/18 11:30 01/06/19 13:01 4 UNITS Iodixanol (Visipaque 320) 100 ml 1X ONCE 01/07/19 11:30 01/07/19 11:32 DC 01/07/19 12:46 45 ML Labetalol HCl (Normodyne Iv Push) 10 mg PRN Q2HR PRN 12/28/18 08:00 Lactobacillus Rhamnosus (Culturelle) 1 cap BID 12/29/18 21:00 01/08/19 21:06 1 CAP Levothyroxine Sodium (Synthroid) 50 mcg DAILY06 12/28/18 06:00 01/09/19 05:25 50 MCG Lidocaine HCl (Lidocaine 1% 20ml Vial) 20 ml 1X ONCE 01/07/19 11:30 01/07/19 11:32 DC 01/07/19 12:44 9 ML Lidocaine HCl (Lidocaine Pf 2% Vial) 5 ml STK-MED ONCE 12/31/18 07:05 12/31/18 07:06 DC Lidocaine HCl (Xylocaine 1% Pf 30ml Vial) 30 ml STK-MED ONCE 12/31/18 07:02 12/31/18 07:03 DC Lidocaine HCl (Xylocaine-Mpf 1% 2ml Vial) 2 ml PRN 1X PRN 12/31/18 07:00 01/01/19 06:59 DC Linezolid/Dextrose 300 ml @ 300 mls/hr Q12HR 12/29/18 15:00 01/08/19 21:05 300 MLS/HR Lorazepam (Ativan) 0.5 mg PRN Q6HRS PRN 01/01/19 23:00 01/07/19 20:18 0.5 MG Metoprolol Succinate (Toprol Xl) 25 mg DAILY 12/28/18 09:00 01/08/19 08:49 25 MG Midazolam HCl (Versed) 2 mg STK-MED ONCE 01/07/19 12:00 01/07/19 12:01 DC Morphine Sulfate (Morphine Sulfate) 1 mg PRN Q10MIN PRN 12/31/18 07:00 01/01/19 06:59 DC Multivitamins (Thera M Plus) 1 tab DAILY 12/30/18 09:00 01/08/19 08:47 1 TAB Niacin (Slo-Niacin) 500 mg HS 12/27/18 21:00 01/08/19 21:06 500 MG Nitroglycerin (Nitroglycerin) 200 mcg STK-MED ONCE 01/07/19 12:26 01/07/19 12:27 DC Non-Formulary Medication (Dulaglutide (Trulicity)) 1.5 mg WEEKLY 01/03/19 09:00 UNV Ondansetron HCl (Zofran Odt) 4 mg PRN Q6HRS PRN 12/28/18 08:00 Ondansetron HCl (Zofran) 4 mg STK-MED ONCE 12/31/18 09:39 12/31/18 09:40 DC Piperacillin Sod/ Tazobactam Sod (Zosyn Per Pharmacy) 1 each PRN DAILY PRN 12/29/18 11:45 Piperacillin Sod/ Tazobactam Sod 3.375 gm/Sodium Chloride 50 ml @ 100 mls/hr Q6HRS 12/29/18 12:00 01/09/19 05:29 100 MLS/HR Potassium Chloride (Klor-Con) 40 meq 1X ONCE 01/06/19 11:30 01/06/19 11:37 DC 01/06/19 12:50 40 MEQ Prochlorperazine Edisylate (Compazine) 10 mg STK-MED ONCE 12/31/18 08:57 12/31/18 08:58 DC Propofol 20 ml @ As Directed STK-MED ONCE 12/31/18 07:05 12/31/18 07:06 DC Protamine Sulfate (Protamine) 30 mg 1X ONCE 01/07/19 12:45 01/07/19 12:46 DC 01/07/19 12:45 30 MG Ringer's Solution 1,000 ml @ 30 mls/hr Q24H 12/31/18 07:00 2/28/19 18:59 DC Sodium Chloride 1,000 ml @ 150 mls/hr Q6H40M 01/07/19 13:15 01/08/19 09:00 DC 01/08/19 05:54 150 MLS/HR Tamsulosin HCl (Flomax) 0.4 mg QHS 01/06/19 21:00 01/08/19 21:06 0.4 MG Verapamil HCl (Verapamil) 2.5 mg 1X ONCE 01/07/19 11:30 01/07/19 12:34 DC Vitamin D (Vitamin D3) 5,000 unit DAILY 12/28/18 09:00 01/08/19 08:47 5,000 UNIT Lab Laboratory Tests Test 01/08/19 11:26 01/08/19 18:02 01/08/19 20:56 01/09/19 03:00 Glucose (Fingerstick) 167 mg/dL (70-99) 146 mg/dL (70-99) 126 mg/dL (70-99) White Blood Count 6.6 x10^3/uL (4.0-11.0) Red Blood Count 2.81 x10^6/uL (4.30-5.70) Hemoglobin 8.4 g/dL (13.0-17.5) Hematocrit 25.3 % (39.0-53.0) Mean Corpuscular Volume 90 fL (79-100) Mean Corpuscular Hemoglobin 30 pg (25-35) Mean Corpuscular Hemoglobin Concent 33 g/dL (31-37) Red Cell Distribution Width 13.9 % (11.5-14.5) Platelet Count 126 x10^3/uL (140-400) Neutrophils (%) (Auto) 68 % (31-73) Lymphocytes (%) (Auto) 17 % (24-48) Monocytes (%) (Auto) 8 % (0-9) Eosinophils (%) (Auto) 6 % (0-3) Basophils (%) (Auto) 1 % (0-3) Neutrophils # (Auto) 4.5 x10^3uL (1.8-7.7) Lymphocytes # (Auto) 1.1 x10^3/uL (1.0-4.8) Monocytes # (Auto) 0.5 x10^3/uL (0.0-1.1) Eosinophils # (Auto) 0.4 x10^3/uL (0.0-0.7) Basophils # (Auto) 0.1 x10^3/uL (0.0-0.2) Sodium Level 143 mmol/L (136-145) Potassium Level 3.4 mmol/L (3.5-5.1) Chloride Level 106 mmol/L (98-107) Carbon Dioxide Level 26 mmol/L (21-32) Anion Gap 11 (6-14) Blood Urea Nitrogen 18 mg/dL (8-26) Creatinine 1.7 mg/dL (0.7-1.3) Estimated GFR (Cockcroft-Gault) 39.8 BUN/Creatinine Ratio 11 (6-20) Glucose Level 141 mg/dL (70-99) Calcium Level 8.6 mg/dL (8.5-10.1) Total Bilirubin 0.7 mg/dL (0.2-1.0) Aspartate Amino Transf (AST/SGOT) 24 U/L (15-37) Alanine Aminotransferase (ALT/SGPT) 20 U/L (16-63) Alkaline Phosphatase 76 U/L (46-116) Total Protein 6.4 g/dL (6.4-8.2) Albumin 1.9 g/dL (3.4-5.0) Albumin/Globulin Ratio 0.4 (1.0-1.7) Test 01/09/19 08:02 Glucose (Fingerstick) 95 mg/dL (70-99) Results All relevant outside records, renal labs, imaging studies, telemetry/EKG's were reviewed. RICHIE GONZALEZ MD Jan 09, 2019 09:36
[2019-01-09 10:23] VITALS: BP 115/55
--- NOTE | 2019-01-09 11:14 | PDOC ---
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 PMH of HTN, CVA , DM2 Pt was seen and examined resting in chair at bedside, RN present, NAD Discussed with RN Pt was complaining of some LLE popliteal pain and bruising Discussed discharge plans, hope to D/C to SNF in the next few days Vitals Vitals Vital Signs Date Time Temp Pulse Resp B/P (MAP) Pulse Ox O2 Delivery O2 Flow Rate FiO2 01/09/19 10:23 97.6 72 20 115/55 (75) 96 Room Air 97.6 01/08/19 20:00 2.0 Physical Exam General: Alert, Oriented X3, Cooperative, No acute distress Heart: Regular rate, Normal S1, Normal S2, No murmurs Lungs: Clear Abdomen: Soft, No tenderness Extremities: No clubbing, No cyanosis, Other (R foot with bandage CDI, L foot with bandage on dorsal aspect of MCP joint) Skin: Other (R groin surgical access site has a clean/dry/intact dressing ) Labs LABS Laboratory Tests Test 01/08/19 11:26 01/08/19 18:02 01/08/19 20:56 01/09/19 03:00 Glucose (Fingerstick) 167 mg/dL (70-99) 146 mg/dL (70-99) 126 mg/dL (70-99) White Blood Count 6.6 x10^3/uL (4.0-11.0) Red Blood Count 2.81 x10^6/uL (4.30-5.70) Hemoglobin 8.4 g/dL (13.0-17.5) Hematocrit 25.3 % (39.0-53.0) Mean Corpuscular Volume 90 fL (79-100) Mean Corpuscular Hemoglobin 30 pg (25-35) Mean Corpuscular Hemoglobin Concent 33 g/dL (31-37) Red Cell Distribution Width 13.9 % (11.5-14.5) Platelet Count 126 x10^3/uL (140-400) Neutrophils (%) (Auto) 68 % (31-73) Lymphocytes (%) (Auto) 17 % (24-48) Monocytes (%) (Auto) 8 % (0-9) Eosinophils (%) (Auto) 6 % (0-3) Basophils (%) (Auto) 1 % (0-3) Neutrophils # (Auto) 4.5 x10^3uL (1.8-7.7) Lymphocytes # (Auto) 1.1 x10^3/uL (1.0-4.8) Monocytes # (Auto) 0.5 x10^3/uL (0.0-1.1) Eosinophils # (Auto) 0.4 x10^3/uL (0.0-0.7) Basophils # (Auto) 0.1 x10^3/uL (0.0-0.2) Sodium Level 143 mmol/L (136-145) Potassium Level 3.4 mmol/L (3.5-5.1) Chloride Level 106 mmol/L (98-107) Carbon Dioxide Level 26 mmol/L (21-32) Anion Gap 11 (6-14) Blood Urea Nitrogen 18 mg/dL (8-26) Creatinine 1.7 mg/dL (0.7-1.3) Estimated GFR (Cockcroft-Gault) 39.8 BUN/Creatinine Ratio 11 (6-20) Glucose Level 141 mg/dL (70-99) Calcium Level 8.6 mg/dL (8.5-10.1) Total Bilirubin 0.7 mg/dL (0.2-1.0) Aspartate Amino Transf (AST/SGOT) 24 U/L (15-37) Alanine Aminotransferase (ALT/SGPT) 20 U/L (16-63) Alkaline Phosphatase 76 U/L (46-116) Total Protein 6.4 g/dL (6.4-8.2) Albumin 1.9 g/dL (3.4-5.0) Albumin/Globulin Ratio 0.4 (1.0-1.7) Test 01/09/19 08:02 Glucose (Fingerstick) 95 mg/dL (70-99) Review of Systems Review of Systems Pt reports pain in L popliteal fossa Denies CP, SOB, n/v/d Assessment and Plan Assessmemt and Plan Assessmemt and Plan dry gangrene, ischemic toes, atherosclerosis of [place] arteries of right leg with gangrene of all toes --> s/ p perc revascularization 01/02/19 --> 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 Labs Laboratory Tests Test 01/07/19 12:22 01/07/19 17:51 01/07/19 21:39 01/08/19 03:00 Activated Clotting Time 253 sec (92-181) Glucose (Fingerstick) 152 mg/dL (70-99) 171 mg/dL (70-99) White Blood Count 8.5 x10^3/uL (4.0-11.0) Red Blood Count 2.88 x10^6/uL (4.30-5.70) Hemoglobin 8.6 g/dL (13.0-17.5) Hematocrit 26.2 % (39.0-53.0) Mean Corpuscular Volume 91 fL (79-100) Mean Corpuscular Hemoglobin 30 pg (25-35) Mean Corpuscular Hemoglobin Concent 33 g/dL (31-37) Red Cell Distribution Width 13.9 % (11.5-14.5) Platelet Count 148 x10^3/uL (140-400) Neutrophils (%) (Auto) 81 % (31-73) Lymphocytes (%) (Auto) 8 % (24-48) Monocytes (%) (Auto) 7 % (0-9) Eosinophils (%) (Auto) 3 % (0-3) Basophils (%) (Auto) 1 % (0-3) Neutrophils # (Auto) 6.9 x10^3uL (1.8-7.7) Lymphocytes # (Auto) 0.7 x10^3/uL (1.0-4.8) Monocytes # (Auto) 0.6 x10^3/uL (0.0-1.1) Eosinophils # (Auto) 0.2 x10^3/uL (0.0-0.7) Basophils # (Auto) 0.1 x10^3/uL (0.0-0.2) Sodium Level 140 mmol/L (136-145) Potassium Level 4.3 mmol/L (3.5-5.1) Chloride Level 104 mmol/L (98-107) Carbon Dioxide Level 28 mmol/L (21-32) Anion Gap 8 (6-14) Blood Urea Nitrogen 19 mg/dL (8-26) Creatinine 1.7 mg/dL (0.7-1.3) Estimated GFR (Cockcroft-Gault) 39.8 BUN/Creatinine Ratio 11 (6-20) Glucose Level 194 mg/dL (70-99) Calcium Level 8.4 mg/dL (8.5-10.1) Total Bilirubin 0.7 mg/dL (0.2-1.0) Aspartate Amino Transf (AST/SGOT) 24 U/L (15-37) Alanine Aminotransferase (ALT/SGPT) 18 U/L (16-63) Alkaline Phosphatase 70 U/L (46-116) Total Protein 6.2 g/dL (6.4-8.2) Albumin 1.9 g/dL (3.4-5.0) Albumin/Globulin Ratio 0.4 (1.0-1.7) Test 01/08/19 08:16 01/08/19 11:26 01/08/19 18:02 01/08/19 20:56 Glucose (Fingerstick) 164 mg/dL (70-99) 167 mg/dL (70-99) 146 mg/dL (70-99) 126 mg/dL (70-99) Test 01/09/19 03:00 01/09/19 08:02 White Blood Count 6.6 x10^3/uL (4.0-11.0) Red Blood Count 2.81 x10^6/uL (4.30-5.70) Hemoglobin 8.4 g/dL (13.0-17.5) Hematocrit 25.3 % (39.0-53.0) Mean Corpuscular Volume 90 fL (79-100) Mean Corpuscular Hemoglobin 30 pg (25-35) Mean Corpuscular Hemoglobin Concent 33 g/dL (31-37) Red Cell Distribution Width 13.9 % (11.5-14.5) Platelet Count 126 x10^3/uL (140-400) Neutrophils (%) (Auto) 68 % (31-73) Lymphocytes (%) (Auto) 17 % (24-48) Monocytes (%) (Auto) 8 % (0-9) Eosinophils (%) (Auto) 6 % (0-3) Basophils (%) (Auto) 1 % (0-3) Neutrophils # (Auto) 4.5 x10^3uL (1.8-7.7) Lymphocytes # (Auto) 1.1 x10^3/uL (1.0-4.8) Monocytes # (Auto) 0.5 x10^3/uL (0.0-1.1) Eosinophils # (Auto) 0.4 x10^3/uL (0.0-0.7) Basophils # (Auto) 0.1 x10^3/uL (0.0-0.2) Sodium Level 143 mmol/L (136-145) Potassium Level 3.4 mmol/L (3.5-5.1) Chloride Level 106 mmol/L (98-107) Carbon Dioxide Level 26 mmol/L (21-32) Anion Gap 11 (6-14) Blood Urea Nitrogen 18 mg/dL (8-26) Creatinine 1.7 mg/dL (0.7-1.3) Estimated GFR (Cockcroft-Gault) 39.8 BUN/Creatinine Ratio 11 (6-20) Glucose Level 141 mg/dL (70-99) Calcium Level 8.6 mg/dL (8.5-10.1) Total Bilirubin 0.7 mg/dL (0.2-1.0) Aspartate Amino Transf (AST/SGOT) 24 U/L (15-37) Alanine Aminotransferase (ALT/SGPT) 20 U/L (16-63) Alkaline Phosphatase 76 U/L (46-116) Total Protein 6.4 g/dL (6.4-8.2) Albumin 1.9 g/dL (3.4-5.0) Albumin/Globulin Ratio 0.4 (1.0-1.7) Glucose (Fingerstick) 95 mg/dL (70-99) Laboratory Tests Test 01/08/19 11:26 01/08/19 18:02 01/08/19 20:56 01/09/19 03:00 Glucose (Fingerstick) 167 mg/dL (70-99) 146 mg/dL (70-99) 126 mg/dL (70-99) White Blood Count 6.6 x10^3/uL (4.0-11.0) Red Blood Count 2.81 x10^6/uL (4.30-5.70) Hemoglobin 8.4 g/dL (13.0-17.5) Hematocrit 25.3 % (39.0-53.0) Mean Corpuscular Volume 90 fL (79-100) Mean Corpuscular Hemoglobin 30 pg (25-35) Mean Corpuscular Hemoglobin Concent 33 g/dL (31-37) Red Cell Distribution Width 13.9 % (11.5-14.5) Platelet Count 126 x10^3/uL (140-400) Neutrophils (%) (Auto) 68 % (31-73) Lymphocytes (%) (Auto) 17 % (24-48) Monocytes (%) (Auto) 8 % (0-9) Eosinophils (%) (Auto) 6 % (0-3) Basophils (%) (Auto) 1 % (0-3) Neutrophils # (Auto) 4.5 x10^3uL (1.8-7.7) Lymphocytes # (Auto) 1.1 x10^3/uL (1.0-4.8) Monocytes # (Auto) 0.5 x10^3/uL (0.0-1.1) Eosinophils # (Auto) 0.4 x10^3/uL (0.0-0.7) Basophils # (Auto) 0.1 x10^3/uL (0.0-0.2) Sodium Level 143 mmol/L (136-145) Potassium Level 3.4 mmol/L (3.5-5.1) Chloride Level 106 mmol/L (98-107) Carbon Dioxide Level 26 mmol/L (21-32) Anion Gap 11 (6-14) Blood Urea Nitrogen 18 mg/dL (8-26) Creatinine 1.7 mg/dL (0.7-1.3) Estimated GFR (Cockcroft-Gault) 39.8 BUN/Creatinine Ratio 11 (6-20) Glucose Level 141 mg/dL (70-99) Calcium Level 8.6 mg/dL (8.5-10.1) Total Bilirubin 0.7 mg/dL (0.2-1.0) Aspartate Amino Transf (AST/SGOT) 24 U/L (15-37) Alanine Aminotransferase (ALT/SGPT) 20 U/L (16-63) Alkaline Phosphatase 76 U/L (46-116) Total Protein 6.4 g/dL (6.4-8.2) Albumin 1.9 g/dL (3.4-5.0) Albumin/Globulin Ratio 0.4 (1.0-1.7) Test 01/09/19 08:02 Glucose (Fingerstick) 95 mg/dL (70-99) Medications Current Medications Insulin Human Lispro (HumaLOG) 0-9 UNITS TIDWMEALS SQ Last administered on 12/27 18:33; Start 12/27/18 at 17:00; Stop 12/28/18 at 07:59; Status DC Dextrose (Dextrose 50%-Water Syringe) 12.5 gm PRN Q15MIN PRN IV SEE COMMENTS Last administered on 01/06/19at 08:06; Start 12/27/18 at 16:45 Atorvastatin Calcium (Lipitor) 40 mg HS PO Last administered on 01/08/19at 21:06 ; Start 12/27/18 at 21:00 Metoprolol Succinate (Toprol Xl) 25 mg DAILY PO Last administered on 01/08/19at 08:49; Start 12/28/18 at 09:00 Niacin (Slo-Niacin) 500 mg HS PO Last administered on 01/08/19at 21:06; Start at 21:00 Vitamin D (Vitamin D3) 5,000 unit DAILY PO Last administered on 01/08/19at 08:47 ; Start 12/28/18 at 09:00 Non-Formulary Medication (Dulaglutide (Trulicity)) 1.5 mg WEEKLY SQ ; Start 01/03 at 09:00; Status UNV Glimepiride (Amaryl) 4 mg BIDAC PO Last administered on 01/03/19 18:02; Start 12/27/18 at 18:30; Stop 01/04/19 at 07:48; Status DC Hydrochlorothiazide (Hydrodiuril) 25 mg DAILY PO Last administered on 01/03/19at 09:30; Start 12/28/18 at 09:00; Stop 01/04/19 at 07:48; Status DC Insulin Glargine (Lantus) 32 units QHS SQ Last administered on 01/03/19at 22:15; Start 12/27/18 at 21:00; Stop 01/04/19 at 16:05; Status DC Levothyroxine Sodium (Synthroid) 50 mcg DAILY06 PO Last administered on 05:25; Start 12/28/18 at 06:00 Insulin Human Lispro (HumaLOG) 0-9 UNITS TIDACHC SQ Last administered on at 13:01; Start 12/28/18 at 11:30 Labetalol HCl (Normodyne Iv Push) 10 mg PRN Q2HR PRN IVP HYPERTENSION, SEE COMMENTS; Start 12/28/18 at 08:00 Acetaminophen (Tylenol) 500 mg PRN Q6HRS PRN PO MILD PAIN / TEMP; Start at 08:00 Acetaminophen/ Codeine Phosphate (Tylenol #3) 1 tab PRN Q6HRS PRN PO MODERATE TO SEVERE PAIN Last administered on 01/02/19at 02:15; Start 12/28/18 at 08:00 Ondansetron HCl (Zofran) 4 mg PRN Q6HRS PRN IV NAUSEA/VOMITING; Start 12/28/18 at 08:00 Ondansetron HCl (Zofran Odt) 4 mg PRN Q6HRS PRN PO NAUSEA/VOMITING; Start 12/28 at 08:00 Sodium Chloride 1,000 ml @ 75 mls/hr 1X ONCE IV Last administered on at 15:23; Start 12/28/18 at 14:30; Stop 12/29/18 at 03:49; Status DC Sodium Chloride 500 ml @ 250 mls/hr 1X ONCE IV ; Start 12/29/18 at 11:00; Stop 12/29/18 at 12:51; Status DC Influenza Virus Vaccine (Afluria Trivalent [id number] Syringe) 0.5 ml ONCE ONCE VAX IM Last administered on 01/06/19at 17:59; Start 12/29/18 at 10:00; Stop 12/29 at 10:01; Status DC Piperacillin Sod/ Tazobactam Sod (Zosyn Per Pharmacy) 1 each PRN DAILY PRN MC SEE COMMENTS; Start 12/29/18 at 11:45 Aspirin (Ecotrin) 81 mg DAILYWBKFT PO Last administered on 01/08/19at 08:46; Start 12/29/18 at 12:00 Piperacillin Sod/ Tazobactam Sod 3.375 gm/Sodium Chloride 50 ml @ 100 mls/hr Q6HRS IV Last administered on 01/09/19at 05:29; Start 12/29/18 at 12:00 Sodium Chloride 1,000 ml @ 75 mls/hr 1X ONCE IV Last administered on at 01:12; Start 12/30/18 at 00:00; Stop 12/30/18 at 13:19; Status DC Sodium Chloride 500 ml @ 250 mls/hr 1X ONCE IV Last administered on at 08:13; Start 12/30/18 at 09:30; Stop 12/30/18 at 11:29; Status DC Lactobacillus Rhamnosus (Culturelle) 1 cap BID PO Last administered on at 21:06; Start 12/29/18 at 21:00 Multivitamins (Thera M Plus) 1 tab DAILY PO Last administered on 01/08/19at 08:47 ; Start 12/30/18 at 09:00 Linezolid/Dextrose 300 ml @ 300 mls/hr Q12HR IV Last administered on 01/08/19at 21:05; Start 12/29/18 at 15:00 Midazolam HCl (Versed) 5 mg STK-MED ONCE .ROUTE ; Start 12/30/18 at 08:07; Stop 12/30/18 at 08:08; Status DC Fentanyl Citrate (Fentanyl 2ml Vial) 100 mcg STK-MED ONCE .ROUTE ; Start at 08:07; Stop 12/30/18 at 08:08; Status DC Heparin Sodium (Porcine) (Heparin Sodium) 10,000 unit STK-MED ONCE .ROUTE ; Start 12/30/18 at 08:07; Stop 12/30/18 at 08:08; Status DC Iodixanol (Visipaque 320) 100 ml STK-MED ONCE .ROUTE ; Start 12/30/18 at 08:07; Stop 12/30/18 at 08:08; Status DC Lidocaine HCl (Lidocaine 1% 20ml Vial) 20 ml STK-MED ONCE .ROUTE ; Start at 08:07; Stop 12/30/18 at 08:08; Status DC Heparin Sodium/ Sodium Chloride 1,500 ml @ As Directed STK-MED ONCE .ROUTE ; Start 12/30/18 at 08:07; Stop 12/30/18 at 08:08; Status DC Heparin Sodium/ Sodium Chloride (HEPARIN for ARTERIAL LINE FLUSH) 1,000 unit 1X ONCE IART Last administered on 12/30/18at 10:53; Start 12/30/18 at 09:15; Stop 12/30/18 at 09:16; Status DC Midazolam HCl (Versed) 5 mg 1X ONCE IV Last administered on 12/30/18at 11:01; Start 12/30/18 at 09:15; Stop 12/30/18 at 09:16; Status DC Fentanyl Citrate (Fentanyl 2ml Vial) 100 mcg 1X ONCE IV Last administered on at 10:55; Start 12/30/18 at 09:15; Stop 12/30/18 at 09:16; Status DC Iodixanol (Visipaque 320) 100 ml 1X ONCE IART Last administered on 12/30/18at 11:01; Start 12/30/18 at 09:15; Stop 12/30/18 at 09:16; Status DC Lidocaine HCl (Lidocaine 1% 20ml Vial) 20 ml 1X ONCE INJ Last administered on 12/30/18at 11:01; Start 12/30/18 at 09:15; Stop 12/30/18 at 09:16; Status DC Iodixanol (Visipaque 320) 100 ml STK-MED ONCE .ROUTE ; Start 12/30/18 at 09:42; Stop 12/30/18 at 09:43; Status DC Heparin Sodium (Porcine) (Heparin Sodium) 6,000 unit 1X ONCE IV Last administered on 12/30/18at 11:00; Start 12/30/18 at 09:16; Stop 12/30/18 at 10:06 ; Status DC Lidocaine HCl (Lidocaine 1% 20ml Vial) 20 ml STK-MED ONCE .ROUTE ; Start at 10:06; Stop 12/30/18 at 10:07; Status DC Nitroglycerin (Nitroglycerin) 200 mcg 1X ONCE IART Last administered on at 11:01; Start 12/30/18 at 10:15; Stop 12/30/18 at 10:16; Status DC Protamine Sulfate (Protamine) 50 mg STK-MED ONCE IV ; Start 12/30/18 at 10:39; Stop 12/30/18 at 10:40; Status DC Protamine Sulfate (Protamine) 30 mg 1X ONCE IV Last administered on 12/30/18at 10:48; Start 12/30/18 at 10:48; Stop 12/30/18 at 10:58; Status DC Morphine Sulfate (Morphine Sulfate) 1 mg PRN Q10MIN PRN IV SEVERE PAIN; Start 12/31/18 at 07:00; Stop 01/01/19 at 06:59; Status DC Ringer's Solution 1,000 ml @ 30 mls/hr Q24H IV ; Start 12/31/18 at 07:00; Stop 12/31/18 at 18:59; Status DC Lidocaine HCl (Xylocaine-Mpf 1% 2ml Vial) 2 ml PRN 1X PRN ID PRIOR TO IV START ; Start 12/31/18 at 07:00; Stop 01/01/19 at 06:59; Status DC Hydromorphone HCl (Dilaudid) 0.5 mg PRN Q10MIN PRN IV SEV PAIN, Second choice; Start 12/31/18 at 07:00; Stop 01/01/19 at 06:59; Status DC Prochlorperazine Edisylate (Compazine) 5 mg PACU PRN PRN IV NAUSEA, MRX1 Last administered on 12/31/18at 09:31; Start 12/31/18 at 07:00; Stop 01/01/19 at 06:59 ; Status DC Lidocaine HCl (Xylocaine 1% Pf 30ml Vial) 30 ml STK-MED ONCE .ROUTE Last administered on 12/31/18at 07:18; Start 12/31/18 at 07:02; Stop 12/31/18 at 07:03 ; Status DC Lidocaine HCl (Xylocaine 1% Pf 30ml Vial) 30 ml STK-MED ONCE .ROUTE ; Start at 07:02; Stop 12/31/18 at 07:03; Status DC Bupivacaine HCl (Sensorcaine Mpf 0.5%) 30 ml STK-MED ONCE .ROUTE Last administered on 12/31/18at 07:18; Start 12/31/18 at 07:02; Stop 12/31/18 at 07:03 ; Status DC Ondansetron HCl (Zofran) 4 mg STK-MED ONCE .ROUTE ; Start 12/31/18 at 07:05; Stop 12/31/18 at 07:06; Status DC Lidocaine HCl (Lidocaine Pf 2% Vial) 5 ml STK-MED ONCE .ROUTE ; Start 12/31/18 at 07:05; Stop 12/31/18 at 07:06; Status DC Propofol 20 ml @ As Directed STK-MED ONCE IV ; Start 12/31/18 at 07:05; Stop at 07:06; Status DC Famotidine (Pepcid Vial) 20 mg STK-MED ONCE .ROUTE ; Start 12/31/18 at 07:05; Stop 12/31/18 at 07:06; Status DC Dexamethasone Sodium Phosphate (Decadron) 20 mg STK-MED ONCE .ROUTE ; Start at 07:05; Stop 12/31/18 at 07:06; Status Cancel Fentanyl Citrate (Fentanyl 2ml Vial) 100 mcg STK-MED ONCE .ROUTE ; Start at 07:06; Stop 12/31/18 at 07:07; Status DC Desflurane (Suprane) 60 ml STK-MED ONCE IH ; Start 12/31/18 at 08:45; Stop 12/31 at 08:46; Status DC Prochlorperazine Edisylate (Compazine) 10 mg STK-MED ONCE .ROUTE ; Start at 08:57; Stop 12/31/18 at 08:58; Status DC Ondansetron HCl (Zofran) 4 mg STK-MED ONCE .ROUTE ; Start 12/31/18 at 09:39; Stop 12/31/18 at 09:40; Status DC Sodium Chloride 1,000 ml @ 100 mls/hr Q10H IV ; Start 01/03/19 at 12:00; Stop at 12:00; Status DC Lorazepam (Ativan) 0.5 mg PRN Q6HRS PRN PO ANXIETY / AGITATION Last administered on 01/07/19at 20:18; Start 01/01/19 at 23:00 Clopidogrel Bisulfate (Plavix) 75 mg DAILYWBKFT PO Last administered on at 08:47; Start 01/02/19 at 14:00 Sodium Chloride 1,000 ml @ 75 mls/hr [id number] IV Last administered on 01/04/19at 18:16; Start 01/03/19 at 12:00; Stop 01/05/19 at 18:17; Status DC Potassium Chloride (Klor-Con) 20 meq 1X ONCE PO ; Start 01/04/19 at 08:30; Stop 01/04/19 at 08:31; Status DC Lidocaine HCl (Lidocaine 1% 20ml Vial) 20 ml STK-MED ONCE .ROUTE ; Start at 14:40; Stop 01/04/19 at 14:41; Status DC Heparin Sodium/ Sodium Chloride 500 ml @ As Directed STK-MED ONCE .ROUTE ; Start 01/04/19 at 14:40; Stop 01/04/19 at 14:41; Status DC Midazolam HCl (Versed) 5 mg STK-MED ONCE .ROUTE ; Start 01/04/19 at 14:44; Stop 01/04/19 at 14:45; Status DC Fentanyl Citrate (Fentanyl 2ml Vial) 100 mcg STK-MED ONCE .ROUTE ; Start at 14:45; Stop 01/04/19 at 14:46; Status DC Heparin Sodium (Porcine) (Heparin Sodium) 10,000 unit STK-MED ONCE .ROUTE ; Start 01/04/19 at 14:45; Stop 01/04/19 at 14:46; Status DC Heparin Sodium/ Sodium Chloride (HEPARIN for ARTERIAL LINE FLUSH) 1,000 unit 1X ONCE IART Last administered on 01/04/19at 15:30; Start 01/04/19 at 15:30; Stop 01/04/19 at 15:38; Status DC Midazolam HCl (Versed) 5 mg 1X ONCE IV Last administered on 01/04/19 15:30; Start 01/04/19 at 15:30; Stop 01/04/19 at 15:38; Status DC Fentanyl Citrate (Fentanyl 2ml Vial) 100 mcg 1X ONCE IV Last administered on 15:30; Start 01/04/19 at 15:30; Stop 01/04/19 at 15:38; Status DC Iodixanol (Visipaque 320) 100 ml 1X ONCE IART ; Start 01/04/19 at 15:30; Stop at 15:56; Status DC Heparin Sodium (Porcine) (Heparin Sodium) 5,000 unit 1X ONCE IV Last administered on 01/04/19 15:30; Start 01/04/19 at 15:30; Stop 01/04/19 at 15:39; Status DC Lidocaine HCl (Lidocaine 1% 20ml Vial) 20 ml 1X ONCE INJ Last administered on 01/04/19 15:30; Start 01/04/19 at 15:30; Stop 01/04/19 at 15:39; Status DC Insulin Glargine (Lantus) 18 units QHS SQ Last administered on 01/08/19 21:16; Start 01/04/19 at 21:00 Iodixanol (Visipaque 320) 100 ml 1X ONCE IART Last administered on 01/04/19 16 :30; Start 01/04/19 at 16:30; Stop 01/04/19 at 16:31; Status DC Info (CONTRAST GIVEN -- Rx MONITORING) 1 each PRN DAILY PRN MC SEE COMMENTS; Start 01/04/19 at 16:30; Stop 01/06/19 at 16:29; Status DC Albuterol/ Ipratropium (Duoneb) 3 ml RTQID NEB ; Start 01/05/19 at 08:00; Stop at 08:00; Status DC Amlodipine Besylate (Norvasc) 5 mg DAILY PO Last administered on 01/08/19 08:48 ; Start 01/05/19 at 10:30 Sodium Chloride 1,000 ml @ 75 mls/hr [id number] IV Last administered on 3/8/19at 10:00; Start 01/06/19 at 18:00 Potassium Chloride (Klor-Con) 40 meq 1X ONCE PO Last administered on 01/06/19at 12:50; Start 01/06/19 at 11:30; Stop 01/06/19 at 11:37; Status DC Tamsulosin HCl (Flomax) 0.4 mg QHS PO Last administered on 01/08/19at 21:06; Start 01/06/19 at 21:00 Iodixanol (Visipaque 320) 100 ml STK-MED ONCE .ROUTE ; Start 01/07/19 at 07:40; Stop 01/07/19 at 07:41; Status DC Lidocaine HCl (Lidocaine 1% 20ml Vial) 20 ml STK-MED ONCE .ROUTE ; Start at 07:40; Stop 01/07/19 at 07:41; Status DC Heparin Sodium/ Sodium Chloride 1,500 ml @ As Directed STK-MED ONCE .ROUTE ; Start 01/07/19 at 07:40; Stop 01/07/19 at 07:41; Status DC Midazolam HCl (Versed) 2 mg STK-MED ONCE .ROUTE ; Start 01/07/19 at 09:35; Stop 01/07/19 at 09:36; Status DC Fentanyl Citrate (Fentanyl 2ml Vial) 100 mcg STK-MED ONCE .ROUTE ; Start at 09:35; Stop 01/07/19 at 09:36; Status DC Verapamil HCl (Verapamil) 5 mg STK-MED ONCE .ROUTE ; Start 01/07/19 at 09:58; Stop 01/07/19 at 09:59; Status DC Heparin Sodium (Porcine) (Heparin Sodium) 10,000 unit STK-MED ONCE .ROUTE ; Start 01/07/19 at 09:58; Stop 01/07/19 at 09:59; Status DC Nitroglycerin (Nitroglycerin) 200 mcg STK-MED ONCE .ROUTE ; Start 01/07/19 at 09: 58; Stop 01/07/19 at 09:59; Status DC Nitroglycerin (Nitroglycerin) 200 mcg 1X ONCE IART Last administered on at 12:44; Start 01/07/19 at 11:30; Stop 01/07/19 at 11:32; Status DC Verapamil HCl (Verapamil) 2.5 mg 1X ONCE IART ; Start 01/07/19 at 11:30; Stop at 12:34; Status DC Heparin Sodium (Porcine) (Heparin Sodium) 2,500 unit 1X ONCE IART ; Start at 11:30; Stop 01/07/19 at 12:34; Status DC Heparin Sodium/ Sodium Chloride (HEPARIN for ARTERIAL LINE FLUSH) 1,000 unit 1X ONCE IART Last administered on 01/07/19at 12:43; Start 01/07/19 at 11:30; Stop 01/07/19 at 11:32; Status DC Heparin Sodium/ Sodium Chloride (HEPARIN for ARTERIAL LINE FLUSH) 1,000 unit 1X ONCE IART Last administered on 01/07/19at 12:44; Start 01/07/19 at 11:30; Stop 01/07/19 at 11:32; Status DC Midazolam HCl (Versed) 2 mg 1X ONCE IV Last administered on 01/07/19 12:45; Start 01/07/19 at 11:30; Stop 01/07/19 at 11:32; Status DC Fentanyl Citrate (Fentanyl 2ml Vial) 100 mcg 1X ONCE IV Last administered on 12:45; Start 01/07/19 at 11:30; Stop 01/07/19 at 11:32; Status DC Iodixanol (Visipaque 320) 100 ml 1X ONCE IART Last administered on 01/07/19 12 :46; Start 01/07/19 at 11:30; Stop 01/07/19 at 11:32; Status DC Heparin Sodium (Porcine) (Heparin Sodium) 6,000 unit 1X ONCE IV Last administered on 01/07/19 12:46; Start 01/07/19 at 11:30; Stop 01/07/19 at 11:32; Status DC Lidocaine HCl (Lidocaine 1% 20ml Vial) 20 ml 1X ONCE INJ Last administered on 01/07/19 12:44; Start 01/07/19 at 11:30; Stop 01/07/19 at 11:32; Status DC Midazolam HCl (Versed) 2 mg STK-MED ONCE .ROUTE ; Start 01/07/19 at 12:00; Stop 01/07/19 at 12:01; Status DC Fentanyl Citrate (Fentanyl 2ml Vial) 100 mcg STK-MED ONCE .ROUTE ; Start at 12:01; Stop 01/07/19 at 12:02; Status DC Nitroglycerin (Nitroglycerin) 200 mcg STK-MED ONCE .ROUTE ; Start 01/07/19 at 12: 26; Stop 01/07/19 at 12:27; Status DC Protamine Sulfate (Protamine) 50 mg STK-MED ONCE IV ; Start 01/07/19 at 12:28; Stop 01/07/19 at 12:29; Status DC Protamine Sulfate (Protamine) 30 mg 1X ONCE IV Last administered on 01/07/19at 12:45; Start 01/07/19 at 12:45; Stop 01/07/19 at 12:46; Status DC Sodium Chloride 1,000 ml @ 150 mls/hr [id number] IV Last administered on 01/08/19at 05:54; Start 01/07/19 at 13:15; Stop 01/08/19 at 09:00; Status DC Active Scripts Active Reported Niaspan (Niacin) 500 Mg Tab.er.24h 500 Mg PO HS Hydrochlorothiazide Tablet (Hydrochlorothiazide) 12.5 Mg Tablet 25 Mg PO DAILY Metoprolol Succinate ( Xl ) (Metoprolol Succinate) 25 Mg Tab.er.24h 25 Mg PO DAILY Lipitor (Atorvastatin Calcium) 40 Mg Tablet 40 Mg PO HS Trulicity (Dulaglutide) 1.5 Mg/0.5 Ml Pen.injctr 1.5 Mg SQ WEEKLY Toujeo Solostar (Insulin Glargine,Hum.rec.anlog) 300 Unit/1 Ml Insuln.pen 40 Unit SQ HS Aspirin 81 Mg Tab.chew 81 Mg PO BID Glimepiride 4 Mg Tablet 4 Mg PO BIDAC Synthroid (Levothyroxine Sodium) 50 Mcg Tablet 50 Mcg PO DAILYAC Vitamin D3 (Cholecalciferol (Vitamin D3)) 5,000 Unit Tablet 5,000 Unit PO DAILY Vitals/I & O Vital Sign - Last 24 Hours 01/08/19 01/08/19 01/08/19 01/08/19 15:00 19:40 20:00 23:36 Temp 97.1 97.7 97.9 97.1 97.7 97.9 Pulse 81 79 85 Resp 16 18 20 B/P (MAP) 139/65 (89) 139/62 (87) 141/64 (89) Pulse Ox 93 99 98 O2 Delivery Room Air Room Air Room Air Room Air O2 Flow Rate 2.0 01/09/19 01/09/19 01/09/19 03:47 07:40 10:23 Temp 97.5 97.8 97.6 97.5 97.8 97.6 Pulse 74 77 72 Resp 20 12 20 B/P (MAP) 134/50 (78) 138/61 (86) 115/55 (75) Pulse Ox 97 98 96 O2 Delivery Room Air Room Air Room Air Intake and Output 01/08/19 01/08/19 01/09/19 15:00 23:00 07:00 Intake Total 60 ml 600 ml Output Total 0 ml 0 ml 260 ml Balance 0 ml 60 ml 340 ml PATIENCE ACUÑA III DO Jan 09, 2019 11:14
[2019-01-09] MEDS ORDERED: POTASSIUM CHLORIDE 20 MEQ TABLET.ER. PO ONE (11:15)
[2019-01-09] MEDS: LACTOBACILLUS RHAMNOSUS GG 1 CAPSULE. PO SCH ×2 (11:27→21:54)
[2019-01-09] MEDS: amLODIPine BESYLATE 5 MG TABLET PO SCH (11:27)
[2019-01-09] MEDS: MULTIVITAMIN with MINERAL TABLET. PO SCH (11:27)
[2019-01-09] MEDS: METOPROLOL SUCC 24HR ER 25 MG TAB.ER.24H. PO SCH (11:27)
[2019-01-09] MEDS: CLOPIDOGREL BISULFATE 75 MG TABLET PO SCH (11:28)
[2019-01-09] MEDS: ASPIRIN ENTERIC COATED 81 MG TABLET.DR. PO SCH (11:28)
[2019-01-09] MEDS: CHOLECALCIFEROL (VITAMIN D3) 5,000 UNIT CAPSULE PO SCH (11:28)
--- NOTE | 2019-01-09 11:38 | PDOC ---
Infectious Disease Note Subjective Subjective Feeling alright + diarrhea, no cramps/bloating/N/V No F/C/S/pain ROS ROS per HPI Vital Sign Vital Signs Vital Signs Date Time Temp Pulse Resp B/P (MAP) Pulse Ox O2 Delivery O2 Flow Rate FiO2 01/09/19 10:23 97.6 72 20 115/55 (75) 96 Room Air 97.6 01/08/19 20:00 2.0 Physical Exam PHYSICAL EXAM GENERAL: Sitting in the chair, alert, NAD HEENT: Oral cavity clear NECK: Supple LUNGS: Clear. HEART: S1, S2 ABDOMEN: Obese, soft, NT, BS present EXTREMITIES: 2-3 + edema BLE. Right foot bandaged NEUROLOGIC: Alert, responds appropriately PIV ok Labs Lab Laboratory Tests Test 01/08/19 18:02 01/08/19 20:56 01/09/19 03:00 01/09/19 08:02 Glucose (Fingerstick) 146 mg/dL (70-99) 126 mg/dL (70-99) 95 mg/dL (70-99) White Blood Count 6.6 x10^3/uL (4.0-11.0) Red Blood Count 2.81 x10^6/uL (4.30-5.70) Hemoglobin 8.4 g/dL (13.0-17.5) Hematocrit 25.3 % (39.0-53.0) Mean Corpuscular Volume 90 fL (79-100) Mean Corpuscular Hemoglobin 30 pg (25-35) Mean Corpuscular Hemoglobin Concent 33 g/dL (31-37) Red Cell Distribution Width 13.9 % (11.5-14.5) Platelet Count 126 x10^3/uL (140-400) Neutrophils (%) (Auto) 68 % (31-73) Lymphocytes (%) (Auto) 17 % (24-48) Monocytes (%) (Auto) 8 % (0-9) Eosinophils (%) (Auto) 6 % (0-3) Basophils (%) (Auto) 1 % (0-3) Neutrophils # (Auto) 4.5 x10^3uL (1.8-7.7) Lymphocytes # (Auto) 1.1 x10^3/uL (1.0-4.8) Monocytes # (Auto) 0.5 x10^3/uL (0.0-1.1) Eosinophils # (Auto) 0.4 x10^3/uL (0.0-0.7) Basophils # (Auto) 0.1 x10^3/uL (0.0-0.2) Sodium Level 143 mmol/L (136-145) Potassium Level 3.4 mmol/L (3.5-5.1) Chloride Level 106 mmol/L (98-107) Carbon Dioxide Level 26 mmol/L (21-32) Anion Gap 11 (6-14) Blood Urea Nitrogen 18 mg/dL (8-26) Creatinine 1.7 mg/dL (0.7-1.3) Estimated GFR (Cockcroft-Gault) 39.8 BUN/Creatinine Ratio 11 (6-20) Glucose Level 141 mg/dL (70-99) Calcium Level 8.6 mg/dL (8.5-10.1) Total Bilirubin 0.7 mg/dL (0.2-1.0) Aspartate Amino Transf (AST/SGOT) 24 U/L (15-37) Alanine Aminotransferase (ALT/SGPT) 20 U/L (16-63) Alkaline Phosphatase 76 U/L (46-116) Total Protein 6.4 g/dL (6.4-8.2) Albumin 1.9 g/dL (3.4-5.0) Albumin/Globulin Ratio 0.4 (1.0-1.7) Objective Assessment Right foot cellulitis. Right foot all toes gangrene. s/p right leg angioplasty and TMA w/ primary closure on 12/31. Left big toe ulcer s/p debridement to level of bone and tendon on 12/31 PAD s/p left SFA angioplasty and left peroneal artery, angioplasty, 01/04 -s/p angioplasty of left Anterior tibial artery,, left peroneal artery, Leukocytosis - improved Diabetes. Coronary artery disease. Renal insufficiency. Diarrhea C diff neg Plan Plan of Care Zyvox, Zosyn PICC line Probiotics Wound care Supportive care PAUL CRAIG APRN Jan 09, 2019 11:38 JESSA CALLAHAN MD Jan 09, 2019 15:14
[2019-01-09] MEDS: IV NORMAL SALINE 1000ML BAG 1,000 ML IV SCH (12:40)
[2019-01-09 15:00] VITALS: BP 137/63
--- NOTE | 2019-01-09 15:01 | RAD ---
EXAM: Left lower extremity venous Doppler. HISTORY: Left lower extremity pain/swelling. Left calf ecchymosis. COMPARISON: None. FINDINGS: Grayscale and Doppler analysis of the left lower extremity deep venous system was performed with graded compression and augmentation. The common femoral, greater saphenous, superficial femoral, popliteal and calf veins were assessed. There is no evidence of deep venous thrombosis. At the site of bruising along the left calf, no fluid collection is seen. IMPRESSION: 1. No evidence of deep venous thrombosis. Electronically signed by: Page Oliva MD (01/09/2019 2:58 PM) [facility] [place]
[2019-01-09 19:41] VITALS: BP 118/57
[2019-01-09] MEDS: TAMSULOSIN 0.4 MG CAP.ER.24H. PO SCH (21:53)
[2019-01-09] MEDS: NIACIN ER 500 MG TABLET.ER PO SCH (21:53)
[2019-01-09] MEDS: ATORVASTATIN CALCIUM 40 MG TABLET. PO SCH (21:54)
[2019-01-09] MEDS: INSULIN GLARGINE 300 UNITS/3 ML INSULN.PEN. SQ SCH (22:16)
[2019-01-09 23:13] VITALS: BP 122/64
[2019-01-10] MEDS: IV NORMAL SALINE 1000ML BAG 1,000 ML IV SCH ×2 (02:00→15:20)
[2019-01-10 03:40] VITALS: BP 131/56
[2019-01-10] MEDS: LEVOTHYROXINE 50 MCG TABLET PO SCH (06:52)
[2019-01-10] MEDS: PIPERACILLIN/TAZOBACTAM 3.375 GM in IV NORMAL SALINE 50ML 50 ML IV SCH ×5 (06:52→17:33)
[2019-01-10 07:20] VITALS: BP 115/53
[2019-01-10] MEDS: INSULIN LISPRO 300 UNITS/3 ML INSULN.PEN. SQ SCH ×4 (07:30→21:00)
[2019-01-10] MEDS: CLOPIDOGREL BISULFATE 75 MG TABLET PO SCH (08:00)
[2019-01-10] MEDS: ASPIRIN ENTERIC COATED 81 MG TABLET.DR. PO SCH (08:23)
[2019-01-10] MEDS: LACTOBACILLUS RHAMNOSUS GG 1 CAPSULE. PO SCH ×2 (08:23→22:34)
[2019-01-10] MEDS: CHOLECALCIFEROL (VITAMIN D3) 5,000 UNIT CAPSULE PO SCH (08:23)
[2019-01-10] MEDS: amLODIPine BESYLATE 5 MG TABLET PO SCH (08:24)
[2019-01-10] MEDS: MULTIVITAMIN with MINERAL TABLET. PO SCH (08:24)
[2019-01-10] MEDS: METOPROLOL SUCC 24HR ER 25 MG TAB.ER.24H. PO SCH (08:24)
[2019-01-10 08:39] LABS: BASO # 0.1 x10^3/uL (0.0-0.2); BASO % 1 % (0-3); EOS # 0.5 x10^3/uL (0.0-0.7); EOS % 8 % (0-3); HEMATOCRIT 23.2 % (39.0-53.0); HEMOGLOBIN 7.6 g/dL (13.0-17.5); LYMPH # 1.2 x10^3/uL (1.0-4.8); LYMPH % 19 % (24-48); MEAN CORPUSCULAR HEMOGLOBIN 30 pg (25-35); MEAN CORPUSCULAR HGB CONC 33 g/dL (31-37); MEAN CORPUSCULAR VOLUME 90 fL (79-100); MONO # 0.5 x10^3/uL (0.0-1.1); MONO % 8 % (0-9); NEUT # 4.1 x10^3uL (1.8-7.7); NEUT % 64 % (31-73); PLATELET COUNT 130 x10^3/uL (140-400); RED BLOOD COUNT 2.57 x10^6/uL (4.30-5.70); RED CELL DISTRIBUTION WIDTH 13.9 % (11.5-14.5); WHITE BLOOD COUNT 6.5 x10^3/uL (4.0-11.0)
[2019-01-10 08:57] LABS: ALBUMIN/GLOBULIN RATIO 0.5 (1.0-1.7); CALCIUM 8.4 mg/dL (8.5-10.1); CREATININE 1.8 mg/dL (0.7-1.3); GFR 37.3; POTASSIUM 4.2 mmol/L (3.5-5.1); TOTAL BILIRUBIN 0.5 mg/dL (0.2-1.0); TOTAL PROTEIN 5.8 g/dL (6.4-8.2)
--- NOTE | 2019-01-10 10:58 | PDOC ---
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 PMH of HTN, CVA , DM2 Pt was seen and examined this morning resting on toilet upon examination Reports 2-3 bouts of diarrhea for the last few days Discussed with RN Discussed discharge plans, hope to D/C to SNF in the next few days Vitals Vitals Vital Signs Date Time Temp Pulse Resp B/P (MAP) Pulse Ox O2 Delivery O2 Flow Rate FiO2 01/10/19 08:24 84 115/53 01/10/19 08:00 Room Air 01/10/19 07:20 97.7 20 96 97.7 01/09/19 08:00 2.0 Physical Exam General: Alert, Oriented X3, Cooperative, No acute distress Heart: Regular rate, Normal S1, Normal S2, No murmurs Lungs: Clear Abdomen: Soft, No tenderness Extremities: No clubbing, No cyanosis, Other (R foot with bandage CDI, L foot with bandage on dorsal aspect of MCP joint) Skin: Other (R groin surgical access site has a clean/dry/intact dressing ) Labs LABS Laboratory Tests Test 01/09/19 13:20 01/09/19 16:35 01/09/19 20:43 01/10/19 07:35 Glucose (Fingerstick) 162 mg/dL (70-99) 162 mg/dL (70-99) 109 mg/dL (70-99) White Blood Count 6.5 x10^3/uL (4.0-11.0) Red Blood Count 2.57 x10^6/uL (4.30-5.70) Hemoglobin 7.6 g/dL (13.0-17.5) Hematocrit 23.2 % (39.0-53.0) Mean Corpuscular Volume 90 fL (79-100) Mean Corpuscular Hemoglobin 30 pg (25-35) Mean Corpuscular Hemoglobin Concent 33 g/dL (31-37) Red Cell Distribution Width 13.9 % (11.5-14.5) Platelet Count 130 x10^3/uL (140-400) Neutrophils (%) (Auto) 64 % (31-73) Lymphocytes (%) (Auto) 19 % (24-48) Monocytes (%) (Auto) 8 % (0-9) Eosinophils (%) (Auto) 8 % (0-3) Basophils (%) (Auto) 1 % (0-3) Neutrophils # (Auto) 4.1 x10^3uL (1.8-7.7) Lymphocytes # (Auto) 1.2 x10^3/uL (1.0-4.8) Monocytes # (Auto) 0.5 x10^3/uL (0.0-1.1) Eosinophils # (Auto) 0.5 x10^3/uL (0.0-0.7) Basophils # (Auto) 0.1 x10^3/uL (0.0-0.2) Test 01/10/19 07:55 01/10/19 07:59 Sodium Level 144 mmol/L (136-145) Potassium Level 4.2 mmol/L (3.5-5.1) Chloride Level 106 mmol/L (98-107) Carbon Dioxide Level 26 mmol/L (21-32) Anion Gap 12 (6-14) Blood Urea Nitrogen 21 mg/dL (8-26) Creatinine 1.8 mg/dL (0.7-1.3) Estimated GFR (Cockcroft-Gault) 37.3 BUN/Creatinine Ratio 12 (6-20) Glucose Level 91 mg/dL (70-99) Calcium Level 8.4 mg/dL (8.5-10.1) Total Bilirubin 0.5 mg/dL (0.2-1.0) Aspartate Amino Transf (AST/SGOT) 23 U/L (15-37) Alanine Aminotransferase (ALT/SGPT) 20 U/L (16-63) Alkaline Phosphatase 85 U/L (46-116) Total Protein 5.8 g/dL (6.4-8.2) Albumin 2.0 g/dL (3.4-5.0) Albumin/Globulin Ratio 0.5 (1.0-1.7) Glucose (Fingerstick) 82 mg/dL (70-99) Review of Systems Review of Systems Pt reports diarrhea, some weakness Pt denies CP, SOB, n/v Assessment and Plan Assessmemt and Plan dry gangrene, ischemic toes, atherosclerosis of [place] arteries of right leg with gangrene of all toes --> s/ p perc revascularization 01/02/19 --> 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 severe peripheral vascular disease Anemia DM2 prior CVA vasculopathy his family had stopped his aspirin and substituted tylenol obese- BMI 33 Plan Anemia- Hgb 7.4, has been steadily decreasing the last 3 days, will monitor if transfusion required Abx per ID Hope to D/C in the next few days if stable May need PICC line for half-way ABx treatment Wound care LLE US- negative K replacement as needed insulin Cardiac monitoring PT/OT Frequent Labs appreciate subspecialty recs D/C dispo pending- likely to SNF by early next week Comment Review of Relevant I have reviewed the following items magalie (where applicable) has been applied. Labs Laboratory Tests Test 01/08/19 11:26 01/08/19 18:02 01/08/19 20:56 01/09/19 03:00 Glucose (Fingerstick) 167 mg/dL (70-99) 146 mg/dL (70-99) 126 mg/dL (70-99) White Blood Count 6.6 x10^3/uL (4.0-11.0) Red Blood Count 2.81 x10^6/uL (4.30-5.70) Hemoglobin 8.4 g/dL (13.0-17.5) Hematocrit 25.3 % (39.0-53.0) Mean Corpuscular Volume 90 fL (79-100) Mean Corpuscular Hemoglobin 30 pg (25-35) Mean Corpuscular Hemoglobin Concent 33 g/dL (31-37) Red Cell Distribution Width 13.9 % (11.5-14.5) Platelet Count 126 x10^3/uL (140-400) Neutrophils (%) (Auto) 68 % (31-73) Lymphocytes (%) (Auto) 17 % (24-48) Monocytes (%) (Auto) 8 % (0-9) Eosinophils (%) (Auto) 6 % (0-3) Basophils (%) (Auto) 1 % (0-3) Neutrophils # (Auto) 4.5 x10^3uL (1.8-7.7) Lymphocytes # (Auto) 1.1 x10^3/uL (1.0-4.8) Monocytes # (Auto) 0.5 x10^3/uL (0.0-1.1) Eosinophils # (Auto) 0.4 x10^3/uL (0.0-0.7) Basophils # (Auto) 0.1 x10^3/uL (0.0-0.2) Sodium Level 143 mmol/L (136-145) Potassium Level 3.4 mmol/L (3.5-5.1) Chloride Level 106 mmol/L (98-107) Carbon Dioxide Level 26 mmol/L (21-32) Anion Gap 11 (6-14) Blood Urea Nitrogen 18 mg/dL (8-26) Creatinine 1.7 mg/dL (0.7-1.3) Estimated GFR (Cockcroft-Gault) 39.8 BUN/Creatinine Ratio 11 (6-20) Glucose Level 141 mg/dL (70-99) Calcium Level 8.6 mg/dL (8.5-10.1) Total Bilirubin 0.7 mg/dL (0.2-1.0) Aspartate Amino Transf (AST/SGOT) 24 U/L (15-37) Alanine Aminotransferase (ALT/SGPT) 20 U/L (16-63) Alkaline Phosphatase 76 U/L (46-116) Total Protein 6.4 g/dL (6.4-8.2) Albumin 1.9 g/dL (3.4-5.0) Albumin/Globulin Ratio 0.4 (1.0-1.7) Test 01/09/19 08:02 01/09/19 13:20 01/09/19 16:35 01/09/19 20:43 Glucose (Fingerstick) 95 mg/dL (70-99) 162 mg/dL (70-99) 162 mg/dL (70-99) 109 mg/dL (70-99) Test 01/10/19 07:35 01/10/19 07:55 01/10/19 07:59 White Blood Count 6.5 x10^3/uL (4.0-11.0) Red Blood Count 2.57 x10^6/uL (4.30-5.70) Hemoglobin 7.6 g/dL (13.0-17.5) Hematocrit 23.2 % (39.0-53.0) Mean Corpuscular Volume 90 fL (79-100) Mean Corpuscular Hemoglobin 30 pg (25-35) Mean Corpuscular Hemoglobin Concent 33 g/dL (31-37) Red Cell Distribution Width 13.9 % (11.5-14.5) Platelet Count 130 x10^3/uL (140-400) Neutrophils (%) (Auto) 64 % (31-73) Lymphocytes (%) (Auto) 19 % (24-48) Monocytes (%) (Auto) 8 % (0-9) Eosinophils (%) (Auto) 8 % (0-3) Basophils (%) (Auto) 1 % (0-3) Neutrophils # (Auto) 4.1 x10^3uL (1.8-7.7) Lymphocytes # (Auto) 1.2 x10^3/uL (1.0-4.8) Monocytes # (Auto) 0.5 x10^3/uL (0.0-1.1) Eosinophils # (Auto) 0.5 x10^3/uL (0.0-0.7) Basophils # (Auto) 0.1 x10^3/uL (0.0-0.2) Sodium Level 144 mmol/L (136-145) Potassium Level 4.2 mmol/L (3.5-5.1) Chloride Level 106 mmol/L (98-107) Carbon Dioxide Level 26 mmol/L (21-32) Anion Gap 12 (6-14) Blood Urea Nitrogen 21 mg/dL (8-26) Creatinine 1.8 mg/dL (0.7-1.3) Estimated GFR (Cockcroft-Gault) 37.3 BUN/Creatinine Ratio 12 (6-20) Glucose Level 91 mg/dL (70-99) Calcium Level 8.4 mg/dL (8.5-10.1) Total Bilirubin 0.5 mg/dL (0.2-1.0) Aspartate Amino Transf (AST/SGOT) 23 U/L (15-37) Alanine Aminotransferase (ALT/SGPT) 20 U/L (16-63) Alkaline Phosphatase 85 U/L (46-116) Total Protein 5.8 g/dL (6.4-8.2) Albumin 2.0 g/dL (3.4-5.0) Albumin/Globulin Ratio 0.5 (1.0-1.7) Glucose (Fingerstick) 82 mg/dL (70-99) Laboratory Tests Test 01/09/19 13:20 01/09/19 16:35 01/09/19 20:43 01/10/19 07:35 Glucose (Fingerstick) 162 mg/dL (70-99) 162 mg/dL (70-99) 109 mg/dL (70-99) White Blood Count 6.5 x10^3/uL (4.0-11.0) Red Blood Count 2.57 x10^6/uL (4.30-5.70) Hemoglobin 7.6 g/dL (13.0-17.5) Hematocrit 23.2 % (39.0-53.0) Mean Corpuscular Volume 90 fL (79-100) Mean Corpuscular Hemoglobin 30 pg (25-35) Mean Corpuscular Hemoglobin Concent 33 g/dL (31-37) Red Cell Distribution Width 13.9 % (11.5-14.5) Platelet Count 130 x10^3/uL (140-400) Neutrophils (%) (Auto) 64 % (31-73) Lymphocytes (%) (Auto) 19 % (24-48) Monocytes (%) (Auto) 8 % (0-9) Eosinophils (%) (Auto) 8 % (0-3) Basophils (%) (Auto) 1 % (0-3) Neutrophils # (Auto) 4.1 x10^3uL (1.8-7.7) Lymphocytes # (Auto) 1.2 x10^3/uL (1.0-4.8) Monocytes # (Auto) 0.5 x10^3/uL (0.0-1.1) Eosinophils # (Auto) 0.5 x10^3/uL (0.0-0.7) Basophils # (Auto) 0.1 x10^3/uL (0.0-0.2) Test 01/10/19 07:55 01/10/19 07:59 Sodium Level 144 mmol/L (136-145) Potassium Level 4.2 mmol/L (3.5-5.1) Chloride Level 106 mmol/L (98-107) Carbon Dioxide Level 26 mmol/L (21-32) Anion Gap 12 (6-14) Blood Urea Nitrogen 21 mg/dL (8-26) Creatinine 1.8 mg/dL (0.7-1.3) Estimated GFR (Cockcroft-Gault) 37.3 BUN/Creatinine Ratio 12 (6-20) Glucose Level 91 mg/dL (70-99) Calcium Level 8.4 mg/dL (8.5-10.1) Total Bilirubin 0.5 mg/dL (0.2-1.0) Aspartate Amino Transf (AST/SGOT) 23 U/L (15-37) Alanine Aminotransferase (ALT/SGPT) 20 U/L (16-63) Alkaline Phosphatase 85 U/L (46-116) Total Protein 5.8 g/dL (6.4-8.2) Albumin 2.0 g/dL (3.4-5.0) Albumin/Globulin Ratio 0.5 (1.0-1.7) Glucose (Fingerstick) 82 mg/dL (70-99) Medications Current Medications Insulin Human Lispro (HumaLOG) 0-9 UNITS TIDWMEALS SQ Last administered on 12/27 18:33; Start 12/27/18 at 17:00; Stop 12/28/18 at 07:59; Status DC Dextrose (Dextrose 50%-Water Syringe) 12.5 gm PRN Q15MIN PRN IV SEE COMMENTS Last administered on 01/06/19at 08:06; Start 12/27/18 at 16:45 Atorvastatin Calcium (Lipitor) 40 mg HS PO Last administered on 01/09/19at 21:54 ; Start 12/27/18 at 21:00 Metoprolol Succinate (Toprol Xl) 25 mg DAILY PO Last administered on 01/10/19at 08:24; Start 12/28/18 at 09:00 Niacin (Slo-Niacin) 500 mg HS PO Last administered on 01/09/19at 21:53; Start at 21:00 Vitamin D (Vitamin D3) 5,000 unit DAILY PO Last administered on 01/10/19 08:23 ; Start 12/28/18 at 09:00 Non-Formulary Medication (Dulaglutide (Trulicity)) 1.5 mg WEEKLY SQ ; Start 01/03 at 09:00; Status UNV Glimepiride (Amaryl) 4 mg BIDAC PO Last administered on 01/03/19 18:02; Start 12/27/18 at 18:30; Stop 01/04/19 at 07:48; Status DC Hydrochlorothiazide (Hydrodiuril) 25 mg DAILY PO Last administered on 01/03/19 09:30; Start 12/28/18 at 09:00; Stop 01/04/19 at 07:48; Status DC Insulin Glargine (Lantus) 32 units QHS SQ Last administered on 01/03/19 22:15; Start 12/27/18 at 21:00; Stop 01/04/19 at 16:05; Status DC Levothyroxine Sodium (Synthroid) 50 mcg DAILY06 PO Last administered on at 06:52; Start 12/28/18 at 06:00 Insulin Human Lispro (HumaLOG) 0-9 UNITS TIDACHC SQ Last administered on 18:18; Start 12/28/18 at 11:30 Labetalol HCl (Normodyne Iv Push) 10 mg PRN Q2HR PRN IVP HYPERTENSION, SEE COMMENTS; Start 12/28/18 at 08:00 Acetaminophen (Tylenol) 500 mg PRN Q6HRS PRN PO MILD PAIN / TEMP; Start at 08:00 Acetaminophen/ Codeine Phosphate (Tylenol #3) 1 tab PRN Q6HRS PRN PO MODERATE TO SEVERE PAIN Last administered on 01/02/19 02:15; Start 12/28/18 at 08:00 Ondansetron HCl (Zofran) 4 mg PRN Q6HRS PRN IV NAUSEA/VOMITING; Start 12/28/18 at 08:00 Ondansetron HCl (Zofran Odt) 4 mg PRN Q6HRS PRN PO NAUSEA/VOMITING; Start 12/28 at 08:00 Sodium Chloride 1,000 ml @ 75 mls/hr 1X ONCE IV Last administered on 2/25/ 19at 15:23; Start 12/28/18 at 14:30; Stop 12/29/18 at 03:49; Status DC Sodium Chloride 500 ml @ 250 mls/hr 1X ONCE IV ; Start 12/29/18 at 11:00; Stop 12/29/18 at 12:51; Status DC Influenza Virus Vaccine (Afluria Trivalent [id number] Syringe) 0.5 ml ONCE ONCE VAX IM Last administered on 01/06/19at 17:59; Start 12/29/18 at 10:00; Stop 12/29 at 10:01; Status DC Piperacillin Sod/ Tazobactam Sod (Zosyn Per Pharmacy) 1 each PRN DAILY PRN MC SEE COMMENTS; Start 12/29/18 at 11:45 Aspirin (Ecotrin) 81 mg DAILYWBKFT PO Last administered on 01/10/19at 08:23; Start 12/29/18 at 12:00 Piperacillin Sod/ Tazobactam Sod 3.375 gm/Sodium Chloride 50 ml @ 100 mls/hr Q6HRS IV Last administered on 01/10/19at 06:52; Start 12/29/18 at 12:00 Sodium Chloride 1,000 ml @ 75 mls/hr 1X ONCE IV Last administered on at 01:12; Start 12/30/18 at 00:00; Stop 12/30/18 at 13:19; Status DC Sodium Chloride 500 ml @ 250 mls/hr 1X ONCE IV Last administered on at 08:13; Start 12/30/18 at 09:30; Stop 12/30/18 at 11:29; Status DC Lactobacillus Rhamnosus (Culturelle) 1 cap BID PO Last administered on at 08:23; Start 12/29/18 at 21:00 Multivitamins (Thera M Plus) 1 tab DAILY PO Last administered on 01/10/19at 08: 24; Start 12/30/18 at 09:00 Linezolid/Dextrose 300 ml @ 300 mls/hr Q12HR IV Last administered on at 08:25; Start 12/29/18 at 15:00 Midazolam HCl (Versed) 5 mg STK-MED ONCE .ROUTE ; Start 12/30/18 at 08:07; Stop 12/30/18 at 08:08; Status DC Fentanyl Citrate (Fentanyl 2ml Vial) 100 mcg STK-MED ONCE .ROUTE ; Start at 08:07; Stop 12/30/18 at 08:08; Status DC Heparin Sodium (Porcine) (Heparin Sodium) 10,000 unit STK-MED ONCE .ROUTE ; Start 12/30/18 at 08:07; Stop 12/30/18 at 08:08; Status DC Iodixanol (Visipaque 320) 100 ml STK-MED ONCE .ROUTE ; Start 12/30/18 at 08:07; Stop 12/30/18 at 08:08; Status DC Lidocaine HCl (Lidocaine 1% 20ml Vial) 20 ml STK-MED ONCE .ROUTE ; Start at 08:07; Stop 12/30/18 at 08:08; Status DC Heparin Sodium/ Sodium Chloride 1,500 ml @ As Directed STK-MED ONCE .ROUTE ; Start 12/30/18 at 08:07; Stop 12/30/18 at 08:08; Status DC Heparin Sodium/ Sodium Chloride (HEPARIN for ARTERIAL LINE FLUSH) 1,000 unit 1X ONCE IART Last administered on 12/30/18at 10:53; Start 12/30/18 at 09:15; Stop 12/30/18 at 09:16; Status DC Midazolam HCl (Versed) 5 mg 1X ONCE IV Last administered on 12/30/18at 11:01; Start 12/30/18 at 09:15; Stop 12/30/18 at 09:16; Status DC Fentanyl Citrate (Fentanyl 2ml Vial) 100 mcg 1X ONCE IV Last administered on at 10:55; Start 12/30/18 at 09:15; Stop 12/30/18 at 09:16; Status DC Iodixanol (Visipaque 320) 100 ml 1X ONCE IART Last administered on 12/30/18at 11:01; Start 12/30/18 at 09:15; Stop 12/30/18 at 09:16; Status DC Lidocaine HCl (Lidocaine 1% 20ml Vial) 20 ml 1X ONCE INJ Last administered on 12/30/18at 11:01; Start 12/30/18 at 09:15; Stop 12/30/18 at 09:16; Status DC Iodixanol (Visipaque 320) 100 ml STK-MED ONCE .ROUTE ; Start 12/30/18 at 09:42; Stop 12/30/18 at 09:43; Status DC Heparin Sodium (Porcine) (Heparin Sodium) 6,000 unit 1X ONCE IV Last administered on 12/30/18at 11:00; Start 12/30/18 at 09:16; Stop 12/30/18 at 10:06 ; Status DC Lidocaine HCl (Lidocaine 1% 20ml Vial) 20 ml STK-MED ONCE .ROUTE ; Start at 10:06; Stop 12/30/18 at 10:07; Status DC Nitroglycerin (Nitroglycerin) 200 mcg 1X ONCE IART Last administered on at 11:01; Start 12/30/18 at 10:15; Stop 12/30/18 at 10:16; Status DC Protamine Sulfate (Protamine) 50 mg STK-MED ONCE IV ; Start 12/30/18 at 10:39; Stop 12/30/18 at 10:40; Status DC Protamine Sulfate (Protamine) 30 mg 1X ONCE IV Last administered on 12/30/18at 10:48; Start 12/30/18 at 10:48; Stop 12/30/18 at 10:58; Status DC Morphine Sulfate (Morphine Sulfate) 1 mg PRN Q10MIN PRN IV SEVERE PAIN; Start 12/31/18 at 07:00; Stop 01/01/19 at 06:59; Status DC Ringer's Solution 1,000 ml @ 30 mls/hr Q24H IV ; Start 12/31/18 at 07:00; Stop 12/31/18 at 18:59; Status DC Lidocaine HCl (Xylocaine-Mpf 1% 2ml Vial) 2 ml PRN 1X PRN ID PRIOR TO IV START ; Start 12/31/18 at 07:00; Stop 01/01/19 at 06:59; Status DC Hydromorphone HCl (Dilaudid) 0.5 mg PRN Q10MIN PRN IV SEV PAIN, Second choice; Start 12/31/18 at 07:00; Stop 01/01/19 at 06:59; Status DC Prochlorperazine Edisylate (Compazine) 5 mg PACU PRN PRN IV NAUSEA, MRX1 Last administered on 12/31/18at 09:31; Start 12/31/18 at 07:00; Stop 01/01/19 at 06:59 ; Status DC Lidocaine HCl (Xylocaine 1% Pf 30ml Vial) 30 ml STK-MED ONCE .ROUTE Last administered on 12/31/18at 07:18; Start 12/31/18 at 07:02; Stop 12/31/18 at 07:03 ; Status DC Lidocaine HCl (Xylocaine 1% Pf 30ml Vial) 30 ml STK-MED ONCE .ROUTE ; Start at 07:02; Stop 12/31/18 at 07:03; Status DC Bupivacaine HCl (Sensorcaine Mpf 0.5%) 30 ml STK-MED ONCE .ROUTE Last administered on 12/31/18at 07:18; Start 12/31/18 at 07:02; Stop 12/31/18 at 07:03 ; Status DC Ondansetron HCl (Zofran) 4 mg STK-MED ONCE .ROUTE ; Start 12/31/18 at 07:05; Stop 12/31/18 at 07:06; Status DC Lidocaine HCl (Lidocaine Pf 2% Vial) 5 ml STK-MED ONCE .ROUTE ; Start 12/31/18 at 07:05; Stop 12/31/18 at 07:06; Status DC Propofol 20 ml @ As Directed STK-MED ONCE IV ; Start 12/31/18 at 07:05; Stop at 07:06; Status DC Famotidine (Pepcid Vial) 20 mg STK-MED ONCE .ROUTE ; Start 12/31/18 at 07:05; Stop 12/31/18 at 07:06; Status DC Dexamethasone Sodium Phosphate (Decadron) 20 mg STK-MED ONCE .ROUTE ; Start at 07:05; Stop 12/31/18 at 07:06; Status Cancel Fentanyl Citrate (Fentanyl 2ml Vial) 100 mcg STK-MED ONCE .ROUTE ; Start at 07:06; Stop 12/31/18 at 07:07; Status DC Desflurane (Suprane) 60 ml STK-MED ONCE IH ; Start 12/31/18 at 08:45; Stop 12/31 at 08:46; Status DC Prochlorperazine Edisylate (Compazine) 10 mg STK-MED ONCE .ROUTE ; Start at 08:57; Stop 12/31/18 at 08:58; Status DC Ondansetron HCl (Zofran) 4 mg STK-MED ONCE .ROUTE ; Start 12/31/18 at 09:39; Stop 12/31/18 at 09:40; Status DC Sodium Chloride 1,000 ml @ 100 mls/hr Q10H IV ; Start 01/03/19 at 12:00; Stop at 12:00; Status DC Lorazepam (Ativan) 0.5 mg PRN Q6HRS PRN PO ANXIETY / AGITATION Last administered on 01/07/19at 20:18; Start 01/01/19 at 23:00 Clopidogrel Bisulfate (Plavix) 75 mg DAILYWBKFT PO Last administered on at 08:00; Start 01/02/19 at 14:00 Sodium Chloride 1,000 ml @ 75 mls/hr [id number] IV Last administered on 01/04/19at 18:16; Start 01/03/19 at 12:00; Stop 01/05/19 at 18:17; Status DC Potassium Chloride (Klor-Con) 20 meq 1X ONCE PO ; Start 01/04/19 at 08:30; Stop 01/04/19 at 08:31; Status DC Lidocaine HCl (Lidocaine 1% 20ml Vial) 20 ml STK-MED ONCE .ROUTE ; Start at 14:40; Stop 01/04/19 at 14:41; Status DC Heparin Sodium/ Sodium Chloride 500 ml @ As Directed STK-MED ONCE .ROUTE ; Start 01/04/19 at 14:40; Stop 01/04/19 at 14:41; Status DC Midazolam HCl (Versed) 5 mg STK-MED ONCE .ROUTE ; Start 01/04/19 at 14:44; Stop 01/04/19 at 14:45; Status DC Fentanyl Citrate (Fentanyl 2ml Vial) 100 mcg STK-MED ONCE .ROUTE ; Start at 14:45; Stop 01/04/19 at 14:46; Status DC Heparin Sodium (Porcine) (Heparin Sodium) 10,000 unit STK-MED ONCE .ROUTE ; Start 01/04/19 at 14:45; Stop 01/04/19 at 14:46; Status DC Heparin Sodium/ Sodium Chloride (HEPARIN for ARTERIAL LINE FLUSH) 1,000 unit 1X ONCE IART Last administered on 01/04/19 15:30; Start 01/04/19 at 15:30; Stop 01/04/19 at 15:38; Status DC Midazolam HCl (Versed) 5 mg 1X ONCE IV Last administered on 01/04/19 15:30; Start 01/04/19 at 15:30; Stop 01/04/19 at 15:38; Status DC Fentanyl Citrate (Fentanyl 2ml Vial) 100 mcg 1X ONCE IV Last administered on 15:30; Start 01/04/19 at 15:30; Stop 01/04/19 at 15:38; Status DC Iodixanol (Visipaque 320) 100 ml 1X ONCE IART ; Start 01/04/19 at 15:30; Stop at 15:56; Status DC Heparin Sodium (Porcine) (Heparin Sodium) 5,000 unit 1X ONCE IV Last administered on 01/04/19 15:30; Start 01/04/19 at 15:30; Stop 01/04/19 at 15:39; Status DC Lidocaine HCl (Lidocaine 1% 20ml Vial) 20 ml 1X ONCE INJ Last administered on 01/04/19 15:30; Start 01/04/19 at 15:30; Stop 01/04/19 at 15:39; Status DC Insulin Glargine (Lantus) 18 units QHS SQ Last administered on 01/09/19 22:16; Start 01/04/19 at 21:00 Iodixanol (Visipaque 320) 100 ml 1X ONCE IART Last administered on 01/04/19 16 :30; Start 01/04/19 at 16:30; Stop 01/04/19 at 16:31; Status DC Info (CONTRAST GIVEN -- Rx MONITORING) 1 each PRN DAILY PRN MC SEE COMMENTS; Start 01/04/19 at 16:30; Stop 01/06/19 at 16:29; Status DC Albuterol/ Ipratropium (Duoneb) 3 ml RTQID NEB ; Start 01/05/19 at 08:00; Stop at 08:00; Status DC Amlodipine Besylate (Norvasc) 5 mg DAILY PO Last administered on 01/10/19at 08: 24; Start 01/05/19 at 10:30 Sodium Chloride 1,000 ml @ 75 mls/hr [id number] IV Last administered on 01/09/19at 12:40; Start 01/06/19 at 18:00 Potassium Chloride (Klor-Con) 40 meq 1X ONCE PO Last administered on 01/06/19at 12:50; Start 01/06/19 at 11:30; Stop 01/06/19 at 11:37; Status DC Tamsulosin HCl (Flomax) 0.4 mg QHS PO Last administered on 01/09/19at 21:53; Start 01/06/19 at 21:00 Iodixanol (Visipaque 320) 100 ml STK-MED ONCE .ROUTE ; Start 01/07/19 at 07:40; Stop 01/07/19 at 07:41; Status DC Lidocaine HCl (Lidocaine 1% 20ml Vial) 20 ml STK-MED ONCE .ROUTE ; Start at 07:40; Stop 01/07/19 at 07:41; Status DC Heparin Sodium/ Sodium Chloride 1,500 ml @ As Directed STK-MED ONCE .ROUTE ; Start 01/07/19 at 07:40; Stop 01/07/19 at 07:41; Status DC Midazolam HCl (Versed) 2 mg STK-MED ONCE .ROUTE ; Start 01/07/19 at 09:35; Stop 01/07/19 at 09:36; Status DC Fentanyl Citrate (Fentanyl 2ml Vial) 100 mcg STK-MED ONCE .ROUTE ; Start at 09:35; Stop 01/07/19 at 09:36; Status DC Verapamil HCl (Verapamil) 5 mg STK-MED ONCE .ROUTE ; Start 01/07/19 at 09:58; Stop 01/07/19 at 09:59; Status DC Heparin Sodium (Porcine) (Heparin Sodium) 10,000 unit STK-MED ONCE .ROUTE ; Start 01/07/19 at 09:58; Stop 01/07/19 at 09:59; Status DC Nitroglycerin (Nitroglycerin) 200 mcg STK-MED ONCE .ROUTE ; Start 01/07/19 at 09: 58; Stop 01/07/19 at 09:59; Status DC Nitroglycerin (Nitroglycerin) 200 mcg 1X ONCE IART Last administered on 3/7/ 19at 12:44; Start 01/07/19 at 11:30; Stop 01/07/19 at 11:32; Status DC Verapamil HCl (Verapamil) 2.5 mg 1X ONCE IART ; Start 01/07/19 at 11:30; Stop at 12:34; Status DC Heparin Sodium (Porcine) (Heparin Sodium) 2,500 unit 1X ONCE IART ; Start at 11:30; Stop 01/07/19 at 12:34; Status DC Heparin Sodium/ Sodium Chloride (HEPARIN for ARTERIAL LINE FLUSH) 1,000 unit 1X ONCE IART Last administered on 01/07/19 12:43; Start 01/07/19 at 11:30; Stop 01/07/19 at 11:32; Status DC Heparin Sodium/ Sodium Chloride (HEPARIN for ARTERIAL LINE FLUSH) 1,000 unit 1X ONCE IART Last administered on 01/07/19 12:44; Start 01/07/19 at 11:30; Stop 01/07/19 at 11:32; Status DC Midazolam HCl (Versed) 2 mg 1X ONCE IV Last administered on 01/07/19 12:45; Start 01/07/19 at 11:30; Stop 01/07/19 at 11:32; Status DC Fentanyl Citrate (Fentanyl 2ml Vial) 100 mcg 1X ONCE IV Last administered on 12:45; Start 01/07/19 at 11:30; Stop 01/07/19 at 11:32; Status DC Iodixanol (Visipaque 320) 100 ml 1X ONCE IART Last administered on 01/07/19 12 :46; Start 01/07/19 at 11:30; Stop 01/07/19 at 11:32; Status DC Heparin Sodium (Porcine) (Heparin Sodium) 6,000 unit 1X ONCE IV Last administered on 01/07/19 12:46; Start 01/07/19 at 11:30; Stop 01/07/19 at 11:32; Status DC Lidocaine HCl (Lidocaine 1% 20ml Vial) 20 ml 1X ONCE INJ Last administered on 01/07/19 12:44; Start 01/07/19 at 11:30; Stop 01/07/19 at 11:32; Status DC Midazolam HCl (Versed) 2 mg STK-MED ONCE .ROUTE ; Start 01/07/19 at 12:00; Stop 01/07/19 at 12:01; Status DC Fentanyl Citrate (Fentanyl 2ml Vial) 100 mcg STK-MED ONCE .ROUTE ; Start at 12:01; Stop 01/07/19 at 12:02; Status DC Nitroglycerin (Nitroglycerin) 200 mcg STK-MED ONCE .ROUTE ; Start 01/07/19 at 12: 26; Stop 01/07/19 at 12:27; Status DC Protamine Sulfate (Protamine) 50 mg STK-MED ONCE IV ; Start 01/07/19 at 12:28; Stop 01/07/19 at 12:29; Status DC Protamine Sulfate (Protamine) 30 mg 1X ONCE IV Last administered on 01/07/19at 12:45; Start 01/07/19 at 12:45; Stop 01/07/19 at 12:46; Status DC Sodium Chloride 1,000 ml @ 150 mls/hr [id number] IV Last administered on 01/08/19at 05:54; Start 01/07/19 at 13:15; Stop 01/08/19 at 09:00; Status DC Potassium Chloride (Klor-Con) 40 meq 1X ONCE PO Last administered on 01/09/19at 11:35; Start 01/09/19 at 11:15; Stop 01/09/19 at 11:16; Status DC Active Scripts Active Reported Niaspan (Niacin) 500 Mg Tab.er.24h 500 Mg PO HS Hydrochlorothiazide Tablet (Hydrochlorothiazide) 12.5 Mg Tablet 25 Mg PO DAILY Metoprolol Succinate ( Xl ) (Metoprolol Succinate) 25 Mg Tab.er.24h 25 Mg PO DAILY Lipitor (Atorvastatin Calcium) 40 Mg Tablet 40 Mg PO HS Trulicity (Dulaglutide) 1.5 Mg/0.5 Ml Pen.injctr 1.5 Mg SQ WEEKLY Toujeo Solostar (Insulin Glargine,Hum.rec.anlog) 300 Unit/1 Ml Insuln.pen 40 Unit SQ HS Aspirin 81 Mg Tab.chew 81 Mg PO BID Glimepiride 4 Mg Tablet 4 Mg PO BIDAC Synthroid (Levothyroxine Sodium) 50 Mcg Tablet 50 Mcg PO DAILYAC Vitamin D3 (Cholecalciferol (Vitamin D3)) 5,000 Unit Tablet 5,000 Unit PO DAILY Vitals/I & O Vital Sign - Last 24 Hours 01/09/19 01/09/19 01/09/19 01/09/19 11:27 11:27 15:00 19:41 Temp 97.7 97.7 Pulse 72 72 80 87 Resp 20 18 B/P (MAP) 115/55 115/55 137/63 (87) 118/57 (77) Pulse Ox 98 95 O2 Delivery Room Air Room Air 01/09/19 01/09/19 01/10/19 01/10/19 20:30 23:13 03:40 07:20 Temp 97.9 97.7 97.7 97.9 97.7 97.7 Pulse 87 89 84 Resp 18 20 20 B/P (MAP) 122/64 (83) 131/56 (81) 115/53 (73) Pulse Ox 97 99 96 O2 Delivery Room Air Room Air Room Air Room Air 01/10/19 01/10/19 01/10/19 08:00 08:24 08:24 Pulse 84 84 B/P (MAP) 115/53 115/53 O2 Delivery Room Air Intake and Output 01/09/19 01/09/19 01/10/19 14:59 22:59 06:59 Intake Total 990 ml 120 ml Output Total 201 ml Balance 789 ml 120 ml PATIENCE ACUÑA III DO Jan 10, 2019 10:58
[2019-01-10 11:22] VITALS: BP 135/60
--- NOTE | 2019-01-10 11:54 | PDOC ---
Infectious Disease Note Subjective Subjective Feeling alright + diarrhea, no cramps/bloating/N/V No F/C/S/pain ROS ROS per HPI Vital Sign Vital Signs Vital Signs Date Time Temp Pulse Resp B/P (MAP) Pulse Ox O2 Delivery O2 Flow Rate FiO2 01/10/19 11:22 97.7 88 16 135/60 (85) 96 Room Air 2.0 97.7 Physical Exam PHYSICAL EXAM GENERAL: Sitting in the chair, sleeping HEENT: Oral cavity clear NECK: Supple LUNGS: Clear. HEART: S1, S2 ABDOMEN: Obese, soft, NT, BS present EXTREMITIES: 2-3 + edema BLE. Right foot bandaged NEUROLOGIC: Arouses to name, responds appropriately PIV ok Labs Lab Laboratory Tests Test 01/09/19 13:20 01/09/19 16:35 01/09/19 20:43 01/10/19 07:35 Glucose (Fingerstick) 162 mg/dL (70-99) 162 mg/dL (70-99) 109 mg/dL (70-99) White Blood Count 6.5 x10^3/uL (4.0-11.0) Red Blood Count 2.57 x10^6/uL (4.30-5.70) Hemoglobin 7.6 g/dL (13.0-17.5) Hematocrit 23.2 % (39.0-53.0) Mean Corpuscular Volume 90 fL (79-100) Mean Corpuscular Hemoglobin 30 pg (25-35) Mean Corpuscular Hemoglobin Concent 33 g/dL (31-37) Red Cell Distribution Width 13.9 % (11.5-14.5) Platelet Count 130 x10^3/uL (140-400) Neutrophils (%) (Auto) 64 % (31-73) Lymphocytes (%) (Auto) 19 % (24-48) Monocytes (%) (Auto) 8 % (0-9) Eosinophils (%) (Auto) 8 % (0-3) Basophils (%) (Auto) 1 % (0-3) Neutrophils # (Auto) 4.1 x10^3uL (1.8-7.7) Lymphocytes # (Auto) 1.2 x10^3/uL (1.0-4.8) Monocytes # (Auto) 0.5 x10^3/uL (0.0-1.1) Eosinophils # (Auto) 0.5 x10^3/uL (0.0-0.7) Basophils # (Auto) 0.1 x10^3/uL (0.0-0.2) Test 01/10/19 07:55 01/10/19 07:59 01/10/19 11:27 01/10/19 11:45 Sodium Level 144 mmol/L (136-145) Potassium Level 4.2 mmol/L (3.5-5.1) Chloride Level 106 mmol/L (98-107) Carbon Dioxide Level 26 mmol/L (21-32) Anion Gap 12 (6-14) Blood Urea Nitrogen 21 mg/dL (8-26) Creatinine 1.8 mg/dL (0.7-1.3) Estimated GFR (Cockcroft-Gault) 37.3 BUN/Creatinine Ratio 12 (6-20) Glucose Level 91 mg/dL (70-99) Calcium Level 8.4 mg/dL (8.5-10.1) Total Bilirubin 0.5 mg/dL (0.2-1.0) Aspartate Amino Transf (AST/SGOT) 23 U/L (15-37) Alanine Aminotransferase (ALT/SGPT) 20 U/L (16-63) Alkaline Phosphatase 85 U/L (46-116) Total Protein 5.8 g/dL (6.4-8.2) Albumin 2.0 g/dL (3.4-5.0) Albumin/Globulin Ratio 0.5 (1.0-1.7) Glucose (Fingerstick) 82 mg/dL (70-99) 167 mg/dL (70-99) 160 mg/dL (70-99) Objective Assessment Right foot cellulitis. Right foot all toes gangrene. s/p right leg angioplasty and TMA w/ primary closure on 12/31. no cultures Left big toe ulcer s/p debridement to level of bone and tendon on 12/31. no cultures PAD s/p left SFA angioplasty and left peroneal artery, angioplasty, 01/04 -s/p angioplasty of left Anterior tibial artery,, left peroneal artery, Leukocytosis - improved Diabetes. Coronary artery disease. Renal insufficiency. Diarrhea C diff neg Thrombocytopenia Plan Plan of Care Zyvox, Zosyn - for now Monitor labs PICC line placement Probiotics Wound care Supportive care Patient seen, examined, I agree with above. Assessment and plan was formulated with [employer]. PAUL CRAIG APRN Jan 10, 2019 11:54 JESSA CALLAHAN MD Jan 10, 2019 14:33
[2019-01-10 15:15] VITALS: BP 113/54
[2019-01-10 19:45] VITALS: BP 115/51
[2019-01-10] MEDS: ATORVASTATIN CALCIUM 40 MG TABLET. PO SCH (22:34)
[2019-01-10] MEDS: TAMSULOSIN 0.4 MG CAP.ER.24H. PO SCH (22:34)
[2019-01-10] MEDS: NIACIN ER 500 MG TABLET.ER PO SCH (22:34)
[2019-01-10] MEDS: INSULIN GLARGINE 300 UNITS/3 ML INSULN.PEN. SQ SCH (22:45)
[2019-01-10 23:04] VITALS: BP 129/54
[2019-01-11] MEDS: PIPERACILLIN/TAZOBACTAM 3.375 GM in IV NORMAL SALINE 50ML 50 ML IV SCH ×3 (01:02→12:09)
[2019-01-11 02:12] VITALS: BP 122/47
[2019-01-11 04:11] LABS: BASO # 0.1 x10^3/uL (0.0-0.2); BASO % 1 % (0-3); EOS # 0.6 x10^3/uL (0.0-0.7); EOS % 8 % (0-3); HEMATOCRIT 22.8 % (39.0-53.0); HEMOGLOBIN 7.5 g/dL (13.0-17.5); LYMPH # 1.1 x10^3/uL (1.0-4.8); LYMPH % 17 % (24-48); MEAN CORPUSCULAR HEMOGLOBIN 30 pg (25-35); MEAN CORPUSCULAR HGB CONC 33 g/dL (31-37); MEAN CORPUSCULAR VOLUME 90 fL (79-100); MONO # 0.4 x10^3/uL (0.0-1.1); MONO % 6 % (0-9); NEUT # 4.5 x10^3uL (1.8-7.7); NEUT % 68 % (31-73); PLATELET COUNT 131 x10^3/uL (140-400); RED BLOOD COUNT 2.54 x10^6/uL (4.30-5.70); RED CELL DISTRIBUTION WIDTH 13.7 % (11.5-14.5); WHITE BLOOD COUNT 6.7 x10^3/uL (4.0-11.0)
[2019-01-11] MEDS: IV NORMAL SALINE 1000ML BAG 1,000 ML IV SCH (04:40)
[2019-01-11 05:02] LABS: ALBUMIN/GLOBULIN RATIO 0.4 (1.0-1.7); CALCIUM 8.7 mg/dL (8.5-10.1); CREATININE 1.7 mg/dL (0.7-1.3); GFR 39.8; POTASSIUM 3.9 mmol/L (3.5-5.1); TOTAL BILIRUBIN 0.8 mg/dL (0.2-1.0); TOTAL PROTEIN 6.6 g/dL (6.4-8.2)
[2019-01-11] MEDS: LEVOTHYROXINE 50 MCG TABLET PO SCH (06:34)
[2019-01-11 07:00] VITALS: BP 101/63
[2019-01-11] MEDS: INSULIN LISPRO 300 UNITS/3 ML INSULN.PEN. SQ SCH ×2 (07:30→11:30)
--- NOTE | 2019-01-11 08:15 | PDOC ---
Infectious Disease Note Subjective Subjective Feeling alright Some loose stool - better, no cramps/bloating/N/V No F/C/S/pain/SOA/Rash ROS ROS o/w neg Vital Sign Vital Signs Vital Signs Date Time Temp Pulse Resp B/P (MAP) Pulse Ox O2 Delivery O2 Flow Rate FiO2 01/11/19 07:00 97.4 85 18 101/63 (76) 98 Room Air 97.4 01/10/19 11:22 2.0 Physical Exam PHYSICAL EXAM GENERAL: Sitting in the chair, NAD - alert HEENT: Oral cavity clear - nml vitor NECK: Supple LUNGS: Clear. HEART: S1, S2 ABDOMEN: Obese, soft, NT, BS present EXTREMITIES: 2 + edema BLE. Right foot bandaged Left toe dressed NEUROLOGIC: Moves all ext. responds appropriately PIV ok Labs Lab Laboratory Tests Test 01/10/19 11:27 01/10/19 11:45 01/10/19 16:17 01/10/19 20:51 Glucose (Fingerstick) 167 mg/dL (70-99) 160 mg/dL (70-99) 141 mg/dL (70-99) 165 mg/dL (70-99) Test 01/11/19 03:45 01/11/19 07:17 White Blood Count 6.7 x10^3/uL (4.0-11.0) Red Blood Count 2.54 x10^6/uL (4.30-5.70) Hemoglobin 7.5 g/dL (13.0-17.5) Hematocrit 22.8 % (39.0-53.0) Mean Corpuscular Volume 90 fL (79-100) Mean Corpuscular Hemoglobin 30 pg (25-35) Mean Corpuscular Hemoglobin Concent 33 g/dL (31-37) Red Cell Distribution Width 13.7 % (11.5-14.5) Platelet Count 131 x10^3/uL (140-400) Neutrophils (%) (Auto) 68 % (31-73) Lymphocytes (%) (Auto) 17 % (24-48) Monocytes (%) (Auto) 6 % (0-9) Eosinophils (%) (Auto) 8 % (0-3) Basophils (%) (Auto) 1 % (0-3) Neutrophils # (Auto) 4.5 x10^3uL (1.8-7.7) Lymphocytes # (Auto) 1.1 x10^3/uL (1.0-4.8) Monocytes # (Auto) 0.4 x10^3/uL (0.0-1.1) Eosinophils # (Auto) 0.6 x10^3/uL (0.0-0.7) Basophils # (Auto) 0.1 x10^3/uL (0.0-0.2) Sodium Level 142 mmol/L (136-145) Potassium Level 3.9 mmol/L (3.5-5.1) Chloride Level 105 mmol/L (98-107) Carbon Dioxide Level 24 mmol/L (21-32) Anion Gap 13 (6-14) Blood Urea Nitrogen 21 mg/dL (8-26) Creatinine 1.7 mg/dL (0.7-1.3) Estimated GFR (Cockcroft-Gault) 39.8 BUN/Creatinine Ratio 12 (6-20) Glucose Level 95 mg/dL (70-99) Calcium Level 8.7 mg/dL (8.5-10.1) Total Bilirubin 0.8 mg/dL (0.2-1.0) Aspartate Amino Transf (AST/SGOT) 22 U/L (15-37) Alanine Aminotransferase (ALT/SGPT) 18 U/L (16-63) Alkaline Phosphatase 84 U/L (46-116) Total Protein 6.6 g/dL (6.4-8.2) Albumin 2.0 g/dL (3.4-5.0) Albumin/Globulin Ratio 0.4 (1.0-1.7) Glucose (Fingerstick) 77 mg/dL (70-99) Objective Assessment Right foot cellulitis. Right foot all toes gangrene. s/p right leg angioplasty and TMA w/ primary closure on 12/31. no cultures Left big toe ulcer s/p debridement to level of bone and tendon on 12/31. no cultures PAD s/p left SFA angioplasty and left peroneal artery, angioplasty, 01/04 -s/p angioplasty of left Anterior tibial artery,, left peroneal artery, Leukocytosis - improved Diabetes. Coronary artery disease. Renal insufficiency. Diarrhea C diff neg Thrombocytopenia - better Plan Plan of Care Cont Zosyn - - d/c Zyvox Monitor labs PICC line placement - pending Probiotics Wound care Supportive care ERICA FRARAR MD Jan 11, 2019 08:15
[2019-01-11] MEDS: CHOLECALCIFEROL (VITAMIN D3) 5,000 UNIT CAPSULE PO SCH (08:49)
[2019-01-11] MEDS: LACTOBACILLUS RHAMNOSUS GG 1 CAPSULE. PO SCH (08:49)
[2019-01-11] MEDS: MULTIVITAMIN with MINERAL TABLET. PO SCH (08:49)
[2019-01-11] MEDS: amLODIPine BESYLATE 5 MG TABLET PO SCH (08:49)
[2019-01-11] MEDS: CLOPIDOGREL BISULFATE 75 MG TABLET PO SCH (08:50)
[2019-01-11] MEDS: METOPROLOL SUCC 24HR ER 25 MG TAB.ER.24H. PO SCH (08:50)
[2019-01-11] MEDS: ASPIRIN ENTERIC COATED 81 MG TABLET.DR. PO SCH (08:50)
--- NOTE | 2019-01-11 10:46 | NUR ---
SS following up with discharge planning. Insurance authorization received for [facility]. SS awaiting discharge orders from physician. Physician and pt's RN notified.
--- NOTE | 2019-01-11 11:03 | PDOC ---
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 PMH of HTN, CVA , DM2 Pt was seen and examined this morning s/p RLE percutaneous revascularization and right trans-met amputation LEFT LE percutaneous revascularization and left great toe wound ulceration Reports 2-3 bouts of diarrhea for the last few days Discussed with RN Discussed discharge plans, hope to D/C to SNF TODAY D/C PLANNING TIME 36 MIN Vitals Vitals Vital Signs Date Time Temp Pulse Resp B/P (MAP) Pulse Ox O2 Delivery O2 Flow Rate FiO2 01/11/19 08:50 85 101/63 01/11/19 07:00 97.4 18 98 Room Air 97.4 01/10/19 11:22 2.0 Physical Exam Physical Exam GENERAL: Sitting in the chair, NAD - alert HEENT: Oral cavity clear - nml vitor NECK: Supple LUNGS: Clear. HEART: S1, S2 ABDOMEN: Obese, soft, NT, BS present EXTREMITIES: 2 + edema BLE. Right foot bandaged Left toe dressed NEUROLOGIC: Moves all ext. responds appropriately PIV ok General: Alert, Oriented X3, Cooperative, No acute distress Heart: Regular rate, Normal S1, Normal S2, No murmurs Lungs: Clear Abdomen: Soft, No tenderness Extremities: No clubbing, No cyanosis, Other (R foot with bandage CDI, L foot with bandage on dorsal aspect of MCP joint) Skin: Other (R groin surgical access site has a clean/dry/intact dressing ) Labs LABS Laboratory Tests Test 01/10/19 11:27 01/10/19 11:45 01/10/19 16:17 01/10/19 20:51 Glucose (Fingerstick) 167 mg/dL (70-99) 160 mg/dL (70-99) 141 mg/dL (70-99) 165 mg/dL (70-99) Test 01/11/19 03:45 01/11/19 07:17 White Blood Count 6.7 x10^3/uL (4.0-11.0) Red Blood Count 2.54 x10^6/uL (4.30-5.70) Hemoglobin 7.5 g/dL (13.0-17.5) Hematocrit 22.8 % (39.0-53.0) Mean Corpuscular Volume 90 fL (79-100) Mean Corpuscular Hemoglobin 30 pg (25-35) Mean Corpuscular Hemoglobin Concent 33 g/dL (31-37) Red Cell Distribution Width 13.7 % (11.5-14.5) Platelet Count 131 x10^3/uL (140-400) Neutrophils (%) (Auto) 68 % (31-73) Lymphocytes (%) (Auto) 17 % (24-48) Monocytes (%) (Auto) 6 % (0-9) Eosinophils (%) (Auto) 8 % (0-3) Basophils (%) (Auto) 1 % (0-3) Neutrophils # (Auto) 4.5 x10^3uL (1.8-7.7) Lymphocytes # (Auto) 1.1 x10^3/uL (1.0-4.8) Monocytes # (Auto) 0.4 x10^3/uL (0.0-1.1) Eosinophils # (Auto) 0.6 x10^3/uL (0.0-0.7) Basophils # (Auto) 0.1 x10^3/uL (0.0-0.2) Sodium Level 142 mmol/L (136-145) Potassium Level 3.9 mmol/L (3.5-5.1) Chloride Level 105 mmol/L (98-107) Carbon Dioxide Level 24 mmol/L (21-32) Anion Gap 13 (6-14) Blood Urea Nitrogen 21 mg/dL (8-26) Creatinine 1.7 mg/dL (0.7-1.3) Estimated GFR (Cockcroft-Gault) 39.8 BUN/Creatinine Ratio 12 (6-20) Glucose Level 95 mg/dL (70-99) Calcium Level 8.7 mg/dL (8.5-10.1) Total Bilirubin 0.8 mg/dL (0.2-1.0) Aspartate Amino Transf (AST/SGOT) 22 U/L (15-37) Alanine Aminotransferase (ALT/SGPT) 18 U/L (16-63) Alkaline Phosphatase 84 U/L (46-116) Total Protein 6.6 g/dL (6.4-8.2) Albumin 2.0 g/dL (3.4-5.0) Albumin/Globulin Ratio 0.4 (1.0-1.7) Glucose (Fingerstick) 77 mg/dL (70-99) Comment Review of Relevant I have reviewed the following items magalie (where applicable) has been applied. Labs Laboratory Tests Test 01/09/19 13:20 01/09/19 16:35 01/09/19 20:43 01/10/19 07:35 Glucose (Fingerstick) 162 mg/dL (70-99) 162 mg/dL (70-99) 109 mg/dL (70-99) White Blood Count 6.5 x10^3/uL (4.0-11.0) Red Blood Count 2.57 x10^6/uL (4.30-5.70) Hemoglobin 7.6 g/dL (13.0-17.5) Hematocrit 23.2 % (39.0-53.0) Mean Corpuscular Volume 90 fL (79-100) Mean Corpuscular Hemoglobin 30 pg (25-35) Mean Corpuscular Hemoglobin Concent 33 g/dL (31-37) Red Cell Distribution Width 13.9 % (11.5-14.5) Platelet Count 130 x10^3/uL (140-400) Neutrophils (%) (Auto) 64 % (31-73) Lymphocytes (%) (Auto) 19 % (24-48) Monocytes (%) (Auto) 8 % (0-9) Eosinophils (%) (Auto) 8 % (0-3) Basophils (%) (Auto) 1 % (0-3) Neutrophils # (Auto) 4.1 x10^3uL (1.8-7.7) Lymphocytes # (Auto) 1.2 x10^3/uL (1.0-4.8) Monocytes # (Auto) 0.5 x10^3/uL (0.0-1.1) Eosinophils # (Auto) 0.5 x10^3/uL (0.0-0.7) Basophils # (Auto) 0.1 x10^3/uL (0.0-0.2) Test 01/10/19 07:55 01/10/19 07:59 01/10/19 11:27 01/10/19 11:45 Sodium Level 144 mmol/L (136-145) Potassium Level 4.2 mmol/L (3.5-5.1) Chloride Level 106 mmol/L (98-107) Carbon Dioxide Level 26 mmol/L (21-32) Anion Gap 12 (6-14) Blood Urea Nitrogen 21 mg/dL (8-26) Creatinine 1.8 mg/dL (0.7-1.3) Estimated GFR (Cockcroft-Gault) 37.3 BUN/Creatinine Ratio 12 (6-20) Glucose Level 91 mg/dL (70-99) Calcium Level 8.4 mg/dL (8.5-10.1) Total Bilirubin 0.5 mg/dL (0.2-1.0) Aspartate Amino Transf (AST/SGOT) 23 U/L (15-37) Alanine Aminotransferase (ALT/SGPT) 20 U/L (16-63) Alkaline Phosphatase 85 U/L (46-116) Total Protein 5.8 g/dL (6.4-8.2) Albumin 2.0 g/dL (3.4-5.0) Albumin/Globulin Ratio 0.5 (1.0-1.7) Glucose (Fingerstick) 82 mg/dL (70-99) 167 mg/dL (70-99) 160 mg/dL (70-99) Test 01/10/19 16:17 01/10/19 20:51 01/11/19 03:45 01/11/19 07:17 Glucose (Fingerstick) 141 mg/dL (70-99) 165 mg/dL (70-99) 77 mg/dL (70-99) White Blood Count 6.7 x10^3/uL (4.0-11.0) Red Blood Count 2.54 x10^6/uL (4.30-5.70) Hemoglobin 7.5 g/dL (13.0-17.5) Hematocrit 22.8 % (39.0-53.0) Mean Corpuscular Volume 90 fL (79-100) Mean Corpuscular Hemoglobin 30 pg (25-35) Mean Corpuscular Hemoglobin Concent 33 g/dL (31-37) Red Cell Distribution Width 13.7 % (11.5-14.5) Platelet Count 131 x10^3/uL (140-400) Neutrophils (%) (Auto) 68 % (31-73) Lymphocytes (%) (Auto) 17 % (24-48) Monocytes (%) (Auto) 6 % (0-9) Eosinophils (%) (Auto) 8 % (0-3) Basophils (%) (Auto) 1 % (0-3) Neutrophils # (Auto) 4.5 x10^3uL (1.8-7.7) Lymphocytes # (Auto) 1.1 x10^3/uL (1.0-4.8) Monocytes # (Auto) 0.4 x10^3/uL (0.0-1.1) Eosinophils # (Auto) 0.6 x10^3/uL (0.0-0.7) Basophils # (Auto) 0.1 x10^3/uL (0.0-0.2) Sodium Level 142 mmol/L (136-145) Potassium Level 3.9 mmol/L (3.5-5.1) Chloride Level 105 mmol/L (98-107) Carbon Dioxide Level 24 mmol/L (21-32) Anion Gap 13 (6-14) Blood Urea Nitrogen 21 mg/dL (8-26) Creatinine 1.7 mg/dL (0.7-1.3) Estimated GFR (Cockcroft-Gault) 39.8 BUN/Creatinine Ratio 12 (6-20) Glucose Level 95 mg/dL (70-99) Calcium Level 8.7 mg/dL (8.5-10.1) Total Bilirubin 0.8 mg/dL (0.2-1.0) Aspartate Amino Transf (AST/SGOT) 22 U/L (15-37) Alanine Aminotransferase (ALT/SGPT) 18 U/L (16-63) Alkaline Phosphatase 84 U/L (46-116) Total Protein 6.6 g/dL (6.4-8.2) Albumin 2.0 g/dL (3.4-5.0) Albumin/Globulin Ratio 0.4 (1.0-1.7) Laboratory Tests Test 01/10/19 11:27 01/10/19 11:45 01/10/19 16:17 01/10/19 20:51 Glucose (Fingerstick) 167 mg/dL (70-99) 160 mg/dL (70-99) 141 mg/dL (70-99) 165 mg/dL (70-99) Test 01/11/19 03:45 01/11/19 07:17 White Blood Count 6.7 x10^3/uL (4.0-11.0) Red Blood Count 2.54 x10^6/uL (4.30-5.70) Hemoglobin 7.5 g/dL (13.0-17.5) Hematocrit 22.8 % (39.0-53.0) Mean Corpuscular Volume 90 fL (79-100) Mean Corpuscular Hemoglobin 30 pg (25-35) Mean Corpuscular Hemoglobin Concent 33 g/dL (31-37) Red Cell Distribution Width 13.7 % (11.5-14.5) Platelet Count 131 x10^3/uL (140-400) Neutrophils (%) (Auto) 68 % (31-73) Lymphocytes (%) (Auto) 17 % (24-48) Monocytes (%) (Auto) 6 % (0-9) Eosinophils (%) (Auto) 8 % (0-3) Basophils (%) (Auto) 1 % (0-3) Neutrophils # (Auto) 4.5 x10^3uL (1.8-7.7) Lymphocytes # (Auto) 1.1 x10^3/uL (1.0-4.8) Monocytes # (Auto) 0.4 x10^3/uL (0.0-1.1) Eosinophils # (Auto) 0.6 x10^3/uL (0.0-0.7) Basophils # (Auto) 0.1 x10^3/uL (0.0-0.2) Sodium Level 142 mmol/L (136-145) Potassium Level 3.9 mmol/L (3.5-5.1) Chloride Level 105 mmol/L (98-107) Carbon Dioxide Level 24 mmol/L (21-32) Anion Gap 13 (6-14) Blood Urea Nitrogen 21 mg/dL (8-26) Creatinine 1.7 mg/dL (0.7-1.3) Estimated GFR (Cockcroft-Gault) 39.8 BUN/Creatinine Ratio 12 (6-20) Glucose Level 95 mg/dL (70-99) Calcium Level 8.7 mg/dL (8.5-10.1) Total Bilirubin 0.8 mg/dL (0.2-1.0) Aspartate Amino Transf (AST/SGOT) 22 U/L (15-37) Alanine Aminotransferase (ALT/SGPT) 18 U/L (16-63) Alkaline Phosphatase 84 U/L (46-116) Total Protein 6.6 g/dL (6.4-8.2) Albumin 2.0 g/dL (3.4-5.0) Albumin/Globulin Ratio 0.4 (1.0-1.7) Glucose (Fingerstick) 77 mg/dL (70-99) Medications Current Medications Insulin Human Lispro (HumaLOG) 0-9 UNITS TIDWMEALS SQ Last administered on 12/27 18:33; Start 12/27/18 at 17:00; Stop 12/28/18 at 07:59; Status DC Dextrose (Dextrose 50%-Water Syringe) 12.5 gm PRN Q15MIN PRN IV SEE COMMENTS Last administered on 01/06/19 08:06; Start 12/27/18 at 16:45 Atorvastatin Calcium (Lipitor) 40 mg HS PO Last administered on 01/10/19 22:34 ; Start 12/27/18 at 21:00 Metoprolol Succinate (Toprol Xl) 25 mg DAILY PO Last administered on 01/11/19 08:50; Start 12/28/18 at 09:00 Niacin (Slo-Niacin) 500 mg HS PO Last administered on 01/10/19 22:34; Start at 21:00 Vitamin D (Vitamin D3) 5,000 unit DAILY PO Last administered on 01/11/19 08:49 ; Start 12/28/18 at 09:00 Non-Formulary Medication (Dulaglutide (Trulicity)) 1.5 mg WEEKLY SQ ; Start 01/03 at 09:00; Status UNV Glimepiride (Amaryl) 4 mg BIDAC PO Last administered on 01/03/19 18:02; Start 12/27/18 at 18:30; Stop 01/04/19 at 07:48; Status DC Hydrochlorothiazide (Hydrodiuril) 25 mg DAILY PO Last administered on 01/03/19 09:30; Start 12/28/18 at 09:00; Stop 01/04/19 at 07:48; Status DC Insulin Glargine (Lantus) 32 units QHS SQ Last administered on 01/03/19 22:15; Start 12/27/18 at 21:00; Stop 01/04/19 at 16:05; Status DC Levothyroxine Sodium (Synthroid) 50 mcg DAILY06 PO Last administered on 06:34; Start 12/28/18 at 06:00 Insulin Human Lispro (HumaLOG) 0-9 UNITS TIDACHC SQ Last administered on 18:18; Start 12/28/18 at 11:30 Labetalol HCl (Normodyne Iv Push) 10 mg PRN Q2HR PRN IVP HYPERTENSION, SEE COMMENTS; Start 12/28/18 at 08:00 Acetaminophen (Tylenol) 500 mg PRN Q6HRS PRN PO MILD PAIN / TEMP; Start at 08:00 Acetaminophen/ Codeine Phosphate (Tylenol #3) 1 tab PRN Q6HRS PRN PO MODERATE TO SEVERE PAIN Last administered on 01/02/19 02:15; Start 12/28/18 at 08:00 Ondansetron HCl (Zofran) 4 mg PRN Q6HRS PRN IV NAUSEA/VOMITING; Start 12/28/18 at 08:00 Ondansetron HCl (Zofran Odt) 4 mg PRN Q6HRS PRN PO NAUSEA/VOMITING; Start 12/28 at 08:00 Sodium Chloride 1,000 ml @ 75 mls/hr 1X ONCE IV Last administered on at 15:23; Start 12/28/18 at 14:30; Stop 12/29/18 at 03:49; Status DC Sodium Chloride 500 ml @ 250 mls/hr 1X ONCE IV ; Start 12/29/18 at 11:00; Stop 12/29/18 at 12:51; Status DC Influenza Virus Vaccine (Afluria Trivalent [id number] Syringe) 0.5 ml ONCE ONCE VAX IM Last administered on 01/06/19at 17:59; Start 12/29/18 at 10:00; Stop 12/29 at 10:01; Status DC Piperacillin Sod/ Tazobactam Sod (Zosyn Per Pharmacy) 1 each PRN DAILY PRN MC SEE COMMENTS; Start 12/29/18 at 11:45 Aspirin (Ecotrin) 81 mg DAILYWBKFT PO Last administered on 01/11/19at 08:50; Start 12/29/18 at 12:00 Piperacillin Sod/ Tazobactam Sod 3.375 gm/Sodium Chloride 50 ml @ 100 mls/hr Q6HRS IV Last administered on 01/11/19at 06:34; Start 12/29/18 at 12:00 Sodium Chloride 1,000 ml @ 75 mls/hr 1X ONCE IV Last administered on at 01:12; Start 12/30/18 at 00:00; Stop 12/30/18 at 13:19; Status DC Sodium Chloride 500 ml @ 250 mls/hr 1X ONCE IV Last administered on at 08:13; Start 12/30/18 at 09:30; Stop 12/30/18 at 11:29; Status DC Lactobacillus Rhamnosus (Culturelle) 1 cap BID PO Last administered on at 08:49; Start 12/29/18 at 21:00 Multivitamins (Thera M Plus) 1 tab DAILY PO Last administered on 01/11/19at 08: 49; Start 12/30/18 at 09:00 Linezolid/Dextrose 300 ml @ 300 mls/hr Q12HR IV Last administered on at 22:36; Start 12/29/18 at 15:00; Stop 01/11/19 at 08:26; Status DC Midazolam HCl (Versed) 5 mg STK-MED ONCE .ROUTE ; Start 12/30/18 at 08:07; Stop 12/30/18 at 08:08; Status DC Fentanyl Citrate (Fentanyl 2ml Vial) 100 mcg STK-MED ONCE .ROUTE ; Start at 08:07; Stop 12/30/18 at 08:08; Status DC Heparin Sodium (Porcine) (Heparin Sodium) 10,000 unit STK-MED ONCE .ROUTE ; Start 12/30/18 at 08:07; Stop 12/30/18 at 08:08; Status DC Iodixanol (Visipaque 320) 100 ml STK-MED ONCE .ROUTE ; Start 12/30/18 at 08:07; Stop 12/30/18 at 08:08; Status DC Lidocaine HCl (Lidocaine 1% 20ml Vial) 20 ml STK-MED ONCE .ROUTE ; Start at 08:07; Stop 12/30/18 at 08:08; Status DC Heparin Sodium/ Sodium Chloride 1,500 ml @ As Directed STK-MED ONCE .ROUTE ; Start 12/30/18 at 08:07; Stop 12/30/18 at 08:08; Status DC Heparin Sodium/ Sodium Chloride (HEPARIN for ARTERIAL LINE FLUSH) 1,000 unit 1X ONCE IART Last administered on 12/30/18at 10:53; Start 12/30/18 at 09:15; Stop 12/30/18 at 09:16; Status DC Midazolam HCl (Versed) 5 mg 1X ONCE IV Last administered on 12/30/18 11:01; Start 12/30/18 at 09:15; Stop 12/30/18 at 09:16; Status DC Fentanyl Citrate (Fentanyl 2ml Vial) 100 mcg 1X ONCE IV Last administered on at 10:55; Start 12/30/18 at 09:15; Stop 12/30/18 at 09:16; Status DC Iodixanol (Visipaque 320) 100 ml 1X ONCE IART Last administered on 12/30/18at 11:01; Start 12/30/18 at 09:15; Stop 12/30/18 at 09:16; Status DC Lidocaine HCl (Lidocaine 1% 20ml Vial) 20 ml 1X ONCE INJ Last administered on 12/30/18at 11:01; Start 12/30/18 at 09:15; Stop 12/30/18 at 09:16; Status DC Iodixanol (Visipaque 320) 100 ml STK-MED ONCE .ROUTE ; Start 12/30/18 at 09:42; Stop 12/30/18 at 09:43; Status DC Heparin Sodium (Porcine) (Heparin Sodium) 6,000 unit 1X ONCE IV Last administered on 12/30/18at 11:00; Start 12/30/18 at 09:16; Stop 12/30/18 at 10:06 ; Status DC Lidocaine HCl (Lidocaine 1% 20ml Vial) 20 ml STK-MED ONCE .ROUTE ; Start at 10:06; Stop 12/30/18 at 10:07; Status DC Nitroglycerin (Nitroglycerin) 200 mcg 1X ONCE IART Last administered on at 11:01; Start 12/30/18 at 10:15; Stop 12/30/18 at 10:16; Status DC Protamine Sulfate (Protamine) 50 mg STK-MED ONCE IV ; Start 12/30/18 at 10:39; Stop 12/30/18 at 10:40; Status DC Protamine Sulfate (Protamine) 30 mg 1X ONCE IV Last administered on 12/30/18at 10:48; Start 12/30/18 at 10:48; Stop 12/30/18 at 10:58; Status DC Morphine Sulfate (Morphine Sulfate) 1 mg PRN Q10MIN PRN IV SEVERE PAIN; Start 12/31/18 at 07:00; Stop 01/01/19 at 06:59; Status DC Ringer's Solution 1,000 ml @ 30 mls/hr Q24H IV ; Start 12/31/18 at 07:00; Stop 12/31/18 at 18:59; Status DC Lidocaine HCl (Xylocaine-Mpf 1% 2ml Vial) 2 ml PRN 1X PRN ID PRIOR TO IV START ; Start 12/31/18 at 07:00; Stop 01/01/19 at 06:59; Status DC Hydromorphone HCl (Dilaudid) 0.5 mg PRN Q10MIN PRN IV SEV PAIN, Second choice; Start 12/31/18 at 07:00; Stop 01/01/19 at 06:59; Status DC Prochlorperazine Edisylate (Compazine) 5 mg PACU PRN PRN IV NAUSEA, MRX1 Last administered on 12/31/18at 09:31; Start 12/31/18 at 07:00; Stop 01/01/19 at 06:59 ; Status DC Lidocaine HCl (Xylocaine 1% Pf 30ml Vial) 30 ml STK-MED ONCE .ROUTE Last administered on 12/31/18at 07:18; Start 12/31/18 at 07:02; Stop 12/31/18 at 07:03 ; Status DC Lidocaine HCl (Xylocaine 1% Pf 30ml Vial) 30 ml STK-MED ONCE .ROUTE ; Start at 07:02; Stop 12/31/18 at 07:03; Status DC Bupivacaine HCl (Sensorcaine Mpf 0.5%) 30 ml STK-MED ONCE .ROUTE Last administered on 12/31/18at 07:18; Start 12/31/18 at 07:02; Stop 12/31/18 at 07:03 ; Status DC Ondansetron HCl (Zofran) 4 mg STK-MED ONCE .ROUTE ; Start 12/31/18 at 07:05; Stop 12/31/18 at 07:06; Status DC Lidocaine HCl (Lidocaine Pf 2% Vial) 5 ml STK-MED ONCE .ROUTE ; Start 12/31/18 at 07:05; Stop 12/31/18 at 07:06; Status DC Propofol 20 ml @ As Directed STK-MED ONCE IV ; Start 12/31/18 at 07:05; Stop at 07:06; Status DC Famotidine (Pepcid Vial) 20 mg STK-MED ONCE .ROUTE ; Start 12/31/18 at 07:05; Stop 12/31/18 at 07:06; Status DC Dexamethasone Sodium Phosphate (Decadron) 20 mg STK-MED ONCE .ROUTE ; Start at 07:05; Stop 12/31/18 at 07:06; Status Cancel Fentanyl Citrate (Fentanyl 2ml Vial) 100 mcg STK-MED ONCE .ROUTE ; Start at 07:06; Stop 12/31/18 at 07:07; Status DC Desflurane (Suprane) 60 ml STK-MED ONCE IH ; Start 12/31/18 at 08:45; Stop 12/31 at 08:46; Status DC Prochlorperazine Edisylate (Compazine) 10 mg STK-MED ONCE .ROUTE ; Start at 08:57; Stop 12/31/18 at 08:58; Status DC Ondansetron HCl (Zofran) 4 mg STK-MED ONCE .ROUTE ; Start 12/31/18 at 09:39; Stop 12/31/18 at 09:40; Status DC Sodium Chloride 1,000 ml @ 100 mls/hr Q10H IV ; Start 01/03/19 at 12:00; Stop at 12:00; Status DC Lorazepam (Ativan) 0.5 mg PRN Q6HRS PRN PO ANXIETY / AGITATION Last administered on 01/07/19at 20:18; Start 01/01/19 at 23:00 Clopidogrel Bisulfate (Plavix) 75 mg DAILYWBKFT PO Last administered on at 08:50; Start 01/02/19 at 14:00 Sodium Chloride 1,000 ml @ 75 mls/hr [id number] IV Last administered on 01/04/19at 18:16; Start 01/03/19 at 12:00; Stop 01/05/19 at 18:17; Status DC Potassium Chloride (Klor-Con) 20 meq 1X ONCE PO ; Start 01/04/19 at 08:30; Stop 01/04/19 at 08:31; Status DC Lidocaine HCl (Lidocaine 1% 20ml Vial) 20 ml STK-MED ONCE .ROUTE ; Start at 14:40; Stop 01/04/19 at 14:41; Status DC Heparin Sodium/ Sodium Chloride 500 ml @ As Directed STK-MED ONCE .ROUTE ; Start 01/04/19 at 14:40; Stop 01/04/19 at 14:41; Status DC Midazolam HCl (Versed) 5 mg STK-MED ONCE .ROUTE ; Start 01/04/19 at 14:44; Stop 01/04/19 at 14:45; Status DC Fentanyl Citrate (Fentanyl 2ml Vial) 100 mcg STK-MED ONCE .ROUTE ; Start at 14:45; Stop 01/04/19 at 14:46; Status DC Heparin Sodium (Porcine) (Heparin Sodium) 10,000 unit STK-MED ONCE .ROUTE ; Start 01/04/19 at 14:45; Stop 01/04/19 at 14:46; Status DC Heparin Sodium/ Sodium Chloride (HEPARIN for ARTERIAL LINE FLUSH) 1,000 unit 1X ONCE IART Last administered on 01/04/19at 15:30; Start 01/04/19 at 15:30; Stop 01/04/19 at 15:38; Status DC Midazolam HCl (Versed) 5 mg 1X ONCE IV Last administered on 01/04/19 15:30; Start 01/04/19 at 15:30; Stop 01/04/19 at 15:38; Status DC Fentanyl Citrate (Fentanyl 2ml Vial) 100 mcg 1X ONCE IV Last administered on 15:30; Start 01/04/19 at 15:30; Stop 01/04/19 at 15:38; Status DC Iodixanol (Visipaque 320) 100 ml 1X ONCE IART ; Start 01/04/19 at 15:30; Stop at 15:56; Status DC Heparin Sodium (Porcine) (Heparin Sodium) 5,000 unit 1X ONCE IV Last administered on 01/04/19at 15:30; Start 01/04/19 at 15:30; Stop 01/04/19 at 15:39; Status DC Lidocaine HCl (Lidocaine 1% 20ml Vial) 20 ml 1X ONCE INJ Last administered on 01/04/19 15:30; Start 01/04/19 at 15:30; Stop 01/04/19 at 15:39; Status DC Insulin Glargine (Lantus) 18 units QHS SQ Last administered on 01/10/19 22:45 ; Start 01/04/19 at 21:00 Iodixanol (Visipaque 320) 100 ml 1X ONCE IART Last administered on 01/04/19 16 :30; Start 01/04/19 at 16:30; Stop 01/04/19 at 16:31; Status DC Info (CONTRAST GIVEN -- Rx MONITORING) 1 each PRN DAILY PRN MC SEE COMMENTS; Start 01/04/19 at 16:30; Stop 01/06/19 at 16:29; Status DC Albuterol/ Ipratropium (Duoneb) 3 ml RTQID NEB ; Start 01/05/19 at 08:00; Stop at 08:00; Status DC Amlodipine Besylate (Norvasc) 5 mg DAILY PO Last administered on 01/11/19at 08: 49; Start 01/05/19 at 10:30 Sodium Chloride 1,000 ml @ 75 mls/hr [id number] IV Last administered on 01/09/19at 12:40; Start 01/06/19 at 18:00 Potassium Chloride (Klor-Con) 40 meq 1X ONCE PO Last administered on 01/06/19at 12:50; Start 01/06/19 at 11:30; Stop 01/06/19 at 11:37; Status DC Tamsulosin HCl (Flomax) 0.4 mg QHS PO Last administered on 01/10/19at 22:34; Start 01/06/19 at 21:00 Iodixanol (Visipaque 320) 100 ml STK-MED ONCE .ROUTE ; Start 01/07/19 at 07:40; Stop 01/07/19 at 07:41; Status DC Lidocaine HCl (Lidocaine 1% 20ml Vial) 20 ml STK-MED ONCE .ROUTE ; Start at 07:40; Stop 01/07/19 at 07:41; Status DC Heparin Sodium/ Sodium Chloride 1,500 ml @ As Directed STK-MED ONCE .ROUTE ; Start 01/07/19 at 07:40; Stop 01/07/19 at 07:41; Status DC Midazolam HCl (Versed) 2 mg STK-MED ONCE .ROUTE ; Start 01/07/19 at 09:35; Stop 01/07/19 at 09:36; Status DC Fentanyl Citrate (Fentanyl 2ml Vial) 100 mcg STK-MED ONCE .ROUTE ; Start at 09:35; Stop 01/07/19 at 09:36; Status DC Verapamil HCl (Verapamil) 5 mg STK-MED ONCE .ROUTE ; Start 01/07/19 at 09:58; Stop 01/07/19 at 09:59; Status DC Heparin Sodium (Porcine) (Heparin Sodium) 10,000 unit STK-MED ONCE .ROUTE ; Start 01/07/19 at 09:58; Stop 01/07/19 at 09:59; Status DC Nitroglycerin (Nitroglycerin) 200 mcg STK-MED ONCE .ROUTE ; Start 01/07/19 at 09: 58; Stop 01/07/19 at 09:59; Status DC Nitroglycerin (Nitroglycerin) 200 mcg 1X ONCE IART Last administered on at 12:44; Start 01/07/19 at 11:30; Stop 01/07/19 at 11:32; Status DC Verapamil HCl (Verapamil) 2.5 mg 1X ONCE IART ; Start 01/07/19 at 11:30; Stop at 12:34; Status DC Heparin Sodium (Porcine) (Heparin Sodium) 2,500 unit 1X ONCE IART ; Start at 11:30; Stop 01/07/19 at 12:34; Status DC Heparin Sodium/ Sodium Chloride (HEPARIN for ARTERIAL LINE FLUSH) 1,000 unit 1X ONCE IART Last administered on 01/07/19at 12:43; Start 01/07/19 at 11:30; Stop 01/07/19 at 11:32; Status DC Heparin Sodium/ Sodium Chloride (HEPARIN for ARTERIAL LINE FLUSH) 1,000 unit 1X ONCE IART Last administered on 01/07/19 12:44; Start 01/07/19 at 11:30; Stop 01/07/19 at 11:32; Status DC Midazolam HCl (Versed) 2 mg 1X ONCE IV Last administered on 01/07/19 12:45; Start 01/07/19 at 11:30; Stop 01/07/19 at 11:32; Status DC Fentanyl Citrate (Fentanyl 2ml Vial) 100 mcg 1X ONCE IV Last administered on 12:45; Start 01/07/19 at 11:30; Stop 01/07/19 at 11:32; Status DC Iodixanol (Visipaque 320) 100 ml 1X ONCE IART Last administered on 01/07/19 12 :46; Start 01/07/19 at 11:30; Stop 01/07/19 at 11:32; Status DC Heparin Sodium (Porcine) (Heparin Sodium) 6,000 unit 1X ONCE IV Last administered on 01/07/19 12:46; Start 01/07/19 at 11:30; Stop 01/07/19 at 11:32; Status DC Lidocaine HCl (Lidocaine 1% 20ml Vial) 20 ml 1X ONCE INJ Last administered on 01/07/19 12:44; Start 01/07/19 at 11:30; Stop 01/07/19 at 11:32; Status DC Midazolam HCl (Versed) 2 mg STK-MED ONCE .ROUTE ; Start 01/07/19 at 12:00; Stop 01/07/19 at 12:01; Status DC Fentanyl Citrate (Fentanyl 2ml Vial) 100 mcg STK-MED ONCE .ROUTE ; Start at 12:01; Stop 01/07/19 at 12:02; Status DC Nitroglycerin (Nitroglycerin) 200 mcg STK-MED ONCE .ROUTE ; Start 01/07/19 at 12: 26; Stop 01/07/19 at 12:27; Status DC Protamine Sulfate (Protamine) 50 mg STK-MED ONCE IV ; Start 01/07/19 at 12:28; Stop 01/07/19 at 12:29; Status DC Protamine Sulfate (Protamine) 30 mg 1X ONCE IV Last administered on 01/07/19at 12:45; Start 01/07/19 at 12:45; Stop 01/07/19 at 12:46; Status DC Sodium Chloride 1,000 ml @ 150 mls/hr [id number] IV Last administered on 01/08/19at 05:54; Start 01/07/19 at 13:15; Stop 01/08/19 at 09:00; Status DC Potassium Chloride (Klor-Con) 40 meq 1X ONCE PO Last administered on 01/09/19at 11:35; Start 01/09/19 at 11:15; Stop 01/09/19 at 11:16; Status DC Active Scripts Active Reported Niaspan (Niacin) 500 Mg Tab.er.24h 500 Mg PO HS Hydrochlorothiazide Tablet (Hydrochlorothiazide) 12.5 Mg Tablet 25 Mg PO DAILY Metoprolol Succinate ( Xl ) (Metoprolol Succinate) 25 Mg Tab.er.24h 25 Mg PO DAILY Lipitor (Atorvastatin Calcium) 40 Mg Tablet 40 Mg PO HS Trulicity (Dulaglutide) 1.5 Mg/0.5 Ml Pen.injctr 1.5 Mg SQ WEEKLY [place]jeo Solostar (Insulin Glargine,Hum.rec.anlog) 300 Unit/1 Ml Insuln.pen 40 Unit SQ HS Aspirin 81 Mg Tab.chew 81 Mg PO BID Glimepiride 4 Mg Tablet 4 Mg PO BIDAC Synthroid (Levothyroxine Sodium) 50 Mcg Tablet 50 Mcg PO DAILYAC Vitamin D3 (Cholecalciferol (Vitamin D3)) 5,000 Unit Tablet 5,000 Unit PO DAILY Vitals/I & O Vital Sign - Last 24 Hours 01/10/19 01/10/19 01/10/19 01/10/19 11:22 15:15 19:45 20:00 Temp 97.7 97.9 97.7 97.7 97.9 97.7 Pulse 88 76 85 Resp 16 16 16 B/P (MAP) 135/60 (85) 113/54 (73) 115/51 (72) Pulse Ox 96 98 100 O2 Delivery Room Air Room Air Room Air Room Air O2 Flow Rate 2.0 01/10/19 01/11/19 01/11/19 01/11/19 23:04 02:12 07:00 08:49 Temp 97.6 97.7 97.4 97.6 97.7 97.4 Pulse 81 78 85 85 Resp 16 16 18 B/P (MAP) 129/54 (79) 122/47 (72) 101/63 (76) 101/63 Pulse Ox 98 94 98 O2 Delivery Room Air Room Air Room Air 01/11/19 08:50 Pulse 85 B/P (MAP) 101/63 Intake and Output 01/10/19 01/10/19 01/11/19 14:59 22:59 06:59 Intake Total 450 ml Output Total 250 ml 303 ml Balance -250 ml 147 ml SUSAN COSTA MD Jan 11, 2019 11:03
[2019-01-11 11:13] VITALS: BP 135/64
--- NOTE | 2019-01-11 11:32 | PDOC ---
PROGRESS NOTES Subjective Subjective Pt seen and examined in his hospital bed today He is s/p RLE percutaneous revascularization and right trans-met amputation He is also s/p separate LEFT LE percutaneous revascularization and left great toe wound ulceration He has no c/o Objective Objective Vital Signs Date Time Temp Pulse Resp B/P (MAP) Pulse Ox O2 Delivery O2 Flow Rate FiO2 01/11/19 11:13 97.5 91 18 135/64 (87) 97 Room Air 97.5 01/10/19 11:22 2.0 Intake and Output 01/11/19 07:00 Intake Total 450 ml Output Total 553 ml Balance -103 ml Intake Oral 100 ml IV Total 350 ml Output Urine Total 553 ml # Bowel Movements 3 Physical Exam Physical Exam excellent signals left DP excellent signals right ankle as well dressing taken down right foot --> right trans-met appears healthy and healing well left great toe ulcer no evidence of infection Diagnosis DIAGNOSIS BLE PAD with gangrene right toes --> s/p perc revasc and trans met healing well Left great toe ulcer s/p left DP and peroneal revasc percutaneously Other doing well s/p bilateral LE perc revascularization right trans-met looks good left great toe ulcer packing in place bilateral PAD -- doign well with good flow can go home today will need wound care referral for left foot great toe wound Plan Plan of Care should be able to discharge to facility today on ASA and plavix I would recommend wound care consult for outpatient wound care for left great toe wound follow up with me in 2 to 4 weeks with wound check and BLE duplex Comment Review of Relevant I have reviewed the following items magalie (where applicable) has been applied. Labs Laboratory Tests Test 01/09/19 13:20 01/09/19 16:35 01/09/19 20:43 01/10/19 07:35 Glucose (Fingerstick) 162 mg/dL (70-99) 162 mg/dL (70-99) 109 mg/dL (70-99) White Blood Count 6.5 x10^3/uL (4.0-11.0) Red Blood Count 2.57 x10^6/uL (4.30-5.70) Hemoglobin 7.6 g/dL (13.0-17.5) Hematocrit 23.2 % (39.0-53.0) Mean Corpuscular Volume 90 fL (79-100) Mean Corpuscular Hemoglobin 30 pg (25-35) Mean Corpuscular Hemoglobin Concent 33 g/dL (31-37) Red Cell Distribution Width 13.9 % (11.5-14.5) Platelet Count 130 x10^3/uL (140-400) Neutrophils (%) (Auto) 64 % (31-73) Lymphocytes (%) (Auto) 19 % (24-48) Monocytes (%) (Auto) 8 % (0-9) Eosinophils (%) (Auto) 8 % (0-3) Basophils (%) (Auto) 1 % (0-3) Neutrophils # (Auto) 4.1 x10^3uL (1.8-7.7) Lymphocytes # (Auto) 1.2 x10^3/uL (1.0-4.8) Monocytes # (Auto) 0.5 x10^3/uL (0.0-1.1) Eosinophils # (Auto) 0.5 x10^3/uL (0.0-0.7) Basophils # (Auto) 0.1 x10^3/uL (0.0-0.2) Test 01/10/19 07:55 01/10/19 07:59 01/10/19 11:27 01/10/19 11:45 Sodium Level 144 mmol/L (136-145) Potassium Level 4.2 mmol/L (3.5-5.1) Chloride Level 106 mmol/L (98-107) Carbon Dioxide Level 26 mmol/L (21-32) Anion Gap 12 (6-14) Blood Urea Nitrogen 21 mg/dL (8-26) Creatinine 1.8 mg/dL (0.7-1.3) Estimated GFR (Cockcroft-Gault) 37.3 BUN/Creatinine Ratio 12 (6-20) Glucose Level 91 mg/dL (70-99) Calcium Level 8.4 mg/dL (8.5-10.1) Total Bilirubin 0.5 mg/dL (0.2-1.0) Aspartate Amino Transf (AST/SGOT) 23 U/L (15-37) Alanine Aminotransferase (ALT/SGPT) 20 U/L (16-63) Alkaline Phosphatase 85 U/L (46-116) Total Protein 5.8 g/dL (6.4-8.2) Albumin 2.0 g/dL (3.4-5.0) Albumin/Globulin Ratio 0.5 (1.0-1.7) Glucose (Fingerstick) 82 mg/dL (70-99) 167 mg/dL (70-99) 160 mg/dL (70-99) Test 01/10/19 16:17 01/10/19 20:51 01/11/19 03:45 01/11/19 07:17 Glucose (Fingerstick) 141 mg/dL (70-99) 165 mg/dL (70-99) 77 mg/dL (70-99) White Blood Count 6.7 x10^3/uL (4.0-11.0) Red Blood Count 2.54 x10^6/uL (4.30-5.70) Hemoglobin 7.5 g/dL (13.0-17.5) Hematocrit 22.8 % (39.0-53.0) Mean Corpuscular Volume 90 fL (79-100) Mean Corpuscular Hemoglobin 30 pg (25-35) Mean Corpuscular Hemoglobin Concent 33 g/dL (31-37) Red Cell Distribution Width 13.7 % (11.5-14.5) Platelet Count 131 x10^3/uL (140-400) Neutrophils (%) (Auto) 68 % (31-73) Lymphocytes (%) (Auto) 17 % (24-48) Monocytes (%) (Auto) 6 % (0-9) Eosinophils (%) (Auto) 8 % (0-3) Basophils (%) (Auto) 1 % (0-3) Neutrophils # (Auto) 4.5 x10^3uL (1.8-7.7) Lymphocytes # (Auto) 1.1 x10^3/uL (1.0-4.8) Monocytes # (Auto) 0.4 x10^3/uL (0.0-1.1) Eosinophils # (Auto) 0.6 x10^3/uL (0.0-0.7) Basophils # (Auto) 0.1 x10^3/uL (0.0-0.2) Sodium Level 142 mmol/L (136-145) Potassium Level 3.9 mmol/L (3.5-5.1) Chloride Level 105 mmol/L (98-107) Carbon Dioxide Level 24 mmol/L (21-32) Anion Gap 13 (6-14) Blood Urea Nitrogen 21 mg/dL (8-26) Creatinine 1.7 mg/dL (0.7-1.3) Estimated GFR (Cockcroft-Gault) 39.8 BUN/Creatinine Ratio 12 (6-20) Glucose Level 95 mg/dL (70-99) Calcium Level 8.7 mg/dL (8.5-10.1) Total Bilirubin 0.8 mg/dL (0.2-1.0) Aspartate Amino Transf (AST/SGOT) 22 U/L (15-37) Alanine Aminotransferase (ALT/SGPT) 18 U/L (16-63) Alkaline Phosphatase 84 U/L (46-116) Total Protein 6.6 g/dL (6.4-8.2) Albumin 2.0 g/dL (3.4-5.0) Albumin/Globulin Ratio 0.4 (1.0-1.7) Test 01/11/19 10:58 Glucose (Fingerstick) 143 mg/dL (70-99) Laboratory Tests Test 01/10/19 11:45 01/10/19 16:17 01/10/19 20:51 01/11/19 03:45 Glucose (Fingerstick) 160 mg/dL (70-99) 141 mg/dL (70-99) 165 mg/dL (70-99) White Blood Count 6.7 x10^3/uL (4.0-11.0) Red Blood Count 2.54 x10^6/uL (4.30-5.70) Hemoglobin 7.5 g/dL (13.0-17.5) Hematocrit 22.8 % (39.0-53.0) Mean Corpuscular Volume 90 fL (79-100) Mean Corpuscular Hemoglobin 30 pg (25-35) Mean Corpuscular Hemoglobin Concent 33 g/dL (31-37) Red Cell Distribution Width 13.7 % (11.5-14.5) Platelet Count 131 x10^3/uL (140-400) Neutrophils (%) (Auto) 68 % (31-73) Lymphocytes (%) (Auto) 17 % (24-48) Monocytes (%) (Auto) 6 % (0-9) Eosinophils (%) (Auto) 8 % (0-3) Basophils (%) (Auto) 1 % (0-3) Neutrophils # (Auto) 4.5 x10^3uL (1.8-7.7) Lymphocytes # (Auto) 1.1 x10^3/uL (1.0-4.8) Monocytes # (Auto) 0.4 x10^3/uL (0.0-1.1) Eosinophils # (Auto) 0.6 x10^3/uL (0.0-0.7) Basophils # (Auto) 0.1 x10^3/uL (0.0-0.2) Sodium Level 142 mmol/L (136-145) Potassium Level 3.9 mmol/L (3.5-5.1) Chloride Level 105 mmol/L (98-107) Carbon Dioxide Level 24 mmol/L (21-32) Anion Gap 13 (6-14) Blood Urea Nitrogen 21 mg/dL (8-26) Creatinine 1.7 mg/dL (0.7-1.3) Estimated GFR (Cockcroft-Gault) 39.8 BUN/Creatinine Ratio 12 (6-20) Glucose Level 95 mg/dL (70-99) Calcium Level 8.7 mg/dL (8.5-10.1) Total Bilirubin 0.8 mg/dL (0.2-1.0) Aspartate Amino Transf (AST/SGOT) 22 U/L (15-37) Alanine Aminotransferase (ALT/SGPT) 18 U/L (16-63) Alkaline Phosphatase 84 U/L (46-116) Total Protein 6.6 g/dL (6.4-8.2) Albumin 2.0 g/dL (3.4-5.0) Albumin/Globulin Ratio 0.4 (1.0-1.7) Test 01/11/19 07:17 01/11/19 10:58 Glucose (Fingerstick) 77 mg/dL (70-99) 143 mg/dL (70-99) Medications Current Medications Insulin Human Lispro (HumaLOG) 0-9 UNITS TIDWMEALS SQ Last administered on 12/27at 18:33; Start 12/27/18 at 17:00; Stop 12/28/18 at 07:59; Status DC Dextrose (Dextrose 50%-Water Syringe) 12.5 gm PRN Q15MIN PRN IV SEE COMMENTS Last administered on 01/06/19 08:06; Start 12/27/18 at 16:45 Atorvastatin Calcium (Lipitor) 40 mg HS PO Last administered on 01/10/19 22:34 ; Start 12/27/18 at 21:00 Metoprolol Succinate (Toprol Xl) 25 mg DAILY PO Last administered on 01/11/19 08:50; Start 12/28/18 at 09:00 Niacin (Slo-Niacin) 500 mg HS PO Last administered on 01/10/19 22:34; Start at 21:00 Vitamin D (Vitamin D3) 5,000 unit DAILY PO Last administered on 01/11/19 08:49 ; Start 12/28/18 at 09:00 Non-Formulary Medication (Dulaglutide (Trulicity)) 1.5 mg WEEKLY SQ ; Start 01/03 at 09:00; Status UNV Glimepiride (Amaryl) 4 mg BIDAC PO Last administered on 01/03/19 18:02; Start 12/27/18 at 18:30; Stop 01/04/19 at 07:48; Status DC Hydrochlorothiazide (Hydrodiuril) 25 mg DAILY PO Last administered on 01/03/19 09:30; Start 12/28/18 at 09:00; Stop 01/04/19 at 07:48; Status DC Insulin Glargine (Lantus) 32 units QHS SQ Last administered on 01/03/19 22:15; Start 12/27/18 at 21:00; Stop 01/04/19 at 16:05; Status DC Levothyroxine Sodium (Synthroid) 50 mcg DAILY06 PO Last administered on 06:34; Start 12/28/18 at 06:00 Insulin Human Lispro (HumaLOG) 0-9 UNITS TIDACHC SQ Last administered on 18:18; Start 12/28/18 at 11:30 Labetalol HCl (Normodyne Iv Push) 10 mg PRN Q2HR PRN IVP HYPERTENSION, SEE COMMENTS; Start 12/28/18 at 08:00 Acetaminophen (Tylenol) 500 mg PRN Q6HRS PRN PO MILD PAIN / TEMP; Start at 08:00 Acetaminophen/ Codeine Phosphate (Tylenol #3) 1 tab PRN Q6HRS PRN PO MODERATE TO SEVERE PAIN Last administered on 01/02/19at 02:15; Start 12/28/18 at 08:00 Ondansetron HCl (Zofran) 4 mg PRN Q6HRS PRN IV NAUSEA/VOMITING; Start 12/28/18 at 08:00 Ondansetron HCl (Zofran Odt) 4 mg PRN Q6HRS PRN PO NAUSEA/VOMITING; Start 12/28 at 08:00 Sodium Chloride 1,000 ml @ 75 mls/hr 1X ONCE IV Last administered on at 15:23; Start 12/28/18 at 14:30; Stop 12/29/18 at 03:49; Status DC Sodium Chloride 500 ml @ 250 mls/hr 1X ONCE IV ; Start 12/29/18 at 11:00; Stop 12/29/18 at 12:51; Status DC Influenza Virus Vaccine (Afluria Trivalent [id number] Syringe) 0.5 ml ONCE ONCE VAX IM Last administered on 01/06/19at 17:59; Start 12/29/18 at 10:00; Stop 12/29 at 10:01; Status DC Piperacillin Sod/ Tazobactam Sod (Zosyn Per Pharmacy) 1 each PRN DAILY PRN MC SEE COMMENTS; Start 12/29/18 at 11:45 Aspirin (Ecotrin) 81 mg DAILYWBKFT PO Last administered on 01/11/19at 08:50; Start 12/29/18 at 12:00 Piperacillin Sod/ Tazobactam Sod 3.375 gm/Sodium Chloride 50 ml @ 100 mls/hr Q6HRS IV Last administered on 01/11/19at 06:34; Start 12/29/18 at 12:00 Sodium Chloride 1,000 ml @ 75 mls/hr 1X ONCE IV Last administered on at 01:12; Start 12/30/18 at 00:00; Stop 12/30/18 at 13:19; Status DC Sodium Chloride 500 ml @ 250 mls/hr 1X ONCE IV Last administered on at 08:13; Start 12/30/18 at 09:30; Stop 12/30/18 at 11:29; Status DC Lactobacillus Rhamnosus (Culturelle) 1 cap BID PO Last administered on at 08:49; Start 12/29/18 at 21:00 Multivitamins (Thera M Plus) 1 tab DAILY PO Last administered on 01/11/19at 08: 49; Start 12/30/18 at 09:00 Linezolid/Dextrose 300 ml @ 300 mls/hr Q12HR IV Last administered on at 22:36; Start 12/29/18 at 15:00; Stop 01/11/19 at 08:26; Status DC Midazolam HCl (Versed) 5 mg STK-MED ONCE .ROUTE ; Start 12/30/18 at 08:07; Stop 12/30/18 at 08:08; Status DC Fentanyl Citrate (Fentanyl 2ml Vial) 100 mcg STK-MED ONCE .ROUTE ; Start at 08:07; Stop 12/30/18 at 08:08; Status DC Heparin Sodium (Porcine) (Heparin Sodium) 10,000 unit STK-MED ONCE .ROUTE ; Start 12/30/18 at 08:07; Stop 12/30/18 at 08:08; Status DC Iodixanol (Visipaque 320) 100 ml STK-MED ONCE .ROUTE ; Start 12/30/18 at 08:07; Stop 12/30/18 at 08:08; Status DC Lidocaine HCl (Lidocaine 1% 20ml Vial) 20 ml STK-MED ONCE .ROUTE ; Start at 08:07; Stop 12/30/18 at 08:08; Status DC Heparin Sodium/ Sodium Chloride 1,500 ml @ As Directed STK-MED ONCE .ROUTE ; Start 12/30/18 at 08:07; Stop 12/30/18 at 08:08; Status DC Heparin Sodium/ Sodium Chloride (HEPARIN for ARTERIAL LINE FLUSH) 1,000 unit 1X ONCE IART Last administered on 12/30/18at 10:53; Start 12/30/18 at 09:15; Stop 12/30/18 at 09:16; Status DC Midazolam HCl (Versed) 5 mg 1X ONCE IV Last administered on 12/30/18at 11:01; Start 12/30/18 at 09:15; Stop 12/30/18 at 09:16; Status DC Fentanyl Citrate (Fentanyl 2ml Vial) 100 mcg 1X ONCE IV Last administered on at 10:55; Start 12/30/18 at 09:15; Stop 12/30/18 at 09:16; Status DC Iodixanol (Visipaque 320) 100 ml 1X ONCE IART Last administered on 12/30/18at 11:01; Start 12/30/18 at 09:15; Stop 12/30/18 at 09:16; Status DC Lidocaine HCl (Lidocaine 1% 20ml Vial) 20 ml 1X ONCE INJ Last administered on 12/30/18at 11:01; Start 12/30/18 at 09:15; Stop 12/30/18 at 09:16; Status DC Iodixanol (Visipaque 320) 100 ml STK-MED ONCE .ROUTE ; Start 12/30/18 at 09:42; Stop 12/30/18 at 09:43; Status DC Heparin Sodium (Porcine) (Heparin Sodium) 6,000 unit 1X ONCE IV Last administered on 12/30/18at 11:00; Start 12/30/18 at 09:16; Stop 12/30/18 at 10:06 ; Status DC Lidocaine HCl (Lidocaine 1% 20ml Vial) 20 ml STK-MED ONCE .ROUTE ; Start at 10:06; Stop 12/30/18 at 10:07; Status DC Nitroglycerin (Nitroglycerin) 200 mcg 1X ONCE IART Last administered on at 11:01; Start 12/30/18 at 10:15; Stop 12/30/18 at 10:16; Status DC Protamine Sulfate (Protamine) 50 mg STK-MED ONCE IV ; Start 12/30/18 at 10:39; Stop 12/30/18 at 10:40; Status DC Protamine Sulfate (Protamine) 30 mg 1X ONCE IV Last administered on 12/30/18at 10:48; Start 12/30/18 at 10:48; Stop 12/30/18 at 10:58; Status DC Morphine Sulfate (Morphine Sulfate) 1 mg PRN Q10MIN PRN IV SEVERE PAIN; Start 12/31/18 at 07:00; Stop 01/01/19 at 06:59; Status DC Ringer's Solution 1,000 ml @ 30 mls/hr Q24H IV ; Start 12/31/18 at 07:00; Stop 12/31/18 at 18:59; Status DC Lidocaine HCl (Xylocaine-Mpf 1% 2ml Vial) 2 ml PRN 1X PRN ID PRIOR TO IV START ; Start 12/31/18 at 07:00; Stop 01/01/19 at 06:59; Status DC Hydromorphone HCl (Dilaudid) 0.5 mg PRN Q10MIN PRN IV SEV PAIN, Second choice; Start 12/31/18 at 07:00; Stop 01/01/19 at 06:59; Status DC Prochlorperazine Edisylate (Compazine) 5 mg PACU PRN PRN IV NAUSEA, MRX1 Last administered on 12/31/18at 09:31; Start 12/31/18 at 07:00; Stop 01/01/19 at 06:59 ; Status DC Lidocaine HCl (Xylocaine 1% Pf 30ml Vial) 30 ml STK-MED ONCE .ROUTE Last administered on 12/31/18at 07:18; Start 12/31/18 at 07:02; Stop 12/31/18 at 07:03 ; Status DC Lidocaine HCl (Xylocaine 1% Pf 30ml Vial) 30 ml STK-MED ONCE .ROUTE ; Start at 07:02; Stop 12/31/18 at 07:03; Status DC Bupivacaine HCl (Sensorcaine Mpf 0.5%) 30 ml STK-MED ONCE .ROUTE Last administered on 12/31/18at 07:18; Start 12/31/18 at 07:02; Stop 12/31/18 at 07:03 ; Status DC Ondansetron HCl (Zofran) 4 mg STK-MED ONCE .ROUTE ; Start 12/31/18 at 07:05; Stop 12/31/18 at 07:06; Status DC Lidocaine HCl (Lidocaine Pf 2% Vial) 5 ml STK-MED ONCE .ROUTE ; Start 12/31/18 at 07:05; Stop 12/31/18 at 07:06; Status DC Propofol 20 ml @ As Directed STK-MED ONCE IV ; Start 12/31/18 at 07:05; Stop at 07:06; Status DC Famotidine (Pepcid Vial) 20 mg STK-MED ONCE .ROUTE ; Start 12/31/18 at 07:05; Stop 12/31/18 at 07:06; Status DC Dexamethasone Sodium Phosphate (Decadron) 20 mg STK-MED ONCE .ROUTE ; Start at 07:05; Stop 12/31/18 at 07:06; Status Cancel Fentanyl Citrate (Fentanyl 2ml Vial) 100 mcg STK-MED ONCE .ROUTE ; Start at 07:06; Stop 12/31/18 at 07:07; Status DC Desflurane (Suprane) 60 ml STK-MED ONCE IH ; Start 12/31/18 at 08:45; Stop 12/31 at 08:46; Status DC Prochlorperazine Edisylate (Compazine) 10 mg STK-MED ONCE .ROUTE ; Start at 08:57; Stop 12/31/18 at 08:58; Status DC Ondansetron HCl (Zofran) 4 mg STK-MED ONCE .ROUTE ; Start 12/31/18 at 09:39; Stop 12/31/18 at 09:40; Status DC Sodium Chloride 1,000 ml @ 100 mls/hr Q10H IV ; Start 01/03/19 at 12:00; Stop at 12:00; Status DC Lorazepam (Ativan) 0.5 mg PRN Q6HRS PRN PO ANXIETY / AGITATION Last administered on 01/07/19at 20:18; Start 01/01/19 at 23:00 Clopidogrel Bisulfate (Plavix) 75 mg DAILYWBKFT PO Last administered on at 08:50; Start 01/02/19 at 14:00 Sodium Chloride 1,000 ml @ 75 mls/hr [id number] IV Last administered on 01/04/19at 18:16; Start 01/03/19 at 12:00; Stop 01/05/19 at 18:17; Status DC Potassium Chloride (Klor-Con) 20 meq 1X ONCE PO ; Start 01/04/19 at 08:30; Stop 01/04/19 at 08:31; Status DC Lidocaine HCl (Lidocaine 1% 20ml Vial) 20 ml STK-MED ONCE .ROUTE ; Start at 14:40; Stop 01/04/19 at 14:41; Status DC Heparin Sodium/ Sodium Chloride 500 ml @ As Directed STK-MED ONCE .ROUTE ; Start 01/04/19 at 14:40; Stop 01/04/19 at 14:41; Status DC Midazolam HCl (Versed) 5 mg STK-MED ONCE .ROUTE ; Start 01/04/19 at 14:44; Stop 01/04/19 at 14:45; Status DC Fentanyl Citrate (Fentanyl 2ml Vial) 100 mcg STK-MED ONCE .ROUTE ; Start at 14:45; Stop 01/04/19 at 14:46; Status DC Heparin Sodium (Porcine) (Heparin Sodium) 10,000 unit STK-MED ONCE .ROUTE ; Start 01/04/19 at 14:45; Stop 01/04/19 at 14:46; Status DC Heparin Sodium/ Sodium Chloride (HEPARIN for ARTERIAL LINE FLUSH) 1,000 unit 1X ONCE IART Last administered on 01/04/19 15:30; Start 01/04/19 at 15:30; Stop 01/04/19 at 15:38; Status DC Midazolam HCl (Versed) 5 mg 1X ONCE IV Last administered on 01/04/19 15:30; Start 01/04/19 at 15:30; Stop 01/04/19 at 15:38; Status DC Fentanyl Citrate (Fentanyl 2ml Vial) 100 mcg 1X ONCE IV Last administered on 15:30; Start 01/04/19 at 15:30; Stop 01/04/19 at 15:38; Status DC Iodixanol (Visipaque 320) 100 ml 1X ONCE IART ; Start 01/04/19 at 15:30; Stop at 15:56; Status DC Heparin Sodium (Porcine) (Heparin Sodium) 5,000 unit 1X ONCE IV Last administered on 01/04/19 15:30; Start 01/04/19 at 15:30; Stop 01/04/19 at 15:39; Status DC Lidocaine HCl (Lidocaine 1% 20ml Vial) 20 ml 1X ONCE INJ Last administered on 01/04/19 15:30; Start 01/04/19 at 15:30; Stop 01/04/19 at 15:39; Status DC Insulin Glargine (Lantus) 18 units QHS SQ Last administered on 01/10/19at 22:45 ; Start 01/04/19 at 21:00 Iodixanol (Visipaque 320) 100 ml 1X ONCE IART Last administered on 01/04/19at 16 :30; Start 01/04/19 at 16:30; Stop 01/04/19 at 16:31; Status DC Info (CONTRAST GIVEN -- Rx MONITORING) 1 each PRN DAILY PRN MC SEE COMMENTS; Start 01/04/19 at 16:30; Stop 01/06/19 at 16:29; Status DC Albuterol/ Ipratropium (Duoneb) 3 ml RTQID NEB ; Start 01/05/19 at 08:00; Stop at 08:00; Status DC Amlodipine Besylate (Norvasc) 5 mg DAILY PO Last administered on 01/11/19at 08: 49; Start 01/05/19 at 10:30 Sodium Chloride 1,000 ml @ 75 mls/hr [id number] IV Last administered on 01/09/19at 12:40; Start 01/06/19 at 18:00 Potassium Chloride (Klor-Con) 40 meq 1X ONCE PO Last administered on 01/06/19at 12:50; Start 01/06/19 at 11:30; Stop 01/06/19 at 11:37; Status DC Tamsulosin HCl (Flomax) 0.4 mg QHS PO Last administered on 01/10/19at 22:34; Start 01/06/19 at 21:00 Iodixanol (Visipaque 320) 100 ml STK-MED ONCE .ROUTE ; Start 01/07/19 at 07:40; Stop 01/07/19 at 07:41; Status DC Lidocaine HCl (Lidocaine 1% 20ml Vial) 20 ml STK-MED ONCE .ROUTE ; Start at 07:40; Stop 01/07/19 at 07:41; Status DC Heparin Sodium/ Sodium Chloride 1,500 ml @ As Directed STK-MED ONCE .ROUTE ; Start 01/07/19 at 07:40; Stop 01/07/19 at 07:41; Status DC Midazolam HCl (Versed) 2 mg STK-MED ONCE .ROUTE ; Start 01/07/19 at 09:35; Stop 01/07/19 at 09:36; Status DC Fentanyl Citrate (Fentanyl 2ml Vial) 100 mcg STK-MED ONCE .ROUTE ; Start at 09:35; Stop 01/07/19 at 09:36; Status DC Verapamil HCl (Verapamil) 5 mg STK-MED ONCE .ROUTE ; Start 01/07/19 at 09:58; Stop 01/07/19 at 09:59; Status DC Heparin Sodium (Porcine) (Heparin Sodium) 10,000 unit STK-MED ONCE .ROUTE ; Start 01/07/19 at 09:58; Stop 01/07/19 at 09:59; Status DC Nitroglycerin (Nitroglycerin) 200 mcg STK-MED ONCE .ROUTE ; Start 01/07/19 at 09: 58; Stop 01/07/19 at 09:59; Status DC Nitroglycerin (Nitroglycerin) 200 mcg 1X ONCE IART Last administered on 12:44; Start 01/07/19 at 11:30; Stop 01/07/19 at 11:32; Status DC Verapamil HCl (Verapamil) 2.5 mg 1X ONCE IART ; Start 01/07/19 at 11:30; Stop at 12:34; Status DC Heparin Sodium (Porcine) (Heparin Sodium) 2,500 unit 1X ONCE IART ; Start at 11:30; Stop 01/07/19 at 12:34; Status DC Heparin Sodium/ Sodium Chloride (HEPARIN for ARTERIAL LINE FLUSH) 1,000 unit 1X ONCE IART Last administered on 01/07/19at 12:43; Start 01/07/19 at 11:30; Stop 01/07/19 at 11:32; Status DC Heparin Sodium/ Sodium Chloride (HEPARIN for ARTERIAL LINE FLUSH) 1,000 unit 1X ONCE IART Last administered on 01/07/19 12:44; Start 01/07/19 at 11:30; Stop 01/07/19 at 11:32; Status DC Midazolam HCl (Versed) 2 mg 1X ONCE IV Last administered on 01/07/19 12:45; Start 01/07/19 at 11:30; Stop 01/07/19 at 11:32; Status DC Fentanyl Citrate (Fentanyl 2ml Vial) 100 mcg 1X ONCE IV Last administered on 12:45; Start 01/07/19 at 11:30; Stop 01/07/19 at 11:32; Status DC Iodixanol (Visipaque 320) 100 ml 1X ONCE IART Last administered on 01/07/19at 12 :46; Start 01/07/19 at 11:30; Stop 01/07/19 at 11:32; Status DC Heparin Sodium (Porcine) (Heparin Sodium) 6,000 unit 1X ONCE IV Last administered on 01/07/19at 12:46; Start 01/07/19 at 11:30; Stop 01/07/19 at 11:32; Status DC Lidocaine HCl (Lidocaine 1% 20ml Vial) 20 ml 1X ONCE INJ Last administered on 01/07/19at 12:44; Start 01/07/19 at 11:30; Stop 01/07/19 at 11:32; Status DC Midazolam HCl (Versed) 2 mg STK-MED ONCE .ROUTE ; Start 01/07/19 at 12:00; Stop 01/07/19 at 12:01; Status DC Fentanyl Citrate (Fentanyl 2ml Vial) 100 mcg STK-MED ONCE .ROUTE ; Start at 12:01; Stop 01/07/19 at 12:02; Status DC Nitroglycerin (Nitroglycerin) 200 mcg STK-MED ONCE .ROUTE ; Start 01/07/19 at 12: 26; Stop 01/07/19 at 12:27; Status DC Protamine Sulfate (Protamine) 50 mg STK-MED ONCE IV ; Start 01/07/19 at 12:28; Stop 01/07/19 at 12:29; Status DC Protamine Sulfate (Protamine) 30 mg 1X ONCE IV Last administered on 01/07/19at 12:45; Start 01/07/19 at 12:45; Stop 01/07/19 at 12:46; Status DC Sodium Chloride 1,000 ml @ 150 mls/hr Q6H40M IV Last administered on 01/08/19at 05:54; Start 01/07/19 at 13:15; Stop 01/08/19 at 09:00; Status DC Potassium Chloride (Klor-Con) 40 meq 1X ONCE PO Last administered on 01/09/19at 11:35; Start 01/09/19 at 11:15; Stop 01/09/19 at 11:16; Status DC Active Scripts Active Reported Niaspan (Niacin) 500 Mg Tab.er.24h 500 Mg PO HS Hydrochlorothiazide Tablet (Hydrochlorothiazide) 12.5 Mg Tablet 25 Mg PO DAILY Metoprolol Succinate ( Xl ) (Metoprolol Succinate) 25 Mg Tab.er.24h 25 Mg PO DAILY Lipitor (Atorvastatin Calcium) 40 Mg Tablet 40 Mg PO HS Trulicity (Dulaglutide) 1.5 Mg/0.5 Ml Pen.injctr 1.5 Mg SQ WEEKLY Re Moralesostar (Insulin Glargine,Hum.rec.anlog) 300 Unit/1 Ml Insuln.pen 40 Unit SQ HS Aspirin 81 Mg Tab.chew 81 Mg PO BID Glimepiride 4 Mg Tablet 4 Mg PO BIDAC Synthroid (Levothyroxine Sodium) 50 Mcg Tablet 50 Mcg PO DAILYAC Vitamin D3 (Cholecalciferol (Vitamin D3)) 5,000 Unit Tablet 5,000 Unit PO DAILY Vitals/I & O Vital Sign - Last 24 Hours 01/10/19 01/10/19 01/10/19 01/10/19 15:15 19:45 20:00 23:04 Temp 97.9 97.7 97.6 97.9 97.7 97.6 Pulse 76 85 81 Resp 16 16 16 B/P (MAP) 113/54 (73) 115/51 (72) 129/54 (79) Pulse Ox 98 100 98 O2 Delivery Room Air Room Air Room Air Room Air 01/11/19 01/11/19 01/11/19 01/11/19 02:12 07:00 08:49 08:50 Temp 97.7 97.4 97.7 97.4 Pulse 78 85 85 85 Resp 16 18 B/P (MAP) 122/47 (72) 101/63 (76) 101/63 101/63 Pulse Ox 94 98 O2 Delivery Room Air Room Air 01/11/19 11:13 Temp 97.5 97.5 Pulse 91 Resp 18 B/P (MAP) 135/64 (87) Pulse Ox 97 O2 Delivery Room Air Intake and Output 01/10/19 01/10/19 01/11/19 15:00 23:00 07:00 Intake Total 450 ml Output Total 250 ml 303 ml Balance -250 ml 147 ml RILEY RODRIGUEZ MD Jan 11, 2019 11:32
--- NOTE | 2019-01-11 11:51 | PDOC ---
Renal-Progress Notes Subjective Notes Notes NONE NEW History of Present Illness Hx of present illness STABLE Vitals Vitals Vital Signs Date Time Temp Pulse Resp B/P (MAP) Pulse Ox O2 Delivery O2 Flow Rate FiO2 01/11/19 11:13 97.5 91 18 135/64 (87) 97 Room Air 97.5 01/10/19 11:22 2.0 Weight Weight [ ] I.O. Intake and Output Intake and Output 01/11/19 07:00 Intake Total 450 ml Output Total 553 ml Balance -103 ml Intake Oral 100 ml IV Total 350 ml Output Urine Total 553 ml # Bowel Movements 3 Labs Labs Laboratory Tests Test 01/10/19 16:17 01/10/19 20:51 01/11/19 03:45 01/11/19 07:17 Glucose (Fingerstick) 141 mg/dL (70-99) 165 mg/dL (70-99) 77 mg/dL (70-99) White Blood Count 6.7 x10^3/uL (4.0-11.0) Red Blood Count 2.54 x10^6/uL (4.30-5.70) Hemoglobin 7.5 g/dL (13.0-17.5) Hematocrit 22.8 % (39.0-53.0) Mean Corpuscular Volume 90 fL (79-100) Mean Corpuscular Hemoglobin 30 pg (25-35) Mean Corpuscular Hemoglobin Concent 33 g/dL (31-37) Red Cell Distribution Width 13.7 % (11.5-14.5) Platelet Count 131 x10^3/uL (140-400) Neutrophils (%) (Auto) 68 % (31-73) Lymphocytes (%) (Auto) 17 % (24-48) Monocytes (%) (Auto) 6 % (0-9) Eosinophils (%) (Auto) 8 % (0-3) Basophils (%) (Auto) 1 % (0-3) Neutrophils # (Auto) 4.5 x10^3uL (1.8-7.7) Lymphocytes # (Auto) 1.1 x10^3/uL (1.0-4.8) Monocytes # (Auto) 0.4 x10^3/uL (0.0-1.1) Eosinophils # (Auto) 0.6 x10^3/uL (0.0-0.7) Basophils # (Auto) 0.1 x10^3/uL (0.0-0.2) Sodium Level 142 mmol/L (136-145) Potassium Level 3.9 mmol/L (3.5-5.1) Chloride Level 105 mmol/L (98-107) Carbon Dioxide Level 24 mmol/L (21-32) Anion Gap 13 (6-14) Blood Urea Nitrogen 21 mg/dL (8-26) Creatinine 1.7 mg/dL (0.7-1.3) Estimated GFR (Cockcroft-Gault) 39.8 BUN/Creatinine Ratio 12 (6-20) Glucose Level 95 mg/dL (70-99) Calcium Level 8.7 mg/dL (8.5-10.1) Total Bilirubin 0.8 mg/dL (0.2-1.0) Aspartate Amino Transf (AST/SGOT) 22 U/L (15-37) Alanine Aminotransferase (ALT/SGPT) 18 U/L (16-63) Alkaline Phosphatase 84 U/L (46-116) Total Protein 6.6 g/dL (6.4-8.2) Albumin 2.0 g/dL (3.4-5.0) Albumin/Globulin Ratio 0.4 (1.0-1.7) Test 01/11/19 10:58 Glucose (Fingerstick) 143 mg/dL (70-99) Review of Systems Constitutional: yes: weakness, alert, oriented Ears/Nose/Throat: Yes: no symptom reported Eyes: Yes: no symptom reported Pulmonary: Yes no symptom reported Cardiovascular: Yes no symptom reported Genitourinary: Yes: no symptom reported Musculoskeletal: Yes: no symptom reported Skin: Yes no symptom reported Psychiatric/Neurological: Yes: no symptom reported Endocrine: Yes: no symptom reported Physical Exam General Appearance: no apparent distress Skin: warm Respiratory: decreased breath sounds Heart: S1S2 Abdomen: soft, bowel sounds present Genitourinary: bladder flat Extremities: pulses present Neurology: alert, oriented Assessment Assessment IMP CKD STAGE 3-CR STABLE AT 1.7-NO EVIDENCE OF ABA FROM CONTRAST PAD-S/P LE REVASCULARIZATION AND AMP PLAN RENAL FXN STABLE OK TO D/C FROM RENAL STANDPOINT WILL FOLLOW NEEDED D/C IVF'S ANDREA NÚÑEZ MD Jan 11, 2019 11:51
[2019-01-11] MEDS ORDERED: LIDOCAINE WITH 8.4% SOD BICARB 3 ML DISP.SYRIN. ONE (12:18)
[2019-01-11] MEDS ORDERED: LIDOCAINE WITH 8.4% SOD BICARB 3 ML DISP.SYRIN. INJ ONE (12:30)
--- NOTE | 2019-01-11 13:53 | PDOC3 ---
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 PMH of HTN, CVA , DM2 Pt was seen and examined this morning s/p RLE percutaneous revascularization and right trans-met amputation LEFT LE percutaneous revascularization and left great toe wound ulceration Reports 2-3 bouts of diarrhea for the last few days Discussed with RN Discussed discharge plans, hope to D/C to SNF TODAY 01/11 D/C PLANNING TIME 36 MIN 01/11 Vitals Vitals Vital Signs Date Time Temp Pulse Resp B/P (MAP) Pulse Ox O2 Delivery O2 Flow Rate FiO2 01/11/19 08:50 85 101/63 01/11/19 07:00 97.4 18 98 Room Air 97.4 01/10/19 11:22 2.0 Physical Exam Physical Exam GENERAL: Sitting in the chair, NAD - alert HEENT: Oral cavity clear - nml vitor NECK: Supple LUNGS: Clear. HEART: S1, S2 ABDOMEN: Obese, soft, NT, BS present EXTREMITIES: 2 + edema BLE. Right foot bandaged Left toe dressed NEUROLOGIC: Moves all ext. responds appropriately PIV ok General: Alert, Oriented X3, Cooperative, No acute distress Heart: Regular rate, Normal S1, Normal S2, No murmurs Lungs: Clear Abdomen: Soft, No tenderness Extremities: No clubbing, No cyanosis, Other (R foot with bandage CDI, L foot with bandage DRY on dorsal aspect of MCP joint) Skin: Other (R groin surgical access site has a clean/dry/intact dressing ) Labs Brief Hospital Course Mr. Watson is a 73 old [sex] who presented with [GANGRENE OF FOOT/ TOES ] CONDITION AT DISCHARGE: Improved Discharge Medications Current Medications Insulin Human Lispro (HumaLOG) 0-9 UNITS TIDWMEALS SQ Last administered on 12/27 18:33; Start 12/27/18 at 17:00; Stop 12/28/18 at 07:59; Status DC Dextrose (Dextrose 50%-Water Syringe) 12.5 gm PRN Q15MIN PRN IV SEE COMMENTS Last administered on 01/06/19 08:06; Start 12/27/18 at 16:45 Atorvastatin Calcium (Lipitor) 40 mg HS PO Last administered on 01/10/19 22:34 ; Start 12/27/18 at 21:00 Metoprolol Succinate (Toprol Xl) 25 mg DAILY PO Last administered on 01/11/19 08:50; Start 12/28/18 at 09:00 Niacin (Slo-Niacin) 500 mg HS PO Last administered on 01/10/19 22:34; Start at 21:00 Vitamin D (Vitamin D3) 5,000 unit DAILY PO Last administered on 01/11/19 08:49 ; Start 12/28/18 at 09:00 Non-Formulary Medication (Dulaglutide (Trulicity)) 1.5 mg WEEKLY SQ ; Start 01/03 at 09:00; Status UNV Glimepiride (Amaryl) 4 mg BIDAC PO Last administered on 01/03/19 18:02; Start 12/27/18 at 18:30; Stop 01/04/19 at 07:48; Status DC Hydrochlorothiazide (Hydrodiuril) 25 mg DAILY PO Last administered on 01/03/19 09:30; Start 12/28/18 at 09:00; Stop 01/04/19 at 07:48; Status DC Insulin Glargine (Lantus) 32 units QHS SQ Last administered on 01/03/19 22:15; Start 12/27/18 at 21:00; Stop 01/04/19 at 16:05; Status DC Levothyroxine Sodium (Synthroid) 50 mcg DAILY06 PO Last administered on 06:34; Start 12/28/18 at 06:00 Insulin Human Lispro (HumaLOG) 0-9 UNITS TIDACHC SQ Last administered on at 18:18; Start 12/28/18 at 11:30 Labetalol HCl (Normodyne Iv Push) 10 mg PRN Q2HR PRN IVP HYPERTENSION, SEE COMMENTS; Start 12/28/18 at 08:00 Acetaminophen (Tylenol) 500 mg PRN Q6HRS PRN PO MILD PAIN / TEMP; Start at 08:00 Acetaminophen/ Codeine Phosphate (Tylenol #3) 1 tab PRN Q6HRS PRN PO MODERATE TO SEVERE PAIN Last administered on 01/02/19at 02:15; Start 12/28/18 at 08:00 Ondansetron HCl (Zofran) 4 mg PRN Q6HRS PRN IV NAUSEA/VOMITING; Start 12/28/18 at 08:00 Ondansetron HCl (Zofran Odt) 4 mg PRN Q6HRS PRN PO NAUSEA/VOMITING; Start 12/28 at 08:00 Sodium Chloride 1,000 ml @ 75 mls/hr 1X ONCE IV Last administered on at 15:23; Start 12/28/18 at 14:30; Stop 12/29/18 at 03:49; Status DC Sodium Chloride 500 ml @ 250 mls/hr 1X ONCE IV ; Start 12/29/18 at 11:00; Stop 12/29/18 at 12:51; Status DC Influenza Virus Vaccine (Afluria Trivalent [id number] Syringe) 0.5 ml ONCE ONCE VAX IM Last administered on 01/06/19at 17:59; Start 12/29/18 at 10:00; Stop 12/29 at 10:01; Status DC Piperacillin Sod/ Tazobactam Sod (Zosyn Per Pharmacy) 1 each PRN DAILY PRN MC SEE COMMENTS; Start 12/29/18 at 11:45 Aspirin (Ecotrin) 81 mg DAILYWBKFT PO Last administered on 01/11/19at 08:50; Start 12/29/18 at 12:00 Piperacillin Sod/ Tazobactam Sod 3.375 gm/Sodium Chloride 50 ml @ 100 mls/hr Q6HRS IV Last administered on 01/11/19at 12:09; Start 12/29/18 at 12:00 Sodium Chloride 1,000 ml @ 75 mls/hr 1X ONCE IV Last administered on at 01:12; Start 12/30/18 at 00:00; Stop 12/30/18 at 13:19; Status DC Sodium Chloride 500 ml @ 250 mls/hr 1X ONCE IV Last administered on at 08:13; Start 12/30/18 at 09:30; Stop 12/30/18 at 11:29; Status DC Lactobacillus Rhamnosus (Culturelle) 1 cap BID PO Last administered on at 08:49; Start 12/29/18 at 21:00 Multivitamins (Thera M Plus) 1 tab DAILY PO Last administered on 01/11/19at 08: 49; Start 12/30/18 at 09:00 Linezolid/Dextrose 300 ml @ 300 mls/hr Q12HR IV Last administered on at 22:36; Start 12/29/18 at 15:00; Stop 01/11/19 at 08:26; Status DC Midazolam HCl (Versed) 5 mg STK-MED ONCE .ROUTE ; Start 12/30/18 at 08:07; Stop 12/30/18 at 08:08; Status DC Fentanyl Citrate (Fentanyl 2ml Vial) 100 mcg STK-MED ONCE .ROUTE ; Start at 08:07; Stop 12/30/18 at 08:08; Status DC Heparin Sodium (Porcine) (Heparin Sodium) 10,000 unit STK-MED ONCE .ROUTE ; Start 12/30/18 at 08:07; Stop 12/30/18 at 08:08; Status DC Iodixanol (Visipaque 320) 100 ml STK-MED ONCE .ROUTE ; Start 12/30/18 at 08:07; Stop 12/30/18 at 08:08; Status DC Lidocaine HCl (Lidocaine 1% 20ml Vial) 20 ml STK-MED ONCE .ROUTE ; Start at 08:07; Stop 12/30/18 at 08:08; Status DC Heparin Sodium/ Sodium Chloride 1,500 ml @ As Directed STK-MED ONCE .ROUTE ; Start 12/30/18 at 08:07; Stop 12/30/18 at 08:08; Status DC Heparin Sodium/ Sodium Chloride (HEPARIN for ARTERIAL LINE FLUSH) 1,000 unit 1X ONCE IART Last administered on 12/30/18 10:53; Start 12/30/18 at 09:15; Stop 12/30/18 at 09:16; Status DC Midazolam HCl (Versed) 5 mg 1X ONCE IV Last administered on 12/30/18 11:01; Start 12/30/18 at 09:15; Stop 12/30/18 at 09:16; Status DC Fentanyl Citrate (Fentanyl 2ml Vial) 100 mcg 1X ONCE IV Last administered on 10:55; Start 12/30/18 at 09:15; Stop 12/30/18 at 09:16; Status DC Iodixanol (Visipaque 320) 100 ml 1X ONCE IART Last administered on 12/30/18 11:01; Start 12/30/18 at 09:15; Stop 12/30/18 at 09:16; Status DC Lidocaine HCl (Lidocaine 1% 20ml Vial) 20 ml 1X ONCE INJ Last administered on 12/30/18 11:01; Start 12/30/18 at 09:15; Stop 12/30/18 at 09:16; Status DC Iodixanol (Visipaque 320) 100 ml STK-MED ONCE .ROUTE ; Start 12/30/18 at 09:42; Stop 12/30/18 at 09:43; Status DC Heparin Sodium (Porcine) (Heparin Sodium) 6,000 unit 1X ONCE IV Last administered on 12/30/18 11:00; Start 12/30/18 at 09:16; Stop 12/30/18 at 10:06 ; Status DC Lidocaine HCl (Lidocaine 1% 20ml Vial) 20 ml STK-MED ONCE .ROUTE ; Start at 10:06; Stop 12/30/18 at 10:07; Status DC Nitroglycerin (Nitroglycerin) 200 mcg 1X ONCE IART Last administered on 11:01; Start 12/30/18 at 10:15; Stop 12/30/18 at 10:16; Status DC Protamine Sulfate (Protamine) 50 mg STK-MED ONCE IV ; Start 12/30/18 at 10:39; Stop 12/30/18 at 10:40; Status DC Protamine Sulfate (Protamine) 30 mg 1X ONCE IV Last administered on 12/30/18at 10:48; Start 12/30/18 at 10:48; Stop 12/30/18 at 10:58; Status DC Morphine Sulfate (Morphine Sulfate) 1 mg PRN Q10MIN PRN IV SEVERE PAIN; Start 12/31/18 at 07:00; Stop 01/01/19 at 06:59; Status DC Ringer's Solution 1,000 ml @ 30 mls/hr Q24H IV ; Start 12/31/18 at 07:00; Stop 12/31/18 at 18:59; Status DC Lidocaine HCl (Xylocaine-Mpf 1% 2ml Vial) 2 ml PRN 1X PRN ID PRIOR TO IV START ; Start 12/31/18 at 07:00; Stop 01/01/19 at 06:59; Status DC Hydromorphone HCl (Dilaudid) 0.5 mg PRN Q10MIN PRN IV SEV PAIN, Second choice; Start 12/31/18 at 07:00; Stop 01/01/19 at 06:59; Status DC Prochlorperazine Edisylate (Compazine) 5 mg PACU PRN PRN IV NAUSEA, MRX1 Last administered on 12/31/18at 09:31; Start 12/31/18 at 07:00; Stop 01/01/19 at 06:59 ; Status DC Lidocaine HCl (Xylocaine 1% Pf 30ml Vial) 30 ml STK-MED ONCE .ROUTE Last administered on 12/31/18at 07:18; Start 12/31/18 at 07:02; Stop 12/31/18 at 07:03 ; Status DC Lidocaine HCl (Xylocaine 1% Pf 30ml Vial) 30 ml STK-MED ONCE .ROUTE ; Start at 07:02; Stop 12/31/18 at 07:03; Status DC Bupivacaine HCl (Sensorcaine Mpf 0.5%) 30 ml STK-MED ONCE .ROUTE Last administered on 12/31/18at 07:18; Start 12/31/18 at 07:02; Stop 12/31/18 at 07:03 ; Status DC Ondansetron HCl (Zofran) 4 mg STK-MED ONCE .ROUTE ; Start 12/31/18 at 07:05; Stop 12/31/18 at 07:06; Status DC Lidocaine HCl (Lidocaine Pf 2% Vial) 5 ml STK-MED ONCE .ROUTE ; Start 12/31/18 at 07:05; Stop 12/31/18 at 07:06; Status DC Propofol 20 ml @ As Directed STK-MED ONCE IV ; Start 12/31/18 at 07:05; Stop at 07:06; Status DC Famotidine (Pepcid Vial) 20 mg STK-MED ONCE .ROUTE ; Start 12/31/18 at 07:05; Stop 12/31/18 at 07:06; Status DC Dexamethasone Sodium Phosphate (Decadron) 20 mg STK-MED ONCE .ROUTE ; Start at 07:05; Stop 12/31/18 at 07:06; Status Cancel Fentanyl Citrate (Fentanyl 2ml Vial) 100 mcg STK-MED ONCE .ROUTE ; Start at 07:06; Stop 12/31/18 at 07:07; Status DC Desflurane (Suprane) 60 ml STK-MED ONCE IH ; Start 12/31/18 at 08:45; Stop 12/31 at 08:46; Status DC Prochlorperazine Edisylate (Compazine) 10 mg STK-MED ONCE .ROUTE ; Start at 08:57; Stop 12/31/18 at 08:58; Status DC Ondansetron HCl (Zofran) 4 mg STK-MED ONCE .ROUTE ; Start 12/31/18 at 09:39; Stop 12/31/18 at 09:40; Status DC Sodium Chloride 1,000 ml @ 100 mls/hr Q10H IV ; Start 01/03/19 at 12:00; Stop at 12:00; Status DC Lorazepam (Ativan) 0.5 mg PRN Q6HRS PRN PO ANXIETY / AGITATION Last administered on 01/07/19at 20:18; Start 01/01/19 at 23:00 Clopidogrel Bisulfate (Plavix) 75 mg DAILYWBKFT PO Last administered on at 08:50; Start 01/02/19 at 14:00 Sodium Chloride 1,000 ml @ 75 mls/hr [id number] IV Last administered on 01/04/19at 18:16; Start 01/03/19 at 12:00; Stop 01/05/19 at 18:17; Status DC Potassium Chloride (Klor-Con) 20 meq 1X ONCE PO ; Start 01/04/19 at 08:30; Stop 01/04/19 at 08:31; Status DC Lidocaine HCl (Lidocaine 1% 20ml Vial) 20 ml STK-MED ONCE .ROUTE ; Start at 14:40; Stop 01/04/19 at 14:41; Status DC Heparin Sodium/ Sodium Chloride 500 ml @ As Directed STK-MED ONCE .ROUTE ; Start 01/04/19 at 14:40; Stop 01/04/19 at 14:41; Status DC Midazolam HCl (Versed) 5 mg STK-MED ONCE .ROUTE ; Start 01/04/19 at 14:44; Stop 01/04/19 at 14:45; Status DC Fentanyl Citrate (Fentanyl 2ml Vial) 100 mcg STK-MED ONCE .ROUTE ; Start at 14:45; Stop 01/04/19 at 14:46; Status DC Heparin Sodium (Porcine) (Heparin Sodium) 10,000 unit STK-MED ONCE .ROUTE ; Start 01/04/19 at 14:45; Stop 01/04/19 at 14:46; Status DC Heparin Sodium/ Sodium Chloride (HEPARIN for ARTERIAL LINE FLUSH) 1,000 unit 1X ONCE IART Last administered on 01/04/19at 15:30; Start 01/04/19 at 15:30; Stop 01/04/19 at 15:38; Status DC Midazolam HCl (Versed) 5 mg 1X ONCE IV Last administered on 01/04/19at 15:30; Start 01/04/19 at 15:30; Stop 01/04/19 at 15:38; Status DC Fentanyl Citrate (Fentanyl 2ml Vial) 100 mcg 1X ONCE IV Last administered on at 15:30; Start 01/04/19 at 15:30; Stop 01/04/19 at 15:38; Status DC Iodixanol (Visipaque 320) 100 ml 1X ONCE IART ; Start 01/04/19 at 15:30; Stop at 15:56; Status DC Heparin Sodium (Porcine) (Heparin Sodium) 5,000 unit 1X ONCE IV Last administered on 01/04/19at 15:30; Start 01/04/19 at 15:30; Stop 01/04/19 at 15:39; Status DC Lidocaine HCl (Lidocaine 1% 20ml Vial) 20 ml 1X ONCE INJ Last administered on 01/04/19 15:30; Start 01/04/19 at 15:30; Stop 01/04/19 at 15:39; Status DC Insulin Glargine (Lantus) 18 units QHS SQ Last administered on 01/10/19at 22:45 ; Start 01/04/19 at 21:00 Iodixanol (Visipaque 320) 100 ml 1X ONCE IART Last administered on 01/04/19at 16 :30; Start 01/04/19 at 16:30; Stop 01/04/19 at 16:31; Status DC Info (CONTRAST GIVEN -- Rx MONITORING) 1 each PRN DAILY PRN MC SEE COMMENTS; Start 01/04/19 at 16:30; Stop 01/06/19 at 16:29; Status DC Albuterol/ Ipratropium (Duoneb) 3 ml RTQID NEB ; Start 01/05/19 at 08:00; Stop at 08:00; Status DC Amlodipine Besylate (Norvasc) 5 mg DAILY PO Last administered on 01/11/19at 08: 49; Start 01/05/19 at 10:30 Sodium Chloride 1,000 ml @ 75 mls/hr [id number] IV Last administered on 01/09/19at 12:40; Start 01/06/19 at 18:00; Stop 01/11/19 at 11:52; Status DC Potassium Chloride (Klor-Con) 40 meq 1X ONCE PO Last administered on 01/06/19at 12:50; Start 01/06/19 at 11:30; Stop 01/06/19 at 11:37; Status DC Tamsulosin HCl (Flomax) 0.4 mg QHS PO Last administered on 01/10/19at 22:34; Start 01/06/19 at 21:00 Iodixanol (Visipaque 320) 100 ml STK-MED ONCE .ROUTE ; Start 01/07/19 at 07:40; Stop 01/07/19 at 07:41; Status DC Lidocaine HCl (Lidocaine 1% 20ml Vial) 20 ml STK-MED ONCE .ROUTE ; Start at 07:40; Stop 01/07/19 at 07:41; Status DC Heparin Sodium/ Sodium Chloride 1,500 ml @ As Directed STK-MED ONCE .ROUTE ; Start 01/07/19 at 07:40; Stop 01/07/19 at 07:41; Status DC Midazolam HCl (Versed) 2 mg STK-MED ONCE .ROUTE ; Start 01/07/19 at 09:35; Stop 01/07/19 at 09:36; Status DC Fentanyl Citrate (Fentanyl 2ml Vial) 100 mcg STK-MED ONCE .ROUTE ; Start at 09:35; Stop 01/07/19 at 09:36; Status DC Verapamil HCl (Verapamil) 5 mg STK-MED ONCE .ROUTE ; Start 01/07/19 at 09:58; Stop 01/07/19 at 09:59; Status DC Heparin Sodium (Porcine) (Heparin Sodium) 10,000 unit STK-MED ONCE .ROUTE ; Start 01/07/19 at 09:58; Stop 01/07/19 at 09:59; Status DC Nitroglycerin (Nitroglycerin) 200 mcg STK-MED ONCE .ROUTE ; Start 01/07/19 at 09: 58; Stop 01/07/19 at 09:59; Status DC Nitroglycerin (Nitroglycerin) 200 mcg 1X ONCE IART Last administered on at 12:44; Start 01/07/19 at 11:30; Stop 01/07/19 at 11:32; Status DC Verapamil HCl (Verapamil) 2.5 mg 1X ONCE IART ; Start 01/07/19 at 11:30; Stop at 12:34; Status DC Heparin Sodium (Porcine) (Heparin Sodium) 2,500 unit 1X ONCE IART ; Start at 11:30; Stop 01/07/19 at 12:34; Status DC Heparin Sodium/ Sodium Chloride (HEPARIN for ARTERIAL LINE FLUSH) 1,000 unit 1X ONCE IART Last administered on 01/07/19at 12:43; Start 01/07/19 at 11:30; Stop 01/07/19 at 11:32; Status DC Heparin Sodium/ Sodium Chloride (HEPARIN for ARTERIAL LINE FLUSH) 1,000 unit 1X ONCE IART Last administered on 01/07/19at 12:44; Start 01/07/19 at 11:30; Stop 01/07/19 at 11:32; Status DC Midazolam HCl (Versed) 2 mg 1X ONCE IV Last administered on 01/07/19 12:45; Start 01/07/19 at 11:30; Stop 01/07/19 at 11:32; Status DC Fentanyl Citrate (Fentanyl 2ml Vial) 100 mcg 1X ONCE IV Last administered on 12:45; Start 01/07/19 at 11:30; Stop 01/07/19 at 11:32; Status DC Iodixanol (Visipaque 320) 100 ml 1X ONCE IART Last administered on 01/07/19 12 :46; Start 01/07/19 at 11:30; Stop 01/07/19 at 11:32; Status DC Heparin Sodium (Porcine) (Heparin Sodium) 6,000 unit 1X ONCE IV Last administered on 01/07/19 12:46; Start 01/07/19 at 11:30; Stop 01/07/19 at 11:32; Status DC Lidocaine HCl (Lidocaine 1% 20ml Vial) 20 ml 1X ONCE INJ Last administered on 01/07/19 12:44; Start 01/07/19 at 11:30; Stop 01/07/19 at 11:32; Status DC Midazolam HCl (Versed) 2 mg STK-MED ONCE .ROUTE ; Start 01/07/19 at 12:00; Stop 01/07/19 at 12:01; Status DC Fentanyl Citrate (Fentanyl 2ml Vial) 100 mcg STK-MED ONCE .ROUTE ; Start at 12:01; Stop 01/07/19 at 12:02; Status DC Nitroglycerin (Nitroglycerin) 200 mcg STK-MED ONCE .ROUTE ; Start 01/07/19 at 12: 26; Stop 01/07/19 at 12:27; Status DC Protamine Sulfate (Protamine) 50 mg STK-MED ONCE IV ; Start 01/07/19 at 12:28; Stop 01/07/19 at 12:29; Status DC Protamine Sulfate (Protamine) 30 mg 1X ONCE IV Last administered on 01/07/19at 12:45; Start 01/07/19 at 12:45; Stop 01/07/19 at 12:46; Status DC Sodium Chloride 1,000 ml @ 150 mls/hr Q6H40M IV Last administered on 01/08/19at 05:54; Start 01/07/19 at 13:15; Stop 01/08/19 at 09:00; Status DC Potassium Chloride (Klor-Con) 40 meq 1X ONCE PO Last administered on 01/09/19at 11:35; Start 01/09/19 at 11:15; Stop 01/09/19 at 11:16; Status DC Lidocaine/Sodium Bicarbonate (Buffered Lidocaine 1%) 3 ml STK-MED ONCE .ROUTE ; Start 01/11/19 at 12:18; Stop 01/11/19 at 12:19; Status DC Lidocaine/Sodium Bicarbonate (Buffered Lidocaine 1%) 3 ml 1X ONCE INJ ; Start 01/11/19 at 12:30; Stop 01/11/19 at 12:31; Status DC Active Scripts Active Reported Niaspan (Niacin) 500 Mg Tab.er.24h 500 Mg PO HS Hydrochlorothiazide Tablet (Hydrochlorothiazide) 12.5 Mg Tablet 25 Mg PO DAILY Metoprolol Succinate ( Xl ) (Metoprolol Succinate) 25 Mg Tab.er.24h 25 Mg PO DAILY Lipitor (Atorvastatin Calcium) 40 Mg Tablet 40 Mg PO HS Trulicity (Dulaglutide) 1.5 Mg/0.5 Ml Pen.injctr 1.5 Mg SQ WEEKLY Toujeo Solostar (Insulin Glargine,Hum.rec.anlog) 300 Unit/1 Ml Insuln.pen 40 Unit SQ HS Aspirin 81 Mg Tab.chew 81 Mg PO BID Glimepiride 4 Mg Tablet 4 Mg PO BIDAC Synthroid (Levothyroxine Sodium) 50 Mcg Tablet 50 Mcg PO DAILYAC Vitamin D3 (Cholecalciferol (Vitamin D3)) 5,000 Unit Tablet 5,000 Unit PO DAILY Vital Signs Vital Signs Date Time Temp Pulse Resp B/P (MAP) Pulse Ox O2 Delivery O2 Flow Rate FiO2 01/11/19 11:13 97.5 91 18 135/64 (87) 97 Room Air 97.5 01/10/19 11:22 2.0 Labs Laboratory Tests Test 01/09/19 16:35 01/09/19 20:43 01/10/19 07:35 01/10/19 07:55 Glucose (Fingerstick) 162 mg/dL (70-99) 109 mg/dL (70-99) White Blood Count 6.5 x10^3/uL (4.0-11.0) Red Blood Count 2.57 x10^6/uL (4.30-5.70) Hemoglobin 7.6 g/dL (13.0-17.5) Hematocrit 23.2 % (39.0-53.0) Mean Corpuscular Volume 90 fL (79-100) Mean Corpuscular Hemoglobin 30 pg (25-35) Mean Corpuscular Hemoglobin Concent 33 g/dL (31-37) Red Cell Distribution Width 13.9 % (11.5-14.5) Platelet Count 130 x10^3/uL (140-400) Neutrophils (%) (Auto) 64 % (31-73) Lymphocytes (%) (Auto) 19 % (24-48) Monocytes (%) (Auto) 8 % (0-9) Eosinophils (%) (Auto) 8 % (0-3) Basophils (%) (Auto) 1 % (0-3) Neutrophils # (Auto) 4.1 x10^3uL (1.8-7.7) Lymphocytes # (Auto) 1.2 x10^3/uL (1.0-4.8) Monocytes # (Auto) 0.5 x10^3/uL (0.0-1.1) Eosinophils # (Auto) 0.5 x10^3/uL (0.0-0.7) Basophils # (Auto) 0.1 x10^3/uL (0.0-0.2) Sodium Level 144 mmol/L (136-145) Potassium Level 4.2 mmol/L (3.5-5.1) Chloride Level 106 mmol/L (98-107) Carbon Dioxide Level 26 mmol/L (21-32) Anion Gap 12 (6-14) Blood Urea Nitrogen 21 mg/dL (8-26) Creatinine 1.8 mg/dL (0.7-1.3) Estimated GFR (Cockcroft-Gault) 37.3 BUN/Creatinine Ratio 12 (6-20) Glucose Level 91 mg/dL (70-99) Calcium Level 8.4 mg/dL (8.5-10.1) Total Bilirubin 0.5 mg/dL (0.2-1.0) Aspartate Amino Transf (AST/SGOT) 23 U/L (15-37) Alanine Aminotransferase (ALT/SGPT) 20 U/L (16-63) Alkaline Phosphatase 85 U/L (46-116) Total Protein 5.8 g/dL (6.4-8.2) Albumin 2.0 g/dL (3.4-5.0) Albumin/Globulin Ratio 0.5 (1.0-1.7) Test 01/10/19 07:59 01/10/19 11:27 01/10/19 11:45 01/10/19 16:17 Glucose (Fingerstick) 82 mg/dL (70-99) 167 mg/dL (70-99) 160 mg/dL (70-99) 141 mg/dL (70-99) Test 01/10/19 20:51 01/11/19 03:45 01/11/19 07:17 01/11/19 10:58 Glucose (Fingerstick) 165 mg/dL (70-99) 77 mg/dL (70-99) 143 mg/dL (70-99) White Blood Count 6.7 x10^3/uL (4.0-11.0) Red Blood Count 2.54 x10^6/uL (4.30-5.70) Hemoglobin 7.5 g/dL (13.0-17.5) Hematocrit 22.8 % (39.0-53.0) Mean Corpuscular Volume 90 fL (79-100) Mean Corpuscular Hemoglobin 30 pg (25-35) Mean Corpuscular Hemoglobin Concent 33 g/dL (31-37) Red Cell Distribution Width 13.7 % (11.5-14.5) Platelet Count 131 x10^3/uL (140-400) Neutrophils (%) (Auto) 68 % (31-73) Lymphocytes (%) (Auto) 17 % (24-48) Monocytes (%) (Auto) 6 % (0-9) Eosinophils (%) (Auto) 8 % (0-3) Basophils (%) (Auto) 1 % (0-3) Neutrophils # (Auto) 4.5 x10^3uL (1.8-7.7) Lymphocytes # (Auto) 1.1 x10^3/uL (1.0-4.8) Monocytes # (Auto) 0.4 x10^3/uL (0.0-1.1) Eosinophils # (Auto) 0.6 x10^3/uL (0.0-0.7) Basophils # (Auto) 0.1 x10^3/uL (0.0-0.2) Sodium Level 142 mmol/L (136-145) Potassium Level 3.9 mmol/L (3.5-5.1) Chloride Level 105 mmol/L (98-107) Carbon Dioxide Level 24 mmol/L (21-32) Anion Gap 13 (6-14) Blood Urea Nitrogen 21 mg/dL (8-26) Creatinine 1.7 mg/dL (0.7-1.3) Estimated GFR (Cockcroft-Gault) 39.8 BUN/Creatinine Ratio 12 (6-20) Glucose Level 95 mg/dL (70-99) Calcium Level 8.7 mg/dL (8.5-10.1) Total Bilirubin 0.8 mg/dL (0.2-1.0) Aspartate Amino Transf (AST/SGOT) 22 U/L (15-37) Alanine Aminotransferase (ALT/SGPT) 18 U/L (16-63) Alkaline Phosphatase 84 U/L (46-116) Total Protein 6.6 g/dL (6.4-8.2) Albumin 2.0 g/dL (3.4-5.0) Albumin/Globulin Ratio 0.4 (1.0-1.7) Laboratory Tests Test 01/10/19 16:17 01/10/19 20:51 01/11/19 03:45 01/11/19 07:17 Glucose (Fingerstick) 141 mg/dL (70-99) 165 mg/dL (70-99) 77 mg/dL (70-99) White Blood Count 6.7 x10^3/uL (4.0-11.0) Red Blood Count 2.54 x10^6/uL (4.30-5.70) Hemoglobin 7.5 g/dL (13.0-17.5) Hematocrit 22.8 % (39.0-53.0) Mean Corpuscular Volume 90 fL (79-100) Mean Corpuscular Hemoglobin 30 pg (25-35) Mean Corpuscular Hemoglobin Concent 33 g/dL (31-37) Red Cell Distribution Width 13.7 % (11.5-14.5) Platelet Count 131 x10^3/uL (140-400) Neutrophils (%) (Auto) 68 % (31-73) Lymphocytes (%) (Auto) 17 % (24-48) Monocytes (%) (Auto) 6 % (0-9) Eosinophils (%) (Auto) 8 % (0-3) Basophils (%) (Auto) 1 % (0-3) Neutrophils # (Auto) 4.5 x10^3uL (1.8-7.7) Lymphocytes # (Auto) 1.1 x10^3/uL (1.0-4.8) Monocytes # (Auto) 0.4 x10^3/uL (0.0-1.1) Eosinophils # (Auto) 0.6 x10^3/uL (0.0-0.7) Basophils # (Auto) 0.1 x10^3/uL (0.0-0.2) Sodium Level 142 mmol/L (136-145) Potassium Level 3.9 mmol/L (3.5-5.1) Chloride Level 105 mmol/L (98-107) Carbon Dioxide Level 24 mmol/L (21-32) Anion Gap 13 (6-14) Blood Urea Nitrogen 21 mg/dL (8-26) Creatinine 1.7 mg/dL (0.7-1.3) Estimated GFR (Cockcroft-Gault) 39.8 BUN/Creatinine Ratio 12 (6-20) Glucose Level 95 mg/dL (70-99) Calcium Level 8.7 mg/dL (8.5-10.1) Total Bilirubin 0.8 mg/dL (0.2-1.0) Aspartate Amino Transf (AST/SGOT) 22 U/L (15-37) Alanine Aminotransferase (ALT/SGPT) 18 U/L (16-63) Alkaline Phosphatase 84 U/L (46-116) Total Protein 6.6 g/dL (6.4-8.2) Albumin 2.0 g/dL (3.4-5.0) Albumin/Globulin Ratio 0.4 (1.0-1.7) Test 01/11/19 10:58 Glucose (Fingerstick) 143 mg/dL (70-99) Allergies Allergies Coded Allergies Type Severity Reaction Last Updated Verified No Known Drug Allergies 04/10/17 No Disposition/Orders: Other (TO [facility] [place]) SUSAN COSTA MD Jan 11, 2019 13:53
[2019-01-11] MEDS ORDERED: LACT1CAP19 PO (13:58)
[2019-01-11] MEDS ORDERED: MULT1TAB90 PO (13:58)
[2019-01-11] MEDS ORDERED: PIPE2.255 MC (13:58)
[2019-01-11] MEDS ORDERED: AMLO5TAB10 PO (13:58)
[2019-01-11] MEDS ORDERED: CLOP75TA PO (13:58)
[2019-01-11] MEDS ORDERED: TAMS0.4C97 PO (13:58)
[2019-01-11] MEDS ORDERED: ACET1TAB33 PO (13:58)
[2019-01-11] MEDS ORDERED: ASPI-612 PO (13:58)
--- NOTE | 2019-01-11 13:59 | SNU/HH DC ---
DISCHARGE ORDERS DISCHARGE INFORMATION: CONDITION ON DISCHARGE: Stable CODE STATUS: Code Status: Full ALF: SNF STAY <30 DAYS: Yes HOSPICE: HOSPICE: No HOSPICE EVAL & TREAT: No LTAC: ADMIT TO LTAC: No POST DISCHARGE ORDERS: WEIGHT BEARING STATUS: Partial weight bearing DIET AFTER DISCHARGE: Cardiac WOUND/INCISION CARE: Keep wound elevated, Change dressing CHECKS AFTER DISCHARGE: CHECKS AFTER DISCHARGE: Check blood press - daily TREATMENT/EQUIPMENT ORDERS: Physical Therapy For: Evalulation/Treatment Occupational Therapy For: Evaluation/Treatment DISCHARGE MEDICATIONS: Home Meds Active Scripts Multivits,Ca,Minerals/Iron/Fa (THERA-M TABLET) 1 Each Tablet, 1 TAB PO DAILY for SUPPLEMENT for 30 Days, #30 TAB Prov:SUSAN COSTA MD 01/11/19 Lactobacillus Rhamnosus Gg (CULTURELLE) 1 Each Cap.sprink, 1 CAP PO BID for GI SUPPLEMENT for 14 Days, #28 CAP Prov:SUSAN COSTA MD 01/11/19 Acetaminophen With Codeine (ACETAMINOPHEN-COD #3 TABLET) 1 Each Tablet, 1 TAB PO PRN Q6HRS PRN for MODERATE TO SEVERE PAIN for 14 Days, #60 TAB Prov:SUSAN COSTA MD 01/11/19 Aspirin (ASPIRIN EC) 81 Mg Tablet.dr, 81 MG PO DAILYWBKFT for BLOOD FLOW for 30 Days, #30 TAB.SR Prov:SUSAN COSTA MD 01/11/19 Amlodipine Besylate (AMLODIPINE BESYLATE) 5 Mg Tablet, 5 MG PO DAILY for BP for 30 Days, #30 TAB Prov:SUSAN COSTA MD 01/11/19 Clopidogrel Bisulfate (CLOPIDOGREL) 75 Mg Tablet, 75 MG PO DAILYWBKFT for VASCULAR DISEASE for 30 Days, #30 TAB Prov:SUSAN COSTA MD 01/11/19 Tamsulosin Hcl (FLOMAX) 0.4 Mg Cap.er.24h, 0.4 MG PO QHS for BPH for 30 Days, # 30 CAP.SR Prov:SUSAN COSTA MD 01/11/19 Piperacillin Sodium/Tazobactam (ZOSYN 2.25 GRAM VIAL) 2.25 Gm Vial, 1 EACH MC PRN DAILY PRN for SEE COMMENTS for 14 Days, #90 EACH Prov:SUSAN COSTA MD 01/11/19 Reported Medications Niacin (NIASPAN) 500 Mg Tab.er.24h, 500 MG PO HS, TAB.SR 04/09/17 Hydrochlorothiazide (HYDROCHLOROTHIAZIDE TABLET) 12.5 Mg Tablet, 25 MG PO DAILY for DIURETIC, TAB 0 Refills 04/09/17 Metoprolol Succinate (METOPROLOL SUCCINATE ( XL )) 25 Mg Tab.er.24h, 25 MG PO DAILY for FOR HYPERTENSION, #30 TAB 0 Refills 04/09/17 Atorvastatin Calcium (LIPITOR) 40 Mg Tablet, 40 MG PO HS for FOR CHOLESTEROL, # 30 TAB 0 Refills 04/09/17 Dulaglutide (Trulicity) 1.5 Mg/0.5 Ml Pen.injctr, 1.5 MG SQ WEEKLY, EACH 04/09/17 Insulin Glargine,Hum.rec.anlog ([place] Solostar) 300 Unit/1 Ml Insuln.pen, 40 UNIT SQ HS, EACH 04/09/17 Aspirin (ASPIRIN) 81 Mg Tab.chew, 81 MG PO BID, TAB.CHEW 04/09/17 Glimepiride (GLIMEPIRIDE) 4 Mg Tablet, 4 MG PO BIDAC, TAB 04/09/17 Levothyroxine Sodium (SYNTHROID) 50 Mcg Tablet, 50 MCG PO DAILYAC for THYROID SUPPLEMENT, #30 TAB 0 Refills 04/09/17 Cholecalciferol (Vitamin D3) (VITAMIN D3) 5,000 Unit Tablet, 5000 UNIT PO DAILY , TAB 04/09/17 Discontinued Reported Medications Ciprofloxacin Hcl (CIPRO) 500 Mg Tablet, 1 TAB PO BID, #6 TAB 04/10/17 SUSAN COSTA MD Jan 11, 2019 13:59
[2019-01-11] MEDS ORDERED: LINE600I IV (14:02)
[2019-01-11 14:23] VITALS: BP 124/55
--- NOTE | 2019-01-11 15:48 | NUR ---
SS following up with discharge planning. Discharge orders received for [facility]. SS phoned and faxed discharge orders to [facility], ; fax [phone]. Pt will discharge and go to [facility] at 1630. [facility] to provide transport. Pt, pt's RN, and pt's son notified.
--- NOTE | 2019-01-11 16:30 | NUR ---
Discharge Note: EVE DEMPSEY W2 HUE Discharge instructions and discharge home medications reviewed with Other facility Misty Nurse and a copy given. All questions have been answered and understanding verbalized. The following instructions and handouts were given: PVD, fem pop care after, fall prevention in hospitals Peripheral IV discontinued and Patient discharged with DL PICC for IV antibiotics Patient [facility] to [facility] with [facility] van personnel via Wheelchair
--- NOTE | 2019-01-12 08:55 | RAD ---
Procedure: Upper extremity PICC line placement Clinical Indication: 73-year-old requiring long-term venous access Sedation: Local anesthesia only was provided Antibiotics: None Fluoro Time: 0.8 minutes. Images: 1 Contrast: None Sterility: All elements of maximal sterile barrier technique including the use of a cap, mask, sterile gown, sterile gloves, large sterile sheet, appropriate hand hygiene, and 2% chlorhexidine for cutaneous antisepsis (or acceptable alternative antiseptic per current guidelines) were followed for this procedure. Consent: The procedure was explained in its entirety to the patient or the patients designated telesales representative by a member of the treatment team, including a discussion of the risks, benefits and commonly accepted alternatives to the procedure, as well as the expected consequences of no therapy whatsoever. Discussion of the risks included, but was not limited to, those that are most frequent and those that are rare but possibly severe or life-threatening, as well as the possibility of unforeseen complications. Technique and Findings: Following informed consent, the patient was prepped and draped in the usual sterile fashion. Ultrasound interrogation of the right arm revealed patency and compressibility of the right basilic vein. A hard copy ultrasound image was recorded. 1% Lidocaine was used to achieve local anesthesia and a 21-gauge micropuncture needle was used to gain access to the targeted vein. The needle was exchanged over wire for a 5 [place] Islander peel-away sheath which was used to deploy a PICC line under fluoroscopic guidance such that the distal tip resided at the cavoatrial junction. The catheter flushed and aspirated with ease and was sutured to the skin. Complications: No immediate Impression: 1. Ultrasound guided PICC line placement as described.
[2019-04-13] MEDS ORDERED: FURO40TA4 PO (10:30)
[2019-04-13] MEDS ORDERED: HYDR-2145 PO (10:30)
[2019-04-13] MEDS ORDERED: MELA3TAB2 PO (10:30)
[2019-04-13] MEDS ORDERED: GLIM4TAB2 PO (10:30)
[2019-04-13] MEDS ORDERED: POTA20TA82 PO (10:30)
[2019-04-13] MEDS ORDERED: INSU100V13 SQ (10:31)
[2019-04-13] MEDS ORDERED: ACET-704 PO (18:51)
== END 2019-01-11 16:30 | DRG 853 ==
LOC: 4 NORTH 15:07 → 2 NORTH 01-04 17:18
PROVIDERS: ADMIT Internal Medicine; ATTEND Internal Medicine
PROC: B41F1ZZ Fluoroscopy of Right Lower Extremity Arteries using Low Osmolar Contrast (ICD-10-PCS; principal; 2018-12-30)
PROC: 047T3ZZ Dilation of Right Peroneal Artery, Percutaneous Approach (ICD-10-PCS; 2018-12-30)
PROC: 0Y6M0Z9 Detachment at Right Foot, Partial 1st Ray, Open Approach (ICD-10-PCS; 2018-12-31)
PROC: 0Y6M0ZB Detachment at Right Foot, Partial 2nd Ray, Open Approach (ICD-10-PCS; 2018-12-31)
PROC: 0Y6M0ZC Detachment at Right Foot, Partial 3rd Ray, Open Approach (ICD-10-PCS; 2018-12-31)
PROC: 0Y6M0ZD Detachment at Right Foot, Partial 4th Ray, Open Approach (ICD-10-PCS; 2018-12-31)
PROC: 0Y6M0ZF Detachment at Right Foot, Partial 5th Ray, Open Approach (ICD-10-PCS; 2018-12-31)
PROC: 0QBR0ZZ Excision of Left Toe Phalanx, Open Approach (ICD-10-PCS; 2018-12-31)
PROC: 047K3ZZ Dilation of Right Femoral Artery, Percutaneous Approach (ICD-10-PCS; 2019-01-05)
PROC: 047L3ZZ Dilation of Left Femoral Artery, Percutaneous Approach (ICD-10-PCS; 2019-01-05)
PROC: 047Q3ZZ Dilation of Left Anterior Tibial Artery, Percutaneous Approach (ICD-10-PCS; 2019-01-05)
PROC: 047U3ZZ Dilation of Left Peroneal Artery, Percutaneous Approach (ICD-10-PCS; 2019-01-05)
PROC: 047Q3ZZ Dilation of Left Anterior Tibial Artery, Percutaneous Approach (ICD-10-PCS; 2019-01-07)
PROC: 047U3ZZ Dilation of Left Peroneal Artery, Percutaneous Approach (ICD-10-PCS; 2019-01-07)
PROC: 02HV33Z Insertion of Infusion Device into Superior Vena Cava, Percutaneous Approach (ICD-10-PCS; 2019-01-07)
PROC: B5181ZA Fluoroscopy of Superior Vena Cava using Low Osmolar Contrast, Guidance (ICD-10-PCS; 2019-01-07)
PROC: B548ZZA Ultrasonography of Superior Vena Cava, Guidance (ICD-10-PCS; 2019-01-07)
DX: A41.9 Sepsis, unspecified organism (principal); E43 Unspecified severe protein-calorie malnutrition; L03.115 Cellulitis of right lower limb; E11.52 Type 2 diabetes mellitus with diabetic peripheral angiopathy with gangrene; I70.261 Atherosclerosis of native arteries of extremities with gangrene, right leg; M86.8X7 Other osteomyelitis, ankle and foot; E11.621 Type 2 diabetes mellitus with foot ulcer; E11.69 Type 2 diabetes mellitus with other specified complication; I10 Essential (primary) hypertension; L97.529 Non-pressure chronic ulcer of other part of left foot with unspecified severity; D64.9 Anemia, unspecified; D69.6 Thrombocytopenia, unspecified; E11.22 Type 2 diabetes mellitus with diabetic chronic kidney disease; E66.9 Obesity, unspecified; I12.9 Hypertensive chronic kidney disease with stage 1 through stage 4 chronic kidney disease, or unspecified chronic kidney disease; E11.65 Type 2 diabetes mellitus with hyperglycemia; I25.10 Atherosclerotic heart disease of native coronary artery without angina pectoris; I69.320 Aphasia following cerebral infarction; I70.202 Unspecified atherosclerosis of native arteries of extremities, left leg; Z68.33 Body mass index [BMI] 33.0-33.9, adult; N18.3 Chronic kidney disease, stage 3 (moderate); Z79.4 Long term (current) use of insulin; Z82.0 Family history of epilepsy and other diseases of the nervous system; Z83.3 Family history of diabetes mellitus; Z87.891 Personal history of nicotine dependence; Z95.5 Presence of coronary angioplasty implant and graft; L97.509 Non-pressure chronic ulcer of other part of unspecified foot with unspecified severity; Z68.34 Body mass index [BMI] 34.0-34.9, adult
CPT/HCPCS: 36415; 36569; 37224; 37228; 37232; 73630; 75710; 76937; 77001; 80048; 80053; 82962; 83036; 84145; 85025; 85027; 85347; 85610; 85651; 86140; 87493; 88305; 88311; 90471; 90756; 93925; 93971; 99152; 99153; A7015; C1713; C1751; C1760; C1769; C1885; C1892; C2623; G0269; J0780; J1100; J1644; J1815; J2001; J2020; J2250; J2405; J2543; J2704; J3010; J3490; J7030; J7040; J7042; J7120; Q9967; 97110; 97116; 97530; 97535; C1771; Q2035

== ENCOUNTER 2019-01-20 17:09 | Inpatient (IN) | payer OTHER ==
[~2019-01-20] VITALS: Ht 170.2 cm; Wt 100.6 kg
[~2019-01-20 17:09] MED LIST changes: +ACET1TAB33 PO; +AMLO5TAB10 PO; +ASPI-612 PO; +CLOP75TA PO; +LACT1CAP19 PO; +LINE600I IV; +MULT1TAB90 PO; +PIPE2.255 MC; +TAMS0.4C97 PO
--- NOTE | 2019-01-20 20:00 | NUR ---
Pt arrived via EMS from [facility] at approx 1940. He is alert and oriented x4, although is occasionally confused about points of time and situation, but is a good historian, at least per recent history as he relates his Hgb lab values accurately. His DPOA son Maxwell, arrives within one hour of Mr. Watson's arrival. VSS, on RA. no complaints of pain. Black cam post op boot for R foot amputation and blue platform shoe for L foot. DFU of L great toe, picture in chart. SR on monitor.
[2019-01-20 20:57] VITALS: BP 108/55
[2019-01-20] MEDS ORDERED: 0.9 % SODIUM CHLORIDE 10 ML DISP.SYRIN. IV PRN (21:00)
[2019-01-20 23:00] VITALS: BP 143/67
[2019-01-20] MEDS ORDERED: FERR325T14 PO (23:14)
[2019-01-20] MEDS ORDERED: ACETAMINOPHEN/CODEINE 300/30MG TABLET. PO PRN (23:15)
[2019-01-20] MEDS ORDERED: DEXTROSE 50% 25 GM / 50ML DISP.SYRIN. IV PRN (23:30)
[2019-01-21] VITALS (14 sets, daily range): BP systolic 84–151; BP diastolic 44–70
[2019-01-21] MEDS ORDERED: PIPERACILLIN/TAZOBACTAM 2.25 GM VIAL IV SCH
[2019-01-21] MEDS: INSULIN GLARGINE 300 UNITS/3 ML INSULN.PEN. SQ SCH ×2 (00:18→23:09)
[2019-01-21] MEDS: PIPERACILLIN/TAZOBACTAM 2.25 GM in IV NORMAL SALINE 50ML 50 ML IV SCH ×5 (00:20→23:13)
[2019-01-21 04:23] LABS: BASO # 0.1 x10^3/uL (0.0-0.2); BASO % 1 % (0-3); EOS # 0.3 x10^3/uL (0.0-0.7); EOS % 4 % (0-3); HEMATOCRIT 22.3 % (39.0-53.0); HEMOGLOBIN 7.5 g/dL (13.0-17.5); LYMPH # 1.1 x10^3/uL (1.0-4.8); LYMPH % 14 % (24-48); MEAN CORPUSCULAR HEMOGLOBIN 30 pg (25-35); MEAN CORPUSCULAR HGB CONC 34 g/dL (31-37); MEAN CORPUSCULAR VOLUME 88 fL (79-100); MONO # 1.1 x10^3/uL (0.0-1.1); MONO % 15 % (0-9); NEUT # 4.9 x10^3uL (1.8-7.7); NEUT % 66 % (31-73); PLATELET COUNT 138 x10^3/uL (140-400); RED BLOOD COUNT 2.52 x10^6/uL (4.30-5.70); RED CELL DISTRIBUTION WIDTH 13.7 % (11.5-14.5); WHITE BLOOD COUNT 7.5 x10^3/uL (4.0-11.0)
[2019-01-21 04:34] LABS: PROTHROMBIN TIME PATIENT 15.3 SEC (11.7-14.0)
[2019-01-21 05:08] LABS: ALBUMIN 2.5 g/dL (3.4-5.0); ALBUMIN/GLOBULIN RATIO 0.8 (1.0-1.7); CALCIUM 8.5 mg/dL (8.5-10.1); POTASSIUM 3.9 mmol/L (3.5-5.1); TOTAL BILIRUBIN 0.6 mg/dL (0.2-1.0); TOTAL PROTEIN 5.8 g/dL (6.4-8.2)
[2019-01-21] MEDS: LEVOTHYROXINE 50 MCG TABLET PO SCH (06:11)
--- NOTE | 2019-01-21 06:30 | NUR ---
After having been awake all night, Mr. Watson is asleep at 0600.
[2019-01-21] MEDS: GLIMEPIRIDE 2 MG TABLET. PO SCH ×2 (08:00→18:14)
[2019-01-21] MEDS: INSULIN LISPRO 300 UNITS/3 ML INSULN.PEN. SQ SCH ×3 (08:00→17:00)
[2019-01-21] MEDS: MULTIVITAMIN with MINERAL TABLET. PO SCH (09:00)
[2019-01-21] MEDS: CHOLECALCIFEROL (VITAMIN D3) 5,000 UNIT CAPSULE PO SCH (09:00)
[2019-01-21] MEDS ORDERED: C.DIFF MED SCREEN BY RX. MC ONE (09:00)
[2019-01-21] MEDS: LACTOBACILLUS RHAMNOSUS GG 1 CAPSULE. PO SCH ×2 (09:00→23:12)
[2019-01-21] MEDS: ASPIRIN ENTERIC COATED 81 MG TABLET.DR. PO SCH (09:02)
[2019-01-21] MEDS: METOPROLOL SUCC 24HR ER 25 MG TAB.ER.24H. PO SCH (09:02)
[2019-01-21] MEDS: amLODIPine BESYLATE 5 MG TABLET PO SCH (09:03)
[2019-01-21] MEDS ORDERED: EPOETIN ALFA 20,000 UNIT/ML VIAL. SQ ONE (09:45)
--- NOTE | 2019-01-21 10:43 | NUR ---
SS following up with discharge planning. SS received notification that pt was from [facility] [place] [facility], ; fax [phone], to verify pt's previous placement. [facility] verified that pt was a skilled rehabilitation resident from there facility and was able to return pending insurance authorization from [employer]. Pt will need PT/OT evaluations. SS will await PT/OT notes and will proceed accordingly.
[2019-01-21] MEDS ORDERED: LIDOCAINE 1% Multi-Dose 20 ML VIAL. ONE (11:27)
--- NOTE | 2019-01-21 12:13 | NUR ---
Wound Consult: Consult to eval and treat L plantar great toe DFU and R TMA incision. Wounds cleansed, R TMA measured and pictured per protocol (see detailed assessments). Lateral R edge of R TMA is red and indurated, pt wearing half shoe. Covered with xeroform and 4x4, wrapped with kerlix. Recommending to consult Cyndi who originally amputated for further care guidance. L great tow has 100% dry slough to wound bed and some callus to periwound. Applied medihoney and xeroform and foam dressing. Plan to follow up 01/27/19 pending recommendations by Cyndi.
[2019-01-21] MEDS ORDERED: MIDAZOLAM HCL/PF 2 MG/2 ML VIAL. ONE (12:16)
[2019-01-21] MEDS ORDERED: fentaNYL PF VIAL 100 MCG/2 ML VIAL ONE (12:16)
--- NOTE | 2019-01-21 12:17 | HP ---
ADMIT DATE: 01/20/2019 HISTORY OF PRESENT ILLNESS: The patient is a 73-year-old male patient who was originally admitted to [facility] on 01/15/2019 with altered mental status. While in the Emergency Room, he was found to have hemoglobin of 6.9. Apparently, he has had his right forefoot amputation done a week prior to admission at [facility] and continued to have some oozing around that area; however, the patient denied any hematemesis, melena or hematochezia. Denied any hematuria, epistaxis or hemoptysis. He did have diarrhea about 4-6 times per day and has been receiving antibiotic in the form of meropenem for osteomyelitis of his right foot at the [facility] and [facility]. 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 PAST MEDICAL HISTORY: Significant for coronary artery disease, type 2 diabetes, hypothyroidism, hyperlipidemia, hypertension, peripheral vascular disease, status post right forefoot amputation. ALLERGIES: He has no known drug allergies. MEDICATIONS: He was transferred to [facility] to continue on following medications: Ferrous sulfate 325 mg once a day, Humalog insulin as insulin sliding scale before meals, Tylenol with Codeine 1 tablet every 6 hours, amlodipine 5 mg once a day, aspirin 81 mg once a day, atorvastatin calcium 40 mg at bedtime, cholecalciferol 5000 International Units once a day, Plavix 75 mg once a day, Trulicity 1.5 mg in 0.5 mL subQ daily for diabetes, glimepiride 1 mg twice a day, hydrochlorothiazide 25 mg daily. He is on Lantus insulin 40 units at bedtime, lactobacillus acidophilus 1 capsule twice a day, levothyroxine 50 mcg once a day, metoprolol succinate 25 mg once a day, multivitamin 1 tablet once a day, Niaspan 500 mg at bedtime and Zosyn 2.25 grams IV q.6 hourly and Flomax 0.4 mg at bedtime. FAMILY HISTORY: Unremarkable. SOCIAL HISTORY: , has 1 son. He currently lives with his sister. He does not smoke, drink alcohol or use recreational drugs. REVIEW OF SYSTEMS: As per history of present illness. PHYSICAL EXAMINATION: GENERAL: On examining him today, he was resting slightly propped up in his recliner, in no apparent respiratory distress, pale, but no jaundice, cyanosis or thyromegaly. No jugular venous distension. Marked bilateral lower limb edema. VITAL SIGNS: His heart rate was 76, blood pressure 126/62, temperature was 97.8, respiratory rate was 17 and oxygen saturation was 98% on room air. HEAD, EYES, EARSE, NOSE AND THROAT: Showed normocephalic, atraumatic. NECK: Supple. HEART: Showed normal first and second heart sounds. No gallop, rub or murmur. CHEST: Clear to auscultation. No crepitation or rhonchi. ABDOMEN: Distended, soft, nontender. NEUROLOGIC: He is awake, alert, responding appropriately. All cranial nerves intact. He moves extremities without difficulty, ambulates with a walker. LABORATORY DATA: Showed a white cell count 7500, hemoglobin 7.5, hematocrit 22.3, MCV 88 and platelet count of 138,000, with normal manual differential. His chemistry showed a serum sodium of 146, potassium 3.9, chloride 107, bicarbonate 30, anion gap of 9, BUN 22, creatinine 2. His estimated GFR was 53 mL per minute. His glucose 218, calcium was 8.5. Total bilirubin, AST, ALT were normal. Alkaline phosphatase was high at 157. Total protein was 5.8, albumin was 2.5. His prothrombin time was 15.3, INR 1.2. IMPRESSION: In summary, this is a 73-year-old male patient with severe peripheral vascular disease, severe bilateral lower extremity edema, questionable right-sided heart failure that is refractory to diuresis. PLAN: To continue with all his medication. Continue with the IV antibiotic. There is osteomyelitis. Continue to monitor his blood sugar and adjust insulin as needed. We will consult the cardiology team for Dr. Kate was planning to do a right heart catheterization, consult the vascular surgeon, wound care team and Nephrology as he probably require Epogen for his anemia of chronic kidney disease. RUCHI SERNA MD DR: NICOLASA/marcial JOB#: [id number] / [id number]
--- NOTE | 2019-01-21 12:17 | NUR ---
Wound Care: PU prevention education provided to pt, no other open areas noted on head to toe assessment.
[2019-01-21] MEDS ORDERED: IODIXANOL 320 MG/ML 100 ML VIAL. IART ONE (12:45)
[2019-01-21] MEDS ORDERED: MIDAZOLAM HCL/PF 2 MG/2 ML VIAL. IV ONE (12:45)
[2019-01-21] MEDS ORDERED: LIDOCAINE 1% Multi-Dose 20 ML VIAL. INJ ONE (12:45)
[2019-01-21] MEDS ORDERED: fentaNYL PF VIAL 100 MCG/2 ML VIAL IV ONE (12:45)
--- NOTE | 2019-01-21 13:27 | CARD ---
MR#: [id number] Date of Study: 01/21/2019 Ordering Physician: DANIELLA INMAN, Referring Physician: RUCHI SERNA Tech: RT Clinton (R) SHAUNA APPROVED REPORT Technologist: RT Clinton (R) SHAUNA Nurse: Fiorella Kessler RN Procedure(s) performed: Moderate sedation: 30 minutes [facility] HISTORY The patient is a 73 year-old male with a history of : renal failure without dialysis, hypertension, d yslipidemia. INDICATION The indication(s) include : peripheral edema, dyspnea. PROCEDURE NARRATIVE Clinical information: 73-year-old man with severe peripheral arterial disease presenting to the catheterization laboratory in the setting of chronic kidney disease and severe lower extremity edema with progressive worsening of renal function after diuresis. Informed consent was obtained. On the right neck was prepped and draped in usual sterile fashion. Usi ng ultrasound guidance a 18-gauge needle was used to access the right internal jugular vein and a J-t ipped guidewire was advanced without any difficulty. Next, an 8 Khmer sheath was placed. Through thi s 8 Khmer sheath a PA catheter was advanced to the right heart chambers and measures and saturations were obtained. Findings: RA: 10 mm Hg RV: 35/12 PA: 35/15 PCWP: 12 PA sat: 78% TD CO: 5 L/min At the completion of the case the right IJ sheath was removed along with the [place] catheter and m anual pressure was held and hemostasis was achieved without any complications. Conclusion 1. Normal left-sided filling pressures. 2. Mildly elevated right-sided filling pressures, no significant pulmonary hypertension Recommendations 1. Patient is euvolemic and the lower extremity edema is likely due to venous insufficiency. No furth er aggressive diuresis necessary. Continue wound care and lower extremity compression therapy as tole rated for chronic venous insufficiency. Signed by : Daniella Inman, Electronically Approved : 01/21/2019 13:26:42
--- NOTE | 2019-01-21 13:30 | NUR ---
Pt back to unit s/p cardiac cath. Surgical site assessed in right IJ. Dressing clean/dry/intact. HOB elevated. Vitals signs within normal range. Son at bedside. Call light within reach. Will continue to monitor.
--- NOTE | 2019-01-21 14:30 | NUR ---
Upon entering patient room, pt was found sitting on edge of bed with both side rails up. Pt was distraught and gown was around pt waist. Pt was complaining, stating that "this must be some kind of hospital joke". When asked what the joke was, he stated that all of these things attached to me. Pt was educated on the post cardiac cath protocol with vital sign timing. He stated that we need to come in each time and put the cuff on his arm instead of leaving it in place. It was explained to him that staff isn't always available throughout the post cath recovery to come in at appopriate times and the automatic cuff helps staff to obtain vitals if staff is unavailable to do so themselves. Pt continued to state that this was all a hospital joke. Pt was able to state where he was, the time, and the date. Pt unable to state how long he had been hospitalized. Staff attempted to reorient patient to the correct time and the chain of events throughout the day. Patient continually interrupted staff and stated staff were all lying. He stated that he could not believe that someone that had just had surgery would be left in their room, naked, with no blankets, and all of these things attached. Pt was continually reoriented to post procedure protocol and it was explained that he was not naked and did have covers. It was also explained that the blood pressure cuff was the only new device attached to him post cardiac cath. Pt did not want to verbalized understanding and requested to contact his son Maxwell. Staff attempted to contact Maxwell with no answer. Pt finally agreed to lay back in bed and allow staff to place gown on patient. Pt currently in bed with call light in reach. will continue to monitor.
[2019-01-21] MEDS: hydroCHLOROthiazide 25 MG TABLET PO SCH (16:19)
[2019-01-21] MEDS: FUROSEMIDE 40 MG/4 ML VIAL. IVP SCH (16:20)
--- NOTE | 2019-01-21 16:42 | PDOC2 ---
CONSULT Date of Consult Date of Consult DATE: 01/21/19 TIME: 16:38 History of Present Illness Reason for Visit: Patient is s/p right TMA. Overall is doing well. Disposition planning in place. Pain under control. Still with some neuropathic pain. Past Medical History Cardiovascular: HTN CENTRAL NERVOUS SYSTEM: CVA Endocrine: Diabetes Past Surgical History Past Surgical History: Other (right TMA) Family History Family History: Diabetes Social History ALCOHOL: none Current Medications Current Medications Current Medications Sodium Chloride (Normal Saline Flush) 3 ml PRN DAILY PRN IV AFTER MEDS AND BLOOD DRAWS; Start 01/20/19 at 21:00 Acetaminophen/ Codeine Phosphate (Tylenol #3) 1 tab PRN Q6HRS PRN PO MODERATE TO SEVERE PAIN; Start 01/20/19 at 23:15 Amlodipine Besylate (Norvasc) 5 mg DAILY PO Last administered on 01/21/19at 09: 03; Start 01/21/19 at 09:00 Aspirin (Ecotrin) 81 mg DAILYWBKFT PO Last administered on 01/21/19at 09:02; Start 01/21/19 at 08:00 Atorvastatin Calcium (Lipitor) 40 mg HS PO ; Start 01/21/19 at 21:00 Lactobacillus Rhamnosus (Culturelle) 1 cap BID PO ; Start 01/21/19 at 09:00 Metoprolol Succinate (Toprol Xl) 25 mg DAILY PO Last administered on 01/21/19at 09:02; Start 01/21/19 at 09:00 Multivitamins (Thera M Plus) 1 tab DAILY PO ; Start 01/21/19 at 09:00 Niacin (Slo-Niacin) 500 mg QEVNG PO ; Start 01/21/19 at 18:00 Piperacillin Sod/ Tazobactam Sod (Zosyn) 2.25 gm Q6HRS IV ; Start 01/21/19 at 00 :00; Status UNV Tamsulosin HCl (Flomax) 0.4 mg QHS PO ; Start 01/21/19 at 21:00 Vitamin D (Vitamin D3) 5,000 unit DAILY PO ; Start 01/21/19 at 09:00 Levothyroxine Sodium (Synthroid) 50 mcg DAILY06 PO Last administered on at 06:11; Start 01/21/19 at 06:00 Furosemide (Lasix) 40 mg DAILY IVP Last administered on 01/21/19at 16:20; Start 01/21/19 at 09:00 Glimepiride (Amaryl) 1 mg BIDWMEALS PO ; Start 01/21/19 at 08:00 Hydrochlorothiazide (Hydrodiuril) 25 mg DAILY PO Last administered on at 16:19; Start 01/21/19 at 09:00 Insulin Glargine (Lantus) 15 units QHS SQ Last administered on 01/21/19at 00:18 ; Start 01/20/19 at 23:30 Insulin Human Lispro (HumaLOG) 0-5 UNITS TIDWMEALS SQ ; Start 01/21/19 at 08:00 Dextrose (Dextrose 50%-Water Syringe) 12.5 gm PRN Q15MIN PRN IV SEE COMMENTS; Start 01/20/19 at 23:30 Piperacillin Sod/ Tazobactam Sod 2.25 gm/Sodium Chloride 50 ml @ 100 mls/hr Q6HRS IV Last administered on 01/21/19at 06:11; Start 01/21/19 at 00:00 Pharmacy Consult (C.diff Med Screen By Rx) 1 each 1X ONCE MC ; Start 01/21/19 at 09:00; Stop 01/21/19 at 09:01; Status DC Epoetin Jeremy (Procrit) 10,000 unit 1X ONCE SQ Last administered on 01/21/19at 16:21; Start 01/21/19 at 09:45; Stop 01/21/19 at 09:46; Status DC Lidocaine HCl (Lidocaine 1% 20ml Vial) 20 ml STK-MED ONCE .ROUTE ; Start at 11:27; Stop 01/21/19 at 11:28; Status DC Heparin Sodium/ Sodium Chloride 500 ml @ As Directed STK-MED ONCE .ROUTE ; Start 01/21/19 at 11:28; Stop 01/21/19 at 11:29; Status DC Fentanyl Citrate (Fentanyl 2ml Vial) 100 mcg STK-MED ONCE .ROUTE ; Start at 12:16; Stop 01/21/19 at 12:17; Status DC Midazolam HCl (Versed) 2 mg STK-MED ONCE .ROUTE ; Start 01/21/19 at 12:16; Stop 01/21/19 at 12:17; Status DC Heparin Sodium/ Sodium Chloride (HEPARIN for ARTERIAL LINE FLUSH) 1,000 unit 1X ONCE IART Last administered on 01/21/19at 12:45; Start 01/21/19 at 12:45; Stop 01/21/19 at 12:46; Status DC Midazolam HCl (Versed) 2 mg 1X ONCE IV Last administered on 01/21/19at 12:45; Start 01/21/19 at 12:45; Stop 01/21/19 at 12:46; Status DC Fentanyl Citrate (Fentanyl 2ml Vial) 100 mcg 1X ONCE IV Last administered on at 12:45; Start 01/21/19 at 12:45; Stop 01/21/19 at 12:46; Status DC Iodixanol (Visipaque 320) 100 ml 1X ONCE IART ; Start 01/21/19 at 12:45; Stop 01/21/19 at 12:46; Status Cancel Lidocaine HCl (Lidocaine 1% 20ml Vial) 20 ml 1X ONCE INJ Last administered on 01/21/19at 12:45; Start 01/21/19 at 12:45; Stop 01/21/19 at 12:46; Status DC Active Scripts Active Zyvox (Linezolid) 600 Mg/300 Ml Iv.soln 600 Mg IV BID66 14 Days Thera-M Tablet (Multivits,Ca,Minerals/Iron/Fa) 1 Each Tablet 1 Tab PO DAILY 30 Days Culturelle (Lactobacillus Rhamnosus Gg) 1 Each Cap.sprink 1 Cap PO BID 14 Days Acetaminophen-Cod #3 Tablet (Acetaminophen/Codeine Phosphate) 1 Each Tablet 1 Tab PO PRN Q6HRS PRN 14 Days Aspirin Ec (Aspirin) 81 Mg Tablet.dr 81 Mg PO DAILYWBKFT 30 Days Amlodipine Besylate 5 Mg Tablet 5 Mg PO DAILY 30 Days Clopidogrel (Clopidogrel Bisulfate) 75 Mg Tablet 75 Mg PO DAILYWBKFT 30 Days Flomax (Tamsulosin Hcl) 0.4 Mg Cap.er.24h 0.4 Mg PO QHS 30 Days Zosyn 2.25 Gram Vial (Piperacillin Sodium/Tazobactam) 2.25 Gm Vial 1 Each MC PRN DAILY PRN 14 Days Reported Ferrous Sulfate 325 Mg Tablet 1 Tab PO DAILYWBKFT Niaspan (Niacin) 500 Mg Tab.er.24h 500 Mg PO HS Metoprolol Succinate ( Xl ) (Metoprolol Succinate) 25 Mg Tab.er.24h 25 Mg PO DAILY Lipitor (Atorvastatin Calcium) 40 Mg Tablet 40 Mg PO HS Aspirin 81 Mg Tab.chew 81 Mg PO BID Synthroid (Levothyroxine Sodium) 50 Mcg Tablet 50 Mcg PO DAILYAC Vitamin D3 (Cholecalciferol (Vitamin D3)) 5,000 Unit Tablet 5,000 Unit PO DAILY Allergies Allergies: Coded Allergies: No Known Drug Allergies (Unverified , 04/10/17) Physical Exam General: Alert, Oriented X3, Cooperative HEENT: Atraumatic, PERRLA, EOMI Heart: Regular rate, Normal S1, Normal S2, No murmurs Abdomen: Normal bowel sounds, Soft, Other (Obese) Extremities: No clubbing, No cyanosis, Other (Right TMA site C/D/I) Skin: No rashes, No breakdown Neuro: Normal speech, Strength at 5/5 X4 ext, Normal tone, Cranial nerves 3-12 NL Psych/Mental Status: Mental status NL, Mood NL Vitals VITALS Vital Signs Date Time Temp Pulse Resp B/P (MAP) Pulse Ox O2 Delivery O2 Flow Rate FiO2 01/21/19 15:16 97.6 82 18 135/65 (88) 97 Room Air 97.6 01/21/19 13:07 2.0 Labs Labs Laboratory Tests Test 01/21/19 00:16 01/21/19 04:10 01/21/19 11:55 Glucose (Fingerstick) 295 mg/dL (70-99) 94 mg/dL (70-99) White Blood Count 7.5 x10^3/uL (4.0-11.0) Red Blood Count 2.52 x10^6/uL (4.30-5.70) Hemoglobin 7.5 g/dL (13.0-17.5) Hematocrit 22.3 % (39.0-53.0) Mean Corpuscular Volume 88 fL (79-100) Mean Corpuscular Hemoglobin 30 pg (25-35) Mean Corpuscular Hemoglobin Concent 34 g/dL (31-37) Red Cell Distribution Width 13.7 % (11.5-14.5) Platelet Count 138 x10^3/uL (140-400) Neutrophils (%) (Auto) 66 % (31-73) Lymphocytes (%) (Auto) 14 % (24-48) Monocytes (%) (Auto) 15 % (0-9) Eosinophils (%) (Auto) 4 % (0-3) Basophils (%) (Auto) 1 % (0-3) Neutrophils # (Auto) 4.9 x10^3uL (1.8-7.7) Lymphocytes # (Auto) 1.1 x10^3/uL (1.0-4.8) Monocytes # (Auto) 1.1 x10^3/uL (0.0-1.1) Eosinophils # (Auto) 0.3 x10^3/uL (0.0-0.7) Basophils # (Auto) 0.1 x10^3/uL (0.0-0.2) Prothrombin Time 15.3 SEC (11.7-14.0) Prothromb Time International Ratio 1.2 (0.8-1.1) Sodium Level 146 mmol/L (136-145) Potassium Level 3.9 mmol/L (3.5-5.1) Chloride Level 107 mmol/L (98-107) Carbon Dioxide Level 30 mmol/L (21-32) Anion Gap 9 (6-14) Blood Urea Nitrogen 22 mg/dL (8-26) Creatinine 2.0 mg/dL (0.7-1.3) Estimated GFR (Cockcroft-Gault) 33.0 BUN/Creatinine Ratio 11 (6-20) Glucose Level 218 mg/dL (70-99) Calcium Level 8.5 mg/dL (8.5-10.1) Total Bilirubin 0.6 mg/dL (0.2-1.0) Aspartate Amino Transf (AST/SGOT) 20 U/L (15-37) Alanine Aminotransferase (ALT/SGPT) 18 U/L (16-63) Alkaline Phosphatase 157 U/L (46-116) Total Protein 5.8 g/dL (6.4-8.2) Albumin 2.5 g/dL (3.4-5.0) Albumin/Globulin Ratio 0.8 (1.0-1.7) Laboratory Tests Test 01/21/19 00:16 01/21/19 04:10 01/21/19 11:55 Glucose (Fingerstick) 295 mg/dL (70-99) 94 mg/dL (70-99) White Blood Count 7.5 x10^3/uL (4.0-11.0) Red Blood Count 2.52 x10^6/uL (4.30-5.70) Hemoglobin 7.5 g/dL (13.0-17.5) Hematocrit 22.3 % (39.0-53.0) Mean Corpuscular Volume 88 fL (79-100) Mean Corpuscular Hemoglobin 30 pg (25-35) Mean Corpuscular Hemoglobin Concent 34 g/dL (31-37) Red Cell Distribution Width 13.7 % (11.5-14.5) Platelet Count 138 x10^3/uL (140-400) Neutrophils (%) (Auto) 66 % (31-73) Lymphocytes (%) (Auto) 14 % (24-48) Monocytes (%) (Auto) 15 % (0-9) Eosinophils (%) (Auto) 4 % (0-3) Basophils (%) (Auto) 1 % (0-3) Neutrophils # (Auto) 4.9 x10^3uL (1.8-7.7) Lymphocytes # (Auto) 1.1 x10^3/uL (1.0-4.8) Monocytes # (Auto) 1.1 x10^3/uL (0.0-1.1) Eosinophils # (Auto) 0.3 x10^3/uL (0.0-0.7) Basophils # (Auto) 0.1 x10^3/uL (0.0-0.2) Prothrombin Time 15.3 SEC (11.7-14.0) Prothromb Time International Ratio 1.2 (0.8-1.1) Sodium Level 146 mmol/L (136-145) Potassium Level 3.9 mmol/L (3.5-5.1) Chloride Level 107 mmol/L (98-107) Carbon Dioxide Level 30 mmol/L (21-32) Anion Gap 9 (6-14) Blood Urea Nitrogen 22 mg/dL (8-26) Creatinine 2.0 mg/dL (0.7-1.3) Estimated GFR (Cockcroft-Gault) 33.0 BUN/Creatinine Ratio 11 (6-20) Glucose Level 218 mg/dL (70-99) Calcium Level 8.5 mg/dL (8.5-10.1) Total Bilirubin 0.6 mg/dL (0.2-1.0) Aspartate Amino Transf (AST/SGOT) 20 U/L (15-37) Alanine Aminotransferase (ALT/SGPT) 18 U/L (16-63) Alkaline Phosphatase 157 U/L (46-116) Total Protein 5.8 g/dL (6.4-8.2) Albumin 2.5 g/dL (3.4-5.0) Albumin/Globulin Ratio 0.8 (1.0-1.7) Assessment/Plan Assessment/Plan Atherosclerosis with gangrene right- Patients TMA site is healthy and healing appropriately. Sutures not ready to be removed. Will schedule in office for suture removal in next 1-2 wks. All questions answered. Ok for heel touch weight bearing. No full weight bearing on right. All questions answered. Jimmy Carolina DO, JIMMY HILARIO DO Jan 21, 2019 16:42
[2019-01-21] MEDS ORDERED: NIACIN ER 500 MG TABLET.ER PO SCH (18:00)
--- NOTE | 2019-01-21 18:00 | NUR ---
Pt attempted to remove IJ dressing s/p cardiac cath. Pt educated on dressing purpose and need to stay in place. Pt argumentative with staff and refusing to comply. Dressing fully removed. Will continue to monitor.
--- NOTE | 2019-01-21 20:30 | CONS ---
DATE OF CONSULTATION: REQUESTING PHYSICIAN: Dr. Alcaraz. REASON FOR CONSULTATION: Renal failure. HISTORY OF PRESENT ILLNESS: This is a 73-year-old gentleman who is admitted in the setting of osteomyelitis, anemia and congestive cardiomyopathy. The patient follows with Dr. Vigil of our practice. He has history of diabetes mellitus and chronic kidney disease stage 3. Due to this and need for ongoing associated comorbidities, Nephrology evaluation requested. PAST MEDICAL HISTORY: Diabetes mellitus, hypertension, chronic kidney disease stage 3, peripheral vascular disease, chronic lower extremity edema, hypothyroidism, cellulitis and osteomyelitis, anemia, chronic kidney disease. ALLERGIES: None. MEDICATIONS: Reviewed per med list. FAMILY HISTORY: Noncontributory. SOCIAL HISTORY: The patient resides with assistance. REVIEW OF SYSTEMS: No headache, sinus problem, nasal drainage, epistaxis, change in vision or hearing. No difficulty swallowing. No fever, chills, cough, sputum production or hemoptysis. No chest pain. Does get some dyspnea on exertion. No abdominal pain. No nausea, vomiting, diarrhea. No seizure or malignancies. He has chronic lower extremity edema, wound care issues. PHYSICAL EXAMINATION: GENERAL APPEARANCE: The patient wake and conversant. HEENT: Pallor. SKIN: Pale complexion. NECK: No increased JVD. No thyromegaly, mass or adenopathy. LUNGS: Clear. CARDIAC: Without S3 or rub. ABDOMEN: Obese. Bowel sounds present, nontender. EXTREMITIES: Bilateral lower extremities edema 2+ pitting. Several wounds are noted. NEUROLOGIC: Nonfocal, nonlocalizing. PSYCHIATRIC: Fair attention to detail, appropriate affect. LABORATORY DATA: White count 7.5, hemoglobin 7.5, hematocrit 22.3. Sodium 146, potassium 3.9, chloride 107, CO2 30, BUN 22, creatinine 2, GFR is 33 mL per minute. Total protein 5 and albumin 2.5. IMPRESSION: 1. Chronic kidney disease stage 3, likely secondary to diabetic nephropathy and hypertension and nephrosclerosis. 2. Congestive cardiomyopathy with lower extremity edema. Lower extremity edema, also likely exacerbated by hypoalbuminemia and hypoproteinemia. The patient may likely be nephrotic. 3. Chronic kidney disease. RECOMMENDATIONS: 1. Ongoing wound care. 2. Diuresis. 3. We will follow with you. MARY CARMEN JAMES MD DR: IGGY/marcial JOB#: [id number] / [id number]
[2019-01-21] MEDS ORDERED: TAMSULOSIN 0.4 MG CAP.ER.24H. PO SCH (21:00)
[2019-01-21] MEDS ORDERED: ATORVASTATIN CALCIUM 40 MG TABLET. PO SCH (21:00)
[2019-01-22 02:36] VITALS: BP 145/68
[2019-01-22] MEDS: PIPERACILLIN/TAZOBACTAM 2.25 GM in IV NORMAL SALINE 50ML 50 ML IV SCH ×2 (04:43→12:44)
[2019-01-22] MEDS: LEVOTHYROXINE 50 MCG TABLET PO SCH (04:46)
[2019-01-22 05:47] LABS: CALCIUM 8.6 mg/dL (8.5-10.1); POTASSIUM 3.8 mmol/L (3.5-5.1)
[2019-01-22 07:00] VITALS: BP 126/59
[2019-01-22] MEDS: INSULIN LISPRO 300 UNITS/3 ML INSULN.PEN. SQ SCH ×2 (08:00→12:49)
[2019-01-22] MEDS: FUROSEMIDE 40 MG/4 ML VIAL. IVP SCH (09:00)
[2019-01-22] MEDS: ASPIRIN ENTERIC COATED 81 MG TABLET.DR. PO SCH (09:09)
[2019-01-22] MEDS: amLODIPine BESYLATE 5 MG TABLET PO SCH (09:09)
[2019-01-22] MEDS: hydroCHLOROthiazide 25 MG TABLET PO SCH (09:09)
[2019-01-22] MEDS: LACTOBACILLUS RHAMNOSUS GG 1 CAPSULE. PO SCH (09:09)
[2019-01-22] MEDS: MULTIVITAMIN with MINERAL TABLET. PO SCH (09:09)
[2019-01-22] MEDS: METOPROLOL SUCC 24HR ER 25 MG TAB.ER.24H. PO SCH (09:09)
[2019-01-22] MEDS: CHOLECALCIFEROL (VITAMIN D3) 5,000 UNIT CAPSULE PO SCH (09:09)
[2019-01-22] MEDS: GLIMEPIRIDE 2 MG TABLET. PO SCH (09:10)
--- NOTE | 2019-01-22 10:54 | NUR ---
SS following up with discharge planning. SS phoned and faxed clinical to [facility], ; fax [phone]. [facility] Authorization for nursing home unit received. Pt's RN notified.
[2019-01-22 11:00] VITALS: BP 107/48
--- NOTE | 2019-01-22 11:43 | SNU/HH DC ---
DISCHARGE ORDERS DISCHARGE INFORMATION: CONDITION ON DISCHARGE: Stable CODE STATUS: Code Status: Full MCFP: SNF STAY <30 DAYS: Yes POST DISCHARGE ORDERS: ACTIVITY ORDERS: Activity as tolerated, Progressive ambulation WEIGHT BEARING STATUS: Partial weight bearing DIET AFTER DISCHARGE: ADA WOUND/INCISION CARE: Keep wound elevated, Change dressing CHECKS AFTER DISCHARGE: CHECKS AFTER DISCHARGE: Check blood press - daily, Check blood sugar, ac/hs, Check your Temp as needed, Weigh Yourself Daily TREATMENT/EQUIPMENT ORDERS: ADAPTIVE EQUIPMENT NEEDED: None Physical Therapy For: Evalulation/Treatment Occupational Therapy For: Evaluation/Treatment DISCHARGE MEDICATIONS: Home Meds Active Scripts Multivits,Ca,Minerals/Iron/Fa (THERA-M TABLET) 1 Each Tablet, 1 TAB PO DAILY for SUPPLEMENT for 30 Days, #30 TAB Prov:SUSAN COSTA MD 01/11/19 Lactobacillus Rhamnosus Gg (CULTURELLE) 1 Each Cap.sprink, 1 CAP PO BID for GI SUPPLEMENT for 14 Days, #28 CAP Prov:SUSAN COSTA MD 01/11/19 Acetaminophen With Codeine (ACETAMINOPHEN-COD #3 TABLET) 1 Each Tablet, 1 TAB PO PRN Q6HRS PRN for MODERATE TO SEVERE PAIN for 14 Days, #60 TAB Prov:SUSAN COSTA MD 01/11/19 Aspirin (ASPIRIN EC) 81 Mg Tablet.dr, 81 MG PO DAILYWBKFT for BLOOD FLOW for 30 Days, #30 TAB.SR Prov:SUSAN COSTA MD 01/11/19 Amlodipine Besylate (AMLODIPINE BESYLATE) 5 Mg Tablet, 5 MG PO DAILY for BP for 30 Days, #30 TAB Prov:SUSAN COSTA MD 01/11/19 Clopidogrel Bisulfate (CLOPIDOGREL) 75 Mg Tablet, 75 MG PO DAILYWBKFT for VASCULAR DISEASE for 30 Days, #30 TAB Prov:SUSAN COSTA MD 01/11/19 Tamsulosin Hcl (FLOMAX) 0.4 Mg Cap.er.24h, 0.4 MG PO QHS for BPH for 30 Days, # 30 CAP.SR Prov:SUSAN COSTA MD 01/11/19 Piperacillin Sodium/Tazobactam (ZOSYN 2.25 GRAM VIAL) 2.25 Gm Vial, 1 EACH MC PRN DAILY PRN for SEE COMMENTS for 14 Days, #90 EACH Prov:SUSAN COSTA MD 01/11/19 Reported Medications Ferrous Sulfate (FERROUS SULFATE) 325 Mg Tablet, 1 TAB PO DAILYWBKFT for anemia , #30 TAB 3 Refills 01/20/19 Niacin (NIASPAN) 500 Mg Tab.er.24h, 500 MG PO HS, TAB.SR 04/09/17 Metoprolol Succinate (METOPROLOL SUCCINATE ( XL )) 25 Mg Tab.er.24h, 25 MG PO DAILY for FOR HYPERTENSION, #30 TAB 0 Refills 04/09/17 Atorvastatin Calcium (LIPITOR) 40 Mg Tablet, 40 MG PO HS for FOR CHOLESTEROL, # 30 TAB 0 Refills 04/09/17 Levothyroxine Sodium (SYNTHROID) 50 Mcg Tablet, 50 MCG PO DAILYAC for THYROID SUPPLEMENT, #30 TAB 0 Refills 04/09/17 Cholecalciferol (Vitamin D3) (VITAMIN D3) 5,000 Unit Tablet, 5000 UNIT PO DAILY , TAB 04/09/17 Discontinued Reported Medications Aspirin (ASPIRIN) 81 Mg Tab.chew, 81 MG PO BID, TAB.CHEW 04/09/17 Hydrochlorothiazide (HYDROCHLOROTHIAZIDE TABLET) 12.5 Mg Tablet, 25 MG PO DAILY for DIURETIC, TAB 0 Refills 04/09/17 Dulaglutide (Trulicity) 1.5 Mg/0.5 Ml Pen.injctr, 1.5 MG SQ WEEKLY, EACH 04/09/17 Insulin Glargine,Hum.rec.anlog (Toujeo Solostar) 300 Unit/1 Ml Insuln.pen, 40 UNIT SQ HS, EACH 04/09/17 Glimepiride (GLIMEPIRIDE) 4 Mg Tablet, 4 MG PO BIDAC, TAB 04/09/17 Discontinued Scripts Linezolid (ZYVOX) 600 Mg/300 Ml Iv.soln, 600 MG IV BID66 for INFECTION for 14 Days, [facility] [place] Prov:SUSAN COSTA MD 01/11/19 RUCHI SERNA MD Jan 22, 2019 11:43
--- NOTE | 2019-01-22 13:18 | DS ---
DATE OF DISCHARGE: 01/22/2019 HOSPITAL COURSE: The patient is a 73-year-old male patient who was transferred from [facility] where he was admitted with anemia and also altered mental status. He was also found to have marked bilateral lower limb edema and was treated aggressively with diuretics without much improvement, and therefore, a decision was made to transfer him to [facility] to do right side catheterization and to consult the vascular surgeon as well as the brand attendant as he has refractory anemia that probably requires Epogen. He had his right-sided catheterization, which showed that he has normal left-sided vent filling pressures and mildly elevated right-sided filling pressures. No significant pulmonary hypertension. RECOMMENDATION: The patient is euvolemic and lower extremity edema, is likely due to venous insufficiency. No further aggressive diuresis necessary. Continue wound care and lower extremity compression therapy as tolerated. For chronic venous insufficiency, he was seen in consultation by the vascular surgeon who basically recommended that his transmetatarsal amputation site is healthy and healing appropriately, sutures not ready to be removed. Suture removal will be scheduled in the next 1-2 weeks. He was seen also by the brand attendant and arrangement has been made for him to be started on Epogen as an outpatient. The patient remained stable. A decision was made to transfer him back to [facility] to continue his wound care, antibiotic in the form of Zosyn 2.25 grams IV every 6 hours and to start the process for rehabilitation. PHYSICAL EXAMINATION: GENERAL: When I saw him today, he looked well and was clearly in no apparent respiratory distress, pale, but no jaundice, cyanosis or thyromegaly. No jugular venous distension. No lower limb edema. VITAL SIGNS: His heart rate was 72, blood pressure 110/48, temperature was 98.1, respiratory rate was 18 and oxygen saturation was 91%. HEAD, EYES, EARS, NOSE AND THROAT: Normocephalic, atraumatic. NECK: Supple. HEART: Showed normal first and second heart sounds. No gallop or murmur. CHEST: Clear to auscultation. No crepitation or rhonchi. ABDOMEN: Distended, soft, nontender. No guarding or rigidity. No organomegaly. All hernial orifices intact. Bowel sounds normal. NEUROLOGIC: He is awake, alert, responding appropriately. All cranial nerves intact. He moves his extremities without difficulty, ambulates with a walker. His intake and output are incompletely recorded. LABORATORY DATA: As of yesterday, his white cell count was 7500, hemoglobin 7.5, hematocrit 22.3, MCV 88 and platelet count of 138,000. His chemistry this morning showed a serum sodium 143, potassium 3.8, chloride 106, bicarbonate 30, anion gap of 7, BUN 18, creatinine 2, estimated GFR was 53 mL per minute, his glucose 145 and calcium was 8.5. DISCHARGE MEDICATIONS: He will be discharged to [facility] to continue Tylenol No. 3 one tablet every 6 hours as needed, amlodipine 5 mg once a day, aspirin 81 mg once a day, atorvastatin 40 mg at bedtime, cholecalciferol vitamin D3 of 5000 International Unit once a day, Plavix 75 mg once a day, ferrous sulfate 325 mg daily, lactobacillus rhamnosus for Culturelle 1 twice a day, levothyroxine sodium 50 mcg p.o. daily, metoprolol succinate 25 mg daily, multivitamin with mineral 1 tablet once a day, Niaspan 500 mg at bedtime, Zosyn 2.25 grams IV every 6 hours and tamsulosin for Flomax 0.4 mg at bedtime. FINAL DISCHARGE DIAGNOSES: 1. Chronic bilateral lower extremity edema, likely due to venous insufficiency. No further aggressive diuresis was recommended by the customer advisor specialist. 2. Peripheral vascular disease, status post right transmetatarsal amputation. The wound is healing nicely. 3. Chronic kidney disease stage 3. 4. Hypertension. 5. Type 2 diabetes mellitus. 6. Anemia of chronic kidney disease. RUCHI SERNA MD DR: NICOLASA/marcial JOB#: [id number] / [id number]
--- NOTE | 2019-01-22 15:04 | NUR ---
SS following up with discharge planning. Discharge orders received for pt to return to [facility], ; fax [phone]. SS phoned and faxed discharge orders to [facility]. Pt will discharge today and return to [facility] at 1515. [facility] to provide transport. Pt, pt's RN, and pt's family notified.
--- NOTE | 2019-01-22 15:26 | NUR ---
Discharge Note: LAKESHIA DEMPSEY Discharge instructions and discharge home medications reviewed with Other facility and a copy given. All questions have been answered and understanding verbalized. Pt DC'd to [facility] with double lumen PICC. Facility called and report given.
[2019-04-13] MEDS ORDERED: POTA20TA82 PO (10:30)
[2019-04-13] MEDS ORDERED: HYDR-2145 PO (10:30)
[2019-04-13] MEDS ORDERED: FURO40TA4 PO (10:30)
[2019-04-13] MEDS ORDERED: GLIM4TAB2 PO (10:30)
[2019-04-13] MEDS ORDERED: MELA3TAB2 PO (10:30)
[2019-04-13] MEDS ORDERED: INSU100V13 SQ (10:31)
[2019-04-13] MEDS ORDERED: ACET-704 PO (18:51)
== END 2019-01-22 15:15 | disposition home or self-care (01) | DRG 286 ==
LOC: 2 NORTH 20:49
PROVIDERS: ADMIT Internal Medicine; ATTEND Internal Medicine
PROC: 4A023N6 Measurement of Cardiac Sampling and Pressure, Right Heart, Percutaneous Approach (ICD-10-PCS; principal; 2019-01-21)
PROC: B2141ZZ Fluoroscopy of Right Heart using Low Osmolar Contrast (ICD-10-PCS; 2019-01-21)
DX: E11.52 Type 2 diabetes mellitus with diabetic peripheral angiopathy with gangrene (principal); E43 Unspecified severe protein-calorie malnutrition; I42.0 Dilated cardiomyopathy; I12.9 Hypertensive chronic kidney disease with stage 1 through stage 4 chronic kidney disease, or unspecified chronic kidney disease; I25.10 Atherosclerotic heart disease of native coronary artery without angina pectoris; E03.9 Hypothyroidism, unspecified; E78.5 Hyperlipidemia, unspecified; E11.22 Type 2 diabetes mellitus with diabetic chronic kidney disease; N18.3 Chronic kidney disease, stage 3 (moderate); D63.1 Anemia in chronic kidney disease; I87.2 Venous insufficiency (chronic) (peripheral); D46.4 Refractory anemia, unspecified; Z89.431 Acquired absence of right foot; Z86.73 Personal history of transient ischemic attack (TIA), and cerebral infarction without residual deficits; Z83.3 Family history of diabetes mellitus
CPT/HCPCS: 36415; 76937; 80048; 80053; 82962; 85025; 85610; 93451; 99152; 99153; C1773; C1892; J0885; J1644; J1815; J1940; J2250; J2543; J3010; 97110; 97116; 97530; 97535

== ENCOUNTER 2020-11-17 18:29 | Inpatient (IN) | payer MEDICARE, OTHER ==
[~2020-11-17] VITALS: Ht 200.7 cm; Wt 82.4 kg
[~2020-11-17 18:29] MED LIST changes: +ACET-704 PO; +AMLO-186 PO; -AMLO5TAB10 PO; -ASPI-612 PO; +ASPI-886 PO; +FERR325T14 PO; +FURO40TA4 PO; +GABA-585 PO; -GLIM4TAB2 PO; +GLIM4TAB8 PO; +HYDR-2145 PO; +INSU100V13 SQ; -LINE600I IV; +MELA3TAB4 PO; -MULT1TAB90 PO; +MULT1TAB92 PO; +POTA20TA4 PO; +[UNRECOGNIZED DRUG - CODE] IV
--- NOTE | 2020-11-17 18:51 | PHYS DOC ---
Past Medical History Smoking Status: Former Smoker (NIKOLE BROWN APRN) General Adult HPI: HPI: Patient is a 75 year old male who presents with EMS from [place] for 1 day of generalized weakness in the legs, fever and 2 falls today after sliding out of bed. Patient states he did not hurt himself when he fell out of bed. He states he did not hit his head and there was no syncope. Patient is moving all extremities and the room. Patient denies shortness of breath, cough, headache, dizziness, abdominal pain, nausea, vomiting, diarrhea, chest pain, vision changes, numbness or tingling. Patient received his first Covid vaccine yesterday. Patient has a history of kidney disease, diabetes, amputation of right toes, cognitive communication deficit, generalized muscle weakness, unsteadiness on feet, anemia, heart failure, benign prostatic hyperplasia, insomnia, hypothyroidism, hyperlipidemia, hypertension, peripheral vascular disease, left below the knee amputation. (NIKOLE BROWN APRN) Review of Systems: Review of Systems: Constitutional: Denies fever or chills. [] Eyes: Denies change in visual acuity. [] HENT: Denies nasal congestion or sore throat. [] Respiratory: Denies cough or shortness of breath. [] Cardiovascular: Denies chest pain or edema. [] GI: Denies abdominal pain, nausea, vomiting, bloody stools or diarrhea. [] : Denies dysuria. [] Musculoskeletal: Denies back pain or joint pain. [] Integument: Denies rash. [] Neurologic: Denies headache, focal weakness or sensory changes. [] Endocrine: Denies polyuria or polydipsia. [] Lymphatic: Denies swollen glands. [] Psychiatric: Denies depression or anxiety. [] (NIKOLE BROWN APRN) Heart Score: Risk Factors: Risk Factors: DM, Current or recent (<one month) smoker, HTN, HLP, family history of CAD, obesity. Risk Scores: Score 0 - 3: 2.5% MACE over next 6 weeks - Discharge Home Score 4 - 6: 20.3% MACE over next 6 weeks - Admit for Clinical Observation Score 7 - 10: 72.7% MACE over next 6 weeks - Early Invasive Strategies (NIKOLE BROWN APRN) Allergies: Allergies: Allergies Coded Allergies Type Severity Reaction Last Updated Verified No Known Drug Allergies 02/05/19 No (NIKOLE BROWN APRN) Physical Exam: PE: Constitutional: Well developed, well nourished, no acute distress, non-toxic appearance. [] HENT: Normocephalic, atraumatic, bilateral external ears normal, oropharynx moist, no oral exudates, nose normal. [] Eyes: PERRLA, EOMI, conjunctiva normal, no discharge. [] Neck: Normal range of motion, no tenderness, supple, no stridor. [] Cardiovascular:Heart rate regular rhythm, no murmur [] Lungs & Thorax: Bilateral breath sounds clear to auscultation [] Abdomen: Bowel sounds normal, soft, no tenderness, no masses, no pulsatile masses. [] Skin: Warm, dry, no erythema, no rash. [] Back: No tenderness, no CVA tenderness. [] Extremities: No tenderness, no cyanosis, no clubbing, ROM intact, no edema. [] Neurologic: Alert and oriented X 3, normal motor function, normal sensory function, no focal deficits noted. [] Psychologic: Affect normal, judgement normal, mood normal. [] (NIKOLE BROWN APRN) EKG: EK and read by Dr. Patel as Sinus Rhythm and no STEMI[] (NIKOLE BROWN APRN) Radiology/Procedures: Radiology/Procedures: [] Impression: [facility] [address] [place] [address] IMAGING REPORT Signed PATIENT: EVE DEMPSEY [facility]: [id number] : 1945 LOCATION: ER AGE: 75 SEX: M EXAM STATUS: REG ER ORD. PHYSICIAN: NIKOLE BROWN APRN REASON: fever PROCEDURE: PORTABLE CHEST 1V EXAM: CHEST 1 VIEW History: Fever COMPARISON: 04/29/2011 TECHNIQUE: Single portable radiograph of the chest FINDINGS: Mild cardiomegaly. Mild bibasilar lung airspace opacities likely atelectasis or infiltrates. IMPRESSION: Mild bibasilar lung airspace opacities likely atelectasis or infiltrates. Electronically signed by: Fidel Oliveira MD (11/17/2020 7:03 PM) [id number] DICTATED and SIGNED BY: FIDEL OLIVEIRA MD DATE: 11/17/20 [id number] (NIKOLE BROWN APRN) Course & Med Decision Making: Course & Med Decision Making Pertinent Labs and Imaging studies reviewed. (See chart for details) See HPI. Alert and oriented x4. Patient is not currently ambulatory due to weakness in the legs. No extremity edema. No joint laxity, no joint deformity, no abrasion or lacerations. No trauma to the head. No focal bony spinal tenderness. No loss of bowel bladder. No saddle paresthesia. Lungs are clear to auscultation upper lobes and diminished in lower lobes. Skin pink warm and dry. Answers questions appropriately. Follows commands appropriately. EKG shows sinus rhythm arrival no STEMI. The nursing facility called and told us that the patient tested negative today for Covid and he also tested -1-week ago. Chest x-ray shows pneumonia. Patient is started on azithromycin and Rocephin. Patient is admitted for pneumonia and inability to ambulate considering the weakness and falls. I have spoken to Dr. Lees for admission. [] (NIKOLE BROWN APRN) Course & Med Decision Making I oversaw on the above date of service of this patient and discussed the care with the [facility] [employer]. I agree with the findings, plan of care, and disposition as documented. (JOURDAN PATEL DO) Heather Disclaimer: Heather Disclaimer: This electronic medical record was generated, in whole or in part, using a voice recognition dictation system. (NIKOLE BROWN APRN) COVID-19 Patient Risks: Age 65 or older: Yes Sign of co-morbidity: Yes Exp to person + for COVID: No Exp to PUI: No Travel from affected area: No Lower respiratory symptoms: No Fever: Yes Other: Yes (WEAKNESS) (NIKOLE BROWN APRN) PPE Use: Full PPE with N95 mask or PAPR: Yes (NIKOLE BROWN APRN) Departure Departure Impression: Primary Impression: Pneumonia Qualified Codes: J18.9 - Pneumonia, unspecified organism Disposition: ADMITTED INPT THIS HOSP Admitting Physician: SAIDA (NIKOLE BROWN APRN) Condition: STABLE Referrals: ROBERT ELLER MD (PCP) NIKOLE BROWN APRN Nov 17, 2020 18:51 JOURDAN PATEL DO Nov 18, 2020 00:34
--- NOTE | 2020-11-17 19:05 | RAD ---
EXAM: CHEST 1 VIEW History: Fever COMPARISON: 04/29/2011 TECHNIQUE: Single portable radiograph of the chest FINDINGS: Mild cardiomegaly. Mild bibasilar lung airspace opacities likely atelectasis or infiltrates . IMPRESSION: Mild bibasilar lung airspace opacities likely atelectasis or infiltrates. Electronically signed by: Fidel Oliveira MD (11/17/2020 7:03 PM) [id number]
[2020-11-17] MEDS ORDERED: cefTRIAXone IV Push 1 GM VIAL. IVP ONE (19:15)
[2020-11-17] MEDS ORDERED: AZITHRMYCN 500MG IVPB FOR OMNI 250 ML IV ONE (19:15)
[2020-11-17 19:31] LABS: BASO % 1 % (0-3); EOS % 0 % (0-3); HEMATOCRIT 38.9 % (39.0-53.0); HEMOGLOBIN 12.8 g/dL (13.0-17.5); LYMPH # 0.3 x10^3/uL (1.0-4.8); LYMPH % 4 % (24-48); MEAN CORPUSCULAR HEMOGLOBIN 32 pg (25-35); MEAN CORPUSCULAR HGB CONC 33 g/dL (31-37); MEAN CORPUSCULAR VOLUME 97 fL (79-100); MONO # 0.8 x10^3/uL (0.0-1.1); MONO % 10 % (0-9); NEUT # 7.2 x10^3/uL (1.8-7.7); NEUT % 86 % (31-73); PLATELET COUNT 198 x10^3/uL (140-400); RED BLOOD COUNT 4.01 x10^6/uL (4.30-5.70); RED CELL DISTRIBUTION WIDTH 15.8 % (11.5-14.5); WHITE BLOOD COUNT 8.3 x10^3/uL (4.0-11.0)
[2020-11-17 19:43] LABS: CALCIUM 8.6 mg/dL (8.5-10.1); CREATININE 1.9 mg/dL (0.7-1.3); GFR 34.8; POTASSIUM 4.8 mmol/L (3.5-5.1)
[2020-11-17 19:56] LABS: ALBUMIN 3.2 g/dL (3.4-5.0); TOTAL BILIRUBIN 0.7 mg/dL (0.2-1.0); TOTAL PROTEIN 6.3 g/dL (6.4-8.2)
[2020-11-17 20:04] LABS: % BANDS 1 % (0-9); % BASOS 1 % (0-3); % LYMPHS 5 % (24-48); % MONOS 8 % (0-10); % SEGS 85 % (35-66); PLT ESTIMATE ADEQUATE (ADEQUATE)
[2020-11-17 20:05] LABS: BILIRUBIN,URINE NEGATIVE (NEG); CLARITY,URINE CLEAR; COLOR,URINE YELLOW; NITRITE,URINE NEGATIVE (NEG); PROTEIN,URINE 30 mg/dL (NEG-TRACE); UROBILINOGEN,URINE 0.2 mg/dL (0.2 mg/dL)
[2020-11-17 20:21] LABS: BACTERIA,URINE FEW /HPF (0-FEW)
[2020-11-17 20:22] LABS: AMORPHOUS SEDIMENT,UR PRESENT /HPF
[2020-11-17] MEDS ORDERED: ONDANSETRON PF 4 MG/2 ML VIAL. IV PRN (20:45)
[2020-11-17] MEDS ORDERED: ACETAMINOPHEN 325 MG TABLET. PO PRN (20:45)
[2020-11-17 21:28] LABS: BASE EXCESS COOX -4 mmol/L (-3-3); CORRECTED PCO2 COOX 38 mmHg; CORRECTED PH COOX 7.36; CORRECTED PO2 COOX 90 mmHg; HCO3 COOX 21 mmol/L (21-28); METHEMOGLOBIN 0.4 % (0.0-1.9); OXYHEMOGLOBIN 95.5 %; PCO2 COOX 37 mmHg (35-46); PO2 COOX 85 mmHg (65-108); SAT O2 COOX 96 % (92-99)
--- NOTE | 2020-11-17 22:50 | NUR ---
Patient, Mr Tyler Watson, admitted to room 512, alert, personal belongings are documented: shirt, shorts, watch, plan of care is discussed, he is confused and forgetful, an attempt to instruct on use of the call light, needs reinstructed, is asked whether he has allergies to any medications, he replies, "I take that big, blue pill for my eyes...I don't know what its called," then denies allergies.. bed alarm engaged, monitoring...
[2020-11-17 23:00] VITALS: BP 128/60
[2020-11-18] MEDS ORDERED: ATRO2DRO3 OD (00:16)
[2020-11-18] MEDS ORDERED: ACYC-12 PO (00:16)
[2020-11-18] MEDS ORDERED: POLY10DR LEFTEYE (00:17)
[2020-11-18] MEDS ORDERED: SENN8.8S13 PO (00:17)
[2020-11-18] MEDS ORDERED: CARB15DR3 LEFTEYE (00:17)
[2020-11-18] MEDS ORDERED: INSU100C4 SQ ×2 (00:17)
[2020-11-18] MEDS ORDERED: LACT20SO PO (00:17)
[2020-11-18] MEDS ORDERED: INSU100V13 SQ (00:17)
[2020-11-18] MEDS ORDERED: erythromycin oint OS (00:17)
[2020-11-18] MEDS ORDERED: MELA3TAB4 PO (00:17)
[2020-11-18] MEDS ORDERED: SERT50TA PO (00:17)
[2020-11-18 03:00] VITALS: BP 117/51
--- NOTE | 2020-11-18 04:04 | NUR ---
Patient has been agitated that staff unable to know what he is in need of: he wants head up, not enough, wants at side of bed, but cannot hold his back up, wants to urinate, unable to use urinal, frequently trying to reposition hips, but unable, and not letting staff assist. since he wants his head up...monitoi
[2020-11-18 07:00] VITALS: BP 127/52
[2020-11-18] MEDS: IPRATRPIUM/ALBUTEROL 0.5/2.5MG 3 ML NEBU. NEB SCH ×4 (07:50→19:44)
--- NOTE | 2020-11-18 08:03 | CONS ---
DATE OF CONSULTATION: 11/18/2020 I was asked to see this 75-year-old gentleman for pneumonia. HISTORY OF PRESENT ILLNESS: He is a poor historian. He is a [facility] resident, was brought to the Emergency Room for generalized weakness in his legs, fever and 2 falls. He states that he never smoked. He denies shortness of breath and cough. He has pain in his buttocks area. He is weak. PAST MEDICAL HISTORY: Diabetes mellitus, hypertension, status post left below-knee amputation, chronic kidney disease. ALLERGIES: No known drug allergies. MEDICATIONS: Currently, he is on Rocephin and azithromycin. SOCIAL HISTORY: Nonsmoker, [facility] resident. FAMILY HISTORY: Hypertension. REVIEW OF SYSTEMS: As mentioned as above, other systems are otherwise negative. PHYSICAL EXAMINATION: GENERAL: He is a chronically ill-appearing gentleman. VITAL SIGNS: His O2 saturation on room air is 97%, respiratory rate 18, heart rate 69, blood pressure 117/51, temperature 99.1. HEENT: Normocephalic, atraumatic. Pupils equal, round, reactive to light. Nose is clear. NECK: Short and thick. CARDIOVASCULAR: Regular rate and rhythm. Distant heart sounds. PMI is not displaced. CHEST: Inspection is normal. LUNGS: There are left basilar crackles, dullness at the left base. Right lung is clear. ABDOMEN: Soft and obese. Bowel sounds are good. EXTREMITIES: There is no edema, status post left below-knee amputation. NEUROLOGIC: Alert. SKIN: Chronic changes. LABORATORY DATA: I reviewed the following lab data: Chest x-ray shows cardiomegaly, left infiltrate/atelectasis. Sodium 139, potassium 4.8, chloride 103, CO2 of 25, BUN 35, creatinine 1.9, lactic acid 1.5. Troponin 0.025. BNP 2489. Per ER note, his COVID-19 testing was negative yesterday and a week before that. He did receive his first dose of COVID-19 vaccine. ABG: pH 7.37, pCO2 of 38, pO2 of 90 on room air. IMPRESSION: 1. Abnormal chest x-ray infiltrate/atelectasis, rule out pneumonia. 2. Acute kidney injury. 3. Chronic kidney disease. 4. His BNP is elevated. I do recommend echocardiogram. 5. Continue antibiotic. 6. Start bronchodilator. 7. Lovenox for deep venous thrombosis prophylaxis. 8. The findings and recommendations were discussed with RN. 9. Follow up cultures. Thank you very much for allowing me to participate in care of this very nice gentleman. JO-ANN VAZQUEZ M.D. DR: Ori JOB#: [id number] / [id number]
[2020-11-18] MEDS: ASCORBIC ACID 500 MG TABLET PO SCH ×2 (09:46→14:53)
--- NOTE | 2020-11-18 10:13 | PDOC1 ---
History and Physical Date of Service: DOS: DATE: 11/18/20 TIME: 10:04 Chief Complaint: Chief Complain: generalized weakness History of Present Illness: HPI: Patient is a 75-year-old male who is a resident at [facility] with past medical history of diabetes, chronic kidney disease, cognitive decline, CHF, BPH, hypothyroidism, dyslipidemia, peripheral vascular disease status post left BKA who presents with generalized weakness for 1 day and fever and falls sliding out of the bed. Apparently patient did not have any injuries or syncope or LOS. Upon my examination patient is moving all his extremities and appears to be lethargic but answers my questions subappropriately. Appears to be weak. Past Medical/Surgical History: PMH/PSH: As mentioned above Allergies: Allergies: Coded Allergies: No Known Drug Allergies (Unverified , 02/05/19) Family History: Family History: Reviewed with no relevant findings Social History: Social History: Unable to obtain due to lethargy Current Medications: Current Medications Current Medications Azithromycin 250 ml @ 250 mls/hr 1X ONCE IV Last administered on 11/17/20at 19:42; Start 11/17/20 at 19:15; Stop 11/17/20 at 20:14; Status DC Ceftriaxone Sodium (Rocephin) 1 gm 1X ONCE IVP Last administered on 11/17/20at 19:39; Start 11/17/20 at 19:15; Stop 11/17/20 at 19:16; Status DC Ondansetron HCl (Zofran) 4 mg PRN Q8HRS PRN IV NAUSEA/VOMITING; Start 11/17/20 at 20:45; Stop 11/18/20 at 20:44 Acetaminophen (Tylenol) 650 mg PRN Q4HRS PRN PO FEVER > 100.3'F; Start 11/17/20 at 20:45; Stop 11/18/20 at 20:44 Albuterol/ Ipratropium (Duoneb) 3 ml RTQID NEB ; Start 11/18/20 at 08:00 Ceftriaxone Sodium (Rocephin) 1 gm Q24H IVP ; Start 11/18/20 at 19:00 Azithromycin 500 mg/Sodium Chloride 250 ml @ 250 mls/hr Q24H IV ; Start 11/18/20 at 19:00 Ascorbic Acid (Vitamin C) 3,000 mg TID PO Last administered on 11/18/20at 09:46; Start 11/18/20 at 09:00 Thiamine HCl 100 mg/Dextrose 51 ml @ 102 mls/hr Q8HRS IV ; Start 11/18/20 at 14:00 Active Scripts Active Clopidogrel (Clopidogrel Bisulfate) 75 Mg Tablet 75 Mg PO DAILYWBKFT 30 Days Aspirin Ec (Aspirin) 81 Mg Tablet.dr 81 Mg PO DAILYWBKFT 30 Days Reported Polytrim Eye Drops (Polymyxin B Sulf/Trimethoprim) 10 Ml Drops 1 Drop LEFTEYE BID Novolog (Insulin Aspart) 100 Unit/1 Ml Cartridge 5 Unit SQ DAILYWLUN Novolog (Insulin Aspart) 100 Unit/1 Ml Cartridge 5 Unit SQ DAILYBFRSUP Refresh Optive Eye Drops (Carboxymethylcellulos/Glycerin) 15 Ml Drops 1 Drop LEF TEYE QID Senna (Sennosides) 8.8 Mg/5 Ml Syrup 8.8 Mg PO PRN Q12HR PRN Zoloft (Sertraline Hcl) 50 Mg Tablet 1 Tab PO DAILY Melatonin 3 Mg Tablet 2 Tab PO QHS Levemir (Insulin Detemir) 100 Unit/1 Ml Vial 15 Unit SQ BID [erythromycin oint] OS BID Lactulose 20 Gm/30 Ml Solution 20 Gm PO DAILY PRN Acyclovir 400 Mg Tablet 1 Tab PO TID Atropine Sulfate 2 Ml Drops 1 Drop OD BID Furosemide 40 Mg Tablet 1 Tab PO DAILY Potassium Chloride (Potassium Chloride) 20 Meq Tablet.er 20 Meq PO DAILY Metoprolol Succinate ( Xl ) (Metoprolol Succinate) 25 Mg Tab.er.24h 25 Mg PO DAILY Lipitor (Atorvastatin Calcium) 40 Mg Tablet 40 Mg PO HS Synthroid (Levothyroxine Sodium) 50 Mcg Tablet 50 Mcg PO DAILYAC ROS: Review of Systems Review of System Difficult to obtain due to lethargy Physical Exam: Vital Signs: Vital Signs Date Time Temp Pulse Resp B/P (MAP) Pulse Ox O2 Delivery O2 Flow Rate FiO2 11/18/20 07:00 99.0 68 18 127/52 (77) 94 Room Air 99.0 Physcial Exam: GEN: No apparent distress. Alert and oriented HEENT: Normal cephalic, atraumatic, external auditory canals are patent EYES: Extraocular muscles are intact, pupil are equally round and reactive to light and accommodation MUSCULOSKELETAL: Well developed , well nourished, good range of motion ENDOCRINE: No thyromegaly was palpated LYMPHATICS: No cervical chain or axillary nodes were noted HEMATOPOIETIC: No bruising NECK: Supple, no JVD, no thyromegaly was noted LUNGS: Clear to auscultation in all lung head without rhonchi or wheezing HEART: RRR, S!, S2 present. Peripheral pulses intact, no obvious murmurs noted ABDOMEN: Soft, nontender. Positive bowel sounds, no organomegaly, normal bowel sounds EXTREMITIES: Without clubbing, cyanosis, or edema. Pedal pulses intact. Negative Homans sign NEUROLOGIC: Normal speech and tone. A&O x 3, moves all extremities, no obvious focal deficits PSYCHIATRIC: Normal affect, normal mood. Stable SKIN: No ulcerations or rashes, good skin turgor, no jaundice VASCULAR: Good capillary refill, neurovascular bundle appears to be intact Labs: Labs: Laboratory Tests Test 11/17/20 19:25 11/17/20 19:51 11/17/20 21:27 11/18/20 07:45 White Blood Count 8.3 x10^3/uL (4.0-11.0) Red Blood Count 4.01 x10^6/uL (4.30-5.70) Hemoglobin 12.8 g/dL (13.0-17.5) Hematocrit 38.9 % (39.0-53.0) Mean Corpuscular Volume 97 fL (79-100) Mean Corpuscular Hemoglobin 32 pg (25-35) Mean Corpuscular Hemoglobin Concent 33 g/dL (31-37) Red Cell Distribution Width 15.8 % (11.5-14.5) Platelet Count 198 x10^3/uL (140-400) Neutrophils (%) (Auto) 86 % (31-73) Lymphocytes (%) (Auto) 4 % (24-48) Monocytes (%) (Auto) 10 % (0-9) Eosinophils (%) (Auto) 0 % (0-3) Basophils (%) (Auto) 1 % (0-3) Neutrophils # (Auto) 7.2 x10^3/uL (1.8-7.7) Lymphocytes # (Auto) 0.3 x10^3/uL (1.0-4.8) Monocytes # (Auto) 0.8 x10^3/uL (0.0-1.1) Eosinophils # (Auto) 0.0 x10^3/uL (0.0-0.7) Basophils # (Auto) 0.0 x10^3/uL (0.0-0.2) Segmented Neutrophils % 85 % (35-66) Band Neutrophils % 1 % (0-9) Lymphocytes % 5 % (24-48) Monocytes % 8 % (0-10) Basophils % 1 % (0-3) Platelet Estimate Adequate (ADEQUATE) Sodium Level 139 mmol/L (136-145) Potassium Level 4.8 mmol/L (3.5-5.1) Chloride Level 103 mmol/L (98-107) Carbon Dioxide Level 25 mmol/L (21-32) Anion Gap 11 (6-14) Blood Urea Nitrogen 35 mg/dL (8-26) Creatinine 1.9 mg/dL (0.7-1.3) Estimated GFR (Cockcroft-Gault) 34.8 BUN/Creatinine Ratio 18 (6-20) Glucose Level 209 mg/dL (70-99) Lactic Acid Level 1.5 mmol/L (0.4-2.0) Calcium Level 8.6 mg/dL (8.5-10.1) Total Bilirubin 0.7 mg/dL (0.2-1.0) Aspartate Amino Transf (AST/SGOT) 30 U/L (15-37) Alanine Aminotransferase (ALT/SGPT) 30 U/L (16-63) Alkaline Phosphatase 118 U/L (46-116) Troponin I Quantitative 0.025 ng/mL (0.000-0.055) CO-Fei-N-Type Natriuretic Peptide 2489 pg/mL (0-124) Total Protein 6.3 g/dL (6.4-8.2) Albumin 3.2 g/dL (3.4-5.0) Albumin/Globulin Ratio 1.0 (1.0-1.7) Urine Collection Type U cath Urine Color Yellow Urine Clarity Clear Urine pH 5.0 (<5.0-8.0) Urine Specific Romulus 1.015 (1.000-1.030) Urine Protein 30 mg/dL (NEG-TRACE) Urine Glucose (UA) Negative mg/dL (NEG) Urine Ketones (Stick) Negative mg/dL (NEG) Urine Blood Small (NEG) Urine Nitrite Negative (NEG) Urine Bilirubin Negative (NEG) Urine Urobilinogen Dipstick 0.2 mg/dL (0.2 mg/dL) Urine Leukocyte Esterase Negative (NEG) Urine RBC 3-5 /HPF (0-2) Urine WBC 1-4 /HPF (0-4) Urine Squamous Epithelial Cells Few /LPF Urine Amorphous Sediment Present /HPF Urine Bacteria Few /HPF (0-FEW) Urine Mucus Slight /LPF O2 Saturation 96 % (92-99) Arterial Blood pH 7.37 (7.35-7.45) Arterial Blood pH (Temp corrected) 7.36 Arterial Blood pCO2 at Patient Temp 37 mmHg (35-46) Arterial Blood pCO2 (Temp correct) 38 mmHg Arterial Blood pO2 at Patient Temp 85 mmHg (65-108) Arterial Blood pO2 (Temp corrected) 90 mmHg Arterial Blood HCO3 21 mmol/L (21-28) Arterial Blood Base Excess -4 mmol/L (-3-3) Oxyhemoglobin 95.5 % Methemoglobin 0.4 % (0.0-1.9) Carbon Monoxide, Quantitative 0.3 % (0.0-1.9) FiO2 21 Glucose (Fingerstick) 165 mg/dL (70-99) Laboratory Tests Test 11/17/20 19:25 11/17/20 19:51 11/17/20 21:27 11/18/20 07:45 White Blood Count 8.3 x10^3/uL (4.0-11.0) Red Blood Count 4.01 x10^6/uL (4.30-5.70) Hemoglobin 12.8 g/dL (13.0-17.5) Hematocrit 38.9 % (39.0-53.0) Mean Corpuscular Volume 97 fL (79-100) Mean Corpuscular Hemoglobin 32 pg (25-35) Mean Corpuscular Hemoglobin Concent 33 g/dL (31-37) Red Cell Distribution Width 15.8 % (11.5-14.5) Platelet Count 198 x10^3/uL (140-400) Neutrophils (%) (Auto) 86 % (31-73) Lymphocytes (%) (Auto) 4 % (24-48) Monocytes (%) (Auto) 10 % (0-9) Eosinophils (%) (Auto) 0 % (0-3) Basophils (%) (Auto) 1 % (0-3) Neutrophils # (Auto) 7.2 x10^3/uL (1.8-7.7) Lymphocytes # (Auto) 0.3 x10^3/uL (1.0-4.8) Monocytes # (Auto) 0.8 x10^3/uL (0.0-1.1) Eosinophils # (Auto) 0.0 x10^3/uL (0.0-0.7) Basophils # (Auto) 0.0 x10^3/uL (0.0-0.2) Segmented Neutrophils % 85 % (35-66) Band Neutrophils % 1 % (0-9) Lymphocytes % 5 % (24-48) Monocytes % 8 % (0-10) Basophils % 1 % (0-3) Platelet Estimate Adequate (ADEQUATE) Sodium Level 139 mmol/L (136-145) Potassium Level 4.8 mmol/L (3.5-5.1) Chloride Level 103 mmol/L (98-107) Carbon Dioxide Level 25 mmol/L (21-32) Anion Gap 11 (6-14) Blood Urea Nitrogen 35 mg/dL (8-26) Creatinine 1.9 mg/dL (0.7-1.3) Estimated GFR (Cockcroft-Gault) 34.8 BUN/Creatinine Ratio 18 (6-20) Glucose Level 209 mg/dL (70-99) Lactic Acid Level 1.5 mmol/L (0.4-2.0) Calcium Level 8.6 mg/dL (8.5-10.1) Total Bilirubin 0.7 mg/dL (0.2-1.0) Aspartate Amino Transf (AST/SGOT) 30 U/L (15-37) Alanine Aminotransferase (ALT/SGPT) 30 U/L (16-63) Alkaline Phosphatase 118 U/L (46-116) Troponin I Quantitative 0.025 ng/mL (0.000-0.055) EP-Ezr-G-Type Natriuretic Peptide 2489 pg/mL (0-124) Total Protein 6.3 g/dL (6.4-8.2) Albumin 3.2 g/dL (3.4-5.0) Albumin/Globulin Ratio 1.0 (1.0-1.7) Urine Collection Type U cath Urine Color Yellow Urine Clarity Clear Urine pH 5.0 (<5.0-8.0) Urine Specific Romulus 1.015 (1.000-1.030) Urine Protein 30 mg/dL (NEG-TRACE) Urine Glucose (UA) Negative mg/dL (NEG) Urine Ketones (Stick) Negative mg/dL (NEG) Urine Blood Small (NEG) Urine Nitrite Negative (NEG) Urine Bilirubin Negative (NEG) Urine Urobilinogen Dipstick 0.2 mg/dL (0.2 mg/dL) Urine Leukocyte Esterase Negative (NEG) Urine RBC 3-5 /HPF (0-2) Urine WBC 1-4 /HPF (0-4) Urine Squamous Epithelial Cells Few /LPF Urine Amorphous Sediment Present /HPF Urine Bacteria Few /HPF (0-FEW) Urine Mucus Slight /LPF O2 Saturation 96 % (92-99) Arterial Blood pH 7.37 (7.35-7.45) Arterial Blood pH (Temp corrected) 7.36 Arterial Blood pCO2 at Patient Temp 37 mmHg (35-46) Arterial Blood pCO2 (Temp correct) 38 mmHg Arterial Blood pO2 at Patient Temp 85 mmHg (65-108) Arterial Blood pO2 (Temp corrected) 90 mmHg Arterial Blood HCO3 21 mmol/L (21-28) Arterial Blood Base Excess -4 mmol/L (-3-3) Oxyhemoglobin 95.5 % Methemoglobin 0.4 % (0.0-1.9) Carbon Monoxide, Quantitative 0.3 % (0.0-1.9) FiO2 21 Glucose (Fingerstick) 165 mg/dL (70-99) Images: Images CXR IMPRESSION: Mild bibasilar lung airspace opacities likely atelectasis or infiltrates. Assessment/Plan Assessment/Plan Acute generalized weakness due to possible HCAP, possible gram-negative organisms Normocytic anemia due to chronic kidney disease Acute on chronic kidney disease Elevated BNP, possible volume overload, even when BNP is adjusted for his age Admit to medicine for further management Appreciate pulmonary recommendationsrepeat echocardiogram and treat for pneumonia Continue empiric IV antibiotics Dementia prevention protocol Fall precautions Medication reconciliation Orthostatic vital signs Lovenox for DVT prophylaxis Protonix GI prophylaxis ADA diet Full code Discussed with RN and SW Disposition inpatient management as above Surrogate decision maker is Maxwell Watson Justifications for Admission Other Justification KYAW HERNANDEZ MD Nov 18, 2020 10:13
[2020-11-18] MEDS ORDERED: SENNOSIDES 8.6 MG TABLET PO PRN (10:30)
[2020-11-18] MEDS ORDERED: LACTULOSE 20 GM/30 ML SOLUTION. PO PRN (10:30)
[2020-11-18] MEDS ORDERED: DEXTROSE 50% 25 GM / 50ML DISP.SYRIN. IV PRN (10:30)
[2020-11-18 10:39] VITALS: BP 147/58
[2020-11-18] MEDS ORDERED: ENOXAPARIN 40 MG/0.4 ML SYRINGE. SQ ONE (11:00)
[2020-11-18] MEDS: SERTRALINE 50 MG TABLET. PO SCH (12:36)
[2020-11-18] MEDS: CLOPIDOGREL BISULFATE 75 MG TABLET PO SCH (12:36)
[2020-11-18] MEDS: ASPIRIN ENTERIC COATED 81 MG TABLET.DR. PO SCH (12:36)
[2020-11-18] MEDS: LEVOTHYROXINE 50 MCG TABLET PO SCH (12:36)
[2020-11-18] MEDS: METOPROLOL SUCC 24HR ER 25 MG TAB.ER.24H. PO SCH (12:36)
[2020-11-18] MEDS: POLYVINYL ALCOHOL 1.4% OPHTH SOLUTION 15ML BOTTLE. OU SCH ×3 (12:37→21:09)
[2020-11-18] MEDS: ATROPINE 1% OPHTH SOLUTION 5ML BOTTLE. OD SCH ×2 (12:37→21:09)
[2020-11-18] MEDS: INSULIN LISPRO 300 UNITS/3 ML VIAL. SQ SCH ×2 (12:51→18:06)
[2020-11-18] MEDS: INSULIN GLARGINE SYRINGE. SQ SCH ×2 (12:51→21:18)
[2020-11-18] MEDS: THIAMINE INJ 100 MG in IV DEXTROSE 5% 50 ML IV SCH ×2 (14:53→21:10)
[2020-11-18 15:00] VITALS: BP 136/54
--- NOTE | 2020-11-18 17:00 | NUR ---
refusing to leave tele monitor on. RN removed. physician aware
[2020-11-18] MEDS: cefTRIAXone IV Push 1 GM VIAL. IVP SCH (17:57)
[2020-11-18] MEDS: AZITHROMYCIN 500 MG in IV NORMAL SALINE 250ML 250 ML IV SCH (17:58)
[2020-11-18 19:00] VITALS: BP 103/61
[2020-11-18] MEDS: ATORVASTATIN CALCIUM 40 MG TABLET. PO SCH (21:08)
[2020-11-18] MEDS: ASCORBIC ACID 1,000 MG TABLET PO SCH (21:10)
[2020-11-18 23:00] VITALS: BP 120/66
[2020-11-19 03:00] VITALS: BP 117/66
[2020-11-19] MEDS: THIAMINE INJ 100 MG in IV DEXTROSE 5% 50 ML IV SCH ×3 (06:24→20:34)
[2020-11-19 07:00] VITALS: BP 137/45
--- NOTE | 2020-11-19 07:00 | PDOC ---
PULMONARY PROGRESS NOTES DATE: 11/19/20 TIME: 06:59 Subjective sob better has cough is tired Vitals Vital Signs Date Time Temp Pulse Resp B/P (MAP) Pulse Ox O2 Delivery O2 Flow Rate FiO2 11/19/20 03:00 97.8 73 20 117/66 (83) 95 Room Air 97.8 ROS: No Nausea General: Alert Lungs: Other (b diminished bs) Cardiovascular: S1, S2 Abdomen: Soft Neuro Exam: Alert Extremities: Other Skin: Warm Labs Laboratory Tests Test 11/17/20 19:25 11/17/20 19:51 11/17/20 21:27 11/18/20 07:45 White Blood Count 8.3 x10^3/uL (4.0-11.0) Red Blood Count 4.01 x10^6/uL (4.30-5.70) Hemoglobin 12.8 g/dL (13.0-17.5) Hematocrit 38.9 % (39.0-53.0) Mean Corpuscular Volume 97 fL (79-100) Mean Corpuscular Hemoglobin 32 pg (25-35) Mean Corpuscular Hemoglobin Concent 33 g/dL (31-37) Red Cell Distribution Width 15.8 % (11.5-14.5) Platelet Count 198 x10^3/uL (140-400) Neutrophils (%) (Auto) 86 % (31-73) Lymphocytes (%) (Auto) 4 % (24-48) Monocytes (%) (Auto) 10 % (0-9) Eosinophils (%) (Auto) 0 % (0-3) Basophils (%) (Auto) 1 % (0-3) Neutrophils # (Auto) 7.2 x10^3/uL (1.8-7.7) Lymphocytes # (Auto) 0.3 x10^3/uL (1.0-4.8) Monocytes # (Auto) 0.8 x10^3/uL (0.0-1.1) Eosinophils # (Auto) 0.0 x10^3/uL (0.0-0.7) Basophils # (Auto) 0.0 x10^3/uL (0.0-0.2) Segmented Neutrophils % 85 % (35-66) Band Neutrophils % 1 % (0-9) Lymphocytes % 5 % (24-48) Monocytes % 8 % (0-10) Basophils % 1 % (0-3) Platelet Estimate Adequate (ADEQUATE) Sodium Level 139 mmol/L (136-145) Potassium Level 4.8 mmol/L (3.5-5.1) Chloride Level 103 mmol/L (98-107) Carbon Dioxide Level 25 mmol/L (21-32) Anion Gap 11 (6-14) Blood Urea Nitrogen 35 mg/dL (8-26) Creatinine 1.9 mg/dL (0.7-1.3) Estimated GFR (Cockcroft-Gault) 34.8 BUN/Creatinine Ratio 18 (6-20) Glucose Level 209 mg/dL (70-99) Lactic Acid Level 1.5 mmol/L (0.4-2.0) Calcium Level 8.6 mg/dL (8.5-10.1) Total Bilirubin 0.7 mg/dL (0.2-1.0) Aspartate Amino Transf (AST/SGOT) 30 U/L (15-37) Alanine Aminotransferase (ALT/SGPT) 30 U/L (16-63) Alkaline Phosphatase 118 U/L (46-116) Troponin I Quantitative 0.025 ng/mL (0.000-0.055) YR-Jup-R-Type Natriuretic Peptide 2489 pg/mL (0-124) Total Protein 6.3 g/dL (6.4-8.2) Albumin 3.2 g/dL (3.4-5.0) Albumin/Globulin Ratio 1.0 (1.0-1.7) Thyroid Stimulating Hormone (TSH) 0.902 uIU/mL (0.358-3.74) Urine Collection Type U cath Urine Color Yellow Urine Clarity Clear Urine pH 5.0 (<5.0-8.0) Urine Specific [place] 1.015 (1.000-1.030) Urine Protein 30 mg/dL (NEG-TRACE) Urine Glucose (UA) Negative mg/dL (NEG) Urine Ketones (Stick) Negative mg/dL (NEG) Urine Blood Small (NEG) Urine Nitrite Negative (NEG) Urine Bilirubin Negative (NEG) Urine Urobilinogen Dipstick 0.2 mg/dL (0.2 mg/dL) Urine Leukocyte Esterase Negative (NEG) Urine RBC 3-5 /HPF (0-2) Urine WBC 1-4 /HPF (0-4) Urine Squamous Epithelial Cells Few /LPF Urine Amorphous Sediment Present /HPF Urine Bacteria Few /HPF (0-FEW) Urine Mucus Slight /LPF O2 Saturation 96 % (92-99) Arterial Blood pH 7.37 (7.35-7.45) Arterial Blood pH (Temp corrected) 7.36 Arterial Blood pCO2 at Patient Temp 37 mmHg (35-46) Arterial Blood pCO2 (Temp correct) 38 mmHg Arterial Blood pO2 at Patient Temp 85 mmHg (65-108) Arterial Blood pO2 (Temp corrected) 90 mmHg Arterial Blood HCO3 21 mmol/L (21-28) Arterial Blood Base Excess -4 mmol/L (-3-3) Oxyhemoglobin 95.5 % Methemoglobin 0.4 % (0.0-1.9) Carbon Monoxide, Quantitative 0.3 % (0.0-1.9) FiO2 21 Glucose (Fingerstick) 165 mg/dL (70-99) Test 11/18/20 12:01 11/18/20 17:00 11/18/20 21:14 Glucose (Fingerstick) 267 mg/dL (70-99) 206 mg/dL (70-99) 190 mg/dL (70-99) Laboratory Tests Test 11/18/20 07:45 11/18/20 12:01 11/18/20 17:00 11/18/20 21:14 Glucose (Fingerstick) 165 mg/dL (70-99) 267 mg/dL (70-99) 206 mg/dL (70-99) 190 mg/dL (70-99) Medications Active Scripts Medications Dose Route/Sig Max Daily Dose Days Date Category Polytrim Eye Drops (Polymyxin B Sulf/Trimethoprim) 10 Ml Drops 1 Drop LEFTEYE BID 11/18/20 Reported Novolog (Insulin Aspart) 100 Unit/1 Ml Cartridge 5 Unit SQ DAILYWLUN 11/18/20 Reported Novolog (Insulin Aspart) 100 Unit/1 Ml Cartridge 5 Unit SQ DAILYBFRSUP 11/18/20 Reported Refresh Optive Eye Drops (Carboxymethylcellulos/Glycerin) 15 Ml Drops 1 Drop LEFTEYE QID 11/18/20 Reported Senna (Sennosides) 8.8 Mg/5 Ml Syrup 8.8 Mg PO PRN Q12HR PRN 11/18/20 Reported Zoloft (Sertraline Hcl) 50 Mg Tablet 1 Tab PO DAILY 1/16/21 Reported Melatonin 3 Mg Tablet 2 Tab PO QHS 11/18/20 Reported Levemir (Insulin Detemir) 100 Unit/1 Ml Vial 15 Unit SQ BID 11/18/20 Reported [erythromycin oint] OS BID 11/18/20 Reported Lactulose 20 Gm/30 Ml Solution 20 Gm PO DAILY PRN 11/18/20 Reported Acyclovir 400 Mg Tablet 1 Tab PO TID 11/18/20 Reported Atropine Sulfate 2 Ml Drops 1 Drop OD BID 11/18/20 Reported Clopidogrel (Clopidogrel Bisulfate) 75 Mg Tablet 75 Mg PO DAILYWBKFT 30 04/27/19 Rx Furosemide 40 Mg Tablet 1 Tab PO DAILY 04/13/19 Reported Potassium Chloride (Potassium Chloride) 20 Meq Tablet.er 20 Meq PO DAILY 04/13/19 Reported Aspirin Ec (Aspirin) 81 Mg Tablet.dr 81 Mg PO DAILYWBKFT 30 01/11/19 Rx Metoprolol Succinate ( Xl ) (Metoprolol Succinate) 25 Mg Tab.er.24h 25 Mg PO DAILY 04/09/17 Reported Lipitor (Atorvastatin Calcium) 40 Mg Tablet 40 Mg PO HS 04/09/17 Reported Synthroid (Levothyroxine Sodium) 50 Mcg Tablet 50 Mcg PO DAILYAC 04/09/17 Reported Impression . IMPRESSION: 1. Abnormal chest x-ray infiltrate/atelectasis, rule out pneumonia. 2. Acute kidney injury. 3. Chronic kidney disease. 4. Diabetes mellitus 5. hypertension, 6. status post left 7. below-knee amputation Plan . His BNP is elevated. I do recommend echocardiogram. Continue antibiotic. bronchodilator. Lovenox for deep venous thrombosis prophylaxis. Follow up cultures. 02 titration The findings and recommendations were discussed with JO-ANN RIVAS MD Nov 19, 2020 07:00
[2020-11-19] MEDS: IPRATRPIUM/ALBUTEROL 0.5/2.5MG 3 ML NEBU. NEB SCH ×4 (07:36→21:47)
[2020-11-19] MEDS: INSULIN LISPRO 300 UNITS/3 ML VIAL. SQ SCH ×3 (08:00→17:00)
[2020-11-19 09:54] LABS: BASO % 1 % (0-3); EOS # 0.3 x10^3/uL (0.0-0.7); EOS % 6 % (0-3); HEMATOCRIT 37.8 % (39.0-53.0); HEMOGLOBIN 12.6 g/dL (13.0-17.5); LYMPH # 0.6 x10^3/uL (1.0-4.8); LYMPH % 10 % (24-48); MEAN CORPUSCULAR HEMOGLOBIN 32 pg (25-35); MEAN CORPUSCULAR HGB CONC 33 g/dL (31-37); MEAN CORPUSCULAR VOLUME 97 fL (79-100); MONO # 0.9 x10^3/uL (0.0-1.1); MONO % 15 % (0-9); NEUT % 69 % (31-73); PLATELET COUNT 151 x10^3/uL (140-400); RED CELL DISTRIBUTION WIDTH 15.5 % (11.5-14.5); WHITE BLOOD COUNT 5.9 x10^3/uL (4.0-11.0)
--- NOTE | 2020-11-19 10:00 | PDOC ---
[employer] PROGRESS NOTE Date of Service DOS: DATE: 11/19/20 TIME: 09:57 Chief Complaint Chief Complaint Assessment/Plan Acute generalized weakness due to possible HCAP, possible gram-negative organisms Normocytic anemia due to chronic kidney disease Acute on chronic kidney disease Elevated BNP, possible volume overload, even when BNP is adjusted for his age Admit to medicine for further management Appreciate pulmonary recommendationsrepeat echocardiogram and treat for pneumonia Continue empiric IV antibiotics Dementia prevention protocol Fall precautions Medication reconciliation Orthostatic vital signs Lovenox for DVT prophylaxis Protonix GI prophylaxis ADA diet Full code Discussed with RN and SW Disposition inpatient management as above Surrogate decision maker is Maxwell Watson History of Present Illness History of Present Illness 11/19/2020 No acute events overnight. Patient remains afebrile. Saturating 97% on room air. Patient is more awake and alert and able to maintain conversation with me. Patient's chart, labs, images were reviewed and discussed with RN 75-year-old male who is a resident at [facility] with past medical history of grace betes, chronic kidney disease, cognitive decline, CHF, BPH, hypothyroidism, dyslipidemia, peripheral vascular disease status post left BKA who presents with generalized weakness for 1 day and fever and falls sliding out of the bed. Apparently patient did not have any injuries or syncope or LOS. Upon my examination patient is moving all his extremities and appears to be lethargic but answers my questions subappropriately. Appears to be weak. Vitals/I&O Vitals/I&O: Vital Signs Date Time Temp Pulse Resp B/P (MAP) Pulse Ox O2 Delivery O2 Flow Rate FiO2 11/19/20 07:40 97 Room Air 11/19/20 07:00 97.5 67 18 137/45 (75) 97.5 I & O 11/18/20 11/18/20 11/19/20 15:00 23:00 07:00 Intake Total 300 ml 300 ml 300 ml Balance 300 ml 300 ml 300 ml Physical Exam Lungs: Clear Labs Labs: Laboratory Tests Test 11/18/20 12:01 11/18/20 17:00 11/18/20 21:14 11/19/20 08:14 Glucose (Fingerstick) 267 mg/dL (70-99) 206 mg/dL (70-99) 190 mg/dL (70-99) 128 mg/dL (70-99) Assessment and Plan Assessmemt and Plan Problems Medical Problems: (1) Person under investigation for COVID-19 Status: Acute (2) Pneumonia Status: Acute Comment Review of Relevant I have reviewed the following items magalie (where applicable) has been applied. Medications: Current Medications Medications (Trade) Dose Ordered Sig/Zeeshan Route PRN Reason Start Time Stop Time Status Last Admin Dose Admin Ceftriaxone Sodium (Rocephin) 1 gm Q24H IVP 11/18/20 19:00 11/18/20 17:57 Azithromycin 500 mg/Sodium Chloride 250 ml @ 250 mls/hr Q24H IV 11/18/20 19:00 11/18/20 17:58 Thiamine HCl 100 mg/Dextrose 51 ml @ 102 mls/hr Q8HRS IV 11/18/20 14:00 11/19/20 06:24 Enoxaparin Sodium (Lovenox 40mg Syringe) 40 mg 1X ONCE SQ 11/18/20 11:00 11/18/20 11:01 DC 11/18/20 12:42 Insulin Human Lispro (HumaLOG) 0-9 UNITS TIDWMEALS SQ 11/18/20 12:00 11/18/20 18:06 Aspirin (Ecotrin) 81 mg DAILYWBKFT PO 11/18/20 11:00 11/18/20 12:36 Atorvastatin Calcium (Lipitor) 40 mg HS PO 11/18/20 21:00 11/18/20 21:08 Atropine Sulfate (Isopto Atropine) 1 drop BID OD 11/18/20 11:00 11/18/20 21:09 Clopidogrel Bisulfate (Plavix) 75 mg DAILYWBKFT PO 11/18/20 11:00 11/18/20 12:36 Levothyroxine Sodium (Synthroid) 50 mcg DAILYAC PO 11/18/20 11:00 11/18/20 12:36 Metoprolol Succinate (Toprol Xl) 25 mg DAILY PO 11/18/20 11:00 11/18/20 12:36 Sertraline HCl (Zoloft) 50 mg DAILY PO 11/18/20 11:00 11/18/20 12:36 Glycerin/ Hypromellose/ Polyethylene (Artificial Tears) 1 drop QID OU 11/18/20 13:00 11/18/20 21:09 Insulin Glargine (Lantus Syringe) 15 unit BID SQ 11/18/20 11:00 11/18/20 21:18 Ascorbic Acid (Vitamin C) 3,000 mg TID PO 11/18/20 21:00 11/18/20 21:10 Justifications for Admission Other Justification KYAW HERNANDEZ MD Nov 19, 2020 10:00
[2020-11-19 10:13] LABS: CALCIUM 8.4 mg/dL (8.5-10.1); CREATININE 1.4 mg/dL (0.7-1.3); GFR 49.5; MAGNESIUM 2.2 mg/dL (1.8-2.4); POTASSIUM 3.8 mmol/L (3.5-5.1)
[2020-11-19 11:00] VITALS: BP 138/46
[2020-11-19] MEDS: CLOPIDOGREL BISULFATE 75 MG TABLET PO SCH (11:10)
[2020-11-19] MEDS: ASPIRIN ENTERIC COATED 81 MG TABLET.DR. PO SCH (11:10)
[2020-11-19] MEDS: LEVOTHYROXINE 50 MCG TABLET PO SCH (11:11)
[2020-11-19] MEDS: METOPROLOL SUCC 24HR ER 25 MG TAB.ER.24H. PO SCH (11:11)
[2020-11-19] MEDS: LACTOBACILLUS RHAMNOSUS GG 1 CAPSULE. PO SCH ×2 (11:11→20:34)
[2020-11-19] MEDS: ASCORBIC ACID 1,000 MG TABLET PO SCH ×3 (11:11→20:35)
[2020-11-19] MEDS: POLYVINYL ALCOHOL 1.4% OPHTH SOLUTION 15ML BOTTLE. OU SCH ×4 (11:11→20:34)
[2020-11-19] MEDS: SERTRALINE 50 MG TABLET. PO SCH (11:11)
[2020-11-19] MEDS: ATROPINE 1% OPHTH SOLUTION 5ML BOTTLE. OD SCH ×2 (11:12→20:34)
[2020-11-19] MEDS: INSULIN GLARGINE SYRINGE. SQ SCH ×2 (11:14→20:54)
[2020-11-19 15:00] VITALS: BP 146/65
[2020-11-19] MEDS: AZITHROMYCIN 500 MG in IV NORMAL SALINE 250ML 250 ML IV SCH (17:53)
[2020-11-19] MEDS: cefTRIAXone IV Push 1 GM VIAL. IVP SCH (17:54)
[2020-11-19 19:00] VITALS: BP 150/68
[2020-11-19] MEDS: ATORVASTATIN CALCIUM 40 MG TABLET. PO SCH (20:35)
[2020-11-19 23:03] VITALS: BP 142/61
[2020-11-20 04:12] VITALS: BP 131/75
[2020-11-20] MEDS: THIAMINE 100 MG TABLET. PO SCH ×2 (05:44→15:26)
[2020-11-20] MEDS: LEVOTHYROXINE 50 MCG TABLET PO SCH (05:44)
[2020-11-20 07:00] VITALS: BP 100/46
[2020-11-20] MEDS: IPRATRPIUM/ALBUTEROL 0.5/2.5MG 3 ML NEBU. NEB SCH ×2 (07:32→11:08)
[2020-11-20] MEDS: INSULIN LISPRO 300 UNITS/3 ML VIAL. SQ SCH ×2 (08:00→12:00)
[2020-11-20] MEDS: SERTRALINE 50 MG TABLET. PO SCH (09:14)
[2020-11-20] MEDS: CLOPIDOGREL BISULFATE 75 MG TABLET PO SCH (09:14)
[2020-11-20] MEDS: ASCORBIC ACID 1,000 MG TABLET PO SCH ×2 (09:14→15:27)
[2020-11-20] MEDS: LACTOBACILLUS RHAMNOSUS GG 1 CAPSULE. PO SCH (09:14)
[2020-11-20] MEDS: ATROPINE 1% OPHTH SOLUTION 5ML BOTTLE. OD SCH (09:15)
[2020-11-20] MEDS: POLYVINYL ALCOHOL 1.4% OPHTH SOLUTION 15ML BOTTLE. OU SCH ×2 (09:15→13:00)
[2020-11-20] MEDS: METOPROLOL SUCC 24HR ER 25 MG TAB.ER.24H. PO SCH (09:15)
[2020-11-20] MEDS: ASPIRIN ENTERIC COATED 81 MG TABLET.DR. PO SCH (09:15)
[2020-11-20] MEDS: INSULIN GLARGINE SYRINGE. SQ SCH (09:48)
[2020-11-20 11:00] VITALS: BP 146/58
--- NOTE | 2020-11-20 11:29 | NUR ---
NIK following. Discussed with RN. 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 NIK faxed clinical updates. Pt does not need a COVID test to return (Per Claudia at [facility]). RN notified. NIK will continue to follow. Addendum: 11/20/20 at 1506 by ARON ZARAGOZA Discharge orders faxed to [facility]. Awaiting stretcher transportation time. NIK will continue to follow. Addendum: 11/20/20 at 1519 by ARON ZARAGOZA Stretcher transportation arranged for 1600. RN notified. Pt returning to [facility] with SNU orders.
--- NOTE | 2020-11-20 13:39 | PDOC ---
[employer] PROGRESS NOTE Date of Service DOS: DATE: 11/20/20 TIME: 13:32 Chief Complaint Chief Complaint Assessment/Plan Acute generalized weakness due to possible HCAP, possible gram-negative organisms Normocytic anemia due to chronic kidney disease Acute on chronic kidney disease Elevated BNP, possible volume overload, even when BNP is adjusted for his age PAD, status post left BKA 5 toes amputated right leg Solitary kidney CKD CAD - 1 indwelling cardiac stent Ex-smoker Hypertension Dyslipidemia Diabetes type 2 - sliding scale Admit to medicine for further management Appreciate pulmonary recommendationsrepeat echocardiogram and treat for pneumonia Continue empiric IV antibiotics Dementia prevention protocol Fall precautions Medication reconciliation Orthostatic vital signs Lovenox for DVT prophylaxis Protonix GI prophylaxis ADA diet Full code Discussed with RN and SW Disposition inpatient management as above Surrogate decision maker is Maxwell Watson History of Present Illness History of Present Illness Mr Watson is a 75-year-old male who is a resident at [facility] with past medical history of diabetes, chronic kidney disease, cognitive decline, CHF, BPH, hypothyroidism, dyslipidemia, peripheral vascular disease status post left BKA who presents with generalized weakness for 1 day and fever and falls sliding out of the bed. Apparently patient did not have any injuries or syncope or LOS. Upon my examination patient is moving all his extremities and appears to be lethargic but answers my questions subappropriately. Appears to be weak. Had a significant cough improved after a few days of antibiotics and pulmonary consultation. Afebrile, no O2 requirements. Minimal cough today. No CP. Vitals/I&O Vitals/I&O: Vital Signs Date Time Temp Pulse Resp B/P (MAP) Pulse Ox O2 Delivery O2 Flow Rate FiO2 11/20/20 11:00 98.1 69 18 146/58 (87) 95 Room Air 98.1 I & O 11/19/20 11/19/20 11/20/20 15:00 23:00 07:00 Intake Total 200 ml 200 ml Output Total 100 ml 100 ml 100 ml Balance 100 ml 100 ml -100 ml Physical Exam Lungs: Other (b diminished bs) Labs Labs: Laboratory Tests Test 11/19/20 16:59 11/19/20 20:13 11/20/20 07:30 11/20/20 12:06 Glucose (Fingerstick) 123 mg/dL (70-99) 178 mg/dL (70-99) 81 mg/dL (70-99) 146 mg/dL (70-99) Assessment and Plan Assessmemt and Plan Problems Medical Problems: (1) Person under investigation for COVID-19 Status: Acute (2) Pneumonia Status: Acute Comment Review of Relevant I have reviewed the following items magalie (where applicable) has been applied. Medications: Current Medications Medications (Trade) Dose Ordered Sig/Zeeshan Route PRN Reason Start Time Stop Time Status Last Admin Dose Admin Thiamine Mononitrate (Vitamin B-1) 100 mg Q8HRS PO 11/20/20 06:00 11/20/20 05:44 Justifications for Admission Other Justification RASHARD PATEL MD Nov 20, 2020 13:39
[2020-11-20] MEDS ORDERED: FURO40TA4 PO (13:41)
[2020-11-20] MEDS ORDERED: DOXY100C2 PO (13:45)
--- NOTE | 2020-11-20 13:45 | SNU/HH DC ---
DISCHARGE ORDERS DISCHARGE INFORMATION: DISCHARGE DATE: Nov 20, 2020 FINAL DIAGNOSIS Problems Medical Problems: (1) Person under investigation for COVID-19 Status: Acute (2) Pneumonia Status: Acute CONDITION ON DISCHARGE: Stable CODE STATUS: Code Status: Full POST DISCHARGE ORDERS: ACTIVITY ORDERS: Activity as tolerated, Progressive ambulation WEIGHT BEARING STATUS: Partial weight bearing DIET AFTER DISCHARGE: ADA WOUND/INCISION CARE: Keep wound elevated, Change dressing CHECKS AFTER DISCHARGE: CHECKS AFTER DISCHARGE: Check blood press - daily, Check blood sugar, ac/hs, Check your Temp as needed, Weigh Yourself Daily TREATMENT/EQUIPMENT ORDERS: ADAPTIVE EQUIPMENT NEEDED: None, [facility] Physical Therapy For: Evalulation/Treatment Occupational Therapy For: Evaluation/Treatment DISCHARGE MEDICATIONS: Home Meds Active Scripts Doxycycline Hyclate (DOXYCYCLINE HYCLATE) 100 Mg Capsule, 1 CAP PO BID for Bronchitis for 2 Days, #4 CAP Prov:RASHARD PATEL MD 11/20/20 Furosemide (FUROSEMIDE) 40 Mg Tablet, 1 TAB PO PRN DAILY PRN for swelling or 3# weight gain for 30 Days, #30 TAB 5 Refills Prov:RASHARD PATEL MD 11/20/20 Clopidogrel Bisulfate (CLOPIDOGREL) 75 Mg Tablet, 75 MG PO DAILYWBKFT for pvd for 30 Days, #30 TAB Prov:RITCHIE CARLOS MD 04/27/19 Aspirin (ASPIRIN EC) 81 Mg Tablet.dr, 81 MG PO DAILYWBKFT for BLOOD FLOW for 30 Days, #30 TAB.SR Prov:SUSAN COSTA MD 01/11/19 Reported Medications Polymyxin B Sulf/Trimethoprim (POLYTRIM EYE DROPS) 10 Ml Drops, 1 DROP LEFTEYE BID for marginal corneal ulcer, #10 ML 11/18/20 Insulin Aspart (NOVOLOG) 100 Unit/1 Ml Cartridge, 5 UNIT SQ DAILYWLUN for dm, EACH 11/18/20 Insulin Aspart (NOVOLOG) 100 Unit/1 Ml Cartridge, 5 UNIT SQ DAILYBFRSUP for dm, EACH 11/18/20 Carboxymethylcellulos/Glycerin (REFRESH OPTIVE EYE DROPS) 15 Ml Drops, 1 DROP LEFTEYE QID for keratoconjunctivitis, #30 ML 6 Refills 11/18/20 Sennosides (SENNA) 8.8 Mg/5 Ml Syrup, 8.8 MG PO PRN Q12HR PRN for CONSTIPATION, MISC 11/18/20 Sertraline Hcl (ZOLOFT) 50 Mg Tablet, 1 TAB PO DAILY for ocd, #30 TAB 2 Refills 11/18/20 Melatonin (MELATONIN) 3 Mg Tablet, 2 TAB PO QHS for insomnia, #30 TAB 2 Refills 11/18/20 Insulin Detemir (LEVEMIR) 100 Unit/1 Ml Vial, 15 UNIT SQ BID for dm, VIAL 11/18/20 [erythromycin oint] No Conflict Check, OS BID 11/18/20 Lactulose (LACTULOSE) 20 Gm/30 Ml Solution, 20 GM PO DAILY PRN for CONSTIPATION, MISC 11/18/20 Atropine Sulfate (Atropine Sulfate) 2 Ml Drops, 1 DROP OD BID for inflammation, #5 ML 0 Refills 11/18/20 Potassium Chloride (POTASSIUM CHLORIDE ) 20 Meq Tablet.er, 20 MEQ PO DAILY for supplement, TAB.SR 04/13/19 Metoprolol Succinate (METOPROLOL SUCCINATE ( XL )) 25 Mg Tab.er.24h, 25 MG PO DAILY for FOR HYPERTENSION, #30 TAB 0 Refills 04/09/17 Atorvastatin Calcium (LIPITOR) 40 Mg Tablet, 40 MG PO HS for FOR CHOLESTEROL, #30 TAB 0 Refills 04/09/17 Levothyroxine Sodium (SYNTHROID) 50 Mcg Tablet, 50 MCG PO DAILYAC for THYROID SUPPLEMENT, #30 TAB 0 Refills 04/09/17 Discontinued Reported Medications Acyclovir (ACYCLOVIR) 400 Mg Tablet, 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
--- NOTE | 2020-11-20 13:49 | PDOC3 ---
Discharge Summary Visit Information Date of Admission: Nov 14, 2020 Date of Discharge: Nov 20, 2020 Admitting Diagnosis: HCAP Final Diagnosis Problems Medical Problems: (1) Person under investigation for COVID-19 Status: Acute (2) Pneumonia Status: Acute Brief Hospital Course Allergies Allergies Coded Allergies Type Severity Reaction Last Updated Verified No Known Drug Allergies 02/05/19 No Vital Signs Vital Signs Date Time Temp Pulse Resp B/P (MAP) Pulse Ox O2 Delivery O2 Flow Rate FiO2 11/20/20 11:00 98.1 69 18 146/58 (87) 95 Room Air 98.1 Lab Results Laboratory Tests Test 11/18/20 17:00 11/18/20 21:14 11/19/20 08:14 11/19/20 09:15 Glucose (Fingerstick) 206 mg/dL (70-99) 190 mg/dL (70-99) 128 mg/dL (70-99) White Blood Count 5.9 x10^3/uL (4.0-11.0) Red Blood Count 3.90 x10^6/uL (4.30-5.70) Hemoglobin 12.6 g/dL (13.0-17.5) Hematocrit 37.8 % (39.0-53.0) Mean Corpuscular Volume 97 fL (79-100) Mean Corpuscular Hemoglobin 32 pg (25-35) Mean Corpuscular Hemoglobin Concent 33 g/dL (31-37) Red Cell Distribution Width 15.5 % (11.5-14.5) Platelet Count 151 x10^3/uL (140-400) Neutrophils (%) (Auto) 69 % (31-73) Lymphocytes (%) (Auto) 10 % (24-48) Monocytes (%) (Auto) 15 % (0-9) Eosinophils (%) (Auto) 6 % (0-3) Basophils (%) (Auto) 1 % (0-3) Neutrophils # (Auto) 4.0 x10^3/uL (1.8-7.7) Lymphocytes # (Auto) 0.6 x10^3/uL (1.0-4.8) Monocytes # (Auto) 0.9 x10^3/uL (0.0-1.1) Eosinophils # (Auto) 0.3 x10^3/uL (0.0-0.7) Basophils # (Auto) 0.0 x10^3/uL (0.0-0.2) Sodium Level 141 mmol/L (136-145) Potassium Level 3.8 mmol/L (3.5-5.1) Chloride Level 106 mmol/L (98-107) Carbon Dioxide Level 27 mmol/L (21-32) Anion Gap 8 (6-14) Blood Urea Nitrogen 32 mg/dL (8-26) Creatinine 1.4 mg/dL (0.7-1.3) Estimated GFR (Cockcroft-Gault) 49.5 Glucose Level 131 mg/dL (70-99) Calcium Level 8.4 mg/dL (8.5-10.1) Magnesium Level 2.2 mg/dL (1.8-2.4) Test 11/19/20 11:52 11/19/20 16:59 11/19/20 20:13 11/20/20 07:30 Glucose (Fingerstick) 203 mg/dL (70-99) 123 mg/dL (70-99) 178 mg/dL (70-99) 81 mg/dL (70-99) Test 11/20/20 12:06 Glucose (Fingerstick) 146 mg/dL (70-99) Laboratory Tests Test 11/19/20 16:59 11/19/20 20:13 11/20/20 07:30 11/20/20 12:06 Glucose (Fingerstick) 123 mg/dL (70-99) 178 mg/dL (70-99) 81 mg/dL (70-99) 146 mg/dL (70-99) Brief Hospital Course Mr Watson is a 75-year-old male who is a resident at [facility] with past medical history of diabetes, chronic kidney disease, cognitive decline, CHF, BPH, hypothyroidism, dyslipidemia, peripheral vascular disease status post left BKA who presents with generalized weakness for 1 day and fever and falls sliding out of the bed. Apparently patient did not have any injuries or syncope or LOS. Upon my examination patient is moving all his extremities and appears to be lethargic but answers my questions subappropriately. Appears to be weak. Had a significant cough improved after a few days of antibiotics and pulmonary consultation. Afebrile, no O2 requirements. Minimal cough today. No CP. Improved on antibiotics and nebulizers. Some concern for CHF given his PAD and DM2, and CAD history. Echocardiogram was performed prior to discharge. He did not require IV diuretics. Problem list: Acute generalized weakness due to possible HCAP, possible gram-negative organisms Normocytic anemia due to chronic kidney disease Acute on chronic kidney disease Elevated BNP, possible volume overload, even when BNP is adjusted for his age PAD, status post left BKA 5 toes amputated right leg Solitary kidney CKD CAD - 1 indwelling cardiac stent Ex-smoker Hypertension Dyslipidemia Diabetes type 2 - sliding scale Greater than 30 minutes spent on d/c to SNF Discharge Information Condition at Discharge: Improved Follow Up: Weeks (1) Disposition/Orders: D/C to Another Facility Scheduled Aspirin (Aspirin Ec) 81 Mg Tablet.dr, 81 MG PO DAILYWBKFT for BLOOD FLOW for 30 Days, #30 Prescribed by: SUSAN COSTA MD on 01/11/19 1358 Last Action: Continued on 11/18/20 1019 by KYAW HERNANDEZ MD Atorvastatin Calcium (Lipitor) 40 Mg Tablet, 40 MG PO HS for FOR CHOLESTEROL, #30 Ref 0 (Reported) Entered as Reported by: DESTIN VILLANUEVA on 04/09/17 1636 Last Action: Continued on 11/18/20 1019 by KYAW HERNANDEZ MD Atropine Sulfate (Atropine Sulfate) 2 Ml Drops, 1 DROP OD BID for inflammation, #5 Ref 0 (Reported) Entered as Reported by: ANNE MOORE on 11/18/20 0016 Last Action: Continued on 11/18/20 101 by KYAW HERNANDEZ MD Carboxymethylcellulos/Glycerin (Refresh Optive Eye Drops) 15 Ml Drops, 1 DROP LEFTEYE QID for keratoconjunctivitis, #30 Ref 6 (Reported) Entered as Reported by: ANNE MOORE on 11/18/20 0017 Last Action: Converted on 11/18/20 101 by KYAW HERNANDEZ MD Clopidogrel Bisulfate (Clopidogrel) 75 Mg Tablet, 75 MG PO DAILYWBKFT for pvd for 30 Days, #30 Prescribed by: RITCHIE CARLOS MD on 04/27/19 1117 Last Action: Continued on 11/18/20 1019 by KYAW HERNANDEZ MD Doxycycline Hyclate (Doxycycline Hyclate) 100 Mg Capsule, 1 CAP PO BID for Bronchitis for 2 Days, #4 Prescribed by: RASHARD PATEL MD on 11/20/20 1345 Insulin Aspart (Novolog) 100 Unit/1 Ml Cartridge, 5 UNIT SQ DAILYBFRSUP for dm, (Reported) Entered as Reported by: ANNE MOORE on 11/18/2016 Last Action: Reviewed on 11/18/2017 by ANNE MOORE Insulin Aspart (Novolog) 100 Unit/1 Ml Cartridge, 5 UNIT SQ DAILYWLUN for dm, (Reported) Entered as Reported by: ANNE MOORE on 11/18/2016 Last Action: Reviewed on 11/18/2017 by ANNE MOORE Insulin Detemir (Levemir) 100 Unit/1 Ml Vial, 15 UNIT SQ BID for dm, (Reported) Entered as Reported by: ANNE MOORE on 11/18/2016 Last Action: Converted on 11/18/201018 by KYAW HERNANDEZ MD Levothyroxine Sodium (Synthroid) 50 Mcg Tablet, 50 MCG PO DAILYAC for THYROID SUPPLEMENT, #30 Ref 0 (Reported) Entered as Reported by: DESTIN VILLANUEVA on 04/09/171635 Last Action: Continued on 11/18/201018 by KYAW HERNANDEZ MD Melatonin (Melatonin) 3 Mg Tablet, 2 TAB PO QHS for insomnia, #30 Ref 2 (Reported) Entered as Reported by: ANNE MOORE on 11/18/2016 Last Action: HELD on 11/18/201018 by KYAW HERNANDEZ MD Metoprolol Succinate (Metoprolol Succinate ( Xl )) 25 Mg Tab.er.24h, 25 MG PO DAILY for FOR HYPERTENSION, #30 Ref 0 (Reported) Entered as Reported by: DESTIN VILLANUEVA on 04/09/171635 Last Action: Continued on 11/18/201018 by KYAW HERNANDEZ MD Polymyxin B Sulf/Trimethoprim (Polytrim Eye Drops) 10 Ml Drops, 1 DROP LEFTEYE BID for marginal corneal ulcer, #10 (Reported) Entered as Reported by: ANNE MOORE on 11/18/2016 Last Action: Reviewed on 11/18/2017 by ANNE MOORE Potassium Chloride (Potassium Chloride ) 20 Meq Tablet.er, 20 MEQ PO DAILY for supplement, (Reported) Entered as Reported by: MATTHEW BUTLER on 04/13/19 1030 Last Action: Reviewed on 11/18/2015 by ANNE MOORE Sertraline Hcl (Zoloft) 50 Mg Tablet, 1 TAB PO DAILY for ocd, #30 Ref 2 (Reported) Entered as Reported by: ANNE MOORE on 11/18/2016 Last Action: Continued on 11/18/201018 by KYAW HERNANDEZ MD [erythromycin oint] , OS BID, (Reported) Entered as Reported by: ANNE MOORE on 11/18/2016 Last Action: Reviewed on 11/18/2017 by ANNE MOORE Scheduled PRN Furosemide (Furosemide) 40 Mg Tablet, 1 TAB PO PRN DAILY PRN for swelling or 3# weight gain for 30 Days, #30 Ref 5 Prescribed by: RASHARD PATEL MD on 11/20/20 1341 Lactulose (Lactulose) 20 Gm/30 Ml Solution, 20 GM PO DAILY PRN for CONSTIPATION, (Reported) Entered as Reported by: ANNE MOORE on 11/18/2016 Last Action: Continued on 11/18/201018 by KYAW HERNANDEZ MD Sennosides (Senna) 8.8 Mg/5 Ml Syrup, 8.8 MG PO PRN Q12HR PRN for CONSTIPATION, (Reported) Entered as Reported by: ANNE MOORE on 11/18/2016 Last Action: Converted on 11/18/201018 by KYAW HERNANDEZ MD Discontinued Medications Acyclovir (Acyclovir) 400 Mg Tablet, 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
[2020-11-20 15:00] VITALS: BP 144/69
--- NOTE | 2020-11-20 15:02 | CARD ---
MR#: [id number] Date of Study: 11/20/2020 Ordering Physician: KYAW HERNANDEZ, Referring Physician: KYAW HERNANDEZ, Tech: Sherlyn Ni N[place] APPROVED REPORT EXAM: Two-dimensional and M-mode echocardiogram with Doppler and color Doppler. Other Information Quality : Fair INDICATION Weakness 2D DIMENSIONS RVDd3.3 (2.9-3.5cm)Left Atrium(2D)3.6 (1.6-4.0cm) IVSd1.1 (0.7-1.1cm)Aortic Root(2D)2.9 (2.0-3.7cm) LVDd4.3 (3.9-5.9cm)LVOT Diameter1.9 (1.8-2.4cm) PWd1.0 (0.7-1.1cm)LVDs2.9 (2.5-4.0cm) FS (%) 33.7 %SV52.6 ml LVEF(%)62.7 (>50%) Aortic Valve AoV Peak Lane.88.7cm/sAoV VTI17.5cm AO Peak GR.3.1mmHgLVOT VTI 13.29cm AO Mean GR.2mmHgAVA (VTI)2.20cm2 Mitral Valve MV E Hdlvuetn03.0cm/sMV DECEL [id number] MV A Mkqnlfbv484.6cm/sE/A Ratio0.7 TDI Lateral E' P. V3.86cm/sMedial E' P. V4.31cm/s E/Lateral E'19.9E/Medial E'17.9 Tricuspid Valve TR P. [id number]/sRAP [id number] TR Peak Gr.[id number] LEFT VENTRICLE The left ventricle is normal size. There is normal left ventricular wall thickness. The left ventricu lar systolic function is normal. The Ejection Fraction is 60-65%. There is normal LV segmental wall m otion. Transmitral Doppler flow pattern is Grade I-abnormal relaxation pattern. RIGHT VENTRICLE The right ventricle is normal size. The right ventricular systolic function is normal. ATRIA The left atrium size is normal. The right atrium size is normal. The interatrial septum is intact wit h no evidence for an atrial septal defect or patent foramen ovale as noted on 2-D or Doppler imaging. AORTIC VALVE The aortic valve is mildly thickened but opens well. Doppler and Color Flow revealed no significant a ortic regurgitation. There is no significant aortic valvular stenosis. MITRAL VALVE The mitral valve is calcified but opens well. There is no evidence of mitral valve prolapse. There is no mitral valve stenosis. Doppler and Color Flow revealed no mitral valve regurgitation noted. TRICUSPID VALVE The tricuspid valve is normal in structure and function. Doppler and Color Flow revealed trace tricus pid regurgitation. The PA pressure was estimated at 30 mmHg. There is no tricuspid valve stenosis. PULMONIC VALVE The pulmonic valve is not well visualized. Doppler and Color Flow revealed trace pulmonic valvular re gurgitation. There is no pulmonic valvular stenosis. GREAT VESSELS The aortic root is normal in size. The ascending aorta is not well seen. The IVC is normal in size an d collapses >50% with inspiration. PERICARDIAL EFFUSION There is no evidence of significant pericardial effusion. Critical Notification Critical Value: No <Conclusion> The left ventricular systolic function is normal. The Ejection Fraction is 60-65%. There is normal LV segmental wall motion. Transmitral Doppler flow pattern is Grade I-abnormal relaxation pattern. Trace tricuspid regurgitation. The PA pressure was estimated at 30 mmHg. There is no evidence of significant pericardial effusion. Signed by : Jim Dennis, Electronically Approved : 11/20/2020 15:02:08
--- NOTE | 2020-11-20 16:10 | NUR ---
PATIENT LEAVES THE UNIT PER STRETCHER, AND ACCOMPANIED BY 2 TRANSPORTERS, EMOTIONAL SUPPORT GIVEN, FOLLOW UP APPOINTMENTS ENCOURAGED.
[2021-03-06] MEDS ORDERED: ACYC-12 PO (20:02)
[2021-03-06] MEDS ORDERED: SERT100T PO (20:02)
[2021-03-06] MEDS ORDERED: METO25TA4 PO (20:57)
[2021-03-15] MEDS ORDERED: DOCU-153 PO (12:47)
[2021-03-15] MEDS ORDERED: LACT1CAP19 PO (12:47)
[2021-03-15] MEDS ORDERED: ACET325T21 PO (12:47)
== END 2020-11-20 16:10 | DRG 177 ==
LOC: ER 18:29 → 6 SOUTH 21:23 → 5 NORTH 22:43
PROVIDERS: ADMIT Internal Medicine; ATTEND Internal Medicine
DX: J15.6 Pneumonia due to other Gram-negative bacteria (principal); N17.0 Acute kidney failure with tubular necrosis; I13.0 Hypertensive heart and chronic kidney disease with heart failure and stage 1 through stage 4 chronic kidney disease, or unspecified chronic kidney disease; J98.11 Atelectasis; Z20.822 Contact with and (suspected) exposure to COVID-19; N18.9 Chronic kidney disease, unspecified; Z89.512 Acquired absence of left leg below knee; E11.22 Type 2 diabetes mellitus with diabetic chronic kidney disease; E11.51 Type 2 diabetes mellitus with diabetic peripheral angiopathy without gangrene; I50.9 Heart failure, unspecified; E03.9 Hypothyroidism, unspecified; E78.5 Hyperlipidemia, unspecified; I25.10 Atherosclerotic heart disease of native coronary artery without angina pectoris; N40.0 Benign prostatic hyperplasia without lower urinary tract symptoms; G47.00 Insomnia, unspecified; D63.1 Anemia in chronic kidney disease; E66.9 Obesity, unspecified; Z68.20 Body mass index [BMI] 20.0-20.9, adult; E87.70 Fluid overload, unspecified; Z82.49 Family history of ischemic heart disease and other diseases of the circulatory system; Z87.891 Personal history of nicotine dependence; Z95.5 Presence of coronary angioplasty implant and graft
CPT/HCPCS: 36415; 36600; 71045; 80048; 80053; 81001; 82607; 82805; 82962; 83605; 83735; 83880; 84443; 84484; 85007; 85025; 93005; 93306; 94640; 94760; 96365; 96366; 96375; 99285; J0456; J0696; J1650; J1815; J3411; J7050; J7060; 97530-GP; 97535-GO; G0378; J7030

== ENCOUNTER 2021-03-26 09:20 | Emergency (ER) | payer MEDICARE, OTHER ==
[~2021-03-26] VITALS: Ht 170.2 cm; Wt 72.7 kg
[~2021-03-26 09:20] MED LIST changes: +ACET325T21 PO; +ACYC-12 PO; +ATRO2DRO3 OD; +CARB15DR3 LEFTEYE; +DOCU-153 PO; +DOXY100C2 PO; +INSU100C4 SQ; +LACT20SO PO; +METO25TA4 PO; +POLY10DR LEFTEYE; +SENN8.8S13 PO; +SERT100T PO; +SERT50TA PO; +erythromycin oint OS
[2021-03-26 10:00] LABS: BASO # 0.1 x10^3/uL (0.0-0.2); BASO % 1 % (0-3); EOS # 0.2 x10^3/uL (0.0-0.7); EOS % 3 % (0-3); HEMATOCRIT 36.6 % (39.0-53.0); HEMOGLOBIN 12.2 g/dL (13.0-17.5); LYMPH # 1.1 x10^3/uL (1.0-4.8); LYMPH % 15 % (24-48); MEAN CORPUSCULAR HEMOGLOBIN 32 pg (25-35); MEAN CORPUSCULAR HGB CONC 33 g/dL (31-37); MEAN CORPUSCULAR VOLUME 95 fL (79-100); MONO # 0.9 x10^3/uL (0.0-1.1); MONO % 11 % (0-9); NEUT # 5.5 x10^3/uL (1.8-7.7); NEUT % 71 % (31-73); PLATELET COUNT 289 x10^3/uL (140-400); RED BLOOD COUNT 3.87 x10^6/uL (4.30-5.70); RED CELL DISTRIBUTION WIDTH 15.2 % (11.5-14.5); WHITE BLOOD COUNT 7.8 x10^3/uL (4.0-11.0)
[2021-03-26] MEDS ORDERED: DEXTROSE 50% 25 GM / 50ML DISP.SYRIN. IV ONE (10:00)
[2021-03-26 10:08] LABS: CALCIUM 8.4 mg/dL (8.5-10.1); CREATININE 1.6 mg/dL (0.7-1.3); GFR 42.3
--- NOTE | 2021-03-26 10:10 | PHYS DOC ---
Past Medical History Past Medical History: Anemia, CHF, CVA, Diabetes-Type II, High Cholesterol, Hypertension, Hypothyroid, Other Additional Past Medical Histor: CKD,OCD,BPH,PVD Past Surgical History: Other Additional Past Surgical Histo: L BKA,R TOES AMPUTATION Smoking Status: Former Smoker Alcohol Use: None General Adult EDM: Chief Complaint: HYPOGLYCEMIA HPI: HPI: 76-year-old male with multiple comorbidities (per emr review-Anemia, CHF, CVA, Diabetes-Type II, High Cholesterol, Hypertension, Hypothyroid, CKD,OCD,BPH,PVD) presents to the ED after patient was unresponsive at breakfast early this morning. EMS reported to RN that patient was given his insulin and ate a full breakfast. Glucose per EMS was 52 and patient was given D10. Glucose on arrival 169. Patient states "my glucose bottomed." No NH documents present in ed. Pt recently discharged this month-is not on any oral sulfonylureas, is on detemir and aspart insulin. Review of Systems: Review of Systems: Constitutional: Denies fever or chills. [] Eyes: Denies change in visual acuity. [] HENT: Denies nasal congestion or sore throat. [] Respiratory: Denies cough or shortness of breath. [] Cardiovascular: Denies chest pain or edema. [] GI: Denies abdominal pain, nausea, vomiting, bloody stools or diarrhea. [] : Denies dysuriaor hematuria Musculoskeletal: Denies back pain or joint pain. [] Integument: Denies rash or diaphoresis Neurologic: Denies headache, focal weakness or sensory changes. [] Endocrine: Denies polyuria or polydipsia. [] Lymphatic: Denies swollen glands. [] Psychiatric: Denies depression or anxiety. [] Heart Score: C/O Chest Pain: No Risk Factors: Risk Factors: DM, Current or recent (<one month) smoker, HTN, HLP, family history of CAD, obesity. Risk Scores: Score 0 - 3: 2.5% MACE over next 6 weeks - Discharge Home Score 4 - 6: 20.3% MACE over next 6 weeks - Admit for Clinical Observation Score 7 - 10: 72.7% MACE over next 6 weeks - Early Invasive Strategies Current Medications: Current Medications Medications (Trade) Dose Ordered Sig/Zeeshan Start Time Stop Time Status Last Admin Dose Admin Dextrose (Dextrose 50%-Water Syringe) 25 gm 1X ONCE 03/26/21 10:00 03/26/21 10:01 DC 03/26/21 10:04 25 GM Allergies: Allergies: Allergies Coded Allergies Type Severity Reaction Last Updated Verified I S O L A T I O N *CONTACT* Allergy Unknown 03/12/21 Yes No Known Medication Allergies Allergy Unknown 03/12/21 Yes Physical Exam: PE: Constitutional: Afebrile, no acute distress, non-toxic appearance. HENT: Normocephalic, atraumatic, very dry mucous membranes Eyes: EOMI, conjunctiva normal, no discharge, left eye with corneal opacification, Neck: Normal range of motion, supple, Cardiovascular: S1/2 present, regular rhythm, requires sternal rub to wake but admits to "low glucose" Lungs & Thorax: Speaking in full sentences, bilateral equal chest rise, no tachypnea or increased work of breathing Abdomen: soft, no tenderness, Skin: Warm, dry, no erythema, no rash. [] Back: No midline tenderness, no CVA tenderness. [] Extremities: No tenderness, no cyanosis, no unilateral lower extremity edema, left BKA Neurologic: Alert and oriented X 3-knows normal, year, hospital name/location/home address/reason for coming to the emergency department, normal motor function, normal sensory function, no focal deficits noted. [] Psychologic: Affect normal, judgement normal, mood normal. [] Current Patient Data: Labs: Laboratory Tests Test 03/26/21 09:38 03/26/21 09:49 Glucose (Fingerstick) 93 mg/dL (70-99) White Blood Count 7.8 x10^3/uL (4.0-11.0) Red Blood Count 3.87 x10^6/uL (4.30-5.70) L Hemoglobin 12.2 g/dL (13.0-17.5) L Hematocrit 36.6 % (39.0-53.0) L Mean Corpuscular Volume 95 fL (79-100) Mean Corpuscular Hemoglobin 32 pg (25-35) Mean Corpuscular Hemoglobin Concent 33 g/dL (31-37) Red Cell Distribution Width 15.2 % (11.5-14.5) H Platelet Count 289 x10^3/uL (140-400) Neutrophils (%) (Auto) 71 % (31-73) Lymphocytes (%) (Auto) 15 % (24-48) L Monocytes (%) (Auto) 11 % (0-9) H Eosinophils (%) (Auto) 3 % (0-3) Basophils (%) (Auto) 1 % (0-3) Neutrophils # (Auto) 5.5 x10^3/uL (1.8-7.7) Lymphocytes # (Auto) 1.1 x10^3/uL (1.0-4.8) Monocytes # (Auto) 0.9 x10^3/uL (0.0-1.1) Eosinophils # (Auto) 0.2 x10^3/uL (0.0-0.7) Basophils # (Auto) 0.1 x10^3/uL (0.0-0.2) Sodium Level 147 mmol/L (136-145) H Potassium Level 4.0 mmol/L (3.5-5.1) Chloride Level 110 mmol/L (98-107) H Carbon Dioxide Level 28 mmol/L (21-32) Anion Gap 9 (6-14) Blood Urea Nitrogen 27 mg/dL (8-26) H Creatinine 1.6 mg/dL (0.7-1.3) H Estimated GFR (Cockcroft-Gault) 42.3 BUN/Creatinine Ratio 17 (6-20) Glucose Level 82 mg/dL (70-99) Calcium Level 8.4 mg/dL (8.5-10.1) L Magnesium Level Pending Total Bilirubin Pending Aspartate Amino Transferase (AST) Pending Alanine Aminotransferase (ALT) Pending Alkaline Phosphatase Pending Total Protein Pending Albumin Pending Albumin/Globulin Ratio Pending Laboratory Tests 03/26/21 09:49 Laboratory Tests 03/26/21 09:49 EKG: EKG: Sinus rhythm at 72 bpm, left axis deviation, QTC 446, T wave inversion lead III, no ST lesions or ST depressions, no active chest pain Radiology/Procedures: Radiology/Procedures: IMAGING REPORT Signed PATIENT: EVE DEMPSEYOUNT: [id number] : 1945 LOCATION: ER AGE: 76 SEX: M EXAM STATUS: REG ER ORD. PHYSICIAN: ROBERT MELCHOR DO REASON: AMS PROCEDURE: CT HEAD AND CERVICAL SPINE WO EXAM: Head and cervical spine CT without contrast. HISTORY: Altered mental status. TECHNIQUE: Computed tomographic images of the head and cervical spine were obta ined without contrast. *One or more of the following individualized dose reduction techniques were utilized for this examination: 1. Automated exposure control. 2. Adjustment of the mA and/or kV according to patient size. 3. Use of iterative reconstruction technique. COMPARISON: 03/06/2021. FINDINGS: Head: There has been no appreciable change in multiple areas of encephalomalacia within the cerebral hemispheres due to chronic infarction. This includes chronic infarcts within the right greater than left frontal lobes, right temporal lobe and left occipital lobe. There is also a chronic appearing infarct within the right thalamus. These findings are superimposed on cerebral white matter changes likely due to chronic small vessel disease and cerebral atrophy with compensatory enlargement of the ventricles. There is no hemorrhage. There is evidence of lens surgery. The paranasal sinuses are unremarkable. There is minimal mastoid fluid. There is no suspicious calvarial lesion. Cervical spine: There is no listhesis. The vertebral bodies are normal in height. There is calcification of the disc space at C3-C4. There is partial fusion of the facet joints at this level. There is multilevel endplate remodeling and facet arthropathy. There is no fracture or suspicious osseous lesion. The combination of degenerative changes results in mild right foraminal stenosis at C2-C3, moderate right and moderate to severe left foraminal stenosis at C3-C4 and moderate to severe right foraminal stenosis at C4-C5. The airways widely patent. IMPRESSION: 1. Multiple chronic appearing infarcts within the cerebral hemispheres, stable in appearance. Note is made that MRI is more sensitive for acute infarction. 2. Extensive cerebral white matter changes, likely due to chronic small vessel disease. The superimposed on cerebral atrophy. 3. Multilevel degenerative change involving the cervical spine, resulting in stenosis as described above. Electronically signed by: Reina Sultana MD (03/26/2021 11:01 AM) [id number] DICTATED and SIGNED BY: REINA SULTANA MD DATE: 03/26/21 [id number] IMAGING REPORT Signed PATIENT: EVE DEMPSEY DECCOUNT: [id number] : 1945 LOCATION: ER AGE: 76 SEX: M EXAM STATUS: REG ER ORD. PHYSICIAN: ROBERT MELCHOR DO REASON: unresposinve, hypoglycemic PROCEDURE: PORTABLE CHEST 1V EXAM: Chest, single view. HISTORY: Unresponsive. COMPARISON: 03/06/2021 FINDINGS: A frontal view of the chest is obtained. There is stable suspected left greater than right lower lobe atelectasis. There is no consolidation, pleural effusion or pneumothorax. There is a stable cardiac silhouette. IMPRESSION: Stable suspected left greater than right lower lobe atelectasis. Electronically signed by: Reina Sultana MD (03/26/2021 10:28 AM) [id number] DICTATED and SIGNED BY: REINA SULTANA MD DATE: 03/26/21 [id number] Course & Med Decision Making: Course & Med Decision Making Pertinent Labs and Imaging studies reviewed. (See chart for details) Concern for hypoglycemia in the setting of possible dementia versus intermittent delirium (again no NH documents sent with pt) 2/2 dehydration and/or uti. Patient was initially sleepy/lethargic but arousable on arrival. Mental status has signficantly improved (ems agrees-they drove pt this am) after given D10 and D50 with repeat glucose checks. Pt was seen having a full conversation with his son over the phone. Patient is oriented to month and year and understands his son is going to call him later tonight when he returns to [place]. Patient did void in ED stretcher but denies any dysuria or hematuria. At time of discharge w/EMS arrival, patient appeared slightly delirious/confused, making bizarre comments but is still oriented. Urine hasn't been obtained-pt voided in ed stretcher. Patient well-appearing, no leukocytosis, does not meet sepsis criteria. Will treat for UTI with fosfomycin and have retirement facility recheck urinalysis. Will discharge home with strict ED return precautions were given for confusion, fall, head injury, agitation, lethargy, persistent nausea or vomiting or fever. Encouraged urgent outpatient follow-up with PMD and nephr ology for definitive management. Life-threatening processes were considered but are low suspicion at this time, given history, physical exam and ED workup. Pt was educated on all prescription medications and adverse effects. All patient's questions were answered and pt was stable at time of discharge. Life/limb-threatening differential includes but is not limited to, end organ damage/sepsis, trauma/abuse/neglect, neurologic deficit, alcohol/drug ingestion, toxidrome, suicidal/homicidal ideations plans or attempts, psychosis or mental illness resulting in self neglect and inability to care for self. I spoken with the patient and her caregivers. I explained the patient's condition, diagnoses and treatment plan based on the information available to me at this time. I have answered the patient and her caregiver's questions and addressed any concerns. The patient and her caregivers have a good understanding of patient's diagnosis, condition and treatment plan as can be expected at this point. Vital signs have been stable. Patient's condition is stable and appropriate for discharge from the emergency department. Patient will pursue further outpatient evaluation with primary care physician or other designated or consulting physician as outlined in the discharge instructions. The patient and/or caregivers are agreeable to this plan of care and follow-up instructions have been explained in detail. The patient and/or caregivers have received these instructions in written form and have expressed an understanding of the discharge instructions. The patient and/or caregivers are aware that any significant change of condition or worsening of symptoms should prompt immediate return to this or the closest emergency department or call to 911. Heather Disclaimer: Heather Disclaimer: This electronic medical record was generated, in whole or in part, using a voice recognition dictation system. Departure Departure Impression: Primary Impression: Hypoglycemia Additional Impressions: ABA (acute kidney injury) Delirium Disposition: 03 SNF FACILITY Condition: STABLE Referrals: LOVE CRAIG MD (PCP) Follow-up in 24 hours for reevaluation of URINALYSIS or FOLLOW UP WITH FAMILY MEDICINE: [address] [facility] [place] [address] Patient Instructions: Acute Kidney Injury, Hypoglycemia (Low Blood Sugar) Additional Instructions: FOLLOW UP WITH NEPHROLOGY: For reevaluation/definitive management of renal injury/disease [facility] [place] [address] [place] [address] EMERGENCY DEPARTMENT GENERAL DISCHARGE INSTRUCTIONS Thank you for coming to [facility] Emergency Department (ED) today and trusting us with you care. We trust that you had a positive experience in our Emergency Department. If you wish to speak to the department management, you may call the Director at [phone]. YOUR FOLLOW UP INSTRUCTIONS ARE FOLLOWS: 1. Do you have a private Doctor? If you do not have a private doctor, please ask for a resource list of physicians or clinics that may be able to assist you with follow up care. 2. The Emergency Physicain has interpreted your x-rays. The X-Ray specialist will also review them. If there is a change in the findings, you will be notified in 48 hours when at all possible. 3. A lab test or culture has been done, your results will be reviewed and you will be notified if you need a change in treatment. ADDITIONAL INSTRUCTIONS AND INFORMATION: 1. Your care today has been supervised by a physician who is specially trained in emergency care. Many problems require more than one evaluation for a complete diagnosis and treatment. We recommend that you schedule your follow up appointment as recommended to ensure complete treatment of you illness or injury. If you are unable to obtain follow up care and continue to have a problem, or if your condition worsens, we recommend that you return to the ED. 2. We are not able to safely determine your condition over the phone nor are we able to give sound medical advice over the phone. For these safety reasons, if you call for medical advice we will ask you to come to the ED for further evaluation. 3. If you have any questions regarding these discharge instructions please call the ED at [phone]. SAFETY INFORMATION: In the interest of safety, wellness, and injury prevention; we encourage you to wear your sealbelt, if you smoke; quite smoking, and we encourage family to use a protective helmet for bicycling and other sporting events that present an increased risk for head injury. IF YOUR SYMPTOMS WORSEN OR NEW SYMPTOMS DEVELOP, OR YOU HAVE CONCERNS ABOUT YOUR CONDITION; OR IF YOUR CONDITION WORSENS WHILE YOU ARE WAITING FOR YOUR FOLLOW UP APPOINTMENT; EITHER CONTACT YOUR PRIMARY CARE DOCTOR, THE PHYSICIAN WHOSE NAME AND NUMBER YOU WERE GIVEN, OR RETURN TO THE ED IMMEDIATELY. ROBERT MELCHOR DO March 26, 2021 10:10
[2021-03-26 10:16] LABS: ALBUMIN/GLOBULIN RATIO 0.8 (1.0-1.7); MAGNESIUM 2.2 mg/dL (1.8-2.4); TOTAL BILIRUBIN 0.5 mg/dL (0.2-1.0); TOTAL PROTEIN 6.8 g/dL (6.4-8.2)
--- NOTE | 2021-03-26 10:30 | RAD ---
EXAM: Chest, single view. HISTORY: Unresponsive. COMPARISON: 03/06/2021 FINDINGS: A frontal view of the chest is obtained. There is stable suspected left greater than right lower lobe atelectasis. There is no consolidation, pleural effusion or pneumothorax. There is a stabl e cardiac silhouette. IMPRESSION: Stable suspected left greater than right lower lobe atelectasis. Electronically signed by: Reina Cline MD (03/26/2021 10:28 AM) [id number]
--- NOTE | 2021-03-26 11:03 | RAD ---
EXAM: Head and cervical spine CT without contrast. HISTORY: Altered mental status. TECHNIQUE: Computed tomographic images of the head and cervical spine were obtained without contrast. *One or more of the following individualized dose reduction techniques were utilized for this examina tion: 1. Automated exposure control. 2. Adjustment of the mA and/or kV according to patient size. 3. Use of iterative reconstruction technique. COMPARISON: 03/06/2021. FINDINGS: Head: There has been no appreciable change in multiple areas of encephalomalacia within the cerebral hemispheres due to chronic infarction. This includes chronic infarcts within the right greater than l eft frontal lobes, right temporal lobe and left occipital lobe. There is also a chronic appearing inf arct within the right thalamus. These findings are superimposed on cerebral white matter changes like ly due to chronic small vessel disease and cerebral atrophy with compensatory enlargement of the vent ricles. There is no hemorrhage. There is evidence of lens surgery. The paranasal sinuses are unremark able. There is minimal mastoid fluid. There is no suspicious calvarial lesion. Cervical spine: There is no listhesis. The vertebral bodies are normal in height. There is calcificat ion of the disc space at C3-C4. There is partial fusion of the facet joints at this level. There is m ultilevel endplate remodeling and facet arthropathy. There is no fracture or suspicious osseous lesio n. The combination of degenerative changes results in mild right foraminal stenosis at C2-C3, moderat e right and moderate to severe left foraminal stenosis at C3-C4 and moderate to severe right foramina l stenosis at C4-C5. The airways widely patent. IMPRESSION: 1. Multiple chronic appearing infarcts within the cerebral hemispheres, stable in appearance. Note is made that MRI is more sensitive for acute infarction. 2. Extensive cerebral white matter changes, likely due to chronic small vessel disease. The superimpo sed on cerebral atrophy. 3. Multilevel degenerative change involving the cervical spine, resulting in stenosis as described ab ove. Electronically signed by: Reina Cline MD (03/26/2021 11:01 AM) [id number]
[2021-03-26] MEDS ORDERED: IV RINGERS,LACTATED 500ML 500 ML IV ONE (12:15)
[2021-03-26 14:20] VITALS: BP 211/93
--- NOTE | 2021-03-26 14:49 | EKG ---
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
[2021-03-26] MEDS ORDERED: FOSFOMYCIN TROMETHAMINE 3 GM PACKET PO ONE (15:30)
== END 2021-03-26 15:33 | disposition home or self-care (01) ==
LOC: ER 09:20
DX: E11.649 Type 2 diabetes mellitus with hypoglycemia without coma (principal); N17.9 Acute kidney failure, unspecified; R41.0 Disorientation, unspecified; E78.00 Pure hypercholesterolemia, unspecified; E03.9 Hypothyroidism, unspecified; E11.22 Type 2 diabetes mellitus with diabetic chronic kidney disease; I13.0 Hypertensive heart and chronic kidney disease with heart failure and stage 1 through stage 4 chronic kidney disease, or unspecified chronic kidney disease; N18.9 Chronic kidney disease, unspecified; Z86.73 Personal history of transient ischemic attack (TIA), and cerebral infarction without residual deficits; Z87.891 Personal history of nicotine dependence; Z91.041 Radiographic dye allergy status
CPT/HCPCS: 36415; 70450; 71045; 72125; 80053; 82962; 83735; 84484; 85025; 93005; 96374; 99285; J7120

== ENCOUNTER 2021-05-17 17:44 | Inpatient (IN) | payer MEDICARE, OTHER ==
[~2021-05-17] VITALS: Ht 170.2 cm; Wt 79.8 kg
[2021-05-17 18:25] LABS: BASO % 0 % (0-3); EOS % 0 % (0-3); HEMATOCRIT 39.8 % (39.0-53.0); HEMOGLOBIN 13.1 g/dL (13.0-17.5); LYMPH # 0.3 x10^3/uL (1.0-4.8); LYMPH % 2 % (24-48); MEAN CORPUSCULAR HEMOGLOBIN 31 pg (25-35); MEAN CORPUSCULAR HGB CONC 33 g/dL (31-37); MEAN CORPUSCULAR VOLUME 93 fL (79-100); MONO # 1.2 x10^3/uL (0.0-1.1); MONO % 8 % (0-9); NEUT # 12.2 x10^3/uL (1.8-7.7); NEUT % 89 % (31-73); PLATELET COUNT 218 x10^3/uL (140-400); RED CELL DISTRIBUTION WIDTH 14.1 % (11.5-14.5); WHITE BLOOD COUNT 13.7 x10^3/uL (4.0-11.0)
--- NOTE | 2021-05-17 18:26 | EKG ---
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
[2021-05-17 18:46] LABS: % LYMPHS 2 % (24-48); % MONOS 5 % (0-10); % SEGS 93 % (35-66); PLT ESTIMATE ADEQUATE (ADEQUATE)
[2021-05-17 18:47] LABS: CALCIUM 9.2 mg/dL (8.5-10.1); CREATININE 1.6 mg/dL (0.7-1.3); GFR 42.3; POTASSIUM 5.7 mmol/L (3.5-5.1)
[2021-05-17 18:48] LABS: TOXIC GRANULATION SLIGHT
[2021-05-17 18:53] LABS: ALBUMIN 3.1 g/dL (3.4-5.0); ALBUMIN/GLOBULIN RATIO 0.7 (1.0-1.7); MAGNESIUM 2.1 mg/dL (1.8-2.4); TOTAL BILIRUBIN 0.7 mg/dL (0.2-1.0); TOTAL PROTEIN 7.4 g/dL (6.4-8.2)
--- NOTE | 2021-05-17 19:04 | RAD ---
EXAM: CHEST 1 VIEW History: Altered mental status COMPARISON: 03/26/2021 TECHNIQUE: Single portable radiograph of the chest FINDINGS: Mild cardiomegaly. Bibasilar lung airspace opacities. Mild prominent bilateral interstitia l lung markings. IMPRESSION: Bibasilar lung airspace opacities likely atelectasis or infiltrates. Electronically signed by: Fidel Oliveira MD (05/17/2021 7:02 PM) [id number]
--- NOTE | 2021-05-17 20:00 | PHYS DOC ---
Past Medical History Past Medical History: Anemia, CHF, CVA, Dementia, Diabetes-Type II, High Cholesterol, Hypertension, Hypothyroid, Renal Disease, Other Additional Past Medical Histor: CKD,OCD,BPH,PVD (ELISABETH WHEATLEY ASSOCIATE DESIGNER) Past Surgical History: Other Additional Past Surgical Histo: RIGHT TOES, LEFT BKA (ELISABETH WHEATLEY ASSOCIATE DESIGNER) Smoking Status: Unknown if ever smoked Alcohol Use: None (ELISABETH WHEATLEY APRN) General Adult EDM: Chief Complaint: ALTERED MENTAL STATUS HPI: HPI: Patient is a 76 year old male with a history of diabetes type 2, anemia, kidney disease, CHF, CVA, dementia, hypertension, high cholesterol among other illnesses who presents today from a senior care to be evaluated for altered mental status. Patient is alert and oriented to self and is a poor historian. Currently history is limited, he is able to answer few questions. (ELISABETH WHEATLEY ASSOCIATE DESIGNER) Review of Systems: Review of Systems: Constitutional: Unable to assess due to mentation Eyes: Unable to assess due to mentation HENT: Unable to assess due to mentation Respiratory: Unable to assess due to mentation Cardiovascular: Unable to assess due to mentation GI: Unable to assess due to mentation : Unable to assess due to mentation Musculoskeletal: Unable to assess due to mentation Integument: Unable to assess due to mental Neurologic: intermediate reports altered mental status Psychiatric: Unable to assess due to mentation (ELISABETH WHEATLEY ASSOCIATE DESIGNER) Heart Score: C/O Chest Pain: N/A Risk Factors: Risk Factors: DM, Current or recent (<one month) smoker, HTN, HLP, family history of CAD, obesity. Risk Scores: Score 0 - 3: 2.5% MACE over next 6 weeks - Discharge Home Score 4 - 6: 20.3% MACE over next 6 weeks - Admit for Clinical Observation Score 7 - 10: 72.7% MACE over next 6 weeks - Early Invasive Strategies (ELISABETH WHEATLEY ASSOCIATE DESIGNER) Allergies: Allergies: Allergies Coded Allergies Type Severity Reaction Last Updated Verified I S O L A T I O N *CONTACT* Allergy Unknown 03/12/21 Yes No Known Medication Allergies Allergy Unknown 03/12/21 Yes (ELISABETH WHEATLEY ASSOCIATE DESIGNER) Physical Exam: PE: Constitutional: Well developed, well nourished, no acute distress, non-toxic appearance. [] HENT: Normocephalic, atraumatic, bilateral external ears normal, oropharynx moist, no oral exudates, nose normal. [] Eyes: PERRLA, EOMI, conjunctiva normal, no discharge. [] Neck: Normal range of motion, no tenderness, supple, no stridor. [] Cardiovascular:Heart rate regular rhythm Lungs & Thorax: Bilateral breath sounds clear to auscultation [] Abdomen: Bowel sounds normal, soft, no tenderness, no masses, no pulsatile masses. [] Skin: Warm, dry, no erythema, no rash. [] Back: No tenderness, no CVA tenderness. [] Extremities: Bilateral below the knee amputations, range of motion limited due to amputations Neurologic: Alert and oriented X 1, normal motor function, normal sensory function, no focal deficits noted. [] Psychologic: Flat affect (MUTUNGA,ELISABETH M ASSOCIATE DESIGNER) Current Patient Data: Labs: Laboratory Tests Test 05/17/21 18:10 White Blood Count 13.7 x10^3/uL (4.0-11.0) H Red Blood Count 4.30 x10^6/uL (4.30-5.70) Hemoglobin 13.1 g/dL (13.0-17.5) Hematocrit 39.8 % (39.0-53.0) Mean Corpuscular Volume 93 fL (79-100) Mean Corpuscular Hemoglobin 31 pg (25-35) Mean Corpuscular Hemoglobin Concent 33 g/dL (31-37) Red Cell Distribution Width 14.1 % (11.5-14.5) Platelet Count 218 x10^3/uL (140-400) Neutrophils (%) (Auto) 89 % (31-73) H Lymphocytes (%) (Auto) 2 % (24-48) L Monocytes (%) (Auto) 8 % (0-9) Eosinophils (%) (Auto) 0 % (0-3) Basophils (%) (Auto) 0 % (0-3) Neutrophils # (Auto) 12.2 x10^3/uL (1.8-7.7) H Lymphocytes # (Auto) 0.3 x10^3/uL (1.0-4.8) L Monocytes # (Auto) 1.2 x10^3/uL (0.0-1.1) H Eosinophils # (Auto) 0.0 x10^3/uL (0.0-0.7) Basophils # (Auto) 0.0 x10^3/uL (0.0-0.2) Segmented Neutrophils % 93 % (35-66) H Lymphocytes % 2 % (24-48) L Monocytes % 5 % (0-10) Toxic Granulation Slight Platelet Estimate Adequate (ADEQUATE) Sodium Level 142 mmol/L (136-145) Potassium Level 5.7 mmol/L (3.5-5.1) H Chloride Level 109 mmol/L (98-107) H Carbon Dioxide Level 22 mmol/L (21-32) Anion Gap 11 (6-14) Blood Urea Nitrogen 40 mg/dL (8-26) H Creatinine 1.6 mg/dL (0.7-1.3) H Estimated GFR (Cockcroft-Gault) 42.3 BUN/Creatinine Ratio 25 (6-20) H Glucose Level 176 mg/dL (70-99) H Lactic Acid Level 1.0 mmol/L (0.4-2.0) Calcium Level 9.2 mg/dL (8.5-10.1) Magnesium Level 2.1 mg/dL (1.8-2.4) Total Bilirubin 0.7 mg/dL (0.2-1.0) Aspartate Amino Transferase (AST) 37 U/L (15-37) Alanine Aminotransferase (ALT) 31 U/L (16-63) Alkaline Phosphatase 129 U/L (46-116) H Creatine Kinase 120 U/L (39-308) Creatine Kinase MB (Mass) 1.2 ng/mL (0.0-3.6) Creatine Kinase MB Relative Index 1.0 % (0-4) Troponin I Quantitative 0.066 ng/mL (0.000-0.055) RN-Qda-C-Type Natriuretic Peptide 3078 pg/mL (0-449) H Total Protein 7.4 g/dL (6.4-8.2) Albumin 3.1 g/dL (3.4-5.0) L Albumin/Globulin Ratio 0.7 (1.0-1.7) L Thyroid Stimulating Hormone (TSH) 1.505 uIU/mL (0.358-3.74) Laboratory Tests 05/17/21 18:10 Laboratory Tests 05/17/21 18:10 Vital Signs: Vital Signs Date Time Temp Pulse Resp B/P (MAP) Pulse Ox O2 Delivery O2 Flow Rate FiO2 05/17/21 18:36 93 21 179/84 (115) 95 Room Air 05/17/21 17:44 99.3 99.3 (ELISABETH WHEATLEY APRN) EKG: EKG: [] (ELISABETH WHEATLEY APRN) Radiology/Procedures: Radiology/Procedures: PROCEDURE: PORTABLE CHEST 1V EXAM: CHEST 1 VIEW History: Altered mental status COMPARISON: 03/26/2021 TECHNIQUE: Single portable radiograph of the chest FINDINGS: Mild cardiomegaly. Bibasilar lung airspace opacities. Mild prominent bilateral interstitial lung markings. IMPRESSION: Bibasilar lung airspace opacities likely atelectasis or infiltrates. Electronically signed by: Fidel Oliveira MD (05/17/2021 7:02 PM) [id number] DICTATED and SIGNED BY: FIDEL OLIVEIRA MD DATE: 05/17/21 [id number] 0 (ELISABETH WHEATLEY APRN) Course & Med Decision Making: Course & Med Decision Making Pertinent Labs and Imaging studies reviewed. (See chart for details) This is a 76-year-old male patient presenting to the ED today from the senior care to be evaluated for altered mental status. Patient has dementia and is alert and oriented to self only. Chest x-ray interpreted by radiologist is noted for atelectasis or infiltrates CBC with a WBC of 13.7. CMP with potassium of 5.7 and documentation from the lab showing the blood was slightly hemolyzed. Creatinine 1.6, BUN 40. Troponin 0.066-patient has no chest pain though a poor historian. BNP [address] of the head and UA. spoke with Dr. Pinto who accepted patient for admission (ELISABETH WHEATLEY APRN) Course & Med Decision Making Patients Care and treatment plan provided by ER Nurse Practitioner. I was available for consult. Patient's chart reviewed. (MIGUEL LONDON DO) Heather Disclaimer: Dragluis m Disclaimer: This electronic medical record was generated, in whole or in part, using a voice recognition dictation system. (ELISABETH WHEATLEY APRN) Departure Departure Impression: Primary Impression: Altered mental status Qualified Codes: R41.82 - Altered mental status, unspecified Disposition: ADMITTED INPATIENT Condition: STABLE Referrals: LOVE CRAIG MD (PCP) ELISABETH WHEATLEY APRN May 17, 2021 20:00 MIGUEL LONDON DO May 23, 2021 20:21
[2021-05-17] MEDS ORDERED: ONDANSETRON PF 4 MG/2 ML VIAL. IV PRN (20:45)
[2021-05-17] MEDS ORDERED: MORPHINE SULFATE 2 MG/ML INJ. IV PRN (20:45)
[2021-05-17] MEDS ORDERED: ACETAMINOPHEN 325 MG TABLET. PO PRN (20:45)
[2021-05-17 22:30] VITALS: BP 141/64
[2021-05-17 22:59] LABS: BILIRUBIN,URINE NEGATIVE (NEG); CLARITY,URINE CLEAR; COLOR,URINE YELLOW; NITRITE,URINE NEGATIVE (NEG); PROTEIN,URINE 100 mg/dL (NEG-TRACE); UROBILINOGEN,URINE 0.2 mg/dL (0.2 mg/dL)
[2021-05-17 23:13] LABS: AMORPHOUS SEDIMENT,UR PRESENT /HPF; BACTERIA,URINE 0 /HPF (0-FEW); RBC,URINE 0 /HPF (0-2)
[2021-05-17] MEDS ORDERED: LISI20TA18 PO (23:13)
[2021-05-17] MEDS ORDERED: DOCUSATE SODIUM 100 MG CAPSULE. PO PRN (23:15)
[2021-05-17] MEDS ORDERED: SENNOSIDES 8.6 MG TABLET PO PRN (23:30)
[2021-05-17] MEDS ORDERED: FUROSEMIDE 20 MG/2 ML VIAL. IVP ONE (23:45)
--- NOTE | 2021-05-17 23:55 | RAD ---
PQRS Compliance Statement: One or more of the following individualized dose reduction techniques were utilized for this examinat ion: 1. Automated exposure control 2. Adjustment of the mA and/or kV according to patient size 3. Use of iterative reconstruction technique CT head without contrast 05/17/2021 11:29 PM INDICATION: Acute mental status COMPARISON: 03/26/2021 TECHNIQUE: Multiple axial CT images of the head were obtained from skull base through the vertex with out intravenous contrast. FINDINGS: Head: Ventricles, sulci and basal cisterns are prominent compatible with mild general cerebral volume loss. There is no hydrocephalus. There is moderate territory subcortical and cortical based hypoattenuatio n involving the right frontal white matter involving the right frontal operculum, stable from prior e xamination compatible with remote ischemic changes. Small territory remote infarct involving the righ t temporal lobe and left occipital lobe. Findings are stable. No new areas of cerebral edema identifi ed. Low-attenuation in the periventricular white matter is suggestive of chronic small vessel ischemi c changes. There is no acute intracranial hemorrhage. There is no mass, mass effect or midline shift. Posterior fossa is normal in appearance. Visualized portions of the orbits are normal with exception of bilateral lens replacement. Paranasal sinuses are well aerated. Mastoid air cells are well aerated. Scalp and calvaria are normal. IMPRESSION: No acute intracranial hemorrhage. Stable multifocal remote infarcts involving the right frontal lobe, right temporal lobe and left occi pital lobe. Mild generalized cerebral volume loss. Low-attenuation in the periventricular white matter is suggest ousmane of chronic small vessel ischemic changes. Electronically signed by: Jane Pisano MD (05/17/2021 11:53 PM) [facility]
[2021-05-18 03:00] VITALS: BP 167/71
[2021-05-18 04:49] LABS: BASO # 0.1 x10^3/uL (0.0-0.2); BASO % 1 % (0-3); EOS % 0 % (0-3); HEMOGLOBIN 12.8 g/dL (13.0-17.5); LYMPH # 0.7 x10^3/uL (1.0-4.8); LYMPH % 5 % (24-48); MEAN CORPUSCULAR HEMOGLOBIN 31 pg (25-35); MEAN CORPUSCULAR HGB CONC 33 g/dL (31-37); MEAN CORPUSCULAR VOLUME 94 fL (79-100); MONO # 1.4 x10^3/uL (0.0-1.1); MONO % 11 % (0-9); NEUT # 10.5 x10^3/uL (1.8-7.7); NEUT % 83 % (31-73); PLATELET COUNT 188 x10^3/uL (140-400); RED BLOOD COUNT 4.15 x10^6/uL (4.30-5.70); RED CELL DISTRIBUTION WIDTH 14.1 % (11.5-14.5); WHITE BLOOD COUNT 12.5 x10^3/uL (4.0-11.0)
[2021-05-18 05:16] LABS: ALBUMIN/GLOBULIN RATIO 0.7 (1.0-1.7); CALCIUM 9.1 mg/dL (8.5-10.1); CREATININE 1.8 mg/dL (0.7-1.3); POTASSIUM 5.6 mmol/L (3.5-5.1); TOTAL BILIRUBIN 0.8 mg/dL (0.2-1.0); TOTAL PROTEIN 7.2 g/dL (6.4-8.2)
[2021-05-18] MEDS: LEVOTHYROXINE 50 MCG TABLET PO SCH (06:01)
--- NOTE | 2021-05-18 06:38 | NUR ---
IP: Pt's hx of mrsa is in a foot. Pt now with bilateral amputations. MDRO flag removed. Recommend Nozin/BEBAG protocol with pt for LTC facility.
[2021-05-18 07:00] VITALS: BP 158/73
--- NOTE | 2021-05-18 08:30 | PDOC1 ---
History and Physical Date of Admission Date of Admission DATE: 05/18/21 TIME: 08:29 Identification/Chief Complaint Chief Complaint altered mentation, leukocytosis, hx wounds History of Present Illness History of Present Illness [facility] from a [facility] for altered mental status. Patient is alert but NOT oriented to self BUT poor historian. 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 Findings are stable WBC 13.7 . WITH LEFT SHIFT, blood culture done x 1 in ER 76-year-old male with history of left BKA in 2018 He has a history of a right TMA He has a very small right foot wound on the plantar surface overlying his fifth metatarsal head minimal erythema // right TMA He has been treated for several other medical issues, including acute infectious encephalopathy, HCAP, ABA, anemia. He is a poor historian, history obtaining is difficult. hx RECENT percutaneous arterial intervention on the left leg, The patient was unable to give me accurate history. Wound care consulted, NEPHROLOGY CONSULTED PO KAYEXYLATE 15 GM X 1 pending, Cardiology consulted. emperic iv zosyn dosed renally hx Right DFU with underlying peripheral artery disease, status post recent angiogram with balloon angioplasty MARCH 2021 Past Medical History Past Medical History Past Medical History Past Medical History: Anemia, CHF, CVA, Dementia, Diabetes-Type II, High Cholesterol, Hypertension, Hypothyroid, Renal Disease, Other Additional Past Medical Histor: CKD,OCD,BPH,PVD Past Surgical History: Other Additional Past Surgical Histo: RIGHT TOES, LEFT BKA Smoking Status: Unknown if ever smoked Alcohol Use: None FHX HTN Cardiovascular: CAD, CHF, HTN, Hyperlipidemia, Other Pulmonary: Bronchitis CENTRAL NERVOUS SYSTEM: CVA, Periperal neuropathy GI: Constipation Heme/Onc: Anemia NOS Psych: Anxiety, Addictions Musculoskeletal: Osteoarthritis Renal/: Chronic renal insuff, Benign prostatic enlarg. Endocrine: Diabetes, Hypothyroidism Past Surgical History Past Surgical History: Cataract Removal, Tonsillectomy, Other Family History Family History: Diabetes, High Cholestrol, Hypertension Social History Smoke: No ALCOHOL: none Drugs: None Current Problem List Problem List Problems Medical Problems: (1) Altered mental status Status: Acute Current Medications Current Medications Current Medications Ondansetron HCl (Zofran) 4 mg PRN Q8HRS PRN IV NAUSEA/VOMITING; Start 05/17/21 at 20:45; Stop 05/18/21 at 20:44 Morphine Sulfate (Morphine Sulfate) 2 mg PRN Q2HR PRN IV PAIN; Start 05/17/21 at 20:45; Stop 05/18/21 at 20:44 Acetaminophen (Tylenol) 650 mg PRN Q4HRS PRN PO FEVER > 100.3'F; Start 05/17/21 at 20:45; Stop 05/18/21 at 20:44 Lorazepam (Ativan Inj) 1 mg 1X ONCE IVP ; Start 05/17/21 at 21:30; Stop 05/17/21 at 21:31; Status DC Aspirin (Ecotrin) 81 mg DAILYWBKFT PO ; Start 05/18/21 at 08:00 Atorvastatin Calcium (Lipitor) 40 mg HS PO ; Start 05/18/21 at 21:00 Clopidogrel Bisulfate (Plavix) 75 mg DAILYWBKFT PO ; Start 05/18/21 at 08:00 Docusate Sodium (Colace) 100 mg PRN DAILY PRN PO HARD STOOLS; Start 05/17/21 at 23:15 Levothyroxine Sodium (Synthroid) 50 mcg DAILY06 PO Last administered on 05/18/21at 06:01; Start 05/18/21 at 06:00 Metoprolol Succinate (Toprol Xl) 25 mg DAILY PO ; Start 05/18/21 at 09:00 Glycerin/ Hypromellose/ Polyethylene (Artificial Tears) 1 drop QID OU ; Start 05/18/21 at 09:00 Insulin Human Lispro (HumaLOG) 5 units DAILYWLUN SQ ; Start 05/18/21 at 12:00 Insulin Glargine (Lantus Syringe) 15 unit BID SQ ; Start 05/18/21 at 09:00 Sennosides (Senna) 8.6 mg PRN BID PRN PO CONSTIPATION 1ST CHOICE; Start 05/17/21 at 23:30 Sertraline HCl (Zoloft) 125 mg DAILY PO ; Start 05/18/21 at 09:00 Furosemide (Lasix) 20 mg 1X ONCE IVP Last administered on 05/18/21at 00:36; Start 05/17/21 at 23:45; Stop 05/17/21 at 23:46; Status DC Active Scripts Active Culturelle (Lactobacillus Rhamnosus Gg) 1 Each Cap.sprink 1 Cap PO BID 30 Days Dok (Docusate Sodium) 100 Mg Capsule 100 Mg PO PRN DAILY PRN 30 Days Acetaminophen 325 Mg Tablet 650 Mg PO PRN Q4HRS PRN 30 Days Furosemide 40 Mg Tablet 1 Tab PO PRN DAILY PRN 30 Days Clopidogrel (Clopidogrel Bisulfate) 75 Mg Tablet 75 Mg PO DAILYWBKFT 30 Days Aspirin Ec (Aspirin) 81 Mg Tablet.dr 81 Mg PO DAILYWBKFT 30 Days Reported Lisinopril 20 Mg Tablet 20 Mg PO DAILY Zoloft (Sertraline Hcl) 100 Mg Tablet 125 Mg PO DAILY Polytrim Eye Drops (Polymyxin B Sulf/Trimethoprim) 10 Ml Drops 1 Drop LEFTEYE BID Novolog (Insulin Aspart) 100 Unit/1 Ml Cartridge 5 Unit SQ DAILYWLUN Refresh Optive Eye Drops (Carboxymethylcellulos/Glycerin) 15 Ml Drops 1 Drop LEFTEYE QID Senna (Sennosides) 8.8 Mg/5 Ml Syrup 8.8 Mg PO PRN Q12HR PRN Melatonin 3 Mg Tablet 2 Tab PO QHS Levemir (Insulin Detemir) 100 Unit/1 Ml Vial 15 Unit SQ BID [erythromycin oint] OS BID Potassium Chloride (Potassium Chloride) 20 Meq Tablet.er 20 Meq PO DAILY Metoprolol Succinate ( Xl ) (Metoprolol Succinate) 25 Mg Tab.er.24h 25 Mg PO DAILY Lipitor (Atorvastatin Calcium) 40 Mg Tablet 40 Mg PO HS Synthroid (Levothyroxine Sodium) 50 Mcg Tablet 50 Mcg PO DAILYAC Allergies Allergies: Coded Allergies: No Known Medication Allergies (Verified Allergy, Unknown, 03/12/21) ROS Review of System poor appetite General: YES: Fatigue, Malaise, Appetite; No: Chills, Night Sweats, Other PSYCHOLOGICAL ROS: YES: Memory difficulties Eyes: Yes Decreased vision; No Blurry vision, No Double vision, No Dry eyes, No Excessive tearing, No Eye Pain, No Itchy Eyes, No Loss of vision, No Photophobia, No Scotomata, No Uses contacts, No Uses glasses, No Other HEENT: No: Heacaches, Visual Changes, Hearing change, Nasal congestion, Nasal discharge, Oral lesions, Sinus pain, Sore Throat, Epistaxis, Sneezing, Snoring, Tinnitus, Vertigo, Vocal changes, Other ALLERGY AND IMMUNOLOGY: No: Hives, Insect Bite Sensitivity, Itchy/Watery Eyes, Nasal Congestion, Post Nasal Drip, Seasonal Allergies, Other Hematological and Lymphatic: No: Bleeding Problems, Blood Clots, Blood Transfusions, Brusing, Night Sweats, Pallor, Swollen Lymph Nodes, Other Respiratory: No: Cough, Hemoptysis, Orthopnea, Pleuritic Pain, Shortness of breath, SOB with excertion, Sputum Changes, Stridor, Tachypnea, Wheezing, Other Musculoskeletal: Yes Joint Stiffness Neurological: Yes Gait Disturbance Skin: Yes Dry Skin, Yes Skin Lesion Changes Physical Exam Physical Exam Constitutional: Well developed, well nourished, no acute distress, non-toxic appearance. [] HENT: Normocephalic, atraumatic, bilateral external ears normal, oropharynx moist, no oral exudates, nose normal. [] Eyes: PERRLA, EOMI, conjunctiva normal, no discharge. [] Neck: Normal range of motion, no tenderness, supple, no stridor. [] Cardiovascular:Heart rate regular rhythm Lungs & Thorax: Bilateral breath sounds clear to auscultation [] Abdomen: Bowel sounds normal, soft, no tenderness, no masses, no pulsatile masses. [] Skin: Warm, dry, no erythema, . [] He has a very small right foot wound on the plantar surface overlying his fifth metatarsal head minimal erythema TMA Back: No tenderness, no CVA tenderness. [] Extremities: Bilateral below the knee amputations, range of motion limited due to amputations Neurologic: confused , normal sensory function, no focal deficits noted. [] Psychologic: Flat affect General: Alert, Cooperative, No acute distress Lungs: Clear to auscultation Heart: RRR Breasts: Not examined Abdomen: Normal bowel sounds, Soft Rectal Exam: not examined PELVIC: Examination not indicated Extremities: No cyanosis Neuro: Cranial nerves 3-12 NL Psych/Mental Status: Mood NL, Other (CONFUSED TO DETAILS) Vitals Vitals Vital Signs Date Time Temp Pulse Resp B/P (MAP) Pulse Ox O2 Delivery O2 Flow Rate FiO2 05/18/21 07:00 99.5 94 18 158/73 (101) 96 Room Air 99.5 Labs Labs Laboratory Tests Test 05/17/21 18:10 7/15/21 22:14 05/17/21 22:43 05/18/21 00:30 White Blood Count 13.7 x10^3/uL (4.0-11.0) Red Blood Count 4.30 x10^6/uL (4.30-5.70) Hemoglobin 13.1 g/dL (13.0-17.5) Hematocrit 39.8 % (39.0-53.0) Mean Corpuscular Volume 93 fL (79-100) Mean Corpuscular Hemoglobin 31 pg (25-35) Mean Corpuscular Hemoglobin Concent 33 g/dL (31-37) Red Cell Distribution Width 14.1 % (11.5-14.5) Platelet Count 218 x10^3/uL (140-400) Neutrophils (%) (Auto) 89 % (31-73) Lymphocytes (%) (Auto) 2 % (24-48) Monocytes (%) (Auto) 8 % (0-9) Eosinophils (%) (Auto) 0 % (0-3) Basophils (%) (Auto) 0 % (0-3) Neutrophils # (Auto) 12.2 x10^3/uL (1.8-7.7) Lymphocytes # (Auto) 0.3 x10^3/uL (1.0-4.8) Monocytes # (Auto) 1.2 x10^3/uL (0.0-1.1) Eosinophils # (Auto) 0.0 x10^3/uL (0.0-0.7) Basophils # (Auto) 0.0 x10^3/uL (0.0-0.2) Segmented Neutrophils % 93 % (35-66) Lymphocytes % 2 % (24-48) Monocytes % 5 % (0-10) Toxic Granulation Slight Platelet Estimate Adequate (ADEQUATE) Sodium Level 142 mmol/L (136-145) Potassium Level 5.7 mmol/L (3.5-5.1) Chloride Level 109 mmol/L (98-107) Carbon Dioxide Level 22 mmol/L (21-32) Anion Gap 11 (6-14) Blood Urea Nitrogen 40 mg/dL (8-26) Creatinine 1.6 mg/dL (0.7-1.3) Estimated GFR (Cockcroft-Gault) 42.3 BUN/Creatinine Ratio 25 (6-20) Glucose Level 176 mg/dL (70-99) Lactic Acid Level 1.0 mmol/L (0.4-2.0) Calcium Level 9.2 mg/dL (8.5-10.1) Magnesium Level 2.1 mg/dL (1.8-2.4) Total Bilirubin 0.7 mg/dL (0.2-1.0) Aspartate Amino Transf (AST/SGOT) 37 U/L (15-37) Alanine Aminotransferase (ALT/SGPT) 31 U/L (16-63) Alkaline Phosphatase 129 U/L (46-116) Creatine Kinase 120 U/L (39-308) Creatine Kinase MB (Mass) 1.2 ng/mL (0.0-3.6) Creatine Kinase MB Relative Index 1.0 % (0-4) Troponin I Quantitative 0.066 ng/mL (0.000-0.055) 0.128 ng/mL (0.000-0.055) 0.127 ng/mL (0.000-0.055) QJ-Dcp-O-Type Natriuretic Peptide 3078 pg/mL (0-449) Total Protein 7.4 g/dL (6.4-8.2) Albumin 3.1 g/dL (3.4-5.0) Albumin/Globulin Ratio 0.7 (1.0-1.7) Thyroid Stimulating Hormone (TSH) 1.505 uIU/mL (0.358-3.74) Urine Collection Type Unknown Urine Color Yellow Urine Clarity Clear Urine pH 5.0 (<5.0-8.0) Urine Specific [place] 1.020 (1.000-1.030) Urine Protein 100 mg/dL (NEG-TRACE) Urine Glucose (UA) Negative mg/dL (NEG) Urine Ketones (Stick) Negative mg/dL (NEG) Urine Blood Negative (NEG) Urine Nitrite Negative (NEG) Urine Bilirubin Negative (NEG) Urine Urobilinogen Dipstick 0.2 mg/dL (0.2 mg/dL) Urine Leukocyte Esterase Negative (NEG) Urine RBC 0 /HPF (0-2) Urine WBC 1-4 /HPF (0-4) Urine Squamous Epithelial Cells Few /LPF Urine Amorphous Sediment Present /HPF Urine Bacteria 0 /HPF (0-FEW) Urine Mucus Slight /LPF Test 05/18/21 03:15 05/18/21 07:16 White Blood Count 12.5 x10^3/uL (4.0-11.0) Red Blood Count 4.15 x10^6/uL (4.30-5.70) Hemoglobin 12.8 g/dL (13.0-17.5) Hematocrit 39.0 % (39.0-53.0) Mean Corpuscular Volume 94 fL (79-100) Mean Corpuscular Hemoglobin 31 pg (25-35) Mean Corpuscular Hemoglobin Concent 33 g/dL (31-37) Red Cell Distribution Width 14.1 % (11.5-14.5) Platelet Count 188 x10^3/uL (140-400) Neutrophils (%) (Auto) 83 % (31-73) Lymphocytes (%) (Auto) 5 % (24-48) Monocytes (%) (Auto) 11 % (0-9) Eosinophils (%) (Auto) 0 % (0-3) Basophils (%) (Auto) 1 % (0-3) Neutrophils # (Auto) 10.5 x10^3/uL (1.8-7.7) Lymphocytes # (Auto) 0.7 x10^3/uL (1.0-4.8) Monocytes # (Auto) 1.4 x10^3/uL (0.0-1.1) Eosinophils # (Auto) 0.0 x10^3/uL (0.0-0.7) Basophils # (Auto) 0.1 x10^3/uL (0.0-0.2) Sodium Level 144 mmol/L (136-145) Potassium Level 5.6 mmol/L (3.5-5.1) Chloride Level 109 mmol/L (98-107) Carbon Dioxide Level 24 mmol/L (21-32) Anion Gap 11 (6-14) Blood Urea Nitrogen 40 mg/dL (8-26) Creatinine 1.8 mg/dL (0.7-1.3) Estimated GFR (Cockcroft-Gault) 37.0 BUN/Creatinine Ratio 22 (6-20) Glucose Level 208 mg/dL (70-99) Calcium Level 9.1 mg/dL (8.5-10.1) Total Bilirubin 0.8 mg/dL (0.2-1.0) Aspartate Amino Transf (AST/SGOT) 32 U/L (15-37) Alanine Aminotransferase (ALT/SGPT) 32 U/L (16-63) Alkaline Phosphatase 125 U/L (46-116) Total Protein 7.2 g/dL (6.4-8.2) Albumin 3.0 g/dL (3.4-5.0) Albumin/Globulin Ratio 0.7 (1.0-1.7) Glucose (Fingerstick) 212 mg/dL (70-99) Laboratory Tests Test 05/17/21 18:10 05/17/21 22:14 05/17/21 22:43 05/18/21 00:30 White Blood Count 13.7 x10^3/uL (4.0-11.0) Red Blood Count 4.30 x10^6/uL (4.30-5.70) Hemoglobin 13.1 g/dL (13.0-17.5) Hematocrit 39.8 % (39.0-53.0) Mean Corpuscular Volume 93 fL (79-100) Mean Corpuscular Hemoglobin 31 pg (25-35) Mean Corpuscular Hemoglobin Concent 33 g/dL (31-37) Red Cell Distribution Width 14.1 % (11.5-14.5) Platelet Count 218 x10^3/uL (140-400) Neutrophils (%) (Auto) 89 % (31-73) Lymphocytes (%) (Auto) 2 % (24-48) Monocytes (%) (Auto) 8 % (0-9) Eosinophils (%) (Auto) 0 % (0-3) Basophils (%) (Auto) 0 % (0-3) Neutrophils # (Auto) 12.2 x10^3/uL (1.8-7.7) Lymphocytes # (Auto) 0.3 x10^3/uL (1.0-4.8) Monocytes # (Auto) 1.2 x10^3/uL (0.0-1.1) Eosinophils # (Auto) 0.0 x10^3/uL (0.0-0.7) Basophils # (Auto) 0.0 x10^3/uL (0.0-0.2) Segmented Neutrophils % 93 % (35-66) Lymphocytes % 2 % (24-48) Monocytes % 5 % (0-10) Toxic Granulation Slight Platelet Estimate Adequate (ADEQUATE) Sodium Level 142 mmol/L (136-145) Potassium Level 5.7 mmol/L (3.5-5.1) Chloride Level 109 mmol/L (98-107) Carbon Dioxide Level 22 mmol/L (21-32) Anion Gap 11 (6-14) Blood Urea Nitrogen 40 mg/dL (8-26) Creatinine 1.6 mg/dL (0.7-1.3) Estimated GFR (Cockcroft-Gault) 42.3 BUN/Creatinine Ratio 25 (6-20) Glucose Level 176 mg/dL (70-99) Lactic Acid Level 1.0 mmol/L (0.4-2.0) Calcium Level 9.2 mg/dL (8.5-10.1) Magnesium Level 2.1 mg/dL (1.8-2.4) Total Bilirubin 0.7 mg/dL (0.2-1.0) Aspartate Amino Transf (AST/SGOT) 37 U/L (15-37) Alanine Aminotransferase (ALT/SGPT) 31 U/L (16-63) Alkaline Phosphatase 129 U/L (46-116) Creatine Kinase 120 U/L (39-308) Creatine Kinase MB (Mass) 1.2 ng/mL (0.0-3.6) Creatine Kinase MB Relative Index 1.0 % (0-4) Troponin I Quantitative 0.066 ng/mL (0.000-0.055) 0.128 ng/mL (0.000-0.055) 0.127 ng/mL (0.000-0.055) EW-Wls-X-Type Natriuretic Peptide 3078 pg/mL (0-449) Total Protein 7.4 g/dL (6.4-8.2) Albumin 3.1 g/dL (3.4-5.0) Albumin/Globulin Ratio 0.7 (1.0-1.7) Thyroid Stimulating Hormone (TSH) 1.505 uIU/mL (0.358-3.74) Urine Collection Type Unknown Urine Color Yellow Urine Clarity Clear Urine pH 5.0 (<5.0-8.0) Urine Specific [place] 1.020 (1.000-1.030) Urine Protein 100 mg/dL (NEG-TRACE) Urine Glucose (UA) Negative mg/dL (NEG) Urine Ketones (Stick) Negative mg/dL (NEG) Urine Blood Negative (NEG) Urine Nitrite Negative (NEG) Urine Bilirubin Negative (NEG) Urine Urobilinogen Dipstick 0.2 mg/dL (0.2 mg/dL) Urine Leukocyte Esterase Negative (NEG) Urine RBC 0 /HPF (0-2) Urine WBC 1-4 /HPF (0-4) Urine Squamous Epithelial Cells Few /LPF Urine Amorphous Sediment Present /HPF Urine Bacteria 0 /HPF (0-FEW) Urine Mucus Slight /LPF Test 05/18/21 03:15 05/18/21 07:16 White Blood Count 12.5 x10^3/uL (4.0-11.0) Red Blood Count 4.15 x10^6/uL (4.30-5.70) Hemoglobin 12.8 g/dL (13.0-17.5) Hematocrit 39.0 % (39.0-53.0) Mean Corpuscular Volume 94 fL (79-100) Mean Corpuscular Hemoglobin 31 pg (25-35) Mean Corpuscular Hemoglobin Concent 33 g/dL (31-37) Red Cell Distribution Width 14.1 % (11.5-14.5) Platelet Count 188 x10^3/uL (140-400) Neutrophils (%) (Auto) 83 % (31-73) Lymphocytes (%) (Auto) 5 % (24-48) Monocytes (%) (Auto) 11 % (0-9) Eosinophils (%) (Auto) 0 % (0-3) Basophils (%) (Auto) 1 % (0-3) Neutrophils # (Auto) 10.5 x10^3/uL (1.8-7.7) Lymphocytes # (Auto) 0.7 x10^3/uL (1.0-4.8) Monocytes # (Auto) 1.4 x10^3/uL (0.0-1.1) Eosinophils # (Auto) 0.0 x10^3/uL (0.0-0.7) Basophils # (Auto) 0.1 x10^3/uL (0.0-0.2) Sodium Level 144 mmol/L (136-145) Potassium Level 5.6 mmol/L (3.5-5.1) Chloride Level 109 mmol/L (98-107) Carbon Dioxide Level 24 mmol/L (21-32) Anion Gap 11 (6-14) Blood Urea Nitrogen 40 mg/dL (8-26) Creatinine 1.8 mg/dL (0.7-1.3) Estimated GFR (Cockcroft-Gault) 37.0 BUN/Creatinine Ratio 22 (6-20) Glucose Level 208 mg/dL (70-99) Calcium Level 9.1 mg/dL (8.5-10.1) Total Bilirubin 0.8 mg/dL (0.2-1.0) Aspartate Amino Transf (AST/SGOT) 32 U/L (15-37) Alanine Aminotransferase (ALT/SGPT) 32 U/L (16-63) Alkaline Phosphatase 125 U/L (46-116) Total Protein 7.2 g/dL (6.4-8.2) Albumin 3.0 g/dL (3.4-5.0) Albumin/Globulin Ratio 0.7 (1.0-1.7) Glucose (Fingerstick) 212 mg/dL (70-99) Images Images WHAT IS THE PURPOSE OF AN ADVANCE DIRECTIVE? (ALSO KNOWN A LIVING WILL OR HEALTHCARE POWER OF SAP TRAINER) To articulate and document your wishes concerning medical treatment should you lose decision-making ability. To designate an individual, known as your healthcare agent or proxy, to ensure your wishes are honored should you no longer be able to speak for yourself. This includes, among other things, making decisions about when to withhold or withdraw life-sustaining treatment. WHERE CAN I FIND AN ADVANCE DIRECTIVE FORM? The National [facility] Organization has a list of advance directive forms for every state. We also recommend checking your state governments website for the most up-to-date forms. Find quick links to all state and territory government websites at [email or web address]. WHAT MUST I INCLUDE IN MY ADVANCE DIRECTIVE? The name and contact information of your healthcare agent/proxy. Answers to specific questions about your preferences for care if you become unable to speak for yourself. The forms and questions asked vary a bit from state to state. A sample question: Do you want to receive artificially provided nutrition or hydration when you are close to and/or permanently unconscious? Names and signatures of individuals who witness your signing your advance directive, if required. Not all states require witness signatures. The signature and seal of a public records officer, if required by your state. Not all states require advance directives to be notarized. [facility] has a list of all advance directive/living will requirements by state. WHAT ELSE WOULD BE GOOD TO INCLUDE IN MY ADVANCE DIRECTIVE? Detailed information about what procedures or types of care you would like to receive and what you wish to avoid at all costs that are not covered by the questions on the form. Would you want to take advantage of all life-support technologies if it would only postpone ? Would you want to use them if you were permanently unconscious? Would you want them if you were going through an advanced progressive illness? More general statements about your values regarding end-of-life care. What does a good mean and look like to you? For that matter, what defines a life worth living? Do you define life by the intake of breath and nutrients? Is it defined by consciousness? At what point do you want to prolong it and at what point do you want to preserve resources for other people? Personal desires for body disposition in essence, what you want to happen to your body when you and plans for any memorial service(s) A list of people who cannot make healthcare decisions for you. Leave no room for ambiguity, which could lead to tensions between loved ones about your care as you are dying. HOW SHOULD I GO ABOUT IDENTIFYING MY HEALTHCARE AGENT/PROXY? An ideal person for the job is someone who: Knows you well. A spouse/partner, a family member, a close friend: all are good candidates. Excels at making difficult decisions under pressure. Is diplomatic and empathetic critical traits for balancing the needs, wants, and unpredictable emotions of a patients loved ones. Isnt afraid to ask tough questions, which invariably arise when discussing a dying individuals end-of-life care. Is easily reachable by email, phone, and/or text. Is or can easily be within physical proximity of where youre likely to receive care. Once Mandi identified this person, how do I talk to them about what care I want and dont want at the end of life? Have multiple conversations with your healthcare agent about your wishes. Take them out to tea, have them over for dinner, go to a bar or library. Talk about what you want, and make sure you are heard and understood. If you see fit, and if your agent doesnt already know this information, you can share a bit about the personalities of the people who will be most invested in your health outcomes, and how best to handle these folks in situations when emotions will be running high. This can be a serious conversation or it can be full of laughs. You get to decide how the conversation plays out. WHAT IF MY HEALTHCARE AGENT/PROXY IS UNAVAILABLE TO EXECUTE THEIR DUTIES WHEN I AM DYING? It is important to appoint an alternative agent/proxy for exactly this reason. Identify and inform that person as you did your main agent/proxy, and list them as an alternate on your advance directive form. WHAT ABOUT THE TWO WITNESSES? ARE THERE ANY SPECIAL REQUIREMENTS FOR WHO CAN AND CANT SERVE IN THIS ROLE? In most states, witnesses cannot be: Your healthcare agent or proxy; Any of your care providers; Related to you by blood, adoption, or marriage; Entitled to any portion of your estate upon your . dpoa review> 20 min to portal LEFT VENTRICLE The left ventricle is normal size. There is normal left ventricular wall thickness. The left ventricular systolic function is normal. The Ejection Fraction is 60-65%. There is normal LV segmental wall motion. Transmitral Doppler flow pattern is Grade I-abnormal relaxation pattern. RIGHT VENTRICLE The right ventricle is normal size. The right ventricular systolic function is normal. ATRIA The left atrium size is normal. The right atrium size is normal. The interatrial septum is intact with no evidence for an atrial septal defect or patent foramen ovale as noted on 2-D or Doppler imaging. AORTIC VALVE The aortic valve is mildly thickened but opens well. Doppler and Color Flow revealed no significant aortic regurgitation. There is no significant aortic valvular stenosis. MITRAL VALVE The mitral valve is calcified but opens well. There is no evidence of mitral valve prolapse. There is no mitral valve stenosis. Doppler and Color Flow revealed no mitral valve regurgitation noted. TRICUSPID VALVE The tricuspid valve is normal in structure and function. Doppler and Color Flow revealed trace tricuspid regurgitation. The PA pressure was estimated at 30 mmHg. There is no tricuspid valve stenosis. PULMONIC VALVE The pulmonic valve is not well visualized. Doppler and Color Flow revealed trace pulmonic valvular regurgitation. There is no pulmonic valvular stenosis. GREAT VESSELS The aortic root is normal in size. The ascending aorta is not well seen. The IVC is normal in size and collapses >50% with inspiration. PERICARDIAL EFFUSION There is no evidence of significant pericardial effusion. Critical Notification Critical Value: No <Conclusion> The left ventricular systolic function is normal. The Ejection Fraction is 60-65%. There is normal LV segmental wall motion. Transmitral Doppler flow pattern is Grade I-abnormal relaxation pattern. Trace tricuspid regurgitation. The PA pressure was estimated at 30 mmHg. There is no evidence of significant pericardial effusion. Signed by : Gillian Romero, Electronically Approved : 11/20/2020 15:02:08 DICTATED and SIGNED BY: GILLIAN ROMERO MD DATE: 11/20/20 [id number] PQRS Compliance Statement: One or more of the following individualized dose reduction techniques were utilized for this examination: 1. Automated exposure control 2. Adjustment of the mA and/or kV according to patient size 3. Use of iterative reconstruction technique CT CHEST_ABDOMEN_ AND PELVIS WITHOUT CONTRAST Clinical Indication: Reason: FEVER, SEPSIS / Spl. Instructions: / History: Comparison: CT abdomen and pelvis with contrast April 29, 2011. Technique: Helical CT imaging of the chest, abdomen and pelvis is performed without IV or oral contrast. Findings: Evaluation of solid organs and bowel is limited without oral and IV contrast, decreasing sensitivity for detection of pathology. Ectasia of the ascending thoracic aorta, diameter is 4 cm. Coronary artery disease. Cardiac size upper limits of normal. No pericardial effusion. Central airways are patent. There is air and fluid in the upper esophagus. Resp iratory motion artifact limits evaluation of the lungs. There is bilateral lower lobe atelectasis and/or scarring. There is no pleural abnormality. Cholelithiasis. Severe atherosclerotic calcification of the abdominal aorta, no aneurysm. Small fat-containing supraumbilical hernia. Small fat-containing umbilical hernia. Liver, spleen, adrenal glands, and pancreas are normal. There is no right hydronephrosis. There is marked left hydroureteronephrosis. A point of transition is in the ureter at the pelvic brim. There is no focal abnormality such as a calculus. There was inflammatory process in this location with fluid collection on prior study and focal stricture cannot be excluded. The hydronephrosis appears long-standing as there is severe cortical thinning of the left kidney. There is no obvious abnormality of the stomach. There is no dilated small bowel. The appendix is normal. The rectum is mildly distended with stool. There is overall moderate colon stool volume. No colon wall thickening is identified. The urinary bladder is normal. The prostate is moderately enlarged. No pelvic free fluid is identified. Minimal induration in the right lower abdomen, nonspecific. Bilateral L5 spondylolysis. Chronic appearing compression fracture superior endplate of T12. Degenerative arthropathy of the hips. IMPRESSION: 1. Bilateral lower lobe atelectasis and/or scarring. 2. Air and fluid in the upper esophagus could be due to reflux. 3. Marked left hydroureteronephrosis. Please see above discussion. 4. Moderate colon stool volume. Correlate for constipation. 5. Prostate moderately enlarged. Electronically signed by: Nato Pham MD (03/07/2021 4:56 PM) [id number] DICTATED and SIGNED BY: NATO PHAM MD DATE: 03/07/21 [id number] EXAM: CHEST 1 VIEW History: Altered mental status COMPARISON: 03/26/2021 TECHNIQUE: Single portable radiograph of the chest FINDINGS: Mild cardiomegaly. Bibasilar lung airspace opacities. Mild prominent bilateral interstitial lung markings. IMPRESSION: Bibasilar lung airspace opacities likely atelectasis or infiltrates. Electronically signed by: Fidel Oliveira MD (05/17/2021 7:02 PM) [id number] DICTATED and SIGNED BY: FIDEL OLIVEIRA MDSTATUS: ADM INORD. PHYSICIAN: BRADLEY HENDRICKS MD REASON: RIGHT FOOT WOUND PROCEDURE: [id number] ANGIO ABDOMIN AORTOGRAM Procedure: Aortogram, right lower extremity arteriogram, angioplasty of the right popliteal artery, and angioplasty of the right common femoral artery. Clinical Indication: Adult male with clinical limb ischemia of the right foot manifested as nonhealing wound, status post transmetatarsal amputation. Sedation: Conscious sedation was administered with a total intraprocedural [id number]-[id number] time of 96 minutes. The patient was monitored by a qualified independent observer throughout the time of sedation. Please refer to the medical record for exact doses of medications utilized to achieve moderate sedation. Antibiotics: None Exposure: Kerma-Area Product: 227 Gycm2 Sterility: All elements of maximal sterile barrier technique including the use of a cap, mask, sterile gown, sterile gloves, large sterile sheet, appropriate hand hygiene, and 2% chlorhexidine for cutaneous antisepsis (or acceptable alternative antiseptic per current guidelines) were followed for this procedure. Consent: The procedure was explained in its entirety to the patient or the patients designated manufacturers representative by a member of the treatment team, including a discussion of the risks, benefits and commonly accepted alternatives to the procedure, as well as the expected consequences of no therapy whatsoever. Discussion of the risks included, but was not limited to, those that are most frequent and those that are rare but possibly severe or life-threatening, as well as the possibility of unforeseen complications. Technique and Findings: Following informed consent, the patient was prepped and draped in the usual sterile fashion. Ultrasound interrogation of the left groin was performed demonstrate patency of the left common femoral artery. A hardcopy ultrasound image was recorded as a 21-gauge micropuncture needle was used to gain access to this vessel. The needle was exchanged over wire for 5 Green[place]ic sheath. A flush catheter was advanced into the abdominal aorta and contrast aortography is performed. There is a high-grade stenosis of the single right renal artery. The ostium of the left renal artery is not well depicted. The aorta is patent with mild atherosclerosis. No aneurysm of the aorta. MARY is patent with high-grade ostial stenosis. Celiac and superior mesenteric arteries appear patent. There is moderate proximal common iliac artery atherosclerosis resulting in less than 30% stenosis of each vessel. Moderate ostial atherosclerosis of both internal iliac arteries. Wide patency of both external iliac arteries. Within the right common femoral artery, there is a dissection flap, resulting in greater than 50% narrowing of the true lumen. Left common femoral artery is widely patent. The catheter wire were then used to cross the aortic bifurcation, and the flush catheter was advanced to the right common femoral artery. Contrast angiography the right lower extremity is performed. The right profunda femoral and superficial femoral arteries are patent with mild multifocal atherosclerosis. There is a widely patent stent in the distal right SFA. In the popliteal artery, there is a short focal calcified stenosis resulting in greater than 50% luminal narrowing, and there is some adjacent hyperemia possibly due to early collateral formation. The tibioperoneal trunk is widely patent. The anterior tibial artery tapers to occlusion proximally. Runoff is primarily via a widely patent peroneal artery, which occludes above the ankle, but which provides innumerable well-developed collaterals to the entire lower leg and foot. There is no reconstitution of the dorsalis pedis artery. The posterior tibial artery is small but remains patent throughout, with mild multifocal atherosclerosis. There is direct in line flow to the posterior tibial artery of the foot. The patient was then given 5000 units of heparin intravenously. The popliteal artery stenosis was crossed, and a 5 Greenlandic sheath was exchanged for a long 6 Green[place]ic sheath. A 4 mm x 40 mm angioplasty balloon was then used and plastic popliteal artery. This was felt to be undersized. Consequently, a 5 mm x 40 mm drug coated balloon angioplasty was performed across the segment for 3 minutes. The balloon was removed and repeat angiography was performed demonstrating excellent angiographic appearance with minimal residual stenosis. A 7 mm x 60 mm drug coated balloon was then used to angioplasty the right common femoral artery dissection. Post angioplasty angiography demonstrated excellent angiographic appearance once again, with wide patency of the true lumen through the short segment, and no significant residual stenosis. Balloons and wires were then removed and the sheath was retracted to the left external iliac artery. Contrast angiography was performed to assess for suitability of a closure device. The sheath was then exchanged over wire for a star close device which failed to achieve hemostasis. Hemostasis was subsequently achieved with manual compression. Complications: No immediate Impression: 1. 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 This is significantly improved following drug coated balloon angioplasty. 2. Significant focal calcified right popliteal artery stenosis, also significantly improved following drug coated balloon angioplasty. 3. 2 patent runoff vessels, the peroneal and posterior tibial arteries. Posterior tibial artery is diminutive and dominant flow is via the peroneal artery which tapers to occlusion above the ankle but provides innumerable well-developed collaterals to the lower leg and foot, without reconstitution of the dorsalis pedis or anterior tibial artery. There is mild atherosclerosis in the posterior tibial distribution but no significant stenoses which were felt to confer a significant flow advantage with treatment. DICTATED and SIGNED BY: LOLA YIP MD DATE: 03/12/21 [id number] Signed [id number] : 1945 LOCATION: [address] [place] [address] AGE: 76 SEX: M EXAM STATUS: ADM IN ORD. PHYSICIAN: ELISABETH WHEATLEY APRN REASON: AMS- PROCEDURE: CT HEAD WO CONTRAST PQRS Compliance Statement: One or more of the following individualized dose reduction techniques were utilized for this examination: 1. Automated exposure control 2. Adjustment of the mA and/or kV according to patient size 3. Use of iterative reconstruction technique CT head without contrast 05/17/2021 11:29 PM INDICATION: Acute mental status COMPARISON: 03/26/2021 TECHNIQUE: Multiple axial CT images of the head were obtained from skull base through the vertex without intravenous contrast. FINDINGS: Head: Ventricles, sulci and basal cisterns are prominent compatible with mild general cerebral volume loss. There is no hydrocephalus. There is moderate territory subcortical and cortical based hypoattenuation involving the right frontal white matter involving the right frontal operculum, stable from prior examination compatible with remote ischemic changes. Small territory remote infarct involving the right temporal lobe and left occipital lobe. Findings are stable. No new areas of cerebral edema identified. Low-attenuation in the periventricular white matter is suggestive of chronic small vessel ischemic changes. There is no acute intracranial hemorrhage. There is no mass, mass effect or midline shift. Posterior fossa is normal in appearance. Visualized portions of the orbits are normal with exception of bilateral lens replacement. Paranasal sinuses are well aerated. Mastoid air cells are well aerated. Scalp and calvaria are normal. IMPRESSION: No acute intracranial hemorrhage. 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 Mild generalized cerebral volume loss. Low-attenuation in the periventricular white matter is suggestive of chronic small vessel ischemic changes. Electronically signed by: Korey Farley MD (05/17/2021 11:53 PM) [facility] DICTATED and SIGNED BY: KOREY FARLEY MD DATE: 05/17/21 [id number] VTE Prophylaxis Ordered VTE Prophylaxis Devices: No VTE Pharmacological Prophylaxi: Yes Assessment/Plan Assessment/Plan IMPRESSION: Acute metabolic encephalopathy No acute intracranial hemorrhage. 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
[2021-05-18] MEDS: INSULIN GLARGINE SYRINGE. SQ SCH ×2 (09:00→21:35)
[2021-05-18 10:57] VITALS: BP 99/40
[2021-05-18] MEDS ORDERED: PIP/TAZO PER PHARMACY MC PRN (11:15)
[2021-05-18] MEDS ORDERED: SODIUM POLYSTYRENE SULFON/SORB 15 GM/60 ML ORAL.SUSP. PO ONE (11:30)
[2021-05-18] MEDS: CLOPIDOGREL BISULFATE 75 MG TABLET PO SCH (11:58)
[2021-05-18] MEDS: POLYVINYL ALCOHOL 1.4% OPHTH SOLUTION 15ML BOTTLE. OU SCH ×4 (11:59→21:32)
[2021-05-18] MEDS: METOPROLOL SUCC 24HR ER 25 MG TAB.ER.24H. PO SCH (11:59)
[2021-05-18] MEDS: ASPIRIN ENTERIC COATED 81 MG TABLET.DR. PO SCH (11:59)
[2021-05-18] MEDS: SERTRALINE 50 MG TABLET. PO SCH (11:59)
[2021-05-18] MEDS ORDERED: DOCUSATE SODIUM 100 MG CAPSULE. PO PRN (12:00)
[2021-05-18] MEDS ORDERED: ACETAMINOPHEN 325 MG TABLET. PO PRN (12:00)
[2021-05-18] MEDS ORDERED: SODIUM PHOSPHATES 19/7GM 133 ML ENEMA. PR PRN (12:00)
[2021-05-18] MEDS ORDERED: ONDANSETRON PF 4 MG/2 ML VIAL. IV PRN (12:00)
[2021-05-18] MEDS ORDERED: guaiFENesin ORAL 200 MG/10 ML LIQUID. PO PRN (12:00)
[2021-05-18] MEDS ORDERED: ACETAMINOPHEN 650 MG SUPP.RECT. PR PRN (12:00)
[2021-05-18] MEDS: PIPERACILLIN/TAZOBACTAM 2.25 GM in IV NORMAL SALINE 50ML 50 ML IV SCH ×2 (12:00→17:29)
[2021-05-18] MEDS ORDERED: 0.9 % SODIUM CHLORIDE 10 ML DISP.SYRIN. IV PRN (12:00)
[2021-05-18] MEDS: INSULIN LISPRO 300 UNITS/3 ML VIAL. SQ SCH (12:01)
[2021-05-18] MEDS: IV NORMAL SALINE 1000ML BAG 1,000 ML IV SCH (12:08)
[2021-05-18] MEDS: ENOXAPARIN 40 MG/0.4 ML SYRINGE. SQ SCH (12:09)
[2021-05-18] MEDS: IPRATRPIUM/ALBUTEROL 0.5/2.5MG 3 ML NEBU. NEB SCH ×2 (14:00→22:12)
--- NOTE | 2021-05-18 14:42 | NUR ---
SS following for discharge planning. SS reviewed pt chart and discussed with pt RN. Pt is LT resident from [place], ; fax [phone]. Pt is currently on room air. Pt on IV Zosyn. PT/OT/ST ordered. Cardiology consulted. SS will continue to follow for discharge planning.
[2021-05-18 15:00] VITALS: BP 123/55
--- NOTE | 2021-05-18 15:04 | PDOC2 ---
CONSULT Date of Consult Date of Consult DATE: 05/18/21 TIME: 14:57 Reason for Consult Reason for Consult: Diastolic heart failure Referring Physician Referring Physician: Dr. Vargas Identification/Chief Complaint Chief Complaint Decreasing level of consciousness Source Source: Chart review, Patient History of Present Illness Reason for Visit: The patient is a 76-year-old resident of a nursing facility who was transferred to the emergency room for decreased mental status. Patient apparently at baseline is a poor historian but his level of consciousness had further deteriorated. Initial work-up through the emergency room included a head CT scan that showed no acute changes but did show stable multifocal remote infarcts. His EKG showed mild nonspecific ST-T wave changes. His chest x-ray showed bibasilar airspace opacities. Patient's lab was significant for potassium of 5.7, creatinine of 1.6, glucose of 176, peak troponin of 0.128 and an elevated BNP at 3078. Patient had a cardiac catheterization on 11/20/2020 with an ejection fraction of 60 to 65%, trace tricuspid regurgitation and a pulmonary artery pressure of 30 mmHg. At the present time he is resting reasonably comfortably. He still is slow to respond to questions. He appears to be in no acute distress. Past Medical History Cardiovascular: CAD, CHF, HTN, Hyperlipidemia, Other (Peripheral vascular disease. Lower extremity her angiogram on 03/12/2021 showed a right common femoral lesion which was improved status post balloon angioplasty. ) Pulmonary: Bronchitis CENTRAL NERVOUS SYSTEM: CVA, Periperal neuropathy GI: Constipation Heme/Onc: Anemia NOS Psych: Anxiety, Addictions Musculoskeletal: Osteoarthritis Renal/: Chronic renal insuff, Benign prostatic enlarg. Endocrine: Diabetes, Hypothyroidism Past Surgical History Past Surgical History: Cataract Removal, Tonsillectomy, Other (Left BKA, right amputation of several toes.) Family History Family History: Diabetes, High Cholestrol, Hypertension Social History No ALCOHOL: none Drugs: None Current Problem List Problem List Problems Medical Problems: (1) Altered mental status Status: Acute Current Medications Current Medications Current Medications Ondansetron HCl (Zofran) 4 mg PRN Q8HRS PRN IV NAUSEA/VOMITING; Start 05/17/21 at 20:45; Stop 05/18/21 at 20:44 Morphine Sulfate (Morphine Sulfate) 2 mg PRN Q2HR PRN IV PAIN; Start 05/17/21 at 20:45; Stop 05/18/21 at 20:44 Acetaminophen (Tylenol) 650 mg PRN Q4HRS PRN PO FEVER > 100.3'F; Start 05/17/21 at 20:45; Stop 05/18/21 at 20:44 Lorazepam (Ativan Inj) 1 mg 1X ONCE IVP ; Start 05/17/21 at 21:30; Stop at 21:31; Status DC Aspirin (Ecotrin) 81 mg DAILYWBKFT PO Last administered on 05/18/21at 11:59; Start 05/18/21 at 08:00 Atorvastatin Calcium (Lipitor) 40 mg HS PO ; Start 05/18/21 at 21:00 Clopidogrel Bisulfate (Plavix) 75 mg DAILYWBKFT PO Last administered on 05/18/21at 11:58; Start 05/18/21 at 08:00 Docusate Sodium (Colace) 100 mg PRN DAILY PRN PO HARD STOOLS; Start 05/17/21 at 23:15; Status Cancel Levothyroxine Sodium (Synthroid) 50 mcg DAILY06 PO Last administered on 05/18/21at 06:01; Start 05/18/21 at 06:00 Metoprolol Succinate (Toprol Xl) 25 mg DAILY PO Last administered on 05/18/21 11:59; Start 05/18/21 at 09:00 Glycerin/ Hypromellose/ Polyethylene (Artificial Tears) 1 drop QID OU Last administered on 05/18/21at 11:59; Start 05/18/21 at 09:00 Insulin Human Lispro (HumaLOG) 5 units DAILYWLUN SQ Last administered on 05/18/21at 12:01; Start 05/18/21 at 12:00 Insulin Glargine (Lantus Syringe) 15 unit BID SQ ; Start 05/18/21 at 09:00 Sennosides (Senna) 8.6 mg PRN BID PRN PO CONSTIPATION 1ST CHOICE; Start 05/17/21 at 23:30 Sertraline HCl (Zoloft) 125 mg DAILY PO Last administered on 05/18/21at 11:59; Start 05/18/21 at 09:00 Furosemide (Lasix) 20 mg 1X ONCE IVP Last administered on 05/18/21at 00:36; Start 05/17/21 at 23:45; Stop 05/17/21 at 23:46; Status DC Piperacillin Sod/ Tazobactam Sod (Zosyn Per Pharmacy) 1 each PRN DAILY PRN MC SEE COMMENTS; Start 05/18/21 at 11:15 Piperacillin Sod/ Tazobactam Sod 2.25 gm/Sodium Chloride 50 ml @ 100 mls/hr Q6HRS IV Last administered on 05/18/21at 12:00; Start 05/18/21 at 12:00 Sodium Polystyrene Sulfonate (Kayexalate) 15 gm 1X ONCE PO Last administered on 05/18/21at 12:00; Start 05/18/21 at 11:30; Stop 05/18/21 at 11:31; Status DC Sodium Chloride (Normal Saline Flush) 3 ml QSHIFT PRN IV AFTER MEDS AND BLOOD DRAWS; Start 05/18/21 at 12:00 Sodium Chloride 1,000 ml @ 65 mls/hr [id number] IV Last administered on 05/18/21at 12:08; Start 05/18/21 at 12:00 Ondansetron HCl (Zofran) 4 mg PRN Q4HRS PRN IV NAUSEA/VOMITING; Start 05/18/21 at 12:00 Acetaminophen (Tylenol) 650 mg PRN Q4HRS PRN PO TEMP OVER 100.4F OR MILD PAIN; Start 05/18/21 at 12:00 Acetaminophen (Tylenol Supp) 650 mg PRN Q4HRS PRN NM TEMP OVER 100.4F OR MILD PAIN; Start 05/18/21 at 12:00 Sodium Monofluorophosphate (Fleet Adult) 133 ml PRN DAILY PRN NM CONSTIPATION; Start 05/18/21 at 12:00 Docusate Sodium (Colace) 100 mg PRN BID PRN PO HARD STOOLS; Start 05/18/21 at 12:00 Albuterol/ Ipratropium (Duoneb) 3 ml Q4HRS W/A NEB ; Start 05/18/21 at 14:00 Guaifenesin (Robitussin) 200 mg PRN Q4HRS PRN PO COUGH; Start 05/18/21 at 12:00 Enoxaparin Sodium (Lovenox 40mg Syringe) 40 mg Q24H SQ Last administered on 05/18/21at 12:09; Start 05/18/21 at 12:00 Active Scripts Active Culturelle (Lactobacillus Rhamnosus Gg) 1 Each Cap.sprink 1 Cap PO BID 30 Days Dok (Docusate Sodium) 100 Mg Capsule 100 Mg PO PRN DAILY PRN 30 Days Acetaminophen 325 Mg Tablet 650 Mg PO PRN Q4HRS PRN 30 Days Furosemide 40 Mg Tablet 1 Tab PO PRN DAILY PRN 30 Days Clopidogrel (Clopidogrel Bisulfate) 75 Mg Tablet 75 Mg PO DAILYWBKFT 30 Days Aspirin Ec (Aspirin) 81 Mg Tablet.dr 81 Mg PO DAILYWBKFT 30 Days Reported Lisinopril 20 Mg Tablet 20 Mg PO DAILY Zoloft (Sertraline Hcl) 100 Mg Tablet 125 Mg PO DAILY Polytrim Eye Drops (Polymyxin B Sulf/Trimethoprim) 10 Ml Drops 1 Drop LEFTEYE BID Novolog (Insulin Aspart) 100 Unit/1 Ml Cartridge 5 Unit SQ DAILYWLUN Refresh Optive Eye Drops (Carboxymethylcellulos/Glycerin) 15 Ml Drops 1 Drop LEFTEYE QID Senna (Sennosides) 8.8 Mg/5 Ml Syrup 8.8 Mg PO PRN Q12HR PRN Melatonin 3 Mg Tablet 2 Tab PO QHS Levemir (Insulin Detemir) 100 Unit/1 Ml Vial 15 Unit SQ BID [erythromycin oint] OS BID Potassium Chloride (Potassium Chloride) 20 Meq Tablet.er 20 Meq PO DAILY Metoprolol Succinate ( Xl ) (Metoprolol Succinate) 25 Mg Tab.er.24h 25 Mg PO DAILY Lipitor (Atorvastatin Calcium) 40 Mg Tablet 40 Mg PO HS Synthroid (Levothyroxine Sodium) 50 Mcg Tablet 50 Mcg PO DAILYAC Allergies Allergies: Coded Allergies: No Known Medication Allergies (Verified Allergy, Unknown, 03/12/21) ROS Review of System The patient is not able to give a clear review of symptoms. Physical Exam General: No acute distress HEENT: Atraumatic Lungs: Other (Mildly decreased breath sounds) Heart: Regular rate Abdomen: Normal bowel sounds Vitals VITALS Vital Signs Date Time Temp Pulse Resp B/P (MAP) Pulse Ox O2 Delivery O2 Flow Rate FiO2 05/18/21 11:59 74 145/68 05/18/21 10:57 98.0 20 95 Room Air 98.0 Labs Labs Laboratory Tests Test 05/17/21 18:10 05/17/21 22:14 05/17/21 22:43 05/18/21 00:30 White Blood Count 13.7 x10^3/uL (4.0-11.0) Red Blood Count 4.30 x10^6/uL (4.30-5.70) Hemoglobin 13.1 g/dL (13.0-17.5) Hematocrit 39.8 % (39.0-53.0) Mean Corpuscular Volume 93 fL (79-100) Mean Corpuscular Hemoglobin 31 pg (25-35) Mean Corpuscular Hemoglobin Concent 33 g/dL (31-37) Red Cell Distribution Width 14.1 % (11.5-14.5) Platelet Count 218 x10^3/uL (140-400) Neutrophils (%) (Auto) 89 % (31-73) Lymphocytes (%) (Auto) 2 % (24-48) Monocytes (%) (Auto) 8 % (0-9) Eosinophils (%) (Auto) 0 % (0-3) Basophils (%) (Auto) 0 % (0-3) Neutrophils # (Auto) 12.2 x10^3/uL (1.8-7.7) Lymphocytes # (Auto) 0.3 x10^3/uL (1.0-4.8) Monocytes # (Auto) 1.2 x10^3/uL (0.0-1.1) Eosinophils # (Auto) 0.0 x10^3/uL (0.0-0.7) Basophils # (Auto) 0.0 x10^3/uL (0.0-0.2) Segmented Neutrophils % 93 % (35-66) Lymphocytes % 2 % (24-48) Monocytes % 5 % (0-10) Toxic Granulation Slight Platelet Estimate Adequate (ADEQUATE) Sodium Level 142 mmol/L (136-145) Potassium Level 5.7 mmol/L (3.5-5.1) Chloride Level 109 mmol/L (98-107) Carbon Dioxide Level 22 mmol/L (21-32) Anion Gap 11 (6-14) Blood Urea Nitrogen 40 mg/dL (8-26) Creatinine 1.6 mg/dL (0.7-1.3) Estimated GFR (Cockcroft-Gault) 42.3 BUN/Creatinine Ratio 25 (6-20) Glucose Level 176 mg/dL (70-99) Lactic Acid Level 1.0 mmol/L (0.4-2.0) Calcium Level 9.2 mg/dL (8.5-10.1) Magnesium Level 2.1 mg/dL (1.8-2.4) Total Bilirubin 0.7 mg/dL (0.2-1.0) Aspartate Amino Transf (AST/SGOT) 37 U/L (15-37) Alanine Aminotransferase (ALT/SGPT) 31 U/L (16-63) Alkaline Phosphatase 129 U/L (46-116) Creatine Kinase 120 U/L (39-308) Creatine Kinase MB (Mass) 1.2 ng/mL (0.0-3.6) Creatine Kinase MB Relative Index 1.0 % (0-4) Troponin I Quantitative 0.066 ng/mL (0.000-0.055) 0.128 ng/mL (0.000-0.055) 0.127 ng/mL (0.000-0.055) DV-Dya-E-Type Natriuretic Peptide 3078 pg/mL (0-449) Total Protein 7.4 g/dL (6.4-8.2) Albumin 3.1 g/dL (3.4-5.0) Albumin/Globulin Ratio 0.7 (1.0-1.7) Thyroid Stimulating Hormone (TSH) 1.505 uIU/mL (0.358-3.74) Urine Collection Type Unknown Urine Color Yellow Urine Clarity Clear Urine pH 5.0 (<5.0-8.0) Urine Specific [place] 1.020 (1.000-1.030) Urine Protein 100 mg/dL (NEG-TRACE) Urine Glucose (UA) Negative mg/dL (NEG) Urine Ketones (Stick) Negative mg/dL (NEG) Urine Blood Negative (NEG) Urine Nitrite Negative (NEG) Urine Bilirubin Negative (NEG) Urine Urobilinogen Dipstick 0.2 mg/dL (0.2 mg/dL) Urine Leukocyte Esterase Negative (NEG) Urine RBC 0 /HPF (0-2) Urine WBC 1-4 /HPF (0-4) Urine Squamous Epithelial Cells Few /LPF Urine Amorphous Sediment Present /HPF Urine Bacteria 0 /HPF (0-FEW) Urine Mucus Slight /LPF Test 05/18/21 03:15 05/18/21 07:16 05/18/21 11:26 White Blood Count 12.5 x10^3/uL (4.0-11.0) Red Blood Count 4.15 x10^6/uL (4.30-5.70) Hemoglobin 12.8 g/dL (13.0-17.5) Hematocrit 39.0 % (39.0-53.0) Mean Corpuscular Volume 94 fL (79-100) Mean Corpuscular Hemoglobin 31 pg (25-35) Mean Corpuscular Hemoglobin Concent 33 g/dL (31-37) Red Cell Distribution Width 14.1 % (11.5-14.5) Platelet Count 188 x10^3/uL (140-400) Neutrophils (%) (Auto) 83 % (31-73) Lymphocytes (%) (Auto) 5 % (24-48) Monocytes (%) (Auto) 11 % (0-9) Eosinophils (%) (Auto) 0 % (0-3) Basophils (%) (Auto) 1 % (0-3) Neutrophils # (Auto) 10.5 x10^3/uL (1.8-7.7) Lymphocytes # (Auto) 0.7 x10^3/uL (1.0-4.8) Monocytes # (Auto) 1.4 x10^3/uL (0.0-1.1) Eosinophils # (Auto) 0.0 x10^3/uL (0.0-0.7) Basophils # (Auto) 0.1 x10^3/uL (0.0-0.2) Sodium Level 144 mmol/L (136-145) Potassium Level 5.6 mmol/L (3.5-5.1) Chloride Level 109 mmol/L (98-107) Carbon Dioxide Level 24 mmol/L (21-32) Anion Gap 11 (6-14) Blood Urea Nitrogen 40 mg/dL (8-26) Creatinine 1.8 mg/dL (0.7-1.3) Estimated GFR (Cockcroft-Gault) 37.0 BUN/Creatinine Ratio 22 (6-20) Glucose Level 208 mg/dL (70-99) Calcium Level 9.1 mg/dL (8.5-10.1) Total Bilirubin 0.8 mg/dL (0.2-1.0) Aspartate Amino Transf (AST/SGOT) 32 U/L (15-37) Alanine Aminotransferase (ALT/SGPT) 32 U/L (16-63) Alkaline Phosphatase 125 U/L (46-116) C-Reactive Protein, Quantitative 136.4 mg/L (0-3.3) Total Protein 7.2 g/dL (6.4-8.2) Albumin 3.0 g/dL (3.4-5.0) Albumin/Globulin Ratio 0.7 (1.0-1.7) Procalcitonin 0.46 ng/mL (0.00-0.10) Glucose (Fingerstick) 212 mg/dL (70-99) 332 mg/dL (70-99) Laboratory Tests Test 05/17/21 18:10 05/17/21 22:14 05/17/21 22:43 05/18/21 00:30 White Blood Count 13.7 x10^3/uL (4.0-11.0) Red Blood Count 4.30 x10^6/uL (4.30-5.70) Hemoglobin 13.1 g/dL (13.0-17.5) Hematocrit 39.8 % (39.0-53.0) Mean Corpuscular Volume 93 fL (79-100) Mean Corpuscular Hemoglobin 31 pg (25-35) Mean Corpuscular Hemoglobin Concent 33 g/dL (31-37) Red Cell Distribution Width 14.1 % (11.5-14.5) Platelet Count 218 x10^3/uL (140-400) Neutrophils (%) (Auto) 89 % (31-73) Lymphocytes (%) (Auto) 2 % (24-48) Monocytes (%) (Auto) 8 % (0-9) Eosinophils (%) (Auto) 0 % (0-3) Basophils (%) (Auto) 0 % (0-3) Neutrophils # (Auto) 12.2 x10^3/uL (1.8-7.7) Lymphocytes # (Auto) 0.3 x10^3/uL (1.0-4.8) Monocytes # (Auto) 1.2 x10^3/uL (0.0-1.1) Eosinophils # (Auto) 0.0 x10^3/uL (0.0-0.7) Basophils # (Auto) 0.0 x10^3/uL (0.0-0.2) Segmented Neutrophils % 93 % (35-66) Lymphocytes % 2 % (24-48) Monocytes % 5 % (0-10) Toxic Granulation Slight Platelet Estimate Adequate (ADEQUATE) Sodium Level 142 mmol/L (136-145) Potassium Level 5.7 mmol/L (3.5-5.1) Chloride Level 109 mmol/L (98-107) Carbon Dioxide Level 22 mmol/L (21-32) Anion Gap 11 (6-14) Blood Urea Nitrogen 40 mg/dL (8-26) Creatinine 1.6 mg/dL (0.7-1.3) Estimated GFR (Cockcroft-Gault) 42.3 BUN/Creatinine Ratio 25 (6-20) Glucose Level 176 mg/dL (70-99) Lactic Acid Level 1.0 mmol/L (0.4-2.0) Calcium Level 9.2 mg/dL (8.5-10.1) Magnesium Level 2.1 mg/dL (1.8-2.4) Total Bilirubin 0.7 mg/dL (0.2-1.0) Aspartate Amino Transf (AST/SGOT) 37 U/L (15-37) Alanine Aminotransferase (ALT/SGPT) 31 U/L (16-63) Alkaline Phosphatase 129 U/L (46-116) Creatine Kinase 120 U/L (39-308) Creatine Kinase MB (Mass) 1.2 ng/mL (0.0-3.6) Creatine Kinase MB Relative Index 1.0 % (0-4) Troponin I Quantitative 0.066 ng/mL (0.000-0.055) 0.128 ng/mL (0.000-0.055) 0.127 ng/mL (0.000-0.055) CG-Nfn-Q-Type Natriuretic Peptide 3078 pg/mL (0-449) Total Protein 7.4 g/dL (6.4-8.2) Albumin 3.1 g/dL (3.4-5.0) Albumin/Globulin Ratio 0.7 (1.0-1.7) Thyroid Stimulating Hormone (TSH) 1.505 uIU/mL (0.358-3.74) Urine Collection Type Unknown Urine Color Yellow Urine Clarity Clear Urine pH 5.0 (<5.0-8.0) Urine Specific [place] 1.020 (1.000-1.030) Urine Protein 100 mg/dL (NEG-TRACE) Urine Glucose (UA) Negative mg/dL (NEG) Urine Ketones (Stick) Negative mg/dL (NEG) Urine Blood Negative (NEG) Urine Nitrite Negative (NEG) Urine Bilirubin Negative (NEG) Urine Urobilinogen Dipstick 0.2 mg/dL (0.2 mg/dL) Urine Leukocyte Esterase Negative (NEG) Urine RBC 0 /HPF (0-2) Urine WBC 1-4 /HPF (0-4) Urine Squamous Epithelial Cells Few /LPF Urine Amorphous Sediment Present /HPF Urine Bacteria 0 /HPF (0-FEW) Urine Mucus Slight /LPF Test 05/18/21 03:15 05/18/21 07:16 05/18/21 11:26 White Blood Count 12.5 x10^3/uL (4.0-11.0) Red Blood Count 4.15 x10^6/uL (4.30-5.70) Hemoglobin 12.8 g/dL (13.0-17.5) Hematocrit 39.0 % (39.0-53.0) Mean Corpuscular Volume 94 fL (79-100) Mean Corpuscular Hemoglobin 31 pg (25-35) Mean Corpuscular Hemoglobin Concent 33 g/dL (31-37) Red Cell Distribution Width 14.1 % (11.5-14.5) Platelet Count 188 x10^3/uL (140-400) Neutrophils (%) (Auto) 83 % (31-73) Lymphocytes (%) (Auto) 5 % (24-48) Monocytes (%) (Auto) 11 % (0-9) Eosinophils (%) (Auto) 0 % (0-3) Basophils (%) (Auto) 1 % (0-3) Neutrophils # (Auto) 10.5 x10^3/uL (1.8-7.7) Lymphocytes # (Auto) 0.7 x10^3/uL (1.0-4.8) Monocytes # (Auto) 1.4 x10^3/uL (0.0-1.1) Eosinophils # (Auto) 0.0 x10^3/uL (0.0-0.7) Basophils # (Auto) 0.1 x10^3/uL (0.0-0.2) Sodium Level 144 mmol/L (136-145) Potassium Level 5.6 mmol/L (3.5-5.1) Chloride Level 109 mmol/L (98-107) Carbon Dioxide Level 24 mmol/L (21-32) Anion Gap 11 (6-14) Blood Urea Nitrogen 40 mg/dL (8-26) Creatinine 1.8 mg/dL (0.7-1.3) Estimated GFR (Cockcroft-Gault) 37.0 BUN/Creatinine Ratio 22 (6-20) Glucose Level 208 mg/dL (70-99) Calcium Level 9.1 mg/dL (8.5-10.1) Total Bilirubin 0.8 mg/dL (0.2-1.0) Aspartate Amino Transf (AST/SGOT) 32 U/L (15-37) Alanine Aminotransferase (ALT/SGPT) 32 U/L (16-63) Alkaline Phosphatase 125 U/L (46-116) C-Reactive Protein, Quantitative 136.4 mg/L (0-3.3) Total Protein 7.2 g/dL (6.4-8.2) Albumin 3.0 g/dL (3.4-5.0) Albumin/Globulin Ratio 0.7 (1.0-1.7) Procalcitonin 0.46 ng/mL (0.00-0.10) Glucose (Fingerstick) 212 mg/dL (70-99) 332 mg/dL (70-99) Images Images Imaging as above. Assessment/Plan Assessment/Plan 1. Decreased level of consciousness. CT head scan shows no acute changes but does show old infarcts. Lab work as above is significant for mild elevation in potassium as well as glucose. The patient is in no acute distress at this time. He does have a history of a CVA and dementia. Would continuing monitoring and present treatment. 2. Chronic kidney disease. Creatinine of 1.6. Potassium elevated at 5.7. Being treated. 3. Diastolic heart failure. Echo as outlined above showed normal LV function in November of this year. BNP elevated at 3078. We will continue present treatment with monitoring of lab. 4. Hypertension. Initially significantly elevated. Now improved. Continue present medications and monitoring. 5. Peripheral vascular disease. Status post left BKA. Status post balloon angioplasty of the right common femoral artery. Has been followed by the vascular surgery service. SANCHEZ SERNA MD May 18, 2021 15:04
--- NOTE | 2021-05-18 15:45 | NUR ---
Wound Care Wound Type/Assessment: patient seen per wound care consult. see wound assessment. patient has a stage 3 pressure ulcer to the scrotum, the area was cleaned, measured, pictured and recommendations of barrier cream applied at this time. patient also has a Right plantar DFU the wound has redness on the right foot and up the right lower leg, the wound was cleaned, measured and pictured and redressed with recommendations of a foam dressing at this time. Patient also has a right forearm IV infiltration, per [facility], this area was assessed and pictured at this time. Treatment Recommendations/Plan: Recommendations for the right plantar DFU-cleanse the wound then apply a foam dressing, change every 2-3 days. recommendations for the scrotum wound, cleanse the area and apply Calazime cream, as needed. Offloading surface/device: Wedge and pillows Recommended Referrals/Tests: Recommendations of an x-ray to the right foot- Notified [facility]. Discharge Recommendations for dressings: Notified [facility] about the POC and wound care will continue to f/u for changes.
[2021-05-18 19:25] VITALS: BP 145/53
[2021-05-18] MEDS: ATORVASTATIN CALCIUM 40 MG TABLET. PO SCH (21:31)
[2021-05-18 23:10] VITALS: BP 165/60
[2021-05-19] MEDS: PIPERACILLIN/TAZOBACTAM 2.25 GM in IV NORMAL SALINE 50ML 50 ML IV SCH ×2 (01:06→05:38)
[2021-05-19 03:45] VITALS: BP 140/68
[2021-05-19] MEDS: LEVOTHYROXINE 50 MCG TABLET PO SCH (05:55)
[2021-05-19] MEDS: IV NORMAL SALINE 1000ML BAG 1,000 ML IV SCH ×2 (05:56→20:50)
[2021-05-19 07:00] VITALS: BP 153/66
[2021-05-19 07:33] LABS: BASO % 0 % (0-3); EOS % 0 % (0-3); HEMATOCRIT 35.3 % (39.0-53.0); HEMOGLOBIN 11.7 g/dL (13.0-17.5); LYMPH # 0.4 x10^3/uL (1.0-4.8); LYMPH % 4 % (24-48); MEAN CORPUSCULAR HEMOGLOBIN 31 pg (25-35); MEAN CORPUSCULAR HGB CONC 33 g/dL (31-37); MEAN CORPUSCULAR VOLUME 92 fL (79-100); MONO # 1.2 x10^3/uL (0.0-1.1); MONO % 11 % (0-9); NEUT # 9.3 x10^3/uL (1.8-7.7); NEUT % 85 % (31-73); PLATELET COUNT 176 x10^3/uL (140-400); RED BLOOD COUNT 3.83 x10^6/uL (4.30-5.70); RED CELL DISTRIBUTION WIDTH 14.1 % (11.5-14.5)
[2021-05-19 07:42] LABS: CALCIUM 8.1 mg/dL (8.5-10.1); GFR 32.7; POTASSIUM 3.7 mmol/L (3.5-5.1)
[2021-05-19] MEDS: IPRATRPIUM/ALBUTEROL 0.5/2.5MG 3 ML NEBU. NEB SCH ×5 (07:49→22:00)
[2021-05-19] MEDS: CLOPIDOGREL BISULFATE 75 MG TABLET PO SCH (08:48)
[2021-05-19] MEDS: ASPIRIN ENTERIC COATED 81 MG TABLET.DR. PO SCH (08:48)
[2021-05-19] MEDS: METOPROLOL SUCC 24HR ER 25 MG TAB.ER.24H. PO SCH (08:48)
[2021-05-19] MEDS: INSULIN GLARGINE SYRINGE. SQ SCH ×2 (08:49→20:51)
[2021-05-19] MEDS: POLYVINYL ALCOHOL 1.4% OPHTH SOLUTION 15ML BOTTLE. OU SCH ×4 (08:49→20:51)
[2021-05-19] MEDS: SERTRALINE 50 MG TABLET. PO SCH (08:49)
--- NOTE | 2021-05-19 09:45 | PDOC ---
PROGRESS NOTES Date of Service: DATE: 05/19/21 TIME: 09:44 Chief Complaint Chief Complaint VTE Prophylaxis Ordered VTE Prophylaxis Devices: No VTE Pharmacological Prophylaxi: Yes Assessment/Plan Assessment/Plan IMPRESSION: Acute metabolic encephalopathy No acute intracranial hemorrhage. Stable multifocal remote infarcts involving the right frontal lobe, right te mporal lobe and left occipital lobe. 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 Right LE vascular compromise Marked left hydroureteronephrosis-Chronic with ureteral stricture Possible sundowning plan admit blood cultures emperic iv antibiotics, zosyn, renal dosing Nephrology consult cvc bed Cardiology consulted wound care nurse consulted mandeep qid CRP PROCALCITONIN Trend troponin i anticipate LOS > 3 DAYS 38 min pt exam, chart review, > 50% of time spent with exam, chart review, pt care coordination History of Present Illness History of Present Illness Identification/Chief Complaint Chief Complaint altered mentation, leukocytosis, hx wounds History of Present Illness History of Present Illness presented to ER from a custodial for altered mental status. Patient is alert but NOT oriented to self BUT poor historian. 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 Findings are stable WBC 13.7 . WITH LEFT SHIFT, blood culture done x 1 in ER 76-year-old male with history of left BKA in 2019 He has a history of a right TMA He has a very small right foot wound on the plantar surface overlying his fifth metatarsal head minimal erythema // right TMA He has been treated for several other medical issues, including acute infectious encephalopathy, HCAP, ABA, anemia. He is a poor historian, history obtaining is difficult. hx RECENT percutaneous arterial intervention on the left leg, The patient was unable to give me accurate history. Wound care consulted, NEPHROLOGY CONSULTED PO KAYEXYLATE 15 GM X 1 pending, Cardiology consulted. emperic iv zosyn dosed renally hx Right DFU with underlying peripheral artery disease, status post recent angiogram with balloon angioplasty MARCH 2021 Past Medical History Past Medical History Past Medical History Past Medical History: Anemia, CHF, CVA, Dementia, Diabetes-Type II, High Cholesterol, Hypertension, Hypothyroid, Renal Disease, Other Additional Past Medical Histor: CKD,OCD,BPH,PVD Past Surgical History: Other Additional Past Surgical Histo: RIGHT TOES, LEFT BKA Smoking Status: Unknown if ever smoked Alcohol Use: None FHX HTN Cardiovascular: CAD, CHF, HTN, Hyperlipidemia, Other Pulmonary: Bronchitis CENTRAL NERVOUS SYSTEM: CVA, Periperal neuropathy GI: Constipation Heme/Onc: Anemia NOS Psych: Anxiety, Addictions Musculoskeletal: Osteoarthritis Renal/: Chronic renal insuff, Benign prostatic enlarg. Endocrine: Diabetes, Hypothyroidism Past Surgical History Past Surgical History: Cataract Removal, Tonsillectomy, Other Family History Family History: Diabetes, High Cholestrol, Hypertension Social History Smoke: No ALCOHOL: none Drugs: None Current Problem List Problem List Problems Medical Problems: (1) Altered mental status Status: Acute Current Medications Current Medications Current Medications Ondansetron HCl (Zofran) 4 mg PRN Q8HRS PRN IV NAUSEA/VOMITING; Start 05/17/21 at 20:45; Stop 05/18/21 at 20:44 Morphine Sulfate (Morphine Sulfate) 2 mg PRN Q2HR PRN IV PAIN; Start 05/17/21 at 20:45; Stop 05/18/21 at 20:44 Acetaminophen (Tylenol) 650 mg PRN Q4HRS PRN PO FEVER > 100.3'F; Start 05/17/21 at 20:45; Stop 05/18/21 at 20:44 Lorazepam (Ativan Inj) 1 mg 1X ONCE IVP ; Start 05/17/21 at 21:30; Stop 05/17/21 at 21:31; Status DC Aspirin (Ecotrin) 81 mg DAILYWBKFT PO ; Start 05/18/21 at 08:00 Atorvastatin Calcium (Lipitor) 40 mg HS PO ; Start 05/18/21 at 21:00 Clopidogrel Bisulfate (Plavix) 75 mg DAILYWBKFT PO ; Start 05/18/21 at 08:00 Docusate Sodium (Colace) 100 mg PRN DAILY PRN PO HARD STOOLS; Start 05/17/21 at 23:15 Levothyroxine Sodium (Synthroid) 50 mcg DAILY06 PO Last administered on 05/18/21at 06:01; Start 05/18/21 at 06:00 Metoprolol Succinate (Toprol Xl) 25 mg DAILY PO ; Start 05/18/21 at 09:00 Glycerin/ Hypromellose/ Polyethylene (Artificial Tears) 1 drop QID OU ; Start 05/18/21 at 09:00 Insulin Human Lispro (HumaLOG) 5 units DAILYWLUN SQ ; Start 05/18/21 at 12:00 Insulin Glargine (Lantus Syringe) 15 unit BID SQ ; Start 05/18/21 at 09:00 Sennosides (Senna) 8.6 mg PRN BID PRN PO CONSTIPATION 1ST CHOICE; Start 05/17/21 at 23:30 Sertraline HCl (Zoloft) 125 mg DAILY PO ; Start 05/18/21 at 09:00 Furosemide (Lasix) 20 mg 1X ONCE IVP Last administered on 05/18/21at 00:36; Start 05/17/21 at 23:45; Stop 05/17/21 at 23:46; Status DC Active Scripts Active Culturelle (Lactobacillus Rhamnosus Gg) 1 Each Cap.sprink 1 Cap PO BID 30 Days Dok (Docusate Sodium) 100 Mg Capsule 100 Mg PO PRN DAILY PRN 30 Days Acetaminophen 325 Mg Tablet 650 Mg PO PRN Q4HRS PRN 30 Days Furosemide 40 Mg Tablet 1 Tab PO PRN DAILY PRN 30 Days Clopidogrel (Clopidogrel Bisulfate) 75 Mg Tablet 75 Mg PO DAILYWBKFT 30 Days Aspirin Ec (Aspirin) 81 Mg Tablet.dr 81 Mg PO DAILYWBKFT 30 Days Reported Lisinopril 20 Mg Tablet 20 Mg PO DAILY Zoloft (Sertraline Hcl) 100 Mg Tablet 125 Mg PO DAILY Polytrim Eye Drops (Polymyxin B Sulf/Trimethoprim) 10 Ml Drops 1 Drop LEFTEYE BID Novolog (Insulin Aspart) 100 Unit/1 Ml Cartridge 5 Unit SQ DAILYWLUN Refresh Optive Eye Drops (Carboxymethylcellulos/Glycerin) 15 Ml Drops 1 Drop LEFTEYE QID Senna (Sennosides) 8.8 Mg/5 Ml Syrup 8.8 Mg PO PRN Q12HR PRN Melatonin 3 Mg Tablet 2 Tab PO QHS Levemir (Insulin Detemir) 100 Unit/1 Ml Vial 15 Unit SQ BID [erythromycin oint] OS BID Potassium Chloride (Potassium Chloride) 20 Meq Tablet.er 20 Meq PO DAILY Metoprolol Succinate ( Xl ) (Metoprolol Succinate) 25 Mg Tab.er.24h 25 Mg PO DAILY Lipitor (Atorvastatin Calcium) 40 Mg Tablet 40 Mg PO HS Synthroid (Levothyroxine Sodium) 50 Mcg Tablet 50 Mcg PO DAILYAC Allergies Allergies: Coded Allergies: No Known Medication Allergies (Verified Allergy, Unknown, 03/12/21) ROS Review of System poor appetite General: YES: Fatigue, Malaise, Appetite; No: Chills, Night Sweats, Other PSYCHOLOGICAL ROS: YES: Memory difficulties Eyes: Yes Decreased vision; No Blurry vision, No Double vision, No Dry eyes, No Excessive tearing, No Eye Pain, No Itchy Eyes, No Loss of vision, No Photophobia, No Scotomata, No Uses contacts, No Uses glasses, No Other HEENT: No: Heacaches, Visual Changes, Hearing change, Nasal congestion, Nasal discharge, Oral lesions, Sinus pain, Sore Throat, Epistaxis, Sneezing, Snoring, Tinnitus, Vertigo, Vocal changes, Other ALLERGY AND IMMUNOLOGY: No: Hives, Insect Bite Sensitivity, Itchy/Watery Eyes, Nasal Congestion, Post Nasal Drip, Seasonal Allergies, Other Hematological and Lymphatic: No: Bleeding Problems, Blood Clots, Blood Transfusions, Brusing, Night Sweats, Pallor, Swollen Lymph Nodes, Other Respiratory: No: Cough, Hemoptysis, Orthopnea, Pleuritic Pain, Shortness of breath, SOB with excertion, Sputum Changes, Stridor, Tachypnea, Wheezing, Other Musculoskeletal: Yes Joint Stiffness Neurological: Yes Gait Disturbance Skin: Yes Dry Skin, Yes Skin Lesion Changes 7-17 Acute metabolic encephalopathy No acute intracranial hemorrhage. 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 Right LE vascular compromise Marked left hydroureteronephrosis-Chronic with ureteral stricture Possible sundowning admit blood cultures emperic iv antibiotics, zosyn, renal dosing Nephrology consult cvc bed Cardiology consulted wound care nurse consulted mandeep qid CRP PROCALCITONIN Trend troponin i DC Zosyn IV empiric cefepime and Flagyl Continue linezolid Change Alvares if not done already Right foot x-ray anticipate LOS > 3 DAYS 28 min pt exam, chart review, > 50% of time spent with exam, chart review, pt care coordination Vitals Vitals Vital Signs Date Time Temp Pulse Resp B/P (MAP) Pulse Ox O2 Delivery O2 Flow Rate FiO2 05/19/21 08:48 84 140/68 05/19/21 08:00 Nasal Cannula 2.0 05/19/21 07:49 97 05/19/21 07:00 98.1 20 98.1 Physical Exam Physical Exam Physical Exam Physical Exam Constitutional: Well developed, well nourished, no acute distress, non-toxic appearance. [] HENT: Normocephalic, atraumatic, bilateral external ears normal, oropharynx moist, no oral exudates, nose normal. [] Eyes: PERRLA, EOMI, conjunctiva normal, no discharge. [] Neck: Normal range of motion, no tenderness, supple, no stridor. [] Cardiovascular:Heart rate regular rhythm Lungs & Thorax: Bilateral breath sounds clear to auscultation [] Abdomen: Bowel sounds normal, soft, no tenderness, no masses, no pulsatile masses. [] Skin: Warm, dry, no erythema, . [] He has a very small right foot wound on the plantar surface overlying his fifth metatarsal head minimal erythema TMA Back: No tenderness, no CVA tenderness. [] Extremities: Bilateral below the knee amputations, range of motion limited due to amputations Neurologic: confused , normal sensory function, no focal deficits noted. [] Psychologic: Flat affect General: Alert, Cooperative, No acute distress Lungs: Clear to auscultation Heart: RRR Breasts: Not examined Abdomen: Normal bowel sounds, Soft Rectal Exam: not examined PELVIC: Examination not indicated Extremities: No cyanosis Neuro: Cranial nerves 3-12 NL Psych/Mental Status: Mood NL, Other (CONFUSED TO DETAILS) General: Cooperative, No acute distress Heart: Regular rate Lungs: Clear Abdomen: Normal bowel sounds, No tenderness Extremities: No cyanosis Labs LABS Laboratory Tests Test 05/18/21 11:26 05/18/21 16:44 05/18/21 20:47 05/19/21 06:55 Glucose (Fingerstick) 332 mg/dL (70-99) 191 mg/dL (70-99) 356 mg/dL (70-99) White Blood Count 11.0 x10^3/uL (4.0-11.0) Red Blood Count 3.83 x10^6/uL (4.30-5.70) Hemoglobin 11.7 g/dL (13.0-17.5) Hematocrit 35.3 % (39.0-53.0) Mean Corpuscular Volume 92 fL (79-100) Mean Corpuscular Hemoglobin 31 pg (25-35) Mean Corpuscular Hemoglobin Concent 33 g/dL (31-37) Red Cell Distribution Width 14.1 % (11.5-14.5) Platelet Count 176 x10^3/uL (140-400) Neutrophils (%) (Auto) 85 % (31-73) Lymphocytes (%) (Auto) 4 % (24-48) Monocytes (%) (Auto) 11 % (0-9) Eosinophils (%) (Auto) 0 % (0-3) Basophils (%) (Auto) 0 % (0-3) Neutrophils # (Auto) 9.3 x10^3/uL (1.8-7.7) Lymphocytes # (Auto) 0.4 x10^3/uL (1.0-4.8) Monocytes # (Auto) 1.2 x10^3/uL (0.0-1.1) Eosinophils # (Auto) 0.0 x10^3/uL (0.0-0.7) Basophils # (Auto) 0.0 x10^3/uL (0.0-0.2) Sodium Level 141 mmol/L (136-145) Potassium Level 3.7 mmol/L (3.5-5.1) Chloride Level 107 mmol/L (98-107) Carbon Dioxide Level 24 mmol/L (21-32) Anion Gap 10 (6-14) Blood Urea Nitrogen 46 mg/dL (8-26) Creatinine 2.0 mg/dL (0.7-1.3) Estimated GFR (Cockcroft-Gault) 32.7 Glucose Level 211 mg/dL (70-99) Calcium Level 8.1 mg/dL (8.5-10.1) Test 05/19/21 07:35 Glucose (Fingerstick) 192 mg/dL (70-99) Assessment and Plan Assessmemt and Plan Problems Medical Problems: (1) Altered mental status Status: Acute Comment Review of Relevant I have reviewed the following items magalie (where applicable) has been applied. Labs Laboratory Tests Test 05/17/21 18:10 05/17/21 22:14 05/17/21 22:43 05/18/21 00:30 White Blood Count 13.7 x10^3/uL (4.0-11.0) Red Blood Count 4.30 x10^6/uL (4.30-5.70) Hemoglobin 13.1 g/dL (13.0-17.5) Hematocrit 39.8 % (39.0-53.0) Mean Corpuscular Volume 93 fL (79-100) Mean Corpuscular Hemoglobin 31 pg (25-35) Mean Corpuscular Hemoglobin Concent 33 g/dL (31-37) Red Cell Distribution Width 14.1 % (11.5-14.5) Platelet Count 218 x10^3/uL (140-400) Neutrophils (%) (Auto) 89 % (31-73) Lymphocytes (%) (Auto) 2 % (24-48) Monocytes (%) (Auto) 8 % (0-9) Eosinophils (%) (Auto) 0 % (0-3) Basophils (%) (Auto) 0 % (0-3) Neutrophils # (Auto) 12.2 x10^3/uL (1.8-7.7) Lymphocytes # (Auto) 0.3 x10^3/uL (1.0-4.8) Monocytes # (Auto) 1.2 x10^3/uL (0.0-1.1) Eosinophils # (Auto) 0.0 x10^3/uL (0.0-0.7) Basophils # (Auto) 0.0 x10^3/uL (0.0-0.2) Segmented Neutrophils % 93 % (35-66) Lymphocytes % 2 % (24-48) Monocytes % 5 % (0-10) Toxic Granulation Slight Platelet Estimate Adequate (ADEQUATE) Sodium Level 142 mmol/L (136-145) Potassium Level 5.7 mmol/L (3.5-5.1) Chloride Level 109 mmol/L (98-107) Carbon Dioxide Level 22 mmol/L (21-32) Anion Gap 11 (6-14) Blood Urea Nitrogen 40 mg/dL (8-26) Creatinine 1.6 mg/dL (0.7-1.3) Estimated GFR (Cockcroft-Gault) 42.3 BUN/Creatinine Ratio 25 (6-20) Glucose Level 176 mg/dL (70-99) Lactic Acid Level 1.0 mmol/L (0.4-2.0) Calcium Level 9.2 mg/dL (8.5-10.1) Magnesium Level 2.1 mg/dL (1.8-2.4) Total Bilirubin 0.7 mg/dL (0.2-1.0) Aspartate Amino Transf (AST/SGOT) 37 U/L (15-37) Alanine Aminotransferase (ALT/SGPT) 31 U/L (16-63) Alkaline Phosphatase 129 U/L (46-116) Creatine Kinase 120 U/L (39-308) Creatine Kinase MB (Mass) 1.2 ng/mL (0.0-3.6) Creatine Kinase MB Relative Index 1.0 % (0-4) Troponin I Quantitative 0.066 ng/mL (0.000-0.055) 0.128 ng/mL (0.000-0.055) 0.127 ng/mL (0.000-0.055) AW-Rft-F-Type Natriuretic Peptide 3078 pg/mL (0-449) Total Protein 7.4 g/dL (6.4-8.2) Albumin 3.1 g/dL (3.4-5.0) Albumin/Globulin Ratio 0.7 (1.0-1.7) Thyroid Stimulating Hormone (TSH) 1.505 uIU/mL (0.358-3.74) Urine Collection Type Unknown Urine Color Yellow Urine Clarity Clear Urine pH 5.0 (<5.0-8.0) Urine Specific Watson 1.020 (1.000-1.030) Urine Protein 100 mg/dL (NEG-TRACE) Urine Glucose (UA) Negative mg/dL (NEG) Urine Ketones (Stick) Negative mg/dL (NEG) Urine Blood Negative (NEG) Urine Nitrite Negative (NEG) Urine Bilirubin Negative (NEG) Urine Urobilinogen Dipstick 0.2 mg/dL (0.2 mg/dL) Urine Leukocyte Esterase Negative (NEG) Urine RBC 0 /HPF (0-2) Urine WBC 1-4 /HPF (0-4) Urine Squamous Epithelial Cells Few /LPF Urine Amorphous Sediment Present /HPF Urine Bacteria 0 /HPF (0-FEW) Urine Mucus Slight /LPF Test 05/18/21 03:15 05/18/21 07:16 05/18/21 11:26 05/18/21 16:44 White Blood Count 12.5 x10^3/uL (4.0-11.0) Red Blood Count 4.15 x10^6/uL (4.30-5.70) Hemoglobin 12.8 g/dL (13.0-17.5) Hematocrit 39.0 % (39.0-53.0) Mean Corpuscular Volume 94 fL (79-100) Mean Corpuscular Hemoglobin 31 pg (25-35) Mean Corpuscular Hemoglobin Concent 33 g/dL (31-37) Red Cell Distribution Width 14.1 % (11.5-14.5) Platelet Count 188 x10^3/uL (140-400) Neutrophils (%) (Auto) 83 % (31-73) Lymphocytes (%) (Auto) 5 % (24-48) Monocytes (%) (Auto) 11 % (0-9) Eosinophils (%) (Auto) 0 % (0-3) Basophils (%) (Auto) 1 % (0-3) Neutrophils # (Auto) 10.5 x10^3/uL (1.8-7.7) Lymphocytes # (Auto) 0.7 x10^3/uL (1.0-4.8) Monocytes # (Auto) 1.4 x10^3/uL (0.0-1.1) Eosinophils # (Auto) 0.0 x10^3/uL (0.0-0.7) Basophils # (Auto) 0.1 x10^3/uL (0.0-0.2) Sodium Level 144 mmol/L (136-145) Potassium Level 5.6 mmol/L (3.5-5.1) Chloride Level 109 mmol/L (98-107) Carbon Dioxide Level 24 mmol/L (21-32) Anion Gap 11 (6-14) Blood Urea Nitrogen 40 mg/dL (8-26) Creatinine 1.8 mg/dL (0.7-1.3) Estimated GFR (Cockcroft-Gault) 37.0 BUN/Creatinine Ratio 22 (6-20) Glucose Level 208 mg/dL (70-99) Calcium Level 9.1 mg/dL (8.5-10.1) Total Bilirubin 0.8 mg/dL (0.2-1.0) Aspartate Amino Transf (AST/SGOT) 32 U/L (15-37) Alanine Aminotransferase (ALT/SGPT) 32 U/L (16-63) Alkaline Phosphatase 125 U/L (46-116) C-Reactive Protein, Quantitative 136.4 mg/L (0-3.3) Total Protein 7.2 g/dL (6.4-8.2) Albumin 3.0 g/dL (3.4-5.0) Albumin/Globulin Ratio 0.7 (1.0-1.7) Procalcitonin 0.46 ng/mL (0.00-0.10) Glucose (Fingerstick) 212 mg/dL (70-99) 332 mg/dL (70-99) 191 mg/dL (70-99) Test 05/18/21 20:47 05/19/21 06:55 05/19/21 07:35 Glucose (Fingerstick) 356 mg/dL (70-99) 192 mg/dL (70-99) White Blood Count 11.0 x10^3/uL (4.0-11.0) Red Blood Count 3.83 x10^6/uL (4.30-5.70) Hemoglobin 11.7 g/dL (13.0-17.5) Hematocrit 35.3 % (39.0-53.0) Mean Corpuscular Volume 92 fL (79-100) Mean Corpuscular Hemoglobin 31 pg (25-35) Mean Corpuscular Hemoglobin Concent 33 g/dL (31-37) Red Cell Distribution Width 14.1 % (11.5-14.5) Platelet Count 176 x10^3/uL (140-400) Neutrophils (%) (Auto) 85 % (31-73) Lymphocytes (%) (Auto) 4 % (24-48) Monocytes (%) (Auto) 11 % (0-9) Eosinophils (%) (Auto) 0 % (0-3) Basophils (%) (Auto) 0 % (0-3) Neutrophils # (Auto) 9.3 x10^3/uL (1.8-7.7) Lymphocytes # (Auto) 0.4 x10^3/uL (1.0-4.8) Monocytes # (Auto) 1.2 x10^3/uL (0.0-1.1) Eosinophils # (Auto) 0.0 x10^3/uL (0.0-0.7) Basophils # (Auto) 0.0 x10^3/uL (0.0-0.2) Sodium Level 141 mmol/L (136-145) Potassium Level 3.7 mmol/L (3.5-5.1) Chloride Level 107 mmol/L (98-107) Carbon Dioxide Level 24 mmol/L (21-32) Anion Gap 10 (6-14) Blood Urea Nitrogen 46 mg/dL (8-26) Creatinine 2.0 mg/dL (0.7-1.3) Estimated GFR (Cockcroft-Gault) 32.7 Glucose Level 211 mg/dL (70-99) Calcium Level 8.1 mg/dL (8.5-10.1) Laboratory Tests Test 05/18/21 11:26 05/18/21 16:44 05/18/21 20:47 05/19/21 06:55 Glucose (Fingerstick) 332 mg/dL (70-99) 191 mg/dL (70-99) 356 mg/dL (70-99) White Blood Count 11.0 x10^3/uL (4.0-11.0) Red Blood Count 3.83 x10^6/uL (4.30-5.70) Hemoglobin 11.7 g/dL (13.0-17.5) Hematocrit 35.3 % (39.0-53.0) Mean Corpuscular Volume 92 fL (79-100) Mean Corpuscular Hemoglobin 31 pg (25-35) Mean Corpuscular Hemoglobin Concent 33 g/dL (31-37) Red Cell Distribution Width 14.1 % (11.5-14.5) Platelet Count 176 x10^3/uL (140-400) Neutrophils (%) (Auto) 85 % (31-73) Lymphocytes (%) (Auto) 4 % (24-48) Monocytes (%) (Auto) 11 % (0-9) Eosinophils (%) (Auto) 0 % (0-3) Basophils (%) (Auto) 0 % (0-3) Neutrophils # (Auto) 9.3 x10^3/uL (1.8-7.7) Lymphocytes # (Auto) 0.4 x10^3/uL (1.0-4.8) Monocytes # (Auto) 1.2 x10^3/uL (0.0-1.1) Eosinophils # (Auto) 0.0 x10^3/uL (0.0-0.7) Basophils # (Auto) 0.0 x10^3/uL (0.0-0.2) Sodium Level 141 mmol/L (136-145) Potassium Level 3.7 mmol/L (3.5-5.1) Chloride Level 107 mmol/L (98-107) Carbon Dioxide Level 24 mmol/L (21-32) Anion Gap 10 (6-14) Blood Urea Nitrogen 46 mg/dL (8-26) Creatinine 2.0 mg/dL (0.7-1.3) Estimated GFR (Cockcroft-Gault) 32.7 Glucose Level 211 mg/dL (70-99) Calcium Level 8.1 mg/dL (8.5-10.1) Test 05/19/21 07:35 Glucose (Fingerstick) 192 mg/dL (70-99) Microbiology 05/18/21 Blood Culture - Preliminary, Resulted NO GROWTH AFTER 1 DAY Medications Current Medications Ondansetron HCl (Zofran) 4 mg PRN Q8HRS PRN IV NAUSEA/VOMITING; Start 05/17/21 at 20:45; Stop 05/18/21 at 20:44; Status DC Morphine Sulfate (Morphine Sulfate) 2 mg PRN Q2HR PRN IV PAIN; Start 05/17/21 at 20:45; Stop 05/18/21 at 20:44; Status DC Acetaminophen (Tylenol) 650 mg PRN Q4HRS PRN PO FEVER > 100.3'F; Start 05/17/21 at 20:45; Stop 05/18/21 at 20:44; Status DC Lorazepam (Ativan Inj) 1 mg 1X ONCE IVP ; Start 05/17/21 at 21:30; Stop 05/17/21 at 21:31; Status DC Aspirin (Ecotrin) 81 mg DAILYWBKFT PO Last administered on 05/19/21at 08:48; Start 05/18/21 at 08:00 Atorvastatin Calcium (Lipitor) 40 mg HS PO Last administered on 05/18/21at 21:31; Start 05/18/21 at 21:00 Clopidogrel Bisulfate (Plavix) 75 mg DAILYWBKFT PO Last administered on 05/19/21at 08:48; Start 05/18/21 at 08:00 Docusate Sodium (Colace) 100 mg PRN DAILY PRN PO HARD STOOLS; Start 05/17/21 at 23:15; Status Cancel Levothyroxine Sodium (Synthroid) 50 mcg DAILY06 PO Last administered on 05/19/21at 05:55; Start 05/18/21 at 06:00 Metoprolol Succinate (Toprol Xl) 25 mg DAILY PO Last administered on 05/19/21at 08:48; Start 05/18/21 at 09:00 Glycerin/ Hypromellose/ Polyethylene (Artificial Tears) 1 drop QID OU Last administered on 05/19/21at 08:49; Start 05/18/21 at 09:00 Insulin Human Lispro (HumaLOG) 5 units DAILYWLUN SQ Last administered on 05/18/21at 12:01; Start 05/18/21 at 12:00 Insulin Glargine (Lantus Syringe) 15 unit BID SQ Last administered on 05/19/21at 08:49; Start 05/18/21 at 09:00 Sennosides (Senna) 8.6 mg PRN BID PRN PO CONSTIPATION 1ST CHOICE; Start 05/03 03/23 at 23:30 Sertraline HCl (Zoloft) 125 mg DAILY PO Last administered on 05/19/21at 08:49; Start 05/18/21 at 09:00 Furosemide (Lasix) 20 mg 1X ONCE IVP Last administered on 05/18/21at 00:36; Start 05/17/21 at 23:45; Stop 05/17/21 at 23:46; Status DC Piperacillin Sod/ Tazobactam Sod (Zosyn Per Pharmacy) 1 each PRN DAILY PRN MC SEE COMMENTS; Start 05/18/21 at 11:15 Piperacillin Sod/ Tazobactam Sod 2.25 gm/Sodium Chloride 50 ml @ 100 mls/hr Q6HRS IV Last administered on 05/19/21at 05:38; Start 05/18/21 at 12:00 Sodium Polystyrene Sulfonate (Kayexalate) 15 gm 1X ONCE PO Last administered on 05/18/21at 12:00; Start 05/18/21 at 11:30; Stop 05/18/21 at 11:31; Status DC Sodium Chloride (Normal Saline Flush) 3 ml QSHIFT PRN IV AFTER MEDS AND BLOOD DRAWS; Start 05/18/21 at 12:00 Sodium Chloride 1,000 ml @ 65 mls/hr [id number] IV Last administered on 05/19/21at 05:56; Start 05/18/21 at 12:00 Ondansetron HCl (Zofran) 4 mg PRN Q4HRS PRN IV NAUSEA/VOMITING; Start 05/18/21 at 12:00 Acetaminophen (Tylenol) 650 mg PRN Q4HRS PRN PO TEMP OVER 100.4F OR MILD PAIN; Start 05/18/21 at 12:00 Acetaminophen (Tylenol Supp) 650 mg PRN Q4HRS PRN [place] TEMP OVER 100.4F OR MILD PAIN; Start 05/18/21 at 12:00 Sodium Monofluorophosphate (Fleet Adult) 133 ml PRN DAILY PRN [place] CONSTIPATION; Start 05/18/21 at 12:00 Docusate Sodium (Colace) 100 mg PRN BID PRN PO HARD STOOLS; Start 05/18/21 at 12:00 Albuterol/ Ipratropium (Duoneb) 3 ml Q4HRS W/A NEB Last administered on 05/19/21at 07:49; Start 05/18/21 at 14:00 Guaifenesin (Robitussin) 200 mg PRN Q4HRS PRN PO COUGH; Start 05/18/21 at 12:00 Enoxaparin Sodium (Lovenox 40mg Syringe) 40 mg Q24H SQ Last administered on 05/18/21at 12:09; Start 05/18/21 at 12:00 Active Scripts Active Culturelle (Lactobacillus Rhamnosus Gg) 1 Each Cap.sprink 1 Cap PO BID 30 Days Dok (Docusate Sodium) 100 Mg Capsule 100 Mg PO PRN DAILY PRN 30 Days Acetaminophen 325 Mg Tablet 650 Mg PO PRN Q4HRS PRN 30 Days Furosemide 40 Mg Tablet 1 Tab PO PRN DAILY PRN 30 Days Clopidogrel (Clopidogrel Bisulfate) 75 Mg Tablet 75 Mg PO DAILYWBKFT 30 Days Aspirin Ec (Aspirin) 81 Mg Tablet.dr 81 Mg PO DAILYWBKFT 30 Days Reported Lisinopril 20 Mg Tablet 20 Mg PO DAILY Zoloft (Sertraline Hcl) 100 Mg Tablet 125 Mg PO DAILY Polytrim Eye Drops (Polymyxin B Sulf/Trimethoprim) 10 Ml Drops 1 Drop LEFTEYE BID Novolog (Insulin Aspart) 100 Unit/1 Ml Cartridge 5 Unit SQ DAILYWLUN Refresh Optive Eye Drops (Carboxymethylcellulos/Glycerin) 15 Ml Drops 1 Drop LEFTEYE QID Senna (Sennosides) 8.8 Mg/5 Ml Syrup 8.8 Mg PO PRN Q12HR PRN Melatonin 3 Mg Tablet 2 Tab PO QHS Levemir (Insulin Detemir) 100 Unit/1 Ml Vial 15 Unit SQ BID [erythromycin oint] OS BID Potassium Chloride (Potassium Chloride) 20 Meq Tablet.er 20 Meq PO DAILY Metoprolol Succinate ( Xl ) (Metoprolol Succinate) 25 Mg Tab.er.24h 25 Mg PO DAILY Lipitor (Atorvastatin Calcium) 40 Mg Tablet 40 Mg PO HS Synthroid (Levothyroxine Sodium) 50 Mcg Tablet 50 Mcg PO DAILYAC Vitals/I & O Vital Sign - Last 24 Hours 05/18/21 05/18/21 05/18/21 05/18/21 10:57 11:59 15:00 15:53 Temp 98.0 97.5 98.0 97.5 Pulse 82 74 77 Resp 20 18 B/P (MAP) 99/40 (59) 145/68 123/55 (77) Pulse Ox 95 92 95 O2 Delivery Room Air Room Air Room Air 05/18/21 05/18/21 05/18/21 05/18/21 19:25 19:47 22:12 23:10 Temp 100.8 99.9 100.8 99.9 Pulse 90 83 Resp 19 20 B/P (MAP) 145/53 (83) 165/60 (95) Pulse Ox 94 97 95 O2 Delivery Room Air Room Air Room Air Room Air 05/19/21 05/19/21 05/19/21 05/19/21 03:45 07:00 07:49 08:00 Temp 97.7 98.1 97.7 98.1 Pulse 84 85 Resp 20 20 B/P (MAP) 140/68 (92) 153/66 (95) Pulse Ox 94 94 97 O2 Delivery Room Air Nasal Cannula Nasal Cannula Nasal Cannula O2 Flow Rate 2.0 2.0 2.0 05/19/21 08:48 Pulse 84 B/P (MAP) 140/68 Intake and Output 05/18/21 05/18/21 05/19/21 15:00 23:00 07:00 Intake Total 580 ml 530 ml 1100 ml Output Total 600 ml 400 ml Balance 580 ml -70 ml 700 ml Justicifation of Admission Dx: Justifications for Admission: Justification of Admission Dx: Yes SUSAN COSTA MD May 19, 2021 09:45
--- NOTE | 2021-05-19 10:41 | PDOC2 ---
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 Patient is unable to give history. He is arousable but information is limited as patient is poor historian. Patient's white count was 13.7. Lactic acid was normal. Creatinine was 1.6. Patient was started on Zosyn and linezolid. Blood cultures were done which are negative so far. Patient has small wound on the plantar aspect of the fifth metatarsal head near the previous TMA with mild erythema going up the right lower extremity. Wound care consulted, cultures are nonrevealing so far. UA was negative. ID consult has been requested for antibiotic management. Past Medical History Past Medical History Past Medical History: Anemia, CHF, CVA, Dementia, Diabetes-Type II, High Cholesterol, Hypertension, Hypothyroid, Renal Disease, Other Additional Past Medical Histor: CKD,OCD,BPH,PVD Past Surgical History: Other Additional Past Surgical Histo: RIGHT TOES, LEFT BKA Smoking Status: Unknown if ever smoked Alcohol Use: None Cardiovascular: CAD, CHF, HTN, Hyperlipidemia, Other (Peripheral vascular disease. Lower extremity her angiogram on 03/12/2021 showed a right common femoral lesion which was improved status post balloon angioplasty. ) Pulmonary: Bronchitis CENTRAL NERVOUS SYSTEM: CVA, Periperal neuropathy GI: Constipation Heme/Onc: Anemia NOS Psych: Anxiety, Addictions Musculoskeletal: Osteoarthritis Renal/: Chronic renal insuff, Benign prostatic enlarg. Endocrine: Diabetes, Hypothyroidism Past Surgical History Past Surgical History Past Surgical History: Cataract Removal, Tonsillectomy, Other Past Surgical History: Cataract Removal, Tonsillectomy, Other (Left BKA, right amputation of several toes.) Family History Family History Diabetes, High Cholestrol, Hypertension Family History: Diabetes, High Cholestrol, Hypertension Social History Social History Smoke: No ALCOHOL: none Drugs: None No ALCOHOL: none Drugs: None Current Problem List Problem List Problems Medical Problems: (1) Altered mental status Status: Acute Current Medications Current Medications Current Medications Ondansetron HCl (Zofran) 4 mg PRN Q8HRS PRN IV NAUSEA/VOMITING; Start 05/17/21 at 20:45; Stop 05/18/21 at 20:44; Status DC Morphine Sulfate (Morphine Sulfate) 2 mg PRN Q2HR PRN IV PAIN; Start 05/17/21 at 20:45; Stop 05/18/21 at 20:44; Status DC Acetaminophen (Tylenol) 650 mg PRN Q4HRS PRN PO FEVER > 100.3'F; Start 05/17/21 at 20:45; Stop 05/18/21 at 20:44; Status DC Lorazepam (Ativan Inj) 1 mg 1X ONCE IVP ; Start 05/17/21 at 21:30; Stop 05/17/21 at 21:31; Status DC Aspirin (Ecotrin) 81 mg DAILYWBKFT PO Last administered on 05/19/21at 08:48; Start 05/18/21 at 08:00 Atorvastatin Calcium (Lipitor) 40 mg HS PO Last administered on 05/18/21at 21:31; Start 05/18/21 at 21:00 Clopidogrel Bisulfate (Plavix) 75 mg DAILYWBKFT PO Last administered on 05/19/21at 08:48; Start 05/18/21 at 08:00 Docusate Sodium (Colace) 100 mg PRN DAILY PRN PO HARD STOOLS; Start 05/17/21 at 23:15; Status Cancel Levothyroxine Sodium (Synthroid) 50 mcg DAILY06 PO Last administered on 05/19/21 at 05:55; Start 05/18/21 at 06:00 Metoprolol Succinate (Toprol Xl) 25 mg DAILY PO Last administered on 05/19/21at 08:48; Start 05/18/21 at 09:00 Glycerin/ Hypromellose/ Polyethylene (Artificial Tears) 1 drop QID OU Last administered on 05/19/21at 08:49; Start 05/18/21 at 09:00 Insulin Human Lispro (HumaLOG) 5 units DAILYWLUN SQ Last administered on 05/18/21at 12:01; Start 05/18/21 at 12:00 Insulin Glargine (Lantus Syringe) 15 unit BID SQ Last administered on 05/19/21at 08:49; Start 05/18/21 at 09:00 Sennosides (Senna) 8.6 mg PRN BID PRN PO CONSTIPATION 1ST CHOICE; Start 05/17/21 at 23:30 Sertraline HCl (Zoloft) 125 mg DAILY PO Last administered on 05/19/21at 08:49; Start 05/18/21 at 09:00 Furosemide (Lasix) 20 mg 1X ONCE IVP Last administered on 05/18/21at 00:36; Start 05/17/21 at 23:45; Stop 05/17/21 at 23:46; Status DC Piperacillin Sod/ Tazobactam Sod (Zosyn Per Pharmacy) 1 each PRN DAILY PRN MC SEE COMMENTS; Start 05/18/21 at 11:15 Piperacillin Sod/ Tazobactam Sod 2.25 gm/Sodium Chloride 50 ml @ 100 mls/hr Q6HRS IV Last administered on 05/19/21at 05:38; Start 05/18/21 at 12:00 Sodium Polystyrene Sulfonate (Kayexalate) 15 gm 1X ONCE PO Last administered on 05/18/21at 12:00; Start 05/18/21 at 11:30; Stop 05/18/21 at 11:31; Status DC Sodium Chloride (Normal Saline Flush) 3 ml QSHIFT PRN IV AFTER MEDS AND BLOOD DRAWS; Start 05/18/21 at 12:00 Sodium Chloride 1,000 ml @ 65 mls/hr [id number] IV Last administered on 05/19/21at 05:56; Start 05/18/21 at 12:00 Ondansetron HCl (Zofran) 4 mg PRN Q4HRS PRN IV NAUSEA/VOMITING; Start 05/18/21 at 12:00 Acetaminophen (Tylenol) 650 mg PRN Q4HRS PRN PO TEMP OVER 100.4F OR MILD PAIN; Start 05/18/21 at 12:00 Acetaminophen (Tylenol Supp) 650 mg PRN Q4HRS PRN NV TEMP OVER 100.4F OR MILD PAIN; Start 05/18/21 at 12:00 Sodium Monofluorophosphate (Fleet Adult) 133 ml PRN DAILY PRN NV CONSTIPATION; Start 05/18/21 at 12:00 Docusate Sodium (Colace) 100 mg PRN BID PRN PO HARD STOOLS; Start 05/18/21 at 12:00 Albuterol/ Ipratropium (Duoneb) 3 ml Q4HRS W/A NEB Last administered on 05/19/21at 07:49; Start 05/18/21 at 14:00 Guaifenesin (Robitussin) 200 mg PRN Q4HRS PRN PO COUGH; Start 05/18/21 at 12:00 Enoxaparin Sodium (Lovenox 40mg Syringe) 40 mg Q24H SQ Last administered on 05/18/21at 12:09; Start 05/18/21 at 12:00 Linezolid/Dextrose 300 ml @ 300 mls/hr Q12HR IV ; Start 05/19/21 at 11:00 Active Scripts Active Culturelle (Lactobacillus Rhamnosus Gg) 1 Each Cap.sprink 1 Cap PO BID 30 Days Dok (Docusate Sodium) 100 Mg Capsule 100 Mg PO PRN DAILY PRN 30 Days Acetaminophen 325 Mg Tablet 650 Mg PO PRN Q4HRS PRN 30 Days Furosemide 40 Mg Tablet 1 Tab PO PRN DAILY PRN 30 Days Clopidogrel (Clopidogrel Bisulfate) 75 Mg Tablet 75 Mg PO DAILYWBKFT 30 Days Aspirin Ec (Aspirin) 81 Mg Tablet.dr 81 Mg PO DAILYWBKFT 30 Days Reported Lisinopril 20 Mg Tablet 20 Mg PO DAILY Zoloft (Sertraline Hcl) 100 Mg Tablet 125 Mg PO DAILY Polytrim Eye Drops (Polymyxin B Sulf/Trimethoprim) 10 Ml Drops 1 Drop LEFTEYE BID Novolog (Insulin Aspart) 100 Unit/1 Ml Cartridge 5 Unit SQ DAILYWLUN Refresh Optive Eye Drops (Carboxymethylcellulos/Glycerin) 15 Ml Drops 1 Drop LEFTEYE QID Senna (Sennosides) 8.8 Mg/5 Ml Syrup 8.8 Mg PO PRN Q12HR PRN Melatonin 3 Mg Tablet 2 Tab PO QHS Levemir (Insulin Detemir) 100 Unit/1 Ml Vial 15 Unit SQ BID [erythromycin oint] OS BID Potassium Chloride (Potassium Chloride) 20 Meq Tablet.er 20 Meq PO DAILY Metoprolol Succinate ( Xl ) (Metoprolol Succinate) 25 Mg Tab.er.24h 25 Mg PO DAILY Lipitor (Atorvastatin Calcium) 40 Mg Tablet 40 Mg PO HS Synthroid (Levothyroxine Sodium) 50 Mcg Tablet 50 Mcg PO DAILYAC Allergies Allergies: Coded Allergies: No Known Medication Allergies (Verified Allergy, Unknown, 03/12/21) ROS Review of System Unable to obtain Physical Exam Physical Exam General Sleepy arousable does not answer most of the questions appears comfortable HEENT normocephalic atraumatic oropharynx clear Neck supple Lungs clear anteriorly Heart S1-S2 Abdominal soft bowel sounds present nontender Alvares in place Extremities previous left BKA unremarkable, right lower extremity erythema and warmth anterior armijo. There is an ulcer distal TMA with no drainage Derm warm dry no generalized rash except for above Neuro confuseD, sleepy but arousable unable to assess Psych unable to assess Vitals VITALS Vital Signs Date Time Temp Pulse Resp B/P (MAP) Pulse Ox O2 Delivery O2 Flow Rate FiO2 05/19/21 08:48 84 140/68 05/19/21 08:00 Nasal Cannula 2.0 05/19/21 07:49 97 05/19/21 07:00 98.1 20 98.1 Labs Labs Laboratory Tests Test 05/17/21 18:10 05/17/21 22:14 05/17/21 22:43 05/18/21 00:30 White Blood Count 13.7 x10^3/uL (4.0-11.0) Red Blood Count 4.30 x10^6/uL (4.30-5.70) Hemoglobin 13.1 g/dL (13.0-17.5) Hematocrit 39.8 % (39.0-53.0) Mean Corpuscular Volume 93 fL (79-100) Mean Corpuscular Hemoglobin 31 pg (25-35) Mean Corpuscular Hemoglobin Concent 33 g/dL (31-37) Red Cell Distribution Width 14.1 % (11.5-14.5) Platelet Count 218 x10^3/uL (140-400) Neutrophils (%) (Auto) 89 % (31-73) Lymphocytes (%) (Auto) 2 % (24-48) Monocytes (%) (Auto) 8 % (0-9) Eosinophils (%) (Auto) 0 % (0-3) Basophils (%) (Auto) 0 % (0-3) Neutrophils # (Auto) 12.2 x10^3/uL (1.8-7.7) Lymphocytes # (Auto) 0.3 x10^3/uL (1.0-4.8) Monocytes # (Auto) 1.2 x10^3/uL (0.0-1.1) Eosinophils # (Auto) 0.0 x10^3/uL (0.0-0.7) Basophils # (Auto) 0.0 x10^3/uL (0.0-0.2) Segmented Neutrophils % 93 % (35-66) Lymphocytes % 2 % (24-48) Monocytes % 5 % (0-10) Toxic Granulation Slight Platelet Estimate Adequate (ADEQUATE) Sodium Level 142 mmol/L (136-145) Potassium Level 5.7 mmol/L (3.5-5.1) Chloride Level 109 mmol/L (98-107) Carbon Dioxide Level 22 mmol/L (21-32) Anion Gap 11 (6-14) Blood Urea Nitrogen 40 mg/dL (8-26) Creatinine 1.6 mg/dL (0.7-1.3) Estimated GFR (Cockcroft-Gault) 42.3 BUN/Creatinine Ratio 25 (6-20) Glucose Level 176 mg/dL (70-99) Lactic Acid Level 1.0 mmol/L (0.4-2.0) Calcium Level 9.2 mg/dL (8.5-10.1) Magnesium Level 2.1 mg/dL (1.8-2.4) Total Bilirubin 0.7 mg/dL (0.2-1.0) Aspartate Amino Transf (AST/SGOT) 37 U/L (15-37) Alanine Aminotransferase (ALT/SGPT) 31 U/L (16-63) Alkaline Phosphatase 129 U/L (46-116) Creatine Kinase 120 U/L (39-308) Creatine Kinase MB (Mass) 1.2 ng/mL (0.0-3.6) Creatine Kinase MB Relative Index 1.0 % (0-4) Troponin I Quantitative 0.066 ng/mL (0.000-0.055) 0.128 ng/mL (0.000-0.055) 0.127 ng/mL (0.000-0.055) TF-Hco-A-Type Natriuretic Peptide 3078 pg/mL (0-449) Total Protein 7.4 g/dL (6.4-8.2) Albumin 3.1 g/dL (3.4-5.0) Albumin/Globulin Ratio 0.7 (1.0-1.7) Thyroid Stimulating Hormone (TSH) 1.505 uIU/mL (0.358-3.74) Urine Collection Type Unknown Urine Color Yellow Urine Clarity Clear Urine pH 5.0 (<5.0-8.0) Urine Specific [place] 1.020 (1.000-1.030) Urine Protein 100 mg/dL (NEG-TRACE) Urine Glucose (UA) Negative mg/dL (NEG) Urine Ketones (Stick) Negative mg/dL (NEG) Urine Blood Negative (NEG) Urine Nitrite Negative (NEG) Urine Bilirubin Negative (NEG) Urine Urobilinogen Dipstick 0.2 mg/dL (0.2 mg/dL) Urine Leukocyte Esterase Negative (NEG) Urine RBC 0 /HPF (0-2) Urine WBC 1-4 /HPF (0-4) Urine Squamous Epithelial Cells Few /LPF Urine Amorphous Sediment Present /HPF Urine Bacteria 0 /HPF (0-FEW) Urine Mucus Slight /LPF Test 05/18/21 03:15 05/18/21 07:16 05/18/21 11:26 05/18/21 16:44 White Blood Count 12.5 x10^3/uL (4.0-11.0) Red Blood Count 4.15 x10^6/uL (4.30-5.70) Hemoglobin 12.8 g/dL (13.0-17.5) Hematocrit 39.0 % (39.0-53.0) Mean Corpuscular Volume 94 fL (79-100) Mean Corpuscular Hemoglobin 31 pg (25-35) Mean Corpuscular Hemoglobin Concent 33 g/dL (31-37) Red Cell Distribution Width 14.1 % (11.5-14.5) Platelet Count 188 x10^3/uL (140-400) Neutrophils (%) (Auto) 83 % (31-73) Lymphocytes (%) (Auto) 5 % (24-48) Monocytes (%) (Auto) 11 % (0-9) Eosinophils (%) (Auto) 0 % (0-3) Basophils (%) (Auto) 1 % (0-3) Neutrophils # (Auto) 10.5 x10^3/uL (1.8-7.7) Lymphocytes # (Auto) 0.7 x10^3/uL (1.0-4.8) Monocytes # (Auto) 1.4 x10^3/uL (0.0-1.1) Eosinophils # (Auto) 0.0 x10^3/uL (0.0-0.7) Basophils # (Auto) 0.1 x10^3/uL (0.0-0.2) Sodium Level 144 mmol/L (136-145) Potassium Level 5.6 mmol/L (3.5-5.1) Chloride Level 109 mmol/L (98-107) Carbon Dioxide Level 24 mmol/L (21-32) Anion Gap 11 (6-14) Blood Urea Nitrogen 40 mg/dL (8-26) Creatinine 1.8 mg/dL (0.7-1.3) Estimated GFR (Cockcroft-Gault) 37.0 BUN/Creatinine Ratio 22 (6-20) Glucose Level 208 mg/dL (70-99) Calcium Level 9.1 mg/dL (8.5-10.1) Total Bilirubin 0.8 mg/dL (0.2-1.0) Aspartate Amino Transf (AST/SGOT) 32 U/L (15-37) Alanine Aminotransferase (ALT/SGPT) 32 U/L (16-63) Alkaline Phosphatase 125 U/L (46-116) C-Reactive Protein, Quantitative 136.4 mg/L (0-3.3) Total Protein 7.2 g/dL (6.4-8.2) Albumin 3.0 g/dL (3.4-5.0) Albumin/Globulin Ratio 0.7 (1.0-1.7) Procalcitonin 0.46 ng/mL (0.00-0.10) Glucose (Fingerstick) 212 mg/dL (70-99) 332 mg/dL (70-99) 191 mg/dL (70-99) Test 05/18/21 20:47 05/19/21 06:55 05/19/21 07:35 Glucose (Fingerstick) 356 mg/dL (70-99) 192 mg/dL (70-99) White Blood Count 11.0 x10^3/uL (4.0-11.0) Red Blood Count 3.83 x10^6/uL (4.30-5.70) Hemoglobin 11.7 g/dL (13.0-17.5) Hematocrit 35.3 % (39.0-53.0) Mean Corpuscular Volume 92 fL (79-100) Mean Corpuscular Hemoglobin 31 pg (25-35) Mean Corpuscular Hemoglobin Concent 33 g/dL (31-37) Red Cell Distribution Width 14.1 % (11.5-14.5) Platelet Count 176 x10^3/uL (140-400) Neutrophils (%) (Auto) 85 % (31-73) Lymphocytes (%) (Auto) 4 % (24-48) Monocytes (%) (Auto) 11 % (0-9) Eosinophils (%) (Auto) 0 % (0-3) Basophils (%) (Auto) 0 % (0-3) Neutrophils # (Auto) 9.3 x10^3/uL (1.8-7.7) Lymphocytes # (Auto) 0.4 x10^3/uL (1.0-4.8) Monocytes # (Auto) 1.2 x10^3/uL (0.0-1.1) Eosinophils # (Auto) 0.0 x10^3/uL (0.0-0.7) Basophils # (Auto) 0.0 x10^3/uL (0.0-0.2) Sodium Level 141 mmol/L (136-145) Potassium Level 3.7 mmol/L (3.5-5.1) Chloride Level 107 mmol/L (98-107) Carbon Dioxide Level 24 mmol/L (21-32) Anion Gap 10 (6-14) Blood Urea Nitrogen 46 mg/dL (8-26) Creatinine 2.0 mg/dL (0.7-1.3) Estimated GFR (Cockcroft-Gault) 32.7 Glucose Level 211 mg/dL (70-99) Calcium Level 8.1 mg/dL (8.5-10.1) Laboratory Tests Test 05/18/21 11:26 05/18/21 16:44 05/18/21 20:47 05/19/21 06:55 Glucose (Fingerstick) 332 mg/dL (70-99) 191 mg/dL (70-99) 356 mg/dL (70-99) White Blood Count 11.0 x10^3/uL (4.0-11.0) Red Blood Count 3.83 x10^6/uL (4.30-5.70) Hemoglobin 11.7 g/dL (13.0-17.5) Hematocrit 35.3 % (39.0-53.0) Mean Corpuscular Volume 92 fL (79-100) Mean Corpuscular Hemoglobin 31 pg (25-35) Mean Corpuscular Hemoglobin Concent 33 g/dL (31-37) Red Cell Distribution Width 14.1 % (11.5-14.5) Platelet Count 176 x10^3/uL (140-400) Neutrophils (%) (Auto) 85 % (31-73) Lymphocytes (%) (Auto) 4 % (24-48) Monocytes (%) (Auto) 11 % (0-9) Eosinophils (%) (Auto) 0 % (0-3) Basophils (%) (Auto) 0 % (0-3) Neutrophils # (Auto) 9.3 x10^3/uL (1.8-7.7) Lymphocytes # (Auto) 0.4 x10^3/uL (1.0-4.8) Monocytes # (Auto) 1.2 x10^3/uL (0.0-1.1) Eosinophils # (Auto) 0.0 x10^3/uL (0.0-0.7) Basophils # (Auto) 0.0 x10^3/uL (0.0-0.2) Sodium Level 141 mmol/L (136-145) Potassium Level 3.7 mmol/L (3.5-5.1) Chloride Level 107 mmol/L (98-107) Carbon Dioxide Level 24 mmol/L (21-32) Anion Gap 10 (6-14) Blood Urea Nitrogen 46 mg/dL (8-26) Creatinine 2.0 mg/dL (0.7-1.3) Estimated GFR (Cockcroft-Gault) 32.7 Glucose Level 211 mg/dL (70-99) Calcium Level 8.1 mg/dL (8.5-10.1) Test 05/19/21 07:35 Glucose (Fingerstick) 192 mg/dL (70-99) MICRO RUN DATE: 03/13/21 [facility] *LIVE* PAGE 1 RUN TIME: 944 Specimen Inquiry PATIENT: EVE DEMPSEY ACCT: [id number] LOC: [address] [place] [address] U: [id number] AGE/SX: 76/M ROOM: [facility] RE03/06/[address]: KYAW HERNANDEZ MD : 1945 BED: 1 DIS: STATUS: ADM IN TLOC: ------- ----- SPEC #: [id number] LILLY: 03/07/21-1230 STATUS: COMP REQ #: [id number] RECD: 03/07/[address] [facility] [address]: PAUL CRAIG APRN SOURCE: FOOT ENTR: 03/07/21-[address] [facility] [address]: LOVE CRAIG MD SPDESC: RICHIE VELASCO MD, GLENN A MD WU, KEVIN Y MD ORDERED: LEIDY/GEMA/BOLA COMMENTS: Has specimen been collected/obtained? Y Procedure Result GRAM STAIN Final Final GRAM NEGATIVE RODS:MANY GRAM POSITIVE COCCI:MODERATE SQUAMOUS EPI CELL:NONE SEEN PMN (WBCs):RARE Unless otherwise specified, Testing Performed by: [address] [address] For Inquires, the Physician may contact the Microbiology department at [phone] ANAEROBIC-AEROBIC CULTURE Final Final MANY GRAM NEGATIVE RODS on 03/09/21 at 1004 FINAL ID= [PSEUDOMONAS AERUGINOSA] MODERATE GRAM POSITIVE COCCI on 03/11/21 at 0754 FINAL ID= [STAPHYLOCOCCUS AUREUS (MRSA)] FEW ANAEROBIC GRAM NEGATIVE RODS on 03/11/21 at 1004 FINAL ID= [BACTEROIDES OVATUS GROUP] PSEUDOMONAS AERUGINOSA STAPHYLOCOCCUS AUREUS (MRSA) UNIDENTIFIED ORGANISM UNIDENTIFIED ORGANISM BACTEROIDES OVATUS GROUP ANTIMICROBIAL SUSCEPTIBILITY Final Comment Comment NEG NORMA 56 PSEUDOMONAS AERUGINOSA ANTIBIOTIC RESULT INTERPRETATION AMIKACIN <=16 S AZTREONAM <=4 S CEFTAZIDIME 4 S CIPROFLOXACIN <=0.25 S RUN DATE: 03/13/21 [facility] *LIVE* PAGE 2 RUN TIME: 944 Specimen Inquiry SPEC: [id number] PATIENT: EVE DEMPSEY [id number] (Continued) Procedure Result CONTINUED ON NEXT PAGE RUN DATE: 03/13/21 [facility] *LIVE* PAGE 3 RUN TIME: 0945 Specimen Inquiry SPEC: [id number] PATIENT: EVE DEMPSEY [id number] (Continued) Procedure Result ANTIMICROBIAL SUSCEPTIBILITY Final (continued) CEFEPIME <=2 S CEFTAZIDIME/AVIBACTAM <=4 S GENTAMICIN 4 S LEVOFLOXACIN <=0.5 S MEROPENEM <=1 S PIPERACILLIN/TAZOBACTAM <=8 S TOBRAMYCIN <=2 S POS NORMA TYPE 38 STAPHYLOCOCCUS AUREUS (MRSA) ANTIBIOTIC RESULT INTERPRETATION AZITHROMYCIN >4 R CLINDAMYCIN 0.5 S CEFOXITIN SCREEN >4 POS CIPROFLOXACIN >2 R CEFTAROLINE 1 S DAPTOMYCIN 1 S ERYTHROMYCIN >4 R GENTAMICIN <=4 S INDUCIBLE CLINDAMYCIN <=4/0.5 NEG LINEZOLID 4 S LEVOFLOXACIN >4 R OXACILLIN >2 R PENICILLIN >2 R* RIFAMPIN <=1 S TRIMETHOPRIM/SULFAMETHOXAZOLE <=0.5/9.5 S TETRACYCLINE <=4 S VANCOMYCIN 1 S Unless otherwise specified, Testing Performed by: [address] [address] For Inquires, the Physician may contact the Microbiology department at [phone] Images Images PATIENT: EVE DEMPSEYCCOUNT: [id number] : 1945 LOCATION: ER AGE: 76 SEX: M EXAM STATUS: REG ER ORD. PHYSICIAN: ELISABETH WHEATLEY APRN REASON: AMS PROCEDURE: PORTABLE CHEST 1V EXAM: CHEST 1 VIEW History: Altered mental status COMPARISON: 03/26/2021 TECHNIQUE: Single portable radiograph of the chest FINDINGS: Mild cardiomegaly. Bibasilar lung airspace opacities. Mild prominent bilateral interstitial lung markings. IMPRESSION: Bibasilar lung airspace opacities likely atelectasis or infiltrates. Electronically signed by: Fidel Oliveira MD (05/17/2021 7:02 PM) [id number] REASON: AMS- PROCEDURE: CT HEAD WO CONTRAST PQRS Compliance Statement: One or more of the following individualized dose reduction techniques were utilized for this examination: 1. Automated exposure control 2. Adjustment of the mA and/or kV according to patient size 3. Use of iterative reconstruction technique CT head without contrast 05/17/2021 11:29 PM INDICATION: Acute mental status COMPARISON: 03/26/2021 TECHNIQUE: Multiple axial CT images of the head were obtained from skull base through the vertex without intravenous contrast. FINDINGS: Head: Ventricles, sulci and basal cisterns are prominent compatible with mild general cerebral volume loss. There is no hydrocephalus. There is moderate territory subcortical and cortical based hypoattenuation involving the right frontal white matter involving the right frontal operculum, stable from prior examination compatible with remote ischemic changes. Small territory remote infarct involving the right temporal lobe and left occipital lobe. Findings are stable. No new areas of cerebral edema identified. Low-attenuation in the periventricular white matter is suggestive of chronic small vessel ischemic changes. There is no acute intracranial hemorrhage. There is no mass, mass effect or midline shift. Posterior fossa is normal in appearance. Visualized portions of the orbits are normal with exception of bilateral lens replacement. Paranasal sinuses are well aerated. Mastoid air cells are well aerated. Scalp and calvaria are normal. IMPRESSION: No acute intracranial hemorrhage. 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 Mild generalized cerebral volume loss. Low-attenuation in the periventricular white matter is suggestive of chronic small vessel ischemic changes. Electronically signed by: Jane Pisano MD (05/17/2021 11:53 PM) [facility] PATIENT: EVE DEMPSEYCCOUNT: [id number] : 1945 LOCATION: [address] [place] [address] AGE: 76 SEX: M EXAM STATUS: ADM IN ORD. PHYSICIAN: ERICA FARRAR MD REASON: ? PAD with wounds PROCEDURE: DUPLEX LOWER EX ARTERIAL RIGHT US RIGHT LOWER EXTREMITY ARTERIAL DUPLEX EVAL Indication: Reason: PAD with wounds / Spl. Instructions: / History: Comparison: None. Procedure: Real-time grayscale, color flow Doppler, and Doppler spectral waveform analysis of the arterial system of the lower extremity is performed. Findings: Right lower extremity: Monophasic waveforms throughout the right lower ex tremity. Elevated velocity within the right common femoral artery measures 240 cm/s. Moderate atheromatous plaque. IMPRESSION: 1. Elevated velocity within the right common femoral artery, may indicate 50-75 percent stenosis. 2. Moderate atheromatous plaque. 3. Monophasic waveform throughout the right lower extremity. Assessment/Plan Assessment/Plan Fever improving Leukocytosis resolved Encephalopathy CT head negative for acute process Chronic nonhealing right diabetic foot wound with history of TMA in the past History of left BKA Diabetes mellitus with neuropathy Peripheral vascular disease Chronic renal insufficiency History of dementia and CVA senior living resident Chronic diastolic CHF Recommendations Will DC Zosyn Start empiric cefepime and Flagyl Continue linezolid Change Alvares if not done already Right foot x-ray Local wound care Maintain aspiration precautions Prognosis very poor Discussed with nursing staff You for allowing me to participate in this patient's care. JESSA CALLAHAN MD May 19, 2021 10:41
[2021-05-19] MEDS: ENOXAPARIN 40 MG/0.4 ML SYRINGE. SQ SCH (10:44)
[2021-05-19 11:00] VITALS: BP 135/57
--- NOTE | 2021-05-19 12:44 | PDOC2 ---
CONSULT Date of Consult Date of Consult DATE: 05/19/21 TIME: 12:40 Reason for Consult Reason for Consult: ABA . 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 He is arousable but poor historian. No reported N/V/D. No Abdominal pain. No urinary complaints Past Medical History Cardiovascular: CAD, CHF, HTN, Hyperlipidemia, Other (Peripheral vascular disease. Lower extremity her angiogram on 03/12/2021 showed a right common femoral lesion which was improved status post balloon angioplasty. ) Pulmonary: Bronchitis CENTRAL NERVOUS SYSTEM: CVA, Periperal neuropathy GI: Constipation Heme/Onc: Anemia NOS Psych: Anxiety, Addictions Musculoskeletal: Osteoarthritis Renal/: Chronic renal insuff, Benign prostatic enlarg. Endocrine: Diabetes, Hypothyroidism Past Surgical History Past Surgical History: Cataract Removal, Tonsillectomy, Other (Left BKA, right amputation of several toes.) Family History Family History: Diabetes, High Cholestrol, Hypertension Social History No ALCOHOL: none Drugs: None Current Problem List Problem List Problems Medical Problems: (1) Altered mental status Status: Acute Current Medications Current Medications Current Medications Ondansetron HCl (Zofran) 4 mg PRN Q8HRS PRN IV NAUSEA/VOMITING; Start 05/17/21 at 20:45; Stop 05/18/21 at 20:44; Status DC Morphine Sulfate (Morphine Sulfate) 2 mg PRN Q2HR PRN IV PAIN; Start 05/17/21 at 20:45; Stop 05/18/21 at 20:44; Status DC Acetaminophen (Tylenol) 650 mg PRN Q4HRS PRN PO FEVER > 100.3'F; Start 05/17/21 at 20:45; Stop 05/18/21 at 20:44; Status DC Lorazepam (Ativan Inj) 1 mg 1X ONCE IVP ; Start 05/17/21 at 21:30; Stop 05/17/21 at 21:31; Status DC Aspirin (Ecotrin) 81 mg DAILYWBKFT PO Last administered on 05/19/21at 08:48; Start 05/18/21 at 08:00 Atorvastatin Calcium (Lipitor) 40 mg HS PO Last administered on 05/18/21at 21:31; Start 05/18/21 at 21:00 Clopidogrel Bisulfate (Plavix) 75 mg DAILYWBKFT PO Last administered on 05/19/21at 08:48; Start 05/18/21 at 08:00 Docusate Sodium (Colace) 100 mg PRN DAILY PRN PO HARD STOOLS; Start 05/17/21 at 23:15; Status Cancel Levothyroxine Sodium (Synthroid) 50 mcg DAILY06 PO Last administered on 05/19/21at 05:55; Start 05/18/21 at 06:00 Metoprolol Succinate (Toprol Xl) 25 mg DAILY PO Last administered on 05/19/21at 08:48; Start 05/18/21 at 09:00 Glycerin/ Hypromellose/ Polyethylene (Artificial Tears) 1 drop QID OU Last administered on 05/19/21at 10:43; Start 05/18/21 at 09:00 Insulin Human Lispro (HumaLOG) 5 units DAILYWLUN SQ Last administered on 05/18/21at 12:01; Start 05/18/21 at 12:00 Insulin Glargine (Lantus Syringe) 15 unit BID SQ Last administered on 05/19/21at 08:49; Start 05/18/21 at 09:00 Sennosides (Senna) 8.6 mg PRN BID PRN PO CONSTIPATION 1ST CHOICE; Start 05/17/21 at 23:30 Sertraline HCl (Zoloft) 125 mg DAILY PO Last administered on 05/19/21at 08:49; Start 05/18/21 at 09:00 Furosemide (Lasix) 20 mg 1X ONCE IVP Last administered on 05/18/21at 00:36; Start 05/17/21 at 23:45; Stop 05/17/21 at 23:46; Status DC Piperacillin Sod/ Tazobactam Sod (Zosyn Per Pharmacy) 1 each PRN DAILY PRN MC SEE COMMENTS; Start 05/18/21 at 11:15; Stop 05/19/21 at 10:41; Status DC Piperacillin Sod/ Tazobactam Sod 2.25 gm/Sodium Chloride 50 ml @ 100 mls/hr Q6HRS IV Last administered on 05/19/21at 05:38; Start 05/18/21 at 12:00; Stop 05/19/21 at 10:39; Status DC Sodium Polystyrene Sulfonate (Kayexalate) 15 gm 1X ONCE PO Last administered on 05/18/21at 12:00; Start 05/18/21 at 11:30; Stop 05/18/21 at 11:31; Status DC Sodium Chloride (Normal Saline Flush) 3 ml QSHIFT PRN IV AFTER MEDS AND BLOOD DRAWS; Start 05/18/21 at 12:00 Sodium Chloride 1,000 ml @ 65 mls/hr [id number] IV Last administered on 05/19/21at 05:56; Start 05/18/21 at 12:00 Ondansetron HCl (Zofran) 4 mg PRN Q4HRS PRN IV NAUSEA/VOMITING; Start 05/18/21 at 12:00 Acetaminophen (Tylenol) 650 mg PRN Q4HRS PRN PO TEMP OVER 100.4F OR MILD PAIN; Start 05/18/21 at 12:00 Acetaminophen (Tylenol Supp) 650 mg PRN Q4HRS PRN IA TEMP OVER 100.4F OR MILD PAIN; Start 05/18/21 at 12:00 Sodium Monofluorophosphate (Fleet Adult) 133 ml PRN DAILY PRN IA CONSTIPATION; Start 05/18/21 at 12:00 Docusate Sodium (Colace) 100 mg PRN BID PRN PO HARD STOOLS; Start 05/18/21 at 12:00 Albuterol/ Ipratropium (Duoneb) 3 ml Q4HRS W/A NEB Last administered on 05/19/21at 12:33; Start 05/18/21 at 14:00 Guaifenesin (Robitussin) 200 mg PRN Q4HRS PRN PO COUGH; Start 05/18/21 at 12:00 Enoxaparin Sodium (Lovenox 40mg Syringe) 40 mg Q24H SQ Last administered on 05/19/21at 10:44; Start 05/18/21 at 12:00 Linezolid/Dextrose 300 ml @ 300 mls/hr Q12HR IV Last administered on 05/19/21at 10:43; Start 05/19/21 at 11:00 Cefepime HCl (Maxipime) 1 gm Q8HRS IVP ; Start 05/19/21 at 14:00 Metronidazole 100 ml @ 100 mls/hr Q12HR IV ; Start 05/19/21 at 21:00 Lactobacillus Rhamnosus (Culturelle) 1 cap BID PO ; Start 05/19/21 at 21:00 Active Scripts Active Culturelle (Lactobacillus Rhamnosus Gg) 1 Each Cap.sprink 1 Cap PO BID 30 Days Dok (Docusate Sodium) 100 Mg Capsule 100 Mg PO PRN DAILY PRN 30 Days Acetaminophen 325 Mg Tablet 650 Mg PO PRN Q4HRS PRN 30 Days Furosemide 40 Mg Tablet 1 Tab PO PRN DAILY PRN 30 Days Clopidogrel (Clopidogrel Bisulfate) 75 Mg Tablet 75 Mg PO DAILYWBKFT 30 Days Aspirin Ec (Aspirin) 81 Mg Tablet.dr 81 Mg PO DAILYWBKFT 30 Days Reported Lisinopril 20 Mg Tablet 20 Mg PO DAILY Zoloft (Sertraline Hcl) 100 Mg Tablet 125 Mg PO DAILY Polytrim Eye Drops (Polymyxin B Sulf/Trimethoprim) 10 Ml Drops 1 Drop LEFTEYE BID Novolog (Insulin Aspart) 100 Unit/1 Ml Cartridge 5 Unit SQ DAILYWLUN Refresh Optive Eye Drops (Carboxymethylcellulos/Glycerin) 15 Ml Drops 1 Drop LEFTEYE QID Senna (Sennosides) 8.8 Mg/5 Ml Syrup 8.8 Mg PO PRN Q12HR PRN Melatonin 3 Mg Tablet 2 Tab PO QHS Levemir (Insulin Detemir) 100 Unit/1 Ml Vial 15 Unit SQ BID [erythromycin oint] OS BID Potassium Chloride (Potassium Chloride) 20 Meq Tablet.er 20 Meq PO DAILY Metoprolol Succinate ( Xl ) (Metoprolol Succinate) 25 Mg Tab.er.24h 25 Mg PO DAILY Lipitor (Atorvastatin Calcium) 40 Mg Tablet 40 Mg PO HS Synthroid (Levothyroxine Sodium) 50 Mcg Tablet 50 Mcg PO DAILYAC Allergies Allergies: Coded Allergies: No Known Medication Allergies (Verified Allergy, Unknown, 03/12/21) ROS Review of System As per HPI, Poor Historian, Limited ROS Physical Exam Physical Exam GENERAL:NAD HEENT: Om moist NECK: Supple. LUNGS: Clear to auscultation.Non labored HEART: Normal S1, S2. ABDOMEN: Obese, soft, nontender with bowel sounds present. EXTREMITIES: Previous left BKA SKIN: Warm to touch. No signs of generalized rash. NEUROLOGIC: Alert, answering simple questions, poor historian. No bui Vital Signs Vital Signs Date Time Temp Pulse Resp B/P (MAP) Pulse Ox O2 Delivery O2 Flow Rate FiO2 05/19/21 12:33 97 Nasal Cannula 2.0 05/19/21 11:00 98.9 78 20 135/57 (83) 98.9 Assessment & Plan ABA - Vasomotor vs his baseline renal function, Initermittent fluctuating Cr - baseline Cr as OP has been ~2.0 , Recent hospitalizations Cr 1.5-1.8 Non Oliguric, maintain Hydration, avoid nephrotoxins, supportive care CKD STAGE 3 b- baseline Cr ~2.0, No show for his follow up appts as OP Marked left hydroureteronephrosis-Chronic with ureteral stricture (in the past pt had refused Urology consult) CT - point of transition is in the ureter at the pelvic brim, no focal abnormality such as a calculus, focal stricture cannot be excluded. The hydronephrosis appears long-standing as there is severe cortical thinning of the left kidney. 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 Diabetes mellitus with neuropathy Peripheral vascular disease History of dementia and CVA Chronic diastolic CHF Labs Labs Laboratory Tests Test 05/17/21 18:10 05/17/21 22:14 05/17/21 22:43 05/18/21 00:30 White Blood Count 13.7 x10^3/uL (4.0-11.0) Red Blood Count 4.30 x10^6/uL (4.30-5.70) Hemoglobin 13.1 g/dL (13.0-17.5) Hematocrit 39.8 % (39.0-53.0) Mean Corpuscular Volume 93 fL (79-100) Mean Corpuscular Hemoglobin 31 pg (25-35) Mean Corpuscular Hemoglobin Concent 33 g/dL (31-37) Red Cell Distribution Width 14.1 % (11.5-14.5) Platelet Count 218 x10^3/uL (140-400) Neutrophils (%) (Auto) 89 % (31-73) Lymphocytes (%) (Auto) 2 % (24-48) Monocytes (%) (Auto) 8 % (0-9) Eosinophils (%) (Auto) 0 % (0-3) Basophils (%) (Auto) 0 % (0-3) Neutrophils # (Auto) 12.2 x10^3/uL (1.8-7.7) Lymphocytes # (Auto) 0.3 x10^3/uL (1.0-4.8) Monocytes # (Auto) 1.2 x10^3/uL (0.0-1.1) Eosinophils # (Auto) 0.0 x10^3/uL (0.0-0.7) Basophils # (Auto) 0.0 x10^3/uL (0.0-0.2) Segmented Neutrophils % 93 % (35-66) Lymphocytes % 2 % (24-48) Monocytes % 5 % (0-10) Toxic Granulation Slight Platelet Estimate Adequate (ADEQUATE) Sodium Level 142 mmol/L (136-145) Potassium Level 5.7 mmol/L (3.5-5.1) Chloride Level 109 mmol/L (98-107) Carbon Dioxide Level 22 mmol/L (21-32) Anion Gap 11 (6-14) Blood Urea Nitrogen 40 mg/dL (8-26) Creatinine 1.6 mg/dL (0.7-1.3) Estimated GFR (Cockcroft-Gault) 42.3 BUN/Creatinine Ratio 25 (6-20) Glucose Level 176 mg/dL (70-99) Lactic Acid Level 1.0 mmol/L (0.4-2.0) Calcium Level 9.2 mg/dL (8.5-10.1) Magnesium Level 2.1 mg/dL (1.8-2.4) Total Bilirubin 0.7 mg/dL (0.2-1.0) Aspartate Amino Transf (AST/SGOT) 37 U/L (15-37) Alanine Aminotransferase (ALT/SGPT) 31 U/L (16-63) Alkaline Phosphatase 129 U/L (46-116) Creatine Kinase 120 U/L (39-308) Creatine Kinase MB (Mass) 1.2 ng/mL (0.0-3.6) Creatine Kinase MB Relative Index 1.0 % (0-4) Troponin I Quantitative 0.066 ng/mL (0.000-0.055) 0.128 ng/mL (0.000-0.055) 0.127 ng/mL (0.000-0.055) XY-Gmu-S-Type Natriuretic Peptide 3078 pg/mL (0-449) Total Protein 7.4 g/dL (6.4-8.2) Albumin 3.1 g/dL (3.4-5.0) Albumin/Globulin Ratio 0.7 (1.0-1.7) Thyroid Stimulating Hormone (TSH) 1.505 uIU/mL (0.358-3.74) Urine Collection Type Unknown Urine Color Yellow Urine Clarity Clear Urine pH 5.0 (<5.0-8.0) Urine Specific [place] 1.020 (1.000-1.030) Urine Protein 100 mg/dL (NEG-TRACE) Urine Glucose (UA) Negative mg/dL (NEG) Urine Ketones (Stick) Negative mg/dL (NEG) Urine Blood Negative (NEG) Urine Nitrite Negative (NEG) Urine Bilirubin Negative (NEG) Urine Urobilinogen Dipstick 0.2 mg/dL (0.2 mg/dL) Urine Leukocyte Esterase Negative (NEG) Urine RBC 0 /HPF (0-2) Urine WBC 1-4 /HPF (0-4) Urine Squamous Epithelial Cells Few /LPF Urine Amorphous Sediment Present /HPF Urine Bacteria 0 /HPF (0-FEW) Urine Mucus Slight /LPF Test 05/18/21 03:15 05/18/21 07:16 05/18/21 11:26 05/18/21 16:44 White Blood Count 12.5 x10^3/uL (4.0-11.0) Red Blood Count 4.15 x10^6/uL (4.30-5.70) Hemoglobin 12.8 g/dL (13.0-17.5) Hematocrit 39.0 % (39.0-53.0) Mean Corpuscular Volume 94 fL (79-100) Mean Corpuscular Hemoglobin 31 pg (25-35) Mean Corpuscular Hemoglobin Concent 33 g/dL (31-37) Red Cell Distribution Width 14.1 % (11.5-14.5) Platelet Count 188 x10^3/uL (140-400) Neutrophils (%) (Auto) 83 % (31-73) Lymphocytes (%) (Auto) 5 % (24-48) Monocytes (%) (Auto) 11 % (0-9) Eosinophils (%) (Auto) 0 % (0-3) Basophils (%) (Auto) 1 % (0-3) Neutrophils # (Auto) 10.5 x10^3/uL (1.8-7.7) Lymphocytes # (Auto) 0.7 x10^3/uL (1.0-4.8) Monocytes # (Auto) 1.4 x10^3/uL (0.0-1.1) Eosinophils # (Auto) 0.0 x10^3/uL (0.0-0.7) Basophils # (Auto) 0.1 x10^3/uL (0.0-0.2) Sodium Level 144 mmol/L (136-145) Potassium Level 5.6 mmol/L (3.5-5.1) Chloride Level 109 mmol/L (98-107) Carbon Dioxide Level 24 mmol/L (21-32) Anion Gap 11 (6-14) Blood Urea Nitrogen 40 mg/dL (8-26) Creatinine 1.8 mg/dL (0.7-1.3) Estimated GFR (Cockcroft-Gault) 37.0 BUN/Creatinine Ratio 22 (6-20) Glucose Level 208 mg/dL (70-99) Calcium Level 9.1 mg/dL (8.5-10.1) Total Bilirubin 0.8 mg/dL (0.2-1.0) Aspartate Amino Transf (AST/SGOT) 32 U/L (15-37) Alanine Aminotransferase (ALT/SGPT) 32 U/L (16-63) Alkaline Phosphatase 125 U/L (46-116) C-Reactive Protein, Quantitative 136.4 mg/L (0-3.3) Total Protein 7.2 g/dL (6.4-8.2) Albumin 3.0 g/dL (3.4-5.0) Albumin/Globulin Ratio 0.7 (1.0-1.7) Procalcitonin 0.46 ng/mL (0.00-0.10) Glucose (Fingerstick) 212 mg/dL (70-99) 332 mg/dL (70-99) 191 mg/dL (70-99) Test 05/18/21 20:47 05/19/21 06:55 05/19/21 07:35 05/19/21 12:11 Glucose (Fingerstick) 356 mg/dL (70-99) 192 mg/dL (70-99) 276 mg/dL (70-99) White Blood Count 11.0 x10^3/uL (4.0-11.0) Red Blood Count 3.83 x10^6/uL (4.30-5.70) Hemoglobin 11.7 g/dL (13.0-17.5) Hematocrit 35.3 % (39.0-53.0) Mean Corpuscular Volume 92 fL (79-100) Mean Corpuscular Hemoglobin 31 pg (25-35) Mean Corpuscular Hemoglobin Concent 33 g/dL (31-37) Red Cell Distribution Width 14.1 % (11.5-14.5) Platelet Count 176 x10^3/uL (140-400) Neutrophils (%) (Auto) 85 % (31-73) Lymphocytes (%) (Auto) 4 % (24-48) Monocytes (%) (Auto) 11 % (0-9) Eosinophils (%) (Auto) 0 % (0-3) Basophils (%) (Auto) 0 % (0-3) Neutrophils # (Auto) 9.3 x10^3/uL (1.8-7.7) Lymphocytes # (Auto) 0.4 x10^3/uL (1.0-4.8) Monocytes # (Auto) 1.2 x10^3/uL (0.0-1.1) Eosinophils # (Auto) 0.0 x10^3/uL (0.0-0.7) Basophils # (Auto) 0.0 x10^3/uL (0.0-0.2) Sodium Level 141 mmol/L (136-145) Potassium Level 3.7 mmol/L (3.5-5.1) Chloride Level 107 mmol/L (98-107) Carbon Dioxide Level 24 mmol/L (21-32) Anion Gap 10 (6-14) Blood Urea Nitrogen 46 mg/dL (8-26) Creatinine 2.0 mg/dL (0.7-1.3) Estimated GFR (Cockcroft-Gault) 32.7 Glucose Level 211 mg/dL (70-99) Calcium Level 8.1 mg/dL (8.5-10.1) Laboratory Tests Test 05/18/21 16:44 05/18/21 20:47 05/19/21 06:55 05/19/21 07:35 Glucose (Fingerstick) 191 mg/dL (70-99) 356 mg/dL (70-99) 192 mg/dL (70-99) White Blood Count 11.0 x10^3/uL (4.0-11.0) Red Blood Count 3.83 x10^6/uL (4.30-5.70) Hemoglobin 11.7 g/dL (13.0-17.5) Hematocrit 35.3 % (39.0-53.0) Mean Corpuscular Volume 92 fL (79-100) Mean Corpuscular Hemoglobin 31 pg (25-35) Mean Corpuscular Hemoglobin Concent 33 g/dL (31-37) Red Cell Distribution Width 14.1 % (11.5-14.5) Platelet Count 176 x10^3/uL (140-400) Neutrophils (%) (Auto) 85 % (31-73) Lymphocytes (%) (Auto) 4 % (24-48) Monocytes (%) (Auto) 11 % (0-9) Eosinophils (%) (Auto) 0 % (0-3) Basophils (%) (Auto) 0 % (0-3) Neutrophils # (Auto) 9.3 x10^3/uL (1.8-7.7) Lymphocytes # (Auto) 0.4 x10^3/uL (1.0-4.8) Monocytes # (Auto) 1.2 x10^3/uL (0.0-1.1) Eosinophils # (Auto) 0.0 x10^3/uL (0.0-0.7) Basophils # (Auto) 0.0 x10^3/uL (0.0-0.2) Sodium Level 141 mmol/L (136-145) Potassium Level 3.7 mmol/L (3.5-5.1) Chloride Level 107 mmol/L (98-107) Carbon Dioxide Level 24 mmol/L (21-32) Anion Gap 10 (6-14) Blood Urea Nitrogen 46 mg/dL (8-26) Creatinine 2.0 mg/dL (0.7-1.3) Estimated GFR (Cockcroft-Gault) 32.7 Glucose Level 211 mg/dL (70-99) Calcium Level 8.1 mg/dL (8.5-10.1) Test 05/19/21 12:11 Glucose (Fingerstick) 276 mg/dL (70-99) Review All relevant outside records, renal labs, imaging studies, telemetry/EKG's were reviewed. Images Images EXAM: XR CHEST 1V, XR FOOT_RIGHT 3 VIEWS 05/19/2021 9:55 AM CLINICAL INDICATION: Sepsis, possible osteomyelitis COMPARISON: Chest radiograph 05/17/2021 FINDINGS: Chest radiograph: One view obtained. The heart is normal in size. Lungs are adequately expanded. Mild bibasilar opacities are unchanged, likely atelectasis. No pleural effusion or pneumothorax. Right foot: 3 views obtained. There is are changes of transmetatarsal amputation of the forefoot. There is no evidence of new osseous destruction. Minimal soft tissue gas or small ulcer at the plantar distal aspect of the stump. Distal tibial and fibular hardware is partially visualized. IMPRESSION: 1. Chest: Unchanged mild bibasilar opacities, likely. 2. Right foot: Surgical changes of transmetatarsal amputation. No radiographic evidence of osteomyelitis. Probable small soft tissue ulcer at the plantar distal aspect of the stump. RICHIE GONZALEZ MD May 19, 2021 12:43
[2021-05-19] MEDS: CEFEPIME HCL IV Push 1 GM VIAL. IVP SCH ×2 (12:46→20:50)
[2021-05-19] MEDS: INSULIN LISPRO 300 UNITS/3 ML VIAL. SQ SCH (12:50)
--- NOTE | 2021-05-19 13:20 | NUR ---
Bedside Swallow Evaluation completed. Please refer to full report in intervention section for additional information. Impressions: Moderate oropharyngeal dysphagia w/ overt s/s aspiration w/ thin liquids and prolonged chewing of soft solids that are not functional for intake. Cognitive status may be a contributing factor to prolonged, nonfunctional chewing pattern currently. Diet modification to dysphagia I and honey thick liquid, and 1:1 feeding/cueing necessitated. Recommendations: Dysphagia I diet w/ honey thick liquids, swallow strategies, 1:1 feeding/cuing, ST f/u for dysphagia, nutrition consult.
--- NOTE | 2021-05-19 14:38 | RAD ---
EXAM: XR CHEST 1V, XR FOOT_RIGHT 3 VIEWS 05/19/2021 9:55 AM CLINICAL INDICATION: Sepsis, possible osteomyelitis COMPARISON: Chest radiograph 05/17/2021 FINDINGS: Chest radiograph: One view obtained. The heart is normal in size. Lungs are adequately expanded. Mild bibasilar opacities are unchanged, likely atelectasis. No pleural effusion or pneumothorax. Right foot: 3 views obtained. There is are changes of transmetatarsal amputation of the forefoot. The re is no evidence of new osseous destruction. Minimal soft tissue gas or small ulcer at the plantar d istal aspect of the stump. Distal tibial and fibular hardware is partially visualized. IMPRESSION: 1. Chest: Unchanged mild bibasilar opacities, likely. 2. Right foot: Surgical changes of transmetatarsal amputation. No radiographic evidence of osteomyeli tis. Probable small soft tissue ulcer at the plantar distal aspect of the stump. Electronically signed by: Jennifer Escobar MD (05/19/2021 2:35 PM) [id number]
[2021-05-19 15:00] VITALS: BP 135/57
[2021-05-19 19:25] VITALS: BP 171/65
[2021-05-19] MEDS: ATORVASTATIN CALCIUM 40 MG TABLET. PO SCH (20:50)
[2021-05-19] MEDS: LACTOBACILLUS RHAMNOSUS GG 1 CAPSULE. PO SCH (20:50)
[2021-05-19 23:32] VITALS: BP 163/82
[2021-05-20 03:55] VITALS: BP 152/76
[2021-05-20] MEDS: CEFEPIME HCL IV Push 1 GM VIAL. IVP SCH ×3 (05:46→21:26)
[2021-05-20] MEDS: LEVOTHYROXINE 50 MCG TABLET PO SCH (05:46)
[2021-05-20 07:00] VITALS: BP 167/72
[2021-05-20] MEDS: IPRATRPIUM/ALBUTEROL 0.5/2.5MG 3 ML NEBU. NEB SCH ×5 (07:34→22:00)
--- NOTE | 2021-05-20 07:53 | PDOC ---
Infectious Disease Note Subjective: Subjective Patient is little more alert this morning Denies any pain Discussed with nursing staff Vital Signs: Vital Signs Vital Signs Date Time Temp Pulse Resp B/P (MAP) Pulse Ox O2 Delivery O2 Flow Rate FiO2 05/20/21 07:34 97 Nasal Cannula 2.0 05/20/21 03:55 98.9 72 21 152/76 (101) 98.9 Physical Exam: PHYSICAL EXAM General alert awake male in no acute distress appears comfortable in mittens HEENT normocephalic atraumatic oropharynx clear Neck supple Lungs clear anteriorly Heart S1-S2 Abdominal soft bowel sounds present nontender Alvares in place Extremities previous left BKA unremarkable, right lower extremity erythema and warmth anterior armijo. There is an ulcer distal TMA with no drainage Derm warm dry no generalized rash except for above Neuro alert awake male in no acute distress in mittens. Cannulize weakness Psych calm Medications: Inpatient Meds: Medications reviewed. Labs: Lab Laboratory Tests Test 05/19/21 12:11 05/19/21 17:07 05/19/21 21:07 Glucose (Fingerstick) 276 mg/dL (70-99) 86 mg/dL (70-99) 131 mg/dL (70-99) Objective: Assessment: Fever improving Leukocytosis resolved Encephalopathy CT head negative for acute process Chronic nonhealing right diabetic foot wound with history of TMA in the past -x ray neg for OM History of left BKA Diabetes mellitus with neuropathy Peripheral vascular disease Chronic renal insufficiency History of dementia and CVA senior living resident Chronic diastolic CHF Plan: Plan of Care Cont cefepime and Flagyl,was on zosyn Continue linezolid Change Alvares if not done already Local wound care Maintain aspiration precautions Prognosis very poor Discussed with nursing staff JESSA CALLAHAN MD May 20, 2021 07:53
[2021-05-20] MEDS: ASPIRIN ENTERIC COATED 81 MG TABLET.DR. PO SCH (07:57)
[2021-05-20] MEDS: LACTOBACILLUS RHAMNOSUS GG 1 CAPSULE. PO SCH ×2 (08:03→21:11)
[2021-05-20] MEDS: METOPROLOL SUCC 24HR ER 25 MG TAB.ER.24H. PO SCH (08:04)
[2021-05-20] MEDS: CLOPIDOGREL BISULFATE 75 MG TABLET PO SCH (08:04)
[2021-05-20] MEDS: SERTRALINE 50 MG TABLET. PO SCH (08:04)
[2021-05-20] MEDS: POLYVINYL ALCOHOL 1.4% OPHTH SOLUTION 15ML BOTTLE. OU SCH ×4 (08:04→21:11)
[2021-05-20] MEDS: INSULIN GLARGINE SYRINGE. SQ SCH ×2 (09:08→21:33)
[2021-05-20 10:34] LABS: CALCIUM 8.4 mg/dL (8.5-10.1); CREATININE 1.5 mg/dL (0.7-1.3); GFR 45.6; POTASSIUM 3.9 mmol/L (3.5-5.1)
--- NOTE | 2021-05-20 10:58 | PDOC ---
PROGRESS NOTES Date of Service: DATE: 05/20/21 TIME: 10:57 Chief Complaint Chief Complaint VTE Prophylaxis Ordered VTE Prophylaxis Devices: No VTE Pharmacological Prophylaxi: Yes Assessment/Plan Assessment/Plan IMPRESSION: Acute metabolic encephalopathy No acute intracranial hemorrhage. Stable multifocal remote infarcts involving the right frontal lobe, right te mporal lobe and left occipital lobe. 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 Right LE vascular compromise Marked left hydroureteronephrosis-Chronic with ureteral stricture Possible sundowning plan admit blood cultures emperic iv antibiotics, zosyn, renal dosing Nephrology consult cvc bed Cardiology consulted wound care nurse consulted mandeep qid CRP PROCALCITONIN Trend troponin i anticipate LOS > 3 DAYS 38 min pt exam, chart review, > 50% of time spent with exam, chart review, pt care coordination History of Present Illness History of Present Illness Identification/Chief Complaint Chief Complaint altered mentation, leukocytosis, hx wounds History of Present Illness History of Present Illness presented to ER from a retirement for altered mental status. Patient is alert but NOT oriented to self BUT poor historian. 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 Findings are stable WBC 13.7 . WITH LEFT SHIFT, blood culture done x 1 in ER 76-year-old male with history of left BKA in 2019 He has a history of a right TMA He has a very small right foot wound on the plantar surface overlying his fifth metatarsal head minimal erythema // right TMA He has been treated for several other medical issues, including acute infectious encephalopathy, HCAP, ABA, anemia. He is a poor historian, history obtaining is difficult. hx RECENT percutaneous arterial intervention on the left leg, The patient was unable to give me accurate history. Wound care consulted, NEPHROLOGY CONSULTED PO KAYEXYLATE 15 GM X 1 pending, Cardiology consulted. emperic iv zosyn dosed renally hx Right DFU with underlying peripheral artery disease, status post recent angiogram with balloon angioplasty MARCH 2021 Past Medical History Past Medical History Past Medical History Past Medical History: Anemia, CHF, CVA, Dementia, Diabetes-Type II, High Cholesterol, Hypertension, Hypothyroid, Renal Disease, Other Additional Past Medical Histor: CKD,OCD,BPH,PVD Past Surgical History: Other Additional Past Surgical Histo: RIGHT TOES, LEFT BKA Smoking Status: Unknown if ever smoked Alcohol Use: None FHX HTN Cardiovascular: CAD, CHF, HTN, Hyperlipidemia, Other Pulmonary: Bronchitis CENTRAL NERVOUS SYSTEM: CVA, Periperal neuropathy GI: Constipation Heme/Onc: Anemia NOS Psych: Anxiety, Addictions Musculoskeletal: Osteoarthritis Renal/: Chronic renal insuff, Benign prostatic enlarg. Endocrine: Diabetes, Hypothyroidism Past Surgical History Past Surgical History: Cataract Removal, Tonsillectomy, Other Family History Family History: Diabetes, High Cholestrol, Hypertension Social History Smoke: No ALCOHOL: none Drugs: None Current Problem List Problem List Problems Medical Problems: (1) Altered mental status Status: Acute Current Medications Current Medications Current Medications Ondansetron HCl (Zofran) 4 mg PRN Q8HRS PRN IV NAUSEA/VOMITING; Start 05/17/21 at 20:45; Stop 05/18/21 at 20:44 Morphine Sulfate (Morphine Sulfate) 2 mg PRN Q2HR PRN IV PAIN; Start 05/17/21 at 20:45; Stop 05/18/21 at 20:44 Acetaminophen (Tylenol) 650 mg PRN Q4HRS PRN PO FEVER > 100.3'F; Start 05/17/21 at 20:45; Stop 05/18/21 at 20:44 Lorazepam (Ativan Inj) 1 mg 1X ONCE IVP ; Start 05/17/21 at 21:30; Stop 05/17/21 at 21:31; Status DC Aspirin (Ecotrin) 81 mg DAILYWBKFT PO ; Start 05/18/21 at 08:00 Atorvastatin Calcium (Lipitor) 40 mg HS PO ; Start 05/18/21 at 21:00 Clopidogrel Bisulfate (Plavix) 75 mg DAILYWBKFT PO ; Start 05/18/21 at 08:00 Docusate Sodium (Colace) 100 mg PRN DAILY PRN PO HARD STOOLS; Start 05/17/21 at 23:15 Levothyroxine Sodium (Synthroid) 50 mcg DAILY06 PO Last administered on 05/18/21at 06:01; Start 05/18/21 at 06:00 Metoprolol Succinate (Toprol Xl) 25 mg DAILY PO ; Start 05/18/21 at 09:00 Glycerin/ Hypromellose/ Polyethylene (Artificial Tears) 1 drop QID OU ; Start 05/18/21 at 09:00 Insulin Human Lispro (HumaLOG) 5 units DAILYWLUN SQ ; Start 05/18/21 at 12:00 Insulin Glargine (Lantus Syringe) 15 unit BID SQ ; Start 05/18/21 at 09:00 Sennosides (Senna) 8.6 mg PRN BID PRN PO CONSTIPATION 1ST CHOICE; Start 05/17/21 at 23:30 Sertraline HCl (Zoloft) 125 mg DAILY PO ; Start 05/18/21 at 09:00 Furosemide (Lasix) 20 mg 1X ONCE IVP Last administered on 05/18/21at 00:36; Start 05/17/21 at 23:45; Stop 05/17/21 at 23:46; Status DC Active Scripts Active Culturelle (Lactobacillus Rhamnosus Gg) 1 Each Cap.sprink 1 Cap PO BID 30 Days Dok (Docusate Sodium) 100 Mg Capsule 100 Mg PO PRN DAILY PRN 30 Days Acetaminophen 325 Mg Tablet 650 Mg PO PRN Q4HRS PRN 30 Days Furosemide 40 Mg Tablet 1 Tab PO PRN DAILY PRN 30 Days Clopidogrel (Clopidogrel Bisulfate) 75 Mg Tablet 75 Mg PO DAILYWBKFT 30 Days Aspirin Ec (Aspirin) 81 Mg Tablet.dr 81 Mg PO DAILYWBKFT 30 Days Reported Lisinopril 20 Mg Tablet 20 Mg PO DAILY Zoloft (Sertraline Hcl) 100 Mg Tablet 125 Mg PO DAILY Polytrim Eye Drops (Polymyxin B Sulf/Trimethoprim) 10 Ml Drops 1 Drop LEFTEYE BID Novolog (Insulin Aspart) 100 Unit/1 Ml Cartridge 5 Unit SQ DAILYWLUN Refresh Optive Eye Drops (Carboxymethylcellulos/Glycerin) 15 Ml Drops 1 Drop LEFTEYE QID Senna (Sennosides) 8.8 Mg/5 Ml Syrup 8.8 Mg PO PRN Q12HR PRN Melatonin 3 Mg Tablet 2 Tab PO QHS Levemir (Insulin Detemir) 100 Unit/1 Ml Vial 15 Unit SQ BID [erythromycin oint] OS BID Potassium Chloride (Potassium Chloride) 20 Meq Tablet.er 20 Meq PO DAILY Metoprolol Succinate ( Xl ) (Metoprolol Succinate) 25 Mg Tab.er.24h 25 Mg PO DAILY Lipitor (Atorvastatin Calcium) 40 Mg Tablet 40 Mg PO HS Synthroid (Levothyroxine Sodium) 50 Mcg Tablet 50 Mcg PO DAILYAC Allergies Allergies: Coded Allergies: No Known Medication Allergies (Verified Allergy, Unknown, 03/12/21) ROS Review of System poor appetite General: YES: Fatigue, Malaise, Appetite; No: Chills, Night Sweats, Other PSYCHOLOGICAL ROS: YES: Memory difficulties Eyes: Yes Decreased vision; No Blurry vision, No Double vision, No Dry eyes, No Excessive tearing, No Eye Pain, No Itchy Eyes, No Loss of vision, No Photophobia, No Scotomata, No Uses contacts, No Uses glasses, No Other HEENT: No: Heacaches, Visual Changes, Hearing change, Nasal congestion, Nasal discharge, Oral lesions, Sinus pain, Sore Throat, Epistaxis, Sneezing, Snoring, Tinnitus, Vertigo, Vocal changes, Other ALLERGY AND IMMUNOLOGY: No: Hives, Insect Bite Sensitivity, Itchy/Watery Eyes, Nasal Congestion, Post Nasal Drip, Seasonal Allergies, Other Hematological and Lymphatic: No: Bleeding Problems, Blood Clots, Blood Transfusions, Brusing, Night Sweats, Pallor, Swollen Lymph Nodes, Other Respiratory: No: Cough, Hemoptysis, Orthopnea, Pleuritic Pain, Shortness of breath, SOB with excertion, Sputum Changes, Stridor, Tachypnea, Wheezing, Other Musculoskeletal: Yes Joint Stiffness Neurological: Yes Gait Disturbance Skin: Yes Dry Skin, Yes Skin Lesion Changes 7-18 Acute metabolic encephalopathy, slow to improve No acute intracranial hemorrhage. 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 Right LE vascular compromise Marked left hydroureteronephrosis-Chronic with ureteral stricture Possible sundowning admit blood cultures emperic iv antibiotics, zosyn, renal dosing Nephrology consult cvc bed Cardiology consulted wound care nurse consulted duonebs qid CRP PROCALCITONIN Trend troponin i DC Zosyn IV empiric cefepime and Flagyl Continue linezolid Change Alvares if not done already Right foot x-ray anticipate LOS > 4 DAYS 27 min pt exam, chart review, > 50% of time spent with exam, chart review, pt care coordination 05-19 Acute metabolic encephalopathy No acute intracranial hemorrhage. 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 Right LE vascular compromise Marked left hydroureteronephrosis-Chronic with ureteral stricture Possible sundowning admit blood cultures emperic iv antibiotics, zosyn, renal dosing Nephrology consult cvc bed Cardiology consulted wound care nurse consulted duonebs qid CRP PROCALCITONIN Trend troponin i DC Zosyn IV empiric cefepime and Flagyl Continue linezolid Change Alvares if not done already Right foot x-ray anticipate LOS > 3 DAYS 28 min pt exam, chart review, > 50% of time spent with exam, chart review, pt care coordination Vitals Vitals Vital Signs Date Time Temp Pulse Resp B/P (MAP) Pulse Ox O2 Delivery O2 Flow Rate FiO2 05/20/21 08:04 71 167/72 05/20/21 08:00 Room Air 05/20/21 07:34 97 2.0 05/20/21 07:00 98.7 20 98.7 Physical Exam Physical Exam General alert awake male in no acute distress appears comfortable HEENT normocephalic atraumatic oropharynx clear Neck supple Lungs clear anteriorly Heart S1-S2 Abdominal soft bowel sounds present nontender Alvares in place Extremities previous left BKA unremarkable, right lower extremity erythema and warmth anterior armijo. There is an ulcer distal TMA with no drainage Derm warm dry no generalized rash except for above Neuro alert awake male in no acute distress / weakness Psych calm General: Cooperative, No acute distress Heart: Regular rate Lungs: Clear Abdomen: Normal bowel sounds, Soft, No tenderness Extremities: No clubbing, No cyanosis Labs LABS Signed PATIENT: EVE DEMPSEYCCOUNT: [id number] : 1945 LOCATION: [address] [place] [address] AGE: 76 SEX: M EXAM STATUS: ADM IN ORD. PHYSICIAN: JESSA CALLAHAN MD REASON: R/O OM , HAD TMA PREVIOUSLY PROCEDURE: FOOT RIGHT 3V EXAM: XR CHEST 1V, XR FOOT_RIGHT 3 VIEWS 05/19/2021 9:55 AM CLINICAL INDICATION: Sepsis, possible osteomyelitis COMPARISON: Chest radiograph 05/17/2021 FINDINGS: Chest radiograph: One view obtained. The heart is normal in size. Lungs are adequately expanded. Mild bibasilar opacities are unchanged, likely atelectasis. No pleural effusion or pneumothorax. Right foot: 3 views obtained. There is are changes of transmetatarsal amputation of the forefoot. There is no evidence of new osseous destruction. Minimal soft tissue gas or small ulcer at the plantar distal aspect of the stump. Distal tibial and fibular hardware is partially visualized. IMPRESSION: 1. Chest: Unchanged mild bibasilar opacities, likely. 2. Right foot: Surgical changes of transmetatarsal amputation. No radiographic evidence of osteomyelitis. Probable small soft tissue ulcer at the plantar distal aspect of the stump. Electronically signed by: Jennifer Escobar MD (05/19/2021 2:35 PM) [id number] DICTATED and SIGNED BY: JENNIFER ESCOBAR MD DATE: 05/19/21 [id number] Laboratory Tests Test 05/19/21 12:11 05/19/21 17:07 05/19/21 21:07 05/20/21 07:52 Glucose (Fingerstick) 276 mg/dL (70-99) 86 mg/dL (70-99) 131 mg/dL (70-99) 91 mg/dL (70-99) Test 05/20/21 09:20 Sodium Level 143 mmol/L (136-145) Potassium Level 3.9 mmol/L (3.5-5.1) Chloride Level 107 mmol/L (98-107) Carbon Dioxide Level 27 mmol/L (21-32) Anion Gap 9 (6-14) Blood Urea Nitrogen 33 mg/dL (8-26) Creatinine 1.5 mg/dL (0.7-1.3) Estimated GFR (Cockcroft-Gault) 45.6 Glucose Level 134 mg/dL (70-99) Calcium Level 8.4 mg/dL (8.5-10.1) Assessment and Plan Assessmemt and Plan Problems Medical Problems: (1) Altered mental status Status: Acute Comment Review of Relevant I have reviewed the following items magalie (where applicable) has been applied. Labs Laboratory Tests Test 05/18/21 11:26 05/18/21 16:44 05/18/21 20:47 05/19/21 06:55 Glucose (Fingerstick) 332 mg/dL (70-99) 191 mg/dL (70-99) 356 mg/dL (70-99) White Blood Count 11.0 x10^3/uL (4.0-11.0) Red Blood Count 3.83 x10^6/uL (4.30-5.70) Hemoglobin 11.7 g/dL (13.0-17.5) Hematocrit 35.3 % (39.0-53.0) Mean Corpuscular Volume 92 fL (79-100) Mean Corpuscular Hemoglobin 31 pg (25-35) Mean Corpuscular Hemoglobin Concent 33 g/dL (31-37) Red Cell Distribution Width 14.1 % (11.5-14.5) Platelet Count 176 x10^3/uL (140-400) Neutrophils (%) (Auto) 85 % (31-73) Lymphocytes (%) (Auto) 4 % (24-48) Monocytes (%) (Auto) 11 % (0-9) Eosinophils (%) (Auto) 0 % (0-3) Basophils (%) (Auto) 0 % (0-3) Neutrophils # (Auto) 9.3 x10^3/uL (1.8-7.7) Lymphocytes # (Auto) 0.4 x10^3/uL (1.0-4.8) Monocytes # (Auto) 1.2 x10^3/uL (0.0-1.1) Eosinophils # (Auto) 0.0 x10^3/uL (0.0-0.7) Basophils # (Auto) 0.0 x10^3/uL (0.0-0.2) Sodium Level 141 mmol/L (136-145) Potassium Level 3.7 mmol/L (3.5-5.1) Chloride Level 107 mmol/L (98-107) Carbon Dioxide Level 24 mmol/L (21-32) Anion Gap 10 (6-14) Blood Urea Nitrogen 46 mg/dL (8-26) Creatinine 2.0 mg/dL (0.7-1.3) Estimated GFR (Cockcroft-Gault) 32.7 Glucose Level 211 mg/dL (70-99) Calcium Level 8.1 mg/dL (8.5-10.1) Test 05/19/21 07:35 05/19/21 12:11 05/19/21 17:07 05/19/21 21:07 Glucose (Fingerstick) 192 mg/dL (70-99) 276 mg/dL (70-99) 86 mg/dL (70-99) 131 mg/dL (70-99) Test 05/20/21 07:52 05/20/21 09:20 Glucose (Fingerstick) 91 mg/dL (70-99) Sodium Level 143 mmol/L (136-145) Potassium Level 3.9 mmol/L (3.5-5.1) Chloride Level 107 mmol/L (98-107) Carbon Dioxide Level 27 mmol/L (21-32) Anion Gap 9 (6-14) Blood Urea Nitrogen 33 mg/dL (8-26) Creatinine 1.5 mg/dL (0.7-1.3) Estimated GFR (Cockcroft-Gault) 45.6 Glucose Level 134 mg/dL (70-99) Calcium Level 8.4 mg/dL (8.5-10.1) Laboratory Tests Test 05/19/21 12:11 05/19/21 17:07 05/19/21 21:07 05/20/21 07:52 Glucose (Fingerstick) 276 mg/dL (70-99) 86 mg/dL (70-99) 131 mg/dL (70-99) 91 mg/dL (70-99) Test 05/20/21 09:20 Sodium Level 143 mmol/L (136-145) Potassium Level 3.9 mmol/L (3.5-5.1) Chloride Level 107 mmol/L (98-107) Carbon Dioxide Level 27 mmol/L (21-32) Anion Gap 9 (6-14) Blood Urea Nitrogen 33 mg/dL (8-26) Creatinine 1.5 mg/dL (0.7-1.3) Estimated GFR (Cockcroft-Gault) 45.6 Glucose Level 134 mg/dL (70-99) Calcium Level 8.4 mg/dL (8.5-10.1) Microbiology 05/18/21 Blood Culture - Preliminary, Resulted NO GROWTH AFTER 2 DAYS Medications Current Medications Ondansetron HCl (Zofran) 4 mg PRN Q8HRS PRN IV NAUSEA/VOMITING; Start 05/17/21 at 20:45; Stop 05/18/21 at 20:44; Status DC Morphine Sulfate (Morphine Sulfate) 2 mg PRN Q2HR PRN IV PAIN; Start 05/17/21 at 20:45; Stop 05/18/21 at 20:44; Status DC Acetaminophen (Tylenol) 650 mg PRN Q4HRS PRN PO FEVER > 100.3'F; Start 05/17/21 at 20:45; Stop 05/18/21 at 20:44; Status DC Lorazepam (Ativan Inj) 1 mg 1X ONCE IVP ; Start 05/17/21 at 21:30; Stop 05/17/21 at 21:31; Status DC Aspirin (Ecotrin) 81 mg DAILYWBKFT PO Last administered on 05/20/21at 07:57; Start 05/18/21 at 08:00 Atorvastatin Calcium (Lipitor) 40 mg HS PO Last administered on 05/19/21at 20:50; Start 05/18/21 at 21:00 Clopidogrel Bisulfate (Plavix) 75 mg DAILYWBKFT PO Last administered on 05/20/21at 08:04; Start 05/18/21 at 08:00 Docusate Sodium (Colace) 100 mg PRN DAILY PRN PO HARD STOOLS; Start 05/17/21 at 23:15; Status Cancel Levothyroxine Sodium (Synthroid) 50 mcg DAILY06 PO Last administered on 05/20/21at 05:46; Start 05/18/21 at 06:00 Metoprolol Succinate (Toprol Xl) 25 mg DAILY PO Last administered on 05/20/21at 08:04; Start 05/18/21 at 09:00 Glycerin/ Hypromellose/ Polyethylene (Artificial Tears) 1 drop QID OU Last administered on 05/20/21at 08:04; Start 05/18/21 at 09:00 Insulin Human Lispro (HumaLOG) 5 units DAILYWLUN SQ Last administered on 05/19/21at 12:50; Start 05/18/21 at 12:00 Insulin Glargine (Lantus Syringe) 15 unit BID SQ Last administered on 05/20/21at 09:08; Start 05/18/21 at 09:00 Sennosides (Senna) 8.6 mg PRN BID PRN PO CONSTIPATION 1ST CHOICE; Start 05/17/21 at 23:30 Sertraline HCl (Zoloft) 125 mg DAILY PO Last administered on 05/20/21at 08:04; Start 05/18/21 at 09:00 Furosemide (Lasix) 20 mg 1X ONCE IVP Last administered on 05/18/21at 00:36; Start 05/17/21 at 23:45; Stop 05/17/21 at 23:46; Status DC Piperacillin Sod/ Tazobactam Sod (Zosyn Per Pharmacy) 1 each PRN DAILY PRN MC SEE COMMENTS; Start 05/18/21 at 11:15; Stop 05/19/21 at 10:41; Status DC Piperacillin Sod/ Tazobactam Sod 2.25 gm/Sodium Chloride 50 ml @ 100 mls/hr Q6HRS IV Last administered on 05/19/21at 05:38; Start 05/18/21 at 12:00; Stop 05/19/21 at 10:39; Status DC Sodium Polystyrene Sulfonate (Kayexalate) 15 gm 1X ONCE PO Last administered on 05/18/21at 12:00; Start 05/18/21 at 11:30; Stop 05/18/21 at 11:31; Status DC Sodium Chloride (Normal Saline Flush) 3 ml QSHIFT PRN IV AFTER MEDS AND BLOOD DRAWS; Start 05/18/21 at 12:00 Sodium Chloride 1,000 ml @ 65 mls/hr [id number] IV Last administered on 05/19/21at 20:50; Start 05/18/21 at 12:00 Ondansetron HCl (Zofran) 4 mg PRN Q4HRS PRN IV NAUSEA/VOMITING; Start 05/18/21 at 12:00 Acetaminophen (Tylenol) 650 mg PRN Q4HRS PRN PO TEMP OVER 100.4F OR MILD PAIN; Start 05/18/21 at 12:00 Acetaminophen (Tylenol Supp) 650 mg PRN Q4HRS PRN VA TEMP OVER 100.4F OR MILD PAIN; Start 05/18/21 at 12:00 Sodium Monofluorophosphate (Fleet Adult) 133 ml PRN DAILY PRN VA CONSTIPATION; Start 05/18/21 at 12:00 Docusate Sodium (Colace) 100 mg PRN BID PRN PO HARD STOOLS; Start 05/18/21 at 12:00 Albuterol/ Ipratropium (Duoneb) 3 ml Q4HRS W/A NEB Last administered on at 07:34; Start 05/18/21 at 14:00 Guaifenesin (Robitussin) 200 mg PRN Q4HRS PRN PO COUGH; Start 05/18/21 at 12:00 Enoxaparin Sodium (Lovenox 40mg Syringe) 40 mg Q24H SQ Last administered on 05/19/21at 10:44; Start 05/18/21 at 12:00 Linezolid/Dextrose 300 ml @ 300 mls/hr Q12HR IV Last administered on 05/20/21at 08:06; Start 05/19/21 at 11:00 Cefepime HCl (Maxipime) 1 gm Q8HRS IVP Last administered on 05/20/21at 05:46; Start 05/19/21 at 14:00 Metronidazole 100 ml @ 100 mls/hr Q12HR IV Last administered on 05/20/21at 07:57; Start 05/19/21 at 21:00 Lactobacillus Rhamnosus (Culturelle) 1 cap BID PO Last administered on 05/20/21at 08:03; Start 05/19/21 at 21:00 Active Scripts Active Culturelle (Lactobacillus Rhamnosus Gg) 1 Each Cap.sprink 1 Cap PO BID 30 Days Dok (Docusate Sodium) 100 Mg Capsule 100 Mg PO PRN DAILY PRN 30 Days Acetaminophen 325 Mg Tablet 650 Mg PO PRN Q4HRS PRN 30 Days Furosemide 40 Mg Tablet 1 Tab PO PRN DAILY PRN 30 Days Clopidogrel (Clopidogrel Bisulfate) 75 Mg Tablet 75 Mg PO DAILYWBKFT 30 Days Aspirin Ec (Aspirin) 81 Mg Tablet.dr 81 Mg PO DAILYWBKFT 30 Days Reported Lisinopril 20 Mg Tablet 20 Mg PO DAILY Zoloft (Sertraline Hcl) 100 Mg Tablet 125 Mg PO DAILY Polytrim Eye Drops (Polymyxin B Sulf/Trimethoprim) 10 Ml Drops 1 Drop LEFTEYE BID Novolog (Insulin Aspart) 100 Unit/1 Ml Cartridge 5 Unit SQ DAILYWLUN Refresh Optive Eye Drops (Carboxymethylcellulos/Glycerin) 15 Ml Drops 1 Drop LEFTEYE QID Senna (Sennosides) 8.8 Mg/5 Ml Syrup 8.8 Mg PO PRN Q12HR PRN Melatonin 3 Mg Tablet 2 Tab PO QHS Levemir (Insulin Detemir) 100 Unit/1 Ml Vial 15 Unit SQ BID [erythromycin oint] OS BID Potassium Chloride (Potassium Chloride) 20 Meq Tablet.er 20 Meq PO DAILY Metoprolol Succinate ( Xl ) (Metoprolol Succinate) 25 Mg Tab.er.24h 25 Mg PO DAILY Lipitor (Atorvastatin Calcium) 40 Mg Tablet 40 Mg PO HS Synthroid (Levothyroxine Sodium) 50 Mcg Tablet 50 Mcg PO DAILYAC Vitals/I & O Vital Sign - Last 24 Hours 05/19/21 05/19/21 05/19/21 05/19/21 11:00 12:33 15:00 15:30 Temp 98.9 98.0 98.9 98.0 Pulse 78 84 Resp 20 20 B/P (MAP) 135/57 (83) 135/57 (83) Pulse Ox 100 97 94 97 O2 Delivery Nasal Cannula Nasal Cannula Nasal Cannula Nasal Cannula O2 Flow Rate 2.0 2.0 2.0 2.0 05/19/21 05/19/21 05/19/21 05/20/21 19:25 19:33 23:32 03:55 Temp 99.4 98.7 98.9 99.4 98.7 98.9 Pulse 87 82 72 Resp 22 22 21 B/P (MAP) 171/65 (100) 163/82 (109) 152/76 (101) Pulse Ox 96 95 96 O2 Delivery Nasal Cannula Nasal Cannula Nasal Cannula Nasal Cannula O2 Flow Rate 2.0 2.0 2.0 2.0 05/20/21 05/20/21 05/20/21 05/20/21 07:00 07:34 08:00 08:04 Temp 98.7 98.7 Pulse 76 71 Resp 20 B/P (MAP) 167/72 (103) 167/72 Pulse Ox 98 97 O2 Delivery Nasal Cannula Nasal Cannula Room Air O2 Flow Rate 2.0 2.0 Intake and Output 05/19/21 05/19/21 05/20/21 15:00 23:00 07:00 Intake Total 660 ml 220 ml 100 ml Output Total 500 ml 800 ml Balance 660 ml -280 ml -700 ml Justicifation of Admission Dx: Justifications for Admission: Justification of Admission Dx: Yes SUSAN COSTA MD May 20, 2021 10:58
[2021-05-20 11:00] VITALS: BP 155/69
--- NOTE | 2021-05-20 11:28 | PDOC ---
DATE OF SERVICE DATE: 05/20/21 TIME: 11:27 SUBJECTIVE ROS More alert, stable, No N/V OBJECTIVE Vital Signs Vital Signs Date Time Temp Pulse Resp B/P (MAP) Pulse Ox O2 Delivery O2 Flow Rate FiO2 05/20/21 11:01 97 Nasal Cannula 2.0 05/20/21 08:04 71 167/72 05/20/21 07:00 98.7 20 98.7 I & 0 Intake and Output 05/20/21 07:00 Intake Total 980 ml Output Total 1300 ml Balance -320 ml Intake Oral 680 ml IV Total 300 ml Output Urine Total 1300 ml PHYSICAL EXAM Physical Exam GENERAL:NAD HEENT: Om moist NECK: Supple. LUNGS: Clear to auscultation.Non labored HEART: Normal S1, S2. ABDOMEN: Obese, soft, nontender with bowel sounds present. EXTREMITIES: Previous left BKA SKIN: Warm to touch. No signs of generalized rash. NEUROLOGIC: Alert, answering simple questions, poor historian. No bui DIAGNOSIS/ASSESSMENT Assessment & Plan ABA - Vasomotor , resolved to his baseline ,Non Oliguric, maintain Hydration, avoid nephrotoxins, supportive care CKD STAGE 3 b - baseline Cr ~2.0, No show for his follow up appts as OP Marked left hydroureteronephrosis-Chronic with ureteral stricture (in the past pt had refused Urology consult) CT - point of transition is in the ureter at the pelvic brim, no focal abn ormality such as a calculus, focal stricture cannot be excluded. The hydronephrosis appears long-standing as there is severe cortical thinning of the left kidney. 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 Diabetes mellitus with neuropathy Peripheral vascular disease History of dementia and CVA Chronic diastolic CHF COMMENT/RELEVANT DATA Meds Current Medications Medications (Trade) Dose Ordered Sig/Zeeshan Start Time Stop Time Status Last Admin Dose Admin Acetaminophen (Tylenol Supp) 650 mg PRN Q4HRS PRN 05/18/21 12:00 Acetaminophen (Tylenol) 650 mg PRN Q4HRS PRN 05/18/21 12:00 Albuterol/ Ipratropium (Duoneb) 3 ml Q4HRS W/A 05/18/21 14:00 05/20/21 11:01 3 ML Aspirin (Ecotrin) 81 mg DAILYWBKFT 05/18/21 08:00 05/20/21 07:57 81 MG Atorvastatin Calcium (Lipitor) 40 mg HS 05/18/21 21:00 05/19/21 20:50 40 MG Cefepime HCl (Maxipime) 1 gm Q8HRS 05/19/21 14:00 05/20/21 05:46 1 GM Clopidogrel Bisulfate (Plavix) 75 mg DAILYWBKFT 05/18/21 08:00 05/20/21 08:04 75 MG Docusate Sodium (Colace) 100 mg PRN BID PRN 05/18/21 12:00 Enoxaparin Sodium (Lovenox 40mg Syringe) 40 mg Q24H 05/18/21 12:00 05/19/21 10:44 40 MG Furosemide (Lasix) 20 mg 1X ONCE 05/17/21 23:45 05/17/21 23:46 DC 05/18/21 00:36 20 MG Glycerin/ Hypromellose/ Polyethylene (Artificial Tears) 1 drop QID 05/18/21 09:00 05/20/21 08:04 1 DROP Guaifenesin (Robitussin) 200 mg PRN Q4HRS PRN 05/18/21 12:00 Insulin Glargine (Lantus Syringe) 15 unit BID 05/18/21 09:00 05/20/21 09:08 15 UNIT Insulin Human Lispro (HumaLOG) 5 units DAILYWLUN 05/18/21 12:00 05/19/21 12:50 5 UNITS Lactobacillus Rhamnosus (Culturelle) 1 cap BID 05/19/21 21:00 05/20/21 08:03 1 CAP Levothyroxine Sodium (Synthroid) 50 mcg DAILY06 05/18/21 06:00 05/20/21 05:46 50 MCG Linezolid/Dextrose 300 ml @ 300 mls/hr Q12HR 05/19/21 11:00 05/20/21 08:06 300 MLS/HR Lorazepam (Ativan Inj) 1 mg 1X ONCE 05/17/21 21:30 05/17/21 21:31 DC Metoprolol Succinate (Toprol Xl) 25 mg DAILY 05/18/21 09:00 05/20/21 08:04 25 MG Metronidazole 100 ml @ 100 mls/hr Q12HR 05/19/21 21:00 05/20/21 07:57 100 MLS/HR Morphine Sulfate (Morphine Sulfate) 2 mg PRN Q2HR PRN 05/17/21 20:45 05/18/21 20:44 DC Ondansetron HCl (Zofran) 4 mg PRN Q4HRS PRN 05/18/21 12:00 Piperacillin Sod/ Tazobactam Sod (Zosyn Per Pharmacy) 1 each PRN DAILY PRN 05/18/21 11:15 05/19/21 10:41 DC Piperacillin Sod/ Tazobactam Sod 2.25 gm/Sodium Chloride 50 ml @ 100 mls/hr Q6HRS 05/18/21 12:00 05/19/21 10:39 DC 05/19/21 05:38 100 MLS/HR Sennosides (Senna) 8.6 mg PRN BID PRN 05/17/21 23:30 Sertraline HCl (Zoloft) 125 mg DAILY 05/18/21 09:00 05/20/21 08:04 125 MG Sodium Monofluorophosphate (Fleet Adult) 133 ml PRN DAILY PRN 05/18/21 12:00 Sodium Polystyrene Sulfonate (Kayexalate) 15 gm 1X ONCE 05/18/21 11:30 05/18/21 11:31 DC 05/18/21 12:00 15 GM Sodium Chloride 1,000 ml @ 65 mls/hr [id number] 05/18/21 12:00 05/19/21 20:50 65 MLS/HR Sodium Chloride (Normal Saline Flush) 3 ml QSHIFT PRN 05/18/21 12:00 Lab Laboratory Tests Test 05/19/21 12:11 05/19/21 17:07 05/19/21 21:07 05/20/21 07:52 Glucose (Fingerstick) 276 mg/dL (70-99) 86 mg/dL (70-99) 131 mg/dL (70-99) 91 mg/dL (70-99) Test 05/20/21 09:20 Sodium Level 143 mmol/L (136-145) Potassium Level 3.9 mmol/L (3.5-5.1) Chloride Level 107 mmol/L (98-107) Carbon Dioxide Level 27 mmol/L (21-32) Anion Gap 9 (6-14) Blood Urea Nitrogen 33 mg/dL (8-26) Creatinine 1.5 mg/dL (0.7-1.3) Estimated GFR (Cockcroft-Gault) 45.6 Glucose Level 134 mg/dL (70-99) Calcium Level 8.4 mg/dL (8.5-10.1) Results All relevant outside records, renal labs, imaging studies, telemetry/EKG's were reviewed. Justicifation of Admission Dx: Justifications for Admission: Justification of Admission Dx: Yes RICHIE GONZALEZ MD May 20, 2021 11:28
[2021-05-20] MEDS: IV NORMAL SALINE 1000ML BAG 1,000 ML IV SCH (12:18)
[2021-05-20] MEDS: ENOXAPARIN 40 MG/0.4 ML SYRINGE. SQ SCH (12:19)
[2021-05-20] MEDS: INSULIN LISPRO 300 UNITS/3 ML VIAL. SQ SCH (12:45)
[2021-05-20 15:00] VITALS: BP 138/64
--- NOTE | 2021-05-20 15:46 | PDOC ---
PROGRESS NOTES Date of Service DATE: 05/20/21 TIME: 15:44 Subjective Subjective Patient seen and examined Objective Objective Vital Signs Date Time Temp Pulse Resp B/P (MAP) Pulse Ox O2 Delivery O2 Flow Rate FiO2 05/20/21 15:10 Nasal Cannula 2.0 05/20/21 11:01 97 05/20/21 11:00 97.5 78 20 155/69 (97) 97.5 Intake and Output 05/20/21 07:00 Intake Total 980 ml Output Total 1300 ml Balance -320 ml Intake Oral 680 ml IV Total 300 ml Output Urine Total 1300 ml Physical Exam Abdomen: Normal bowel sounds Heart: Regular rate General: Other (Mildly more alert today.) Lungs: Other (Mildly decreased breath sounds) Assessment Assessment Problems Medical Problems: (1) Altered mental status Status: Acute 1. Decreased level of consciousness. CT head scan shows no acute changes but does show old infarcts. Lab work as above is significant for mild elevation in potassium as well as glucose. The patient is mildly more alert today. He is in no acute distress. He does have a history of a CVA and dementia. Would continuing monitoring and present treatment. 2. Chronic kidney disease. Creatinine of 1.6. Potassium elevated at 5.7. Being treated and followed by nephrology.. 3. Diastolic heart failure. Echo as outlined above showed normal LV function in November of this year. BNP elevated at 3078. We will continue present treatment with monitoring of lab. 4. Hypertension. Initially significantly elevated. Now improved. Continue present medications and monitoring. 5. Peripheral vascular disease. Status post left BKA. Status post balloon angioplasty of the right common femoral artery. Has been followed by the [facility] surgery service. Comment Review of Relevant I have reviewed the following items magalie (where applicable) has been applied. Labs Laboratory Tests Test 05/18/21 16:44 05/18/21 20:47 05/19/21 06:55 05/19/21 07:35 Glucose (Fingerstick) 191 mg/dL (70-99) 356 mg/dL (70-99) 192 mg/dL (70-99) White Blood Count 11.0 x10^3/uL (4.0-11.0) Red Blood Count 3.83 x10^6/uL (4.30-5.70) Hemoglobin 11.7 g/dL (13.0-17.5) Hematocrit 35.3 % (39.0-53.0) Mean Corpuscular Volume 92 fL (79-100) Mean Corpuscular Hemoglobin 31 pg (25-35) Mean Corpuscular Hemoglobin Concent 33 g/dL (31-37) Red Cell Distribution Width 14.1 % (11.5-14.5) Platelet Count 176 x10^3/uL (140-400) Neutrophils (%) (Auto) 85 % (31-73) Lymphocytes (%) (Auto) 4 % (24-48) Monocytes (%) (Auto) 11 % (0-9) Eosinophils (%) (Auto) 0 % (0-3) Basophils (%) (Auto) 0 % (0-3) Neutrophils # (Auto) 9.3 x10^3/uL (1.8-7.7) Lymphocytes # (Auto) 0.4 x10^3/uL (1.0-4.8) Monocytes # (Auto) 1.2 x10^3/uL (0.0-1.1) Eosinophils # (Auto) 0.0 x10^3/uL (0.0-0.7) Basophils # (Auto) 0.0 x10^3/uL (0.0-0.2) Sodium Level 141 mmol/L (136-145) Potassium Level 3.7 mmol/L (3.5-5.1) Chloride Level 107 mmol/L (98-107) Carbon Dioxide Level 24 mmol/L (21-32) Anion Gap 10 (6-14) Blood Urea Nitrogen 46 mg/dL (8-26) Creatinine 2.0 mg/dL (0.7-1.3) Estimated GFR (Cockcroft-Gault) 32.7 Glucose Level 211 mg/dL (70-99) Calcium Level 8.1 mg/dL (8.5-10.1) Test 05/19/21 12:00 05/19/21 12:11 05/19/21 17:07 05/19/21 21:07 Nasal Screen MRSA (PCR) Positive (NEGATIVE) Glucose (Fingerstick) 276 mg/dL (70-99) 86 mg/dL (70-99) 131 mg/dL (70-99) Test 05/20/21 07:52 05/20/21 09:20 05/20/21 12:01 Glucose (Fingerstick) 91 mg/dL (70-99) 231 mg/dL (70-99) Sodium Level 143 mmol/L (136-145) Potassium Level 3.9 mmol/L (3.5-5.1) Chloride Level 107 mmol/L (98-107) Carbon Dioxide Level 27 mmol/L (21-32) Anion Gap 9 (6-14) Blood Urea Nitrogen 33 mg/dL (8-26) Creatinine 1.5 mg/dL (0.7-1.3) Estimated GFR (Cockcroft-Gault) 45.6 Glucose Level 134 mg/dL (70-99) Calcium Level 8.4 mg/dL (8.5-10.1) Laboratory Tests Test 05/19/21 17:07 05/19/21 21:07 05/20/21 07:52 05/20/21 09:20 Glucose (Fingerstick) 86 mg/dL (70-99) 131 mg/dL (70-99) 91 mg/dL (70-99) Sodium Level 143 mmol/L (136-145) Potassium Level 3.9 mmol/L (3.5-5.1) Chloride Level 107 mmol/L (98-107) Carbon Dioxide Level 27 mmol/L (21-32) Anion Gap 9 (6-14) Blood Urea Nitrogen 33 mg/dL (8-26) Creatinine 1.5 mg/dL (0.7-1.3) Estimated GFR (Cockcroft-Gault) 45.6 Glucose Level 134 mg/dL (70-99) Calcium Level 8.4 mg/dL (8.5-10.1) Test 05/20/21 12:01 Glucose (Fingerstick) 231 mg/dL (70-99) Microbiology 05/18/21 Blood Culture - Preliminary, Resulted NO GROWTH AFTER 2 DAYS Medications Current Medications Ondansetron HCl (Zofran) 4 mg PRN Q8HRS PRN IV NAUSEA/VOMITING; Start 05/17/21 at 20:45; Stop 05/18/21 at 20:44; Status DC Morphine Sulfate (Morphine Sulfate) 2 mg PRN Q2HR PRN IV PAIN; Start 05/17/21 at 20:45; Stop 05/18/21 at 20:44; Status DC Acetaminophen (Tylenol) 650 mg PRN Q4HRS PRN PO FEVER > 100.3'F; Start 05/17/21 at 20:45; Stop 05/18/21 at 20:44; Status DC Lorazepam (Ativan Inj) 1 mg 1X ONCE IVP ; Start 05/17/21 at 21:30; Stop 05/17/21 at 21:31; Status DC Aspirin (Ecotrin) 81 mg DAILYWBKFT PO Last administered on 05/20/21at 07:57; Start 05/18/21 at 08:00 Atorvastatin Calcium (Lipitor) 40 mg HS PO Last administered on 05/19/21at 20:50; Start 05/18/21 at 21:00 Clopidogrel Bisulfate (Plavix) 75 mg DAILYWBKFT PO Last administered on 05/20/21at 08:04; Start 05/18/21 at 08:00 Docusate Sodium (Colace) 100 mg PRN DAILY PRN PO HARD STOOLS; Start 05/17/21 at 23:15; Status Cancel Levothyroxine Sodium (Synthroid) 50 mcg DAILY06 PO Last administered on 05/20/21at 05:46; Start 05/18/21 at 06:00 Metoprolol Succinate (Toprol Xl) 25 mg DAILY PO Last administered on 05/20/21at 08:04; Start 05/18/21 at 09:00 Glycerin/ Hypromellose/ Polyethylene (Artificial Tears) 1 drop QID OU Last administered on 05/20/21at 12:19; Start 05/18/21 at 09:00 Insulin Human Lispro (HumaLOG) 5 units DAILYWLUN SQ Last administered on 05/20/21at 12:45; Start 05/18/21 at 12:00 Insulin Glargine (Lantus Syringe) 15 unit BID SQ Last administered on 05/20/21at 09:08; Start 05/18/21 at 09:00 Sennosides (Senna) 8.6 mg PRN BID PRN PO CONSTIPATION 1ST CHOICE; Start 05/17/21 at 23:30 Sertraline HCl (Zoloft) 125 mg DAILY PO Last administered on 05/20/21at 08:04; Start 05/18/21 at 09:00 Furosemide (Lasix) 20 mg 1X ONCE IVP Last administered on 05/18/21at 00:36; Start 05/17/21 at 23:45; Stop 05/17/21 at 23:46; Status DC Piperacillin Sod/ Tazobactam Sod (Zosyn Per Pharmacy) 1 each PRN DAILY PRN MC SEE COMMENTS; Start 05/18/21 at 11:15; Stop 05/19/21 at 10:41; Status DC Piperacillin Sod/ Tazobactam Sod 2.25 gm/Sodium Chloride 50 ml @ 100 mls/hr Q6HRS IV Last administered on 05/19/21at 05:38; Start 05/18/21 at 12:00; Stop 05/19/21 at 10:39; Status DC Sodium Polystyrene Sulfonate (Kayexalate) 15 gm 1X ONCE PO Last administered on 05/18/21at 12:00; Start 05/18/21 at 11:30; Stop 05/18/21 at 11:31; Status DC Sodium Chloride (Normal Saline Flush) 3 ml QSHIFT PRN IV AFTER MEDS AND BLOOD D RAWS; Start 05/18/21 at 12:00 Sodium Chloride 1,000 ml @ 65 mls/hr [id number] IV Last administered on 05/20/21at 12:18; Start 05/18/21 at 12:00 Ondansetron HCl (Zofran) 4 mg PRN Q4HRS PRN IV NAUSEA/VOMITING; Start 05/18/21 at 12:00 Acetaminophen (Tylenol) 650 mg PRN Q4HRS PRN PO TEMP OVER 100.4F OR MILD PAIN; Start 05/18/21 at 12:00 Acetaminophen (Tylenol Supp) 650 mg PRN Q4HRS PRN OK TEMP OVER 100.4F OR MILD PAIN; Start 05/18/21 at 12:00 Sodium Monofluorophosphate (Fleet Adult) 133 ml PRN DAILY PRN OK CONSTIPATION; Start 05/18/21 at 12:00 Docusate Sodium (Colace) 100 mg PRN BID PRN PO HARD STOOLS; Start 05/18/21 at 12:00 Albuterol/ Ipratropium (Duoneb) 3 ml Q4HRS W/A NEB Last administered on 05/20/21at 13:10; Start 05/18/21 at 14:00 Guaifenesin (Robitussin) 200 mg PRN Q4HRS PRN PO COUGH; Start 05/18/21 at 12:00 Enoxaparin Sodium (Lovenox 40mg Syringe) 40 mg Q24H SQ Last administered on 05/20/21at 12:19; Start 05/18/21 at 12:00 Linezolid/Dextrose 300 ml @ 300 mls/hr Q12HR IV Last administered on 05/20/21at 08:06; Start 05/19/21 at 11:00 Cefepime HCl (Maxipime) 1 gm Q8HRS IVP Last administered on 05/20/21at 12:19; Start 05/19/21 at 14:00 Metronidazole 100 ml @ 100 mls/hr Q12HR IV Last administered on 05/20/21at 07:57; Start 05/19/21 at 21:00 Lactobacillus Rhamnosus (Culturelle) 1 cap BID PO Last administered on 05/20/21at 08:03; Start 05/19/21 at 21:00 Active Scripts Active Culturelle (Lactobacillus Rhamnosus Gg) 1 Each Cap.sprink 1 Cap PO BID 30 Days Dok (Docusate Sodium) 100 Mg Capsule 100 Mg PO PRN DAILY PRN 30 Days Acetaminophen 325 Mg Tablet 650 Mg PO PRN Q4HRS PRN 30 Days Furosemide 40 Mg Tablet 1 Tab PO PRN DAILY PRN 30 Days Clopidogrel (Clopidogrel Bisulfate) 75 Mg Tablet 75 Mg PO DAILYWBKFT 30 Days Aspirin Ec (Aspirin) 81 Mg Tablet.dr 81 Mg PO DAILYWBKFT 30 Days Reported Lisinopril 20 Mg Tablet 20 Mg PO DAILY Zoloft (Sertraline Hcl) 100 Mg Tablet 125 Mg PO DAILY Polytrim Eye Drops (Polymyxin B Sulf/Trimethoprim) 10 Ml Drops 1 Drop LEFTEYE BID Novolog (Insulin Aspart) 100 Unit/1 Ml Cartridge 5 Unit SQ DAILYWLUN Refresh Optive Eye Drops (Carboxymethylcellulos/Glycerin) 15 Ml Drops 1 Drop LEFTEYE QID Senna (Sennosides) 8.8 Mg/5 Ml Syrup 8.8 Mg PO PRN Q12HR PRN Melatonin 3 Mg Tablet 2 Tab PO QHS Levemir (Insulin Detemir) 100 Unit/1 Ml Vial 15 Unit SQ BID [erythromycin oint] OS BID Potassium Chloride (Potassium Chloride) 20 Meq Tablet.er 20 Meq PO DAILY Metoprolol Succinate ( Xl ) (Metoprolol Succinate) 25 Mg Tab.er.24h 25 Mg PO DAILY Lipitor (Atorvastatin Calcium) 40 Mg Tablet 40 Mg PO HS Synthroid (Levothyroxine Sodium) 50 Mcg Tablet 50 Mcg PO DAILYAC Vitals/I & O Vital Sign - Last 24 Hours 05/19/21 05/19/21 05/19/21 05/20/21 19:25 19:33 23:32 03:55 Temp 99.4 98.7 98.9 99.4 98.7 98.9 Pulse 87 82 72 Resp 21 B/P (MAP) 171/65 (100) 163/82 (109) 152/76 (101) Pulse Ox 96 95 96 O2 Delivery Nasal Cannula Nasal Cannula Nasal Cannula Nasal Cannula O2 Flow Rate 2.0 2.0 2.0 2.0 05/20/21 05/20/21 05/20/21 05/20/21 07:00 07:34 08:00 08:04 Temp 98.7 98.7 Pulse 76 71 Resp 20 B/P (MAP) 167/72 (103) 167/72 Pulse Ox 98 97 O2 Delivery Nasal Cannula Nasal Cannula Room Air O2 Flow Rate 2.0 2.0 05/20/21 05/20/21 05/20/21 11:00 11:01 15:10 Temp 97.5 97.5 Pulse 78 Resp 20 B/P (MAP) 155/69 (97) Pulse Ox 97 97 O2 Delivery Nasal Cannula Nasal Cannula Nasal Cannula O2 Flow Rate 2.0 2.0 2.0 Intake and Output 05/19/21 05/19/21 05/20/21 15:00 23:00 07:00 Intake Total 660 ml 220 ml 100 ml Output Total 500 ml 800 ml Balance 660 ml -280 ml -700 ml Justifications for Admission General Conditions Altered mental status?: Yes Justification of admission: Patient has tachycardia (> 100 beats per minute) or hypotension (SBP < 90 mm Hg) leading to inadequate systemic perfusion as indicated by severe/persistent altered mental status. Other justification for admit: toxic metabolic encephalopathy Chest Pain Indications Justification for admission: alex Other Justification Sepsis and encephalopathy SANCHEZ SERNA MD May 20, 2021 15:46
[2021-05-20 19:40] VITALS: BP 153/75
[2021-05-20] MEDS: ATORVASTATIN CALCIUM 40 MG TABLET. PO SCH (21:11)
[2021-05-20 23:15] VITALS: BP 133/66
[2021-05-21 03:15] VITALS: BP 175/64
[2021-05-21] MEDS: IV NORMAL SALINE 1000ML BAG 1,000 ML IV SCH ×2 (05:23→17:00)
[2021-05-21] MEDS: CEFEPIME HCL IV Push 1 GM VIAL. IVP SCH ×3 (05:24→22:25)
[2021-05-21] MEDS: LEVOTHYROXINE 50 MCG TABLET PO SCH (05:24)
[2021-05-21 07:00] VITALS: BP 142/70
[2021-05-21] MEDS: IPRATRPIUM/ALBUTEROL 0.5/2.5MG 3 ML NEBU. NEB SCH ×5 (07:23→22:00)
--- NOTE | 2021-05-21 07:39 | NUR ---
IP: Pt is mrsa screen + requiring contact precautions. Recommend initiating the Nozin/CHG protocol.
[2021-05-21] MEDS: SERTRALINE 50 MG TABLET. PO SCH (07:49)
[2021-05-21] MEDS: CLOPIDOGREL BISULFATE 75 MG TABLET PO SCH (07:50)
[2021-05-21] MEDS: POLYVINYL ALCOHOL 1.4% OPHTH SOLUTION 15ML BOTTLE. OU SCH ×4 (07:50→22:24)
[2021-05-21] MEDS: ASPIRIN ENTERIC COATED 81 MG TABLET.DR. PO SCH (07:50)
[2021-05-21] MEDS: METOPROLOL SUCC 24HR ER 25 MG TAB.ER.24H. PO SCH (07:50)
[2021-05-21] MEDS: LACTOBACILLUS RHAMNOSUS GG 1 CAPSULE. PO SCH ×2 (07:50→22:24)
[2021-05-21] MEDS: INSULIN GLARGINE SYRINGE. SQ SCH ×2 (09:14→22:29)
--- NOTE | 2021-05-21 09:15 | PDOC ---
DATE OF SERVICE DATE: 05/21/21 TIME: 09:14 SUBJECTIVE ROS stable, No N/V OBJECTIVE Vital Signs Vital Signs Date Time Temp Pulse Resp B/P (MAP) Pulse Ox O2 Delivery O2 Flow Rate FiO2 05/21/21 07:50 82 142/60 05/21/21 07:24 94 Nasal Cannula 2.0 05/21/21 03:15 97.6 18 97.6 I & 0 Intake and Output 05/21/21 07:00 Intake Total 4840 ml Output Total 650 ml Balance 4190 ml Intake Oral 1140 ml IV Total 3700 ml Output Urine Total 650 ml PHYSICAL EXAM Physical Exam GENERAL:NAD HEENT: Om moist NECK: Supple. LUNGS: Clear to auscultation.Non labored HEART: Normal S1, S2. ABDOMEN: Obese, soft, nontender with bowel sounds present. EXTREMITIES: Previous left BKA SKIN: Warm to touch. No signs of generalized rash. NEUROLOGIC: Alert, answering simple questions, poor historian. No bui DIAGNOSIS/ASSESSMENT Assessment & Plan ABA - Vasomotor , resolved , back to his baseline ,Non Oliguric,fluid balance avoid nephrotoxins, supportive care CKD STAGE 3 b - baseline Cr ~2.0, No show for his follow up appts as OP Marked left hydroureteronephrosis-Chronic with ureteral stricture (in the past pt had refused Urology consult) CT - point of transition is in the ureter at the pelvic brim, no focal abnormality such as a calculus, focal stricture cannot be excluded. Hydronephrosis appears long-standing as there is severe cortical thinning of the left kidney. 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 Diabetes mellitus with neuropathy Peripheral vascular disease History of dementia and CVA Chronic diastolic CHF COMMENT/RELEVANT DATA Meds Current Medications Medications (Trade) Dose Ordered Sig/Zeeshan Start Time Stop Time Status Last Admin Dose Admin Acetaminophen (Tylenol Supp) 650 mg PRN Q4HRS PRN 05/18/21 12:00 Acetaminophen (Tylenol) 650 mg PRN Q4HRS PRN 05/18/21 12:00 Albuterol/ Ipratropium (Duoneb) 3 ml Q4HRS W/A 05/18/21 14:00 05/21/21 07:23 3 ML Aspirin (Ecotrin) 81 mg DAILYWBKFT 05/18/21 08:00 05/21/21 07:50 81 MG Atorvastatin Calcium (Lipitor) 40 mg HS 05/18/21 21:00 05/20/21 21:11 40 MG Cefepime HCl (Maxipime) 1 gm Q8HRS 05/19/21 14:00 05/21/21 05:24 1 GM Clopidogrel Bisulfate (Plavix) 75 mg DAILYWBKFT 05/18/21 08:00 05/21/21 07:50 75 MG Docusate Sodium (Colace) 100 mg PRN BID PRN 05/18/21 12:00 Enoxaparin Sodium (Lovenox 40mg Syringe) 40 mg Q24H 05/18/21 12:00 05/20/21 12:19 40 MG Furosemide (Lasix) 20 mg 1X ONCE 05/17/21 23:45 05/17/21 23:46 DC 05/18/21 00:36 20 MG Glycerin/ Hypromellose/ Polyethylene (Artificial Tears) 1 drop QID 05/18/21 09:00 05/21/21 07:50 1 DROP Guaifenesin (Robitussin) 200 mg PRN Q4HRS PRN 05/18/21 12:00 Insulin Glargine (Lantus Syringe) 15 unit BID 05/18/21 09:00 05/20/21 21:33 15 UNIT Insulin Human Lispro (HumaLOG) 5 units DAILYWLUN 05/18/21 12:00 05/20/21 12:45 5 UNITS Lactobacillus Rhamnosus (Culturelle) 1 cap BID 05/19/21 21:00 05/21/21 07:50 1 CAP Levothyroxine Sodium (Synthroid) 50 mcg DAILY06 05/18/21 06:00 05/21/21 05:24 50 MCG Linezolid/Dextrose 300 ml @ 300 mls/hr Q12HR 05/19/21 11:00 05/21/21 07:52 300 MLS/HR Lorazepam (Ativan Inj) 1 mg 1X ONCE 05/17/21 21:30 05/17/21 21:31 DC Metoprolol Succinate (Toprol Xl) 25 mg DAILY 05/18/21 09:00 05/21/21 07:50 25 MG Metronidazole 100 ml @ 100 mls/hr Q12HR 05/19/21 21:00 05/21/21 07:52 100 MLS/HR Morphine Sulfate (Morphine Sulfate) 2 mg PRN Q2HR PRN 05/17/21 20:45 05/18/21 20:44 DC Ondansetron HCl (Zofran) 4 mg PRN Q4HRS PRN 05/18/21 12:00 Piperacillin Sod/ Tazobactam Sod (Zosyn Per Pharmacy) 1 each PRN DAILY PRN 05/18/21 11:15 05/19/21 10:41 DC Piperacillin Sod/ Tazobactam Sod 2.25 gm/Sodium Chloride 50 ml @ 100 mls/hr Q6HRS 05/18/21 12:00 05/19/21 10:39 DC 05/19/21 05:38 100 MLS/HR Sennosides (Senna) 8.6 mg PRN BID PRN 05/17/21 23:30 Sertraline HCl (Zoloft) 125 mg DAILY 05/18/21 09:00 05/21/21 07:49 125 MG Sodium Monofluorophosphate (Fleet Adult) 133 ml PRN DAILY PRN 05/18/21 12:00 Sodium Polystyrene Sulfonate (Kayexalate) 15 gm 1X ONCE 05/18/21 11:30 05/18/21 11:31 DC 05/18/21 12:00 15 GM Sodium Chloride 1,000 ml @ 65 mls/hr [id number] 05/18/21 12:00 05/21/21 05:23 65 MLS/HR Sodium Chloride (Normal Saline Flush) 3 ml QSHIFT PRN 05/18/21 12:00 Lab Laboratory Tests Test 05/20/21 09:20 05/20/21 12:01 05/20/21 16:44 05/20/21 21:09 Sodium Level 143 mmol/L (136-145) Potassium Level 3.9 mmol/L (3.5-5.1) Chloride Level 107 mmol/L (98-107) Carbon Dioxide Level 27 mmol/L (21-32) Anion Gap 9 (6-14) Blood Urea Nitrogen 33 mg/dL (8-26) Creatinine 1.5 mg/dL (0.7-1.3) Estimated GFR (Cockcroft-Gault) 45.6 Glucose Level 134 mg/dL (70-99) Calcium Level 8.4 mg/dL (8.5-10.1) Glucose (Fingerstick) 231 mg/dL (70-99) 214 mg/dL (70-99) 327 mg/dL (70-99) Test 05/21/21 07:55 Glucose (Fingerstick) 69 mg/dL (70-99) Results All relevant outside records, renal labs, imaging studies, telemetry/EKG's were reviewed. Justicifation of Admission Dx: Justifications for Admission: Justification of Admission Dx: Yes RICHIE GONZALEZ MD May 21, 2021 09:14
--- NOTE | 2021-05-21 09:42 | PDOC ---
Infectious Disease Note Subjective: Subjective Patient more alert this morning States feels better Vital Signs: Vital Signs Vital Signs Date Time Temp Pulse Resp B/P (MAP) Pulse Ox O2 Delivery O2 Flow Rate FiO2 05/21/21 08:00 Nasal Cannula 2.0 05/21/21 07:50 82 142/60 05/21/21 07:24 94 05/21/21 07:00 98.4 17 98.4 Physical Exam: PHYSICAL EXAM General alert awake male in no acute distress appears comfortable HEENT normocephalic atraumatic oropharynx clear Neck supple Lungs clear anteriorly Heart S1-S2 Abdominal soft bowel sounds present nontender Alvares in place Extremities previous left BKA unremarkable, right lower extremity erythema and warmth anterior armijo. There is an ulcer distal TMA with no drainage Derm warm dry no generalized rash except for above Neuro alert awake male in no acute distress / weakness Psych calm Medications: Inpatient Meds: Medications reviewed. Labs: Lab Laboratory Tests Test 05/20/21 12:01 05/20/21 16:44 05/20/21 21:09 05/21/21 07:55 Glucose (Fingerstick) 231 mg/dL (70-99) 214 mg/dL (70-99) 327 mg/dL (70-99) 69 mg/dL (70-99) Objective: Assessment: Fever improved Leukocytosis resolved Encephalopathy CT head negative for acute process improving Chronic nonhealing right diabetic foot wound with history of TMA in the past -x ray neg for OM History of left BKA Diabetes mellitus with neuropathy Peripheral vascular disease Chronic renal insufficiency History of dementia and CVA [facility] resident Chronic diastolic CHF Plan: Plan of Care Cont cefepime and Flagyl,was on zosyn Continue linezolid Change Alvares if not done already Local wound care Maintain aspiration precautions JESSA CALLAHAN MD May 21, 2021 09:42
[2021-05-21 11:00] VITALS: BP 143/56
--- NOTE | 2021-05-21 12:20 | PDOC ---
EVA HEREDIA SERVICES COORDINATOR 05/21/21 1220: CARDIO Progress Notes Date and Time Date of Service 05/21/21 Time of Evaluation 1215 Subjective Subjective: No Chest Pain, No shortness of breath, No Palpitations Vitals Vitals Vital Signs Date Time Temp Pulse Resp B/P (MAP) Pulse Ox O2 Delivery O2 Flow Rate FiO2 05/21/21 11:37 100 Nasal Cannula 2.0 05/21/21 11:00 97.9 80 17 143/56 (85) 97.9 Weight Weight [ ] Input and Output Intake and Output Intake and Output 05/21/21 07:00 Intake Total 4840 ml Output Total 650 ml Balance 4190 ml Intake Oral 1140 ml IV Total 3700 ml Output Urine Total 650 ml Laboratory Labs Laboratory Tests Test 05/20/21 16:44 05/20/21 21:09 05/21/21 07:55 05/21/21 11:43 Glucose (Fingerstick) 214 mg/dL (70-99) 327 mg/dL (70-99) 69 mg/dL (70-99) 200 mg/dL (70-99) Microbiology Micro Microbiology 05/18/21 Blood Culture - Final, Complete Physical Exam HEENT: Neck Supple W Full Motion Chest: Symmetric LUNGS: Clear to Auscultation, Other (diminished bases) Heart: RRR Abdomen: Soft N/T Extremities: Other (left BKA, right TMA ) Neurology: alert, follow commands, confused Assessment Assessment 1. Metabolic encephalopathy with underling dementia. CT without acute changes. 2. 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 3. Mild troponin elevation; highest 0.128. Most probably type II, demand ischemia secondary to above. CP free. 4. Chronic diastolic CHF; echo 11/23 with preserved LV systolic function. appears compensated 5. CAD; details unknown 6. Hypertension; controlled 7. Hyperlipidemia; statin 8. Diabetes, II 9. PAD; s/p [employer] of the right common femoral artery. Also s/p right TMA and left BKA 10. H/o CVA Recommendations Secondary prevention measures including DAPT with ASA/Plavix Continue BB, statin therapy Consider outpatient ischemic evaluation Supportive care Justicifation of Admission Dx: Justifications for Admission: Justification of Admission Dx: Yes DANIELLA INMAN MD 05/21/211927: CARDIO Progress Notes Plan Plan The patient was seen and interviewed as well as examined at the bedside. The chart was reviewed. The case was discussed. Agree with the plan of care. EVA HEREDIA APRN May 21, 2021 12:20 DANIELLA INMAN MD May 21, 2021 19:28
[2021-05-21] MEDS: ENOXAPARIN 40 MG/0.4 ML SYRINGE. SQ SCH (12:22)
[2021-05-21] MEDS: INSULIN LISPRO 300 UNITS/3 ML VIAL. SQ SCH (12:45)
--- NOTE | 2021-05-21 12:54 | PDOC ---
[facility] PROGRESS NOTE Date of Service DOS: DATE: 05/21/21 TIME: 12:44 Chief Complaint Chief Complaint VTE Prophylaxis Ordered VTE Prophylaxis Devices: No VTE Pharmacological Prophylaxi: Yes Assessment/Plan Assessment/Plan IMPRESSION: Acute metabolic encephalopathy No acute intracranial hemorrhage. 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 Right LE vascular compromise Marked left hydroureteronephrosis-Chronic with ureteral stricture Possible sundowning plan admit blood cultures emperic iv antibiotics, zosyn, renal dosing Nephrology consult cvc bed Cardiology consulted wound care nurse consulted mandeep qid CRP PROCALCITONIN Trend troponin i anticipate LOS > 3 DAYS 38 min pt exam, chart review, > 50% of time spent with exam, chart review, pt care coordination History of Present Illness History of Present Illness presented to ER from a intermediate for altered mental status. Patient is alert but NOT oriented to self BUT poor historian. 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 Findings are stable WBC 13.7 . WITH LEFT SHIFT, blood culture done x 1 in ER 76-year-old male with history of left BKA in 2019 He has a history of a right TMA He has a very small right foot wound on the plantar surface overlying his fifth metatarsal head minimal erythema // right TMA He has been treated for several other medical issues, including acute infectious encephalopathy, HCAP, ABA, anemia. He is a poor historian, history obtaining is difficult. hx RECENT percutaneous arterial intervention on the left leg, The patient was unable to give me accurate history. Wound care consulted, NEPHROLOGY CONSULTED PO KAYEXYLATE 15 GM X 1 pending, Cardiology consulted. emperic iv zosyn dosed renally hx Right DFU with underlying peripheral artery disease, status post recent angiogram with balloon angioplasty MARCH 2021 05/21/2021: Afebrile, currently breathing on 2 L nasal cannula. He had positive blood cultures, gram-positive cocci in clusters 1 of 4 bottles suggesting staph. Currently on cefepime, metronidazole, and Zyvox, per ID. Denies any nausea or pain currently. Continue IV antibiotics. 05-20 Acute metabolic encephalopathy, slow to improve No acute intracranial hemorrhage. 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 Right LE vascular compromise Marked left hydroureteronephrosis-Chronic with ureteral stricture Possible sundowning admit blood cultures emperic iv antibiotics, zosyn, renal dosing Nephrology consult cvc bed Cardiology consulted wound care nurse consulted mandeep [place]iken CRP PROCALCITONIN Trend troponin i DC Zosyn IV empiric cefepime and Flagyl Continue linezolid Change Alvares if not done already Right foot x-ray anticipate LOS > 4 DAYS 27 min pt exam, chart review, > 50% of time spent with exam, chart review, pt care coordination 05-19 Acute metabolic encephalopathy No acute intracranial hemorrhage. 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 Right LE vascular compromise Marked left hydroureteronephrosis-Chronic with ureteral stricture Possible sundowning admit blood cultures emperic iv antibiotics, zosyn, renal dosing Nephrology consult cvc bed Cardiology consulted wound care nurse consulted mandeep qid CRP PROCALCITONIN Trend troponin i DC Zosyn IV empiric cefepime and Flagyl Continue linezolid Change Alvares if not done already Right foot x-ray anticipate LOS > 3 DAYS 28 min pt exam, chart review, > 50% of time spent with exam, chart review, pt care coordination Vitals/I&O Vitals/I&O: Vital Signs Date Time Temp Pulse Resp B/P (MAP) Pulse Ox O2 Delivery O2 Flow Rate FiO2 05/21/21 11:37 100 Nasal Cannula 2.0 05/21/21 11:00 97.9 80 17 143/56 (85) 97.9 I & O 05/20/21 05/20/21 05/21/21 15:00 23:00 07:00 Intake Total 1880 ml 1660 ml 1300 ml Output Total 650 ml Balance 1880 ml 1010 ml 1300 ml Physical Exam Physical Exam: General alert awake male in no acute distress appears comfortable HEENT normocephalic atraumatic oropharynx clear Neck supple Lungs clear anteriorly Heart S1-S2 Abdominal soft bowel sounds present nontender Alvares in place Extremities previous left BKA unremarkable, right lower extremity erythema and warmth anterior armijo. There is an ulcer distal TMA with no drainage Derm warm dry no generalized rash except for above Neuro alert awake male in no acute distress / weakness Psych calm General: Other (Mildly more alert today.) Heart: Regular rate Lungs: Clear Abdomen: Normal bowel sounds Extremities: No clubbing, No cyanosis Labs Labs: Laboratory Tests Test 05/20/21 16:44 05/20/21 21:09 05/21/21 07:55 05/21/21 11:43 Glucose (Fingerstick) 214 mg/dL (70-99) 327 mg/dL (70-99) 69 mg/dL (70-99) 200 mg/dL (70-99) Assessment and Plan Assessmemt and Plan Problems Medical Problems: (1) Altered mental status Status: Acute Comment Review of Relevant I have reviewed the following items magalie (where applicable) has been applied. Justifications for Admission General Conditions Altered mental status?: Yes Justification of admission: Patient has tachycardia (> 100 beats per minute) or hypotension (SBP < 90 mm Hg) leading to inadequate systemic perfusion as indicated by severe/persistent altered mental status. Other justification for admit: toxic metabolic encephalopathy Chest Pain Indications Justification for admission: aba Other Justification Sepsis and encephalopathy RAQUEL EVANS MD May 21, 2021 12:54
[2021-05-21 15:00] VITALS: BP 136/58
[2021-05-21 19:10] VITALS: BP 177/73
[2021-05-21] MEDS: ATORVASTATIN CALCIUM 40 MG TABLET. PO SCH (22:24)
[2021-05-21 23:15] VITALS: BP 153/65
[2021-05-22 02:50] VITALS: BP 123/72
[2021-05-22] MEDS: CEFEPIME HCL IV Push 1 GM VIAL. IVP SCH ×3 (06:05→20:31)
[2021-05-22] MEDS: LEVOTHYROXINE 50 MCG TABLET PO SCH (06:05)
[2021-05-22 06:56] LABS: BASO % 0 % (0-3); EOS # 0.2 x10^3/uL (0.0-0.7); EOS % 2 % (0-3); HEMATOCRIT 31.6 % (39.0-53.0); HEMOGLOBIN 10.4 g/dL (13.0-17.5); LYMPH # 0.8 x10^3/uL (1.0-4.8); LYMPH % 7 % (24-48); MEAN CORPUSCULAR HEMOGLOBIN 30 pg (25-35); MEAN CORPUSCULAR HGB CONC 33 g/dL (31-37); MEAN CORPUSCULAR VOLUME 92 fL (79-100); MONO # 1.1 x10^3/uL (0.0-1.1); MONO % 9 % (0-9); NEUT # 10.1 x10^3/uL (1.8-7.7); NEUT % 82 % (31-73); PLATELET COUNT 196 x10^3/uL (140-400); RED BLOOD COUNT 3.43 x10^6/uL (4.30-5.70); RED CELL DISTRIBUTION WIDTH 14.3 % (11.5-14.5); WHITE BLOOD COUNT 12.3 x10^3/uL (4.0-11.0)
[2021-05-22 07:00] VITALS: BP 153/76
[2021-05-22 07:13] LABS: CALCIUM 8.1 mg/dL (8.5-10.1); CREATININE 1.3 mg/dL (0.7-1.3); GFR 53.8; POTASSIUM 3.2 mmol/L (3.5-5.1)
--- NOTE | 2021-05-22 08:00 | PDOC ---
Infectious Disease Note Subjective: Subjective Patient is resting comfortably Vital Signs: Vital Signs Vital Signs Date Time Temp Pulse Resp B/P (MAP) Pulse Ox O2 Delivery O2 Flow Rate FiO2 05/22/21 02:50 98.0 80 20 123/72 (89) 95 Room Air 98.0 05/21/21 19:32 2.0 Physical Exam: PHYSICAL EXAM General alert awake male in no acute distress appears comfortable HEENT normocephalic atraumatic oropharynx clear Neck supple Lungs clear anteriorly Heart S1-S2 Abdominal soft bowel sounds present nontender Alvares in place Extremities previous left BKA unremarkable, right lower extremity erythema and warmth anterior armijo. There is an ulcer distal TMA with no drainage Derm warm dry no generalized rash except for above Neuro alert awake male in no acute distress / weakness Psych calm Medications: Inpatient Meds: Medications reviewed. Labs: Lab Laboratory Tests Test 05/21/21 11:43 05/21/21 21:06 05/22/21 06:35 Glucose (Fingerstick) 200 mg/dL (70-99) 156 mg/dL (70-99) White Blood Count 12.3 x10^3/uL (4.0-11.0) Red Blood Count 3.43 x10^6/uL (4.30-5.70) Hemoglobin 10.4 g/dL (13.0-17.5) Hematocrit 31.6 % (39.0-53.0) Mean Corpuscular Volume 92 fL (79-100) Mean Corpuscular Hemoglobin 30 pg (25-35) Mean Corpuscular Hemoglobin Concent 33 g/dL (31-37) Red Cell Distribution Width 14.3 % (11.5-14.5) Platelet Count 196 x10^3/uL (140-400) Neutrophils (%) (Auto) 82 % (31-73) Lymphocytes (%) (Auto) 7 % (24-48) Monocytes (%) (Auto) 9 % (0-9) Eosinophils (%) (Auto) 2 % (0-3) Basophils (%) (Auto) 0 % (0-3) Neutrophils # (Auto) 10.1 x10^3/uL (1.8-7.7) Lymphocytes # (Auto) 0.8 x10^3/uL (1.0-4.8) Monocytes # (Auto) 1.1 x10^3/uL (0.0-1.1) Eosinophils # (Auto) 0.2 x10^3/uL (0.0-0.7) Basophils # (Auto) 0.0 x10^3/uL (0.0-0.2) Sodium Level 143 mmol/L (136-145) Potassium Level 3.2 mmol/L (3.5-5.1) Chloride Level 109 mmol/L (98-107) Carbon Dioxide Level 26 mmol/L (21-32) Anion Gap 8 (6-14) Blood Urea Nitrogen 21 mg/dL (8-26) Creatinine 1.3 mg/dL (0.7-1.3) Estimated GFR (Cockcroft-Gault) 53.8 Glucose Level 75 mg/dL (70-99) Calcium Level 8.1 mg/dL (8.5-10.1) Objective: Assessment: Fever improved Leukocytosis could be reactive Encephalopathy CT head negative for acute process improving Chronic nonhealing right diabetic foot wound with history of TMA in the past -x ray neg for OM History of left BKA Diabetes mellitus with neuropathy Peripheral vascular disease Chronic renal insufficiency History of dementia and CVA skilled nursing resident Chronic diastolic CHF Anemia Plan: Plan of Care Cont cefepime and Flagyl,was on zosyn Continue linezolid Anemia per primary Change Giorgio if not done already Local wound care Maintain aspiration precautions JESSA CALLAHAN MD May 22, 2021 08:00
[2021-05-22] MEDS: ASPIRIN ENTERIC COATED 81 MG TABLET.DR. PO SCH (08:51)
[2021-05-22] MEDS: LACTOBACILLUS RHAMNOSUS GG 1 CAPSULE. PO SCH ×2 (08:51→20:31)
[2021-05-22] MEDS: CLOPIDOGREL BISULFATE 75 MG TABLET PO SCH (08:51)
[2021-05-22] MEDS: SERTRALINE 50 MG TABLET. PO SCH (08:51)
[2021-05-22] MEDS: POLYVINYL ALCOHOL 1.4% OPHTH SOLUTION 15ML BOTTLE. OU SCH ×4 (08:52→20:31)
[2021-05-22] MEDS: IPRATRPIUM/ALBUTEROL 0.5/2.5MG 3 ML NEBU. NEB SCH ×5 (08:52→21:41)
[2021-05-22] MEDS: METOPROLOL SUCC 24HR ER 25 MG TAB.ER.24H. PO SCH (08:52)
[2021-05-22] MEDS: IV NORMAL SALINE 1000ML BAG 1,000 ML IV SCH ×2 (08:57→23:48)
[2021-05-22] MEDS: INSULIN GLARGINE SYRINGE. SQ SCH ×2 (09:14→20:44)
--- NOTE | 2021-05-22 09:30 | PDOC ---
DATE OF SERVICE DATE: 05/22/21 TIME: 09:29 SUBJECTIVE ROS stable, No N/V OBJECTIVE Vital Signs Vital Signs Date Time Temp Pulse Resp B/P (MAP) Pulse Ox O2 Delivery O2 Flow Rate FiO2 05/22/21 08:57 97 Room Air 1.5 05/22/21 08:52 81 153/76 05/22/21 07:00 98.0 16 98.0 I & 0 Intake and Output 05/22/21 07:00 Intake Total 980 ml Balance 980 ml Intake Oral 580 ml IV Total 400 ml # Voids 4 # Bowel Movements 1 PHYSICAL EXAM Physical Exam GENERAL:NAD HEENT: Om moist NECK: Supple. LUNGS: Clear to auscultation.Non labored HEART: Normal S1, S2. ABDOMEN: Obese, soft, nontender with bowel sounds present. EXTREMITIES: Previous left BKA SKIN: Warm to touch. No signs of generalized rash. NEUROLOGIC: Alert, answering simple questions, poor historian. No bui DIAGNOSIS/ASSESSMENT Assessment & Plan ABA - Vasomotor , resolved , back to his baseline ,Non Oliguric, fluid balance avoid nephrotoxins, supportive care CKD STAGE 3 b - baseline Cr ~2.0, No show for his follow up appts as OP .Marked left hydroureteronephrosis-Chronic with ureteral stricture (in the past pt had refused Urology consult) CT - point of transition is in the ureter at the pelvic brim, no focal abnormality such as a calculus, focal stricture cannot be excluded. Hydronephrosis appears long-standing as there is severe cortical thinning of the left kidney. 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 Diabetes mellitus with neuropathy Peripheral vascular disease History of dementia and CVA Chronic diastolic CHF COMMENT/RELEVANT DATA Meds Current Medications Medications (Trade) Dose Ordered Sig/Zeeshan Start Time Stop Time Status Last Admin Dose Admin Acetaminophen (Tylenol Supp) 650 mg PRN Q4HRS PRN 05/18/21 12:00 Acetaminophen (Tylenol) 650 mg PRN Q4HRS PRN 05/18/21 12:00 Albuterol/ Ipratropium (Duoneb) 3 ml Q4HRS W/A 05/18/21 14:00 05/22/21 08:52 3 ML Aspirin (Ecotrin) 81 mg DAILYWBKFT 05/18/21 08:00 05/22/21 08:51 81 MG Atorvastatin Calcium (Lipitor) 40 mg HS 05/18/21 21:00 05/21/21 22:24 40 MG Cefepime HCl (Maxipime) 1 gm Q8HRS 05/19/21 14:00 05/22/21 06:05 1 GM Clopidogrel Bisulfate (Plavix) 75 mg DAILYWBKFT 05/18/21 08:00 05/22/21 08:51 75 MG Docusate Sodium (Colace) 100 mg PRN BID PRN 05/18/21 12:00 Enoxaparin Sodium (Lovenox 40mg Syringe) 40 mg Q24H 05/18/21 12:00 05/21/21 12:22 40 MG Furosemide (Lasix) 20 mg 1X ONCE 05/17/21 23:45 05/17/21 23:46 DC 05/18/21 00:36 20 MG Glycerin/ Hypromellose/ Polyethylene (Artificial Tears) 1 drop QID 05/18/21 09:00 05/22/21 08:52 1 DROP Guaifenesin (Robitussin) 200 mg PRN Q4HRS PRN 05/18/21 12:00 Insulin Glargine (Lantus Syringe) 15 unit BID 05/18/21 09:00 05/22/21 09:14 15 UNIT Insulin Human Lispro (HumaLOG) 5 units DAILYWLUN 05/18/21 12:00 05/21/21 12:45 5 UNITS Lactobacillus Rhamnosus (Culturelle) 1 cap BID 05/19/21 21:00 05/22/21 08:51 1 CAP Levothyroxine Sodium (Synthroid) 50 mcg DAILY06 05/18/21 06:00 05/22/21 06:05 50 MCG Linezolid/Dextrose 300 ml @ 300 mls/hr Q12HR 05/19/21 11:00 05/22/21 08:51 300 MLS/HR Lorazepam (Ativan Inj) 1 mg 1X ONCE 05/17/21 21:30 05/17/21 21:31 DC Metoprolol Succinate (Toprol Xl) 25 mg DAILY 05/18/21 09:00 05/22/21 08:52 25 MG Metronidazole 100 ml @ 100 mls/hr Q12HR 05/19/21 21:00 05/22/21 08:50 100 MLS/HR Morphine Sulfate (Morphine Sulfate) 2 mg PRN Q2HR PRN 05/17/21 20:45 05/18/21 20:44 DC Ondansetron HCl (Zofran) 4 mg PRN Q4HRS PRN 05/18/21 12:00 Piperacillin Sod/ Tazobactam Sod (Zosyn Per Pharmacy) 1 each PRN DAILY PRN 05/18/21 11:15 05/19/21 10:41 DC Piperacillin Sod/ Tazobactam Sod 2.25 gm/Sodium Chloride 50 ml @ 100 mls/hr Q6HRS 05/18/21 12:00 05/19/21 10:39 DC 05/19/21 05:38 100 MLS/HR Sennosides (Senna) 8.6 mg PRN BID PRN 05/17/21 23:30 Sertraline HCl (Zoloft) 125 mg DAILY 05/18/21 09:00 05/22/21 08:51 125 MG Sodium Monofluorophosphate (Fleet Adult) 133 ml PRN DAILY PRN 05/18/21 12:00 Sodium Polystyrene Sulfonate (Kayexalate) 15 gm 1X ONCE 05/18/21 11:30 05/18/21 11:31 DC 05/18/21 12:00 15 GM Sodium Chloride 1,000 ml @ 65 mls/hr [id number] 05/18/21 12:00 05/22/21 08:57 65 MLS/HR Sodium Chloride (Normal Saline Flush) 3 ml QSHIFT PRN 05/18/21 12:00 Lab Laboratory Tests Test 05/21/21 11:43 05/21/21 21:06 05/22/21 06:35 05/22/21 07:59 Glucose (Fingerstick) 200 mg/dL (70-99) 156 mg/dL (70-99) 77 mg/dL (70-99) White Blood Count 12.3 x10^3/uL (4.0-11.0) Red Blood Count 3.43 x10^6/uL (4.30-5.70) Hemoglobin 10.4 g/dL (13.0-17.5) Hematocrit 31.6 % (39.0-53.0) Mean Corpuscular Volume 92 fL (79-100) Mean Corpuscular Hemoglobin 30 pg (25-35) Mean Corpuscular Hemoglobin Concent 33 g/dL (31-37) Red Cell Distribution Width 14.3 % (11.5-14.5) Platelet Count 196 x10^3/uL (140-400) Neutrophils (%) (Auto) 82 % (31-73) Lymphocytes (%) (Auto) 7 % (24-48) Monocytes (%) (Auto) 9 % (0-9) Eosinophils (%) (Auto) 2 % (0-3) Basophils (%) (Auto) 0 % (0-3) Neutrophils # (Auto) 10.1 x10^3/uL (1.8-7.7) Lymphocytes # (Auto) 0.8 x10^3/uL (1.0-4.8) Monocytes # (Auto) 1.1 x10^3/uL (0.0-1.1) Eosinophils # (Auto) 0.2 x10^3/uL (0.0-0.7) Basophils # (Auto) 0.0 x10^3/uL (0.0-0.2) Sodium Level 143 mmol/L (136-145) Potassium Level 3.2 mmol/L (3.5-5.1) Chloride Level 109 mmol/L (98-107) Carbon Dioxide Level 26 mmol/L (21-32) Anion Gap 8 (6-14) Blood Urea Nitrogen 21 mg/dL (8-26) Creatinine 1.3 mg/dL (0.7-1.3) Estimated GFR (Cockcroft-Gault) 53.8 Glucose Level 75 mg/dL (70-99) Calcium Level 8.1 mg/dL (8.5-10.1) Results All relevant outside records, renal labs, imaging studies, telemetry/EKG's were reviewed. Justicifation of Admission Dx: Justifications for Admission: Justification of Admission Dx: Yes RICHIE GONZALEZ MD May 22, 2021 09:30
[2021-05-22 11:00] VITALS: BP 134/70
[2021-05-22] MEDS: INSULIN LISPRO 300 UNITS/3 ML VIAL. SQ SCH (12:00)
--- NOTE | 2021-05-22 12:01 | PDOC ---
[employer] PROGRESS NOTE Date of Service DOS: DATE: 05/22/21 TIME: 11:52 Chief Complaint Chief Complaint VTE Prophylaxis Ordered VTE Prophylaxis Devices: No VTE Pharmacological Prophylaxi: Yes Assessment/Plan Assessment/Plan IMPRESSION: Acute metabolic encephalopathy No acute intracranial hemorrhage. 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 Patient is alert but NOT oriented to self BUT poor historian. 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 Findings are stable WBC 13.7 . WITH LEFT SHIFT, blood culture done x 1 in ER 76-year-old male with history of left BKA in 2019 He has a history of a right TMA He has a very small right foot wound on the plantar surface overlying his fifth metatarsal head minimal erythema // right TMA He has been treated for several other medical issues, including acute infectious encephalopathy, HCAP, ABA, anemia. He is a poor historian, history obtaining is difficult. hx RECENT percutaneous arterial intervention on the left leg, The patient was unable to give me accurate history. Wound care consulted, NEPHROLOGY CONSULTED PO KAYEXYLATE 15 GM X 1 pending, Cardiology consulted. emperic iv zosyn dosed renally hx Right DFU with underlying peripheral artery disease, status post recent angiogram with balloon angioplasty MARCH 2021 05/22/2021: Patient seen and evaluated bedside. Afebrile, currently breathing room air; no new complaints today. Blood cultures resulted Staph aureus. We will continue cefepime, metronidazole, and Zyvox, per ID. Await blood culture susceptibilities. 05/21/2021: Afebrile, currently breathing on 2 L nasal cannula. He had positive blood cultures, gram-positive cocci in clusters 1 of 4 bottles suggesting staph. Currently on cefepime, metronidazole, and Zyvox, per ID. Denies any nausea or pain currently. Continue IV antibiotics. 05-20 Acute metabolic encephalopathy, slow to improve No acute intracranial hemorrhage. 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 Right LE vascular compromise Marked left hydroureteronephrosis-Chronic with ureteral stricture Possible sundowning admit blood cultures emperic iv antibiotics, zosyn, renal dosing Nephrology consult cvc bed Cardiology consulted wound care nurse consulted duonebs qid CRP PROCALCITONIN Trend troponin i DC Zosyn IV empiric cefepime and Flagyl Continue linezolid Change Alvares if not done already Right foot x-ray anticipate LOS > 4 DAYS 27 min pt exam, chart review, > 50% of time spent with exam, chart review, pt care coordination 05-19 Acute metabolic encephalopathy No acute intracranial hemorrhage. 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 Right LE vascular compromise Marked left hydroureteronephrosis-Chronic with ureteral stricture Possible sundowning admit blood cultures emperic iv antibiotics, zosyn, renal dosing Nephrology consult cvc bed Cardiology consulted wound care nurse consulted mandeep qid CRP PROCALCITONIN Trend troponin i DC Zosyn IV empiric cefepime and Flagyl Continue linezolid Change Alvares if not done already Right foot x-ray anticipate LOS > 3 DAYS 28 min pt exam, chart review, > 50% of time spent with exam, chart review, pt care coordination Vitals/I&O Vitals/I&O: Vital Signs Date Time Temp Pulse Resp B/P (MAP) Pulse Ox O2 Delivery O2 Flow Rate FiO2 05/22/21 11:00 97.4 82 16 134/70 (91) 94 Nasal Cannula 2.0 97.4 I & O 05/21/21 05/21/21 05/22/21 15:00 23:00 07:00 Intake Total 880 ml 100 ml Balance 880 ml 100 ml Physical Exam Physical Exam: General alert awake male in no acute distress appears comfortable HEENT normocephalic atraumatic oropharynx clear Neck supple Lungs clear anteriorly Heart S1-S2 Abdominal soft bowel sounds present nontender Alvares in place Extremities previous left BKA unremarkable, right lower extremity erythema and warmth anterior armijo. There is an ulcer distal TMA with no drainage Derm warm dry no generalized rash except for above Neuro alert awake male in no acute distress / weakness Psych calm General: Other (Mildly more alert today.) Heart: Regular rate Lungs: Clear Abdomen: Normal bowel sounds Extremities: No clubbing, No cyanosis Labs Labs: Laboratory Tests Test 05/21/21 21:06 05/22/21 06:35 05/22/21 07:59 Glucose (Fingerstick) 156 mg/dL (70-99) 77 mg/dL (70-99) White Blood Count 12.3 x10^3/uL (4.0-11.0) Red Blood Count 3.43 x10^6/uL (4.30-5.70) Hemoglobin 10.4 g/dL (13.0-17.5) Hematocrit 31.6 % (39.0-53.0) Mean Corpuscular Volume 92 fL (79-100) Mean Corpuscular Hemoglobin 30 pg (25-35) Mean Corpuscular Hemoglobin Concent 33 g/dL (31-37) Red Cell Distribution Width 14.3 % (11.5-14.5) Platelet Count 196 x10^3/uL (140-400) Neutrophils (%) (Auto) 82 % (31-73) Lymphocytes (%) (Auto) 7 % (24-48) Monocytes (%) (Auto) 9 % (0-9) Eosinophils (%) (Auto) 2 % (0-3) Basophils (%) (Auto) 0 % (0-3) Neutrophils # (Auto) 10.1 x10^3/uL (1.8-7.7) Lymphocytes # (Auto) 0.8 x10^3/uL (1.0-4.8) Monocytes # (Auto) 1.1 x10^3/uL (0.0-1.1) Eosinophils # (Auto) 0.2 x10^3/uL (0.0-0.7) Basophils # (Auto) 0.0 x10^3/uL (0.0-0.2) Sodium Level 143 mmol/L (136-145) Potassium Level 3.2 mmol/L (3.5-5.1) Chloride Level 109 mmol/L (98-107) Carbon Dioxide Level 26 mmol/L (21-32) Anion Gap 8 (6-14) Blood Urea Nitrogen 21 mg/dL (8-26) Creatinine 1.3 mg/dL (0.7-1.3) Estimated GFR (Cockcroft-Gault) 53.8 Glucose Level 75 mg/dL (70-99) Calcium Level 8.1 mg/dL (8.5-10.1) Assessment and Plan Assessmemt and Plan Problems Medical Problems: (1) Altered mental status Status: Acute Comment Review of Relevant I have reviewed the following items magalie (where applicable) has been applied. Justifications for Admission General Conditions Altered mental status?: Yes Justification of admission: Patient has tachycardia (> 100 beats per minute) or hypotension (SBP < 90 mm Hg) leading to inadequate systemic perfusion as indicated by severe/persistent altered mental status. Other justification for admit: toxic metabolic encephalopathy Chest Pain Indications Justification for admission: aba Other Justification Sepsis and encephalopathy RAQUEL EVANS MD May 22, 2021 12:01
--- NOTE | 2021-05-22 12:06 | PDOC ---
EVA HEREDIA DIRECTOR DESIGN 05/22/21 1206: CARDIO Progress Notes Date and Time Date of Service 05/22/21 Time of Evaluation 1200 Subjective Subjective: No Chest Pain, No shortness of breath, No Palpitations Vitals Vitals Vital Signs Date Time Temp Pulse Resp B/P (MAP) Pulse Ox O2 Delivery O2 Flow Rate FiO2 05/22/21 11:00 97.4 82 16 134/70 (91) 94 Nasal Cannula 2.0 97.4 Weight Weight [ ] Input and Output Intake and Output Intake and Output 05/22/21 07:00 Intake Total 980 ml Balance 980 ml Intake Oral 580 ml IV Total 400 ml # Voids 4 # Bowel Movements 1 Laboratory Labs Laboratory Tests Test 05/21/21 21:06 05/22/21 06:35 05/22/21 07:59 Glucose (Fingerstick) 156 mg/dL (70-99) 77 mg/dL (70-99) White Blood Count 12.3 x10^3/uL (4.0-11.0) Red Blood Count 3.43 x10^6/uL (4.30-5.70) Hemoglobin 10.4 g/dL (13.0-17.5) Hematocrit 31.6 % (39.0-53.0) Mean Corpuscular Volume 92 fL (79-100) Mean Corpuscular Hemoglobin 30 pg (25-35) Mean Corpuscular Hemoglobin Concent 33 g/dL (31-37) Red Cell Distribution Width 14.3 % (11.5-14.5) Platelet Count 196 x10^3/uL (140-400) Neutrophils (%) (Auto) 82 % (31-73) Lymphocytes (%) (Auto) 7 % (24-48) Monocytes (%) (Auto) 9 % (0-9) Eosinophils (%) (Auto) 2 % (0-3) Basophils (%) (Auto) 0 % (0-3) Neutrophils # (Auto) 10.1 x10^3/uL (1.8-7.7) Lymphocytes # (Auto) 0.8 x10^3/uL (1.0-4.8) Monocytes # (Auto) 1.1 x10^3/uL (0.0-1.1) Eosinophils # (Auto) 0.2 x10^3/uL (0.0-0.7) Basophils # (Auto) 0.0 x10^3/uL (0.0-0.2) Sodium Level 143 mmol/L (136-145) Potassium Level 3.2 mmol/L (3.5-5.1) Chloride Level 109 mmol/L (98-107) Carbon Dioxide Level 26 mmol/L (21-32) Anion Gap 8 (6-14) Blood Urea Nitrogen 21 mg/dL (8-26) Creatinine 1.3 mg/dL (0.7-1.3) Estimated GFR (Cockcroft-Gault) 53.8 Glucose Level 75 mg/dL (70-99) Calcium Level 8.1 mg/dL (8.5-10.1) Microbiology Micro Microbiology 05/18/21 Blood Culture - Preliminary, Resulted Physical Exam HEENT: Neck Supple W Full Motion Chest: Symmetric LUNGS: Clear to Auscultation, Other (diminished bases) Heart: RRR Abdomen: Soft N/T Extremities: Other (left BKA, right TMA ) Neurology: alert, follow commands, confused Assessment Assessment 1. Metabolic encephalopathy with underling dementia. CT without acute changes. 2. 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 3. Mild troponin elevation; highest 0.128. Most probably type II, demand ischemia secondary to above. CP free. 4. Chronic diastolic CHF; echo 11/23 with preserved LV systolic function. appears compensated 5. CAD; details unknown 6. Hypertension; controlled 7. Hyperlipidemia; statin 8. Diabetes, II 9. PAD; s/p CONTINUOUS PROCESS [employer] DRUM of the right common femoral artery. Also s/p right TMA and left BKA 10. H/o CVA Recommendations Secondary prevention measures including DAPT with ASA/Plavix Continue BB, statin therapy Consider outpatient ischemic evaluation Supportive care Justicifation of Admission Dx: Justifications for Admission: Justification of Admission Dx: Yes DANIELLA INMAN MD 05/22/21 2229: CARDIO Progress Notes Plan Plan The patient was seen and interviewed as well as examined at the bedside. The chart was reviewed. The case was discussed. Agree with the plan of care. EVA HEREDIA APRN May 22, 2021 12:06 DANIELLA INMAN MD May 22, 2021 22:29
[2021-05-22] MEDS: ENOXAPARIN 40 MG/0.4 ML SYRINGE. SQ SCH (12:41)
--- NOTE | 2021-05-22 13:49 | NUR ---
SS discussed with pt's RN and physician. Request for hospice consultation was made. Pt's son wanting to meet with hospice prior to discharge. SS phoned and faxed referral to [facility], ; fax [phone]. SS left voicemail for Reina at [facility]. Packet placed on chart.
[2021-05-22 15:00] VITALS: BP 140/66
[2021-05-22 19:30] VITALS: BP 116/65
[2021-05-22] MEDS: ATORVASTATIN CALCIUM 40 MG TABLET. PO SCH (20:31)
[2021-05-22 23:15] VITALS: BP 178/77
[2021-05-23] MEDS: LEVOTHYROXINE 50 MCG TABLET PO SCH (05:48)
[2021-05-23] MEDS: CEFEPIME HCL IV Push 1 GM VIAL. IVP SCH ×3 (05:49→20:47)
[2021-05-23 06:55] LABS: CALCIUM 8.2 mg/dL (8.5-10.1); CREATININE 1.3 mg/dL (0.7-1.3); GFR 53.8; POTASSIUM 3.1 mmol/L (3.5-5.1)
[2021-05-23 06:59] LABS: BASO % 0 % (0-3); EOS # 0.4 x10^3/uL (0.0-0.7); EOS % 4 % (0-3); HEMATOCRIT 30.8 % (39.0-53.0); HEMOGLOBIN 10.4 g/dL (13.0-17.5); LYMPH % 10 % (24-48); MEAN CORPUSCULAR HEMOGLOBIN 31 pg (25-35); MEAN CORPUSCULAR HGB CONC 34 g/dL (31-37); MEAN CORPUSCULAR VOLUME 91 fL (79-100); MONO # 0.9 x10^3/uL (0.0-1.1); MONO % 9 % (0-9); NEUT # 8.1 x10^3/uL (1.8-7.7); NEUT % 77 % (31-73); PLATELET COUNT 204 x10^3/uL (140-400); RED BLOOD COUNT 3.38 x10^6/uL (4.30-5.70); WHITE BLOOD COUNT 10.5 x10^3/uL (4.0-11.0)
[2021-05-23 07:00] VITALS: BP 166/72
[2021-05-23] MEDS: IPRATRPIUM/ALBUTEROL 0.5/2.5MG 3 ML NEBU. NEB SCH ×4 (07:48→20:09)
[2021-05-23] MEDS: INSULIN GLARGINE SYRINGE. SQ SCH ×2 (08:04→20:58)
--- NOTE | 2021-05-23 08:47 | PDOC ---
Infectious Disease Note Subjective: Subjective Patient arousable comfortable no new issues per d.w rn Vital Signs: Vital Signs Vital Signs Date Time Temp Pulse Resp B/P (MAP) Pulse Ox O2 Delivery O2 Flow Rate FiO2 05/23/21 07:49 100 Room Air 1.5 05/23/21 03:00 96 05/22/21 23:15 97.9 20 178/77 (110) 97.9 Physical Exam: PHYSICAL EXAM General alert awake male in no acute distress appears comfortable HEENT normocephalic atraumatic oropharynx clear Neck supple Lungs clear anteriorly Heart S1-S2 Abdominal soft bowel sounds present nontender Alvares in place Extremities previous left BKA unremarkable, right lower extremity erythema and warmth anterior armijo. There is an ulcer distal TMA with no drainage Derm warm dry no generalized rash except for above Neuro alert awake male in no acute distress / weakness Psych calm Medications: Inpatient Meds: Medications reviewed. Labs: Lab Laboratory Tests Test 05/22/21 12:08 05/22/21 17:14 05/22/21 21:04 05/23/21 06:25 Glucose (Fingerstick) 129 mg/dL (70-99) 238 mg/dL (70-99) 206 mg/dL (70-99) White Blood Count 10.5 x10^3/uL (4.0-11.0) Red Blood Count 3.38 x10^6/uL (4.30-5.70) Hemoglobin 10.4 g/dL (13.0-17.5) Hematocrit 30.8 % (39.0-53.0) Mean Corpuscular Volume 91 fL (79-100) Mean Corpuscular Hemoglobin 31 pg (25-35) Mean Corpuscular Hemoglobin Concent 34 g/dL (31-37) Red Cell Distribution Width 14.0 % (11.5-14.5) Platelet Count 204 x10^3/uL (140-400) Neutrophils (%) (Auto) 77 % (31-73) Lymphocytes (%) (Auto) 10 % (24-48) Monocytes (%) (Auto) 9 % (0-9) Eosinophils (%) (Auto) 4 % (0-3) Basophils (%) (Auto) 0 % (0-3) Neutrophils # (Auto) 8.1 x10^3/uL (1.8-7.7) Lymphocytes # (Auto) 1.0 x10^3/uL (1.0-4.8) Monocytes # (Auto) 0.9 x10^3/uL (0.0-1.1) Eosinophils # (Auto) 0.4 x10^3/uL (0.0-0.7) Basophils # (Auto) 0.0 x10^3/uL (0.0-0.2) Sodium Level 142 mmol/L (136-145) Potassium Level 3.1 mmol/L (3.5-5.1) Chloride Level 108 mmol/L (98-107) Carbon Dioxide Level 27 mmol/L (21-32) Anion Gap 7 (6-14) Blood Urea Nitrogen 18 mg/dL (8-26) Creatinine 1.3 mg/dL (0.7-1.3) Estimated GFR (Cockcroft-Gault) 53.8 Glucose Level 71 mg/dL (70-99) Calcium Level 8.2 mg/dL (8.5-10.1) Test 05/23/21 07:42 Glucose (Fingerstick) 70 mg/dL (70-99) Objective: Assessment: Fever improved Leukocytosis could be reactive Encephalopathy CT head negative for acute process improving Chronic nonhealing right diabetic foot wound with history of TMA in the past -x ray neg for OM History of left BKA Diabetes mellitus with neuropathy Peripheral vascular disease Chronic renal insufficiency History of dementia and CVA [facility] resident Chronic diastolic CHF Anemia Plan: Plan of Care Cont cefepime and Flagyl,was on zosyn Continue linezolid Anemia per primary Agree with palliative care Local wound care Maintain aspiration precautions Discussed with JESSA MILLAN MD May 23, 2021 08:47
[2021-05-23] MEDS: ASPIRIN ENTERIC COATED 81 MG TABLET.DR. PO SCH (09:34)
[2021-05-23] MEDS: CLOPIDOGREL BISULFATE 75 MG TABLET PO SCH (09:34)
[2021-05-23] MEDS: LACTOBACILLUS RHAMNOSUS GG 1 CAPSULE. PO SCH ×2 (09:34→20:47)
[2021-05-23] MEDS: POLYVINYL ALCOHOL 1.4% OPHTH SOLUTION 15ML BOTTLE. OU SCH ×4 (09:34→20:48)
[2021-05-23] MEDS: METOPROLOL SUCC 24HR ER 25 MG TAB.ER.24H. PO SCH (09:35)
[2021-05-23] MEDS: SERTRALINE 50 MG TABLET. PO SCH (09:35)
--- NOTE | 2021-05-23 09:47 | PDOC ---
DATE OF SERVICE DATE: 05/23/21 TIME: 09:46 SUBJECTIVE ROS stable, No new concerns per nursing OBJECTIVE Vital Signs Vital Signs Date Time Temp Pulse Resp B/P (MAP) Pulse Ox O2 Delivery O2 Flow Rate FiO2 05/23/21 09:35 96 178/77 05/23/21 07:49 100 Room Air 1.5 05/23/21 07:00 98.4 16 98.4 I & 0 Intake and Output 05/23/21 07:00 Intake Total 240 ml Output Total 1 ml Balance 239 ml Intake Oral 240 ml Stool Total 1 ml # Voids 3 # Bowel Movements 2 PHYSICAL EXAM Physical Exam GENERAL:NAD HEENT: Om moist NECK: Supple. LUNGS: Clear to auscultation.Non labored HEART: Normal S1, S2. ABDOMEN: Obese, soft, nontender with bowel sounds present. EXTREMITIES: Previous left BKA SKIN: Warm to touch. No signs of generalized rash. NEUROLOGIC: Alert, answering simple questions, poor historian. No bui DIAGNOSIS/ASSESSMENT Assessment & Plan ABA - Vasomotor , resolved , back to his baseline ,Non Oliguric, fluid balance avoid nephrotoxins, supportive care CKD STAGE 3 b - baseline Cr ~2.0, No show for his follow up appts as OP .Marked left hydroureteronephrosis-Chronic with ureteral stricture (in the past pt had refused Urology consult) CT - point of transition is in the ureter at the pelvic brim, no focal abnormality such as a calculus, focal stricture cannot be excluded. Hydronephrosis appears long-standing as there is severe cortical thinning of the left kidney. 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 Diabetes mellitus with neuropathy Peripheral vascular disease History of dementia and CVA Chronic diastolic CHF COMMENT/RELEVANT DATA Meds Current Medications Medications (Trade) Dose Ordered Sig/Zeeshan Start Time Stop Time Status Last Admin Dose Admin Acetaminophen (Tylenol Supp) 650 mg PRN Q4HRS PRN 05/18/21 12:00 Acetaminophen (Tylenol) 650 mg PRN Q4HRS PRN 05/18/21 12:00 Albuterol/ Ipratropium (Duoneb) 3 ml Q4HRS W/A 05/18/21 14:00 05/23/21 07:48 3 ML Aspirin (Ecotrin) 81 mg DAILYWBKFT 05/18/21 08:00 05/23/21 09:34 81 MG Atorvastatin Calcium (Lipitor) 40 mg HS 05/18/21 21:00 05/22/21 20:31 40 MG Cefepime HCl (Maxipime) 1 gm Q8HRS 05/19/21 14:00 05/23/21 05:49 1 GM Clopidogrel Bisulfate (Plavix) 75 mg DAILYWBKFT 05/18/21 08:00 05/23/21 09:34 75 MG Docusate Sodium (Colace) 100 mg PRN BID PRN 05/18/21 12:00 Enoxaparin Sodium (Lovenox 40mg Syringe) 40 mg Q24H 05/18/21 12:00 05/22/21 12:41 40 MG Furosemide (Lasix) 20 mg 1X ONCE 05/17/21 23:45 05/17/21 23:46 DC 05/18/21 00:36 20 MG Glycerin/ Hypromellose/ Polyethylene (Artificial Tears) 1 drop QID 05/18/21 09:00 05/23/21 09:34 1 DROP Guaifenesin (Robitussin) 200 mg PRN Q4HRS PRN 05/18/21 12:00 Insulin Glargine (Lantus Syringe) 15 unit BID 05/18/21 09:00 05/22/21 20:44 15 UNIT Insulin Human Lispro (HumaLOG) 5 units DAILYWLUN 05/18/21 12:00 05/21/21 12:45 5 UNITS Lactobacillus Rhamnosus (Culturelle) 1 cap BID 05/19/21 21:00 05/23/21 09:34 1 CAP Levothyroxine Sodium (Synthroid) 50 mcg DAILY06 05/18/21 06:00 05/23/21 05:48 50 MCG Linezolid/Dextrose 300 ml @ 300 mls/hr Q12HR 05/19/21 11:00 05/23/21 09:32 300 MLS/HR Lorazepam (Ativan Inj) 1 mg 1X ONCE 05/17/21 21:30 05/17/21 21:31 DC Metoprolol Succinate (Toprol Xl) 25 mg DAILY 05/18/21 09:00 05/23/21 09:35 25 MG Metronidazole 100 ml @ 100 mls/hr Q12HR 05/19/21 21:00 05/23/21 09:31 100 MLS/HR Morphine Sulfate (Morphine Sulfate) 2 mg PRN Q2HR PRN 05/17/21 20:45 05/18/21 20:44 DC Ondansetron HCl (Zofran) 4 mg PRN Q4HRS PRN 05/18/21 12:00 Piperacillin Sod/ Tazobactam Sod (Zosyn Per Pharmacy) 1 each PRN DAILY PRN 05/18/21 11:15 05/19/21 10:41 DC Piperacillin Sod/ Tazobactam Sod 2.25 gm/Sodium Chloride 50 ml @ 100 mls/hr Q6HRS 05/18/21 12:00 05/19/21 10:39 DC 05/19/21 05:38 100 MLS/HR Sennosides (Senna) 8.6 mg PRN BID PRN 05/17/21 23:30 Sertraline HCl (Zoloft) 125 mg DAILY 05/18/21 09:00 05/23/21 09:35 125 MG Sodium Monofluorophosphate (Fleet Adult) 133 ml PRN DAILY PRN 05/18/21 12:00 Sodium Polystyrene Sulfonate (Kayexalate) 15 gm 1X ONCE 05/18/21 11:30 05/18/21 11:31 DC 05/18/21 12:00 15 GM Sodium Chloride 1,000 ml @ 65 mls/hr [id number] 05/18/21 12:00 05/22/21 23:48 65 MLS/HR Sodium Chloride (Normal Saline Flush) 3 ml QSHIFT PRN 05/18/21 12:00 Lab Laboratory Tests Test 05/22/21 12:08 05/22/21 17:14 05/22/21 21:04 05/23/21 06:25 Glucose (Fingerstick) 129 mg/dL (70-99) 238 mg/dL (70-99) 206 mg/dL (70-99) White Blood Count 10.5 x10^3/uL (4.0-11.0) Red Blood Count 3.38 x10^6/uL (4.30-5.70) Hemoglobin 10.4 g/dL (13.0-17.5) Hematocrit 30.8 % (39.0-53.0) Mean Corpuscular Volume 91 fL (79-100) Mean Corpuscular Hemoglobin 31 pg (25-35) Mean Corpuscular Hemoglobin Concent 34 g/dL (31-37) Red Cell Distribution Width 14.0 % (11.5-14.5) Platelet Count 204 x10^3/uL (140-400) Neutrophils (%) (Auto) 77 % (31-73) Lymphocytes (%) (Auto) 10 % (24-48) Monocytes (%) (Auto) 9 % (0-9) Eosinophils (%) (Auto) 4 % (0-3) Basophils (%) (Auto) 0 % (0-3) Neutrophils # (Auto) 8.1 x10^3/uL (1.8-7.7) Lymphocytes # (Auto) 1.0 x10^3/uL (1.0-4.8) Monocytes # (Auto) 0.9 x10^3/uL (0.0-1.1) Eosinophils # (Auto) 0.4 x10^3/uL (0.0-0.7) Basophils # (Auto) 0.0 x10^3/uL (0.0-0.2) Sodium Level 142 mmol/L (136-145) Potassium Level 3.1 mmol/L (3.5-5.1) Chloride Level 108 mmol/L (98-107) Carbon Dioxide Level 27 mmol/L (21-32) Anion Gap 7 (6-14) Blood Urea Nitrogen 18 mg/dL (8-26) Creatinine 1.3 mg/dL (0.7-1.3) Estimated GFR (Cockcroft-Gault) 53.8 Glucose Level 71 mg/dL (70-99) Calcium Level 8.2 mg/dL (8.5-10.1) Test 05/23/21 07:42 Glucose (Fingerstick) 70 mg/dL (70-99) Results All relevant outside records, renal labs, imaging studies, telemetry/EKG's were reviewed. Justicifation of Admission Dx: Justifications for Admission: Justification of Admission Dx: Yes RICHIE GONZALEZ MD May 23, 2021 09:47
[2021-05-23 11:00] VITALS: BP_SYST 105; BP_SYST 112; BP_DIAS 62; BP_DIAS 67
[2021-05-23] MEDS ORDERED: POTASSIUM BICARB 20 MEQ EFFERVESCENT TABLET. PO ONE (11:30)
[2021-05-23] MEDS: ENOXAPARIN 40 MG/0.4 ML SYRINGE. SQ SCH (12:00)
[2021-05-23] MEDS: INSULIN LISPRO 300 UNITS/3 ML VIAL. SQ SCH (12:07)
--- NOTE | 2021-05-23 12:39 | PDOC ---
[employer] PROGRESS NOTE Date of Service DOS: DATE: 05/23/21 TIME: 12:31 Chief Complaint Chief Complaint VTE Prophylaxis Ordered VTE Prophylaxis Devices: No VTE Pharmacological Prophylaxi: Yes Assessment/Plan Assessment/Plan IMPRESSION: Acute metabolic encephalopathy No acute intracranial hemorrhage. 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 Patient is alert but NOT oriented to self BUT poor historian. 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 Findings are stable WBC 13.7 . WITH LEFT SHIFT, blood culture done x 1 in ER 76-year-old male with history of left BKA in 2019 He has a history of a right TMA He has a very small right foot wound on the plantar surface overlying his fifth metatarsal head minimal erythema // right TMA He has been treated for several other medical issues, including acute infectious encephalopathy, HCAP, ABA, anemia. He is a poor historian, history obtaining is difficult. hx RECENT percutaneous arterial intervention on the left leg, The patient was unable to give me accurate history. Wound care consulted, NEPHROLOGY CONSULTED PO KAYEXYLATE 15 GM X 1 pending, Cardiology consulted. emperic iv zosyn dosed renally hx Right DFU with underlying peripheral artery disease, status post recent angiogram with balloon angioplasty MARCH 2021 05/23/2021: Afebrile overnight, no complaints this morning. Bacterial sensitivities resulted: Continue with cefepime, Flagyl, Zyvox per ID. I discussion with patient's family after their conversation with [facility]; they are agreeable to pursue hospice care at [facility] once stable. Critical care time 30 minutes spent reviewing charts, reviewing labs, reviewing imaging, discussion with patient and family. Advance Care Planning: Total time spent [id number] with patient 16 minutes in discussion with goals of care, comfort care, end-of-life care, pain management, code status; patient names son as surrogate decision-maker. 05/22/2021: Patient seen and evaluated bedside. Afebrile, currently breathing room air; no new complaints today. Blood cultures resulted Staph aureus. We will continue cefepime, metronidazole, and Zyvox, per ID. Await blood culture susceptibilities. 05/21/2021: Afebrile, currently breathing on 2 L nasal cannula. He had positive blood cultures, gram-positive cocci in clusters 1 of 4 bottles suggesting staph. Currently on cefepime, metronidazole, and Zyvox, per ID. Denies any nausea or pain currently. Continue IV antibiotics. 05-20 Acute metabolic encephalopathy, slow to improve No acute intracranial hemorrhage. 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 Right LE vascular compromise Marked left hydroureteronephrosis-Chronic with ureteral stricture Possible sundowning admit blood cultures emperic iv antibiotics, zosyn, renal dosing Nephrology consult cvc bed Cardiology consulted wound care nurse consulted duonebs qid CRP PROCALCITONIN Trend troponin i DC Zosyn IV empiric cefepime and Flagyl Continue linezolid Change Alvares if not done already Right foot x-ray anticipate LOS > 3 DAYS 28 min pt exam, chart review, > 50% of time spent with exam, chart review, pt care coordination Vitals/I&O Vitals/I&O: Vital Signs Date Time Temp Pulse Resp B/P (MAP) Pulse Ox O2 Delivery O2 Flow Rate FiO2 05/23/21 11:51 98 Room Air 05/23/21 09:35 96 178/77 05/23/21 07:49 1.5 05/23/21 07:00 98.4 16 98.4 I & O 05/22/21 05/22/21 05/23/21 15:00 23:00 07:00 Intake Total 240 ml 0 ml Output Total 1 ml Balance 240 ml -1 ml 0 ml Physical Exam Physical Exam: General alert awake male in no acute distress appears comfortable HEENT normocephalic atraumatic oropharynx clear Neck supple Lungs clear anteriorly Heart S1-S2 Abdominal soft bowel sounds present nontender Alvares in place Extremities previous left BKA unremarkable, right lower extremity erythema and warmth anterior armijo. There is an ulcer distal TMA with no drainage Derm warm dry no generalized rash except for above Neuro alert awake male in no acute distress / weakness Psych calm General: Other (Mildly more alert today.) Heart: Regular rate Lungs: Clear Abdomen: Normal bowel sounds Extremities: No clubbing, No cyanosis Labs Labs: Laboratory Tests Test 05/22/21 17:14 05/22/21 21:04 05/23/21 06:25 05/23/21 07:42 Glucose (Fingerstick) 238 mg/dL (70-99) 206 mg/dL (70-99) 70 mg/dL (70-99) White Blood Count 10.5 x10^3/uL (4.0-11.0) Red Blood Count 3.38 x10^6/uL (4.30-5.70) Hemoglobin 10.4 g/dL (13.0-17.5) Hematocrit 30.8 % (39.0-53.0) Mean Corpuscular Volume 91 fL (79-100) Mean Corpuscular Hemoglobin 31 pg (25-35) Mean Corpuscular Hemoglobin Concent 34 g/dL (31-37) Red Cell Distribution Width 14.0 % (11.5-14.5) Platelet Count 204 x10^3/uL (140-400) Neutrophils (%) (Auto) 77 % (31-73) Lymphocytes (%) (Auto) 10 % (24-48) Monocytes (%) (Auto) 9 % (0-9) Eosinophils (%) (Auto) 4 % (0-3) Basophils (%) (Auto) 0 % (0-3) Neutrophils # (Auto) 8.1 x10^3/uL (1.8-7.7) Lymphocytes # (Auto) 1.0 x10^3/uL (1.0-4.8) Monocytes # (Auto) 0.9 x10^3/uL (0.0-1.1) Eosinophils # (Auto) 0.4 x10^3/uL (0.0-0.7) Basophils # (Auto) 0.0 x10^3/uL (0.0-0.2) Sodium Level 142 mmol/L (136-145) Potassium Level 3.1 mmol/L (3.5-5.1) Chloride Level 108 mmol/L (98-107) Carbon Dioxide Level 27 mmol/L (21-32) Anion Gap 7 (6-14) Blood Urea Nitrogen 18 mg/dL (8-26) Creatinine 1.3 mg/dL (0.7-1.3) Estimated GFR (Cockcroft-Gault) 53.8 Glucose Level 71 mg/dL (70-99) Calcium Level 8.2 mg/dL (8.5-10.1) Test 05/23/21 11:59 Glucose (Fingerstick) 174 mg/dL (70-99) Assessment and Plan Assessmemt and Plan Problems Medical Problems: (1) Altered mental status Status: Acute Comment Review of Relevant I have reviewed the following items magalie (where applicable) has been applied. Medications: Current Medications Medications (Trade) Dose Ordered Sig/Zeeshan Route PRN Reason Start Time Stop Time Status Last Admin Dose Admin Potassium Bicarbonate (Potassium Effervescent Tablet) 40 meq 1X ONCE PO 05/23/21 11:30 05/23/21 11:31 DC 05/23/21 12:00 Justifications for Admission General Conditions Altered mental status?: Yes Justification of admission: Patient has tachycardia (> 100 beats per minute) or hypotension (SBP < 90 mm Hg) leading to inadequate systemic perfusion as indicated by severe/persistent altered mental status. Other justification for admit: toxic metabolic encephalopathy Chest Pain Indications Justification for admission: aba Other Justification Sepsis and encephalopathy RAQUEL EVANS MD May 23, 2021 12:39
--- NOTE | 2021-05-23 12:59 | NUR ---
SS following up with discharge planning. SS reviewed pt chart and discussed with pt RN. Pt is currently requiring oxygen at two liters nasal canula. Pt is LT resident from [facility], ; fax [phone]. Pt on IV Zyvox, IV Cefepime, and IV Flagyl. DNR. Pt's family met with [facility], ; fax [phone], this morning and is agreeable to hospice at [facility] when medically stable. [facility] to meet with pt's family to sign consents. SS will continue to follow for discharge planning.
[2021-05-23 15:00] VITALS: BP 159/69
[2021-05-23] MEDS: IV NORMAL SALINE 1000ML BAG 1,000 ML IV SCH (15:54)
[2021-05-23 19:50] VITALS: BP 169/76
[2021-05-23] MEDS: ATORVASTATIN CALCIUM 40 MG TABLET. PO SCH (20:47)
[2021-05-23] MEDS: LOPERAMIDE 2 MG CAPSULE PO PRN (20:47)
[2021-05-23 22:30] VITALS: BP 171/89
[2021-05-24] MEDS: LEVOTHYROXINE 50 MCG TABLET PO SCH (05:58)
[2021-05-24] MEDS: CEFEPIME HCL IV Push 1 GM VIAL. IVP SCH ×2 (05:58→06:00)
[2021-05-24] MEDS: IV NORMAL SALINE 1000ML BAG 1,000 ML IV SCH ×3 (06:01→22:00)
[2021-05-24 07:00] VITALS: BP 178/84
[2021-05-24] MEDS: IPRATRPIUM/ALBUTEROL 0.5/2.5MG 3 ML NEBU. NEB SCH ×6 (07:27→22:00)
[2021-05-24 07:36] LABS: BASO % 0 % (0-3); EOS # 0.5 x10^3/uL (0.0-0.7); EOS % 5 % (0-3); HEMATOCRIT 31.9 % (39.0-53.0); HEMOGLOBIN 10.6 g/dL (13.0-17.5); LYMPH # 0.9 x10^3/uL (1.0-4.8); LYMPH % 9 % (24-48); MEAN CORPUSCULAR HEMOGLOBIN 30 pg (25-35); MEAN CORPUSCULAR HGB CONC 33 g/dL (31-37); MEAN CORPUSCULAR VOLUME 92 fL (79-100); MONO # 0.8 x10^3/uL (0.0-1.1); MONO % 8 % (0-9); NEUT # 7.6 x10^3/uL (1.8-7.7); NEUT % 78 % (31-73); PLATELET COUNT 247 x10^3/uL (140-400); RED BLOOD COUNT 3.48 x10^6/uL (4.30-5.70); RED CELL DISTRIBUTION WIDTH 14.1 % (11.5-14.5); WHITE BLOOD COUNT 9.7 x10^3/uL (4.0-11.0)
[2021-05-24 07:46] LABS: CALCIUM 7.9 mg/dL (8.5-10.1); CREATININE 1.3 mg/dL (0.7-1.3); GFR 53.8; POTASSIUM 3.6 mmol/L (3.5-5.1)
--- NOTE | 2021-05-24 08:46 | PDOC ---
Infectious Disease Note Subjective: Subjective Patient says feels cold comfortable no new issues per d.w rn Vital Signs: Vital Signs Vital Signs Date Time Temp Pulse Resp B/P (MAP) Pulse Ox O2 Delivery O2 Flow Rate FiO2 05/24/21 07:46 95 Room Air 05/24/21 03:00 73 05/23/21 22:30 97.9 18 171/89 (116) 97.9 05/23/21 19:33 2.0 Physical Exam: PHYSICAL EXAM General alert awake male in no acute distress appears comfortable HEENT normocephalic atraumatic oropharynx clear Neck supple Lungs clear anteriorly Heart S1-S2 Abdominal soft bowel sounds present nontender Alvares in place Extremities previous left BKA unremarkable, right lower extremity erythema and warmth anterior armijo. There is an ulcer distal TMA with no drainage Derm warm dry no generalized rash except for above Neuro alert awake male in no acute distress / weakness Psych calm Medications: Inpatient Meds: Medications reviewed. Labs: Lab Laboratory Tests Test 05/23/21 11:59 05/23/21 16:51 05/24/21 06:50 05/24/21 07:45 Glucose (Fingerstick) 174 mg/dL (70-99) 169 mg/dL (70-99) 127 mg/dL (70-99) White Blood Count 9.7 x10^3/uL (4.0-11.0) Red Blood Count 3.48 x10^6/uL (4.30-5.70) Hemoglobin 10.6 g/dL (13.0-17.5) Hematocrit 31.9 % (39.0-53.0) Mean Corpuscular Volume 92 fL (79-100) Mean Corpuscular Hemoglobin 30 pg (25-35) Mean Corpuscular Hemoglobin Concent 33 g/dL (31-37) Red Cell Distribution Width 14.1 % (11.5-14.5) Platelet Count 247 x10^3/uL (140-400) Neutrophils (%) (Auto) 78 % (31-73) Lymphocytes (%) (Auto) 9 % (24-48) Monocytes (%) (Auto) 8 % (0-9) Eosinophils (%) (Auto) 5 % (0-3) Basophils (%) (Auto) 0 % (0-3) Neutrophils # (Auto) 7.6 x10^3/uL (1.8-7.7) Lymphocytes # (Auto) 0.9 x10^3/uL (1.0-4.8) Monocytes # (Auto) 0.8 x10^3/uL (0.0-1.1) Eosinophils # (Auto) 0.5 x10^3/uL (0.0-0.7) Basophils # (Auto) 0.0 x10^3/uL (0.0-0.2) Sodium Level 141 mmol/L (136-145) Potassium Level 3.6 mmol/L (3.5-5.1) Chloride Level 106 mmol/L (98-107) Carbon Dioxide Level 29 mmol/L (21-32) Anion Gap 6 (6-14) Blood Urea Nitrogen 14 mg/dL (8-26) Creatinine 1.3 mg/dL (0.7-1.3) Estimated GFR (Cockcroft-Gault) 53.8 Glucose Level 141 mg/dL (70-99) Calcium Level 7.9 mg/dL (8.5-10.1) Micro RUN DATE: 05/23/21 [facility] LAB *LIVE* PAGE 1 RUN TIME: 0856 Specimen Inquiry ---- -------- PATIENT: EVE DEMPSEY ACCT: [id number] LOC: [address] [place] [address] U: [id number] AGE/SX: 76/M ROOM: 204 RE05/17/[address]: KYAW HERNANDEZ MD : 1945 BED: 1 DIS: STATUS: ADM IN TLOC: SPEC #: [id number] LILLY: 05/18/21 STATUS: COMP REQ #: [id number] RECD: 05/18/[address]: ELISABETH WHEATLEY APRN SOURCE: BLOOD ENTR: 05/21/21-1213 [facility] DR: LOVE CRAIG MD [facility]: ORDERED: BLD CULT - LC Procedure Result BLOOD CULTURE LC Final Final GRAM POSITIVE COCCI FINAL ID= [STAPHYLOCOCCUS AUREUS (MRSA)] STAPHYLOCOCCUS AUREUS (MRSA) ANTIMICROBIAL SUSCEPTIBILITY Final Comment POS NORMA TYPE 38 STAPHYLOCOCCUS AUREUS (MRSA) ANTIBIOTIC RESULT INTERPRETATION AZITHROMYCIN >4 R CLINDAMYCIN <=0.25 S CEFOXITIN SCREEN >4 POS CIPROFLOXACIN >2 R CEFTAROLINE <=0.5 S DAPTOMYCIN <=0.5 S ERYTHROMYCIN >4 R GENTAMICIN <=4 S INDUCIBLE CLINDAMYCIN <=4/0.5 NEG LINEZOLID 2 S LEVOFLOXACIN 4 I OXACILLIN >2 R PENICILLIN >2 R* RIFAMPIN <=1 S TRIMETHOPRIM/SULFAMETHOXAZOLE <=0.5/9.5 S TETRACYCLINE <=4 S VANCOMYCIN 1 S Unless otherwise specified, Testing Performed by: [address] [address] For Inquires, the Physician may contact the Microbiology department at [phone] END OF REPORT Objective: Assessment: MRSA bacteremia May 21 Fever improved Leukocytosis could be reactive Encephalopathy CT head negative for acute process improving Chronic nonhealing right diabetic foot wound with history of TMA in the past -x ray neg for OM History of left BKA Diabetes mellitus with neuropathy Peripheral vascular disease Chronic renal insufficiency History of dementia and CVA longterm resident Chronic diastolic CHF Anemia Plan: Plan of Care DC linezolid Start daptomycin Repeated BC DC cefepime and Flagyl,was on zosyn Monitor temp pattern and labs Monitor cults Anemia per primary Agree with palliative care Local wound care Maintain aspiration precautions Family has decided for hospice Antibiotics can be discontinued depending on final goals of treatment Discussed with JESSA MILLAN MD May 24, 2021 08:45
[2021-05-24] MEDS: ASPIRIN ENTERIC COATED 81 MG TABLET.DR. PO SCH (08:53)
[2021-05-24] MEDS: CLOPIDOGREL BISULFATE 75 MG TABLET PO SCH (08:53)
[2021-05-24] MEDS: SERTRALINE 50 MG TABLET. PO SCH (08:53)
[2021-05-24] MEDS: METOPROLOL SUCC 24HR ER 25 MG TAB.ER.24H. PO SCH (08:53)
[2021-05-24] MEDS: POLYVINYL ALCOHOL 1.4% OPHTH SOLUTION 15ML BOTTLE. OU SCH ×4 (08:54→21:00)
[2021-05-24] MEDS: LOPERAMIDE 2 MG CAPSULE PO PRN (08:54)
[2021-05-24] MEDS: LACTOBACILLUS RHAMNOSUS GG 1 CAPSULE. PO SCH ×2 (08:54→21:46)
[2021-05-24] MEDS: INSULIN GLARGINE SYRINGE. SQ SCH ×2 (09:01→21:47)
--- NOTE | 2021-05-24 09:28 | PDOC ---
DATE OF SERVICE DATE: 05/24/21 TIME: 09:28 SUBJECTIVE ROS stable, No new concerns per nursing OBJECTIVE Vital Signs Vital Signs Date Time Temp Pulse Resp B/P (MAP) Pulse Ox O2 Delivery O2 Flow Rate FiO2 05/24/21 08:53 73 178/84 05/24/21 07:46 95 Room Air 05/24/21 07:00 98.1 18 98.1 05/23/21 19:33 2.0 I & 0 Intake and Output 05/24/21 07:00 Intake Total 936 ml Balance 936 ml Intake Oral 936 ml # Voids 6 # Bowel Movements 4 PHYSICAL EXAM Physical Exam GENERAL:NAD HEENT: Om moist NECK: Supple. LUNGS: Clear to auscultation.Non labored HEART: Normal S1, S2. ABDOMEN: Obese, soft, nontender with bowel sounds present. EXTREMITIES: Previous left BKA SKIN: Warm to touch. No signs of generalized rash. NEUROLOGIC: Alert, answering simple questions, poor historian. No bui DIAGNOSIS/ASSESSMENT Assessment & Plan ABA - Vasomotor , resolved , back to his baseline ,Non Oliguric, fluid balance avoid nephrotoxins, supportive care CKD STAGE 3 b - baseline Cr ~2.0, No show for his follow up appts as OP .Marked left hydroureteronephrosis-Chronic with ureteral stricture (in the past pt had refused Urology consult) CT - point of transition is in the ureter at the pelvic brim, no focal abnormality such as a calculus, focal stricture cannot be excluded. Hydronephrosis appears long-standing as there is severe cortical thinning of the left kidney. Fever/ Leukocytosis resolved HTN - cardiology managing Chronic nonhealing right diabetic foot wound with history of TMA in the past History of left BKA Diabetes mellitus with neuropathy Peripheral vascular disease History of dementia and CVA Chronic diastolic CHF COMMENT/RELEVANT DATA Meds Current Medications Medications (Trade) Dose Ordered Sig/Zeeshan Start Time Stop Time Status Last Admin Dose Admin Acetaminophen (Tylenol Supp) 650 mg PRN Q4HRS PRN 05/18/21 12:00 Acetaminophen (Tylenol) 650 mg PRN Q4HRS PRN 05/18/21 12:00 Albuterol/ Ipratropium (Duoneb) 3 ml Q4HRS W/A 05/18/21 14:00 05/24/21 07:48 3 ML Aspirin (Ecotrin) 81 mg DAILYWBKFT 05/18/21 08:00 05/24/21 08:53 81 MG Atorvastatin Calcium (Lipitor) 40 mg HS 05/18/21 21:00 05/23/21 20:47 40 MG Cefepime HCl (Maxipime) 1 gm Q8HRS 05/19/21 14:00 05/23/21 20:47 1 GM Clopidogrel Bisulfate (Plavix) 75 mg DAILYWBKFT 05/18/21 08:00 05/24/21 08:53 75 MG Daptomycin 480 mg/ Sodium Chloride 50 ml @ 100 mls/hr Q24H 05/24/21 10:00 Docusate Sodium (Colace) 100 mg PRN BID PRN 05/18/21 12:00 Enoxaparin Sodium (Lovenox 40mg Syringe) 40 mg Q24H 05/18/21 12:00 05/23/21 12:00 40 MG Furosemide (Lasix) 20 mg 1X ONCE 05/17/21 23:45 05/17/21 23:46 DC 05/18/21 00:36 20 MG Glycerin/ Hypromellose/ Polyethylene (Artificial Tears) 1 drop QID 05/18/21 09:00 05/24/21 08:54 1 DROP Guaifenesin (Robitussin) 200 mg PRN Q4HRS PRN 05/18/21 12:00 Insulin Glargine (Lantus Syringe) 15 unit BID 05/18/21 09:00 05/24/21 09:01 15 UNIT Insulin Human Lispro (HumaLOG) 5 units DAILYWLUN 05/18/21 12:00 05/23/21 12:07 5 UNITS Lactobacillus Rhamnosus (Culturelle) 1 cap BID 05/19/21 21:00 05/24/21 08:54 1 CAP Levothyroxine Sodium (Synthroid) 50 mcg DAILY06 05/18/21 06:00 05/24/21 05:58 50 MCG Linezolid/Dextrose 300 ml @ 300 mls/hr Q12HR 05/19/21 11:00 05/24/21 08:45 DC 05/23/21 20:48 300 MLS/HR Loperamide HCl (Imodium) 2 mg PRN Q15MIN PRN 05/23/21 20:15 05/24/21 08:54 2 MG Lorazepam (Ativan Inj) 1 mg 1X ONCE 05/17/21 21:30 05/17/21 21:31 DC Metoprolol Succinate (Toprol Xl) 25 mg DAILY 05/18/21 09:00 05/24/21 08:53 25 MG Metronidazole 100 ml @ 100 mls/hr Q12HR 05/19/21 21:00 05/23/21 20:47 100 MLS/HR Morphine Sulfate (Morphine Sulfate) 2 mg PRN Q2HR PRN 05/17/21 20:45 05/18/21 20:44 DC Ondansetron HCl (Zofran) 4 mg PRN Q4HRS PRN 05/18/21 12:00 Piperacillin Sod/ Tazobactam Sod (Zosyn Per Pharmacy) 1 each PRN DAILY PRN 05/18/21 11:15 05/19/21 10:41 DC Piperacillin Sod/ Tazobactam Sod 2.25 gm/Sodium Chloride 50 ml @ 100 mls/hr Q6HRS 05/18/21 12:00 05/19/21 10:39 DC 05/19/21 05:38 100 MLS/HR Potassium Bicarbonate (Potassium Effervescent Tablet) 40 meq 1X ONCE 05/23/21 11:30 05/23/21 11:31 DC 05/23/21 12:00 40 MEQ Sennosides (Senna) 8.6 mg PRN BID PRN 05/17/21 23:30 Sertraline HCl (Zoloft) 125 mg DAILY 05/18/21 09:00 05/24/21 08:53 125 MG Sodium Monofluorophosphate (Fleet Adult) 133 ml PRN DAILY PRN 05/18/21 12:00 Sodium Polystyrene Sulfonate (Kayexalate) 15 gm 1X ONCE 05/18/21 11:30 05/18/21 11:31 DC 05/18/21 12:00 15 GM Sodium Chloride 1,000 ml @ 65 mls/hr [id number] 05/18/21 12:00 05/23/21 15:54 65 MLS/HR Sodium Chloride (Normal Saline Flush) 3 ml QSHIFT PRN 05/18/21 12:00 Lab Laboratory Tests Test 05/23/21 11:59 05/23/21 16:51 05/24/21 06:50 05/24/21 07:45 Glucose (Fingerstick) 174 mg/dL (70-99) 169 mg/dL (70-99) 127 mg/dL (70-99) White Blood Count 9.7 x10^3/uL (4.0-11.0) Red Blood Count 3.48 x10^6/uL (4.30-5.70) Hemoglobin 10.6 g/dL (13.0-17.5) Hematocrit 31.9 % (39.0-53.0) Mean Corpuscular Volume 92 fL (79-100) Mean Corpuscular Hemoglobin 30 pg (25-35) Mean Corpuscular Hemoglobin Concent 33 g/dL (31-37) Red Cell Distribution Width 14.1 % (11.5-14.5) Platelet Count 247 x10^3/uL (140-400) Neutrophils (%) (Auto) 78 % (31-73) Lymphocytes (%) (Auto) 9 % (24-48) Monocytes (%) (Auto) 8 % (0-9) Eosinophils (%) (Auto) 5 % (0-3) Basophils (%) (Auto) 0 % (0-3) Neutrophils # (Auto) 7.6 x10^3/uL (1.8-7.7) Lymphocytes # (Auto) 0.9 x10^3/uL (1.0-4.8) Monocytes # (Auto) 0.8 x10^3/uL (0.0-1.1) Eosinophils # (Auto) 0.5 x10^3/uL (0.0-0.7) Basophils # (Auto) 0.0 x10^3/uL (0.0-0.2) Sodium Level 141 mmol/L (136-145) Potassium Level 3.6 mmol/L (3.5-5.1) Chloride Level 106 mmol/L (98-107) Carbon Dioxide Level 29 mmol/L (21-32) Anion Gap 6 (6-14) Blood Urea Nitrogen 14 mg/dL (8-26) Creatinine 1.3 mg/dL (0.7-1.3) Estimated GFR (Cockcroft-Gault) 53.8 Glucose Level 141 mg/dL (70-99) Calcium Level 7.9 mg/dL (8.5-10.1) Results All relevant outside records, renal labs, imaging studies, telemetry/EKG's were reviewed. Justicifation of Admission Dx: Justifications for Admission: Justification of Admission Dx: Yes RICHIE GONZALEZ MD May 24, 2021 09:28
[2021-05-24 11:00] VITALS: BP 153/69
[2021-05-24] MEDS: INSULIN LISPRO 300 UNITS/3 ML VIAL. SQ SCH (12:00)
[2021-05-24] MEDS: ENOXAPARIN 40 MG/0.4 ML SYRINGE. SQ SCH (12:30)
--- NOTE | 2021-05-24 12:46 | PDOC ---
[employer] PROGRESS NOTE Date of Service DOS: DATE: 05/24/21 TIME: 12:42 Chief Complaint Chief Complaint VTE Prophylaxis Ordered VTE Prophylaxis Devices: No VTE Pharmacological Prophylaxi: Yes Assessment/Plan Assessment/Plan IMPRESSION: Acute metabolic encephalopathy No acute intracranial hemorrhage. 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 Patient is alert but NOT oriented to self BUT poor historian. 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 Findings are stable WBC 13.7 . WITH LEFT SHIFT, blood culture done x 1 in ER 76-year-old male with history of left BKA in 2019 He has a history of a right TMA He has a very small right foot wound on the plantar surface overlying his fifth metatarsal head minimal erythema // right TMA He has been treated for several other medical issues, including acute infectious encephalopathy, HCAP, ABA, anemia. He is a poor historian, history obtaining is difficult. hx RECENT percutaneous arterial intervention on the left leg, The patient was unable to give me accurate history. Wound care consulted, NEPHROLOGY CONSULTED PO KAYEXYLATE 15 GM X 1 pending, Cardiology consulted. emperic iv zosyn dosed renally hx Right DFU with underlying peripheral artery disease, status post recent angiogram with balloon angioplasty MARCH 2021 05/24/2021: No acute events overnight, patient resting comfortably in bed. Antibiotics have been switched to daptomycin, per ID. Repeat blood cultures pending. Discussed with Dr. Hernandez, family has agreed with hospice and will discuss discontinuing antibiotics pending goals of treatment. 05/23/2021: Afebrile overnight, no complaints this morning. Bacterial sensitivities resulted: Continue with cefepime, Flagyl, Zyvox per ID. I discussion with patient's family after their conversation with [facility]; they are agreeable to pursue hospice care at [facility] once stable. Critical care time 30 minutes spent reviewing charts, reviewing labs, reviewing imaging, discussion with patient and family. Advance Care Planning: Total time spent [id number] with patient 16 minutes in discussion with goals of care, comfort care, end-of-life care, pain management, code status; patient names son as surrogate decision-maker. 05/22/2021: Patient seen and evaluated bedside. Afebrile, currently breathing room air; no new complaints today. Blood cultures resulted Staph aureus. We will continue cefepime, metronidazole, and Zyvox, per ID. Await blood culture susceptibilities. 05/21/2021: Afebrile, currently breathing on 2 L nasal cannula. He had positive blood cultures, gram-positive cocci in clusters 1 of 4 bottles suggesting staph. Currently on cefepime, metronidazole, and Zyvox, per ID. Denies any nausea or pain currently. Continue IV antibiotics. 05-20 Acute metabolic encephalopathy, slow to improve No acute intracranial hemorrhage. 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 Right LE vascular compromise Marked left hydroureteronephrosis-Chronic with ureteral stricture Possible sundowning admit blood cultures emperic iv antibiotics, zosyn, renal dosing Nephrology consult cvc bed Cardiology consulted wound care nurse consulted duonebs qid CRP PROCALCITONIN Trend troponin i DC Zosyn IV empiric cefepime and Flagyl Continue linezolid Change Alvares if not done already Right foot x-ray anticipate LOS > 3 DAYS 28 min pt exam, chart review, > 50% of time spent with exam, chart review, pt care coordination Vitals/I&O Vitals/I&O: Vital Signs Date Time Temp Pulse Resp B/P (MAP) Pulse Ox O2 Delivery O2 Flow Rate FiO2 05/24/21 11:41 Room Air 05/24/21 11:00 98.3 74 18 153/69 (97) 92 98.3 05/23/21 19:33 2.0 I & O 05/23/21 05/23/21 05/24/21 15:00 23:00 07:00 Intake Total 458 ml 118 ml 360 ml Balance 458 ml 118 ml 360 ml Physical Exam Physical Exam: General alert awake male in no acute distress appears comfortable HEENT normocephalic atraumatic oropharynx clear Neck supple Lungs clear anteriorly Heart S1-S2 Abdominal soft bowel sounds present nontender Alvares in place Extremities previous left BKA unremarkable, right lower extremity erythema and warmth anterior armijo. There is an ulcer distal TMA with no drainage Derm warm dry no generalized rash except for above Neuro alert awake male in no acute distress / weakness Psych calm General: Other (Mildly more alert today.) Heart: Regular rate Lungs: Clear Abdomen: Normal bowel sounds Extremities: No clubbing, No cyanosis Labs Labs: Laboratory Tests Test 05/23/21 16:51 05/24/21 06:50 05/24/21 07:45 05/24/21 12:15 Glucose (Fingerstick) 169 mg/dL (70-99) 127 mg/dL (70-99) 125 mg/dL (70-99) White Blood Count 9.7 x10^3/uL (4.0-11.0) Red Blood Count 3.48 x10^6/uL (4.30-5.70) Hemoglobin 10.6 g/dL (13.0-17.5) Hematocrit 31.9 % (39.0-53.0) Mean Corpuscular Volume 92 fL (79-100) Mean Corpuscular Hemoglobin 30 pg (25-35) Mean Corpuscular Hemoglobin Concent 33 g/dL (31-37) Red Cell Distribution Width 14.1 % (11.5-14.5) Platelet Count 247 x10^3/uL (140-400) Neutrophils (%) (Auto) 78 % (31-73) Lymphocytes (%) (Auto) 9 % (24-48) Monocytes (%) (Auto) 8 % (0-9) Eosinophils (%) (Auto) 5 % (0-3) Basophils (%) (Auto) 0 % (0-3) Neutrophils # (Auto) 7.6 x10^3/uL (1.8-7.7) Lymphocytes # (Auto) 0.9 x10^3/uL (1.0-4.8) Monocytes # (Auto) 0.8 x10^3/uL (0.0-1.1) Eosinophils # (Auto) 0.5 x10^3/uL (0.0-0.7) Basophils # (Auto) 0.0 x10^3/uL (0.0-0.2) Sodium Level 141 mmol/L (136-145) Potassium Level 3.6 mmol/L (3.5-5.1) Chloride Level 106 mmol/L (98-107) Carbon Dioxide Level 29 mmol/L (21-32) Anion Gap 6 (6-14) Blood Urea Nitrogen 14 mg/dL (8-26) Creatinine 1.3 mg/dL (0.7-1.3) Estimated GFR (Cockcroft-Gault) 53.8 Glucose Level 141 mg/dL (70-99) Calcium Level 7.9 mg/dL (8.5-10.1) Assessment and Plan Assessmemt and Plan Problems Medical Problems: (1) Altered mental status Status: Acute Comment Review of Relevant I have reviewed the following items magalie (where applicable) has been applied. Medications: Current Medications Medications (Trade) Dose Ordered Sig/Zeeshan Route PRN Reason Start Time Stop Time Status Last Admin Dose Admin Loperamide HCl (Imodium) 2 mg PRN Q15MIN PRN PO DIARRHEA 05/23/21 20:15 05/24/21 08:54 Justifications for Admission General Conditions Altered mental status?: Yes Justification of admission: Patient has tachycardia (> 100 beats per minute) or hypotension (SBP < 90 mm Hg) leading to inadequate systemic perfusion as indicated by severe/persistent altered mental status. Other justification for admit: toxic metabolic encephalopathy Chest Pain Indications Justification for admission: aba Other Justification Sepsis and encephalopathy RAQUEL [place] MD May 24, 2021 12:46
[2021-05-24 15:00] VITALS: BP 133/50
--- NOTE | 2021-05-24 16:27 | NUR ---
Wound Care Wound Type/Assessment: patient seen per wound care follow up. see wound assessment. patient has a Right plantar DFU to the right plantar foot. Wound has improved from last assessment. There is callous but it appears stable. Patient is planned to discharge to [place] with Hospice following discharge. Wound cleansed and assessed. Treatment Recommendations/Plan: Recommendations for Betadine and foam dressing. Change every 2- 3 days. Our ENVIRONMENTAL LEAD will see patient at [place] after discharge. Offloading surface/device: Patient repositioned using wedge and pillows. Patient educated on dressing changes and POC. Recommended Referrals/Tests: N/A Discharge Recommendations for dressings: Dressing change instructions left in room. No other wounds noted. Bed lowered and call light in reach Wound care will follow up with patient on 05/31/21.
[2021-05-24] MEDS: DAPTOmycin (GENERIC) IVPB 480 MG in IV NORMAL SALINE 50ML 50 ML IV SCH (16:49)
[2021-05-24 19:29] VITALS: BP 137/52
[2021-05-24] MEDS: ATORVASTATIN CALCIUM 40 MG TABLET. PO SCH (21:46)
[2021-05-24 23:58] VITALS: BP 156/74
[2021-05-25 03:04] VITALS: BP 130/52
[2021-05-25] MEDS: LEVOTHYROXINE 50 MCG TABLET PO SCH (06:00)
[2021-05-25 07:00] VITALS: BP 156/68
[2021-05-25] MEDS: IPRATRPIUM/ALBUTEROL 0.5/2.5MG 3 ML NEBU. NEB SCH ×2 (07:32→11:47)
[2021-05-25 08:08] LABS: BASO # 0.1 x10^3/uL (0.0-0.2); BASO % 1 % (0-3); EOS # 0.4 x10^3/uL (0.0-0.7); EOS % 4 % (0-3); HEMATOCRIT 31.1 % (39.0-53.0); HEMOGLOBIN 10.4 g/dL (13.0-17.5); LYMPH # 1.1 x10^3/uL (1.0-4.8); LYMPH % 11 % (24-48); MEAN CORPUSCULAR HEMOGLOBIN 31 pg (25-35); MEAN CORPUSCULAR HGB CONC 33 g/dL (31-37); MEAN CORPUSCULAR VOLUME 92 fL (79-100); MONO % 10 % (0-9); NEUT # 7.7 x10^3/uL (1.8-7.7); NEUT % 75 % (31-73); PLATELET COUNT 285 x10^3/uL (140-400); RED CELL DISTRIBUTION WIDTH 14.3 % (11.5-14.5); WHITE BLOOD COUNT 10.2 x10^3/uL (4.0-11.0)
[2021-05-25 08:11] LABS: CALCIUM 7.9 mg/dL (8.5-10.1); CREATININE 1.2 mg/dL (0.7-1.3); POTASSIUM 3.5 mmol/L (3.5-5.1)
[2021-05-25] MEDS: METOPROLOL SUCC 24HR ER 25 MG TAB.ER.24H. PO SCH (08:29)
[2021-05-25] MEDS: ASPIRIN ENTERIC COATED 81 MG TABLET.DR. PO SCH (08:30)
--- NOTE | 2021-05-25 08:30 | PDOC ---
Infectious Disease Note Subjective: Subjective Patient sleepy but arousable comfortable Discussed with Dr. William, RN, social service Patient has been transitioned to hospice but family is requesting for p.o. antibiotics Vital Signs: Vital Signs Vital Signs Date Time Temp Pulse Resp B/P (MAP) Pulse Ox O2 Delivery O2 Flow Rate FiO2 05/25/21 07:33 Room Air 05/25/21 07:00 98.5 76 20 156/68 (97) 92 98.5 Physical Exam: PHYSICAL EXAM General alert awake male in no acute distress appears comfortable HEENT normocephalic atraumatic oropharynx clear Neck supple Lungs clear anteriorly Heart S1-S2 Abdominal soft bowel sounds present nontender Alvares in place Extremities previous left BKA unremarkable, right lower extremity erythema and warmth anterior armijo. There is an ulcer distal TMA with no drainage Derm warm dry no generalized rash except for above Neuro alert awake male in no acute distress / weakness Psych calm Medications: Inpatient Meds: Medications reviewed. Labs: Lab Laboratory Tests Test 05/24/21 12:15 05/24/21 17:06 05/24/21 20:45 05/25/21 07:25 Glucose (Fingerstick) 125 mg/dL (70-99) 237 mg/dL (70-99) 234 mg/dL (70-99) White Blood Count 10.2 x10^3/uL (4.0-11.0) Red Blood Count 3.40 x10^6/uL (4.30-5.70) Hemoglobin 10.4 g/dL (13.0-17.5) Hematocrit 31.1 % (39.0-53.0) Mean Corpuscular Volume 92 fL (79-100) Mean Corpuscular Hemoglobin 31 pg (25-35) Mean Corpuscular Hemoglobin Concent 33 g/dL (31-37) Red Cell Distribution Width 14.3 % (11.5-14.5) Platelet Count 285 x10^3/uL (140-400) Neutrophils (%) (Auto) 75 % (31-73) Lymphocytes (%) (Auto) 11 % (24-48) Monocytes (%) (Auto) 10 % (0-9) Eosinophils (%) (Auto) 4 % (0-3) Basophils (%) (Auto) 1 % (0-3) Neutrophils # (Auto) 7.7 x10^3/uL (1.8-7.7) Lymphocytes # (Auto) 1.1 x10^3/uL (1.0-4.8) Monocytes # (Auto) 1.0 x10^3/uL (0.0-1.1) Eosinophils # (Auto) 0.4 x10^3/uL (0.0-0.7) Basophils # (Auto) 0.1 x10^3/uL (0.0-0.2) Sodium Level 144 mmol/L (136-145) Potassium Level 3.5 mmol/L (3.5-5.1) Chloride Level 107 mmol/L (98-107) Carbon Dioxide Level 31 mmol/L (21-32) Anion Gap 6 (6-14) Blood Urea Nitrogen 13 mg/dL (8-26) Creatinine 1.2 mg/dL (0.7-1.3) Estimated GFR (Cockcroft-Gault) 59.0 Glucose Level 58 mg/dL (70-99) Calcium Level 7.9 mg/dL (8.5-10.1) Creatine Kinase 41 U/L (39-308) Test 05/25/21 07:27 05/25/21 08:26 Glucose (Fingerstick) 59 mg/dL (70-99) 86 mg/dL (70-99) Micro RUN DATE: 05/23/21 [facility] LAB *LIVE* PAGE 1 RUN TIME: 855 Specimen Inquiry PATIENT: EVE DEMPSEY ACCT: [id number] LOC: [address] [place] [address] U: [id number] AGE/SX: 76/M ROOM: 204 RE05/17/[address]: KYAW HERNANDEZ MD : 1945 BED: 1 DIS: STATUS: ADM IN TLOC: SPEC #: [id number] LILLY: 05/18/21 STATUS: COMP REQ #: [id number] RECD: 05/18/[address]: ELISABETH WHEATLEY APRN SOURCE: BLOOD ENTR: 05/21/21-[address] [facility] [address]: LOVE CRAIG MD SPDC: ORDERED: BLD CULT - LC Procedure Result BLOOD CULTURE LC Final Final GRAM POSITIVE COCCI FINAL ID= [STAPHYLOCOCCUS AUREUS (MRSA)] STAPHYLOCOCCUS AUREUS (MRSA) ANTIMICROBIAL SUSCEPTIBILITY Final Comment POS NORMA TYPE 38 STAPHYLOCOCCUS AUREUS (MRSA) ANTIBIOTIC RESULT INTERPRETATION AZITHROMYCIN >4 R CLINDAMYCIN <=0.25 S CEFOXITIN SCREEN >4 POS CIPROFLOXACIN >2 R CEFTAROLINE <=0.5 S DAPTOMYCIN <=0.5 S ERYTHROMYCIN >4 R GENTAMICIN <=4 S INDUCIBLE CLINDAMYCIN <=4/0.5 NEG LINEZOLID 2 S LEVOFLOXACIN 4 I OXACILLIN >2 R PENICILLIN >2 R* RIFAMPIN <=1 S TRIMETHOPRIM/SULFAMETHOXAZOLE <=0.5/9.5 S TETRACYCLINE <=4 S VANCOMYCIN 1 S Unless otherwise specified, Testing Performed by: [address] [address] For Inquires, the Physician may contact the Microbiology department at [phone] END OF REPORT Objective: Assessment: MRSA bacteremia May 21 Fever improved Leukocytosis could be reactive Encephalopathy CT head negative for acute process improving Chronic nonhealing right diabetic foot wound with history of TMA in the past -x ray neg for OM History of left BKA Diabetes mellitus with neuropathy Peripheral vascular disease Chronic renal insufficiency History of dementia and CVA residential resident Chronic diastolic CHF Anemia Plan: Plan of Care Continue daptomycin Patient has been transitioned to hospice Linezolid 600 mg p.o. twice daily for 14 days per family request Discussed with Dr. William Discussed with RN Discussed with case management JESSA CALLAHAN MD May 25, 2021 08:29
[2021-05-25] MEDS: SERTRALINE 50 MG TABLET. PO SCH (08:31)
[2021-05-25] MEDS: CLOPIDOGREL BISULFATE 75 MG TABLET PO SCH (08:31)
[2021-05-25] MEDS: POLYVINYL ALCOHOL 1.4% OPHTH SOLUTION 15ML BOTTLE. OU SCH ×2 (08:32→13:00)
[2021-05-25] MEDS: LACTOBACILLUS RHAMNOSUS GG 1 CAPSULE. PO SCH (08:32)
[2021-05-25] MEDS: INSULIN GLARGINE SYRINGE. SQ SCH (08:37)
[2021-05-25] MEDS: DAPTOmycin (GENERIC) IVPB 480 MG in IV NORMAL SALINE 50ML 50 ML IV SCH (10:00)
--- NOTE | 2021-05-25 10:06 | PDOC ---
[employer] PROGRESS NOTE Date of Service DOS: DATE: 05/25/21 TIME: 10:04 Chief Complaint Chief Complaint VTE Prophylaxis Ordered VTE Prophylaxis Devices: No VTE Pharmacological Prophylaxi: Yes Assessment/Plan Assessment/Plan IMPRESSION: Acute metabolic encephalopathy No acute intracranial hemorrhage. 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 Patient is alert but NOT oriented to self BUT poor historian. 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 Findings are stable WBC 13.7 . WITH LEFT SHIFT, blood culture done x 1 in ER 76-year-old male with history of left BKA in 2019 He has a history of a right TMA He has a very small right foot wound on the plantar surface overlying his fifth metatarsal head minimal erythema // right TMA He has been treated for several other medical issues, including acute infectious encephalopathy, HCAP, ABA, anemia. He is a poor historian, history obtaining is difficult. hx RECENT percutaneous arterial intervention on the left leg, The patient was unable to give me accurate history. Wound care consulted, NEPHROLOGY CONSULTED PO KAYEXYLATE 15 GM X 1 pending, Cardiology consulted. emperic iv zosyn dosed renally hx Right DFU with underlying peripheral artery disease, status post recent angiogram with balloon angioplasty MARCH 2021 05/25/2021: Afebrile, no acute overnight. Patient seen resting comfortably in bed. Per family request, he will discharge back to [facility] on hospice to complete his antibiotic course of oral linezolid x14 days. Greater than 30 minutes spent managing discharge this patient. 05/24/2021: No acute events overnight, patient resting comfortably in bed. Antibiotics have been switched to daptomycin, per ID. Repeat blood cultures pending. Discussed with Dr. Hernandez, family has agreed with hospice and will discuss discontinuing antibiotics pending goals of treatment. 05/23/2021: Afebrile overnight, no complaints this morning. Bacterial sens itivities resulted: Continue with cefepime, Flagyl, Zyvox per ID. I discussion with patient's family after their conversation with [facility]; they are agreeable to pursue hospice care at [facility] once stable. Critical care time 30 minutes spent reviewing charts, reviewing labs, reviewing imaging, discussion with patient and family. Advance Care Planning: Total time spent [id number] with patient 16 minutes in discussion with goals of care, comfort care, end-of-life care, pain management, code status; patient names son as surrogate decision-maker. 05/22/2021: Patient seen and evaluated bedside. Afebrile, currently breathing room air; no new complaints today. Blood cultures resulted Staph aureus. We will continue cefepime, metronidazole, and Zyvox, per ID. Await blood culture susceptibilities. 05/21/2021: Afebrile, currently breathing on 2 L nasal cannula. He had positive blood cultures, gram-positive cocci in clusters 1 of 4 bottles suggesting staph. Currently on cefepime, metronidazole, and Zyvox, per ID. Denies any nausea or pain currently. Continue IV antibiotics. 05-20 Acute metabolic encephalopathy, slow to improve No acute intracranial hemorrhage. 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 Right LE vascular compromise Marked left hydroureteronephrosis-Chronic with ureteral stricture Possible sundowning admit blood cultures emperic iv antibiotics, zosyn, renal dosing Nephrology consult cvc bed Cardiology consulted wound care nurse consulted duonebs qid CRP PROCALCITONIN Trend troponin i DC Zosyn IV empiric cefepime and Flagyl Continue linezolid Change Alvares if not done already Right foot x-ray anticipate LOS > 4 DAYS 27 min pt exam, chart review, > 50% of time spent with exam, chart review, pt care coordination 05-19 Acute metabolic encephalopathy No acute intracranial hemorrhage. 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 Right LE vascular compromise Marked left hydroureteronephrosis-Chronic with ureteral stricture Possible sundowning admit blood cultures emperic iv antibiotics, zosyn, renal dosing Nephrology consult cvc bed Cardiology consulted wound care nurse consulted duonebs qid CRP PROCALCITONIN Trend troponin i DC Zosyn IV empiric cefepime and Flagyl Continue linezolid Change Alvares if not done already Right foot x-ray anticipate LOS > 3 DAYS 28 min pt exam, chart review, > 50% of time spent with exam, chart review, pt ca re coordination Vitals/I&O Vitals/I&O: Vital Signs Date Time Temp Pulse Resp B/P (MAP) Pulse Ox O2 Delivery O2 Flow Rate FiO2 05/25/21 08:29 76 156/68 05/25/21 08:00 Room Air 2.0 05/25/21 07:00 98.5 20 92 98.5 I & O 05/24/21 05/24/21 05/25/21 15:00 23:00 07:00 Intake Total 300 ml 250 ml 260 ml Balance 300 ml 250 ml 260 ml Physical Exam Physical Exam: General alert awake male in no acute distress appears comfortable HEENT normocephalic atraumatic oropharynx clear Neck supple Lungs clear anteriorly Heart S1-S2 Abdominal soft bowel sounds present nontender Alvares in place Extremities previous left BKA unremarkable, right lower extremity erythema and warmth anterior armijo. There is an ulcer distal TMA with no drainage Derm warm dry no generalized rash except for above Neuro alert awake male in no acute distress / weakness Psych calm General: Other (Mildly more alert today.) Heart: Regular rate Lungs: Clear Abdomen: Normal bowel sounds Extremities: No clubbing, No cyanosis Labs Labs: Laboratory Tests Test 05/24/21 12:15 05/24/21 17:06 05/24/21 20:45 05/25/21 07:25 Glucose (Fingerstick) 125 mg/dL (70-99) 237 mg/dL (70-99) 234 mg/dL (70-99) White Blood Count 10.2 x10^3/uL (4.0-11.0) Red Blood Count 3.40 x10^6/uL (4.30-5.70) Hemoglobin 10.4 g/dL (13.0-17.5) Hematocrit 31.1 % (39.0-53.0) Mean Corpuscular Volume 92 fL (79-100) Mean Corpuscular Hemoglobin 31 pg (25-35) Mean Corpuscular Hemoglobin Concent 33 g/dL (31-37) Red Cell Distribution Width 14.3 % (11.5-14.5) Platelet Count 285 x10^3/uL (140-400) Neutrophils (%) (Auto) 75 % (31-73) Lymphocytes (%) (Auto) 11 % (24-48) Monocytes (%) (Auto) 10 % (0-9) Eosinophils (%) (Auto) 4 % (0-3) Basophils (%) (Auto) 1 % (0-3) Neutrophils # (Auto) 7.7 x10^3/uL (1.8-7.7) Lymphocytes # (Auto) 1.1 x10^3/uL (1.0-4.8) Monocytes # (Auto) 1.0 x10^3/uL (0.0-1.1) Eosinophils # (Auto) 0.4 x10^3/uL (0.0-0.7) Basophils # (Auto) 0.1 x10^3/uL (0.0-0.2) Sodium Level 144 mmol/L (136-145) Potassium Level 3.5 mmol/L (3.5-5.1) Chloride Level 107 mmol/L (98-107) Carbon Dioxide Level 31 mmol/L (21-32) Anion Gap 6 (6-14) Blood Urea Nitrogen 13 mg/dL (8-26) Creatinine 1.2 mg/dL (0.7-1.3) Estimated GFR (Cockcroft-Gault) 59.0 Glucose Level 58 mg/dL (70-99) Calcium Level 7.9 mg/dL (8.5-10.1) Creatine Kinase 41 U/L (39-308) Test 05/25/21 07:27 05/25/21 08:26 Glucose (Fingerstick) 59 mg/dL (70-99) 86 mg/dL (70-99) Assessment and Plan Assessmemt and Plan Problems Medical Problems: (1) Altered mental status Status: Acute Comment Review of Relevant I have reviewed the following items magalie (where applicable) has been applied. Justifications for Admission General Conditions Altered mental status?: Yes Justification of admission: Patient has tachycardia (> 100 beats per minute) or hypotension (SBP < 90 mm Hg) leading to inadequate systemic perfusion as indicated by severe/persistent altered mental status. Other justification for admit: toxic metabolic encephalopathy Chest Pain Indications Justification for admission: aba Other Justification Sepsis and encephalopathy RAQUEL EVANS MD May 25, 2021 10:06
--- NOTE | 2021-05-25 10:07 | PDOC ---
DATE OF SERVICE DATE: 05/25/21 TIME: 10:06 SUBJECTIVE ROS stable, No new concerns per nursing OBJECTIVE Vital Signs Vital Signs Date Time Temp Pulse Resp B/P (MAP) Pulse Ox O2 Delivery O2 Flow Rate FiO2 05/25/21 08:29 76 156/68 05/25/21 08:00 Room Air 2.0 05/25/21 07:00 98.5 20 92 98.5 I & 0 Intake and Output 05/25/21 07:00 Intake Total 810 ml Balance 810 ml Intake Oral 810 ml # Voids 8 PHYSICAL EXAM Physical Exam GENERAL:NAD HEENT: Om moist NECK: Supple. LUNGS: Clear to auscultation.Non labored HEART: Normal S1, S2. ABDOMEN: Obese, soft, nontender with bowel sounds present. EXTREMITIES: Previous left BKA SKIN: Warm to touch. No signs of generalized rash. NEUROLOGIC: Alert, answering simple questions, poor historian. No bui DIAGNOSIS/ASSESSMENT Assessment & Plan ABA - Vasomotor , resolved , back to his baseline ,Non Oliguric, fluid balance avoid nephrotoxins, supportive care CKD STAGE 3 b - baseline Cr ~2.0, No show for his follow up appts as OP .Marked left hydroureteronephrosis-Chronic with ureteral stricture (in the past pt had refused Urology consult) CT - point of transition is in the ureter at the pelvic brim, no focal abnormality such as a calculus, focal stricture cannot be excluded. Hydronephrosis appears long-standing as there is severe cortical thinning of the left kidney. Fever/ Leukocytosis resolved HTN - cardiology managing Chronic nonhealing right diabetic foot wound with history of TMA in the past History of left BKA Diabetes mellitus with neuropathy Peripheral vascular disease History of dementia and CVA Chronic diastolic CHF Will sign off COMMENT/RELEVANT DATA Meds Current Medications Medications (Trade) Dose Ordered Sig/Zeeshan Start Time Stop Time Status Last Admin Dose Admin Acetaminophen (Tylenol Supp) 650 mg PRN Q4HRS PRN 05/18/21 12:00 Acetaminophen (Tylenol) 650 mg PRN Q4HRS PRN 05/18/21 12:00 Albuterol/ Ipratropium (Duoneb) 3 ml Q4HRS W/A 05/18/21 14:00 05/25/21 07:32 3 ML Aspirin (Ecotrin) 81 mg DAILYWBKFT 05/18/21 08:00 05/25/21 08:30 81 MG Atorvastatin Calcium (Lipitor) 40 mg HS 05/18/21 21:00 05/24/21 21:46 40 MG Cefepime HCl (Maxipime) 1 gm Q8HRS 05/19/21 14:00 05/24/21 14:25 DC 05/23/21 20:47 1 GM Clopidogrel Bisulfate (Plavix) 75 mg DAILYWBKFT 05/18/21 08:00 05/25/21 08:31 75 MG Daptomycin 480 mg/ Sodium Chloride 50 ml @ 100 mls/hr Q24H 05/24/21 10:00 05/24/21 16:49 100 MLS/HR Docusate Sodium (Colace) 100 mg PRN BID PRN 05/18/21 12:00 Enoxaparin Sodium (Lovenox 40mg Syringe) 40 mg Q24H 05/18/21 12:00 05/24/21 12:30 40 MG Furosemide (Lasix) 20 mg 1X ONCE 05/17/21 23:45 05/17/21 23:46 DC 05/18/21 00:36 20 MG Glycerin/ Hypromellose/ Polyethylene (Artificial Tears) 1 drop QID 05/18/21 09:00 05/25/21 08:32 1 DROP Guaifenesin (Robitussin) 200 mg PRN Q4HRS PRN 05/18/21 12:00 Insulin Glargine (Lantus Syringe) 15 unit BID 05/18/21 09:00 05/25/21 08:37 15 UNIT Insulin Human Lispro (HumaLOG) 5 units DAILYWLUN 05/18/21 12:00 05/23/21 12:07 5 UNITS Lactobacillus Rhamnosus (Culturelle) 1 cap BID 05/19/21 21:00 05/25/21 08:32 1 CAP Levothyroxine Sodium (Synthroid) 50 mcg DAILY06 05/18/21 06:00 05/25/21 06:00 50 MCG Linezolid/Dextrose 300 ml @ 300 mls/hr Q12HR 05/19/21 11:00 05/24/21 08:45 DC 05/23/21 20:48 300 MLS/HR Loperamide HCl (Imodium) 2 mg PRN Q15MIN PRN 05/23/21 20:15 05/24/21 08:54 2 MG Lorazepam (Ativan Inj) 1 mg 1X ONCE 05/17/21 21:30 05/17/21 21:31 DC Metoprolol Succinate (Toprol Xl) 25 mg DAILY 05/18/21 09:00 05/25/21 08:29 25 MG Metronidazole 100 ml @ 100 mls/hr Q12HR 05/19/21 21:00 05/24/21 14:25 DC 05/23/21 20:47 100 MLS/HR Morphine Sulfate (Morphine Sulfate) 2 mg PRN Q2HR PRN 05/17/21 20:45 05/18/21 20:44 DC Ondansetron HCl (Zofran) 4 mg PRN Q4HRS PRN 05/18/21 12:00 Piperacillin Sod/ Tazobactam Sod (Zosyn Per Pharmacy) 1 each PRN DAILY PRN 05/18/21 11:15 05/19/21 10:41 DC Piperacillin Sod/ Tazobactam Sod 2.25 gm/Sodium Chloride 50 ml @ 100 mls/hr Q6HRS 05/18/21 12:00 05/19/21 10:39 DC 05/19/21 05:38 100 MLS/HR Potassium Bicarbonate (Potassium Effervescent Tablet) 40 meq 1X ONCE 05/23/21 11:30 05/23/21 11:31 DC 05/23/21 12:00 40 MEQ Sennosides (Senna) 8.6 mg PRN BID PRN 05/17/21 23:30 Sertraline HCl (Zoloft) 125 mg DAILY 05/18/21 09:00 05/25/21 08:31 125 MG Sodium Monofluorophosphate (Fleet Adult) 133 ml PRN DAILY PRN 05/18/21 12:00 Sodium Polystyrene Sulfonate (Kayexalate) 15 gm 1X ONCE 05/18/21 11:30 05/18/21 11:31 DC 05/18/21 12:00 15 GM Sodium Chloride 1,000 ml @ 65 mls/hr [id number] 05/18/21 12:00 05/23/21 15:54 65 MLS/HR Sodium Chloride (Normal Saline Flush) 3 ml QSHIFT PRN 05/18/21 12:00 Lab Laboratory Tests Test 05/24/21 12:15 05/24/21 17:06 05/24/21 20:45 05/25/21 07:25 Glucose (Fingerstick) 125 mg/dL (70-99) 237 mg/dL (70-99) 234 mg/dL (70-99) White Blood Count 10.2 x10^3/uL (4.0-11.0) Red Blood Count 3.40 x10^6/uL (4.30-5.70) Hemoglobin 10.4 g/dL (13.0-17.5) Hematocrit 31.1 % (39.0-53.0) Mean Corpuscular Volume 92 fL (79-100) Mean Corpuscular Hemoglobin 31 pg (25-35) Mean Corpuscular Hemoglobin Concent 33 g/dL (31-37) Red Cell Distribution Width 14.3 % (11.5-14.5) Platelet Count 285 x10^3/uL (140-400) Neutrophils (%) (Auto) 75 % (31-73) Lymphocytes (%) (Auto) 11 % (24-48) Monocytes (%) (Auto) 10 % (0-9) Eosinophils (%) (Auto) 4 % (0-3) Basophils (%) (Auto) 1 % (0-3) Neutrophils # (Auto) 7.7 x10^3/uL (1.8-7.7) Lymphocytes # (Auto) 1.1 x10^3/uL (1.0-4.8) Monocytes # (Auto) 1.0 x10^3/uL (0.0-1.1) Eosinophils # (Auto) 0.4 x10^3/uL (0.0-0.7) Basophils # (Auto) 0.1 x10^3/uL (0.0-0.2) Sodium Level 144 mmol/L (136-145) Potassium Level 3.5 mmol/L (3.5-5.1) Chloride Level 107 mmol/L (98-107) Carbon Dioxide Level 31 mmol/L (21-32) Anion Gap 6 (6-14) Blood Urea Nitrogen 13 mg/dL (8-26) Creatinine 1.2 mg/dL (0.7-1.3) Estimated GFR (Cockcroft-Gault) 59.0 Glucose Level 58 mg/dL (70-99) Calcium Level 7.9 mg/dL (8.5-10.1) Creatine Kinase 41 U/L (39-308) Test 05/25/21 07:27 05/25/21 08:26 Glucose (Fingerstick) 59 mg/dL (70-99) 86 mg/dL (70-99) Results All relevant outside records, renal labs, imaging studies, telemetry/EKG's were reviewed. Justicifation of Admission Dx: Justifications for Admission: Justification of Admission Dx: Yes RICHIE GONZALEZ MD May 25, 2021 10:07
--- NOTE | 2021-05-25 10:20 | PDOC3 ---
Discharge Summary Visit Information Date of Admission: May 18, 2021 Date of Discharge: May 25, 2021 Final Diagnosis Problems Medical Problems: (1) Altered mental status Status: Acute Brief Hospital Course Allergies Allergies Coded Allergies Type Severity Reaction Last Updated Verified I S O L A T I O N *CONTACT* Allergy Unknown 05/21/21 Yes No Known Medication Allergies Allergy Unknown 03/12/21 Yes Vital Signs Vital Signs Date Time Temp Pulse Resp B/P (MAP) Pulse Ox O2 Delivery O2 Flow Rate FiO2 05/25/21 08:29 76 156/68 05/25/21 08:00 Room Air 2.0 05/25/21 07:00 98.5 20 92 98.5 Lab Results Laboratory Tests Test 05/23/21 11:59 05/23/21 16:51 05/24/21 06:50 05/24/21 07:45 Glucose (Fingerstick) 174 mg/dL (70-99) 169 mg/dL (70-99) 127 mg/dL (70-99) White Blood Count 9.7 x10^3/uL (4.0-11.0) Red Blood Count 3.48 x10^6/uL (4.30-5.70) Hemoglobin 10.6 g/dL (13.0-17.5) Hematocrit 31.9 % (39.0-53.0) Mean Corpuscular Volume 92 fL (79-100) Mean Corpuscular Hemoglobin 30 pg (25-35) Mean Corpuscular Hemoglobin Concent 33 g/dL (31-37) Red Cell Distribution Width 14.1 % (11.5-14.5) Platelet Count 247 x10^3/uL (140-400) Neutrophils (%) (Auto) 78 % (31-73) Lymphocytes (%) (Auto) 9 % (24-48) Monocytes (%) (Auto) 8 % (0-9) Eosinophils (%) (Auto) 5 % (0-3) Basophils (%) (Auto) 0 % (0-3) Neutrophils # (Auto) 7.6 x10^3/uL (1.8-7.7) Lymphocytes # (Auto) 0.9 x10^3/uL (1.0-4.8) Monocytes # (Auto) 0.8 x10^3/uL (0.0-1.1) Eosinophils # (Auto) 0.5 x10^3/uL (0.0-0.7) Basophils # (Auto) 0.0 x10^3/uL (0.0-0.2) Sodium Level 141 mmol/L (136-145) Potassium Level 3.6 mmol/L (3.5-5.1) Chloride Level 106 mmol/L (98-107) Carbon Dioxide Level 29 mmol/L (21-32) Anion Gap 6 (6-14) Blood Urea Nitrogen 14 mg/dL (8-26) Creatinine 1.3 mg/dL (0.7-1.3) Estimated GFR (Cockcroft-Gault) 53.8 Glucose Level 141 mg/dL (70-99) Calcium Level 7.9 mg/dL (8.5-10.1) Test 05/24/21 12:15 05/24/21 17:06 05/24/21 20:45 05/25/21 07:25 Glucose (Fingerstick) 125 mg/dL (70-99) 237 mg/dL (70-99) 234 mg/dL (70-99) White Blood Count 10.2 x10^3/uL (4.0-11.0) Red Blood Count 3.40 x10^6/uL (4.30-5.70) Hemoglobin 10.4 g/dL (13.0-17.5) Hematocrit 31.1 % (39.0-53.0) Mean Corpuscular Volume 92 fL (79-100) Mean Corpuscular Hemoglobin 31 pg (25-35) Mean Corpuscular Hemoglobin Concent 33 g/dL (31-37) Red Cell Distribution Width 14.3 % (11.5-14.5) Platelet Count 285 x10^3/uL (140-400) Neutrophils (%) (Auto) 75 % (31-73) Lymphocytes (%) (Auto) 11 % (24-48) Monocytes (%) (Auto) 10 % (0-9) Eosinophils (%) (Auto) 4 % (0-3) Basophils (%) (Auto) 1 % (0-3) Neutrophils # (Auto) 7.7 x10^3/uL (1.8-7.7) Lymphocytes # (Auto) 1.1 x10^3/uL (1.0-4.8) Monocytes # (Auto) 1.0 x10^3/uL (0.0-1.1) Eosinophils # (Auto) 0.4 x10^3/uL (0.0-0.7) Basophils # (Auto) 0.1 x10^3/uL (0.0-0.2) Sodium Level 144 mmol/L (136-145) Potassium Level 3.5 mmol/L (3.5-5.1) Chloride Level 107 mmol/L (98-107) Carbon Dioxide Level 31 mmol/L (21-32) Anion Gap 6 (6-14) Blood Urea Nitrogen 13 mg/dL (8-26) Creatinine 1.2 mg/dL (0.7-1.3) Estimated GFR (Cockcroft-Gault) 59.0 Glucose Level 58 mg/dL (70-99) Calcium Level 7.9 mg/dL (8.5-10.1) Creatine Kinase 41 U/L (39-308) Test 05/25/21 07:27 05/25/21 08:26 Glucose (Fingerstick) 59 mg/dL (70-99) 86 mg/dL (70-99) Laboratory Tests Test 05/24/21 12:15 05/24/21 17:06 05/24/21 20:45 05/25/21 07:25 Glucose (Fingerstick) 125 mg/dL (70-99) 237 mg/dL (70-99) 234 mg/dL (70-99) White Blood Count 10.2 x10^3/uL (4.0-11.0) Red Blood Count 3.40 x10^6/uL (4.30-5.70) Hemoglobin 10.4 g/dL (13.0-17.5) Hematocrit 31.1 % (39.0-53.0) Mean Corpuscular Volume 92 fL (79-100) Mean Corpuscular Hemoglobin 31 pg (25-35) Mean Corpuscular Hemoglobin Concent 33 g/dL (31-37) Red Cell Distribution Width 14.3 % (11.5-14.5) Platelet Count 285 x10^3/uL (140-400) Neutrophils (%) (Auto) 75 % (31-73) Lymphocytes (%) (Auto) 11 % (24-48) Monocytes (%) (Auto) 10 % (0-9) Eosinophils (%) (Auto) 4 % (0-3) Basophils (%) (Auto) 1 % (0-3) Neutrophils # (Auto) 7.7 x10^3/uL (1.8-7.7) Lymphocytes # (Auto) 1.1 x10^3/uL (1.0-4.8) Monocytes # (Auto) 1.0 x10^3/uL (0.0-1.1) Eosinophils # (Auto) 0.4 x10^3/uL (0.0-0.7) Basophils # (Auto) 0.1 x10^3/uL (0.0-0.2) Sodium Level 144 mmol/L (136-145) Potassium Level 3.5 mmol/L (3.5-5.1) Chloride Level 107 mmol/L (98-107) Carbon Dioxide Level 31 mmol/L (21-32) Anion Gap 6 (6-14) Blood Urea Nitrogen 13 mg/dL (8-26) Creatinine 1.2 mg/dL (0.7-1.3) Estimated GFR (Cockcroft-Gault) 59.0 Glucose Level 58 mg/dL (70-99) Calcium Level 7.9 mg/dL (8.5-10.1) Creatine Kinase 41 U/L (39-308) Test 05/25/21 07:27 05/25/21 08:26 Glucose (Fingerstick) 59 mg/dL (70-99) 86 mg/dL (70-99) Brief Hospital Course Mr. 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 Consultation placed to ID, nephrology, cardiology. 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 Lab work as above is significant for mild elevation in potassium as well as glucose. He was treated broadly with antibiotics, cefepime, metronidazole, and daptomycin. Blood cultures grew MRSA susceptible to daptomycin and antibiotics were de-escalated. Renal function improved with IV fluids. After discussion with DPOA and family, due to poor quality of life and adult failure to thrive they met with [facility] and were agreeable the patient should discharge home back to his long- term care facility on hospice. After improvement in his mental status he was stable to discharge back to [place] on oral linezolid x14 days with hospice care. Discharge Information Condition at Discharge: Stable Disposition/Orders: D/C to Home w/ Hospice Scheduled Aspirin (Aspirin Ec) 81 Mg Tablet.dr, 81 MG PO DAILYWBKFT for BLOOD FLOW for 30 Days, #30 Prescribed by: SUSAN COSTA MD on 01/11/19 1358 Last Action: Continued on 05/17/212315 by KYAW HERNANDEZ MD Atorvastatin Calcium (Lipitor) 40 Mg Tablet, 40 MG PO HS for FOR CHOLESTEROL, #30 Ref 0 (Reported) Entered as Reported by: DESTIN VILLANUEVA on 04/09/17 1636 Last Action: Continued on 05/17/212315 by KYAW HERNANDEZ MD Carboxymethylcellulos/Glycerin (Refresh Optive Eye Drops) 15 Ml Drops, 1 DROP LEFTEYE QID for keratoconjunctivitis, #30 Ref 6 (Reported) Entered as Reported by: ANNE MOORE on 11/18/2016 Last Action: Converted on 05/17/212315 by KYAW HERNANDEZ MD Clopidogrel Bisulfate (Clopidogrel) 75 Mg Tablet, 75 MG PO DAILYWBKFT for pvd for 30 Days, #30 Prescribed by: RITCHIE CARLOS MD on 04/27/19 111 Last Action: Continued on 05/17/212315 by KYAW HERNANDEZ MD Insulin Aspart (Novolog) 100 Unit/1 Ml Cartridge, 5 UNIT SQ DAILYWLUN for dm, (Reported) Entered as Reported by: ANNE MOORE on 11/18/2016 Last Action: Converted on 05/17/212315 by KYAW HERNANDEZ MD Insulin Detemir (Levemir) 100 Unit/1 Ml Vial, 15 UNIT SQ BID for dm, (Reported) Entered as Reported by: ANNE MOORE on 11/18/2016 Last Action: Converted on 05/17/212315 by KYAW HERNANDEZ MD Lactobacillus Rhamnosus Gg (Culturelle) 1 Each Cap.sprink, 1 CAP PO BID for SUPPLEMENT for 30 Days, #60 Prescribed by: SUSAN COSTA MD on 03/15/21 1247 Last Action: Reviewed on 05/17/212312 by SIMON VALVERDE Levothyroxine Sodium (Synthroid) 50 Mcg Tablet, 50 MCG PO DAILYAC for THYROID SUPPLEMENT, #30 Ref 0 (Reported) Entered as Reported by: DESTIN VILLANUEVA on 04/09/171635 Last Action: Continued on 05/17/212315 by KYAW HERNANDEZ MD Lisinopril (Lisinopril) 20 Mg Tablet, 20 MG PO DAILY for FOR HYPERTENSION, #30 Ref 0 (Reported) Entered as Reported by: SIMON VALVERDE on 05/17/212312 Last Action: New Order on 05/17/212312 by SIMON VALVERDE Melatonin (Melatonin) 3 Mg Tablet, 2 TAB PO QHS for insomnia, #30 Ref 2 (Reported) Entered as Reported by: ANNE MOORE on 11/18/2016 Last Action: Reviewed on 05/17/212312 by SIMNO VALVERDE Metoprolol Succinate (Metoprolol Succinate ( Xl )) 25 Mg Tab.er.24h, 25 MG PO DAILY for FOR HYPERTENSION, #30 Ref 0 (Reported) Entered as Reported by: DESTIN VILLANUEVA on 04/09/171635 Last Action: Continued on 05/17/212315 by KYAW HERNANDEZ MD Polymyxin B Sulf/Trimethoprim (Polytrim Eye Drops) 10 Ml Drops, 1 DROP LEFTEYE BID for marginal corneal ulcer, #10 (Reported) Entered as Reported by: ANNE MOORE on 11/18/2016 Last Action: Reviewed on 05/17/212312 by SIMON VALVERDE Potassium Chloride (Potassium Chloride ) 20 Meq Tablet.er, 20 MEQ PO DAILY for supplement, (Reported) Entered as Reported by: MATTHEW BUTLER on 04/13/19 1030 Last Action: HELD on 05/17/212315 by KYAW HERNANDEZ MD Sertraline Hcl (Zoloft) 100 Mg Tablet, 125 MG PO DAILY for ANTI-DEPRESSANT, Ref 0 (Reported) Entered as Reported by: Tyler Davis on 03/06/212001 Last Action: Converted on 05/17/212315 by KYAW HERNANDEZ MD [erythromycin oint] , OS BID, (Reported) Entered as Reported by: ANNE MOORE on 11/18/2016 Last Action: Reviewed on 05/17/212312 by SIMON VALVERDE Scheduled PRN Acetaminophen (Acetaminophen) 325 Mg Tablet, 650 MG PO PRN Q4HRS PRN for TEMP OVER 100.4F OR MILD PAIN for 30 Days, #100 Prescribed by: SUSAN COSTA MD on 03/15/211246 Last Action: Reviewed on 05/17/212312 by SIMON VALVERDE Docusate Sodium (Dok) 100 Mg Capsule, 100 MG PO PRN DAILY PRN for HARD STOOLS for 30 Days, #60 Prescribed by: SUSAN COSTA MD on 03/15/211246 Last Action: Continued on 05/17/212315 by KYAW HERNANDEZ MD Furosemide (Furosemide) 40 Mg Tablet, 1 TAB PO PRN DAILY PRN for swelling or 3# weight gain for 30 Days, #30 Ref 5 Prescribed by: RASHARD PATEL MD on 11/20/20 1341 Last Action: Reviewed on 05/17/212312 by SIMON VALVERDE Sennosides (Senna) 8.8 Mg/5 Ml Syrup, 8.8 MG PO PRN Q12HR PRN for CONSTIPATION, (Reported) Entered as Reported by: ANNE MOORE on 11/18/20 0017 Last Action: Converted on 05/17/212315 by KYAW HERNANDEZ MD Justicifation of Admission Dx: Justifications for Admission: Justification of Admission Dx: Yes RAQUEL EVANS MD May 25, 2021 10:20
[2021-05-25] MEDS ORDERED: LINE600T12 PO (10:24)
--- NOTE | 2021-05-25 10:28 | SNU/HH DC ---
DISCHARGE ORDERS DISCHARGE INFORMATION: DISCHARGE DATE: May 25, 2021 FINAL DIAGNOSIS Problems Medical Problems: (1) Altered mental status Status: Acute CONDITION ON DISCHARGE: Guarded CODE STATUS: Code Status: DNR/DNI HOSPICE: HOSPICE: Yes HOSPICE EVAL & TREAT: Yes LTAC: ADMIT TO LTAC: Yes POST DISCHARGE ORDERS: ACTIVITY ORDERS: Activity as tolerated WEIGHT BEARING STATUS: As tolerated DIET AFTER DISCHARGE: ADA WOUND/INCISION CARE: Keep wound elevated, Change dressing CHECKS AFTER DISCHARGE: CHECKS AFTER DISCHARGE: Check blood press - daily, Check blood sugar, ac/hs, Check your Temp as needed, Weigh Yourself Daily TREATMENT/EQUIPMENT ORDERS: ADAPTIVE EQUIPMENT NEEDED: None, Front wheeled walker Physical Therapy For: Evalulation/Treatment Occupational Therapy For: Evaluation/Treatment Speech Language Pathology For: Evaluation/Treatment DISCHARGE MEDICATIONS: Home Meds Active Scripts Lactobacillus Rhamnosus Gg (CULTURELLE) 1 Each Cap.sprink, 1 CAP PO BID for SUPPLEMENT for 30 Days, #60 CAP Prov:SUSAN COSTA MD 03/15/21 Docusate Sodium (DOK) 100 Mg Capsule, 100 MG PO PRN DAILY PRN for HARD STOOLS for 30 Days, #60 CAP Prov:SUSAN COSTA MD 03/15/21 Acetaminophen (ACETAMINOPHEN) 325 Mg Tablet, 650 MG PO PRN Q4HRS PRN for TEMP OVER 100.4F OR MILD PAIN for 30 Days, #100 TAB Prov:SUSAN COSTA MD 03/15/21 Furosemide (FUROSEMIDE) 40 Mg Tablet, 1 TAB PO PRN DAILY PRN for swelling or 3# weight gain for 30 Days, #30 TAB 5 Refills Prov:RASHARD PATEL MD 11/20/20 Clopidogrel Bisulfate (CLOPIDOGREL) 75 Mg Tablet, 75 MG PO DAILYWBKFT for pvd for 30 Days, #30 TAB Prov:RITCHIE CARLOS MD 04/27/19 Aspirin (ASPIRIN EC) 81 Mg Tablet.dr, 81 MG PO DAILYWBKFT for BLOOD FLOW for 30 Days, #30 TAB.SR Prov:SUSAN COSTA MD 01/11/19 Reported Medications Lisinopril (LISINOPRIL) 20 Mg Tablet, 20 MG PO DAILY for FOR HYPERTENSION, #30 TAB 0 Refills 05/17/21 Sertraline Hcl (ZOLOFT) 100 Mg Tablet, 125 MG PO DAILY for ANTI-DEPRESSANT, TAB 0 Refills 03/06/21 Polymyxin B Sulf/Trimethoprim (POLYTRIM EYE DROPS) 10 Ml Drops, 1 DROP LEFTEYE BID for marginal corneal ulcer, #10 ML 11/18/20 Insulin Aspart (NOVOLOG) 100 Unit/1 Ml Cartridge, 5 UNIT SQ DAILYWLUN for dm, EACH 11/18/20 Carboxymethylcellulos/Glycerin (REFRESH OPTIVE EYE DROPS) 15 Ml Drops, 1 DROP LEFTEYE QID for keratoconjunctivitis, #30 ML 6 Refills 11/18/20 Sennosides (SENNA) 8.8 Mg/5 Ml Syrup, 8.8 MG PO PRN Q12HR PRN for CONSTIPATION, MISC 11/18/20 Melatonin (MELATONIN) 3 Mg Tablet, 2 TAB PO QHS for insomnia, #30 TAB 2 Refills 11/18/20 Insulin Detemir (LEVEMIR) 100 Unit/1 Ml Vial, 15 UNIT SQ BID for dm, VIAL 11/18/20 [erythromycin oint] No Conflict Check, OS BID 11/18/20 Potassium Chloride (POTASSIUM CHLORIDE ) 20 Meq Tablet.er, 20 MEQ PO DAILY for supplement, TAB.SR 04/13/19 Metoprolol Succinate (METOPROLOL SUCCINATE ( XL )) 25 Mg Tab.er.24h, 25 MG PO DAILY for FOR HYPERTENSION, #30 TAB 0 Refills 04/09/17 Atorvastatin Calcium (LIPITOR) 40 Mg Tablet, 40 MG PO HS for FOR CHOLESTEROL, #30 TAB 0 Refills 04/09/17 Levothyroxine Sodium (SYNTHROID) 50 Mcg Tablet, 50 MCG PO DAILYAC for THYROID SUPPLEMENT, #30 TAB 0 Refills 04/09/17 RAQUEL EVANS MD May 25, 2021 10:28
[2021-05-25 11:00] VITALS: BP 134/43
[2021-05-25] MEDS: ENOXAPARIN 40 MG/0.4 ML SYRINGE. SQ SCH (12:00)
[2021-05-25] MEDS: INSULIN LISPRO 300 UNITS/3 ML VIAL. SQ SCH (12:00)
[2021-05-25] MEDS: IV NORMAL SALINE 1000ML BAG 1,000 ML IV SCH (13:24)
--- NOTE | 2021-05-25 14:28 | NUR ---
DISCHARGED PATIENT TO [facility]. REPORT GIVEN TO NURSING STAFF. HEART MONITOR REMOVED. [facility] HERE, ESCORTED PATIETN OFF UNIT PER STRETCHER.
== END 2021-05-25 14:25 | disposition hospice, inpatient (51) | DRG 682 ==
LOC: ER 17:44 → 2 NORTH 20:20
PROVIDERS: ADMIT Internal Medicine; ATTEND Internal Medicine
DX: N17.0 Acute kidney failure with tubular necrosis (principal); G93.41 Metabolic encephalopathy; I13.0 Hypertensive heart and chronic kidney disease with heart failure and stage 1 through stage 4 chronic kidney disease, or unspecified chronic kidney disease; I24.8 Other forms of acute ischemic heart disease; I50.32 Chronic diastolic (congestive) heart failure; D64.9 Anemia, unspecified; E03.9 Hypothyroidism, unspecified; E11.22 Type 2 diabetes mellitus with diabetic chronic kidney disease; E11.42 Type 2 diabetes mellitus with diabetic polyneuropathy; E11.51 Type 2 diabetes mellitus with diabetic peripheral angiopathy without gangrene; E78.00 Pure hypercholesterolemia, unspecified; E78.5 Hyperlipidemia, unspecified; E87.5 Hyperkalemia; F03.90 Unspecified dementia, unspecified severity, without behavioral disturbance, psychotic disturbance, mood disturbance, and anxiety; F42.9 Obsessive-compulsive disorder, unspecified; G47.00 Insomnia, unspecified; I25.10 Atherosclerotic heart disease of native coronary artery without angina pectoris; I70.201 Unspecified atherosclerosis of native arteries of extremities, right leg; N13.30 Unspecified hydronephrosis; N40.0 Benign prostatic hyperplasia without lower urinary tract symptoms; Z51.5 Encounter for palliative care; Z79.02 Long term (current) use of antithrombotics/antiplatelets; Z79.4 Long term (current) use of insulin; Z79.82 Long term (current) use of aspirin; Z79.890 Hormone replacement therapy; Z79.899 Other long term (current) drug therapy; Z82.49 Family history of ischemic heart disease and other diseases of the circulatory system; Z83.3 Family history of diabetes mellitus; Z86.73 Personal history of transient ischemic attack (TIA), and cerebral infarction without residual deficits; Z89.512 Acquired absence of left leg below knee; Z98.62 Peripheral vascular angioplasty status; F41.9 Anxiety disorder, unspecified; M19.90 Unspecified osteoarthritis, unspecified site; Z68.27 Body mass index [BMI] 27.0-27.9, adult; B95.62 Methicillin resistant Staphylococcus aureus infection as the cause of diseases classified elsewhere; Z90.49 Acquired absence of other specified parts of digestive tract; N18.32 Chronic kidney disease, stage 3b; T36.8X5A Adverse effect of other systemic antibiotics, initial encounter; Y92.89 Other specified places as the place of occurrence of the external cause
CPT/HCPCS: 36415; 70450; 71045; 73630; 80048; 80053; 81001; 82550; 82553; 82962; 83605; 83735; 83880; 84145; 84443; 84484; 85007; 85025; 86140; 87040; 87205; 87641; 93005; 94640; 94760; J0692; J0878; J1650; J1815; J1940; J2020; J2543; J3490; J7030; 92526-GN; 92610-GN; 97530-GO; 97535-GO; 99285-25; G0378